=== PATIENT | female | born 1930 | race Caucasian/White ===

== ENCOUNTER 2016-08-20 15:05 | Inpatient (IN) | payer OTHER, MEDICARE ==
[~2016-08-20] VITALS: Ht 152.4 cm; Wt 55.0 kg
[2016-08-20 15:06] VITALS: BP 141/74; PULSE 90; RESP 14; TEMP 98.4; O2SAT 95
--- NOTE | 2016-08-20 15:59 | PD ---
HPI . Dementia with behavioral disturbance Chief Complaint: Psychiatric Symptoms Time Seen by Provider: 15:53 Travel History International Travel<30 days: No Contact w/Intl Traveler<30days: No Traveled to known affect area: No History of Present Illness HPI The history is obtained entirely from the [id number]-[id number]-ccz because of both dementia and language barrier. The [id number] states that the patient has been physically well. However, she has been becoming progressively more aggressive. She is starting to physically fight with family members. She is claiming that she is going to take all of her money out of the bank and go back to [place]. The bdtmdlyr-bs-eky that the patient is not safe at home. PFSH Social History Tobacco Use: No Allergies-Medications (Allergen,Severity, Reaction): Coded Allergies: No Known Allergies (Unverified , 08/20/16) Reported Meds & Prescriptions Reported Meds & Active Scripts Active Reported Quetiapine (Quetiapine Fumarate) 25 Mg Tab 25 Mg PO DAILY Isosorbide Mononitrate ER (Isosorbide Mononitrate) 60 Mg Tab 60 Mg PO DAILY Lisinopril 2.5 Mg Tab 2.5 Mg PO DAILY Atenolol 25 Mg Tab 12.5 Mg PO DAILY Atorvastatin (Atorvastatin Calcium) 40 Mg Tab 40 Mg PO HS Sertraline (Sertraline HCl) 25 Mg Tab 25 Mg PO DAILY Donepezil 10 Mg Tab 10 Mg PO HS Namenda (Memantine) 10 Mg Tab 10 Mg PO BID Warfarin 3 Mg Tab 3 Mg PO DAILY Aspirin 81 Mg Chew 81 Mg CHEW DAILY Review of Systems ROS Limitations: Language Barrier, Poor Historian Physical Exam Narrative GENERAL: This is an angry appearing elderly woman who is currently sitting calmly in a chair. However, she reportedly just slammed her purse down in triage. SKIN: Warm and dry. HEAD: Atraumatic. Normocephalic. EYES: Pupils equal and round. ENT: No nasal bleeding or discharge. Mucous membranes pink and moist. NECK: Trachea midline. CARDIOVASCULAR: Regular rate and rhythm. RESPIRATORY: No accessory muscle use. GASTROINTESTINAL: Abdomen soft, non-tender, nondistended. MUSCULOSKELETAL: No obvious deformities. No edema. NEUROLOGICAL: Awake and alert. No obvious cranial nerve deficits. Motor grossly within normal limits. PSYCHIATRIC: Patient appears angry. She has reportedly had outbursts. Data Data Last Documented VS Vital Signs Date Time Temp Pulse Resp B/P Pulse Ox O2 Delivery O2 Flow Rate FiO2 08/20/16 15:06 98.4 90 14 141/74 95 Room Air Orders Complete Blood Count With Diff (08/20/16 15:53) Comprehensive Metabolic Panel (08/20/16 15:53) Urinalysis - C+S If Indicated (08/20/16 15:53) Electrocardiogram (08/20/16 15:53) Psych Screen (08/20/16 15:53) Drug Screen, Random Urine (08/20/16 15:53) MDM Medical Decision Making Medical Screen Exam Complete: Yes Emergency Medical Condition: Yes Medical Record Reviewed: Yes (she has no previous records here for review.) Differential Diagnosis Differential diagnosis includes infection, intoxication, psychosis, dementia with behavioral disturbance. Narrative Course Patient presents voluntarily for evaluation of dementia with progressively worsening behavioral disturbance. The [id number]-[id number] states that the police have been involved and he intended to bring her here as a [place] Act in there custody. However, the patient agreed to come voluntarily as long as her came with her. She will be cleared medically. Diagnosis Primary Impression: Dementia with behavioral disturbance Qualified Code: G30.1 - Late onset Alzheimer's disease with behavioral disturbance Condition: Stable Juany Torre MD Aug 20, 2016 15:59
[2016-08-20] MEDS ORDERED: QUET1TAB7 PO (16:05)
[2016-08-20] MEDS ORDERED: DONE10TA7 PO (16:05)
[2016-08-20] MEDS ORDERED: WARF-58 PO ×2 (16:05→23:43)
[2016-08-20] MEDS ORDERED: LISI2.5T3 PO (16:05)
[2016-08-20] MEDS ORDERED: NAME10TA PO (16:05)
[2016-08-20] MEDS ORDERED: ATOR40TA16 PO (16:05)
[2016-08-20] MEDS ORDERED: ATEN25TA PO (16:05)
[2016-08-20] MEDS ORDERED: SERT25TA83 PO (16:05)
[2016-08-20] MEDS ORDERED: ISOS60TA PO (16:05)
[2016-08-20] MEDS ORDERED: ASPI81CH CHEW (16:05)
[2016-08-20 16:45] LABS: AUTOMATED NEUTROPHIL # 4.7 TH/MM3 (1.8-7.7); BASOPHIL % 0.3 % (0.0-2.0); EOSINOPHIL # 0.1 TH/MM3 (0-0.4); EOSINOPHIL % 0.9 % (0.0-4.0); HEMO FLAGS DIFF FINAL; LYMPH % 23.2 % (9.0-44.0); LYMPHOCYTE # 1.6 TH/MM3 (1.0-4.8); MEAN CELL VOLUME 93.9 FL (80.0-100.0); MEAN CORPUSCULAR HGB CONC 34.1 % (32.0-36.0); MONO % 8.2 % (0.0-8.0); NEUT % 67.4 % (16.0-70.0); PLATELET COUNT 180 TH/MM3 (150-450); RED BLOOD COUNT 3.94 MIL/MM3 (4.00-5.30); RED CELL DISTRIBUTION WIDTH 14.8 % (11.6-17.2)
[2016-08-20 17:04] LABS: ALT (GPT) 26 U/L (10-53); ANION GAP 10 MEQ/L (5-15); AST (GOT) 26 U/L (15-37); BICARBONATE 23.2 MEQ/L (21.0-32.0); BLOOD UREA NITROGEN 23 MG/DL (7-18); CHLORIDE 108 MEQ/L (98-107); POTASSIUM 4.2 MEQ/L (3.5-5.1); SODIUM (NA) 141 MEQ/L (136-145)
[2016-08-20 17:08] LABS: ALKALINE PHOSPHATASE 156 U/L (45-117); GLOMERULAR FILTRATION RATE 36 ML/MIN (>89); TOTAL BILIRUBIN ADULT 0.4 MG/DL (0.2-1.0)
[2016-08-20 17:08] LABS: BACTERIA, URINE RARE /hpf; BLOOD, URINE TRACE (NEG); COMMENT (UR) CULT NOT INDICATED; CULTURE IF INDICATED CULT NOT INDICATED; GLUCOSE,URINE NEG (NEG); KETONE, URINE NEG (NEG); NITRITE,URINE NEG (NEG); RENAL EPITHELIAL CELLS <1 /hpf; SQUAMOUS EPITHELIAL CELL URINE 1 /hpf (0-5); URINE COLOR YELLOW (YELLW/STRAW)
[2016-08-20 17:13] LABS: AMPHETAMINE, URINE NEG (NEG); BARBITURATES, URINE NEG (NEG); COCAINE, URINE NEG (NEG)
[2016-08-20 20:00] VITALS: BP 148/87; PULSE 88; RESP 16
[2016-08-20] MEDS ORDERED: WARF-23 PO (23:04)
[2016-08-20] MEDS ORDERED: COUM5TAB PO (23:43)
[2016-08-20] MEDS ORDERED: PILL SPLITTER OTHER PRN (23:45)
[2016-08-21] MEDS: MEMANTINE HCL 5 MG TAB PO SCH ×3 (00:15→21:47)
[2016-08-21] MEDS: DONEPEZIL HCL 5 MG TAB PO SCH ×2 (00:15→21:47)
[2016-08-21] MEDS: ATORVASTATIN 40 MG TAB PO SCH ×2 (00:16→21:47)
[2016-08-21 00:47] VITALS: BP 188/86; PULSE 90; RESP 18; TEMP 97.9; O2SAT 97
[2016-08-21 05:29] VITALS: BP 143/63; PULSE 91; RESP 14; TEMP 98.3; O2SAT 97
[2016-08-21] MEDS ORDERED: cloNIDine HCL 0.1 MG TAB PO PRN (06:00)
[2016-08-21 07:40] LABS: AUTOMATED NEUTROPHIL # 3.2 TH/MM3 (1.8-7.7); BASOPHIL % 0.6 % (0.0-2.0); EOSINOPHIL # 0.1 TH/MM3 (0-0.4); EOSINOPHIL % 1.8 % (0.0-4.0); HEMO FLAGS DIFF FINAL; LYMPH % 25.7 % (9.0-44.0); LYMPHOCYTE # 1.4 TH/MM3 (1.0-4.8); MEAN CELL VOLUME 92.7 FL (80.0-100.0); MEAN CORPUSCULAR HEMOGLOBIN 31.8 PG (27.0-34.0); MEAN CORPUSCULAR HGB CONC 34.3 % (32.0-36.0); MONO % 12.5 % (0.0-8.0); NEUT % 59.4 % (16.0-70.0); PLATELET COUNT 164 TH/MM3 (150-450); RED BLOOD COUNT 3.67 MIL/MM3 (4.00-5.30); RED CELL DISTRIBUTION WIDTH 14.7 % (11.6-17.2); WHITE BLOOD COUNT 5.4 TH/MM3 (4.0-11.0)
[2016-08-21 07:41] LABS: INTERNATIONAL NORMALIZED RATIO 2.2 RATIO; PROTHROMBIN TIME - PATIENT 24.9 SEC (9.8-11.6)
[2016-08-21 08:00] LABS: ANION GAP 10 MEQ/L (5-15); BICARBONATE 23.9 MEQ/L (21.0-32.0); BLOOD UREA NITROGEN 18 MG/DL (7-18); CHLORIDE 110 MEQ/L (98-107); GLOMERULAR FILTRATION RATE 45 ML/MIN (>89); POTASSIUM 3.9 MEQ/L (3.5-5.1); SODIUM (NA) 144 MEQ/L (136-145)
[2016-08-21 08:02] LABS: HDL CHOLESTEROL 63.1 MG/DL (40.0-60.0); LDL CHOLESTEROL 63 MG/DL (0-99)
--- NOTE | 2016-08-21 09:31 | PD.PN.STU ---
Subjective Remarks Patient is an 85 yo female admitted to the hospital last night, who is here due to aggressive and combative behavior as per her family over the last few days. Patient was visited in her room by Dr. Rey De La Rosa, Nurse Christi, and OLIVIA Toledo. She was initally lying in bed, only to sit upright to speak to a tele-head inspector via the computer. She cooperates well and spoke to the head inspector efficiently. She appears to be confused on where she is, and what she is here for, as well as who she lives with. She states she lives with her and has one son. Objective Vitals Vital Signs Date Time Temp Pulse Resp B/P Pulse Ox O2 Delivery O2 Flow Rate FiO2 08/21/16 05:29 98.3 91 14 143/63 97 08/21/16 00:47 97.9 90 18 188/86 97 08/20/16 20:00 88 16 148/87 08/20/16 15:06 98.4 90 14 141/74 95 Room Air I/O 08/20/16 08/20/16 08/20/16 08/21/16 08/21/16 08/21/16 07:00 15:00 23:00 07:00 15:00 23:00 Intake Total 0 ml Balance 0 ml Intake Oral 0 ml Result Diagram: 08/21/16 0654 08/21/16 0654 [place] Child M3 Aug 21, 2016 09:31
--- NOTE | 2016-08-21 09:31 | HHI.HP ---
Provisional Diagnosis Admission Date Aug 20, 2016 at 22:53 Damar I. Dementia with behavioral disturbances F03.91 Certification of Person's Competence To Provide Express and Informed Consent I have personally examined Zarina Garcia , a person being served at [facility] on, Aug 21, 2016 09:16. Express and informed consent means consent voluntarily given in writing, by a competent person, after sufficient explanation and disclosure of the subject matter involved to enable the person to make a knowing and willful decision without any element of force, fraud, deceit, duress, or other form of constraint or coercion. This person is 18 years of age or older, is not now known to be incompetent to consent to treatment with a guardian advocate, and does not have a health care surrogate or proxy currently making medical treatment decisions. I have found this person to be one of the following: [] Competent to provide express and informed consent, as defined above, for voluntary admission to this facility and is competent to provide express and informed consent for treatment. He/she has the consistent capacity to make well reasoned, willful, and knowing decisions concerning his or her medical or mental health treatment. The person fully and consistently understands the purpose of the admission for examination/placement and is fully capable of personally exercising all rights [place] [x] Incompetent to provide express and informed consent to voluntary admission, and this is incompetent to provide express and informed consent to treatment. The person must be transferred to involuntary status and a petition for a guardian advocate filed with the Circuit Court. [] Refusing to provide express and informed consent to voluntary admission but is competent to provide express and informed consent for treatment. The person must be discharged or transferred to involuntary status. Form shall be completed within 24 hours of a person's arrival at the receiving facility and filed in the clinical record of each person: 1. Admitted on a voluntary basis 2. Permitted to provide express and informed consent to his/her own treatment 3. Allowed to transfer from involuntary to voluntary status 4. Prior to permitting a person to consent to his or her own treatment after having been previously found incompetent to consent to treatment. History of Present Illness Capacity: Lacks Capacity HPI Patient is an 85-year-old Samoan female Lao speaking was initially brought to the ED by and Dillon act in the ED by Dr. Nigel regand 20 August at 1600 hrs. stating dementia with behavioral disturbances aggressive towards others threatening to leave the country to an area or no one is available to care for her not eating appropriately despite adequate food availability. Patient seen screened in ED and toxicology negative urinalysis negative. Patient seen in her room with nurse Christi, medical student [place], with an information consultant services through the computer. Patient is somewhat nervous and anxious responding to questions through the monitor. She is disoriented in all 4 spheres though she denies voices or visions stating she lives with her and no one else. Stating that her father is alive and 60 years old. She does denies suicidality homicidality, denies alcohol or drugs , denies any past psychiatric history. She is otherwise continued to be guarded and vigilant. She did deny any physical and/or sexual abuse. She stated she had 2 children. This time the patient does meet criteria for involuntary psychiatric hospitalization under the Dillon act I'll do first opinion requests second opinion I feel she does not have capacity thus I'll ask for healthcare surrogate and a guardian advocate. We do have a hospitalist consult to elicits patient is a history of cardiac issues and has a pacemaker at the present time that he is functioning. We'll call the patient's daughter she'll attempt to meet with us today at about 11 AM she did state to the nurse that she has power of transactional attorney. We will meet with her to further discuss and get details about this lady and discuss possible placement and behaviors and medication Review of Systems ROS Limitations: Other (language difficulties) Constitutional: DENIES: Diaphoretic episodes, Fatigue, Fever, Weight gain, Weight loss, Chills, Dizziness, Change in appetite, Night Sweats Endocrine: DENIES: Abnorml menstrual pattern, Heat/cold intolerance, Polydipsia , Polyuria, Polyphagia Eyes: DENIES: Blurred vision, Diplopia, Eye inflammation, Eye pain, Vision loss , Photosensitivity, Double Vision Ears, nose, mouth, throat: DENIES: Tinnitus, Hearing loss, Vertigo, Nasal discharge, Oral lesions, Throat pain, Hoarseness, Ear Pain, Running Nose, Epistaxis, Sinus Pain, Toothache, Odynophagia Respiratory: DENIES: Apneas, Cough, Snoring, Wheezing, Hemoptysis, Sputum production, Shortness of breath Cardiovascular: DENIES: Chest pain, Palpitations, Syncope, Dyspnea on Exertion , PND, Lower Extremity Edema, Orthopnea, Claudication Gastrointestinal: DENIES: Abdominal pain, Black stools, Bloody stools, Constipation, Diarrhea, Nausea, Vomiting, Difficulty Swallowing, Anorexia Musculoskeletal: DENIES: Joint pain, Muscle aches, Stiffness, Joint Swelling, Back pain, Neck pain Integumentary: DENIES: Abnormal pigmentation, Pruritus, Rash, Nail changes, Breast masses, Breast skin changes, Nipple discharge Hematologic/lymphatic: DENIES: Bruising, Lymphadenopathy Immunologic/allergic: DENIES: Eczema, Urticaria Neurologic: DENIES: Abnormal gait, Headache, Localized weakness, Paresthesias, Seizures, Speech Problems, Tremor, Poor Balance Psychiatric: COMPLAINS OF: Anxiety, Confusion, Agitation (at home) Past Psych History Psychological trauma history Denies Violence risk - others (6 mos) Has been aggressive towards family Violence risk - self (6 mos) Denies Substance Abuse History Drugs/Alcohol past 12 months Denies Past Family Social History Coded Allergies: No Known Allergies (Unverified , 08/20/16) Past Medical History History of pacemaker insertion about 5 years ago Reported Medications Warfarin (Coumadin)5 Mg Tab5 Mg PO DAILY #30 TAB Ref 0 08/20/16 Warfarin 3 Mg Tab3 Mg PO DAILY #30 TAB Ref 0 08/20/16 Quetiapine 25 Mg Tab25 Mg PO DAILY #30 TAB Ref 0 08/20/16 Isosorbide Mononitrate ER 60 Mg Tab60 Mg PO DAILY #30 TAB Ref 0 08/20/16 Lisinopril 2.5 Mg Tab2.5 Mg PO DAILY #30 TAB Ref 0 08/20/16 Atenolol 25 Mg Tab12.5 Mg PO DAILY #30 TAB Ref 0 08/20/16 Atorvastatin 40 Mg Tab40 Mg PO HS #30 TAB Ref 0 08/20/16 Sertraline 25 Mg Tab25 Mg PO DAILY #30 TAB Ref 0 08/20/16 Donepezil 10 Mg Tab10 Mg PO HS #30 TAB Ref 0 08/20/16 Memantine (Namenda)10 Mg Tab10 Mg PO BID #30 TAB Ref 0 08/20/16 Aspirin 81 Mg Chew81 Mg CHEW DAILY Ref 0 08/20/16 Discontinued Reported Medications Warfarin 5 Mg Tab5 Mg PO WEEKLY #30 TAB Ref 0 08/20/16 Warfarin 3 Mg Tab3 Mg PO DAILY #30 TAB Ref 0 08/20/16 Current Medications Medications (Trade) Dose Ordered Sig/Mauricio Route Start Time Stop Time Status Last Admin (Aspirin Chew) 81 mg DAILY PO 08/21/16 09:00 (Namenda) 10 mg BID PO 08/20/16 23:29 08/21/16 00:15 (Aricept) 10 mg HS PO 08/20/16 23:30 08/21/16 00:15 (Zoloft) 25 mg DAILY PO 08/21/16 09:00 (Lipitor) 40 mg HS PO 08/20/16 23:31 08/21/16 00:16 (Tenormin) 12.5 mg DAILY PO 08/21/16 09:00 (Imdur) 60 mg DAILY PO 08/21/16 09:00 (SEROquel) 25 mg DAILY PO 08/21/16 09:00 (Pill Splitter) 1 ea UNSCH PRN OTHER 08/20/16 23:45 Lisinopril 2.5 mg 2.5 mg DAILY PO 08/21/16 09:00 Hold (Coumadin Consult Pharmacy) 0 ml @ 0 mls/hr UNSCH OTHER 08/21/16 06:00 (Catapres) 0.1 mg Q6H PRN PO 08/21/16 06:00 Family History Denies history mental illness and family Social History Patient given confusing history about whom she lives with initially stating she has one child is some that appears her daughter brought her in Patient's Strengths (min. 2) Patient verbal appears cooperative appears to have supportive family Physical Exam Patient seen screened in ED exam reviewed and agreed with the signs blood pressure 143/63 pulse 91 respirations 14 Vital Signs Vital Signs Date Time Temp Pulse Resp B/P Pulse Ox O2 Delivery O2 Flow Rate FiO2 08/21/16 05:29 98.3 91 14 143/63 97 08/20/16 15:06 Room Air Mental Status Examination Alert diffusely disorganized and confused female appears younger than her stated age ready for years. She is guarded in her responses with her significant language difficulties Appearance Fairly clean and neat Speech: Other (patient speaks only Lao that appears to be somewhat confused and disorganized) Orientation: Person (vaguely) Memory: Impaired (describe) Thought Process: Circumstantial Thought Content: Unremarkable Hallucination Type: None Attention and Concentration: Other (fair) Suicidal Ideation: No Previous Suicide Attempts: No Homicidal Ideation: No (though aggressive towards family) Previous Homicide Attempts: No Insight: Poor Judgement: Poor Affect: Other (slight increase range of motion intensity) Mood: Sad, Anxious Motor Activity: Normal gait Assessment & Plan Problem List: (1) Dementia with behavioral disturbance ICD Code: F03.91 Assessment & Plan Estimated LOS 5-7: days this time patient meets criteria for involuntary psychiatric hospitalization of the Dillon act I'll do first opinion requests second opinion. I feel she does not have capacity thus I'll ask for healthcare surrogate and a guardian advocate. We'll meet with patient's family today at about 11 AM to get further information Discharge Planning To be determined Request HC Surrog/Guard Advoc?: Yes Problem Qualifiers (1) Dementia with behavioral disturbance: Qualified Code: G30.1 - Late onset Alzheimer's disease with behavioral disturbance Ruben De La Rosa MD Aug 21, 2016 09:31
[2016-08-21] MEDS ORDERED: MAGNESIUM HYDROXIDE SUSP 30 ML CUP PO PRN (10:00)
[2016-08-21] MEDS: ISOSORBIDE MONONITRATE 60 MG TAB PO SCH (10:25)
[2016-08-21] MEDS: QUEtiapine FUMARATE 25 MG TAB PO SCH (10:25)
[2016-08-21] MEDS: SERTRALINE HCL 50 MG TAB PO SCH (10:27)
[2016-08-21] MEDS: ASPIRIN 81 MG CHEW TAB PO SCH (10:28)
[2016-08-21] MEDS: ATENOLOL 25 MG TAB PO SCH (10:28)
--- NOTE | 2016-08-21 10:55 | PD.CONS ---
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 She is now admitted to inpatient psychiatry unit for further evaluation. Consulted for medical management. Patient seen today. Romanian-speaking. States she is doing well. Confirmed medical history of CABG with mechanical valve on Coumadin and with pacemaker. She cannot remember her medications nor latest INR. States that she is being followed by her primary care doctor. Denies pain and discomfort. Denies SOB/ dyspnea. Denies chest pain, palpitations, headaches, dizziness. Denies fevers, chills, n/v/d. Review of Systems Except as stated in HPI: all other systems reviewed are Neg Past Family Social History Allergies: Coded Allergies: No Known Allergies (Unverified , 08/20/16) Past Medical History CAD - recent stress tests on Imdur HTN HLD Polyps Past Surgical History CABG with AVR mechanical valve 5 years ago - on Coumadin Polyp removal Reported Medications Quetiapine (Quetiapine Fumarate) 25 Mg Tab 25 Mg PO DAILY Isosorbide Mononitrate ER (Isosorbide Mononitrate) 60 Mg Tab 60 Mg PO DAILY Lisinopril 2.5 Mg Tab 2.5 Mg PO DAILY Atenolol 25 Mg Tab 12.5 Mg PO DAILY Atorvastatin (Atorvastatin Calcium) 40 Mg Tab 40 Mg PO HS Sertraline (Sertraline HCl) 25 Mg Tab 25 Mg PO DAILY Donepezil 10 Mg Tab 10 Mg PO HS Namenda (Memantine) 10 Mg Tab 10 Mg PO BID Warfarin 3 Mg Tab 3 Mg PO DAILY Aspirin 81 Mg Chew 81 Mg CHEW DAILY Active Ordered Medications Current Medications Medications (Trade) Dose Ordered Sig/Mauricio Route Start Time Stop Time Status Last Admin (Aspirin Chew) 81 mg DAILY PO 08/21/16 09:00 08/21/16 10:28 (Namenda) 10 mg BID PO 08/20/16 23:29 08/21/16 10:26 (Aricept) 10 mg HS PO 08/20/16 23:30 08/21/16 00:15 (Zoloft) 25 mg DAILY PO 08/21/16 09:00 08/21/16 10:27 (Lipitor) 40 mg HS PO 08/20/16 23:31 08/21/16 00:16 (Tenormin) 12.5 mg DAILY PO 08/21/16 09:00 08/21/16 10:28 (Imdur) 60 mg DAILY PO 08/21/16 09:00 08/21/16 10:25 (SEROquel) 25 mg DAILY PO 08/21/16 09:00 08/21/16 10:25 (Pill Splitter) 1 ea UNSCH PRN OTHER 08/20/16 23:45 Lisinopril 2.5 mg 2.5 mg DAILY PO 08/21/16 09:00 (Coumadin Consult Pharmacy) 0 ml @ 0 mls/hr UNSCH OTHER 08/21/16 06:00 (Catapres) 0.1 mg Q6H PRN PO 08/21/16 06:00 (Tylenol) 650 mg Q4H PRN PO 08/21/16 10:00 (Milk Of Magnesia Liq) 30 ml DAILY PRN PO 08/21/16 10:00 (Mag-Al Plus Susp Liq) 30 ml Q6H PRN PO 08/21/16 10:00 (Coumadin) 3 mg DAILY@1600 PO 08/21/16 16:00 08/21/16 15:50 Family History Mother with hypertension Social History Denies alcohol use Denies tobacco use Denies illicit drug use Physical Exam Vital Signs Vital Signs Date Time Temp Pulse Resp B/P Pulse Ox O2 Delivery O2 Flow Rate FiO2 08/21/16 05:29 98.3 91 14 143/63 97 08/21/16 00:47 97.9 90 18 188/86 97 08/20/16 20:00 88 16 148/87 08/20/16 15:06 98.4 90 14 141/74 95 Room Air Physical Exam GENERAL: This is a well-nourished, well-developed patient, in no apparent distress. SKIN: No rashes, ecchymoses or lesions. Mid sternal scar from previous CABG. HEAD: Atraumatic. Normocephalic. No temporal or scalp tenderness. EYES: Pupils equal round and reactive. Extraocular motions intact. No scleral icterus. No injection or drainage. ENT: Nose without bleeding. Throat without erythema. Uvula midline. Airway patent. NECK: Trachea midline. No JVD or lymphadenopathy. Supple, nontender, no meningeal signs. CARDIOVASCULAR: Regular rate and rhythm, mechanical click heard,no gallops, or rubs. RESPIRATORY: Clear to auscultation. Breath sounds equal bilaterally. No wheezes , rales, or rhonchi. GASTROINTESTINAL: Abdomen soft, non-tender, nondistended. No hepato-splenomegaly , or palpable masses. No guarding. MUSCULOSKELETAL: Extremities without clubbing, cyanosis, or edema. No joint tenderness, effusion, or edema noted. No calf tenderness. Negative Homans sign bilaterally. NEUROLOGICAL: Awake and alert. Motor and sensory grossly within normal limits. Five out of 5 muscle strength in all muscle groups. Normal speech. Laboratory Laboratory Tests Test 08/20/16 08/20/16 08/21/16 16:15 16:40 06:54 White Blood Count 7.0 5.4 Red Blood Count 3.94 3.67 Hemoglobin 12.6 11.7 Hematocrit 37.0 34.0 Mean Corpuscular Volume 93.9 92.7 Mean Corpuscular Hemoglobin 32.0 31.8 Mean Corpuscular Hemoglobin 34.1 34.3 Concent Red Cell Distribution Width 14.8 14.7 Platelet Count 180 164 Mean Platelet Volume 8.8 9.2 Neutrophils (%) (Auto) 67.4 59.4 Lymphocytes (%) (Auto) 23.2 25.7 Monocytes (%) (Auto) 8.2 12.5 Eosinophils (%) (Auto) 0.9 1.8 Basophils (%) (Auto) 0.3 0.6 Neutrophils # (Auto) 4.7 3.2 Lymphocytes # (Auto) 1.6 1.4 Monocytes # (Auto) 0.6 0.7 Eosinophils # (Auto) 0.1 0.1 Basophils # (Auto) 0.0 0.0 CBC Comment DIFF FINAL DIFF FINAL Differential Comment Sodium Level 141 144 Potassium Level 4.2 3.9 Chloride Level 108 110 Carbon Dioxide Level 23.2 23.9 Anion Gap 10 10 Blood Urea Nitrogen 23 18 Creatinine 1.40 1.14 Estimat Glomerular Filtration 36 45 Rate Random Glucose 109 94 Calcium Level 9.4 8.8 Total Bilirubin 0.4 Aspartate Amino Transf 26 (AST/SGOT) Alanine Aminotransferase 26 (ALT/SGPT) Alkaline Phosphatase 156 Total Protein 7.9 Albumin 4.2 Urine Color YELLOW Urine Turbidity CLEAR Urine pH 5.0 Urine Specific [place] 1.013 Urine Protein TRACE Urine Glucose (UA) NEG Urine Ketones NEG Urine Occult Blood TRACE Urine Nitrite NEG Urine Bilirubin NEG Urine Urobilinogen LESS THAN 2.0 Urine Leukocyte Esterase LARGE Urine RBC 3 Urine WBC 4 Urine Squamous Epithelial 1 Cells Urine Renal Epithelial Cells <1 Urine Bacteria RARE Microscopic Urinalysis Comment CULT NOT INDICATED Urine Opiates Screen NEG Urine Barbiturates Screen NEG Urine Amphetamines Screen NEG Urine Benzodiazepines Screen NEG Urine Cocaine Screen NEG Urine Cannabinoids Screen NEG Prothrombin Time 24.9 Prothromb Time International 2.2 Ratio Triglycerides Level 78 Cholesterol Level 142 LDL Cholesterol 63 HDL Cholesterol 63.1 Cholesterol/HDL Ratio 2.25 Result Diagram: 08/21/16 0654 08/21/16 0654 Assessment and Plan Problem List: (1) Dementia with behavioral disturbance ICD Code: F03.91 Status: Acute (2) Hx of CABG ICD Code: Z95.1 Status: Acute (3) HTN (hypertension) ICD Code: I10 Status: Acute (4) CAD (coronary artery disease) ICD Code: I25.10 Status: Acute Assessment and Plan Patient is an 85 year old female with primary medical history of CAD, HTN, 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 She is now admitted to inpatient psychiatry unit for further evaluation. Consulted for medical management. Dementia with aggressive behavior - managed by psychiatry team CAD - recent negative stress test as per daughter - Continue on Imdur, ASA 81mg CABG in the past, AVR mechanical valve - Continue Coumadin, monitor INR - Keep INR 2.5-3.5, pharmacy to dose HTN - continue home meds atenolol 12.5 daily, Imdur 60mg daily, lisinopril 2.5mg - Monitor BP trend Acute kidney injurym possibly on chronic kidney disease - improving - [employer] 1.40 --> 1.14 08/21/16 DVT prop ambulation Thank you for this consultation. We will follow patient with you. Written by Emanuel Dillard, acting as scribe for Dr. Bullard on 08/21/16 at 10: 28. The documentation accurately reflects the work performed [id number] by me on at 19:20. Code Status Full code Discussed Condition With Patient, nursing, daughter Problem Qualifiers (1) Dementia with behavioral disturbance: Qualified Code: G30.1 - Late onset Alzheimer's disease with behavioral disturbance Emanuel Boswell Aug 21, 2016 10:54 Shoaib Bullard MD Aug 21, 2016 19:21
--- NOTE | 2016-08-21 15:47 | PD.CONS ---
Provisional Diagnosis Admission Date Aug 20, 2016 at 22:53 Benton I. 1. Dementia with behavioral disturbance Benton II. Deferred Benton V. GAF is 30 presently History of Present Illness Service Psychiatry Consult Requested By Dr. De La Rosa Reason for Consult Second opinion Primary Care Physician Non-Staff HPI From Dr. De La Rosa's H&P: Patient is an 85-year-old [place] female Syriac speaking was initially brought to the ED by family and Dillon act in the ED by Dr. Manning dated 20 August at 1600 hrs. stating dementia with behavioral disturbances aggressive towards others threatening to leave the country to an area or no one is available to care for her not eating appropriately despite adequate food availability. Patient seen screened in ED and toxicology negative urinalysis negative. Patient seen in her room with nurse Christi, medical student [place], with an furniture removalist's assistant services through the computer. Patient is somewhat nervous and anxious responding to questions through the monitor. She is disoriented in all 4 spheres though she denies voices or visions stating she lives with her and no one else. Stating that her father is alive and 60 years old. She does denies suicidality homicidality, denies alcohol or drugs , denies any past psychiatric history. She is otherwise continued to be guarded and vigilant. She did deny any physical and/or sexual abuse. She stated she had 2 children. This time the patient does meet criteria for involuntary psychiatric hospitalization under the Dillon act I'll do first opinion requests second opinion I feel she does not have capacity thus I'll ask for healthcare surrogate and a guardian advocate. We do have a hospitalist consult to elicits patient is a history of cardiac issues and has a pacemaker at the present time that he is functioning. We'll call the patient's daughter she'll attempt to meet with us today at about 11 AM she did state to the nurse that she has power of criminal defense attorney. We will meet with her to further discuss and get details about this lady and discuss possible placement and behaviors and medication On my examination today: Patient seen and examined with nurse Cerda acting as furniture removalist's assistant. Chart reviewed. On my examination today the patient reports that she is in the hospital because she came to get her who had been hospitalized here for 5 days. She says that when she came to get him "I had to stay because I wasn't feeling good." She says that she has a history of cardiovascular disease. She is disoriented and presently calm although apparently she was agitated at home. She denies any auditory hallucinations but does endorse visual hallucinations saying that she ignores them because she doesn't like to dwell on the negative. She denies any suicidal or homicidal ideation noting that she is a [employer]. Psychiatric interview is limited because of her degree of cognitive impairment. I am unable to obtain any past psychiatric, family, chemical dependency or social history from this patient due to her cognitive impairment. She is able to tell me that she is originally in [place] and in fact believes that we are still there now. Review of Systems ROS Limitations: Poor Historian Other No somatic complaints today Past Family Social History Coded Allergies: No Known Allergies (Unverified , 08/20/16) Past Medical History See electronic medical record Reported Medications Warfarin (Coumadin)5 Mg Tab5 Mg PO DAILY #30 TAB Ref 0 08/20/16 Warfarin 3 Mg Tab3 Mg PO DAILY #30 TAB Ref 0 08/20/16 Quetiapine 25 Mg Tab25 Mg PO DAILY #30 TAB Ref 0 08/20/16 Isosorbide Mononitrate ER 60 Mg Tab60 Mg PO DAILY #30 TAB Ref 0 08/20/16 Lisinopril 2.5 Mg Tab2.5 Mg PO DAILY #30 TAB Ref 0 08/20/16 Atenolol 25 Mg Tab12.5 Mg PO DAILY #30 TAB Ref 0 08/20/16 Atorvastatin 40 Mg Tab40 Mg PO HS #30 TAB Ref 0 08/20/16 Sertraline 25 Mg Tab25 Mg PO DAILY #30 TAB Ref 0 08/20/16 Donepezil 10 Mg Tab10 Mg PO HS #30 TAB Ref 0 08/20/16 Memantine (Namenda)10 Mg Tab10 Mg PO BID #30 TAB Ref 0 08/20/16 Aspirin 81 Mg Chew81 Mg CHEW DAILY Ref 0 08/20/16 Discontinued Reported Medications Warfarin 5 Mg Tab5 Mg PO WEEKLY #30 TAB Ref 0 08/20/16 Warfarin 3 Mg Tab3 Mg PO DAILY #30 TAB Ref 0 08/20/16 Current Medications Medications (Trade) Dose Ordered Sig/Mauricio Route Start Time Stop Time Status Last Admin (Aspirin Chew) 81 mg DAILY PO 08/21/16 09:00 08/21/16 10:28 (Namenda) 10 mg BID PO 08/20/16 23:29 08/21/16 10:26 (Aricept) 10 mg HS PO 08/20/16 23:30 08/21/16 00:15 (Zoloft) 25 mg DAILY PO 08/21/16 09:00 08/21/16 10:27 (Lipitor) 40 mg HS PO 08/20/16 23:31 08/21/16 00:16 (Tenormin) 12.5 mg DAILY PO 08/21/16 09:00 08/21/16 10:28 (Imdur) 60 mg DAILY PO 08/21/16 09:00 08/21/16 10:25 (SEROquel) 25 mg DAILY PO 08/21/16 09:00 08/21/16 10:25 (Pill Splitter) 1 ea UNSCH PRN OTHER 08/20/16 23:45 Lisinopril 2.5 mg 2.5 mg DAILY PO 08/21/16 09:00 (Coumadin Consult Pharmacy) 0 ml @ 0 mls/hr UNSCH OTHER 08/21/16 06:00 (Catapres) 0.1 mg Q6H PRN PO 08/21/16 06:00 (Tylenol) 650 mg Q4H PRN PO 08/21/16 10:00 (Milk Of Magnesia Liq) 30 ml DAILY PRN PO 08/21/16 10:00 (Mag-Al Plus Susp Liq) 30 ml Q6H PRN PO 08/21/16 10:00 (Coumadin) 3 mg DAILY@1600 PO 08/21/16 16:00 Patient's Strengths (min. 2) In a monitored setting. Verbally fluent. Physical Exam Physical examination completed by ED provider. On my examination today, patient appears to be a well-nourished and well-developed female in no acute physical distress. No abnormal motor movements noted. Labs and vital signs reviewed. Vital Signs Vital Signs Date Time Temp Pulse Resp B/P Pulse Ox O2 Delivery O2 Flow Rate FiO2 08/21/16 05:29 98.3 91 14 143/63 97 08/20/16 15:06 Room Air Lab Results Item Value Date Time White Blood Count 5.4 TH/MM3 08/21/16 0654 Hemoglobin 11.7 GM/DL 08/21/16 0654 Platelet Count 164 TH/MM3 08/21/16 0654 Sodium Level 144 MEQ/L 08/21/16 0654 Potassium Level 3.9 MEQ/L 08/21/16 0654 Chloride Level 110 MEQ/L H 08/21/16 0654 Carbon Dioxide Level 23.9 MEQ/L 08/21/16 0654 Blood Urea Nitrogen 18 MG/DL 08/21/16 0654 Creatinine 1.14 MG/DL H 08/21/16 0654 Random Glucose 94 MG/DL 08/21/16 0654 Hemoglobin A1c 5.9 % 08/21/16 0654 Aspartate Amino Transf (AST/SGOT) 26 U/L 08/20/16 1615 Alanine Aminotransferase (ALT/SGPT) 26 U/L 08/20/16 1615 Alkaline Phosphatase 156 U/L H 08/20/16 1615 Toxicology negative. Urinalysis results reviewed. Mental Status Examination Patient is in hospital gown. She is somewhat disheveled but appears to be maintaining basic hygiene. She is awake and alert and oriented to person and hospital but believes that we are in [place]. She is unsure of the date. No motoric abnormalities noted. Speech is within normal limits for rate, tone and volume. Mood is fair and affect is blunted. Thought process somewhat disorganized consistent with a cognitive impairment. Associations are somewhat loose. No yoshi delusional material. Denies auditory but does endorse some visual phenomena. Denies suicidal or homicidal ideation. Insight and judgment are likely poor. Assessment & Plan Problem List: (1) Dementia with behavioral disturbance ICD Code: F03.91 Assessment & Plan Given the circumstances of the patient's presentation here and her presentation on my examination today, I concur with Dr. De La Rosa that the patient meets criteria for involuntary psychiatric hospitalization under the Dillon act. I have completed the second opinion paperwork. Further care as per Dr. De La Rosa. Thank you very much for this consultation. Signing off. Discharge Planning Per Dr. 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
[2016-08-21] MEDS: WARFARIN SOD 3 MG TAB PO SCH (15:50)
[2016-08-21 15:55] LABS: HEMOGLOBIN A1b 1.7 %
--- NOTE | 2016-08-21 18:23 | EKG ---
Date Performed: 08/20/2016 Time Performed: 16:38:03 PTAGE: 85 years EKG: NORMAL Sinus rhythm WITH VENTRICULAR PACING NO PRIOR TRACING TO COMPARE. ABNORMAL RHYTHM ECG NO PREVIOUS TRACING DOCTOR: [place] Arana Interpretating Date/Time 08/21/2016 18:21:26
[2016-08-21 20:25] VITALS: BP 153/78; PULSE 69; RESP 15; TEMP 98.9; O2SAT 100
[2016-08-22 05:32] VITALS: BP 141/66; PULSE 64; RESP 16; TEMP 97.9; O2SAT 100
[2016-08-22] MEDS: ASPIRIN 81 MG CHEW TAB PO SCH (08:56)
[2016-08-22] MEDS: QUEtiapine FUMARATE 25 MG TAB PO SCH ×3 (08:56→17:45)
[2016-08-22] MEDS: ISOSORBIDE MONONITRATE 60 MG TAB PO SCH (08:56)
[2016-08-22] MEDS: MEMANTINE HCL 5 MG TAB PO SCH ×2 (08:57→21:20)
[2016-08-22] MEDS: SERTRALINE HCL 50 MG TAB PO SCH (09:00)
[2016-08-22] MEDS: LISINOPRIL 5 MG TAB PO SCH (09:00)
[2016-08-22] MEDS: ATENOLOL 25 MG TAB PO SCH (09:00)
[2016-08-22 09:13] LABS: PROTHROMBIN TIME - PATIENT 22.2 SEC (9.8-11.6)
--- NOTE | 2016-08-22 14:20 | HHI.PYPN ---
Subjective Remarks Patient seen in her room with nurse Christi, patient napping, but arousable to alert continues of language difficulty. Able to recognize me. Appears to respond denying voices. Staff states patient had a good visit with her family today, patient compliant medications will be increasing Seroquel to 3 times a day Review of Systems Except as stated in HPI: all other systems reviewed are Neg Objective Alert: Yes [place]: Person Mood: Anxious, Calm Affect: Restricted Memory Intact: Comment Hallucinations: Other (very poor eye) Delusions: Yes Delusion Type: Paranoid (mildly to vigilant) Suicidal: Ideation (denies) Homicidal: Ideation (denies) Insight/Judgement Very poor Labs Test 08/22/16 08:17 Prothrombin Time 22.2 SEC Prothromb Time International 2.0 RATIO Ratio Vitals/IOs Vital Signs Date Time Temp Pulse Resp B/P Pulse Ox O2 Delivery O2 Flow Rate FiO2 08/22/16 05:32 97.9 64 16 141/66 100 08/20/16 15:06 Room Air Intake and Output 08/21/16 08/21/16 08/22/16 08:00 16:00 00:00 Intake Total 840 ml 240 ml Balance 840 ml 240 ml Assessment & Plan Problem List: (1) Dementia with behavioral disturbance ICD Code: F03.91 Assessment & Plan Estimated LOS: days patient continues demented confuse the no behavior problems at this time. Had good visit with family today. For now continue treatment Justification for Cont. Inpt. At this time patient would decompensate if placed in lower level of care Discharge Planning To be determined Request HC Surrog/Guard Advoc?: Yes Problem Qualifiers (1) Dementia with behavioral disturbance: Qualified Code: G30.1 - Late onset Alzheimer's disease with behavioral disturbance Ruben De La Rosa MD Aug 22, 2016 14:20
[2016-08-22] MEDS: WARFARIN SOD 3 MG TAB PO SCH (15:03)
[2016-08-22] MEDS: ENOXAPARIN SODIUM 60 MG/0.6 ML SYRINGE SQ SCH (15:03)
--- NOTE | 2016-08-22 15:05 | HHI.PR ---
Objective Vitals Vital Signs Date Time Temp Pulse Resp B/P Pulse Ox O2 Delivery O2 Flow Rate FiO2 08/22/16 05:32 97.9 64 16 141/66 100 08/21/16 20:25 98.9 69 15 153/78 100 I/O 08/21/16 08/21/16 08/21/16 08/22/16 08/22/16 08/22/16 07:00 15:00 23:00 07:00 15:00 23:00 Intake Total 360 ml 720 ml 480 ml 0 ml Balance 360 ml 720 ml 480 ml 0 ml Intake Oral 360 ml 720 ml 480 ml 0 ml # Voids 3 3 # Bowel Movements 0 Result Diagram: 08/21/16 0654 08/21/16 0654 A/P Problem List: (1) Dementia with behavioral disturbance ICD Code: F03.91 Status: Acute (2) Hx of CABG ICD Code: Z95.1 Status: Acute (3) HTN (hypertension) ICD Code: I10 Status: Acute (4) CAD (coronary artery disease) ICD Code: I25.10 Status: Acute Problem Qualifiers (1) Dementia with behavioral disturbance: Qualified Code: G30.1 - Late onset Alzheimer's disease with behavioral disturbance Shoaib Bullard MD Aug 22, 2016 15:05
--- NOTE | 2016-08-22 17:56 | HHI.PR ---
Subjective Remarks Follow-up AVR. I was called by nurse secondary to INR 2. Lovenox started to bridge with Coumadin to keep INR between 2.5-3.5 history of AVR. Patient has no complaints no chest pain, shortness of breath, headache, dizziness, numbness and focal weakness. Objective Vitals Vital Signs Date Time Temp Pulse Resp B/P Pulse Ox O2 Delivery O2 Flow Rate FiO2 08/22/16 05:32 97.9 64 16 141/66 100 08/21/16 20:25 98.9 69 15 153/78 100 I/O 08/21/16 08/21/16 08/21/16 08/22/16 08/22/16 08/22/16 07:00 15:00 23:00 07:00 15:00 23:00 Intake Total 360 ml 720 ml 480 ml 0 ml Balance 360 ml 720 ml 480 ml 0 ml Intake Oral 360 ml 720 ml 480 ml 0 ml # Voids 3 3 # Bowel Movements 0 Result Diagram: 08/21/16 0654 08/21/16 0654 Objective Remarks GENERAL: This is a well-nourished, well-developed patient, in no apparent distress. SKIN: No rashes, ecchymoses or lesions. Mid sternal scar from previous CABG. HEAD: Atraumatic. Normocephalic. No temporal or scalp tenderness. EYES: Pupils equal round and reactive. Extraocular motions intact. No scleral icterus. No injection or drainage. ENT: Nose without bleeding. Throat without erythema. Uvula midline. Airway patent. NECK: Trachea midline. No JVD or lymphadenopathy. Supple, nontender, no meningeal signs. CARDIOVASCULAR: Regular rate and rhythm, mechanical click heard,no gallops, or rubs. RESPIRATORY: Clear to auscultation. Breath sounds equal bilaterally. No wheezes , rales, or rhonchi. GASTROINTESTINAL: Abdomen soft, non-tender, nondistended. No guarding. MUSCULOSKELETAL: Extremities without clubbing, cyanosis, or edema. No joint tenderness, effusion, or edema noted. No calf tenderness. Negative Homans sign bilaterally. NEUROLOGICAL: Awake and alert. Motor and sensory grossly within normal limits. Five out of 5 muscle strength in all muscle groups. Normal speech. 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 She is now admitted to inpatient psychiatry unit for further evaluation. Consulted for medical management. Dementia with aggressive behavior - managed by psychiatry team CAD - recent negative stress test as per daughter - Continue on Imdur, ASA 81mg CABG in the past, AVR mechanical valve - Continue Coumadin, monitor INR - Keep INR 2.5-3.5, pharmacy to dose. Start Lovenox 50 mg every 12 hours to bridge until INR therapeutic HTN - continue home meds atenolol 12.5 daily, Imdur 60mg daily, lisinopril 2.5mg - Monitor BP trend Acute kidney injurym possibly on chronic kidney disease - improving - ANALOG CIRCUIT DESIGNER 1.40 --> 1.14 08/21/16. Repeat BMP and magnesium in the morning DVT prop ambulation Problem Qualifiers (1) Dementia with behavioral disturbance: Qualified Code: G30.1 - Late onset Alzheimer's disease with behavioral disturbance Shoaib Bullard MD Aug 22, 2016 17:56
[2016-08-22 18:00] VITALS: BP 144/70; PULSE 70; RESP 16; TEMP 97.9; O2SAT 98
[2016-08-22] MEDS: ATORVASTATIN 40 MG TAB PO SCH (21:20)
[2016-08-22] MEDS: DONEPEZIL HCL 5 MG TAB PO SCH (21:20)
--- NOTE | 2016-08-22 23:07 | EKG ---
Date Performed: 08/21/2016 Time Performed: 14:14:52 PTAGE: 85 years EKG: ELECTRONIC VENTRICULAR PACEMAKER ABNORMAL RHYTHM ECG PREVIOUS TRACING : 08/20/2016 16.38 DOCTOR: Misa Mustafa Interpretating Date/Time 08/22/2016 23:00:17
[2016-08-23] MEDS: ENOXAPARIN SODIUM 60 MG/0.6 ML SYRINGE SQ SCH ×3 (01:00→21:11)
[2016-08-23 06:00] VITALS: BP 156/70; PULSE 76; RESP 16; TEMP 97.8; O2SAT 93
[2016-08-23 08:24] LABS: INTERNATIONAL NORMALIZED RATIO 2.1 RATIO; PROTHROMBIN TIME - PATIENT 23.4 SEC (9.8-11.6)
[2016-08-23 08:48] LABS: BICARBONATE 26.9 MEQ/L (21.0-32.0); MAGNESIUM 2.3 MG/DL (1.5-2.5); POTASSIUM 4.1 MEQ/L (3.5-5.1)
[2016-08-23] MEDS: QUEtiapine FUMARATE 25 MG TAB PO SCH ×3 (09:31→17:57)
[2016-08-23] MEDS: SERTRALINE HCL 50 MG TAB PO SCH (09:31)
[2016-08-23] MEDS: MEMANTINE HCL 5 MG TAB PO SCH ×2 (09:31→21:10)
[2016-08-23] MEDS: ASPIRIN 81 MG CHEW TAB PO SCH (09:31)
[2016-08-23] MEDS: ISOSORBIDE MONONITRATE 60 MG TAB PO SCH (09:31)
[2016-08-23] MEDS: LISINOPRIL 5 MG TAB PO SCH (09:31)
[2016-08-23] MEDS: ATENOLOL 25 MG TAB PO SCH (09:31)
[2016-08-23] MEDS: ALUMINUM/MAGNESIUM/SIMETH 30 ML CUP PO PRN (09:32)
[2016-08-23] MEDS: ACETAMINOPHEN 325 MG TAB PO PRN ×2 (09:37→21:10)
--- NOTE | 2016-08-23 15:04 | HHI.PYPN ---
Subjective Remarks Patient seen in her room with medical student Paris, chart review, patient somewhat calm and cooperative today though she continues to isolate, she is compliant with medications. Her confusion continues also. For now continue treatment Review of Systems Except as stated in HPI: all other systems reviewed are Neg Objective Alert: Yes [place]: Person Mood: Anxious, Calm Affect: Restricted Memory Intact: Comment Hallucinations: Other (very poor eye) Delusions: Yes Delusion Type: Paranoid (mildly to vigilant) Suicidal: Ideation (denies) Homicidal: Ideation (denies) Insight/Judgement Poor Labs Test 08/23/16 06:38 Prothrombin Time 23.4 SEC Prothromb Time International 2.1 RATIO Ratio Sodium Level 141 MEQ/L Potassium Level 4.1 MEQ/L Chloride Level 107 MEQ/L Carbon Dioxide Level 26.9 MEQ/L Anion Gap 7 MEQ/L Blood Urea Nitrogen 18 MG/DL Creatinine 1.08 MG/DL Estimat Glomerular Filtration 48 ML/MIN Rate Random Glucose 81 MG/DL Calcium Level 9.0 MG/DL Magnesium Level 2.3 MG/DL Vitals/IOs Vital Signs Date Time Temp Pulse Resp B/P Pulse Ox O2 Delivery O2 Flow Rate FiO2 08/23/16 06:00 97.8 76 16 156/70 93 08/20/16 15:06 Room Air Intake and Output 08/22/16 08/22/16 08/23/16 08:00 16:00 00:00 Intake Total 480 ml 480 ml Balance 480 ml 480 ml Assessment & Plan Problem List: (1) Dementia with behavioral disturbance ICD Code: F03.91 Assessment & Plan Estimated LOS: days patient somewhat calmer today, compliant medications, continues confused and disoriented. Compliant medications Justification for Cont. Inpt. At this time patient with significant decompensated placed a lower level of care Discharge Planning To be determined Request HC Surrog/Guard Advoc?: Yes Problem Qualifiers (1) Dementia with behavioral disturbance: Qualified Code: G30.1 - Late onset Alzheimer's disease with behavioral disturbance Ruben De La Rosa MD Aug 23, 2016 15:04
--- NOTE | 2016-08-23 15:22 | HHI.PR ---
Addendum to Inpatient Note Additional Information Coumadin to be followed by pharmacy keep INR between 2.5-3.5. Discontinue Lovenox when INR is over 2.5. We will sign off. Reconsult as needed Shoaib Bullard MD Aug 23, 2016 15:22
[2016-08-23] MEDS: WARFARIN SOD 3 MG TAB PO SCH (16:38)
[2016-08-23 19:42] VITALS: BP 136/62; PULSE 69; RESP 16; TEMP 98.8; O2SAT 94
[2016-08-23] MEDS: DONEPEZIL HCL 5 MG TAB PO SCH (21:08)
[2016-08-23] MEDS: ATORVASTATIN 40 MG TAB PO SCH (21:10)
[2016-08-24 05:53] VITALS: BP 141/62; PULSE 66; RESP 18; TEMP 97.6; O2SAT 100
[2016-08-24 08:45] LABS: INTERNATIONAL NORMALIZED RATIO 2.4 RATIO; PROTHROMBIN TIME - PATIENT 28.1 SEC (9.8-11.6)
[2016-08-24] MEDS: SERTRALINE HCL 50 MG TAB PO SCH (09:00)
[2016-08-24] MEDS: MEMANTINE HCL 5 MG TAB PO SCH ×2 (10:10→21:49)
[2016-08-24] MEDS: ATENOLOL 25 MG TAB PO SCH (10:10)
[2016-08-24] MEDS: ISOSORBIDE MONONITRATE 60 MG TAB PO SCH (10:10)
[2016-08-24] MEDS: ASPIRIN 81 MG CHEW TAB PO SCH (10:10)
[2016-08-24] MEDS: LISINOPRIL 5 MG TAB PO SCH (10:10)
[2016-08-24] MEDS: ENOXAPARIN SODIUM 60 MG/0.6 ML SYRINGE SQ SCH ×2 (10:11→21:48)
[2016-08-24] MEDS: QUEtiapine FUMARATE 25 MG TAB PO SCH ×3 (10:11→18:17)
[2016-08-24] MEDS: ACETAMINOPHEN 325 MG TAB PO PRN ×2 (10:12→21:49)
--- NOTE | 2016-08-24 13:37 | HHI.PYPN ---
Subjective Remarks Patient seen in her room with medical student Paris, patient in bed napping, arousable calm the continue treatment the difficulty with with the language barrier. Though staff also states she has been calm cooperative and pleasant no behavioral issues have been noted. For now continue treatment Review of Systems Except as stated in HPI: all other systems reviewed are Neg Objective Alert: Yes [place]: Person Mood: Anxious, Calm Affect: Restricted Memory Intact: Comment Hallucinations: Other (very poor eye) Delusions: Yes Delusion Type: Paranoid (mildly to vigilant) Suicidal: Ideation (denies) Homicidal: Ideation (denies) Insight/Judgement Poor Labs Test 08/24/16 07:20 Prothrombin Time 28.1 SEC Prothromb Time International 2.4 RATIO Ratio Vitals/IOs Vital Signs Date Time Temp Pulse Resp B/P Pulse Ox O2 Delivery O2 Flow Rate FiO2 08/24/16 05:53 97.6 66 18 141/62 100 08/20/16 15:06 Room Air Intake and Output 08/23/16 08/23/16 08/24/16 08:00 16:00 00:00 Intake Total 0 ml 480 ml Balance 0 ml 480 ml Assessment & Plan Problem List: (1) Dementia with behavioral disturbance ICD Code: F03.91 Assessment & Plan Estimated LOS: days patient remains confused demented, but no behavioral problems. Continues to isolate somewhat with a sad mood. For now continue treatment Justification for Cont. Inpt. At this time patient will decompensate if placed in the lower level of care Discharge Planning To be determined Request HC Surrog/Guard Advoc?: Yes Problem Qualifiers (1) Dementia with behavioral disturbance: Qualified Code: G30.1 - Late onset Alzheimer's disease with behavioral disturbance Ruben De La Rosa MD Aug 24, 2016 13:37
[2016-08-24] MEDS: WARFARIN SOD 3 MG TAB PO SCH (15:48)
--- NOTE | 2016-08-24 15:49 | HHI.PR ---
Subjective Remarks Follow-up AVR. Reconsulted because patient was complaining of abdominal pain. With the use of [place] spanish interpreter/translator, patient denies abdominal pain , nausea, UTI symptoms, constipation and diarrhea. She reports that she had bypass surgery. No chest pain. Discussed with RN, will sign off since patient is stable to continue Lovenox until INR is 2.5 and Coumadin to keep INR between 2.5-3.5 Objective Vitals Vital Signs Date Time Temp Pulse Resp B/P Pulse Ox O2 Delivery O2 Flow Rate FiO2 08/24/16 05:53 97.6 66 18 141/62 100 08/23/16 19:42 98.8 69 16 136/62 94 I/O 08/23/16 08/23/16 08/23/16 08/24/16 08/24/16 08/24/16 07:00 15:00 23:00 07:00 15:00 23:00 Intake Total 0 ml 480 ml 0 ml 240 ml Balance 0 ml 480 ml 0 ml 240 ml Intake Oral 0 ml 480 ml 0 ml 240 ml # Voids 1 1 2 1 2 Result Diagram: 08/21/16 0654 08/23/16 0638 Objective Remarks GENERAL: This is a well-nourished, well-developed patient, in no apparent distress. SKIN: Bruising in the abdominal wall secondary to Lovenox. Mid sternal scar from previous CABG. HEAD: Atraumatic. Normocephalic. No temporal or scalp tenderness. EYES: Pupils equal round and reactive. Extraocular motions intact. No scleral icterus. No injection or drainage. ENT: Nose without bleeding. Throat without erythema. Uvula midline. Airway patent. NECK: Trachea midline. No JVD or lymphadenopathy. Supple, nontender, no meningeal signs. CARDIOVASCULAR: Regular rate and rhythm, mechanical click heard,no gallops, or rubs. RESPIRATORY: Clear to auscultation. Breath sounds equal bilaterally. No wheezes , rales, or rhonchi. GASTROINTESTINAL: Abdomen soft, non-tender, nondistended. No guarding. MUSCULOSKELETAL: Extremities without clubbing, cyanosis, or edema. No joint tenderness, effusion, or edema noted. No calf tenderness. Negative Homans sign bilaterally. NEUROLOGICAL: Awake and alert. Motor and sensory grossly within normal limits. Five out of 5 muscle strength in all muscle groups. Normal speech. 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 She is now admitted to inpatient psychiatry unit for further evaluation. Consulted for medical management. Dementia with aggressive behavior - managed by psychiatry team CAD - recent negative stress test as per daughter - Continue on Imdur, ASA 81mg CABG in the past, AVR mechanical valve - Continue Coumadin, monitor INR - Keep INR 2.5-3.5, pharmacy to dose. Continue Lovenox 50 mg every 12 hours to bridge until INR therapeutic. INR 2.4 today HTN - continue home meds atenolol 12.5 daily, Imdur 60mg daily, lisinopril 2.5mg - Monitor BP trend Acute kidney injury possibly on chronic kidney disease - improving - METHODOLOGIST 1.40 --> 1.14 08/21/16. Repeat BMP and magnesium in the morning Abdominal wall bruising secondary to Lovenox. Denies abdominal pain and tenderness. Monitor. DVT prop with anticoagulation and ambulation Discharge Planning Patient is medically stable. We'll sign off. Reconsult as needed Problem Qualifiers (1) Dementia with behavioral disturbance: Qualified Code: G30.1 - Late onset Alzheimer's disease with behavioral disturbance Shoaib Bullard MD Aug 24, 2016 15:49
[2016-08-24 18:04] VITALS: BP 121/64; PULSE 63; RESP 18; TEMP 98.3; O2SAT 100
[2016-08-24] MEDS: DONEPEZIL HCL 5 MG TAB PO SCH (21:49)
[2016-08-24] MEDS: ATORVASTATIN 40 MG TAB PO SCH (21:49)
[2016-08-25 06:00] VITALS: BP 163/79; PULSE 81; RESP 16; TEMP 97.2; O2SAT 94
[2016-08-25 08:06] LABS: INTERNATIONAL NORMALIZED RATIO 2.9 RATIO; PROTHROMBIN TIME - PATIENT 33.5 SEC (9.8-11.6)
[2016-08-25] MEDS: SERTRALINE HCL 50 MG TAB PO SCH (09:00)
[2016-08-25] MEDS: QUEtiapine FUMARATE 25 MG TAB PO SCH ×3 (09:05→17:41)
[2016-08-25] MEDS: MEMANTINE HCL 5 MG TAB PO SCH ×2 (09:05→22:13)
[2016-08-25] MEDS: ASPIRIN 81 MG CHEW TAB PO SCH (09:05)
[2016-08-25] MEDS: ATENOLOL 25 MG TAB PO SCH (09:06)
[2016-08-25] MEDS: ENOXAPARIN SODIUM 60 MG/0.6 ML SYRINGE SQ SCH (09:08)
[2016-08-25] MEDS: LISINOPRIL 5 MG TAB PO SCH (09:08)
[2016-08-25] MEDS: ISOSORBIDE MONONITRATE 60 MG TAB PO SCH (09:13)
[2016-08-25] MEDS: WARFARIN SOD 3 MG TAB PO SCH (16:00)
[2016-08-25] MEDS: ACETAMINOPHEN 325 MG TAB PO PRN (17:16)
--- NOTE | 2016-08-25 17:28 | HHI.PYPN ---
Subjective Remarks Pt seen and discussed with staff. RN interpreted for pt. Pt reports that mood is okay. She denies medication side effects. No agitation or aggression. She c/ o of abdominal pain and extensive bruising is noted on abdomen (receiving lovenox injections). Pt reports that she had two episodes of diarrhea today. She was seen yesterday by hospitalist for abdominal pain.( note reviewed). Objective Alert: Yes [place]: Person Mood: Calm Affect: Restricted Memory Intact: Comment Hallucinations: Other (very poor eye) Delusions: Yes Delusion Type: Paranoid (mildly to vigilant) Suicidal: Ideation (denies) Homicidal: Ideation (denies) Insight/Judgement limited Remarks Abdomen: extensive bruising noted on lower abdomen, no TTP, no distension. no rebound/guard Labs Test 08/25/16 07:36 Prothrombin Time 33.5 SEC Prothromb Time International 2.9 RATIO Ratio Vitals/IOs Vital Signs Date Time Temp Pulse Resp B/P Pulse Ox O2 Delivery O2 Flow Rate FiO2 08/25/16 06:00 97.2 81 16 163/79 94 Intake and Output 08/24/16 08/24/16 08/25/16 08:00 16:00 00:00 Intake Total 0 ml 240 ml 120 ml Balance 0 ml 240 ml 120 ml Assessment & Plan Problem List: (1) Dementia with behavioral disturbance ICD Code: F03.91 Assessment & Plan Continue current tx plan. Will order stool sample and check platelets. Monitor closely. Estimated LOS: days Justification for Cont. Inpt. complicating condition. Request HC Surrog/Guard Advoc?: Yes Problem Qualifiers (1) Dementia with behavioral disturbance: Qualified Code: G30.1 - Late onset Alzheimer's disease with behavioral disturbance Nidia Barr MD Aug 25, 2016 17:28
[2016-08-25 18:45] LABS: MEAN CELL VOLUME 94.5 FL (80.0-100.0); MEAN CORPUSCULAR HEMOGLOBIN 31.6 PG (27.0-34.0); MEAN CORPUSCULAR HGB CONC 33.4 % (32.0-36.0); PLATELET COUNT 183 TH/MM3 (150-450); RED BLOOD COUNT 3.28 MIL/MM3 (4.00-5.30); RED CELL DISTRIBUTION WIDTH 14.9 % (11.6-17.2); REVIEW FLAG FINAL; WHITE BLOOD COUNT 7.3 TH/MM3 (4.0-11.0)
[2016-08-25] MEDS: ATORVASTATIN 40 MG TAB PO SCH (22:13)
[2016-08-25] MEDS: DONEPEZIL HCL 5 MG TAB PO SCH (22:13)
[2016-08-26 05:08] VITALS: BP 112/66; PULSE 80; RESP 16; TEMP 98.2; O2SAT 99
[2016-08-26] MEDS: ALUMINUM/MAGNESIUM/SIMETH 30 ML CUP PO PRN (05:52)
[2016-08-26 07:54] LABS: INTERNATIONAL NORMALIZED RATIO 2.9 RATIO; PROTHROMBIN TIME - PATIENT 33.9 SEC (9.8-11.6)
[2016-08-26] MEDS: ATENOLOL 25 MG TAB PO SCH (08:49)
[2016-08-26] MEDS: MEMANTINE HCL 5 MG TAB PO SCH ×2 (08:50→20:58)
[2016-08-26] MEDS: QUEtiapine FUMARATE 25 MG TAB PO SCH ×3 (08:50→16:45)
[2016-08-26] MEDS: LISINOPRIL 5 MG TAB PO SCH (08:51)
[2016-08-26] MEDS: ISOSORBIDE MONONITRATE 60 MG TAB PO SCH (08:51)
[2016-08-26] MEDS: ASPIRIN 81 MG CHEW TAB PO SCH (08:52)
[2016-08-26] MEDS: ACETAMINOPHEN 325 MG TAB PO PRN ×2 (09:00→14:04)
[2016-08-26] MEDS: SERTRALINE HCL 50 MG TAB PO SCH (09:15)
[2016-08-26 12:05] VITALS: BP 117/56; PULSE 71; RESP 20
[2016-08-26 13:05] VITALS: BP 97/55; PULSE 81; RESP 20
[2016-08-26] MEDS: WARFARIN SOD 3 MG TAB PO SCH (16:45)
[2016-08-26 17:05] VITALS: BP 90/60; PULSE 62; RESP 20
--- NOTE | 2016-08-26 18:31 | HHI.PR ---
Subjective Remarks We were reconsulted for anemia and abdominal pain Per RN, patient is therapeutic today, fall. Also complaining of abdominal pain which is chronic. History done by a services manager via Status. Patient not very cooperative. She denies abdominal pain, no nausea or vomiting. No diarrhea. No bleeding. Objective Vitals Vital Signs Date Time Temp Pulse Resp B/P Pulse Ox O2 Delivery O2 Flow Rate FiO2 08/26/16 17:05 62 20 90/60 08/26/16 13:05 81 20 97/55 08/26/16 12:05 71 20 117/56 08/26/16 05:08 98.2 80 16 112/66 99 I/O 08/25/16 08/25/16 08/25/16 08/26/16 08/26/16 08/26/16 07:00 15:00 23:00 07:00 15:00 23:00 Intake Total 0 ml 360 ml 240 ml 0 ml 240 ml 840 ml Balance 0 ml 360 ml 240 ml 0 ml 240 ml 840 ml Intake Oral 0 ml 360 ml 240 ml 0 ml 240 ml 840 ml # Voids 1 1 1 Result Diagram: 08/25/16 1833 08/23/16 0638 Objective Remarks GENERAL: Not in distress. SKIN: Bruising in the abdominal wall secondary to Lovenox. Mid sternal scar from previous CABG. HEAD: Atraumatic. Normocephalic. No temporal or scalp tenderness. CARDIOVASCULAR: Regular rate and rhythm, mechanical click heard,no gallops, or rubs. RESPIRATORY: Clear to auscultation. Breath sounds equal bilaterally. No wheezes , rales, or rhonchi. GASTROINTESTINAL: Abdomen soft, non-tender, nondistended. MUSCULOSKELETAL: Extremities without clubbing, cyanosis, or edema. NEUROLOGICAL: Awake and alert. Moves extremities. Sleepy but easily arousable Procedures none A/P Problem List: (1) Dementia with behavioral disturbance ICD Code: F03.91 Status: Acute (2) Hx of CABG ICD Code: Z95.1 Status: Acute (3) HTN (hypertension) ICD Code: I10 Status: Acute (4) CAD (coronary artery disease) ICD Code: I25.10 Status: Acute Assessment and Plan Patient is an 85 year old female with primary medical history of CAD, HTN, 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 She is now admitted to inpatient psychiatry unit for further evaluation. Consulted for medical management. Dementia with aggressive behavior - managed by psychiatry team CAD - recent negative stress test as per daughter - Continue on Imdur, ASA 81mg CABG in the past, AVR mechanical valve - Continue Coumadin, monitor INR, INR therapeutic. HTN - continue home meds atenolol 12.5 daily, Imdur 60mg daily, lisinopril 2.5mg - Monitor BP trend Acute kidney injury possibly on chronic kidney disease - improving - TOWEL HEMMER 1.40 --> 1.14 08/21/16. Recheck BMP tomorrow. Abdominal pain likely secondary to Abdominal wall bruising secondary to Lovenox - per patient, no abdominal pain, check abdominal x-ray, check lipase and LFTs tomorrow. Check BMP Anemia-denies blood work, check iron panel, folic acid and CBC tomorrow. DVT prop with anticoagulation and ambulation Problem Qualifiers (1) Dementia with behavioral disturbance: Qualified Code: G30.1 - Late onset Alzheimer's disease with behavioral disturbance Nas Marley MD Aug 26, 2016 18:31
--- NOTE | 2016-08-26 18:58 | HHI.PYPN ---
Subjective Remarks Pt seen and discussed with staff. Pt had a witnessed fall(stumbled) Staff were able to reach pt in time to assist to floor and no injury was sustained. Staff report that pt is eating very little and pt states that she does not have an appetite. She has been isolative to room. No medication side effects. Objective Alert: Yes [place]: Person Mood: Calm Affect: Restricted Memory Intact: Comment (impaired) Hallucinations: Other (very poor eye) Delusions: Yes Delusion Type: Paranoid (mildly to vigilant) Suicidal: Ideation (denies) Homicidal: Ideation (denies) Insight/Judgement poor Labs Test 08/26/16 06:20 Prothrombin Time 33.9 SEC Prothromb Time International 2.9 RATIO Ratio Vitals/IOs Vital Signs Date Time Temp Pulse Resp B/P Pulse Ox O2 Delivery O2 Flow Rate FiO2 08/26/16 17:05 62 20 90/60 08/26/16 05:08 98.2 99 Intake and Output 08/25/16 08/25/16 08/26/16 08:00 16:00 00:00 Intake Total 0 ml 360 ml 240 ml Balance 0 ml 360 ml 240 ml Assessment & Plan Problem List: (1) Dementia with behavioral disturbance ICD Code: F03.91 Assessment & Plan Estimated LOS: days Justification for Cont. Inpt. impairments in self care Request HC Surrog/Guard Advoc?: Yes Problem Qualifiers (1) Dementia with behavioral disturbance: Qualified Code: G30.1 - Late onset Alzheimer's disease with behavioral disturbance Nidia Barr MD Aug 26, 2016 18:58
[2016-08-26 20:31] VITALS: BP 116/55; PULSE 84; RESP 19; TEMP 97.8; O2SAT 98
[2016-08-26] MEDS: ATORVASTATIN 40 MG TAB PO SCH (20:58)
[2016-08-26] MEDS: DONEPEZIL HCL 5 MG TAB PO SCH (20:59)
--- NOTE | 2016-08-27 01:03 | RADRPT ---
EXAM DATE/TIME: 08/27/2016 00:48 [facility] COMPARISON: No previous studies available for comparison. INDICATIONS : Abdominal pain. MEDICAL HISTORY : Unobtainable. SURGICAL HISTORY : Unobtainable. ENCOUNTER: Initial ACUITY: 1 day PAIN SCORE: Non-responsive. LOCATION: abdomen, all quadrants. FINDINGS: Supine view of the abdomen was performed. Bowel anastomosis sutures are seen in the right lateral ab domen. Clips are seen in the right inguinal region. There is a pacemaker in place and sternal wires p resent. The abdominal bowel gas pattern is normal. No abnormal masses, calcifications, or organomega ly is seen. Degenerative changes seen in the lower lumbar spine. CONCLUSION: No acute disease. Ruben García MD on August 27, 2016 at 1:01 Board Certified Radiologist. This report was verified electronically.
[2016-08-27 05:36] VITALS: BP 114/63; PULSE 66; RESP 16; TEMP 97.9; O2SAT 99
[2016-08-27 07:14] LABS: AUTOMATED NEUTROPHIL # 6.1 TH/MM3 (1.8-7.7); BASOPHIL % 0.2 % (0.0-2.0); EOSINOPHIL # 0.1 TH/MM3 (0-0.4); EOSINOPHIL % 0.6 % (0.0-4.0); HEMATOCRIT 25.4 % (35.0-46.0); HEMO FLAGS DIFF FINAL; LYMPHOCYTE # 1.7 TH/MM3 (1.0-4.8); MEAN CELL VOLUME 93.4 FL (80.0-100.0); MEAN CORPUSCULAR HEMOGLOBIN 33.2 PG (27.0-34.0); MEAN CORPUSCULAR HGB CONC 35.6 % (32.0-36.0); MONO % 10.2 % (0.0-8.0); PLATELET COUNT 172 TH/MM3 (150-450); RED BLOOD COUNT 2.72 MIL/MM3 (4.00-5.30); RED CELL DISTRIBUTION WIDTH 15.1 % (11.6-17.2); WHITE BLOOD COUNT 8.7 TH/MM3 (4.0-11.0)
[2016-08-27 07:18] LABS: INTERNATIONAL NORMALIZED RATIO 3.7 RATIO; PROTHROMBIN TIME - PATIENT 43.3 SEC (9.8-11.6)
[2016-08-27 07:39] LABS: ALKALINE PHOSPHATASE 114 U/L (45-117); ALT (GPT) 27 U/L (10-53); ANION GAP 8 MEQ/L (5-15); AST (GOT) 36 U/L (15-37); BICARBONATE 26.3 MEQ/L (21.0-32.0); BLOOD UREA NITROGEN 44 MG/DL (7-18); CHLORIDE 107 MEQ/L (98-107); FERRITIN 39 NG/ML (8-252); GLOMERULAR FILTRATION RATE 19 ML/MIN (>89); INDIRECT BILIRUBIN 0.3 MG/DL (0.0-0.8); POTASSIUM 4.3 MEQ/L (3.5-5.1); SODIUM (NA) 141 MEQ/L (136-145); TOTAL BILIRUBIN ADULT 0.4 MG/DL (0.2-1.0); TRANSFERRIN IRON PROFILE 226 MG/DL (200-360)
[2016-08-27] MEDS: ATENOLOL 25 MG TAB PO SCH (09:00)
[2016-08-27] MEDS: LISINOPRIL 5 MG TAB PO SCH (09:00)
[2016-08-27] MEDS: ASPIRIN 81 MG CHEW TAB PO SCH (09:00)
[2016-08-27] MEDS: MEMANTINE HCL 5 MG TAB PO SCH (09:00)
[2016-08-27] MEDS: QUEtiapine FUMARATE 25 MG TAB PO SCH (09:00)
[2016-08-27] MEDS: ISOSORBIDE MONONITRATE 60 MG TAB PO SCH (09:00)
[2016-08-27] MEDS: SERTRALINE HCL 50 MG TAB PO SCH (09:00)
[2016-08-27 09:21] LABS: BLOOD GAS BASE EXCESS -2.7 mmol/L (-2-2); BLOOD GAS CARBOXYHEMOGLOBIN 1.6 % (0-4); BLOOD GAS HCO3 19 mmol/L (22-26); BLOOD GAS O2 HGB SATURATION 98 % (90-100); BLOOD GAS OXYGEN CONTENT 13.6 Vol % (12.0-20.0); BLOOD GAS PCO2 21 mmHg (38-42); BLOOD GAS PO2 396 mmHg (61-120); BLOOD GAS TOTAL HGB 9.2 G/DL (12.0-16.0); TEMP CORR TO 98.6
[2016-08-27 09:22] LABS: CRITICAL VALUE YES; DRAW SITE LT FEMORAL; FIO2 100 %; NUMBER OF ARTERIAL PUNCTURES 1; OXYGEN DEVICE NRB; STAT YES
--- NOTE | 2016-08-27 09:52 | HHI.PR ---
Subjective Remarks F/U AVR. Nurses called STAT for Halicat for patient. As per RN, patient is lethargic, minimally responsive, decreased O2 sat, had a fall last night. Patient has mechanical valve previous CABG with AVR on Coumadin. INR today is 3.7, H&H 9.0/25.4. Patient was seen. On Ventimask. Responsive but appears to be more lethargic than previous visits. [employer]language interpreter service was used to communicate with patient. Patient states she doesn't have any pain nor confirmed that she had a fall last night. Denies any abdominal pain, nausea, vomiting or diarrhea, bleeding. Denies shortness of breath/dyspnea. Breathing was shallow, blood pressure is in the 110s to 120s, pulse is thready, cold and clammy. On further examination abdomen was tender to palpate left upper quadrant. Noted to have hematoma mid abdominal area where she had Lovenox shots. Spoke with RN, stat labs, CT of the head, CT of the abdomen, chest x- ray to be done. We will mtransfer patient to intensive care for closer monitoring. Case discussed with CCM Patient was visited yesterday by Dr. Marley, reconsult it for anemia and abdominal pain. She reports reported to have a fall but denies abdominal pain. [employer]language interpreter was used. Denies any abdominal pain, nausea, vomiting or diarrhea, bleeding. Objective Vitals Vital Signs Date Time Temp Pulse Resp B/P Pulse Ox O2 Delivery O2 Flow Rate FiO2 08/27/16 05:36 97.9 66 16 114/63 99 08/26/16 20:31 97.8 84 19 116/55 98 08/26/16 17:05 62 20 90/60 08/26/16 13:05 81 20 97/55 08/26/16 12:05 71 20 117/56 I/O 08/26/16 08/26/16 08/26/16 08/27/16 08/27/16 08/27/16 07:00 15:00 23:00 07:00 15:00 23:00 Intake Total 0 ml 240 ml 840 ml 0 ml Balance 0 ml 240 ml 840 ml 0 ml Intake Oral 0 ml 240 ml 840 ml 0 ml # Voids 1 1 # Bowel Movements 0 Result Diagram: 08/27/16 0652 08/27/16 0625 Imaging Last Impressions Abdomen X-Ray 08/26/16 0000 Signed Impressions: Service Date/Time: Saturday, August 27, 2016 00:48 - CONCLUSION: No acute disease. Ruben García MD Objective Remarks GENERAL: [place]ralt[place] speaking, lethargic, ill appearing. SKIN: No rash, cold and clammy HEENT: NCAT WILBERTO NECK : No JVD no bruit CARDIOVASCULAR: Regular rate and rhythm, (+) clicking, pulse thready RESPIRATORY: Clear to auscultation. Decreased Breath sounds equal bilaterally. No wheezes, rales, or rhonchi. Rapid breathing GASTROINTESTINAL: Abdomen soft, tender to light palpation LLQ, Hematoma palpable , nondistended. Normal active bowel sounds MUSCULOSKELETAL: Extremities without clubbing, cyanosis, or edema. NEURO: Lethargic. Confused. Moves all ext x4 very weakly. 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 She is now admitted to inpatient psychiatry unit for further evaluation. Consulted for medical management. S/P fall yesterday. Appears to be lethargic today as per RN. Also abdominal tenderness was noted. HALICAT was called for the patient. Patient is on Coumadin secondary to AVR mechanical valve. INR today 3.7. Anemia, Possible GI bleed, hematoma felt left lower quadrant, tenderness to palpation. - stat CT of the abdomen and pelvis without contrast - Follow-up results - Check stat H&H. Pantoprazole IV - Transfer patient to intensive care. Encephalopathy - lethargy - Stat CMP, CT of the head without contrast - Neurochecks, sz precautions - Continue O2 use, monitor saturation ABGs. - STAT Chest x-ray, follow-up results Acute kidney injury, on chronic kidney disease - worsened renal function BUN 44/ creatinine 2.39 - IV fluids as ordered. CAD - recent negative stress test as per daughter -Hold on Imdur, ASA 81mg - Monitor BP trend CABG in the past, AVR mechanical valve - Hold Coumadin, INR 3.7 - Transfuse 2 unit FFP - Possible GI bleed HTN - hold atenolol 12.5 daily, Imdur 60mg daily, lisinopril 2.5mg - Monitor BP trend DVT prop Coumadin, supratherapeutic INR today will hold . SCD Discussed plan with nursing, and grouter helper CRITICAL CARE NOTE: With evaluation of the patient, labs, EKG, receipt of radiologic studies, administration of medications, reevaluation of the patient and discussion of the case with the admitting physician and grouter helper, the total critical care time was [35] minutes. Written by Emanuel Dillard, acting as scribe for Dr. Bullard on 08/27/16 at 10: 25. The documentation accurately reflects the work performed [id number] by me on at 13:09. Problem Qualifiers (1) Dementia with behavioral disturbance: Qualified Code: G30.1 - Late onset Alzheimer's disease with behavioral disturbance Emanuel Boswell Aug 27, 2016 09:52 Shoaib Bullard MD Aug 27, 2016 13:10
[2016-08-27] MEDS ORDERED: PROTAMINE SULFATE 50 MG/5 ML VIAL IV PUSH ONE (10:30)
--- NOTE | 2016-08-27 10:33 | RADRPT ---
EXAM DATE/TIME: 08/27/2016 09:50 [facility] COMPARISON: No previous studies available for comparison. INDICATIONS: Dyspnea. MEDICAL HISTORY: Unobtainable. SURGICAL HISTORY: Unobtainable. ENCOUNTER: Initial ACUITY: 1 day PAIN SCORE: Non-responsive. LOCATION: Bilateral chest FINDINGS: Pacemaker is in good position. Lungs are clear, heart is minimally enlarged, pulmonary vascularity i s normal. Portion of bony skeleton visualized unremarkable. CONCLUSION: 1. Mild compensated cardiomegaly. 2. Pacer. 3. Otherwise negative. Levi Delaney MD FACR on August 27, 2016 at 10:08 Board Certified Radiologist. This report was verified electronically.
--- NOTE | 2016-08-27 13:51 | HHI.DS ---
Psychiatry Discharge Summary Inpatient Psychiatric care?: Yes Advance Directive: No Reason Not Provided: DECLINED Mental Health AdvanceDirective: No Health Care Proxy: Yes Admission Admission Date Aug 20, 2016 at 22:53 Admission Diagnosis: (1) Dementia with behavioral disturbance ICD Code: F03.[address] De La Rosa's H&P: Patient is an 85-year-old Uzbek female Turkmen speaking was initially brought to the ED by family and Dillon act in the ED by Dr. Manning dated 20 August at 1600 hrs. stating dementia with behavioral disturbances aggressive towards others threatening to leave the country to an area or no one is available to care for her not eating appropriately despite adequate food availability. Patient seen screened in ED and toxicology negative urinalysis negative. Patient seen in her room with nurse Christi, medical student [place], with an worship director services through the computer. Patient is somewhat nervous and anxious responding to questions through the monitor. She is disoriented in all 4 spheres though she denies voices or visions stating she lives with her and no one else. Stating that her father is alive and 60 years old. She does denies suicidality homicidality, denies alcohol or drugs , denies any past psychiatric history. She is otherwise continued to be guarded and vigilant. She did deny any physical and/or sexual abuse. She stated she had 2 children. This time the patient does meet criteria for involuntary psychiatric hospitalization under the Dillon act I'll do first opinion requests second opinion I feel she does not have capacity thus I'll ask for healthcare surrogate and a guardian advocate. We do have a hospitalist consult to elicits patient is a history of cardiac issues and has a pacemaker at the present time that he is functioning. We'll call the patient's daughter she'll attempt to meet with us today at about 11 AM she did state to the nurse that she has power of divorce attorney. We will meet with her to further discuss and get details about this lady and discuss possible placement and behaviors and medication On my examination today: Patient seen and examined with nurse Cerda acting as worship director. Chart reviewed. On my examination today the patient reports that she is in the hospital because she came to get her who had been hospitalized here for 5 days. She says that when she came to get him "I had to stay because I wasn't feeling good." She says that she has a history of cardiovascular disease. She is disoriented and presently calm although apparently she was agitated at home. She denies any auditory hallucinations but does endorse visual hallucinations saying that she ignores them because she doesn't like to dwell on the negative. She denies any suicidal or homicidal ideation noting that she is a Spiritism. Psychiatric interview is limited because of her degree of cognitive impairment. I am unable to obtain any past psychiatric, family, chemical dependency or social history from this patient due to her cognitive impairment. She is able to tell me that she is originally in [place] and in fact believes that we are still there now. Tobacco Use In Past 30 Days: No Tobacco Past 30 Days Alcohol Use: Never Hospital Course On 08/27 staff and noted patient's mental status had deteriorated she responsive only initially to physical stimulus the rest she was tremulous with altered mental status. I have a cat was called. He was determined patient should be transferred to the medical service for further care and attention also noted that there appeared to be a fairly large hematoma noted on the left side of her abdomen. Thus well patient's dementia has persisted. This also mental status needs to be further investigated on the medical side. Thus patient was discharged HPC admitted to [facility] medical services for further care and attention Results Blood Pressure 114 / 63 Vital Signs Date Time Temp Pulse Resp B/P Pulse Ox O2 Delivery O2 Flow Rate FiO2 08/27/16 05:36 97.9 66 16 114/63 99 Laboratory Tests Test 08/25/16 08/25/16 08/26/16 08/27/16 07:36 18:33 06:20 06:25 Prothrombin Time 33.5 SEC 33.9 SEC 43.3 SEC (9.8-11.6) (9.8-11.6) (9.8-11.6) Red Blood Count 3.28 MIL/MM3 (4.00-5.30) Hemoglobin 10.4 GM/DL (11.6-15.3) Hematocrit 31.0 % (35.0-46.0) Blood Urea Nitrogen 44 MG/DL (7-18) Creatinine 2.39 MG/DL (0.50-1.00) Estimat Glomerular Filtration 19 ML/MIN (>89) Rate Iron Level 37 MCG/DL (50-170) Percent Iron Saturation 11.7 % (20-50) Albumin 3.3 GM/DL (3.4-5.0) Test 08/27/16 08/27/16 06:52 09:15 Red Blood Count 2.72 MIL/MM3 (4.00-5.30) Hemoglobin 9.0 GM/DL (11.6-15.3) Hematocrit 25.4 % (35.0-46.0) Monocytes (%) (Auto) 10.2 % (0.0-8.0) Blood Gas HCO3 19 mmol/L (22-26) Blood Gas Base Excess -2.7 mmol/L (-2-2) Arterial Blood pH 7.57 (7.380-7.420) Arterial Blood Partial 21 mmHg (38-42) Pressure CO2 Arterial Blood Partial 396 mmHg Pressure O2 (61-120) Blood Gas Hemoglobin 9.2 G/DL (12.0-16.0) Summary of Procedures See [facility] Assessment Imaging Last Impressions Abdomen X-Ray 08/26/16 0000 Signed Impressions: Service Date/Time: Saturday, August 27, 2016 00:48 - CONCLUSION: No acute disease. Ruben García MD Pending results at discharge: No Medications # of Antipsychotic meds at D/C: 1 Approp Antipsych med options 1 - Minimum of three failed multiple trials of monotherapy. 2 - Documented plan to taper to monotherapy due to previous use of multiple meds OR cross-taper in progress at D/C. 3 - Documentation of augmentation of Clozapine. 4 - Justification other than those listed in allowable values 1-3, document here : Discharge Discharge Date: Aug 27, 2016 Discharge Diagnosis: (1) Dementia with behavioral disturbance Diagnosis: Principal ICD Code: F03.91 Mental Status Exam at Disch Patient stuporous responding vaguely to questioning after further resuscitation efforts by halicat team, unable to do further mental status assessment at the time of discharge Pt Condition on Discharge: Deteriorating Discharge Disposition: Disch to Another Hospital Discharge Instructions Diet Instructions: As Tolerated, No Restrictions Activities you can perform: Weight Bearing as Jeniffer Scheduled Appointment: transfer [facility] inpatient medical services Discharge Time > 30 minutes Discharge/Advance Care Plan Health Problems: (1) Dementia with behavioral disturbance Goals to promote your health * To prevent worsening of your condition and complications * To maintain your health at the optimal level Directions to meet your goals Take your medications as prescribed Follow your dietary instruction Follow activity as directed Keep your appointments as scheduled Take your immunizations and boosters as scheduled If your symptoms worsen call your PCP, if no PCP go to Urgent Care Center or Emergency Room For 28/01 questions related to your inpatient stay or results of tests pending at discharge, please contact Dr. Ruben De La Rosa at Smoking is Dangerous to Your Health. Avoid second hand smoking Problem Qualifiers (1) Dementia with behavioral disturbance: Qualified Code: G30.1 - Late onset Alzheimer's disease with behavioral disturbance Ruben De La Rosa MD Aug 27, 2016 13:51
--- NOTE | 2016-08-27 14:16 | EKG ---
Date Performed: 08/27/2016 Time Performed: 09:23:14 PTAGE: 85 years EKG: ELECTRONIC VENTRICULAR PACEMAKER ABNORMAL RHYTHM ECG NO PREVIOUS TRACING DOCTOR: Sage Ewing Interpretating Date/Time 08/27/2016 14:13:04
== END 2016-08-27 09:56 | disposition short-term general hospital (02) | DRG 56 ==
LOC: NEPA 15:05 → NEDA 22:53 → H250 08-21 00:30
PROVIDERS: ADMIT Psychiatry & Neurology Psychiatry; ATTEND Psychiatry & Neurology Psychiatry
DX: G30.1 Alzheimer's disease with late onset (principal); G93.40 Encephalopathy, unspecified; N17.9 Acute kidney failure, unspecified; F02.81 Dementia in other diseases classified elsewhere, unspecified severity, with behavioral disturbance; Z95.1 Presence of aortocoronary bypass graft; Z95.0 Presence of cardiac pacemaker; E78.5 Hyperlipidemia, unspecified; I25.10 Atherosclerotic heart disease of native coronary artery without angina pectoris; I12.9 Hypertensive chronic kidney disease with stage 1 through stage 4 chronic kidney disease, or unspecified chronic kidney disease; N18.9 Chronic kidney disease, unspecified; Z95.2 Presence of prosthetic heart valve; Z86.010 Personal history of colon polyps; Z79.01 Long term (current) use of anticoagulants; S30.1XXA Contusion of abdominal wall, initial encounter; W19.XXXA Unspecified fall, initial encounter; Y93.9 Activity, unspecified; Y92.239 Unspecified place in hospital as the place of occurrence of the external cause; R79.1 Abnormal coagulation profile
CPT/HCPCS: 36600; 71010; 74000; 80048; 80053; 80061; 80076; 80307; 81001; 82728; 82805; 83036; 83540; 83550; 83690; 83735; 85025; 85027; 85610; 93005; J1650

== ENCOUNTER 2016-08-27 10:03 | Inpatient (IN) | payer OTHER, MEDICARE ==
[~2016-08-27] VITALS: Ht 157.5 cm; Wt 49.4 kg
[2016-08-27] VITALS (10 sets, daily range): BP systolic 96–127; BP diastolic 49–58; PULSE 68–88; RESP 18–42; TEMP 98.6–100; O2SAT 97–100
[~2016-08-27 10:03] MED LIST: ASPI81CH CHEW; ATEN25TA PO; ATOR40TA16 PO; COUM5TAB PO; DONE10TA7 PO; ISOS60TA PO; LISI2.5T3 PO; NAME10TA PO; QUET1TAB7 PO; SERT25TA83 PO; WARF-58 PO
[2016-08-27] MEDS ORDERED: GLUCAGON 1 MG/ML VIAL OTHER PRN (10:30)
[2016-08-27] MEDS ORDERED: RESP: ALBUTEROL 2.5 MG/IPRATROPIUM 0.5 MG NEB (PRN) INH (10:30)
[2016-08-27] MEDS ORDERED: SENNOSIDES 8.6 MG TAB PO PRN (10:30)
[2016-08-27] MEDS ORDERED: CHLORHEXIDINE GLUCONATE 2 % 1 PACK (2 CLOTHS) TOP PRN (10:30)
[2016-08-27] MEDS ORDERED: ONDANSETRON HCL 4 MG/2 ML VIAL IV PRN (10:30)
[2016-08-27] MEDS ORDERED: SODIUM CHLORIDE 0.9% FLUSH 5 ML FLUSH IV FLUSH PRN (10:30)
[2016-08-27] MEDS ORDERED: DEXTROSE 50% IN WATER 50 ML VIAL(D50) IV PUSH PRN (10:30)
[2016-08-27] MEDS ORDERED: ACETAMINOPHEN 325 MG TAB PO PRN (10:30)
[2016-08-27] MEDS ORDERED: MISCELLANEOUS NURSING INFORMATION XX SCH (10:30)
[2016-08-27] MEDS ORDERED: MORPHINE SULFATE 4 MG/ML INJ IV PRN (10:30)
--- NOTE | 2016-08-27 10:34 | PD.CONS ---
[facility] Service Critical Care Medicine Consult Requested By Dr. Bullard Reason for Consult Critical care management Primary Care Physician Unknown History of Present Illness 85-year-old [place] Mauritian-speaking female. Date of admission 08/27/2016. Past medical history includes dementia, depression, coronary disease status post CABG, history of aVR, hypertension and dyslipidemia. She is originally admitted to inpatient psych on 08/21 for Dillon act/aggressive behavior likely secondary to underlying dementia disorder. During hospitalization she was seen by hospitalist for medical management. On 08/23 was on Lovenox 50 mg subcutaneous twice a day as a bridge since INR is subtherapeutic for history of aVR. She is noted to have a hematoma in her left lower quadrant and hemoglobin is currently 9. Rapid response team called today secondary to tremors/Actonel status. CT head, abdomen and pelvis are currently pending. She is arousable but not following commands. She is tender with obvious bruising in her left lower quadrant. Review of Systems ROS Limitations: Altered Mental Status, Language Barrier Past Family Social History Allergies: Coded Allergies: No Known Allergies (Unverified , 08/20/16) Past Medical History Hypertension Dyslipidemia Coronary artery disease Dementia disorder Depression Past Surgical History History of CABG History of aVR Polypectomy Reported Medications Seroquel 25 mg by mouth daily Imdur 60 mg by mouth daily Lisinopril 2.5 mg by mouth daily Atenolol 12.5 mill grams by mouth daily Atorvastatin 40 mg by mouth daily Sertraline 25 mg by mouth daily Aricept 10 mg by mouth daily Namenda 10 mg by mouth twice a day Aspirin 81 mg by mouth daily Coumadin 3 mg/5 mg dosages daily Active Ordered Medications Reviewed in EMR Family History Mother with hypertension. Social History No documented history of tobacco, alcohol or IV drug use Physical Exam Physical Exam GENERAL: 85-year-old Slovak female resting in bed and appears to moderate distress SKIN: Warm and dry. No hematoma. Umbilical to left lower quadrant HEAD: Atraumatic. Normocephalic. EYES: Pupils equal and round around 3 mm bilaterally and reactive. No scleral icterus. No injection or drainage. ENT: No nasal bleeding or discharge. Mucous membranes pink and moist. NECK: Trachea midline. No JVD. CARDIOVASCULAR: Regular rate and rhythm. Ejection click heard prior to S2 noted RESPIRATORY: Clear to auscultation. Breath sounds equal bilaterally. GASTROINTESTINAL: Abdomen soft, tender to palpation periumbilical to left lower quadrant. Possible rectal sheath hematoma left lower quadrant Obvious ecchymoses noted. No rigidity. MUSCULOSKELETAL: Extremities bilateral lower extremity nonpitting edema. No obvious deformities. NEUROLOGICAL: Awake and alert. Currently not following commands. Mauritian- speaking. Moving all 4 extremity spontaneously. Not purposeful. Laboratory Laboratory Tests Test 08/27/16 11:10 White Blood Count 9.9 TH/MM3 Red Blood Count 2.76 MIL/MM3 Hemoglobin 8.8 GM/DL Hematocrit 26.0 % Mean Corpuscular Volume 94.1 FL Mean Corpuscular Hemoglobin 31.7 PG Mean Corpuscular Hemoglobin 33.7 % Concent Red Cell Distribution Width 15.2 % Platelet Count 177 TH/MM3 Mean Platelet Volume 9.4 FL Prothrombin Time 49.0 SEC Prothromb Time International 4.2 RATIO Ratio Activated Partial 40.1 SEC Thromboplast Time Sodium Level 140 MEQ/L Potassium Level 4.2 MEQ/L Chloride Level 106 MEQ/L Carbon Dioxide Level 25.2 MEQ/L Anion Gap 9 MEQ/L Blood Urea Nitrogen 43 MG/DL Creatinine 2.14 MG/DL Estimat Glomerular Filtration 22 ML/MIN Rate Random Glucose 106 MG/DL Lactic Acid Level 2.0 mmol/L Calcium Level 8.9 MG/DL Phosphorus Level 1.4 MG/DL Magnesium Level 3.1 MG/DL Total Bilirubin 0.5 MG/DL Aspartate Amino Transf 39 U/L (AST/SGOT) Alanine Aminotransferase 31 U/L (ALT/SGPT) Alkaline Phosphatase 122 U/L Total Protein 7.2 GM/DL Albumin 3.6 GM/DL Blood Type O NEGATIVE Blood Bank Comment Imaging Last Impressions Head CT 08/27/16 0000 Signed Impressions: Service Date/Time: Saturday, August 27, 2016 11:42 - CONCLUSION: Atrophy. No acute intracranial process. Wang Marin MD Assessment and Plan Assessment and Plan Neuro/Psych: Dementia disorder Behavioral disturbance NOS CT head ordered stat in light of altered mental status and continues Continue Seroquel 25 mg by mouth daily for anxiety as indicated Continue Namenda 10 mg twice a day and Aricept 10 mg daily for depression Continue sertraline 25 mg by mouth daily for depression Neuro checks Acetaminophen for fever Silex/morphine for pain management CV: History of hypertension History dyslipidemia History of aVR History of coronary disease status post CABG Elevated HDL 2-D echocardiogram is ordered Holding lisinopril 2.5 mg daily light of acute kidney injury Holding atenolol 12.5 mg daily and Imdur 60 mg daily light of possible bleed Holding atorvastatin 40 mg by mouth daily for discontinued. Resume when clinically indicated Holding aspirin 81 mg by mouth daily in light of hematoma Resp: Nasal cannula to maintain saturations greater than or equal to 92% Incentive spirometry while awake Chest x-ray 08/27 revealed no acute cardiopulmonary findings GI: Patient is currently nothing by mouth Protonix 40 iv daily for GI prophylaxis Colace/as needed Senokot for bowel regimen : Spencer if necessary for accurate I's and O's in a critically ill patient UA is pending Endo: Sliding-scale insulin if indicated to maintain euglycemia. Low regimen. Renal: Acute kidney injury Avoid nephrotoxic drugs Lisinopril be held Currently on normal saline at 84 cc an hour Check urine electrolytes/eosinophils and renal ultrasound Accurate I/Os Monitor urine output Heme: Anemia Coumadin use Patient did receive bridging dose of Lovenox 50 mg subcutaneous twice a day for "bridging" while INR subtherapeutic for aVR however currently has abdominal wall hematoma. INR currently 3.7. Received 2 units FFP and 25 mg protamine since factor X levels will take greater than 2 days return at this facility CBC/coags and fibrinogen pending Coumadin will be held ID: Monitor for infection Blood cultures 2, UA are pending FEN: Replace electrolytes as clinically indicated MSK: PT evaluate and treat Access - Utilize peripheral IV. Central line if indicated Prophylaxis - GI - Protonix - DVT - SCD/pharmacological prophylaxis held in light of elevated INR/possible bleeding Critical Care: The total critical care time was 65 minutes. Time to perform other separately billable procedures was not included in the critical care time. Code Status Full code Discussed Condition With Dr. Bullard. Patient. Ermias Portillo at bedside. Care plan discussed and all questions answered. En Ag MD Aug 27, 2016 10:34
[2016-08-27] MEDS ORDERED: ACETAMINOPHEN 325 MG SUPP RECTAL PRN (11:00)
[2016-08-27] MEDS ORDERED: SODIUM CHLOR 0.9% 1000 ML INJ 1,000 ML IV SCH (11:00)
[2016-08-27] MEDS: INSULIN NovoLIN REGULAR SUPPLEMENTAL SCALE SQ SCH ×3 (11:00→20:20)
[2016-08-27 11:37] LABS: MEAN CELL VOLUME 94.1 FL (80.0-100.0); MEAN CORPUSCULAR HEMOGLOBIN 31.7 PG (27.0-34.0); MEAN CORPUSCULAR HGB CONC 33.7 % (32.0-36.0); PLATELET COUNT 177 TH/MM3 (150-450); RED BLOOD COUNT 2.76 MIL/MM3 (4.00-5.30); RED CELL DISTRIBUTION WIDTH 15.2 % (11.6-17.2); REVIEW FLAG FINAL; WHITE BLOOD COUNT 9.9 TH/MM3 (4.0-11.0)
[2016-08-27 11:52] LABS: APTT (PATIENT) 40.1 SEC (24.3-30.1); INTERNATIONAL NORMALIZED RATIO 4.2 RATIO
[2016-08-27 11:54] LABS: ANION GAP 9 MEQ/L (5-15); AST (GOT) 39 U/L (15-37); BICARBONATE 25.2 MEQ/L (21.0-32.0); BLOOD UREA NITROGEN 43 MG/DL (7-18); CHLORIDE 106 MEQ/L (98-107); GLOMERULAR FILTRATION RATE 22 ML/MIN (>89); MAGNESIUM 3.1 MG/DL (1.5-2.5); POTASSIUM 4.2 MEQ/L (3.5-5.1); SODIUM (NA) 140 MEQ/L (136-145)
[2016-08-27 11:57] LABS: ALKALINE PHOSPHATASE 122 U/L (45-117); ALT (GPT) 31 U/L (10-53); TOTAL BILIRUBIN ADULT 0.5 MG/DL (0.2-1.0)
--- NOTE | 2016-08-27 11:58 | RADRPT ---
EXAM DATE/TIME: 08/27/2016 11:42 [facility] COMPARISON: No previous studies available for comparison. INDICATIONS : Altered mental status. RADIATION DOSE: 49.49 CTDIvol (mGy) MEDICAL HISTORY : Dementia. Seizures. Hypertension. SURGICAL HISTORY : None. ENCOUNTER: Initial ACUITY: 1 day PAIN SCALE: 0/10 LOCATION: cranial TECHNIQUE: Multiple contiguous axial images were obtained of the head. Using automated exposure control and adj ustment of the mA and/or kV according to patient size, radiation dose was kept as low as reasonably a chievable to obtain optimal diagnostic quality images. FINDINGS: CEREBRUM: Prominent ventricles and sulci consistent with atrophy. No evidence of midline shift, mass lesion, h emorrhage or acute infarction. No extra-axial fluid collections are seen. POSTERIOR FOSSA: The cerebellum and brainstem are intact. The 4th ventricle is midline. The cerebellopontine angle i s unremarkable. EXTRACRANIAL: The visualized portion of the orbits is intact. SKULL: The calvaria is intact. No evidence of skull fracture. CONCLUSION: Atrophy. No acute intracranial process. Wang Marin MD on August 27, 2016 at 11:55 Board Certified Radiologist. This report was verified electronically.
--- NOTE | 2016-08-27 12:36 | RADRPT ---
EXAM DATE/TIME: 08/27/2016 11:48 [facility] COMPARISON: No previous studies available for comparison. INDICATIONS : Abdomen pain. ORAL CONTRAST: No oral contrast ingested. RADIATION DOSE: 10.77 CTDIvol (mGy) MEDICAL HISTORY : Cardiovascular disease. Diabetes. SURGICAL HISTORY : None. ENCOUNTER: Initial ACUITY: 1 day PAIN SCALE: 5/10 LOCATION: Bilateral abdomen. TECHNIQUE: Volumetric scanning of the abdomen and pelvis was performed. Using automated exposure control and ad justment of the mA and/or kV according to patient size, radiation dose was kept as low as reasonably achievable to obtain optimal diagnostic quality images. FINDINGS: LOWER LUNGS: The visualized lower lungs are clear. LIVER: Homogeneous density without lesion. There is no dilation of the biliary tree. No calcified gallston es. There is a trace area of low density adjacent to the posterior margin of the left lobe of the joss er consistent with fluid. SPLEEN: Normal size without lesion. PANCREAS: Within normal limits. KIDNEYS: Normal in size and shape. There is no mass, stone, or hydronephrosis. Bilateral cortical renal cysts . A 1.3 cm upper pole cyst on the right and a 5.5 cm cyst involving the lower pole of the left. ADRENAL GLANDS: Within normal limits. VASCULAR: There is no aortic aneurysm. The aorta is diffusely calcified. BOWEL/MESENTERY: The stomach, small bowel, and colon demonstrate no acute abnormality. Surgical clips are seen associ ated with the remaining ascending colon. There is no free intraperitoneal air or fluid. Multiple colo nadeen diverticuli. No acute inflammation observed. ABDOMINAL WALL: There is enlargement of the left rectus abdominis muscle consistent with an intramuscular hematoma. T his measures 16.7 x 5.6 x 3.7 cm. There is mild stranding of the fat directly posterior to this. RETROPERITONEUM: There is no lymphadenopathy. BLADDER: No wall thickening or mass. REPRODUCTIVE: Within normal limits. INGUINAL: There is no lymphadenopathy or hernia. MUSCULOSKELETAL: Within normal limits for patient age. CONCLUSION: 1. Left rectus abdominis muscle hematoma. 2. Colonic diverticulosis. 3. Trace amount of fluid suspected adjacent to the left lobe of the liver. 4. Prior ascending colectomy. Tobi Dawkins Jr., MD on August 27, 2016 at 12:23 Board Certified Radiologist. This report was verified electronically.
[2016-08-27] MEDS ORDERED: PHYTONADIONE 5 MG TAB PO ONE (12:45)
[2016-08-27] MEDS ORDERED: SODIUM PHOSPHATE INJ 15 MMOL in SODIUM CHLORIDE 0.9% INJ 150 ML IV ONE (13:00)
[2016-08-27] MEDS: SODIUM CHLOR 0.9% 1000 ML INJ 1,000 ML IV SCH ×2 (13:36→18:59)
[2016-08-27 14:34] LABS: MEAN CELL VOLUME 93.3 FL (80.0-100.0); MEAN CORPUSCULAR HEMOGLOBIN 31.7 PG (27.0-34.0); PLATELET COUNT 162 TH/MM3 (150-450); RED BLOOD COUNT 2.46 MIL/MM3 (4.00-5.30); RED CELL DISTRIBUTION WIDTH 14.9 % (11.6-17.2); REVIEW FLAG FINAL; WHITE BLOOD COUNT 7.8 TH/MM3 (4.0-11.0)
[2016-08-27 14:53] LABS: INTERNATIONAL NORMALIZED RATIO 1.7 RATIO; PROTHROMBIN TIME - PATIENT 19.4 SEC (9.8-11.6)
[2016-08-27] MEDS ORDERED: PROTAMINE SULFATE 50 MG/5 ML VIAL IV PUSH ONE (15:15)
[2016-08-27] MEDS: ACETAMINOPHEN/HYDROcodone 325 MG/5 MG TAB PO PRN (15:17)
[2016-08-27] MEDS: ARTIFICIAL TEARS OPTH SOLN 15 ML BTL EACH EYE SCH ×2 (15:30→19:00)
[2016-08-27] MEDS: SODIUM CHLORIDE 0.9% FLUSH 5 ML FLUSH IV FLUSH SCH (19:58)
[2016-08-27] MEDS: DONEPEZIL HCL 5 MG TAB PO SCH (19:59)
[2016-08-27] MEDS: DOCUSATE SODIUM 100 MG CAP PO SCH (19:59)
[2016-08-27] MEDS: QUEtiapine FUMARATE 25 MG TAB PO SCH (19:59)
[2016-08-27] MEDS: MEMANTINE HCL 10 MG TAB PO SCH (19:59)
[2016-08-27 21:04] LABS: BACTERIA, URINE RARE /hpf; BLOOD, URINE SMALL (NEG); GLUCOSE,URINE NEG (NEG); KETONE, URINE NEG (NEG); MUCUS URINE FEW /lpf (OCC); NITRITE,URINE NEG (NEG); SQUAMOUS EPITHELIAL CELL URINE 1 /hpf (0-5); URINE COLOR YELLOW (YELLW/STRAW)
[2016-08-27 21:07] LABS: COMMENT (UR) CATH-CULT NOT IND; CULTURE IF INDICATED CATH CULTURE NOT IND
[2016-08-27 21:43] LABS: APTT (PATIENT) 32.4 SEC (24.3-30.1)
[2016-08-27 23:22] LABS: CKMB 0.7 NG/ML (0.5-3.6)
[2016-08-28] VITALS (18 sets, daily range): BP systolic 93–141; BP diastolic 49–64; PULSE 66–89; RESP 17–25; TEMP 97.9–99; O2SAT 92–100
[2016-08-28] MEDS: ACETAMINOPHEN/HYDROcodone 325 MG/5 MG TAB PO PRN ×2 (02:15→23:01)
[2016-08-28] MEDS: CHLORHEXIDINE GLUCONATE 2 % 1 PACK (2 CLOTHS) TOP SCH (03:34)
[2016-08-28 04:28] LABS: APTT (PATIENT) 31.8 SEC (24.3-30.1); INTERNATIONAL NORMALIZED RATIO 1.6 RATIO; PROTHROMBIN TIME - PATIENT 18.1 SEC (9.8-11.6)
[2016-08-28 04:31] LABS: AUTOMATED NEUTROPHIL # 3.5 TH/MM3 (1.8-7.7); BASOPHIL % 0.3 % (0.0-2.0); EOSINOPHIL % 0.9 % (0.0-4.0); MEAN CELL VOLUME 94.6 FL (80.0-100.0); MEAN CORPUSCULAR HEMOGLOBIN 31.8 PG (27.0-34.0); MEAN CORPUSCULAR HGB CONC 33.6 % (32.0-36.0); MONO % 10.2 % (0.0-8.0); NEUT % 68.6 % (16.0-70.0); PLATELET COUNT 127 TH/MM3 (150-450); RED BLOOD COUNT 2.16 MIL/MM3 (4.00-5.30); RED CELL DISTRIBUTION WIDTH 15.2 % (11.6-17.2); WHITE BLOOD COUNT 5.2 TH/MM3 (4.0-11.0)
[2016-08-28 04:44] LABS: HEMO FLAGS DIFF FINAL
[2016-08-28 04:47] LABS: HEMATOCRIT 20.4 % (35.0-46.0)
[2016-08-28 05:04] LABS: ALKALINE PHOSPHATASE 97 U/L (45-117); ALT (GPT) 32 U/L (10-53); ANION GAP 8 MEQ/L (5-15); AST (GOT) 36 U/L (15-37); BICARBONATE 25.1 MEQ/L (21.0-32.0); BLOOD UREA NITROGEN 34 MG/DL (7-18); CHLORIDE 115 MEQ/L (98-107); GLOMERULAR FILTRATION RATE 46 ML/MIN (>89); MAGNESIUM 2.5 MG/DL (1.5-2.5); POTASSIUM 3.8 MEQ/L (3.5-5.1); SODIUM (NA) 148 MEQ/L (136-145); TOTAL BILIRUBIN ADULT 0.5 MG/DL (0.2-1.0)
[2016-08-28] MEDS: INSULIN NovoLIN REGULAR SUPPLEMENTAL SCALE SQ SCH ×4 (06:43→21:00)
--- NOTE | 2016-08-28 08:44 | HHI.CCPN ---
Subjective Remarks/Hospital Course 85-year-old Malian Cambodian-speaking female. Date of admission 08/27/2016. Past medical history includes dementia, depression, coronary disease status post CABG, history of aVR, hypertension and dyslipidemia. She is originally admitted to inpatient psych on 08/21 for Dillon act/aggressive behavior likely secondary to underlying dementia disorder. During hospitalization she was seen by hospitalist for medical management. On 08/23 was on Lovenox 50 mg subcutaneous twice a day as a bridge since INR is subtherapeutic for history of aVR. She is noted to have a hematoma in her left lower quadrant and hemoglobin is currently 9. Rapid response team called today secondary to tremors/Actonel status. CT head, abdomen and pelvis are currently pending. She is arousable but not following commands. She is tender with obvious bruising in her left lower quadrant. Subjective 08/28: Currently resting in bed in no distress secondary to abdominal pain. Hematoma size appears of increased. Still making urine. Clinically stable. Receiving 1 unit PRBCs today. Repeat CT abdomen ordered for today. Objective Vital Signs Date Time Temp Pulse Resp B/P Pulse Ox O2 Delivery O2 Flow Rate FiO2 08/28/16 08:22 99 Nasal Cannula 2.00 08/28/16 06:00 98.2 66 20 107/51 Intake and Output 08/27/16 08/27/16 08/28/16 08:00 16:00 00:00 Intake Total 329 ml 815 ml Output Total 800 ml Balance 329 ml 15 ml Result Diagram: 08/28/16 0409 08/28/16 0409 Other Results Date/Time Procedure Status Source Growth 08/27/16 12:06 Aerobic Blood Culture Received Blood Peripheral Pending 08/27/16 12:06 Anaerobic Blood Culture Received Blood Peripheral Pending 08/27/16 12:14 Aerobic Blood Culture Received Blood Peripheral Pending 08/27/16 12:14 Anaerobic Blood Culture Received Blood Peripheral Pending Imaging Last Impressions Head CT 08/27/16 0000 Signed Impressions: Service Date/Time: Saturday, August 27, 2016 11:42 - CONCLUSION: Atrophy. No acute intracranial process. Wang Marin MD Abdomen/Pelvis CT 08/27/16 0000 Signed Impressions: Service Date/Time: Saturday, August 27, 2016 11:48 - CONCLUSION: 1. Left rectus abdominis muscle hematoma. 2. Colonic diverticulosis. 3. Trace amount of fluid suspected adjacent to the left lobe of the liver. 4. Prior ascending colectomy. Tobi Dawkins Jr., MD Objective Remarks GENERAL: 85-year-old Malian female resting in bed and appears to mild abdominal distress SKIN: Warm and dry. No hematoma. Umbilical to left lower quadrant HEAD: Atraumatic. Normocephalic. EYES: Pupils equal and round around 3 mm bilaterally and reactive. No scleral icterus. No injection or drainage. ENT: No nasal bleeding or discharge. Mucous membranes pink and moist. NECK: Trachea midline. No JVD. CARDIOVASCULAR: Regular rate and rhythm. Ejection click heard prior to S2 noted RESPIRATORY: Clear to auscultation. Breath sounds equal bilaterally. GASTROINTESTINAL: Abdomen soft, tender to palpation periumbilical to left lower quadrant. Slightly increasing rectal sheath hematoma left lower quadrant Obvious ecchymoses noted. No rigidity. MUSCULOSKELETAL: Extremities bilateral lower extremity nonpitting edema. No obvious deformities. NEUROLOGICAL: Awake and alert. Early following following commands. Cambodian- speaking. Moving all 4 extremity spontaneously. Urinary Catheter: Yes Assessment to: Continue Spencer insert reason: Prolonged Immobilization Vascular Central Line Catheter: No Assessment to: Continue A/P Assessment and Plan Neuro/Psych: Dementia disorder Behavioral disturbance NOS Continue Seroquel 25 mg by mouth twice daily for anxiety as indicated Continue Namenda 10 mg twice a day and Aricept 10 mg at night for dementia Continue sertraline 25 mg by mouth daily for depression Neuro checks Acetaminophen for fever [place]/morphine for pain management CV: History of hypertension History dyslipidemia History of aVR History of coronary disease status post CABG Elevated HDL 2-D echocardiogram is ordered. Results currently pending Holding lisinopril 2.5 mg daily light of acute kidney injury. Resume when clinically indicated Holding atenolol 12.5 mg daily and Imdur 60 mg daily light of possible bleed. Resume when clinically indicated Holding atorvastatin 40 mg by mouth daily for discontinued. Resume when clinically indicated Holding aspirin 81 mg by mouth daily in light of hematoma Resp: Nasal cannula to maintain saturations greater than or equal to 92% Incentive spirometry while awake Chest x-ray 08/27 revealed no acute cardiopulmonary findings GI: Rectus sheath hematoma Patient is currently nothing by mouth. Start clear liquid diet the past speech evaluation Protonix 40 iv daily for GI prophylaxis Colace/as needed Senokot for bowel regimen CT abdomen/posterior left rectus sheath hematoma. Recheck CT today. If size increasing despite reversal of anticoagulation will consult IR for possible embolization : Spencer if necessary for accurate I's and O's in a critically ill patient UA negative Endo: Sliding-scale insulin if indicated to maintain euglycemia. Low regimen. Renal: Acute kidney injury Avoid nephrotoxic drugs Lisinopril be held Currently on normal saline at 84 cc an hour Switch to half-normal saline with 10 mg KCl at 75 cc an hour Check urine electrolytes/eosinophils and renal ultrasound Accurate I/Os Monitor urine output Heme: Anemia Thrombocytopenia Coumadin use Patient did receive bridging dose of Lovenox 50 mg subcutaneous twice a day for "bridging" while INR subtherapeutic for aVR however currently has abdominal wall hematoma. INR currently 1.6 Received 2 units FFP and 25 mg protamine since factor X levels will take greater than 2 days return at this facility 1 unit PRBCs and 2 FFP given today Coumadin will be held ID: Monitor for infection Blood cultures 2, UA are pending FEN: Hypernatremia Replace electrolytes as clinically indicated MSK: PT evaluate and treat Access - Utilize peripheral IV. Central line if indicated Prophylaxis - GI - Protonix - DVT - SCD/pharmacological prophylaxis held in light of elevated INR/possible bleeding Critical Care: The total care time was 35 minutes. Time to perform other separately billable procedures was not included in the critical care time. Patient is stable from a critical care medicine standpoint. Will assign care to hospitalist in AM 08/29. En Ag MD Aug 28, 2016 08:44
[2016-08-28] MEDS ORDERED: SERTRALINE HCL 50 MG TAB PO SCH (09:00)
[2016-08-28] MEDS: MEMANTINE HCL 10 MG TAB PO SCH ×2 (09:00→21:19)
[2016-08-28] MEDS ORDERED: PANTOPRAZOLE SODIUM 40 MG VIAL IV SCH (09:00)
[2016-08-28] MEDS: SERTRALINE HCL 50 MG TAB PO SCH (09:00)
[2016-08-28] MEDS: ARTIFICIAL TEARS OPTH SOLN 15 ML BTL EACH EYE SCH ×3 (09:00→18:00)
[2016-08-28] MEDS ORDERED: QUEtiapine FUMARATE 25 MG TAB PO SCH (09:00)
[2016-08-28] MEDS: QUEtiapine FUMARATE 25 MG TAB PO SCH ×2 (09:00→21:19)
[2016-08-28] MEDS: DOCUSATE SODIUM 100 MG CAP PO SCH ×2 (09:00→21:19)
[2016-08-28] MEDS ORDERED: DONEPEZIL HCL 5 MG TAB PO SCH (09:00)
[2016-08-28] MEDS: SODIUM CHLORIDE 0.9% FLUSH 5 ML FLUSH IV FLUSH SCH ×2 (09:01→21:19)
[2016-08-28] MEDS ORDERED: FUROSEMIDE 20 MG/2 ML VIAL IV PUSH ONE (10:00)
--- NOTE | 2016-08-28 10:50 | RADRPT ---
EXAM DATE/TIME: 08/28/2016 10:20 [place] COMPARISON: CT ABDOMEN & PELVIS W/O CONTRAST, August 27, 2016, 11:48. INDICATIONS : Re-evaluate rectus sheath hematoma. ORAL CONTRAST: No oral contrast ingested. RADIATION DOSE: 10.03 CTDIvol (mGy) MEDICAL HISTORY : Cardiovascular disease. SURGICAL HISTORY : Pacemaker. ENCOUNTER: Subsequent ACUITY: 2 days PAIN SCALE: Non-responsive LOCATION: Abdomen. TECHNIQUE: Volumetric scanning of the abdomen and pelvis was performed. Using automated exposure control and ad justment of the mA and/or kV according to patient size, radiation dose was kept as low as reasonably achievable to obtain optimal diagnostic quality images. FINDINGS: LOWER LUNGS: The visualized lower lungs are clear. LIVER: Homogeneous density without lesion. There is no dilation of the biliary tree. No calcified gallston es. SPLEEN: Normal size without lesion. PANCREAS: Within normal limits. KIDNEYS: Normal in size and shape. Cyst upper pole right kidney again seen. There is also larger cyst along th e lower pole left kidney unchanged. Subcentimeter isodense lesion along the left mid kidney unchanged . There is no mass, stone, or hydronephrosis. ADRENAL GLANDS: Within normal limits. VASCULAR: There is no aortic aneurysm. BOWEL/MESENTERY: Diverticulosis without diverticulitis. Right hemicolectomy. There is no free intraperitoneal air or f luid. ABDOMINAL WALL: Within normal limits. RETROPERITONEUM: There is no lymphadenopathy. BLADDER: Spencer catheter decompresses urinary bladder. REPRODUCTIVE: Within normal limits. INGUINAL: There is no lymphadenopathy or hernia. MUSCULOSKELETAL: The rectus sheath hematoma on the left appears unchanged. This measures approximately 8.0 x 4.4 cm in feriorly. Craniocaudal dimension is 16.7 cm, unchanged. CONCLUSION: 1. Rectus sheath hematoma the left appears unchanged. 2. Bilateral renal cysts. There is a small subcentimeter indeterminate lesion left mid kidney. Long-t erm followup recommended. 3. Diverticulosis of the colon without diverticulitis. Ray Vizcarra MD on August 28, 2016 at 10:44 Board Certified Radiologist. This report was verified electronically.
--- NOTE | 2016-08-28 14:45 | EC ---
Study Study Date:08/27/2016 STUDY CONCLUSIONS SUMMARY - Left ventricle: The cavity size was normal. Wall thickness was normal. Systolic function was normal. The estimated ejection fraction was in the range of 55% to 60%. Wall motion was normal; there were no regional wall motion abnormalities. - Aortic valve: A bileaflet prosthesis was present. Valve area: 0.98cm^2(VTI). Valve area: 0.96cm^2 (Vmax). - Pulmonary arteries: PA peak pressure: 39mm Hg (S). If LV function is below 40, please consider prescribing an ACEI or ARB or document rationale for non-use. PROCEDURE DATA STUDY STATUS: Elective. Procedure: Transthoracic echocardiography. Image quality was good. Scanning was performed from the parasternal, apical, and subcostal acoustic windows. Study completion: The patient tolerated the procedure well. Transthoracic echocardiography. M-mode, complete 2D, complete spectral Doppler, and color Doppler. Height: Height: 59.8in. Weight: Weight: 114.8lb. Body mass index: BMI: 22.6kg/m^2. Body surface area: BSA: 1.47m^2. Patient status: Inpatient. CARDIAC ANATOMY LEFT VENTRICLE: The cavity size was normal. Wall thickness was normal. Systolic function was normal. The estimated ejection fraction was in the range of 55% to 60%. Wall motion was normal; there were no regional wall motion abnormalities. AORTIC VALVE: Normal thickness leaflets. A bileaflet prosthesis was present. Doppler: Transvalvular velocity was within the normal range. There was no stenosis. No regurgitation. Valve area: 0.98cm^2(VTI). Indexed valve area: 0.67cm^2/m^2 (VTI). Valve area: 0.96cm^2 (Vmax). Indexed valve area: 0.65cm^2/m^2 (Vmax). Mean gradient: 10mm Hg (S). Peak gradient: 27mm Hg (S). AORTA: Aortic root: The aortic root was normal in size. MITRAL VALVE: Structurally normal valve. Doppler: Transvalvular velocity was within the normal range. There was no evidence for stenosis. Trace to mild regurgitation. LEFT ATRIUM: The atrium was normal in size. RIGHT VENTRICLE: The cavity size was normal. Wall thickness was normal. PULMONIC VALVE: Doppler: Transvalvular velocity was within the normal range. There was no evidence for stenosis. No regurgitation. TRICUSPID VALVE: Structurally normal valve. Doppler: Transvalvular velocity was within the normal range. No regurgitation. PULMONARY ARTERY: The main pulmonary artery was normal-sized. Systolic pressure was within the normal range. RIGHT ATRIUM: The atrium was normal in size. PERICARDIUM: There was no pericardial effusion. SYSTEMIC VEINS: Inferior vena cava: The vessel was normal in size. Patient weight: 114.8lb _Ejection fraction:_ 65-75% _Fractional shortening:_ 32% up to 5Kg 5-11.5Kg 11.6-22.9Kg 23-45Kg 45-57Kg Aortic Root 7-13 <17 13-22 17-27 17-27 LA diam 6-13 <23 24-38 33-47 37-40 RVID 10-17 7-15 7-15 7-18 8-17 LVIDd 12-22 <32 24-38 33-47 37-40 LVPW 2-4 3-6 5-7 6-8 7-8 IVS 2-4 3-6 5-7 6-8 7-8 BASIC MEASUREMENTS ADULT NORMAL Left ventricle LV internal dimension, ED, chordal 44 mm 43-52 level, PLAX LV internal dimension, ES, chordal 30.9 mm 23-38 level, PLAX Fractional shortening, chordal level, 30 % >29 PLAX LV posterior wall thickness, ED 8.36 mm IVS/LVPW ratio, ED 1 <1.3 Ventricular septum Septal thickness, ED 8.36 mm Aorta Root diameter, ED 35 mm Left atrium Anterior-posterior dimension 30 mm Anterior-posterior dimension index 2.04 cm/m^2 <2.2 DOPPLER MEASUREMENTS ADULT NORMAL Main pulmonary artery Pressure, S *39 mm Hg =30 Aortic valve Peak velocity, S 209 cm/s Mean velocity, S 146 cm/s VTI, S 36.2 cm Mean gradient, S 10 mm Hg Peak gradient, S 27 mm Hg Valve area, VTI 0.98 cm^2 Valve area index, VTI 0.67 cm^2/m^2 Valve area, Vmax 0.96 cm^2 Valve area index, Vmax 0.65 cm^2/m^2 Mitral valve Peak E-wave velocity 63.2 cm/s Peak A-wave velocity 100 cm/s Deceleration time 190 ms 150-230 Peak E/A ratio 0.6 Tricuspid valve Regurgitant peak velocity 290 cm/s Peak RV-RA gradient, S 34 mm Hg Maximal regurgitant velocity 290 cm/s Systemic veins Estimated CVP 5 mm Hg Right ventricle RV pressure, S *41 mm Hg <30 Pulmonic valve Peak velocity, S 66.2 cm/s LEGEND: Mean values are shown as u=mean value. Asterisk (*) sifuentes values outside specified normal range. Prepared and signed by Sage Ewing [id number]
[2016-08-28] MEDS: POTASSIUM CHLORIDE INJ 10 MEQ in SODIUM CHLOR 0.45% 1000 ML INJ 1,000 ML IV SCH (17:11)
[2016-08-28 19:36] LABS: HEMATOCRIT 25.9 % (35.0-46.0); MEAN CELL VOLUME 91.8 FL (80.0-100.0); MEAN CORPUSCULAR HEMOGLOBIN 31.7 PG (27.0-34.0); MEAN CORPUSCULAR HGB CONC 34.6 % (32.0-36.0); PLATELET COUNT 144 TH/MM3 (150-450); RED BLOOD COUNT 2.82 MIL/MM3 (4.00-5.30); RED CELL DISTRIBUTION WIDTH 15.5 % (11.6-17.2); REVIEW FLAG FINAL; WHITE BLOOD COUNT 6.5 TH/MM3 (4.0-11.0)
[2016-08-28 19:46] LABS: APTT (PATIENT) 28.3 SEC (24.3-30.1); INTERNATIONAL NORMALIZED RATIO 1.6 RATIO; PROTHROMBIN TIME - PATIENT 17.7 SEC (9.8-11.6)
[2016-08-28] MEDS: DONEPEZIL HCL 5 MG TAB PO SCH (21:20)
[2016-08-29] VITALS (13 sets, daily range): BP systolic 133–178; BP diastolic 60–98; PULSE 70–95; RESP 12–24; TEMP 97.6–98.9; O2SAT 97–99
[2016-08-29] MEDS: POTASSIUM CHLORIDE INJ 10 MEQ in SODIUM CHLOR 0.45% 1000 ML INJ 1,000 ML IV SCH (03:38)
[2016-08-29] MEDS: CHLORHEXIDINE GLUCONATE 2 % 1 PACK (2 CLOTHS) TOP SCH (04:00)
[2016-08-29 06:22] LABS: AUTOMATED NEUTROPHIL # 3.9 TH/MM3 (1.8-7.7); BASOPHIL % 0.3 % (0.0-2.0); EOSINOPHIL # 0.2 TH/MM3 (0-0.4); HEMATOCRIT 27.3 % (35.0-46.0); HEMO FLAGS DIFF FINAL; LYMPH % 24.7 % (9.0-44.0); LYMPHOCYTE # 1.5 TH/MM3 (1.0-4.8); MEAN CELL VOLUME 92.3 FL (80.0-100.0); MEAN CORPUSCULAR HEMOGLOBIN 31.4 PG (27.0-34.0); PLATELET COUNT 147 TH/MM3 (150-450); RED BLOOD COUNT 2.96 MIL/MM3 (4.00-5.30); RED CELL DISTRIBUTION WIDTH 15.2 % (11.6-17.2); WHITE BLOOD COUNT 6.2 TH/MM3 (4.0-11.0)
[2016-08-29 06:52] LABS: APTT (PATIENT) 29.4 SEC (24.3-30.1); INTERNATIONAL NORMALIZED RATIO 1.1 RATIO; PROTHROMBIN TIME - PATIENT 12.4 SEC (9.8-11.6)
[2016-08-29 07:07] LABS: BICARBONATE 25.7 MEQ/L (21.0-32.0); MAGNESIUM 2.2 MG/DL (1.5-2.5); POTASSIUM 3.3 MEQ/L (3.5-5.1)
[2016-08-29] MEDS ORDERED: SODIUM PHOSPHATE INJ 30 MMOL in SODIUM CHLOR 0.9% 250 ML INJ 240 ML IV PRN (08:45)
[2016-08-29] MEDS ORDERED: POTASSIUM CHLOR 40 MEQ PREMIX 100 ML IV PRN ×2 (08:45)
[2016-08-29] MEDS ORDERED: POTASSIUM PHOSPHATE MONOBASIC 500 MG TAB PO PRN (08:45)
[2016-08-29] MEDS ORDERED: MAGNESIUM OXIDE 400 MG TAB PO PRN (08:45)
[2016-08-29] MEDS ORDERED: POTASSIUM CHLOR 20 MEQ PREMIX 100 ML IV PRN ×2 (08:45)
[2016-08-29] MEDS ORDERED: POTASSIUM PHOSPHATE INJ 30 MMOL in SODIUM CHLOR 0.9% 250 ML INJ 250 ML IV PRN (08:45)
[2016-08-29] MEDS ORDERED: MAGNESIUM SULFATE INJ 4 GM in SODIUM CHLORIDE 0.9% INJ 92 ML IV PRN (08:45)
[2016-08-29] MEDS ORDERED: cloNIDine HCL 0.1 MG TAB PO PRN (08:45)
[2016-08-29] MEDS ORDERED: hydrALAZINE HCL 20 MG/ML VIAL IV PRN (08:45)
[2016-08-29] MEDS ORDERED: MAGNESIUM SULFATE INJ 2 GM in SODIUM CHLORIDE 0.9% INJ 96 ML IV PRN (08:45)
[2016-08-29] MEDS ORDERED: POTASSIUM PHOSPHATE MONOBASIC 500 MG TAB PO/TUBE PRN (08:45)
[2016-08-29] MEDS ORDERED: POTASSIUM CL 40 MEQ/30 ML LIQ UDC PO/TUBE PRN ×2 (08:45)
[2016-08-29] MEDS: ARTIFICIAL TEARS OPTH SOLN 15 ML BTL EACH EYE SCH ×3 (09:00→18:00)
[2016-08-29] MEDS: DOCUSATE SODIUM 100 MG CAP PO SCH ×2 (09:19→21:04)
[2016-08-29] MEDS: MEMANTINE HCL 10 MG TAB PO SCH ×2 (09:19→21:04)
[2016-08-29] MEDS: SODIUM CHLORIDE 0.9% FLUSH 5 ML FLUSH IV FLUSH SCH ×2 (09:19→21:03)
[2016-08-29] MEDS: SERTRALINE HCL 50 MG TAB PO SCH (09:19)
[2016-08-29] MEDS: QUEtiapine FUMARATE 25 MG TAB PO SCH ×2 (09:19→21:04)
--- NOTE | 2016-08-29 09:24 | HHI.PR ---
Subjective Remarks Consulted by critical care medicine for transfer care medical management. Chart reviewed. Case discussed with hematology, RN and daughter. With the use of drop forge hand thru stratus, patient complains of shortness of breath on 2 L nasal cannula. Improving abdominal pain. Objective Vitals Vital Signs Date Time Temp Pulse Resp B/P Pulse Ox O2 Delivery O2 Flow Rate FiO2 08/29/16 06:00 70 08/29/16 04:00 77 08/29/16 04:00 98.4 77 21 146/68 97 08/29/16 02:00 70 08/29/16 00:00 79 08/29/16 00:00 98.7 79 12 133/60 99 08/28/16 22:00 86 08/28/16 20:00 98.8 89 25 141/64 92 08/28/16 20:00 89 08/28/16 19:52 98 21 08/28/16 18:00 77 08/28/16 16:04 80 08/28/16 16:00 98.3 77 17 117/57 97 08/28/16 15:29 95 21 08/28/16 12:00 77 08/28/16 12:00 98.6 76 17 115/56 100 08/28/16 10:00 80 I/O 08/28/16 08/28/16 08/28/16 08/29/16 08/29/16 08/29/16 07:00 15:00 23:00 07:00 15:00 23:00 Intake Total 580 ml 1245 ml 484 ml 634 ml Output Total 245 ml 2000 ml 750 ml 300 ml Balance 335 ml -755 ml -266 ml 334 ml Intake Oral 150 ml IV Total 580 ml 1245 ml 334 ml 634 ml Output Urine Total 245 ml 2000 ml 750 ml 300 ml # Bowel Movements 0 0 0 0 Result Diagram: 08/29/16 0511 08/29/16 0511 Imaging Last Impressions Chest X-Ray 08/29/16 0000 Signed Impressions: Service Date/Time: Monday, August 29, 2016 10:57 - CONCLUSION: Stable chest appearance with no acute disease Ruben Castro MD Abdomen/Pelvis CT 08/28/16 0000 Signed Impressions: Service Date/Time: Sunday, August 28, 2016 10:20 - CONCLUSION: 1. Rectus sheath hematoma the left appears unchanged. 2. Bilateral renal cysts. There is a small subcentimeter indeterminate lesion left mid kidney. Long-term followup recommended. 3. Diverticulosis of the colon without diverticulitis. Ray Vizcarra MD Head CT 08/27/16 0000 Signed Impressions: Service Date/Time: Saturday, August 27, 2016 11:42 - CONCLUSION: Atrophy. No acute intracranial process. aWng Marin MD Objective Remarks GENERAL: 85-year-old [place] female resting in bed and appears to b e short of breath on nasal cannula SKIN: Warm and dry. No hematoma. Umbilical to left lower quadrant HEAD: Atraumatic. Normocephalic. EYES: Pupils equal and round around 3 mm bilaterally and reactive. No scleral icterus. No injection or drainage. ENT: No nasal bleeding or discharge. Mucous membranes pink and moist. NECK: Trachea midline. No JVD. CARDIOVASCULAR: Regular rate and rhythm. Ejection click heard prior to S2 noted RESPIRATORY: Clear to auscultation. Decreased Breath sounds equal bilaterally. GASTROINTESTINAL: Abdomen soft, tender to palpation periumbilical to left lower quadrant. Obvious ecchymoses noted. No rigidity. MUSCULOSKELETAL: Extremities bilateral lower extremity nonpitting edema. No obvious deformities. NEUROLOGICAL: Awake and alert. She is following commands. Montserratian-speaking. Moving all 4 extremity spontaneously. Procedures none A/P Problem List: (1) Dementia with behavioral disturbance ICD Code: F03.91 Status: Chronic (2) HTN (hypertension) ICD Code: I10 Status: Chronic (3) CAD (coronary artery disease) ICD Code: I25.10 Status: Chronic (4) Rectus sheath hematoma ICD Code: S30.1XXA Status: Acute (5) ALIYAH (acute kidney injury) ICD Code: N17.9 Status: Acute Assessment and Plan Neuro/Psych: Dementia disorder Behavioral disturbance NOS Continue Seroquel 25 mg by mouth twice daily for anxiety as indicated Continue Namenda 10 mg twice a day and Aricept 10 mg at night for dementia Continue sertraline 25 mg by mouth daily for depression Neuro checks Acetaminophen for fever [place]/morphine for pain management CV: History of hypertension History dyslipidemia History of aVR History of coronary disease status post CABG Elevated HDL 2-D echocardiogram is ordered. Results are as expected with AV prosthesis Holding lisinopril 2.5 mg daily light of acute kidney injury. Resume when clinically indicated Holding atenolol 12.5 mg daily and Imdur 60 mg daily light of possible bleed. Resume when clinically indicated Holding atorvastatin 40 mg by mouth daily discontinued. Resume when clinically indicated Holding aspirin 81 mg by mouth daily in light of hematoma Anti-hypertensives as needed. She needs to be back on anticoagulation as soon as possible Resp: Nasal cannula to maintain saturations greater than or equal to 92% Incentive spirometry while awake Chest x-ray 08/27 revealed no acute cardiopulmonary findings Complains of shortness of breath. Repeat chest x-ray and discontinue IV fluids GI: Rectus sheath hematoma Patient to continue regular diet Colace/as needed Senokot for bowel regimen CT abdomen/posterior left rectus sheath hematoma which is stable on repeat CT. Discussed with family and patient, agrees with starting anticoagulation with heparin drip and Coumadin. Benefits outweigh risks at this time since anemia and hematoma stable. Repeat CBC today. Discussed with hematology who will evaluate patient today and decide when to start heparin drip : Discontinue Spencer catheter UA negative Endo: Not diabetic discontinue Sliding-scale insulin Renal: Acute kidney injury Avoid nephrotoxic drugs Lisinopril be held Improved discontinue IV fluids Accurate I/Os Monitor urine output Heme: Anemia Thrombocytopenia Coumadin use Patient did receive bridging dose of Lovenox 50 mg subcutaneous twice a day for "bridging" while INR subtherapeutic for aVR however currently has abdominal wall hematoma. INR currently 1.1 Received 2 units FFP and 25 mg protamine since factor X levels will take greater than 2 days return at this facility 1 unit PRBCs and 2 FFP given Coumadin currently on hold ID: Monitor for infection Blood cultures 2, UA are pending FEN: Hypernatremia Replace electrolytes as clinically indicated MSK: PT evaluate and treat Access - Utilize peripheral IV. Central line if indicated Prophylaxis - GI - Protonix - DVT - SCD/pharmacological prophylaxis held in light of elevated INR/possible bleeding She is critically ill and needs continued ICU monitoring. Time spent 35 minutes Shoaib Bullard MD Aug 29, 2016 09:24
--- NOTE | 2016-08-29 11:45 | RADRPT ---
EXAM DATE/TIME: 08/29/2016 10:57 [facility] COMPARISON: CHEST SINGLE AP, August 27, 2016, 9:50. INDICATIONS : Dyspnea. MEDICAL HISTORY : Dementia. Seizures. Hypertension SURGICAL HISTORY : None. ENCOUNTER: Subsequent ACUITY: 3 days PAIN SCORE: Non-responsive. LOCATION: Bilateral chest FINDINGS: Pacemaker device is noted with control pack over the left chest. The lungs are focally clear. No pleu ral effusion is evident. Cardiomediastinal contours are stable. CONCLUSION: Stable chest appearance with no acute disease Ruben Castro MD on August 29, 2016 at 11:43 Board Certified Radiologist. This report was verified electronically.
[2016-08-29 15:12] LABS: AUTOMATED NEUTROPHIL # 4.6 TH/MM3 (1.8-7.7); BASOPHIL % 0.4 % (0.0-2.0); EOSINOPHIL # 0.1 TH/MM3 (0-0.4); EOSINOPHIL % 2.3 % (0.0-4.0); HEMATOCRIT 29.1 % (35.0-46.0); HEMO FLAGS DIFF FINAL; LYMPH % 17.7 % (9.0-44.0); LYMPHOCYTE # 1.1 TH/MM3 (1.0-4.8); MEAN CELL VOLUME 92.2 FL (80.0-100.0); MEAN CORPUSCULAR HEMOGLOBIN 30.8 PG (27.0-34.0); MEAN CORPUSCULAR HGB CONC 33.5 % (32.0-36.0); MONO % 7.1 % (0.0-8.0); NEUT % 72.5 % (16.0-70.0); PLATELET COUNT 167 TH/MM3 (150-450); RED BLOOD COUNT 3.16 MIL/MM3 (4.00-5.30); RED CELL DISTRIBUTION WIDTH 15.1 % (11.6-17.2); WHITE BLOOD COUNT 6.3 TH/MM3 (4.0-11.0)
--- NOTE | 2016-08-29 15:38 | HHI.PYPN ---
Subjective Remarks Patient was seen today for psychiatric evaluation, patient was poorly cooperative, lethargic, distant, communication in primary language of the patient Georgian, patient stated that she is happy to be in a hospital in [place], she denies that we are in 1968, she reports good mood, denies suicidal or homicidal ideation, denies visual and auditory hallucinations. Nurse in charge doesn't report any agitation, aggressive behavior. Review of Systems Other No somatic complaints Objective Alert: Yes [place]: Person Mood: Calm Affect: Restricted Memory Intact: Immediate Hallucinations: Other Delusions: No Delusion Type: Other (none) Suicidal: Ideation (no SI) Homicidal: Ideation (no SI) Insight/Judgement poor Labs Test 08/28/16 08/28/16 08/29/16 08/29/16 19:25 19:27 05:11 10:08 White Blood Count 6.5 TH/MM3 6.2 TH/MM3 Red Blood Count 2.82 MIL/MM3 2.96 MIL/MM3 Hemoglobin 9.0 GM/DL 9.3 GM/DL Hematocrit 25.9 % 27.3 % Mean Corpuscular Volume 91.8 FL 92.3 FL Mean Corpuscular Hemoglobin 31.7 PG 31.4 PG Mean Corpuscular Hemoglobin 34.6 % 34.0 % Concent Red Cell Distribution Width 15.5 % 15.2 % Platelet Count 144 TH/MM3 147 TH/MM3 Mean Platelet Volume 8.9 FL 9.2 FL Prothrombin Time 17.7 SEC 12.4 SEC Prothromb Time International 1.6 RATIO 1.1 RATIO Ratio Activated Partial 28.3 SEC 29.4 SEC Thromboplast Time Neutrophils (%) (Auto) 62.0 % Lymphocytes (%) (Auto) 24.7 % Monocytes (%) (Auto) 10.0 % Eosinophils (%) (Auto) 3.0 % Basophils (%) (Auto) 0.3 % Neutrophils # (Auto) 3.9 TH/MM3 Lymphocytes # (Auto) 1.5 TH/MM3 Monocytes # (Auto) 0.6 TH/MM3 Eosinophils # (Auto) 0.2 TH/MM3 Basophils # (Auto) 0.0 TH/MM3 CBC Comment DIFF FINAL Differential Comment Sodium Level 142 MEQ/L Potassium Level 3.3 MEQ/L Chloride Level 106 MEQ/L Carbon Dioxide Level 25.7 MEQ/L Anion Gap 10 MEQ/L Blood Urea Nitrogen 20 MG/DL Creatinine 0.91 MG/DL Estimat Glomerular Filtration 59 ML/MIN Rate Random Glucose 98 MG/DL Calcium Level 8.3 MG/DL Phosphorus Level 2.4 MG/DL 1.7 MG/DL Magnesium Level 2.2 MG/DL Test 08/29/16 14:20 White Blood Count 6.3 TH/MM3 Red Blood Count 3.16 MIL/MM3 Hemoglobin 9.8 GM/DL Hematocrit 29.1 % Mean Corpuscular Volume 92.2 FL Mean Corpuscular Hemoglobin 30.8 PG Mean Corpuscular Hemoglobin 33.5 % Concent Red Cell Distribution Width 15.1 % Platelet Count 167 TH/MM3 Mean Platelet Volume 9.1 FL Neutrophils (%) (Auto) 72.5 % Lymphocytes (%) (Auto) 17.7 % Monocytes (%) (Auto) 7.1 % Eosinophils (%) (Auto) 2.3 % Basophils (%) (Auto) 0.4 % Neutrophils # (Auto) 4.6 TH/MM3 Lymphocytes # (Auto) 1.1 TH/MM3 Monocytes # (Auto) 0.4 TH/MM3 Eosinophils # (Auto) 0.1 TH/MM3 Basophils # (Auto) 0.0 TH/MM3 CBC Comment DIFF FINAL Differential Comment Date/Time Procedure Status Source Growth 08/27/16 12:14 Aerobic Blood Culture - Preliminary Resulted Blood Peripheral NO GROWTH IN 2 DAYS 08/27/16 12:14 Anaerobic Blood Culture - Preliminary Resulted Blood Peripheral NO GROWTH IN 2 DAYS Vitals/IOs Vital Signs Date Time Temp Pulse Resp B/P Pulse Ox O2 Delivery O2 Flow Rate FiO2 08/29/16 10:00 71 08/29/16 04:00 98.4 21 146/68 97 08/28/16 19:52 21 08/28/16 08:22 Nasal Cannula 2.00 Intake and Output 08/28/16 08/28/16 08/29/16 08:00 16:00 00:00 Intake Total 496 ml 1245 ml 484 ml Output Total 210 ml 2000 ml 750 ml Balance 286 ml -755 ml -266 ml Assessment & Plan Problem List: (1) Dementia with behavioral disturbance ICD Code: F03.91 Assessment & Plan Estimated LOS: days Justification for Cont. Inpt. Patient needs to be admitted in psychiatry for stabilization was medically clear Meir Samayoa MD Aug 29, 2016 15:38
[2016-08-29] MEDS: DONEPEZIL HCL 5 MG TAB PO SCH (21:04)
[2016-08-30] VITALS (10 sets, daily range): BP systolic 130–168; BP diastolic 65–79; PULSE 71–94; RESP 17–26; TEMP 98.1–99; O2SAT 97–100
[2016-08-30] MEDS: CHLORHEXIDINE GLUCONATE 2 % 1 PACK (2 CLOTHS) TOP SCH (04:00)
--- NOTE | 2016-08-30 05:46 | MB ---
cc: JORDEN HOUSE MD DATE OF CONSULTATION 08/29/2016 DATE OF 1930. The patient is currently admitted to the hospital. REASON FOR CONSULTATION Patient with a history of AVR who was on anticoagulation and developed a rectus sheath hematoma. Consult is for recommendations for anticoagulation. HISTORY OF PRESENT ILLNESS Ms. Narayan is an 85-year-old female who has a history of dementia with behavioral disturbances. She was [place] Acted in the emergency department on August 20, 2016. She has a history of dementia, coronary artery disease status post CABG, history of AVR on anticoagulation which has been stopped now, hypertension and hyperlipidemia. She was started on Lovenox 50 mg subcu twice a day as a bridge. She was subtherapeutic. She developed a hematoma in the left lower quadrant and she had a low hemoglobin of 9. She was on asprin as well. She has undergone imaging with a CT of the abdomen and pelvis; this shows a rectus sheath hematoma on the left. This is a fairly large-size hematoma which measures 16.7 x 5.6 x 3.7 cm. Her anticoagulation was stopped and she was given protamine and vitamin K as well as FFP. She had repeat abdominal CT on the which showed stable hematoma. Her hemoglobin has remained stable and it is 9.8 today. I have been consulted to make further recommendations in this patient with a history of AVR. REVIEW OF SYSTEMS A comprehensive 14-point review of systems was completed which is negative except as described in the HPI. PAST MEDICAL HISTORY 1. History of coronary artery disease status post CABG. 2. History of AVR. 3. Hypertension. 4. Hyperlipidemia 5. Dementia. 6. Depression. PAST SURGICAL HISTORY History of CABG. FAMILY HISTORY Unable to obtain due to the patient's mental status. SOCIAL HISTORY Unable to obtain due to the patient's dementia. MEDICATIONS 1. Magnesium oxide 800 mg p.o. p.r.n. 2. Hydralazine 10 mg IV q.6 hours p.r.n. 3. Clonidine 0.1 mg p.o. q.6 hours p.r.n. 4. Zoloft 25 mg daily. 5. Colace 100 mg p.o. b.i.d. 6. Seroquel 25 mg p.o. b.i.d. 7. Aricept 10 mg p.o. q.h.s. 8. Memantine 10 mg p.o. b.i.d. 9. Mylo 5/325 one tablet p.o. q.4 hours p.r.n. 10. Morphine sulfate 2 mg IV q.2 hours p.r.n. 11. Senna 17.2 mg tablet p.o. q.12 hours. 12. DuoNebs. ALLERGIES No known allergies. PHYSICAL EXAMINATION VITAL SIGNS: Blood pressure is 150/70, pulse is in the 70s, respiratory rate is 18, temperature is 98.9, O2 sats are 99% on room air. GENERAL: Elderly female in no apparent distress. HEENT: Pupils are equal, round, reactive to light. EOMI. No oral thrush. No oral lesion. NECK: Supple. The JVD, no bruits. No lymphadenopathy. CHEST: Clear to auscultation bilaterally. CARDIAC: S1, S2. Regular rate and rhythm. ABDOMEN: Soft. There is tenderness in the left quadrant. There is a large hematoma. EXTREMITIES: No edema, erythema or cyanosis. SKIN: Without any petechiae, lesion or bruises. NEURO: No focal deficits. She has significant dementia. LABORATORY DATA WBC 6.3, hemoglobin is 9.8, MCV is 92.2, platelet count is 167. Serum chemistries show creatinine of 0.91, AST 36, ALT 32, alk phos is 97. IMAGING STUDIES Reviewed and described in the HPI. ASSESSMENT AND PLAN This is an 85-year-old female with a history of dementia with behavioral disturbance, CAD status post CABG, history of AVR, hypertension, hyperlipidemia who was developed a hematoma in the left abdomen after being on Lovenox. I have been consulted to make further recommendations. 1. History of AVR: The patient was started on Lovenox and subsequently she developed a large hematoma. She is at high risk for developing thrombosis but she has multiple comorbidities including significant dementia. Coumadin management in a patient such as her is very difficult. She is at high risk for falls. On the other hand she is also high risk for thrombosis from her AVR. She now has a hematoma. We need to monitor her closely over the next 24 hours to make sure that her hematoma does not increase in size. We will closely monitor her hemoglobin. My recommendation would be to start her on heparin initially and then to monitor closely. If she does not have any further bleeding and her hemoglobin remains stable, we may attempt to start her on Coumadin. I will have a very low threshold to discontinue anticoagulation in this patient who has multiple risk factors including dementia, risk of falls and now with acute bleeding. Thank you for allowing me to participate in the care of this patient. I will continue to follow this patient along. MD EMORY Holley/TOBY /6:20 PM /5:29 AM [facility]
--- NOTE | 2016-08-30 07:46 | HHI.PR ---
Subjective Remarks F/U AVR. Seen with telugu speaking RN. Denies SOB and abd pain. Stooling. Has not voided since perez out. Objective Vitals Vital Signs Date Time Temp Pulse Resp B/P Pulse Ox O2 Delivery O2 Flow Rate FiO2 08/30/16 06:00 91 08/30/16 04:00 99.0 79 24 162/78 98 08/30/16 04:00 86 08/30/16 02:00 86 08/30/16 00:00 90 08/30/16 00:00 98.1 90 26 149/70 97 08/29/16 22:00 87 08/29/16 20:00 97.6 95 24 178/98 99 08/29/16 20:00 95 08/29/16 19:46 98 Nasal Cannula 2.00 08/29/16 18:00 84 08/29/16 16:00 98.9 82 18 150/70 99 08/29/16 16:00 72 08/29/16 14:00 74 08/29/16 12:00 78 08/29/16 12:00 98.8 87 19 147/64 97 08/29/16 10:00 71 08/29/16 08:00 75 08/29/16 08:00 98.5 76 20 151/68 98 I/O 08/29/16 08/29/16 08/29/16 08/30/16 08/30/16 08/30/16 07:00 15:00 23:00 07:00 15:00 23:00 Intake Total 634 ml 256 ml 346 ml 158 ml Output Total 300 ml 400 ml 1300 ml 450 ml Balance 334 ml -144 ml -954 ml -292 ml Intake Oral 120 ml 80 ml IV Total 634 ml 256 ml 226 ml 78 ml Output Urine Total 300 ml 400 ml 1300 ml 450 ml # Bowel Movements 0 0 0 Result Diagram: 08/29/16 1420 08/29/16 0511 Imaging Last Impressions Chest X-Ray 08/29/16 0000 Signed Impressions: Service Date/Time: Monday, August 29, 2016 10:57 - CONCLUSION: Stable chest appearance with no acute disease Ruben Castro MD Abdomen/Pelvis CT 08/28/16 0000 Signed Impressions: Service Date/Time: Sunday, August 28, 2016 10:20 - CONCLUSION: 1. Rectus sheath hematoma the left appears unchanged. 2. Bilateral renal cysts. There is a small subcentimeter indeterminate lesion left mid kidney. Long-term followup recommended. 3. Diverticulosis of the colon without diverticulitis. Ray Vizcarra MD Head CT 08/27/16 0000 Signed Impressions: Service Date/Time: Saturday, August 27, 2016 11:42 - CONCLUSION: Atrophy. No acute intracranial process. Wang Marin MD Objective Remarks GENERAL: 85-year-old Cypriot female resting in bed in no distress SKIN: Warm and dry. Ecchymosis Umbilical to left lower quadrant HEAD: Atraumatic. Normocephalic. EYES: Pupils equal and round around 3 mm bilaterally and reactive. No scleral icterus. No injection or drainage. ENT: No nasal bleeding or discharge. Mucous membranes pink and moist. NECK: Trachea midline. No JVD. CARDIOVASCULAR: Regular rate and rhythm. Ejection click heard prior to S2 noted RESPIRATORY: Clear to auscultation. Decreased Breath sounds equal bilaterally. GASTROINTESTINAL: Abdomen soft, tender to palpation periumbilical to left lower quadrant. Obvious ecchymoses noted. No rigidity. MUSCULOSKELETAL: Extremities bilateral lower extremity nonpitting edema. No obvious deformities. NEUROLOGICAL: Awake and alert. She is following commands. Vietnamese-speaking. Moving all 4 extremity spontaneously. Procedures none A/P Problem List: (1) Dementia with behavioral disturbance ICD Code: F03.91 Status: Chronic (2) HTN (hypertension) ICD Code: I10 Status: Chronic (3) CAD (coronary artery disease) ICD Code: I25.10 Status: Chronic (4) Rectus sheath hematoma ICD Code: S30.1XXA Status: Acute (5) ALIYAH (acute kidney injury) ICD Code: N17.9 Status: Acute Assessment and Plan Neuro/Psych: Dementia disorder Behavioral disturbance NOS Continue Seroquel 25 mg by mouth twice daily for anxiety as indicated Continue Namenda 10 mg twice a day and Aricept 10 mg at night for dementia Continue sertraline 25 mg by mouth daily for depression Neuro checks Acetaminophen for fever [place]/morphine for pain management CV: History of hypertension History dyslipidemia History of aVR History of coronary disease status post CABG Elevated HDL 2-D echocardiogram is ordered. Results are as expected with AV prosthesis Holding lisinopril 2.5 mg daily light of acute kidney injury. Resume when clinically indicated Holding aspirin 81 mg by mouth daily in light of hematoma Anti-hypertensives as needed. Restart atenolol and Imdur with hold parameters. Also restart Lipitor. Anticoagulation with IV heparin to be restarted but hold all with Coumadin per heme recommendations Resp: Nasal cannula to maintain saturations greater than or equal to 92% Incentive spirometry while awake Repeat chest x-ray without acute findings GI: Rectus sheath hematoma. Stable Patient to continue regular diet Colace/as needed Senokot for bowel regimen CT abdomen/posterior left rectus sheath hematoma which is stable on repeat CT. Discussed with family and patient, agrees with starting anticoagulation with heparin drip and Coumadin secondary to increased risk for thrombosis. Benefits outweigh risks at this time since anemia and hematoma stable. Repeat CBC stable discussed with hematology who agrees with heparin drip and monitor closely. Repeat H&H every 12 hours. Hold Coumadin for now : Discontinue Perez catheter UA negative Endo: Not diabetic discontinue Sliding-scale insulin Renal: Acute kidney injury Avoid nephrotoxic drugs Lisinopril be held Improved discontinue IV fluids Accurate I/Os Monitor urine output Heme: Anemia Thrombocytopenia Coumadin use Patient did receive bridging dose of Lovenox 50 mg subcutaneous twice a day for "bridging" while INR subtherapeutic for aVR however currently has abdominal wall hematoma. INR currently 1.1 Received 2 units FFP and 25 mg protamine since factor X levels will take greater than 2 days return at this facility 1 unit PRBCs and 2 FFP given Coumadin currently on hold ID: Monitor for infection Blood cultures 2 negative to date FEN: Hypernatremia Replace electrolytes as clinically indicated MSK: PT evaluate and treat Access - Utilize peripheral IV. Central line if indicated Prophylaxis - GI - Protonix - DVT - SCD/pharmacological prophylaxis Discharge Planning She is stable for transfer to medical floor with telemetry Shoaib Bullard MD Aug 30, 2016 07:45
[2016-08-30 07:58] LABS: AUTOMATED NEUTROPHIL # 4.7 TH/MM3 (1.8-7.7); BASOPHIL % 0.4 % (0.0-2.0); EOSINOPHIL # 0.2 TH/MM3 (0-0.4); EOSINOPHIL % 2.5 % (0.0-4.0); HEMATOCRIT 30.5 % (35.0-46.0); HEMO FLAGS DIFF FINAL; LYMPH % 15.5 % (9.0-44.0); MEAN CELL VOLUME 91.9 FL (80.0-100.0); MEAN CORPUSCULAR HGB CONC 33.8 % (32.0-36.0); NEUT % 74.6 % (16.0-70.0); PLATELET COUNT 183 TH/MM3 (150-450); RED BLOOD COUNT 3.32 MIL/MM3 (4.00-5.30); WHITE BLOOD COUNT 6.3 TH/MM3 (4.0-11.0)
[2016-08-30 08:44] LABS: BICARBONATE 25.7 MEQ/L (21.0-32.0); MAGNESIUM 2.1 MG/DL (1.5-2.5); POTASSIUM 3.6 MEQ/L (3.5-5.1)
[2016-08-30] MEDS: MEMANTINE HCL 10 MG TAB PO SCH ×2 (08:59→20:51)
[2016-08-30] MEDS: DOCUSATE SODIUM 100 MG CAP PO SCH ×2 (08:59→21:00)
[2016-08-30] MEDS: SODIUM CHLORIDE 0.9% FLUSH 5 ML FLUSH IV FLUSH SCH ×2 (08:59→20:51)
[2016-08-30] MEDS: ARTIFICIAL TEARS OPTH SOLN 15 ML BTL EACH EYE SCH ×3 (08:59→18:43)
[2016-08-30] MEDS: QUEtiapine FUMARATE 25 MG TAB PO SCH ×2 (08:59→20:51)
[2016-08-30] MEDS: SERTRALINE HCL 50 MG TAB PO SCH (09:00)
[2016-08-30] MEDS: HEPARIN-D5W INJ 250 ML IV SCH (09:01)
--- NOTE | 2016-08-30 10:00 | PD.ONC.PN ---
Subjective Subjective Remarks Afebrile overnight. No overnight events. Patient resting comfortably. Objective Data Date Time Temp Pulse Resp B/P Pulse Ox O2 Delivery O2 Flow Rate FiO2 08/30/16 08:00 98.3 93 17 168/79 98 08/30/16 08:00 93 08/30/16 06:00 91 08/30/16 04:00 99.0 79 24 162/78 98 08/30/16 04:00 86 08/30/16 02:00 86 08/30/16 00:00 90 08/30/16 00:00 98.1 90 26 149/70 97 08/29/16 22:00 87 08/29/16 20:00 97.6 95 24 178/98 99 08/29/16 20:00 95 08/29/16 19:46 98 Nasal Cannula 2.00 08/29/16 18:00 84 08/29/16 16:00 98.9 82 18 150/70 99 08/29/16 16:00 72 08/29/16 14:00 74 08/29/16 12:00 78 08/29/16 12:00 98.8 87 19 147/64 97 08/29/16 10:00 71 08/30/16 08/30/16 08/30/16 07:00 15:00 23:00 Intake Total 158 ml Output Total 450 ml Balance -292 ml Result Diagram: 08/30/1670508/30/16 07 Laboratory Results Laboratory Tests Test 08/29/16 08/29/16 08/30/16 10:08 14:20 07:06 Phosphorus Level 1.7 MG/DL 2.8 MG/DL White Blood Count 6.3 TH/MM3 6.3 TH/MM3 Red Blood Count 3.16 MIL/MM3 3.32 MIL/MM3 Hemoglobin 9.8 GM/DL 10.3 GM/DL Hematocrit 29.1 % 30.5 % Mean Corpuscular Volume 92.2 FL 91.9 FL Mean Corpuscular Hemoglobin 30.8 PG 31.0 PG Mean Corpuscular Hemoglobin 33.5 % 33.8 % Concent Red Cell Distribution Width 15.1 % 15.0 % Platelet Count 167 TH/MM3 183 TH/MM3 Mean Platelet Volume 9.1 FL 9.0 FL Neutrophils (%) (Auto) 72.5 % 74.6 % Lymphocytes (%) (Auto) 17.7 % 15.5 % Monocytes (%) (Auto) 7.1 % 7.0 % Eosinophils (%) (Auto) 2.3 % 2.5 % Basophils (%) (Auto) 0.4 % 0.4 % Neutrophils # (Auto) 4.6 TH/MM3 4.7 TH/MM3 Lymphocytes # (Auto) 1.1 TH/MM3 1.0 TH/MM3 Monocytes # (Auto) 0.4 TH/MM3 0.4 TH/MM3 Eosinophils # (Auto) 0.1 TH/MM3 0.2 TH/MM3 Basophils # (Auto) 0.0 TH/MM3 0.0 TH/MM3 CBC Comment DIFF FINAL DIFF FINAL Differential Comment Sodium Level 142 MEQ/L Potassium Level 3.6 MEQ/L Chloride Level 108 MEQ/L Carbon Dioxide Level 25.7 MEQ/L Anion Gap 8 MEQ/L Blood Urea Nitrogen 13 MG/DL Creatinine 0.72 MG/DL Estimat Glomerular Filtration 77 ML/MIN Rate Random Glucose 88 MG/DL Calcium Level 8.5 MG/DL Magnesium Level 2.1 MG/DL Culture Results Microbiology Date/Time Procedure Status Source Growth 08/27/16 12:06 Aerobic Blood Culture - Preliminary Resulted Blood Peripheral NO GROWTH IN 2 DAYS 08/27/16 12:06 Anaerobic Blood Culture - Preliminary Resulted Blood Peripheral NO GROWTH IN 2 DAYS 08/27/16 12:14 Aerobic Blood Culture - Preliminary Resulted Blood Peripheral NO GROWTH IN 2 DAYS 08/27/16 12:14 Anaerobic Blood Culture - Preliminary Resulted Blood Peripheral NO GROWTH IN 2 DAYS Administered Medications Medications (Trade) Dose Ordered Sig/Mauricio Route PRN Reason Start Time Stop Time Status Last Admin Dose Admin IV Flush (NS Flush) 2 ml BID IV FLUSH 08/27/16 21:00 08/30/16 08:59 Acetaminophen/ Hydrocodone Bitart ([place] 5-325 Mg) 1 tab Q4H PRN PO PAIN SCALE 1 TO 5 08/27/16 10:30 08/28/16 23:01 Artificial Tears (Tears Naturale Opth Soln) 1 drop TID EACH EYE 08/27/16 13:00 08/30/16 08:59 Docusate Sodium (Colace) 100 mg BID PO 08/27/16 21:00 08/30/16 08:59 Chlorhexidine Gluconate (Chlorhexidine 2% Cloth) 3 pack Taper DAILY@04 TOP 08/28/16 04:00 08/24/17 03:59 08/30/16 04:00 Quetiapine Fumarate (SEROquel) 25 mg BID PO 08/27/16 21:00 08/30/16 08:59 Donepezil HCl (Aricept) 10 mg HS PO 08/27/16 21:00 08/29/16 21:04 Memantine (Namenda) 10 mg BID PO 08/27/16 21:00 08/30/16 08:59 Sertraline HCl (Zoloft) 25 mg DAILY PO 08/28/16 09:00 08/30/16 09:00 Potassium Chloride 40 meq 40 meq UNSCH PRN PO/TUBE For Potassium 3.3 - 3.5 mEq/L 08/29/16 08:45 08/29/16 09:18 Sodium Phosphate 30 mmol/Sodium Chloride 250 ml @ 42 mls/hr UNSCH PRN IV For Phosphorus < 2.5 mg/dL 08/29/16 08:45 08/29/16 15:57 Heparin Sodium/ Dextrose (Heparin-D5W Inj) 250 ml @ 0 mls/hr TITRATE IV 08/30/16 07:45 08/30/16 09:01 Objective Remarks GENERAL: Elderly female, sitting upright in bed in nad. SKIN: Warm and dry. HEAD: Normocephalic. EYES:No injection or drainage. NECK: Supple, trachea midline. CARDIOVASCULAR: +S1/S2, tachycardic. RESPIRATORY: anterior elizondo clear. GASTROINTESTINAL: Abdomen soft, with healing ecchymoses. mildly tender around bruising. EXTREMITIES: No cyanosis, or edema. MUSCULOSKELETAL: Adequate muscle tone. NEUROLOGICAL: awake and alert, normal speech. Assessment/Plan Problem List: (1) Rectus sheath hematoma Status: Acute Plan: --developed while on Lovenox which has been stopped. now on heparin gtt --H/H stable. (2) Aortic valve replaced Status: Acute Plan: --on heparin gtt --monitor H/H closely Assessment 85y/o female with a history of AVR who was on anticoagulation and developed a rectus sheath hematoma. Hematology consulted for recommendations for anticoagulation. h/o dementia with behavioral disturbances. --admitted as BA h/o hypertension and hyperlipidemia and CAD Plan 1. continue heparin gtt 2. monitor H/H Attending Statement The exam, history, and the medical decision-making described in the above note were completed with the assistance of the mid-level provider. I reviewed and agree with the findings presented. I attest that I had a [id number] encounter with the patient on the same day, and personally performed and documented my assessment and findings in the medical record. Carmen Briscoe Aug 30, 2016 10:00 Randal Pompa MD Aug 30, 2016 20:15
[2016-08-30 11:07] LABS: INTERNATIONAL NORMALIZED RATIO 1.1 RATIO; PROTHROMBIN TIME - PATIENT 12.5 SEC (9.8-11.6)
[2016-08-30 11:11] LABS: APTT (PATIENT) 27.6 SEC (24.3-30.1)
[2016-08-30 16:13] LABS: BACTERIA, URINE OCC /hpf; BLOOD, URINE SMALL (NEG); COMMENT (UR) CATH-CULTURE IND; CULTURE IF INDICATED CATH CULTURE IND; GLUCOSE,URINE NEG (NEG); KETONE, URINE NEG (NEG); MUCUS URINE FEW /lpf (OCC); NITRITE,URINE NEG (NEG); PH, URINE 6.5 (5.0-8.5); RENAL EPITHELIAL CELLS <1 /hpf; SQUAMOUS EPITHELIAL CELL URINE 1 /hpf (0-5); TRANSITIONAL EPI CELLS, URINE <1 /hpf; URINE COLOR YELLOW (YELLW/STRAW)
[2016-08-30 17:40] LABS: HEMATOCRIT 29.1 % (35.0-46.0); REVIEW FLAG FINAL
[2016-08-30] MEDS: ATENOLOL 25 MG TAB PO SCH (18:42)
[2016-08-30] MEDS: DONEPEZIL HCL 5 MG TAB PO SCH (20:51)
[2016-08-30] MEDS: ATORVASTATIN 40 MG TAB PO SCH (20:51)
[2016-08-31] VITALS (10 sets, daily range): BP systolic 114–161; BP diastolic 63–74; PULSE 63–85; RESP 16–26; TEMP 98–99.2; O2SAT 98–100
[2016-08-31 02:06] LABS: AUTOMATED NEUTROPHIL # 5.6 TH/MM3 (1.8-7.7); BASOPHIL % 0.1 % (0.0-2.0); EOSINOPHIL # 0.2 TH/MM3 (0-0.4); EOSINOPHIL % 2.6 % (0.0-4.0); HEMATOCRIT 30.6 % (35.0-46.0); HEMO FLAGS DIFF FINAL; LYMPH % 23.1 % (9.0-44.0); LYMPHOCYTE # 1.9 TH/MM3 (1.0-4.8); MEAN CELL VOLUME 92.6 FL (80.0-100.0); MEAN CORPUSCULAR HEMOGLOBIN 31.1 PG (27.0-34.0); MEAN CORPUSCULAR HGB CONC 33.6 % (32.0-36.0); MONO % 7.1 % (0.0-8.0); NEUT % 67.1 % (16.0-70.0); PLATELET COUNT 191 TH/MM3 (150-450); RED BLOOD COUNT 3.31 MIL/MM3 (4.00-5.30); WHITE BLOOD COUNT 8.4 TH/MM3 (4.0-11.0)
[2016-08-31 02:21] LABS: BICARBONATE 23.5 MEQ/L (21.0-32.0); POTASSIUM 3.9 MEQ/L (3.5-5.1)
[2016-08-31] MEDS: CHLORHEXIDINE GLUCONATE 2 % 1 PACK (2 CLOTHS) TOP SCH ×2 (02:47→21:35)
[2016-08-31 03:04] LABS: APTT (PATIENT) 52.5 SEC (24.3-30.1)
[2016-08-31] MEDS: SERTRALINE HCL 50 MG TAB PO SCH (08:59)
[2016-08-31] MEDS: SODIUM CHLORIDE 0.9% FLUSH 5 ML FLUSH IV FLUSH SCH ×2 (08:59→21:34)
[2016-08-31] MEDS: DOCUSATE SODIUM 100 MG CAP PO SCH ×2 (08:59→21:34)
[2016-08-31] MEDS: ARTIFICIAL TEARS OPTH SOLN 15 ML BTL EACH EYE SCH ×3 (08:59→19:25)
[2016-08-31] MEDS: MEMANTINE HCL 10 MG TAB PO SCH ×2 (09:00→21:34)
[2016-08-31] MEDS: QUEtiapine FUMARATE 25 MG TAB PO SCH ×2 (09:00→21:34)
[2016-08-31] MEDS: ISOSORBIDE MONONITRATE 60 MG TAB PO SCH (09:00)
[2016-08-31] MEDS: ATENOLOL 25 MG TAB PO SCH (09:00)
[2016-08-31 09:04] LABS: REVIEW FLAG FINAL
[2016-08-31 09:15] LABS: APTT (PATIENT) 50.4 SEC (24.3-30.1)
--- NOTE | 2016-08-31 09:52 | HHI.PR ---
Subjective Remarks Follow-up rectus sheath hematoma. Patient denies abdominal pain. Tolerating heparin drip. Patient developed urinary retention Spencer catheter reinserted urine culture growing gram-negative yahaira. Patient denies UTI symptoms no back pain. Discussed with RN who assisted with translation Objective Vitals Vital Signs Date Time Temp Pulse Resp B/P Pulse Ox O2 Delivery O2 Flow Rate FiO2 08/31/16 07:56 98 Nasal Cannula 2.00 08/31/16 04:00 98.9 74 26 156/74 100 08/31/16 04:00 68 08/31/16 00:00 98.9 70 20 161/71 100 08/31/16 00:00 70 08/30/16 20:40 100 2.00 08/30/16 20:00 72 08/30/16 20:00 98.5 71 23 146/65 100 08/30/16 16:00 85 08/30/16 16:00 98.2 85 26 146/67 100 08/30/16 12:00 98.4 79 19 130/74 100 08/30/16 12:00 94 08/30/16 10:00 91 I/O 08/30/16 08/30/16 08/30/16 08/31/16 08/31/16 08/31/16 07:00 15:00 23:00 07:00 15:00 23:00 Intake Total 158 ml 227 ml 334 ml 96 ml Output Total 450 ml 350 ml 250 ml Balance -292 ml 227 ml -16 ml -154 ml Intake Oral 80 ml 120 ml 240 ml IV Total 78 ml 107 ml 94 ml 96 ml Output Urine Total 450 ml 350 ml 250 ml # Bowel Movements 0 2 Result Diagram: 08/31/16 0831 08/31/16 0149 Imaging Last Impressions Chest X-Ray 08/29/16 0000 Signed Impressions: Service Date/Time: Monday, August 29, 2016 10:57 - CONCLUSION: Stable chest appearance with no acute disease Ruben Castro MD Abdomen/Pelvis CT 08/28/16 0000 Signed Impressions: Service Date/Time: Sunday, August 28, 2016 10:20 - CONCLUSION: 1. Rectus sheath hematoma the left appears unchanged. 2. Bilateral renal cysts. There is a small subcentimeter indeterminate lesion left mid kidney. Long-term followup recommended. 3. Diverticulosis of the colon without diverticulitis. Ray Vizcarra MD Head CT 08/27/16 0000 Signed Impressions: Service Date/Time: Saturday, August 27, 2016 11:42 - CONCLUSION: Atrophy. No acute intracranial process. Wang Marin MD Objective Remarks GENERAL: 85-year-old [place] female resting in bed in no distress SKIN: Warm and dry. Ecchymosis Umbilical to left lower quadrant HEAD: Atraumatic. Normocephalic. EYES: Pupils equal and round around 3 mm bilaterally and reactive. No scleral icterus. No injection or drainage. ENT: No nasal bleeding or discharge. Mucous membranes pink and moist. NECK: Trachea midline. No JVD. CARDIOVASCULAR: Regular rate and rhythm. Ejection click heard prior to S2 noted RESPIRATORY: Clear to auscultation. Decreased Breath sounds equal bilaterally. GASTROINTESTINAL: Abdomen soft, mildly tender to palpation periumbilical to left lower quadrant. Obvious ecchymoses noted. No rigidity. MUSCULOSKELETAL: Extremities bilateral lower extremity nonpitting edema. No obvious deformities. NEUROLOGICAL: Awake and alert. She is following commands. [place]-speaking. Moving all 4 extremity spontaneously. Procedures none A/P Problem List: (1) Dementia with behavioral disturbance ICD Code: F03.91 Status: Chronic (2) HTN (hypertension) ICD Code: I10 Status: Chronic (3) CAD (coronary artery disease) ICD Code: I25.10 Status: Chronic (4) Rectus sheath hematoma ICD Code: S30.1XXA Status: Acute (5) ALIYAH (acute kidney injury) ICD Code: N17.9 Status: Acute Assessment and Plan Neuro/Psych: Dementia disorder Behavioral disturbance NOS Continue Seroquel 25 mg by mouth twice daily for anxiety as indicated Continue Namenda 10 mg twice a day and Aricept 10 mg at night for dementia Continue sertraline 25 mg by mouth daily for depression Neuro checks Acetaminophen for fever [place]/morphine for pain management Psychiatry has accepted patient once medically clear CV: History of hypertension History dyslipidemia History of aVR History of coronary disease status post CABG Elevated HDL 2-D echocardiogram is ordered. Results are as expected with AV prosthesis Holding lisinopril 2.5 mg daily light of acute kidney injury. Resume when clinically indicated Holding aspirin 81 mg by mouth daily in light of hematoma Anti-hypertensives as needed. Restart atenolol and Imdur with hold parameters. Also restart Lipitor. Anticoagulation with IV heparin to be continued but hold Coumadin per heme recommendations Resp: Nasal cannula to maintain saturations greater than or equal to 92% Incentive spirometry while awake Repeat chest x-ray without acute findings GI: Rectus sheath hematoma. Stable Patient to continue regular diet Colace/as needed Senokot for bowel regimen CT abdomen/posterior left rectus sheath hematoma which is stable on repeat CT. Discussed with family and patient, agrees with starting anticoagulation with heparin drip and Coumadin secondary to increased risk for thrombosis. Benefits outweigh risks at this time since anemia and hematoma stable. Repeat CBC stable discussed with hematology who agrees with heparin drip and monitor closely. Repeat H&H every 12 hours. Hold Coumadin for now : Urinary retention. Spencer catheter reinserted. Spencer care Endo: Not diabetic discontinue Sliding-scale insulin Renal: Acute kidney injury Avoid nephrotoxic drugs Lisinopril be held Improved discontinue IV fluids Accurate I/Os Monitor urine output Heme: Anemia Thrombocytopenia Coumadin use Patient did receive bridging dose of Lovenox 50 mg subcutaneous twice a day for "bridging" while INR subtherapeutic for aVR however currently has abdominal wall hematoma. INR currently 1.1 Received 2 units FFP and 25 mg protamine since factor X levels will take greater than 2 days return at this facility 1 unit PRBCs and 2 FFP given Coumadin currently on hold ID: Gram-negative yahaira UTI. Start Ceftin. Blood cultures 2 negative to date FEN: Hypernatremia. Improved Replace electrolytes as clinically indicated MSK: PT evaluate and treat Access - Utilize peripheral IV. Central line if indicated Prophylaxis - GI - Protonix - DVT - SCD/pharmacological prophylaxis Discharge Planning She is stable for transfer to medical floor with telemetry Shoaib Bullard MD Aug 31, 2016 09:52
--- NOTE | 2016-08-31 10:56 | PD.ONC.PN ---
Subjective Subjective Remarks Afebrile overnight. Pt resting in bed in no distress. Awakens easily. Somewhat confused. Per RN she has had no bleeding. She will be transferred to a tele floor sometime today. Objective Data Date Time Temp Pulse Resp B/P Pulse Ox O2 Delivery O2 Flow Rate FiO2 08/31/16 07:56 98 Nasal Cannula 2.00 08/31/16 04:00 98.9 74 26 156/74 100 08/31/16 04:00 68 08/31/16 00:00 98.9 70 20 161/71 100 08/31/16 00:00 70 08/30/16 20:40 100 2.00 08/30/16 20:00 72 08/30/16 20:00 98.5 71 23 146/65 100 08/30/16 16:00 85 08/30/16 16:00 98.2 85 26 146/67 100 08/30/16 12:00 98.4 79 19 130/74 100 08/30/16 12:00 94 08/31/16 08/31/16 08/31/16 07:00 15:00 23:00 Intake Total 96 ml Output Total 250 ml Balance -154 ml Result Diagram: 08/31/16 0831 08/31/16 0149 Laboratory Results Laboratory Tests Test 08/30/16 08/30/16 08/31/16 08/31/16 15:00 17:28 01:49 02:12 Urine Color YELLOW Urine Turbidity HAZY Urine pH 6.5 Urine Specific [place] 1.017 Urine Protein 30 mg/dL Urine Glucose (UA) NEG mg/dL Urine Ketones NEG mg/dL Urine Occult Blood SMALL Urine Nitrite NEG Urine Bilirubin NEG Urine Urobilinogen LESS THAN 2.0 MG/DL Urine Leukocyte Esterase LARGE Urine RBC 4 /hpf Urine WBC 52 /hpf Urine WBC Clumps FEW Urine Squamous Epithelial 1 /hpf Cells Urine Transitional Epithelial <1 /hpf Cells Urine Renal Epithelial Cells <1 /hpf Urine Bacteria OCC /hpf Urine Mucus FEW /lpf Microscopic Urinalysis Comment CATH-CULTURE IND Hemoglobin 9.9 GM/DL 10.3 GM/DL Hematocrit 29.1 % 30.6 % Activated Partial 44.0 SEC 52.5 SEC Thromboplast Time White Blood Count 8.4 TH/MM3 Red Blood Count 3.31 MIL/MM3 Mean Corpuscular Volume 92.6 FL Mean Corpuscular Hemoglobin 31.1 PG Mean Corpuscular Hemoglobin 33.6 % Concent Red Cell Distribution Width 15.0 % Platelet Count 191 TH/MM3 Mean Platelet Volume 8.8 FL Neutrophils (%) (Auto) 67.1 % Lymphocytes (%) (Auto) 23.1 % Monocytes (%) (Auto) 7.1 % Eosinophils (%) (Auto) 2.6 % Basophils (%) (Auto) 0.1 % Neutrophils # (Auto) 5.6 TH/MM3 Lymphocytes # (Auto) 1.9 TH/MM3 Monocytes # (Auto) 0.6 TH/MM3 Eosinophils # (Auto) 0.2 TH/MM3 Basophils # (Auto) 0.0 TH/MM3 CBC Comment DIFF FINAL Differential Comment Sodium Level 143 MEQ/L Potassium Level 3.9 MEQ/L Chloride Level 111 MEQ/L Carbon Dioxide Level 23.5 MEQ/L Anion Gap 9 MEQ/L Blood Urea Nitrogen 17 MG/DL Creatinine 0.74 MG/DL Estimat Glomerular Filtration 75 ML/MIN Rate Random Glucose 79 MG/DL Calcium Level 8.8 MG/DL Magnesium Level 2.0 MG/DL Test 08/31/16 08:31 Hemoglobin 10.5 GM/DL Hematocrit 31.0 % Activated Partial 50.4 SEC Thromboplast Time Culture Results Microbiology Date/Time Procedure Status Source Growth 08/30/16 10:30 Stool Occult Blood (FLOYD) - Final Complete Stool Stool HEMOCCULT NEGATIVE 08/30/16 15:00 Urine Culture Received Urine Catheterized Urine Pending Administered Medications Medications (Trade) Dose Ordered Sig/Mauricio Route PRN Reason Start Time Stop Time Status Last Admin Dose Admin IV Flush (NS Flush) 2 ml BID IV FLUSH 08/27/16 21:00 08/31/16 08:59 Acetaminophen/ Hydrocodone Bitart ([place] 5-325 Mg) 1 tab Q4H PRN PO PAIN SCALE 1 TO 5 08/27/16 10:30 08/28/16 23:01 Artificial Tears (Tears Naturale Opth Soln) 1 drop TID EACH EYE 08/27/16 13:00 08/31/16 08:59 Docusate Sodium (Colace) 100 mg BID PO 08/27/16 21:00 08/31/16 08:59 Chlorhexidine Gluconate (Chlorhexidine 2% Cloth) 3 pack Taper DAILY@04 TOP 08/28/16 04:00 08/24/17 03:59 08/31/16 02:47 Quetiapine Fumarate (SEROquel) 25 mg BID PO 08/27/16 21:00 08/31/16 09:00 Donepezil HCl (Aricept) 10 mg HS PO 08/27/16 21:00 08/30/16 20:51 Memantine (Namenda) 10 mg BID PO 08/27/16 21:00 08/31/16 09:00 Sertraline HCl 25 mg 25 mg DAILY PO 08/28/16 09:00 08/31/16 08:59 Heparin Sodium/ Dextrose (Heparin-D5W Inj) 250 ml @ 0 mls/hr TITRATE IV 08/30/16 07:45 08/30/16 09:01 Atenolol (Tenormin) 12.5 mg DAILY PO 08/30/16 12:00 08/31/16 09:00 Atorvastatin Calcium (Lipitor) 40 mg HS PO 08/30/16 21:00 08/30/16 20:51 Isosorbide Mononitrate (Imdur) 60 mg DAILY PO 08/31/16 09:00 08/31/16 09:00 Objective Remarks GENERAL: Elderly female, asleep in bed in no distress. SKIN: Warm and dry. HEAD: Normocephalic. EYES:No injection or drainage. NECK: Supple, trachea midline. CARDIOVASCULAR: +S1/S2. RESPIRATORY: Clear anteriorly. GASTROINTESTINAL: Abdomen soft, with healing ecchymoses. EXTREMITIES: No cyanosis, or edema. NEUROLOGICAL: Moving all extremities. Normal speech. Assessment/Plan Problem List: (1) Rectus sheath hematoma Status: Acute Plan: --developed while on Lovenox which has been stopped. now on heparin gtt --H/H stable. (2) Aortic valve replaced Status: Acute Plan: --on heparin gtt --monitor H/H closely Assessment 85y/o female with a history of AVR who was on anticoagulation and developed a rectus sheath hematoma. Hematology consulted for recommendations for anticoagulation. h/o dementia with behavioral disturbances. --admitted as BA h/o hypertension and hyperlipidemia and CAD Plan 1. Monitor hgb. 2. Tolerating heparin. No bleeding. 3. She would likely be a poor candidate for oral anticoagulation. Attending Statement The exam, history, and the medical decision-making described in the above note were completed with the assistance of the mid-level provider. I reviewed and agree with the findings presented. I attest that I had a [id number] encounter with the patient on the same day, and personally performed and documented my assessment and findings in the medical record. Continue heparin for now. monitor Hb. Family not present. Attempted to contact them Hematoma stable. If she has reliable follow-up with PCP--can start coumadin if Hb remains stable and hematoma not getting bigger. Ella Garcia Aug 31, 2016 10:56 Randal Pompa MD Aug 31, 2016 21:37
[2016-08-31] MEDS: CEFUROXIME AXETIL 250 MG TAB PO SCH ×2 (12:34→21:34)
[2016-08-31] MEDS: HEPARIN-D5W INJ 250 ML IV SCH (19:15)
[2016-08-31 19:28] LABS: HEMATOCRIT 26.9 % (35.0-46.0); REVIEW FLAG FINAL
[2016-08-31] MEDS: ATORVASTATIN 40 MG TAB PO SCH (21:00)
[2016-08-31] MEDS: DONEPEZIL HCL 5 MG TAB PO SCH (21:34)
[2016-08-31] MEDS: SODIUM CHLOR 0.9% 1000 ML INJ 1,000 ML IV SCH (21:36)
[2016-09-01] VITALS (10 sets, daily range): BP systolic 95–143; BP diastolic 50–65; PULSE 70–89; RESP 18–24; TEMP 98–99; O2SAT 95–100
[2016-09-01] MEDS: ISOSORBIDE MONONITRATE 60 MG TAB PO SCH (08:22)
[2016-09-01] MEDS: CEFUROXIME AXETIL 250 MG TAB PO SCH ×2 (08:22→20:49)
[2016-09-01] MEDS: DOCUSATE SODIUM 100 MG CAP PO SCH ×2 (08:22→20:49)
[2016-09-01] MEDS: ARTIFICIAL TEARS OPTH SOLN 15 ML BTL EACH EYE SCH ×3 (08:22→17:43)
[2016-09-01] MEDS: SERTRALINE HCL 50 MG TAB PO SCH (08:23)
[2016-09-01] MEDS: MEMANTINE HCL 10 MG TAB PO SCH ×2 (08:23→20:49)
[2016-09-01] MEDS: QUEtiapine FUMARATE 25 MG TAB PO SCH ×2 (08:23→20:49)
[2016-09-01] MEDS: ATENOLOL 25 MG TAB PO SCH (08:24)
--- NOTE | 2016-09-01 08:24 | HHI.PR ---
Subjective Remarks not a good historian. in no acute distress. has some pain to the abdomen. no fever. d/w the RN. Objective Vitals Vital Signs Date Time Temp Pulse Resp B/P Pulse Ox O2 Delivery O2 Flow Rate FiO2 09/01/16 07:56 99 21 09/01/16 06:00 71 09/01/16 04:00 70 09/01/16 04:00 98.8 70 22 143/65 97 09/01/16 02:00 70 09/01/16 00:00 88 09/01/16 00:00 99.0 88 19 137/64 99 08/31/16 22:00 85 08/31/16 20:22 100 08/31/16 20:00 82 25 151/72 100 08/31/16 20:00 82 08/31/16 19:45 99.2 08/31/16 16:00 98.4 73 20 141/64 99 08/31/16 16:00 73 08/31/16 12:00 98.0 73 16 114/63 100 08/31/16 12:00 75 I/O 08/31/16 08/31/16 08/31/16 09/01/16 09/01/16 09/01/16 07:00 15:00 23:00 07:00 15:00 23:00 Intake Total 96 ml 277 ml 936 ml 607 ml Output Total 250 ml 200 ml 625 ml 275 ml Balance -154 ml 77 ml 311 ml 332 ml Intake Oral 180 ml 440 ml 150 ml IV Total 96 ml 97 ml 496 ml 457 ml Output Urine Total 250 ml 200 ml 625 ml 275 ml # Bowel Movements 0 Result Diagram: 08/31/16192108/31/16 0149 Imaging Last Impressions Chest X-Ray 08/29/16 0000 Signed Impressions: Service Date/Time: Monday, August 29, 2016 10:57 - CONCLUSION: Stable chest appearance with no acute disease Ruben Castro MD Abdomen/Pelvis CT 08/28/16 0000 Signed Impressions: Service Date/Time: Sunday, August 28, 2016 10:20 - CONCLUSION: 1. Rectus sheath hematoma the left appears unchanged. 2. Bilateral renal cysts. There is a small subcentimeter indeterminate lesion left mid kidney. Long-term followup recommended. 3. Diverticulosis of the colon without diverticulitis. Ray Vizcarra MD Head CT 08/27/16 0000 Signed Impressions: Service Date/Time: Saturday, August 27, 2016 11:42 - CONCLUSION: Atrophy. No acute intracranial process. Wang Marin MD Objective Remarks GENERAL: This is a well-nourished, well-developed patient, in no apparent distress. CARDIOVASCULAR: Regular rate and regular rhythm without murmurs, gallops, or rubs. RESPIRATORY: Clear to auscultation. Breath sounds equal bilaterally. No wheezes , rales, or rhonchi. GASTROINTESTINAL: Abdomen soft, non-tender, nondistended. Normal, active bowel sounds MUSCULOSKELETAL: Extremities without clubbing, cyanosis, or edema. NEURO: awake but not oriented to time or place Procedures none Medications and IVs Current Medications Sodium Chloride (NS 1000 ml Inj) 1,000 ml @ 84 mls/hr [id number] IV Last administered on 08/27/16 18:59; Start 08/27/16 at 11:00; Stop 08/28/16 at 08:42 ; Status DC IV Flush (NS Flush) 2 ml UNSCH PRN IV FLUSH FLUSH AFTER USING IV ACCESS; Start 08/27/16 at 10:30 IV Flush (NS Flush) 2 ml BID IV FLUSH Last administered on 08/31/16 21:34; Start 08/27/16 at 21:00 Acetaminophen (Tylenol) 650 mg Q6H PRN PO PAIN 1-3, FEVER >101F; Start at 10:30 Acetaminophen/ Hydrocodone Bitart ([place] 5-325 Mg) 1 tab Q4H PRN PO PAIN SCALE 1 TO 5 Last administered on 08/28/16 23:01; Start 08/27/16 at 10:30 Morphine Sulfate (Morphine Inj) 2 mg Q2H PRN IV PAIN SCALE 6 TO 10 Last administered on 09/01/16 01:23; Start 08/27/16 at 10:30 Pantoprazole Sodium (Protonix Inj) 40 mg DAILY IV Last administered on 09:00; Start 08/28/16 at 09:00; Stop 08/29/16 at 08:38; Status DC Artificial Tears (Tears Naturale Opth Soln) 1 drop TID EACH EYE Last administered on 08/31/16 19:25; Start 08/27/16 at 13:00 Ondansetron HCl (Zofran Inj) 4 mg Q6H PRN IV NAUSEA OR VOMITING; Start at 10:30 Docusate Sodium (Colace) 100 mg BID PO Last administered on 08/31/16 21:34; Start 08/27/16 at 21:00 Sennosides (Senokot) 17.2 mg Q12H PRN PO CONSTIPATION; Start 08/27/16 at 10:30 Albuterol/ Ipratropium (Duoneb Neb) 1 ampule Q2HR NEB PRN INH WHEEZING; Start 08/27/16 at 10:30 Miscellaneous Information 1 Q361D XX ; Start 08/27/16 at 10:30 Chlorhexidine Gluconate (Chlorhexidine 2% Cloth) 3 pack Taper DAILY@04 TOP Last administered on 08/31/16 21:35; Start 08/28/16 at 04:00; Stop 08/24/17 at 03:59 Chlorhexidine Gluconate (Chlorhexidine 2% Cloth) 3 pack UNSCH PRN TOP HYGIENIC CARE; Start 08/27/16 at 10:30 Dextrose (D50w (Vial) Inj) 25 ml UNSCH PRN IV PUSH HYPOGLYCEMIA-SEE COMMENTS; Start 08/27/16 at 10:30 Glucagon (Glucagon Inj) 1 mg UNSCH PRN OTHER HYPOGLYCEMIA-SEE COMMENTS; Start 08/27/16 at 10:30 Insulin Human Regular (NovoLIN R SUPPLEMENTAL SCALE) 1 ACHS SLIDING SCALE SQ ; Start 08/27/16 at 11:00; Stop 08/29/16 at 08:38; Status DC Sertraline HCl (Zoloft) 25 mg DAILY PO ; Start 08/28/16 at 09:00; Status UNV Quetiapine Fumarate (SEROquel) 25 mg BID PO Last administered on 08/31/16 21: 34; Start 08/27/16 at 21:00 Donepezil HCl (Aricept) 10 mg DAILY PO ; Start 08/28/16 at 09:00; Stop 08/28/16 at 09:00; Status DC Donepezil HCl (Aricept) 10 mg HS PO Last administered on 08/31/16 21:34; Start 08/27/16 at 21:00 Memantine (Namenda) 10 mg BID PO Last administered on 08/31/16 21:34; Start at 21:00 Quetiapine Fumarate (SEROquel) 25 mg DAILY PO ; Start 08/28/16 at 09:00; Stop at 09:00; Status DC Sertraline HCl 25 mg 25 mg DAILY PO Last administered on 08/31/16 08:59; Start 08/28/16 at 09:00 Sodium Chloride (NS 1000 ml Inj) 1,000 ml @ 70 mls/hr [id number] IV ; Start at 11:00; Stop 08/27/16 at 11:01; Status DC Acetaminophen 325 mg 325 mg Q4H PRN RECTAL Pain 1-3 T > 101 > 101; Start at 11:00 Sodium Phosphate/ Sodium Chloride (Sodium Phosphate Inj/NS Inj) 155 ml @ 38.75 mls/ hr ONCE ONCE IV Last administered on 08/27/16 13:36; Start 08/27/16 at 13:00; Stop 08/27/16 at 16:59; Status DC Phytonadione (Mephyton) 5 mg ONCE ONCE PO Last administered on 08/27/16 12:45 ; Start 08/27/16 at 12:45; Stop 08/27/16 at 12:46; Status DC Protamine Sulfate (Protamine Sulfate Inj) 25 mg ONCE ONCE IV PUSH Last administered on 08/27/16 15:30; Start 08/27/16 at 15:15; Stop 08/27/16 at 15:18 ; Status DC Furosemide 20 mg 20 mg ONCE ONCE IV PUSH Last administered on 08/28/16 11:43 ; Start 08/28/16 at 10:00; Stop 08/28/16 at 10:01; Status DC Potassium Chloride 10 meq/ Sodium Chloride 1,005 ml @ 75 mls/hr [id number] IV Last administered on 08/29/16 03:38; Start 08/28/16 at 11:00; Stop 08/29/16 at 08:38; Status DC Potassium Chloride 100 ml @ 50 mls/hr Q2H PRN IV For Potassium 2.8 - 3.2 mEq/L ; Start 08/29/16 at 08:45; Stop 08/30/16 at 11:48; Status DC Potassium Chloride (KCl 20 Meq Premix Inj) 100 ml @ 50 mls/hr Q2H PRN IV For Potassium 2.8 - 3.2 mEq/L; Start 08/29/16 at 08:45; Stop 08/30/16 at 11:48; Status DC Potassium Chloride 40 meq 40 meq UNSCH PRN PO/TUBE For Potassium 3.3 - 3.5 mEq/ L Last administered on 08/29/16 09:18; Start 08/29/16 at 08:45; Stop 08/30/16 at 11:48; Status DC Potassium Chloride 100 ml @ 25 mls/hr UNSCH PRN IV For Potassium 3.3 - 3.5 mEq /L; Start 08/29/16 at 08:45; Stop 08/30/16 at 11:48; Status DC Potassium Chloride 100 ml @ 50 mls/hr Q2H PRN IV For Potassium 3.3 - 3.5 mEq/L ; Start 08/29/16 at 08:45; Stop 08/30/16 at 11:49; Status DC Magnesium Sulfate/ Sodium Chloride (Magnesium Sulfate Inj/NS Inj) 100 ml @ 50 mls/hr UNSCH PRN IV For Magnesium 0.9 - 1.1 mg/dL; Start 08/29/16 at 08:45; Stop 08/30/16 at 11:49; Status DC Magnesium Oxide 800 mg 800 mg UNSCH PRN PO For Magnesium 1.2 - 1.6 mg/dL; Start 08/29/16 at 08:45; Stop 08/30/16 at 11:49; Status DC Magnesium Sulfate/ Sodium Chloride (Magnesium Sulfate Inj/NS Inj) 100 ml @ 50 mls/hr UNSCH PRN IV For Magnesium 1.2 - 1.6 mg/dL; Start 08/29/16 at 08:45; Stop 08/30/16 at 11:49; Status DC Potassium Phosphate 2000 mg 2,000 mg Q4H PRN PO For Phosphorus < 2.5 mg/dL; Start 08/29/16 at 08:45; Stop 08/30/16 at 11:50; Status DC Sodium Phosphate/ Sodium Chloride (Sodium Phosphate Inj/NS 250 ml Inj) 250 ml @ 42 mls/hr UNSCH PRN IV For Phosphorus < 2.5 mg/dL Last administered on t 15:57; Start 08/29/16 at 08:45; Stop 08/30/16 at 11:50; Status DC Potassium Chloride (KCl 40 Meq/30 ml Liq) 40 meq UNSCH PRN PO/TUBE SEE LABEL COMMENTS; Start 08/29/16 at 08:45; Stop 08/30/16 at 11:50; Status DC Potassium Phosphate 2000 mg 2,000 mg UNSCH PRN PO/TUBE SEE LABEL COMMENTS; Start 08/29/16 at 08:45; Stop 08/30/16 at 11:50; Status DC Potassium Phosphate/Sodium Chloride (Potassium Phosphate Inj/NS 250 ml Inj) 260 ml @ 42 mls/hr UNSCH PRN IV SEE LABEL COMMENTS; Start 08/29/16 at 08:45; Stop 08/30/16 at 11:50; Status DC Hydralazine HCl (Apresoline Inj) 10 mg Q6H PRN IV SBP> OR = 180, DBP> OR = 100 Last administered on 09/01/16 06:21; Start 08/29/16 at 08:45 Clonidine 0.1 mg 0.1 mg Q6H PRN PO SBP> OR = 180, DBP> OR = 100; Start at 08:45 Heparin Sodium/ Dextrose (Heparin-D5W Inj) 250 ml @ 0 mls/hr TITRATE IV Last administered on 08/31/16 19:15; Start 08/30/16 at 07:45 Atenolol (Tenormin) 12.5 mg DAILY PO Last administered on 08/31/16 09:00; Start 08/30/16 at 12:00 Atorvastatin Calcium (Lipitor) 40 mg HS PO Last administered on 08/31/16 21:00 ; Start 08/30/16 at 21:00 Isosorbide Mononitrate (Imdur) 60 mg DAILY PO Last administered on 08/31/16 09 :00; Start 08/31/16 at 09:00 Miscellaneous (Pill Splitter) 1 ea UNSCH PRN OTHER SEE LABEL COMMENTS; Start at 12:00 Cefuroxime Axetil 250 mg 250 mg Q12HR PO Last administered on 08/31/16 21:34; Start 08/31/16 at 09:00; Stop 09/07/16 at 08:59 Sodium Chloride (NS 1000 ml Inj) 1,000 ml @ 60 mls/hr [id number] IV Last administered on 08/31/16t 21:36; Start 08/31/16 at 16:00 A/P Assessment and Plan A/P Dementia disorder Behavioral disturbance NOS Continue Seroquel 25 mg by mouth twice daily for anxiety as indicated Continue Namenda 10 mg twice a day and Aricept 10 mg at night for dementia Continue sertraline 25 mg by mouth daily for depression continue Aricept Neuro checks Acetaminophen for fever [place]/morphine for pain management Psychiatry has accepted patient once medically clear History of hypertension History dyslipidemia History of aVR History of coronary disease status post CABG Elevated HDL 2-D echocardiogram is ordered. Results are as expected with AV prosthesis Holding lisinopril 2.5 mg daily light of acute kidney injury. Resume when clinically indicated Holding aspirin 81 mg by mouth daily in light of hematoma Anti-hypertensives as needed. Restart atenolol and Imdur with hold parameters. Also restart Lipitor. Anticoagulation with IV heparin to be continued but hold Coumadin per heme recommendations Rectus sheath hematoma. Stable Patient to continue regular diet Colace/as needed Senokot for bowel regimen CT abdomen/posterior left rectus sheath hematoma which is stable on repeat CT. previously discussed with family and patient, agrees with starting anticoagulation with heparin drip and Coumadin secondary to increased risk for thrombosis. Benefits outweigh risks at this time since anemia and hematoma stable. Hold Coumadin for now Urinary retention. Spencer catheter reinserted. Spencer care Acute kidney injury Avoid nephrotoxic drugs Lisinopril be held Accurate I/Os Monitor urine output Heme: Anemia Thrombocytopenia Coumadin use Patient did receive bridging dose of Lovenox 50 mg subcutaneous twice a day for "bridging" while INR subtherapeutic for aVR however currently has abdominal wall hematoma. Received 2 units FFP and 25 mg protamine since factor X levels will take greater than 2 days return at this facility 1 unit PRBCs and 2 FFP given Coumadin currently on hold hematology following. Gram-negative yahaira UTI. Started Ceftin. Blood cultures 2 negative to date Hypernatremia. Improved Replace electrolytes as clinically indicated PT evaluate and treat Prophylaxis - GI - Protonix - DVT - SCD/pharmacological prophylaxis/ on heparin drip Mele Ashton MD Sep 01, 2016 08:24
[2016-09-01] MEDS: SODIUM CHLOR 0.9% 1000 ML INJ 1,000 ML IV SCH (08:25)
[2016-09-01] MEDS: SODIUM CHLORIDE 0.9% FLUSH 5 ML FLUSH IV FLUSH SCH ×2 (08:26→20:49)
[2016-09-01 09:14] LABS: AUTOMATED NEUTROPHIL # 5.3 TH/MM3 (1.8-7.7); BASOPHIL % 0.3 % (0.0-2.0); EOSINOPHIL # 0.1 TH/MM3 (0-0.4); EOSINOPHIL % 1.4 % (0.0-4.0); HEMATOCRIT 29.3 % (35.0-46.0); LYMPH % 14.8 % (9.0-44.0); LYMPHOCYTE # 1.1 TH/MM3 (1.0-4.8); MEAN CELL VOLUME 92.6 FL (80.0-100.0); MEAN CORPUSCULAR HEMOGLOBIN 31.2 PG (27.0-34.0); MEAN CORPUSCULAR HGB CONC 33.7 % (32.0-36.0); NEUT % 74.5 % (16.0-70.0); PLATELET COUNT 220 TH/MM3 (150-450); RED BLOOD COUNT 3.16 MIL/MM3 (4.00-5.30); RED CELL DISTRIBUTION WIDTH 14.8 % (11.6-17.2); WHITE BLOOD COUNT 7.1 TH/MM3 (4.0-11.0)
[2016-09-01 09:18] LABS: APTT (PATIENT) 60.9 SEC (24.3-30.1)
[2016-09-01 09:20] LABS: HEMO FLAGS AUTO DIFF
[2016-09-01 09:30] LABS: BICARBONATE 24.5 MEQ/L (21.0-32.0); MAGNESIUM 1.9 MG/DL (1.5-2.5); POTASSIUM 3.2 MEQ/L (3.5-5.1)
[2016-09-01 10:06] LABS: CORRECTED NUCLEATED RBC 1 /100 WBC (0-0); MYELOCYTES 2 % (0-0); NEUTROPHIL # MANUAL DIFF 5.3 TH/MM3 (1.8-7.7); OVALOCYTES 1+ (NORMAL); PLATELET ESTIMATE SMEAR NORMAL (NORMAL); PLATELET MORPHOLOGY NORMAL (NORMAL); POLYS (SEG NEUTROPHILS) 72 % (16-70); SCAN/DIFF FINAL DIFF MANUAL; WBC DIFF SAMPLE 100
[2016-09-01 19:26] LABS: HEMATOCRIT 27.5 % (35.0-46.0); REVIEW FLAG FINAL
[2016-09-01] MEDS: ATORVASTATIN 40 MG TAB PO SCH (20:49)
[2016-09-01] MEDS: DONEPEZIL HCL 5 MG TAB PO SCH (20:49)
[2016-09-02] VITALS (8 sets, daily range): BP systolic 136–162; BP diastolic 63–78; PULSE 60–82; RESP 16–22; TEMP 97.5–100; O2SAT 92–99
[2016-09-02] MEDS: CHLORHEXIDINE GLUCONATE 2 % 1 PACK (2 CLOTHS) TOP SCH (04:00)
[2016-09-02] MEDS: QUEtiapine FUMARATE 25 MG TAB PO SCH ×2 (10:00→21:07)
[2016-09-02] MEDS: SERTRALINE HCL 50 MG TAB PO SCH (10:00)
[2016-09-02] MEDS: ISOSORBIDE MONONITRATE 60 MG TAB PO SCH (10:01)
[2016-09-02] MEDS: CEFUROXIME AXETIL 250 MG TAB PO SCH ×2 (10:01→21:07)
[2016-09-02] MEDS: SODIUM CHLORIDE 0.9% FLUSH 5 ML FLUSH IV FLUSH SCH ×2 (10:01→21:07)
[2016-09-02] MEDS: ARTIFICIAL TEARS OPTH SOLN 15 ML BTL EACH EYE SCH ×3 (10:01→17:02)
[2016-09-02] MEDS: DOCUSATE SODIUM 100 MG CAP PO SCH ×2 (10:01→21:07)
[2016-09-02] MEDS: ATENOLOL 25 MG TAB PO SCH (10:01)
[2016-09-02] MEDS: SODIUM CHLOR 0.9% 1000 ML INJ 1,000 ML IV SCH (10:01)
--- NOTE | 2016-09-02 10:04 | HHI.PR ---
Subjective Remarks resting comfortably with no distress. denies pain. no fever. d/w the RN; at times confused-no other acute issues over night. Objective Vitals Vital Signs Date Time Temp Pulse Resp B/P Pulse Ox O2 Delivery O2 Flow Rate FiO2 09/02/16 08:00 98.4 75 20 158/68 99 09/02/16 04:00 98.2 67 16 142/76 97 09/02/16 00:00 98.1 60 16 136/63 97 09/01/16 20:00 98.5 72 18 124/57 96 09/01/16 20:00 72 09/01/16 16:12 98.6 74 18 136/61 95 09/01/16 13:51 98.3 75 18 122/56 95 09/01/16 12:00 81 09/01/16 12:00 98.0 81 24 95/50 100 I/O 09/01/16 09/01/16 09/01/16 09/02/16 09/02/16 09/02/16 07:00 15:00 23:00 07:00 15:00 23:00 Intake Total 607 ml 750 ml 544 ml Output Total 275 ml 300 ml Balance 332 ml 750 ml 244 ml Intake Oral 150 ml 120 ml IV Total 457 ml 713 ml 361 ml Other 37 ml 63 ml Output Urine Total 275 ml 300 ml # Bowel Movements 0 Result Diagram: 09/01/16 1904 09/01/16 0843 Imaging Last Impressions Chest X-Ray 08/29/16 0000 Signed Impressions: Service Date/Time: Monday, August 29, 2016 10:57 - CONCLUSION: Stable chest appearance with no acute disease Ruben Castro MD Abdomen/Pelvis CT 08/28/16 0000 Signed Impressions: Service Date/Time: Sunday, August 28, 2016 10:20 - CONCLUSION: 1. Rectus sheath hematoma the left appears unchanged. 2. Bilateral renal cysts. There is a small subcentimeter indeterminate lesion left mid kidney. Long-term followup recommended. 3. Diverticulosis of the colon without diverticulitis. Ray Vizcarra MD Head CT 08/27/16 0000 Signed Impressions: Service Date/Time: Saturday, August 27, 2016 11:42 - CONCLUSION: Atrophy. No acute intracranial process. Wang Marin MD Objective Remarks GENERAL: This is a well-nourished, well-developed patient, in no apparent distress. CARDIOVASCULAR: Regular rate and regular rhythm without murmurs, gallops, or rubs. RESPIRATORY: Clear to auscultation. Breath sounds equal bilaterally. No wheezes , rales, or rhonchi. GASTROINTESTINAL: Abdomen soft, non-tender, nondistended. Normal, active bowel sounds MUSCULOSKELETAL: Extremities without clubbing, cyanosis, or edema. NEURO: awake and alert- oriented to person and partly to place Procedures none Medications and IVs Current Medications Sodium Chloride (NS 1000 ml Inj) 1,000 ml @ 84 mls/hr [id number] IV Last administered on 08/27/16 18:59; Start 08/27/16 at 11:00; Stop 08/28/16 at 08:42 ; Status DC IV Flush (NS Flush) 2 ml UNSCH PRN IV FLUSH FLUSH AFTER USING IV ACCESS; Start 08/27/16 at 10:30 IV Flush (NS Flush) 2 ml BID IV FLUSH Last administered on 09/01/16 20:49; Start 08/27/16 at 21:00 Acetaminophen (Tylenol) 650 mg Q6H PRN PO PAIN 1-3, FEVER >101F; Start at 10:30 Acetaminophen/ Hydrocodone Bitart ([place] 5-325 Mg) 1 tab Q4H PRN PO PAIN SCALE 1 TO 5 Last administered on 08/28/16 23:01; Start 08/27/16 at 10:30 Morphine Sulfate (Morphine Inj) 2 mg Q2H PRN IV PAIN SCALE 6 TO 10 Last administered on 09/01/16 01:23; Start 08/27/16 at 10:30 Pantoprazole Sodium (Protonix Inj) 40 mg DAILY IV Last administered on 09:00; Start 08/28/16 at 09:00; Stop 08/29/16 at 08:38; Status DC Artificial Tears (Tears Naturale Opth Soln) 1 drop TID EACH EYE Last administered on 09/01/16 17:43; Start 08/27/16 at 13:00 Ondansetron HCl (Zofran Inj) 4 mg Q6H PRN IV NAUSEA OR VOMITING; Start at 10:30 Docusate Sodium (Colace) 100 mg BID PO Last administered on 09/01/16 20:49; Start 08/27/16 at 21:00 Sennosides (Senokot) 17.2 mg Q12H PRN PO CONSTIPATION; Start 08/27/16 at 10:30 Albuterol/ Ipratropium (Duoneb Neb) 1 ampule Q2HR NEB PRN INH WHEEZING; Start 08/27/16 at 10:30 Miscellaneous Information 1 Q361D XX ; Start 08/27/16 at 10:30 Chlorhexidine Gluconate (Chlorhexidine 2% Cloth) Taper DAILY@04 TOP Last administered on 08/31/16 21:35; Start 08/28/16 at 04:00; Stop 08/24/17 at 03:59 Chlorhexidine Gluconate (Chlorhexidine 2% Cloth) 3 pack UNSCH PRN TOP HYGIENIC CARE; Start 08/27/16 at 10:30 Dextrose (D50w (Vial) Inj) 25 ml UNSCH PRN IV PUSH HYPOGLYCEMIA-SEE COMMENTS; Start 08/27/16 at 10:30 Glucagon (Glucagon Inj) 1 mg UNSCH PRN OTHER HYPOGLYCEMIA-SEE COMMENTS; Start 08/27/16 at 10:30 Insulin Human Regular (NovoLIN R SUPPLEMENTAL SCALE) 1 ACHS SLIDING SCALE SQ ; Start 08/27/16 at 11:00; Stop 08/29/16 at 08:38; Status DC Sertraline HCl (Zoloft) 25 mg DAILY PO ; Start 08/28/16 at 09:00; Status UNV Quetiapine Fumarate (SEROquel) 25 mg BID PO Last administered on 09/01/16 20: 49; Start 08/27/16 at 21:00 Donepezil HCl (Aricept) 10 mg DAILY PO ; Start 08/28/16 at 09:00; Stop 08/28/16 at 09:00; Status DC Donepezil HCl (Aricept) 10 mg HS PO Last administered on 09/01/16 20:49; Start 08/27/16 at 21:00 Memantine (Namenda) 10 mg BID PO Last administered on 09/01/16 20:49; Start at 21:00 Quetiapine Fumarate (SEROquel) 25 mg DAILY PO ; Start 08/28/16 at 09:00; Stop at 09:00; Status DC Sertraline HCl 25 mg 25 mg DAILY PO Last administered on 09/01/16 08:23; Start 08/28/16 at 09:00 Sodium Chloride (NS 1000 ml Inj) 1,000 ml @ 70 mls/hr [id number] IV ; Start at 11:00; Stop 08/27/16 at 11:01; Status DC Acetaminophen 325 mg 325 mg Q4H PRN RECTAL Pain 1-3 T > 101 > 101; Start at 11:00 Sodium Phosphate/ Sodium Chloride (Sodium Phosphate Inj/NS Inj) 155 ml @ 38.75 mls/ hr ONCE ONCE IV Last administered on 08/27/16 13:36; Start 08/27/16 at 13:00; Stop 08/27/16 at 16:59; Status DC Phytonadione (Mephyton) 5 mg ONCE ONCE PO Last administered on 08/27/16 12:45 ; Start 08/27/16 at 12:45; Stop 08/27/16 at 12:46; Status DC Protamine Sulfate (Protamine Sulfate Inj) 25 mg ONCE ONCE IV PUSH Last administered on 08/27/16 15:30; Start 08/27/16 at 15:15; Stop 08/27/16 at 15:18 ; Status DC Furosemide 20 mg 20 mg ONCE ONCE IV PUSH Last administered on 08/28/16 11:43 ; Start 08/28/16 at 10:00; Stop 08/28/16 at 10:01; Status DC Potassium Chloride 10 meq/ Sodium Chloride 1,005 ml @ 75 mls/hr [id number] IV Last administered on 08/29/16 03:38; Start 08/28/16 at 11:00; Stop 08/29/16 at 08:38; Status DC Potassium Chloride 100 ml @ 50 mls/hr Q2H PRN IV For Potassium 2.8 - 3.2 mEq/L ; Start 08/29/16 at 08:45; Stop 08/30/16 at 11:48; Status DC Potassium Chloride (KCl 20 Meq Premix Inj) 100 ml @ 50 mls/hr Q2H PRN IV For Potassium 2.8 - 3.2 mEq/L; Start 08/29/16 at 08:45; Stop 08/30/16 at 11:48; Status DC Potassium Chloride 40 meq 40 meq UNSCH PRN PO/TUBE For Potassium 3.3 - 3.5 mEq/ L Last administered on 08/29/16 09:18; Start 08/29/16 at 08:45; Stop 08/30/16 at 11:48; Status DC Potassium Chloride 100 ml @ 25 mls/hr UNSCH PRN IV For Potassium 3.3 - 3.5 mEq /L; Start 08/29/16 at 08:45; Stop 08/30/16 at 11:48; Status DC Potassium Chloride 100 ml @ 50 mls/hr Q2H PRN IV For Potassium 3.3 - 3.5 mEq/L ; Start 08/29/16 at 08:45; Stop 08/30/16 at 11:49; Status DC Magnesium Sulfate/ Sodium Chloride (Magnesium Sulfate Inj/NS Inj) 100 ml @ 50 mls/hr UNSCH PRN IV For Magnesium 0.9 - 1.1 mg/dL; Start 08/29/16 at 08:45; Stop 08/30/16 at 11:49; Status DC Magnesium Oxide 800 mg 800 mg UNSCH PRN PO For Magnesium 1.2 - 1.6 mg/dL; Start 08/29/16 at 08:45; Stop 08/30/16 at 11:49; Status DC Magnesium Sulfate/ Sodium Chloride (Magnesium Sulfate Inj/NS Inj) 100 ml @ 50 mls/hr UNSCH PRN IV For Magnesium 1.2 - 1.6 mg/dL; Start 08/29/16 at 08:45; Stop 08/30/16 at 11:49; Status DC Potassium Phosphate 2000 mg 2,000 mg Q4H PRN PO For Phosphorus < 2.5 mg/dL; Start 08/29/16 at 08:45; Stop 08/30/16 at 11:50; Status DC Sodium Phosphate/ Sodium Chloride (Sodium Phosphate Inj/NS 250 ml Inj) 250 ml @ 42 mls/hr UNSCH PRN IV For Phosphorus < 2.5 mg/dL Last administered on 15:57; Start 08/29/16 at 08:45; Stop 08/30/16 at 11:50; Status DC Potassium Chloride (KCl 40 Meq/30 ml Liq) 40 meq UNSCH PRN PO/TUBE SEE LABEL COMMENTS; Start 08/29/16 at 08:45; Stop 08/30/16 at 11:50; Status DC Potassium Phosphate 2000 mg 2,000 mg UNSCH PRN PO/TUBE SEE LABEL COMMENTS; Start 08/29/16 at 08:45; Stop 08/30/16 at 11:50; Status DC Potassium Phosphate/Sodium Chloride (Potassium Phosphate Inj/NS 250 ml Inj) 260 ml @ 42 mls/hr UNSCH PRN IV SEE LABEL COMMENTS; Start 08/29/16 at 08:45; Stop 08/30/16 at 11:50; Status DC Hydralazine HCl (Apresoline Inj) 10 mg Q6H PRN IV SBP> OR = 180, DBP> OR = 100 Last administered on 09/01/16 06:21; Start 08/29/16 at 08:45 Clonidine 0.1 mg 0.1 mg Q6H PRN PO SBP> OR = 180, DBP> OR = 100; Start at 08:45 Heparin Sodium/ Dextrose (Heparin-D5W Inj) 250 ml @ 0 mls/hr TITRATE IV Last administered on 08/31/16 19:15; Start 08/30/16 at 07:45 Atenolol (Tenormin) 12.5 mg DAILY PO Last administered on 09/01/16 08:24; Start 08/30/16 at 12:00 Atorvastatin Calcium (Lipitor) 40 mg HS PO Last administered on 09/01/16 20:49 ; Start 08/30/16 at 21:00 Isosorbide Mononitrate (Imdur) 60 mg DAILY PO Last administered on 09/01/16 08 :22; Start 08/31/16 at 09:00 Miscellaneous (Pill Splitter) 1 ea UNSCH PRN OTHER SEE LABEL COMMENTS; Start at 12:00 Cefuroxime Axetil 250 mg 250 mg Q12HR PO Last administered on 09/01/16 20:49; Start 08/31/16 at 09:00; Stop 09/07/16 at 08:59 Sodium Chloride (NS 1000 ml Inj) 1,000 ml @ 40 mls/hr Q24H IV Last administered on 09/01/16 08:25; Start 08/31/16 at 16:00 A/P Assessment and Plan A/P Dementia disorder Behavioral disturbance NOS Continue Seroquel 25 mg by mouth twice daily for anxiety as indicated Continue Namenda 10 mg twice a day and Aricept 10 mg at night for dementia Continue sertraline 25 mg by mouth daily for depression continue Aricept Neuro checks Acetaminophen for fever [place]/morphine for pain management Psychiatry has accepted patient once medically clear History of hypertension History dyslipidemia History of aVR History of coronary disease status post CABG Elevated HDL 2-D echocardiogram is ordered. Results are as expected with AV prosthesis Holding lisinopril 2.5 mg daily light of acute kidney injury. Resume when clinically indicated Holding aspirin 81 mg by mouth daily in light of hematoma Anti-hypertensives as needed. Restart atenolol and Imdur with hold parameters. Also restart Lipitor. Anticoagulation with IV heparin to be continued but hold Coumadin per heme recommendations Rectus sheath hematoma. Stable Patient to continue regular diet Colace/as needed Senokot for bowel regimen CT abdomen/posterior left rectus sheath hematoma which is stable on repeat CT. previously discussed with family and patient, agrees with starting anticoagulation with heparin drip and Coumadin secondary to increased risk for thrombosis. Benefits outweigh risks at this time since anemia and hematoma stable. Hold Coumadin for now Urinary retention. Spencer catheter reinserted. Spencer care Acute kidney injury-improved Avoid nephrotoxic drugs Lisinopril be held Accurate I/Os Monitor urine output Anemia Thrombocytopenia Coumadin use Patient did receive bridging dose of Lovenox 50 mg subcutaneous twice a day for "bridging" while INR subtherapeutic for aVR however currently has abdominal wall hematoma. Received 2 units FFP and 25 mg protamine since factor X levels will take greater than 2 days return at this facility 1 unit PRBCs and 2 FFP given Coumadin currently on hold hematology following. Gram-negative yahaira UTI. Started Ceftin. Blood cultures 2 negative to date Hypernatremia. Improved Replace electrolytes as clinically indicated PT evaluate and treat Prophylaxis - GI - Protonix - DVT - SCD/pharmacological prophylaxis/ on heparin drip Discharge Planning dc to psych unit when off heparin drip and ok with hematology. Mele Ashton MD Sep 02, 2016 10:04
[2016-09-02] MEDS: HEPARIN-D5W INJ 250 ML IV SCH (10:14)
[2016-09-02 10:35] LABS: HEMATOCRIT 25.6 % (35.0-46.0); MEAN CELL VOLUME 91.4 FL (80.0-100.0); MEAN CORPUSCULAR HEMOGLOBIN 31.6 PG (27.0-34.0); MEAN CORPUSCULAR HGB CONC 34.5 % (32.0-36.0); PLATELET COUNT 219 TH/MM3 (150-450); RED CELL DISTRIBUTION WIDTH 14.8 % (11.6-17.2); REVIEW FLAG FINAL; WHITE BLOOD COUNT 5.5 TH/MM3 (4.0-11.0)
[2016-09-02] MEDS: MEMANTINE HCL 10 MG TAB PO SCH ×2 (12:39→21:07)
[2016-09-02 14:20] LABS: APTT (PATIENT) 50.2 SEC (24.3-30.1)
[2016-09-02] MEDS: ATORVASTATIN 40 MG TAB PO SCH (21:00)
[2016-09-02] MEDS: DONEPEZIL HCL 5 MG TAB PO SCH (21:07)
[2016-09-03] VITALS (9 sets, daily range): BP systolic 96–195; BP diastolic 60–84; PULSE 67–103; RESP 18–22; TEMP 97.7–98.6; O2SAT 94–96
[2016-09-03] MEDS: CHLORHEXIDINE GLUCONATE 2 % 1 PACK (2 CLOTHS) TOP SCH (04:00)
[2016-09-03 09:06] LABS: HEMATOCRIT 29.5 % (35.0-46.0)
[2016-09-03 09:14] LABS: APTT (PATIENT) 49.7 SEC (24.3-30.1)
[2016-09-03] MEDS: SERTRALINE HCL 50 MG TAB PO SCH (09:17)
[2016-09-03] MEDS: DOCUSATE SODIUM 100 MG CAP PO SCH ×2 (09:17→21:00)
[2016-09-03] MEDS: CEFUROXIME AXETIL 250 MG TAB PO SCH ×2 (09:17→21:00)
[2016-09-03] MEDS: ATENOLOL 25 MG TAB PO SCH (09:17)
[2016-09-03] MEDS: MEMANTINE HCL 10 MG TAB PO SCH ×2 (09:17→21:00)
[2016-09-03] MEDS: QUEtiapine FUMARATE 25 MG TAB PO SCH ×2 (09:17→21:00)
[2016-09-03] MEDS: ISOSORBIDE MONONITRATE 60 MG TAB PO SCH (09:17)
[2016-09-03] MEDS: SODIUM CHLORIDE 0.9% FLUSH 5 ML FLUSH IV FLUSH SCH ×2 (09:18→21:00)
[2016-09-03] MEDS: ARTIFICIAL TEARS OPTH SOLN 15 ML BTL EACH EYE SCH ×3 (09:20→17:07)
[2016-09-03] MEDS: SODIUM CHLOR 0.9% 1000 ML INJ 1,000 ML IV SCH (09:23)
--- NOTE | 2016-09-03 10:54 | PD.ONC.PN ---
Subjective Subjective Remarks Tmax 100F overnight. patient resting comfortably. No family members at bedside. Objective Data Date Time Temp Pulse Resp B/P Pulse Ox O2 Delivery O2 Flow Rate FiO2 09/03/16 08:27 95 21 09/03/16 08:07 98.5 93 20 164/70 95 09/03/16 04:00 97.7 86 22 96/60 96 09/03/16 00:00 98.2 79 18 156/69 95 09/02/16 20:00 100.0 74 22 162/78 95 09/02/16 20:00 82 09/02/16 16:00 98.9 68 18 161/74 95 09/02/16 12:00 97.5 64 18 139/65 94 09/03/16 09/03/16 09/03/16 07:00 15:00 23:00 Intake Total 382 ml Output Total 300 ml Balance 82 ml Result Diagram: 09/03/16 0813 09/03/16 0813 Laboratory Results Laboratory Tests Test 09/02/16 09/03/16 13:18 08:13 Activated Partial 50.2 SEC 49.7 SEC Thromboplast Time Hemoglobin 10.2 GM/DL Hematocrit 29.5 % Potassium Level 2.9 MEQ/L Administered Medications Medications (Trade) Dose Ordered Sig/Mauricio Route PRN Reason Start Time Stop Time Status Last Admin Dose Admin IV Flush (NS Flush) 2 ml BID IV FLUSH 08/27/16 21:00 09/03/16 09:18 Acetaminophen/ Hydrocodone Bitart ([place] 5-325 Mg) 1 tab Q4H PRN PO PAIN SCALE 1 TO 5 08/27/16 10:30 08/28/16 23:01 Morphine Sulfate (Morphine Inj) 2 mg Q2H PRN IV PAIN SCALE 6 TO 10 08/27/16 10:30 09/01/16 01:23 Artificial Tears (Tears Naturale Opth Soln) 1 drop TID EACH EYE 08/27/16 13:00 09/03/16 09:20 Docusate Sodium (Colace) 100 mg BID PO 08/27/16 21:00 09/03/16 09:17 Chlorhexidine Gluconate (Chlorhexidine 2% Cloth) Taper DAILY@04 TOP 08/28/16 04:00 08/24/17 03:59 08/31/16 21:35 Quetiapine Fumarate (SEROquel) 25 mg BID PO 08/27/16 21:00 09/03/16 09:17 Donepezil HCl (Aricept) 10 mg HS PO 08/27/16 21:00 09/02/16 21:07 Memantine (Namenda) 10 mg BID PO 08/27/16 21:00 09/03/16 09:17 Sertraline HCl (Zoloft) 25 mg DAILY PO 08/28/16 09:00 09/03/16 09:17 Hydralazine HCl 10 mg 10 mg Q6H PRN IV SBP> OR = 180, DBP> OR = 100 08/29/16 08:45 09/01/16 06:21 Heparin Sodium/ Dextrose (Heparin-D5W Inj) 250 ml @ 0 mls/hr TITRATE IV 08/30/16 07:45 09/02/16 10:14 Atenolol (Tenormin) 12.5 mg DAILY PO 08/30/16 12:00 09/03/16 09:17 Atorvastatin Calcium (Lipitor) 40 mg HS PO 08/30/16 21:00 09/02/16 21:00 Isosorbide Mononitrate (Imdur) 60 mg DAILY PO 08/31/16 09:00 09/03/16 09:17 Cefuroxime Axetil 250 mg 250 mg Q12HR PO 08/31/16 09:00 09/07/16 08:59 09/03/16 09:17 Sodium Chloride (NS 1000 ml Inj) 1,000 ml @ 40 mls/hr Q24H IV 08/31/16 16:00 09/03/16 09:23 Objective Remarks GENERAL: Elderly female, sitting up in bed in [facility]. SKIN: Warm and dry. HEAD: Normocephalic. EYES:No injection or drainage. NECK: Supple, trachea midline. CARDIOVASCULAR: +S1/S2 RESPIRATORY: anterior elizondo clear. GASTROINTESTINAL: Abdomen soft, non-tender. fading ecchymoses on lower abdomen. EXTREMITIES: No cyanosis, or edema. MUSCULOSKELETAL: Adequate muscle tone. NEUROLOGICAL: awake and alert. able to move extremities. Assessment/Plan Problem List: (1) Rectus sheath hematoma Status: Acute Plan: --developed while on Lovenox which has been stopped. now on heparin gtt --H/H stable. (2) Aortic valve replaced Status: Acute Plan: --on heparin gtt --monitor H/H closely Assessment 85y/o female with a history of AVR who was on anticoagulation and developed a rectus sheath hematoma. Hematology consulted for recommendations for anticoagulation. h/o dementia with behavioral disturbances. --admitted as BA h/o hypertension and hyperlipidemia and CAD Plan 1. monitor H/H 2. She has conflicting needs: both high risk of developing clot with AVR and a developed rectus sheath hematoma while on Lovenox in the past. case management notes reviewed--patient appears to have good social support. Can consider starting Coumadin slowly with close monitoring of INR by medical team and close follow up with her primary physician in [place] once discharged. Attending Statement The exam, history, and the medical decision-making described in the above note were completed with the assistance of the mid-level provider. I reviewed and agree with the findings presented. I attest that I had a [id number] encounter with the patient on the same day, and personally performed and documented my assessment and findings in the medical record. Discussed with Dr. Ashton. Start Coumadin with Heparin bridging. High risk of thrombo-embolic phenomenon with AVR. Closely monitor Hb and Hematoma. Carmen Briscoe Sep 03, 2016 10:54 Randal Pompa MD Sep 03, 2016 23:03
--- NOTE | 2016-09-03 11:09 | HHI.PR ---
Subjective Remarks in no acute distress. denies pain. d/w the RN and no acute issues over night. 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 Objective Vitals Vital Signs Date Time Temp Pulse Resp B/P Pulse Ox O2 Delivery O2 Flow Rate FiO2 09/03/16 08:27 95 21 09/03/16 08:07 98.5 93 20 164/70 95 09/03/16 04:00 97.7 86 22 96/60 96 09/03/16 00:00 98.2 79 18 156/69 95 09/02/16 20:00 100.0 74 22 162/78 95 09/02/16 20:00 82 09/02/16 16:00 98.9 68 18 161/74 95 09/02/16 12:00 97.5 64 18 139/65 94 I/O 09/02/16 09/02/16 09/02/16 09/03/16 09/03/16 09/03/16 07:00 15:00 23:00 07:00 15:00 23:00 Intake Total 544 ml 0 ml 711 ml 382 ml Output Total 300 ml 550 ml 500 ml 300 ml Balance 244 ml -550 ml 211 ml 82 ml Intake Oral 120 ml 0 ml IV Total 361 ml 614 ml 325 ml Other 63 ml 97 ml 57 ml Output Urine Total 300 ml 550 ml 500 ml 300 ml # Bowel Movements 0 1 0 0 Result Diagram: 09/03/1681209/03/16812 Imaging Last Impressions Chest X-Ray 08/29/16 0000 Signed Impressions: Service Date/Time: Monday, August 29, 2016 10:57 - CONCLUSION: Stable chest appearance with no acute disease Ruben Castro MD Abdomen/Pelvis CT 08/28/16 0000 Signed Impressions: Service Date/Time: Sunday, August 28, 2016 10:20 - CONCLUSION: 1. Rectus sheath hematoma the left appears unchanged. 2. Bilateral renal cysts. There is a small subcentimeter indeterminate lesion left mid kidney. Long-term followup recommended. 3. Diverticulosis of the colon without diverticulitis. Ray Vizcarra MD Head CT 08/27/16 0000 Signed Impressions: Service Date/Time: Saturday, August 27, 2016 11:42 - CONCLUSION: Atrophy. No acute intracranial process. Wang Marin MD Objective Remarks GENERAL: This is a well-nourished, well-developed patient, in no apparent distress. CARDIOVASCULAR: Regular rate and regular rhythm without murmurs, gallops, or rubs. RESPIRATORY: Clear to auscultation. Breath sounds equal bilaterally. No wheezes , rales, or rhonchi. GASTROINTESTINAL: Abdomen soft, non-tender, nondistended. Normal, active bowel sounds MUSCULOSKELETAL: Extremities without clubbing, cyanosis, or edema. NEURO: awake and alert- oriented to person and partly to place Procedures none Medications and IVs Current Medications Sodium Chloride (NS 1000 ml Inj) 1,000 ml @ 84 mls/hr [id number] IV Last administered on 08/27/16 18:59; Start 08/27/16 at 11:00; Stop 08/28/16 at 08:42 ; Status DC IV Flush (NS Flush) 2 ml UNSCH PRN IV FLUSH FLUSH AFTER USING IV ACCESS; Start 08/27/16 at 10:30 IV Flush (NS Flush) 2 ml BID IV FLUSH Last administered on 09/03/16 09:18; Start 08/27/16 at 21:00 Acetaminophen (Tylenol) 650 mg Q6H PRN PO PAIN 1-3, FEVER >101F; Start at 10:30 Acetaminophen/ Hydrocodone Bitart ([place] 5-325 Mg) 1 tab Q4H PRN PO PAIN SCALE 1 TO 5 Last administered on 08/28/16 23:01; Start 08/27/16 at 10:30 Morphine Sulfate (Morphine Inj) 2 mg Q2H PRN IV PAIN SCALE 6 TO 10 Last administered on 09/01/16 01:23; Start 08/27/16 at 10:30 Pantoprazole Sodium (Protonix Inj) 40 mg DAILY IV Last administered on 09:00; Start 08/28/16 at 09:00; Stop 08/29/16 at 08:38; Status DC Artificial Tears (Tears Naturale Opth Soln) 1 drop TID EACH EYE Last administered on 09/03/16 09:20; Start 08/27/16 at 13:00 Ondansetron HCl (Zofran Inj) 4 mg Q6H PRN IV NAUSEA OR VOMITING; Start at 10:30 Docusate Sodium (Colace) 100 mg BID PO Last administered on 09/03/16 09:17; Start 08/27/16 at 21:00 Sennosides (Senokot) 17.2 mg Q12H PRN PO CONSTIPATION; Start 08/27/16 at 10:30 Albuterol/ Ipratropium (Duoneb Neb) 1 ampule Q2HR NEB PRN INH WHEEZING; Start 08/27/16 at 10:30 Miscellaneous Information 1 Q361D XX ; Start 08/27/16 at 10:30 Chlorhexidine Gluconate (Chlorhexidine 2% Cloth) Taper DAILY@04 TOP Last administered on 08/31/16 21:35; Start 08/28/16 at 04:00; Stop 08/24/17 at 03:59 Chlorhexidine Gluconate (Chlorhexidine 2% Cloth) 3 pack UNSCH PRN TOP HYGIENIC CARE; Start 08/27/16 at 10:30 Dextrose (D50w (Vial) Inj) 25 ml UNSCH PRN IV PUSH HYPOGLYCEMIA-SEE COMMENTS; Start 08/27/16 at 10:30 Glucagon (Glucagon Inj) 1 mg UNSCH PRN OTHER HYPOGLYCEMIA-SEE COMMENTS; Start 08/27/16 at 10:30 Insulin Human Regular (NovoLIN R SUPPLEMENTAL SCALE) 1 ACHS SLIDING SCALE SQ ; Start 08/27/16 at 11:00; Stop 08/29/16 at 08:38; Status DC Sertraline HCl (Zoloft) 25 mg DAILY PO ; Start 08/28/16 at 09:00; Status UNV Quetiapine Fumarate (SEROquel) 25 mg BID PO Last administered on 09/03/16 09: 17; Start 08/27/16 at 21:00 Donepezil HCl (Aricept) 10 mg DAILY PO ; Start 08/28/16 at 09:00; Stop 08/28/16 at 09:00; Status DC Donepezil HCl (Aricept) 10 mg HS PO Last administered on 09/02/16 21:07; Start 08/27/16 at 21:00 Memantine (Namenda) 10 mg BID PO Last administered on 09/03/16 09:17; Start at 21:00 Quetiapine Fumarate (SEROquel) 25 mg DAILY PO ; Start 08/28/16 at 09:00; Stop at 09:00; Status DC Sertraline HCl 25 mg 25 mg DAILY PO Last administered on 09/03/16 09:17; Start 08/28/16 at 09:00 Sodium Chloride (NS 1000 ml Inj) 1,000 ml @ 70 mls/hr [id number] IV ; Start at 11:00; Stop 08/27/16 at 11:01; Status DC Acetaminophen 325 mg 325 mg Q4H PRN RECTAL Pain 1-3 T > 101 > 101; Start at 11:00 Sodium Phosphate/ Sodium Chloride (Sodium Phosphate Inj/NS Inj) 155 ml @ 38.75 mls/ hr ONCE ONCE IV Last administered on 08/27/16 13:36; Start 08/27/16 at 13:00; Stop 08/27/16 at 16:59; Status DC Phytonadione (Mephyton) 5 mg ONCE ONCE PO Last administered on 08/27/16 12:45 ; Start 08/27/16 at 12:45; Stop 08/27/16 at 12:46; Status DC Protamine Sulfate (Protamine Sulfate Inj) 25 mg ONCE ONCE IV PUSH Last administered on 08/27/16 15:30; Start 08/27/16 at 15:15; Stop 08/27/16 at 15:18 ; Status DC Furosemide 20 mg 20 mg ONCE ONCE IV PUSH Last administered on 08/28/16 11:43 ; Start 08/28/16 at 10:00; Stop 08/28/16 at 10:01; Status DC Potassium Chloride 10 meq/ Sodium Chloride 1,005 ml @ 75 mls/hr [id number] IV Last administered on 08/29/16 03:38; Start 08/28/16 at 11:00; Stop 08/29/16 at 08:38; Status DC Potassium Chloride 100 ml @ 50 mls/hr Q2H PRN IV For Potassium 2.8 - 3.2 mEq/L ; Start 08/29/16 at 08:45; Stop 08/30/16 at 11:48; Status DC Potassium Chloride (KCl 20 Meq Premix Inj) 100 ml @ 50 mls/hr Q2H PRN IV For Potassium 2.8 - 3.2 mEq/L; Start 08/29/16 at 08:45; Stop 08/30/16 at 11:48; Status DC Potassium Chloride 40 meq 40 meq UNSCH PRN PO/TUBE For Potassium 3.3 - 3.5 mEq/ L Last administered on 08/29/16 09:18; Start 08/29/16 at 08:45; Stop 08/30/16 at 11:48; Status DC Potassium Chloride 100 ml @ 25 mls/hr UNSCH PRN IV For Potassium 3.3 - 3.5 mEq /L; Start 08/29/16 at 08:45; Stop 08/30/16 at 11:48; Status DC Potassium Chloride 100 ml @ 50 mls/hr Q2H PRN IV For Potassium 3.3 - 3.5 mEq/L ; Start 08/29/16 at 08:45; Stop 08/30/16 at 11:49; Status DC Magnesium Sulfate/ Sodium Chloride (Magnesium Sulfate Inj/NS Inj) 100 ml @ 50 mls/hr UNSCH PRN IV For Magnesium 0.9 - 1.1 mg/dL; Start 08/29/16 at 08:45; Stop 08/30/16 at 11:49; Status DC Magnesium Oxide 800 mg 800 mg UNSCH PRN PO For Magnesium 1.2 - 1.6 mg/dL; Start 08/29/16 at 08:45; Stop 08/30/16 at 11:49; Status DC Magnesium Sulfate/ Sodium Chloride (Magnesium Sulfate Inj/NS Inj) 100 ml @ 50 mls/hr UNSCH PRN IV For Magnesium 1.2 - 1.6 mg/dL; Start 08/29/16 at 08:45; Stop 08/30/16 at 11:49; Status DC Potassium Phosphate 2000 mg 2,000 mg Q4H PRN PO For Phosphorus < 2.5 mg/dL; Start 08/29/16 at 08:45; Stop 08/30/16 at 11:50; Status DC Sodium Phosphate/ Sodium Chloride (Sodium Phosphate Inj/NS 250 ml Inj) 250 ml @ 42 mls/hr UNSCH PRN IV For Phosphorus < 2.5 mg/dL Last administered on 15:57; Start 08/29/16 at 08:45; Stop 08/30/16 at 11:50; Status DC Potassium Chloride (KCl 40 Meq/30 ml Liq) 40 meq UNSCH PRN PO/TUBE SEE LABEL COMMENTS; Start 08/29/16 at 08:45; Stop 08/30/16 at 11:50; Status DC Potassium Phosphate 2000 mg 2,000 mg UNSCH PRN PO/TUBE SEE LABEL COMMENTS; Start 08/29/16 at 08:45; Stop 08/30/16 at 11:50; Status DC Potassium Phosphate/Sodium Chloride (Potassium Phosphate Inj/NS 250 ml Inj) 260 ml @ 42 mls/hr UNSCH PRN IV SEE LABEL COMMENTS; Start 08/29/16 at 08:45; Stop 08/30/16 at 11:50; Status DC Hydralazine HCl (Apresoline Inj) 10 mg Q6H PRN IV SBP> OR = 180, DBP> OR = 100 Last administered on 09/01/16 06:21; Start 08/29/16 at 08:45 Clonidine 0.1 mg 0.1 mg Q6H PRN PO SBP> OR = 180, DBP> OR = 100; Start at 08:45 Heparin Sodium/ Dextrose (Heparin-D5W Inj) 250 ml @ 0 mls/hr TITRATE IV Last administered on 09/02/16 10:14; Start 08/30/16 at 07:45 Atenolol (Tenormin) 12.5 mg DAILY PO Last administered on 09/03/16 09:17; Start 08/30/16 at 12:00 Atorvastatin Calcium (Lipitor) 40 mg HS PO Last administered on 09/02/16 21:00 ; Start 08/30/16 at 21:00 Isosorbide Mononitrate (Imdur) 60 mg DAILY PO Last administered on 09/03/16 09 :17; Start 08/31/16 at 09:00 Miscellaneous (Pill Splitter) 1 ea UNSCH PRN OTHER SEE LABEL COMMENTS; Start at 12:00 Cefuroxime Axetil 250 mg 250 mg Q12HR PO Last administered on 09/03/16 09:17; Start 08/31/16 at 09:00; Stop 09/07/16 at 08:59 Sodium Chloride (NS 1000 ml Inj) 1,000 ml @ 40 mls/hr Q24H IV Last administered on 09/03/16 09:23; Start 08/31/16 at 16:00 A/P Assessment and Plan A/P Dementia disorder Behavioral disturbance NOS Continue Seroquel 25 mg by mouth twice daily for anxiety as indicated Continue Namenda 10 mg twice a day and Aricept 10 mg at night for dementia Continue sertraline 25 mg by mouth daily for depression continue Aricept Neuro checks Acetaminophen for fever [place]/morphine for pain management Psychiatry has accepted patient once medically clear History of hypertension History dyslipidemia History of aVR History of coronary disease status post CABG Elevated HDL 2-D echocardiogram is ordered. Results are as expected with AV prosthesis Holding lisinopril 2.5 mg daily light of acute kidney injury. Holding aspirin 81 mg by mouth daily in light of hematoma Anti-hypertensives as needed. Restart atenolol and Imdur with hold parameters. Also restarted Lipitor. Anticoagulation with IV heparin to be continued - will resume coumadin along with bridging- d/w . Rectus sheath hematoma. Stable Patient to continue regular diet Colace/as needed Senokot for bowel regimen CT abdomen/posterior left rectus sheath hematoma which is stable on repeat CT. resume coumadin and monitor closely. Urinary retention. Perez catheter reinserted. will dc perez cath today with voiding trial. Acute kidney injury-improved Avoid nephrotoxic drugs Lisinopril be held Accurate I/Os Monitor urine output Anemia Thrombocytopenia Coumadin use Patient did receive bridging dose of Lovenox 50 mg subcutaneous twice a day for "bridging" while INR subtherapeutic for aVR however currently has abdominal wall hematoma. Received 2 units FFP and 25 mg protamine since factor X levels will take greater than 2 days return at this facility 1 unit PRBCs and 2 FFP given Coumadin currently on hold hematology following. Gram-negative yahaira UTI. Started Ceftin. Blood cultures 2 negative to date Hypernatremia. Improved low grade fever- will monitor for now. hypokalemia; will replace and monitor. Replace electrolytes as clinically indicated PT evaluate and treat Prophylaxis - GI - Protonix - DVT - SCD/pharmacological prophylaxis/ on heparin drip/ coumadin. Discharge Planning dc to psych unit when INR is therapeutic. Mele Ashton MD Sep 03, 2016 11:09 Mele Ashton MD Sep 03, 2016 11:09
[2016-09-03] MEDS ORDERED: POTASSIUM CHLORIDE 10 MEQ CONTROLLED RELEASE TAB PO ONE ×3 (11:15→18:00)
[2016-09-03] MEDS: WARFARIN SOD 5 MG TAB PO SCH (15:15)
[2016-09-03] MEDS: HEPARIN-D5W INJ 250 ML IV SCH (20:55)
[2016-09-03] MEDS: ATORVASTATIN 40 MG TAB PO SCH (21:00)
[2016-09-03] MEDS: DONEPEZIL HCL 5 MG TAB PO SCH (21:00)
[2016-09-03] MEDS ORDERED: HALOPERIDOL LACTATE 5 MG/ML AMP IM ONE (23:45)
[2016-09-04] VITALS (11 sets, daily range): BP systolic 102–174; BP diastolic 52–84; PULSE 56–82; RESP 12–20; TEMP 97–99.1; O2SAT 90–97
[2016-09-04] MEDS: CHLORHEXIDINE GLUCONATE 2 % 1 PACK (2 CLOTHS) TOP SCH (02:24)
[2016-09-04 08:35] LABS: APTT (PATIENT) 26.8 SEC (24.3-30.1); INTERNATIONAL NORMALIZED RATIO 1.1 RATIO; PROTHROMBIN TIME - PATIENT 12.7 SEC (9.8-11.6)
[2016-09-04] MEDS: SODIUM CHLORIDE 0.9% FLUSH 5 ML FLUSH IV FLUSH SCH ×2 (09:00→20:30)
[2016-09-04] MEDS: ISOSORBIDE MONONITRATE 60 MG TAB PO SCH (09:37)
[2016-09-04] MEDS: DOCUSATE SODIUM 100 MG CAP PO SCH ×2 (09:37→20:13)
[2016-09-04] MEDS: QUEtiapine FUMARATE 25 MG TAB PO SCH ×2 (09:37→20:13)
[2016-09-04] MEDS: MEMANTINE HCL 10 MG TAB PO SCH ×2 (09:38→20:13)
[2016-09-04] MEDS: SERTRALINE HCL 50 MG TAB PO SCH (09:39)
[2016-09-04] MEDS: CEFUROXIME AXETIL 250 MG TAB PO SCH ×2 (09:40→20:13)
[2016-09-04] MEDS: ARTIFICIAL TEARS OPTH SOLN 15 ML BTL EACH EYE SCH ×3 (09:42→17:09)
[2016-09-04] MEDS: ATENOLOL 25 MG TAB PO SCH (09:45)
[2016-09-04] MEDS: SODIUM CHLOR 0.9% 1000 ML INJ 1,000 ML IV SCH (09:51)
--- NOTE | 2016-09-04 11:40 | PD.ONC.PN ---
Subjective Subjective Remarks Afebrile overnight. No reported overnight events. Patient resting comfortably. No family members at bedside. Objective Data Date Time Temp Pulse Resp B/P Pulse Ox O2 Delivery O2 Flow Rate FiO2 09/04/16 11:18 97.0 09/04/16 11:12 69 12 102/52 97 09/04/16 10:12 96 09/04/16 10:02 74 09/04/16 09:00 97.2 56 12 174/80 90 09/04/16 07:39 66 09/04/16 07:24 95 21 09/04/16 04:00 97.6 74 18 170/84 95 09/04/16 00:00 99.1 82 18 146/73 92 09/03/16 22:12 96 21 09/03/16 20:30 103 09/03/16 20:00 97.8 86 18 195/84 94 09/03/16 16:06 98.0 67 19 147/67 95 09/03/16 12:38 98.6 81 18 158/73 96 09/04/16 09/04/16 09/04/16 07:00 15:00 23:00 Intake Total 502 ml Balance 502 ml Result Diagram: 09/03/16 0813 09/04/16 0815 Laboratory Results Laboratory Tests Test 09/04/16 08:15 Prothrombin Time 12.7 SEC Prothromb Time International 1.1 RATIO Ratio Activated Partial 26.8 SEC Thromboplast Time Potassium Level 3.6 MEQ/L Administered Medications Medications (Trade) Dose Ordered Sig/Mauricio Route PRN Reason Start Time Stop Time Status Last Admin Dose Admin IV Flush (NS Flush) 2 ml BID IV FLUSH 08/27/16 21:00 09/03/16 21:00 Acetaminophen/ Hydrocodone Bitart ([place] 5-325 Mg) 1 tab Q4H PRN PO PAIN SCALE 1 TO 5 08/27/16 10:30 08/28/16 23:01 Morphine Sulfate (Morphine Inj) 2 mg Q2H PRN IV PAIN SCALE 6 TO 10 08/27/16 10:30 09/01/16 01:23 Artificial Tears (Tears Naturale Opth Soln) 1 drop TID EACH EYE 08/27/16 13:00 09/04/16 09:42 Docusate Sodium (Colace) 100 mg BID PO 08/27/16 21:00 09/04/16 09:37 Chlorhexidine Gluconate (Chlorhexidine 2% Cloth) Taper DAILY@04 TOP 08/28/16 04:00 08/24/17 03:59 08/31/16 21:35 Quetiapine Fumarate (SEROquel) 25 mg BID PO 08/27/16 21:00 09/04/16 09:37 Donepezil HCl (Aricept) 10 mg HS PO 08/27/16 21:00 09/03/16 21:00 Memantine (Namenda) 10 mg BID PO 08/27/16 21:00 09/04/16 09:38 Sertraline HCl (Zoloft) 25 mg DAILY PO 08/28/16 09:00 09/04/16 09:39 Hydralazine HCl 10 mg 10 mg Q6H PRN IV SBP> OR = 180, DBP> OR = 100 08/29/16 08:45 09/01/16 06:21 Heparin Sodium/ Dextrose (Heparin-D5W Inj) 250 ml @ 0 mls/hr TITRATE IV 08/30/16 07:45 09/03/16 20:55 Atenolol (Tenormin) 12.5 mg DAILY PO 08/30/16 12:00 09/04/16 09:45 Atorvastatin Calcium (Lipitor) 40 mg HS PO 08/30/16 21:00 09/03/16 21:00 Isosorbide Mononitrate (Imdur) 60 mg DAILY PO 08/31/16 09:00 09/04/16 09:37 Cefuroxime Axetil 250 mg 250 mg Q12HR PO 08/31/16 09:00 09/07/16 08:59 09/04/16 09:40 Sodium Chloride (NS 1000 ml Inj) 1,000 ml @ 40 mls/hr Q24H IV 08/31/16 16:00 09/04/16 09:51 Warfarin Sodium (Coumadin) 5 mg DAILY@1600 PO 09/03/16 16:00 09/03/16 15:15 Objective Remarks GENERAL: Elderly female, lying supine in bed in [place]. SKIN: Warm and dry. HEAD: Normocephalic. EYES:No injection or drainage. NECK: Supple, trachea midline. CARDIOVASCULAR: +S1/S2 RESPIRATORY: anterior elizondo clear. GASTROINTESTINAL: Abdomen soft, non-tender. 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 NEUROLOGICAL: awake and alert. moving extremities. Assessment/Plan Problem List: (1) Rectus sheath hematoma Status: Acute Plan: --developed while on Lovenox which has been stopped. now on heparin bridge to coumadin. --H/H stable. (2) Aortic valve replaced Status: Acute Plan: --on heparin bridge to coumadin --monitor H/H closely Assessment 85y/o female with a history of AVR who was on anticoagulation and developed a rectus sheath hematoma. Hematology consulted for recommendations for anticoagulation. h/o dementia with behavioral disturbances. --admitted as BA h/o hypertension and hyperlipidemia and CAD Plan 1. monitor H/H--pending for today 2. continue heparin bridge to coumadin Attending Statement The exam, history, and the medical decision-making described in the above note were completed with the assistance of the mid-level provider. I reviewed and agree with the findings presented. I attest that I had a [id number] encounter with the patient on the same day, and personally performed and documented my assessment and findings in the medical record. INR 1.1 today. No bleeding. hematoma stable. Hb stable. Continue Heparin Bridge with coumadin Until INR > 2 for alteast 48 hours before starting heparin. Carmen Briscoe Sep 04, 2016 11:39 Randal Pmopa MD Sep 05, 2016 00:23
--- NOTE | 2016-09-04 12:16 | HHI.PR ---
Subjective Remarks resting comfortably with no distress. d/w the RN; reportedly was agitated last night and received a dose of Haldol last night. otherwise no other acute issues over night. Objective Vitals Vital Signs Date Time Temp Pulse Resp B/P Pulse Ox O2 Delivery O2 Flow Rate FiO2 09/04/16 11:18 97.0 09/04/16 11:12 69 12 102/52 97 09/04/16 10:12 96 09/04/16 10:02 74 09/04/16 09:00 97.2 56 12 174/80 90 09/04/16 07:39 66 09/04/16 07:24 95 21 09/04/16 04:00 97.6 74 18 170/84 95 09/04/16 00:00 99.1 82 18 146/73 92 09/03/16 22:12 96 21 09/03/16 20:30 103 09/03/16 20:00 97.8 86 18 195/84 94 09/03/16 16:06 98.0 67 19 147/67 95 09/03/16 12:38 98.6 81 18 158/73 96 I/O 09/03/16 09/03/16 09/03/16 09/04/16 09/04/16 09/04/16 07:00 15:00 23:00 07:00 15:00 23:00 Intake Total 382 ml 600 ml 570 ml 502 ml Output Total 300 ml 780 ml 500 ml Balance 82 ml -180 ml 70 ml 502 ml Intake Oral 600 ml 240 ml 120 ml IV Total 325 ml 330 ml 382 ml Other 57 ml Output Urine Total 300 ml 780 ml 500 ml # Voids 2 2 # Bowel Movements 0 1 0 0 Result Diagram: 09/03/16 0813 09/04/16 0815 Imaging Last Impressions Chest X-Ray 08/29/16 0000 Signed Impressions: Service Date/Time: Monday, August 29, 2016 10:57 - CONCLUSION: Stable chest appearance with no acute disease Ruben Castro MD Abdomen/Pelvis CT 08/28/16 0000 Signed Impressions: Service Date/Time: Sunday, August 28, 2016 10:20 - CONCLUSION: 1. Rectus sheath hematoma the left appears unchanged. 2. Bilateral renal cysts. There is a small subcentimeter indeterminate lesion left mid kidney. Long-term followup recommended. 3. Diverticulosis of the colon without diverticulitis. Ray Vizcarra MD Head CT 08/27/16 0000 Signed Impressions: Service Date/Time: Saturday, August 27, 2016 11:42 - CONCLUSION: Atrophy. No acute intracranial process. Wang Marin MD Objective Remarks GENERAL: This is a well-nourished, well-developed patient, in no apparent distress. CARDIOVASCULAR: Regular rate and regular rhythm without murmurs, gallops, or rubs. RESPIRATORY: Clear to auscultation. Breath sounds equal bilaterally. No wheezes , rales, or rhonchi. GASTROINTESTINAL: Abdomen soft, non-tender, nondistended. Normal, active bowel sounds MUSCULOSKELETAL: Extremities without clubbing, cyanosis, or edema. NEURO: awake and alert- oriented to person and partly to place Procedures none Medications and IVs Current Medications Sodium Chloride (NS 1000 ml Inj) 1,000 ml @ 84 mls/hr [id number] IV Last administered on 08/27/16 18:59; Start 08/27/16 at 11:00; Stop 08/28/16 at 08:42 ; Status DC IV Flush (NS Flush) 2 ml UNSCH PRN IV FLUSH FLUSH AFTER USING IV ACCESS; Start 08/27/16 at 10:30 IV Flush (NS Flush) 2 ml BID IV FLUSH Last administered on 09/03/16 21:00; Start 08/27/16 at 21:00 Acetaminophen (Tylenol) 650 mg Q6H PRN PO PAIN 1-3, FEVER >101F; Start at 10:30 Acetaminophen/ Hydrocodone Bitart ([place] 5-325 Mg) 1 tab Q4H PRN PO PAIN SCALE 1 TO 5 Last administered on 08/28/16 23:01; Start 08/27/16 at 10:30 Morphine Sulfate (Morphine Inj) 2 mg Q2H PRN IV PAIN SCALE 6 TO 10 Last administered on 09/01/16 01:23; Start 08/27/16 at 10:30 Pantoprazole Sodium (Protonix Inj) 40 mg DAILY IV Last administered on 09:00; Start 08/28/16 at 09:00; Stop 08/29/16 at 08:38; Status DC Artificial Tears (Tears Naturale Opth Soln) 1 drop TID EACH EYE Last administered on 09/04/16 09:42; Start 08/27/16 at 13:00 Ondansetron HCl (Zofran Inj) 4 mg Q6H PRN IV NAUSEA OR VOMITING; Start at 10:30 Docusate Sodium (Colace) 100 mg BID PO Last administered on 09/04/16 09:37; Start 08/27/16 at 21:00 Sennosides (Senokot) 17.2 mg Q12H PRN PO CONSTIPATION; Start 08/27/16 at 10:30 Albuterol/ Ipratropium (Duoneb Neb) 1 ampule Q2HR NEB PRN INH WHEEZING; Start 08/27/16 at 10:30 Miscellaneous Information 1 Q361D XX ; Start 08/27/16 at 10:30 Chlorhexidine Gluconate (Chlorhexidine 2% Cloth) Taper DAILY@04 TOP Last administered on 08/31/16 21:35; Start 08/28/16 at 04:00; Stop 08/24/17 at 03:59 Chlorhexidine Gluconate (Chlorhexidine 2% Cloth) 3 pack UNSCH PRN TOP HYGIENIC CARE; Start 08/27/16 at 10:30 Dextrose (D50w (Vial) Inj) 25 ml UNSCH PRN IV PUSH HYPOGLYCEMIA-SEE COMMENTS; Start 08/27/16 at 10:30 Glucagon (Glucagon Inj) 1 mg UNSCH PRN OTHER HYPOGLYCEMIA-SEE COMMENTS; Start 08/27/16 at 10:30 Insulin Human Regular (NovoLIN R SUPPLEMENTAL SCALE) 1 ACHS SLIDING SCALE SQ ; Start 08/27/16 at 11:00; Stop 08/29/16 at 08:38; Status DC Sertraline HCl (Zoloft) 25 mg DAILY PO ; Start 08/28/16 at 09:00; Status UNV Quetiapine Fumarate (SEROquel) 25 mg BID PO Last administered on 09/04/16 09: 37; Start 08/27/16 at 21:00 Donepezil HCl (Aricept) 10 mg DAILY PO ; Start 08/28/16 at 09:00; Stop 08/28/16 at 09:00; Status DC Donepezil HCl (Aricept) 10 mg HS PO Last administered on 09/03/16 21:00; Start 08/27/16 at 21:00 Memantine (Namenda) 10 mg BID PO Last administered on 09/04/16 09:38; Start at 21:00 Quetiapine Fumarate (SEROquel) 25 mg DAILY PO ; Start 08/28/16 at 09:00; Stop at 09:00; Status DC Sertraline HCl 25 mg 25 mg DAILY PO Last administered on 09/04/16 09:39; Start 08/28/16 at 09:00 Sodium Chloride (NS 1000 ml Inj) 1,000 ml @ 70 mls/hr [id number] IV ; Start at 11:00; Stop 08/27/16 at 11:01; Status DC Acetaminophen 325 mg 325 mg Q4H PRN RECTAL Pain 1-3 T > 101 > 101; Start at 11:00 Sodium Phosphate/ Sodium Chloride (Sodium Phosphate Inj/NS Inj) 155 ml @ 38.75 mls/ hr ONCE ONCE IV Last administered on 08/27/16 13:36; Start 08/27/16 at 13:00; Stop 08/27/16 at 16:59; Status DC Phytonadione (Mephyton) 5 mg ONCE ONCE PO Last administered on 08/27/16 12:45 ; Start 08/27/16 at 12:45; Stop 08/27/16 at 12:46; Status DC Protamine Sulfate (Protamine Sulfate Inj) 25 mg ONCE ONCE IV PUSH Last administered on 08/27/16 15:30; Start 08/27/16 at 15:15; Stop 08/27/16 at 15:18 ; Status DC Furosemide 20 mg 20 mg ONCE ONCE IV PUSH Last administered on 08/28/16 11:43 ; Start 08/28/16 at 10:00; Stop 08/28/16 at 10:01; Status DC Potassium Chloride 10 meq/ Sodium Chloride 1,005 ml @ 75 mls/hr [id number] IV Last administered on 08/29/16 03:38; Start 08/28/16 at 11:00; Stop 08/29/16 at 08:38; Status DC Potassium Chloride 100 ml @ 50 mls/hr Q2H PRN IV For Potassium 2.8 - 3.2 mEq/L ; Start 08/29/16 at 08:45; Stop 08/30/16 at 11:48; Status DC Potassium Chloride (KCl 20 Meq Premix Inj) 100 ml @ 50 mls/hr Q2H PRN IV For Potassium 2.8 - 3.2 mEq/L; Start 08/29/16 at 08:45; Stop 08/30/16 at 11:48; Status DC Potassium Chloride 40 meq 40 meq UNSCH PRN PO/TUBE For Potassium 3.3 - 3.5 mEq/ L Last administered on 08/29/16t 09:18; Start 08/29/16 at 08:45; Stop 08/30/16 at 11:48; Status DC Potassium Chloride 100 ml @ 25 mls/hr UNSCH PRN IV For Potassium 3.3 - 3.5 mEq /L; Start 08/29/16 at 08:45; Stop 08/30/16 at 11:48; Status DC Potassium Chloride 100 ml @ 50 mls/hr Q2H PRN IV For Potassium 3.3 - 3.5 mEq/L ; Start 08/29/16 at 08:45; Stop 08/30/16 at 11:49; Status DC Magnesium Sulfate/ Sodium Chloride (Magnesium Sulfate Inj/NS Inj) 100 ml @ 50 mls/hr UNSCH PRN IV For Magnesium 0.9 - 1.1 mg/dL; Start 08/29/16 at 08:45; Stop 08/30/16 at 11:49; Status DC Magnesium Oxide 800 mg 800 mg UNSCH PRN PO For Magnesium 1.2 - 1.6 mg/dL; Start 08/29/16 at 08:45; Stop 08/30/16 at 11:49; Status DC Magnesium Sulfate/ Sodium Chloride (Magnesium Sulfate Inj/NS Inj) 100 ml @ 50 mls/hr UNSCH PRN IV For Magnesium 1.2 - 1.6 mg/dL; Start 08/29/16 at 08:45; Stop 08/30/16 at 11:49; Status DC Potassium Phosphate 2000 mg 2,000 mg Q4H PRN PO For Phosphorus < 2.5 mg/dL; Start 08/29/16 at 08:45; Stop 08/30/16 at 11:50; Status DC Sodium Phosphate/ Sodium Chloride (Sodium Phosphate Inj/NS 250 ml Inj) 250 ml @ 42 mls/hr UNSCH PRN IV For Phosphorus < 2.5 mg/dL Last administered on 15:57; Start 08/29/16 at 08:45; Stop 08/30/16 at 11:50; Status DC Potassium Chloride (KCl 40 Meq/30 ml Liq) 40 meq UNSCH PRN PO/TUBE SEE LABEL COMMENTS; Start 08/29/16 at 08:45; Stop 08/30/16 at 11:50; Status DC Potassium Phosphate 2000 mg 2,000 mg UNSCH PRN PO/TUBE SEE LABEL COMMENTS; Start 08/29/16 at 08:45; Stop 08/30/16 at 11:50; Status DC Potassium Phosphate/Sodium Chloride (Potassium Phosphate Inj/NS 250 ml Inj) 260 ml @ 42 mls/hr UNSCH PRN IV SEE LABEL COMMENTS; Start 08/29/16 at 08:45; Stop 08/30/16 at 11:50; Status DC Hydralazine HCl (Apresoline Inj) 10 mg Q6H PRN IV SBP> OR = 180, DBP> OR = 100 Last administered on 09/01/16 06:21; Start 08/29/16 at 08:45 Clonidine 0.1 mg 0.1 mg Q6H PRN PO SBP> OR = 180, DBP> OR = 100; Start at 08:45 Heparin Sodium/ Dextrose (Heparin-D5W Inj) 250 ml @ 0 mls/hr TITRATE IV Last administered on 09/03/16 20:55; Start 08/30/16 at 07:45 Atenolol (Tenormin) 12.5 mg DAILY PO Last administered on 09/04/16 09:45; Start 08/30/16 at 12:00 Atorvastatin Calcium (Lipitor) 40 mg HS PO Last administered on 09/03/16 21:00 ; Start 08/30/16 at 21:00 Isosorbide Mononitrate (Imdur) 60 mg DAILY PO Last administered on 09/04/16 09 :37; Start 08/31/16 at 09:00 Miscellaneous (Pill Splitter) 1 ea UNSCH PRN OTHER SEE LABEL COMMENTS; Start at 12:00 Cefuroxime Axetil 250 mg 250 mg Q12HR PO Last administered on 09/04/16 09:40; Start 08/31/16 at 09:00; Stop 09/07/16 at 08:59 Sodium Chloride (NS 1000 ml Inj) 1,000 ml @ 40 mls/hr Q24H IV Last administered on 09/04/16 09:51; Start 08/31/16 at 16:00 Potassium Chloride (KCl) 30 meq ONCE ONCE PO Last administered on 09/03/16 11 :36; Start 09/03/16 at 11:15; Stop 09/03/16 at 11:16; Status DC Potassium Chloride (KCl) 30 meq ONCE ONCE PO Last administered on 09/03/16 13 :06; Start 09/03/16 at 14:00; Stop 09/03/16 at 14:01; Status DC Potassium Chloride (KCl) 40 meq ONCE ONCE PO Last administered on 09/03/16 17 :04; Start 09/03/16 at 18:00; Stop 09/03/16 at 18:01; Status DC Warfarin Sodium (Coumadin) 5 mg DAILY@1600 PO Last administered on 09/03/16 15 :15; Start 09/03/16 at 16:00 Patient Medication Teaching (Coumadin Booklet) 1 ONCE ONCE XX Last administered on 09/03/16 15:24; Start 09/03/16 at 16:00; Stop 09/03/16 at 16:01 ; Status DC Haloperidol Lactate (Haldol Inj) 2 mg ONCE ONCE IM Last administered on 23:45; Start 09/03/16 at 23:45; Stop 09/03/16 at 23:46; Status DC A/P Assessment and Plan A/P Dementia disorder Behavioral disturbance NOS Continue Seroquel 25 mg by mouth twice daily for anxiety as indicated Continue Namenda 10 mg twice a day and Aricept 10 mg at night for dementia Continue sertraline 25 mg by mouth daily for depression continue Aricept Neuro checks Acetaminophen for fever Ava/morphine for pain management Psychiatry has accepted patient once medically clear History of hypertension History dyslipidemia History of aVR History of coronary disease status post CABG Elevated HDL 2-D echocardiogram is ordered. Results are as expected with AV prosthesis Holding lisinopril 2.5 mg daily light of acute kidney injury. Holding aspirin 81 mg by mouth daily in light of hematoma Anti-hypertensives as needed. Restarted atenolol and Imdur with hold parameters. Also restarted Lipitor. Anticoagulation with IV heparin to be continued - resumed coumadin along with bridging- hematology following. Rectus sheath hematoma. Stable Patient to continue regular diet Colace/as needed Senokot for bowel regimen CT abdomen/posterior left rectus sheath hematoma which is stable on repeat CT. resumed coumadin and will monitor closely. Urinary retention. perez has been removed. Acute kidney injury-improved Avoid nephrotoxic drugs Lisinopril be held Accurate I/Os Monitor urine output Anemia Thrombocytopenia Coumadin use Patient did receive bridging dose of Lovenox 50 mg subcutaneous twice a day for "bridging" while INR subtherapeutic for aVR however currently has abdominal wall hematoma. Received 2 units FFP and 25 mg protamine since factor X levels will take greater than 2 days return at this facility 1 unit PRBCs and 2 FFP given resumed coumadin will monitor H/H hematology following. Gram-negative yahaira UTI. Started Ceftin. Blood cultures 2 negative to date Hypernatremia. Improved low grade fever- resolved. hypokalemia; replaced. PT evaluate and treat Prophylaxis - GI - Protonix - DVT - SCD/pharmacological prophylaxis/ on heparin drip/ coumadin. Discharge Planning dc to psych unit when INR is therapeutic. Mele Ashton MD Sep 04, 2016 12:16
[2016-09-04 12:58] LABS: HEMATOCRIT 25.8 % (35.0-46.0)
[2016-09-04 12:59] LABS: REVIEW FLAG FINAL
[2016-09-04 15:52] LABS: APTT (PATIENT) 27.5 SEC (24.3-30.1)
[2016-09-04] MEDS: WARFARIN SOD 5 MG TAB PO SCH (16:45)
[2016-09-04] MEDS: ATORVASTATIN 40 MG TAB PO SCH (20:13)
[2016-09-04] MEDS: DONEPEZIL HCL 5 MG TAB PO SCH (20:13)
[2016-09-04 22:08] LABS: HEMATOCRIT 28.7 % (35.0-46.0); REVIEW FLAG FINAL
[2016-09-04 22:20] LABS: APTT (PATIENT) 28.8 SEC (24.3-30.1)
[2016-09-05] VITALS (9 sets, daily range): BP systolic 144–192; BP diastolic 70–96; PULSE 69–108; RESP 12–22; TEMP 98–98.5; O2SAT 92–97
[2016-09-05] MEDS: CHLORHEXIDINE GLUCONATE 2 % 1 PACK (2 CLOTHS) TOP SCH (04:00)
[2016-09-05] MEDS: HEPARIN-D5W INJ 250 ML IV SCH (05:46)
[2016-09-05 07:30] LABS: HEMATOCRIT 27.8 % (35.0-46.0); REVIEW FLAG FINAL
[2016-09-05 08:01] LABS: APTT (PATIENT) GREATER THAN 153.4 SEC (24.3-30.1); INTERNATIONAL NORMALIZED RATIO 1.3 RATIO; PROTHROMBIN TIME - PATIENT 14.6 SEC (9.8-11.6)
[2016-09-05] MEDS: SODIUM CHLORIDE 0.9% FLUSH 5 ML FLUSH IV FLUSH SCH ×2 (09:00→19:46)
[2016-09-05] MEDS: DOCUSATE SODIUM 100 MG CAP PO SCH ×2 (09:19→19:44)
[2016-09-05] MEDS: CEFUROXIME AXETIL 250 MG TAB PO SCH ×2 (09:19→19:45)
[2016-09-05] MEDS: ARTIFICIAL TEARS OPTH SOLN 15 ML BTL EACH EYE SCH ×3 (09:21→16:13)
[2016-09-05] MEDS: MEMANTINE HCL 10 MG TAB PO SCH ×2 (09:21→19:44)
[2016-09-05] MEDS: SERTRALINE HCL 50 MG TAB PO SCH (09:21)
[2016-09-05] MEDS: ATENOLOL 25 MG TAB PO SCH (09:21)
[2016-09-05] MEDS: ISOSORBIDE MONONITRATE 60 MG TAB PO SCH (09:21)
[2016-09-05] MEDS: QUEtiapine FUMARATE 25 MG TAB PO SCH ×2 (09:21→19:43)
[2016-09-05] MEDS: SODIUM CHLOR 0.9% 1000 ML INJ 1,000 ML IV SCH (09:25)
[2016-09-05] MEDS: PILL SPLITTER OTHER PRN ×2 (09:26→12:40)
--- NOTE | 2016-09-05 10:40 | HHI.PR ---
Subjective Remarks in no acute distress. d/w the RN and no acute issues over night. on heparin drip. Objective Vitals Vital Signs Date Time Temp Pulse Resp B/P Pulse Ox O2 Delivery O2 Flow Rate FiO2 09/05/16 09:51 98.0 105 14 192/96 95 09/05/16 08:00 98.2 79 16 168/89 93 09/05/16 04:00 98.2 70 22 174/78 97 09/05/16 03:59 75 09/05/16 00:00 98.1 72 22 160/71 93 09/04/16 20:00 97.9 80 20 159/72 94 09/04/16 16:00 97.5 65 18 129/61 93 09/04/16 11:18 97.0 09/04/16 11:12 69 12 102/52 97 I/O 09/04/16 09/04/16 09/04/16 09/05/16 09/05/16 09/05/16 07:00 15:00 23:00 07:00 15:00 23:00 Intake Total 502 ml 410 ml 240 ml Balance 502 ml 410 ml 240 ml Intake Oral 120 ml 120 ml 240 ml IV Total 382 ml 290 ml # Voids 2 1 2 # Bowel Movements 0 0 0 Result Diagram: 09/05/16 0700 09/04/16 0815 Imaging Last Impressions Chest X-Ray 08/29/16 0000 Signed Impressions: Service Date/Time: Monday, August 29, 2016 10:57 - CONCLUSION: Stable chest appearance with no acute disease Ruben Castro MD Abdomen/Pelvis CT 08/28/16 0000 Signed Impressions: Service Date/Time: Sunday, August 28, 2016 10:20 - CONCLUSION: 1. Rectus sheath hematoma the left appears unchanged. 2. Bilateral renal cysts. There is a small subcentimeter indeterminate lesion left mid kidney. Long-term followup recommended. 3. Diverticulosis of the colon without diverticulitis. Ray Vizcarra MD Head CT 08/27/16 0000 Signed Impressions: Service Date/Time: Saturday, August 27, 2016 11:42 - CONCLUSION: Atrophy. No acute intracranial process. Wang Marin MD Objective Remarks GENERAL: This is a well-nourished, well-developed patient, in no apparent distress. CARDIOVASCULAR: Regular rate and regular rhythm without murmurs, gallops, or rubs. RESPIRATORY: Clear to auscultation. Breath sounds equal bilaterally. No wheezes , rales, or rhonchi. GASTROINTESTINAL: Abdomen soft, non-tender, nondistended. Normal, active bowel sounds MUSCULOSKELETAL: Extremities without clubbing, cyanosis, or edema. NEURO: awake and alert- oriented to person and partly to place Procedures none Medications and IVs Current Medications Sodium Chloride (NS 1000 ml Inj) 1,000 ml @ 84 mls/hr [id number] IV Last administered on 08/27/16 18:59; Start 08/27/16 at 11:00; Stop 08/28/16 at 08:42 ; Status DC IV Flush (NS Flush) 2 ml UNSCH PRN IV FLUSH FLUSH AFTER USING IV ACCESS; Start 08/27/16 at 10:30 IV Flush (NS Flush) 2 ml BID IV FLUSH Last administered on 09/03/16 21:00; Start 08/27/16 at 21:00 Acetaminophen (Tylenol) 650 mg Q6H PRN PO PAIN 1-3, FEVER >101F; Start at 10:30 Acetaminophen/ Hydrocodone Bitart ([place] 5-325 Mg) 1 tab Q4H PRN PO PAIN SCALE 1 TO 5 Last administered on 08/28/16 23:01; Start 08/27/16 at 10:30 Morphine Sulfate (Morphine Inj) 2 mg Q2H PRN IV PAIN SCALE 6 TO 10 Last administered on 09/01/16 01:23; Start 08/27/16 at 10:30 Pantoprazole Sodium (Protonix Inj) 40 mg DAILY IV Last administered on 09:00; Start 08/28/16 at 09:00; Stop 08/29/16 at 08:38; Status DC Artificial Tears (Tears Naturale Opth Soln) 1 drop TID EACH EYE Last administered on 09/05/16 09:21; Start 08/27/16 at 13:00 Ondansetron HCl (Zofran Inj) 4 mg Q6H PRN IV NAUSEA OR VOMITING; Start at 10:30 Docusate Sodium (Colace) 100 mg BID PO Last administered on 09/05/16 09:19; Start 08/27/16 at 21:00 Sennosides (Senokot) 17.2 mg Q12H PRN PO CONSTIPATION; Start 08/27/16 at 10:30 Albuterol/ Ipratropium (Duoneb Neb) 1 ampule Q2HR NEB PRN INH WHEEZING; Start 08/27/16 at 10:30 Miscellaneous Information 1 Q361D XX ; Start 08/27/16 at 10:30 Chlorhexidine Gluconate (Chlorhexidine 2% Cloth) Taper DAILY@04 TOP Last administered on 08/31/16 21:35; Start 08/28/16 at 04:00; Stop 08/24/17 at 03:59 Chlorhexidine Gluconate (Chlorhexidine 2% Cloth) 3 pack UNSCH PRN TOP HYGIENIC CARE; Start 08/27/16 at 10:30 Dextrose (D50w (Vial) Inj) 25 ml UNSCH PRN IV PUSH HYPOGLYCEMIA-SEE COMMENTS; Start 08/27/16 at 10:30 Glucagon (Glucagon Inj) 1 mg UNSCH PRN OTHER HYPOGLYCEMIA-SEE COMMENTS; Start 08/27/16 at 10:30 Insulin Human Regular (NovoLIN R SUPPLEMENTAL SCALE) 1 ACHS SLIDING SCALE SQ ; Start 08/27/16 at 11:00; Stop 08/29/16 at 08:38; Status DC Sertraline HCl (Zoloft) 25 mg DAILY PO ; Start 08/28/16 at 09:00; Status UNV Quetiapine Fumarate (SEROquel) 25 mg BID PO Last administered on 09/05/16 09:21 ; Start 08/27/16 at 21:00 Donepezil HCl (Aricept) 10 mg DAILY PO ; Start 08/28/16 at 09:00; Stop 08/28/16 at 09:00; Status DC Donepezil HCl (Aricept) 10 mg HS PO Last administered on 09/04/16 20:13; Start 08/27/16 at 21:00 Memantine (Namenda) 10 mg BID PO Last administered on 09/05/16 09:21; Start at 21:00 Quetiapine Fumarate (SEROquel) 25 mg DAILY PO ; Start 08/28/16 at 09:00; Stop at 09:00; Status DC Sertraline HCl 25 mg 25 mg DAILY PO Last administered on 09/05/16 09:21; Start 08/28/16 at 09:00 Sodium Chloride (NS 1000 ml Inj) 1,000 ml @ 70 mls/hr [id number] IV ; Start at 11:00; Stop 08/27/16 at 11:01; Status DC Acetaminophen 325 mg 325 mg Q4H PRN RECTAL Pain 1-3 T > 101 > 101; Start at 11:00 Sodium Phosphate/ Sodium Chloride (Sodium Phosphate Inj/NS Inj) 155 ml @ 38.75 mls/ hr ONCE ONCE IV Last administered on 08/27/16 13:36; Start 08/27/16 at 13:00; Stop 08/27/16 at 16:59; Status DC Phytonadione (Mephyton) 5 mg ONCE ONCE PO Last administered on 08/27/16 12:45 ; Start 08/27/16 at 12:45; Stop 08/27/16 at 12:46; Status DC Protamine Sulfate (Protamine Sulfate Inj) 25 mg ONCE ONCE IV PUSH Last administered on 08/27/16 15:30; Start 08/27/16 at 15:15; Stop 08/27/16 at 15:18 ; Status DC Furosemide 20 mg 20 mg ONCE ONCE IV PUSH Last administered on 08/28/16 11:43 ; Start 08/28/16 at 10:00; Stop 08/28/16 at 10:01; Status DC Potassium Chloride 10 meq/ Sodium Chloride 1,005 ml @ 75 mls/hr [id number] IV Last administered on 08/29/16 03:38; Start 08/28/16 at 11:00; Stop 08/29/16 at 08:38; Status DC Potassium Chloride 100 ml @ 50 mls/hr Q2H PRN IV For Potassium 2.8 - 3.2 mEq/L ; Start 08/29/16 at 08:45; Stop 08/30/16 at 11:48; Status DC Potassium Chloride (KCl 20 Meq Premix Inj) 100 ml @ 50 mls/hr Q2H PRN IV For Potassium 2.8 - 3.2 mEq/L; Start 08/29/16 at 08:45; Stop 08/30/16 at 11:48; Status DC Potassium Chloride 40 meq 40 meq UNSCH PRN PO/TUBE For Potassium 3.3 - 3.5 mEq/ L Last administered on 08/29/16 09:18; Start 08/29/16 at 08:45; Stop 08/30/16 at 11:48; Status DC Potassium Chloride 100 ml @ 25 mls/hr UNSCH PRN IV For Potassium 3.3 - 3.5 mEq /L; Start 08/29/16 at 08:45; Stop 08/30/16 at 11:48; Status DC Potassium Chloride 100 ml @ 50 mls/hr Q2H PRN IV For Potassium 3.3 - 3.5 mEq/L ; Start 08/29/16 at 08:45; Stop 08/30/16 at 11:49; Status DC Magnesium Sulfate/ Sodium Chloride (Magnesium Sulfate Inj/NS Inj) 100 ml @ 50 mls/hr UNSCH PRN IV For Magnesium 0.9 - 1.1 mg/dL; Start 08/29/16 at 08:45; Stop 08/30/16 at 11:49; Status DC Magnesium Oxide 800 mg 800 mg UNSCH PRN PO For Magnesium 1.2 - 1.6 mg/dL; Start 08/29/16 at 08:45; Stop 08/30/16 at 11:49; Status DC Magnesium Sulfate/ Sodium Chloride (Magnesium Sulfate Inj/NS Inj) 100 ml @ 50 mls/hr UNSCH PRN IV For Magnesium 1.2 - 1.6 mg/dL; Start 08/29/16 at 08:45; Stop 08/30/16 at 11:49; Status DC Potassium Phosphate 2000 mg 2,000 mg Q4H PRN PO For Phosphorus < 2.5 mg/dL; Start 08/29/16 at 08:45; Stop 08/30/16 at 11:50; Status DC Sodium Phosphate/ Sodium Chloride (Sodium Phosphate Inj/NS 250 ml Inj) 250 ml @ 42 mls/hr UNSCH PRN IV For Phosphorus < 2.5 mg/dL Last administered on t 15:57; Start 08/29/16 at 08:45; Stop 08/30/16 at 11:50; Status DC Potassium Chloride (KCl 40 Meq/30 ml Liq) 40 meq UNSCH PRN PO/TUBE SEE LABEL COMMENTS; Start 08/29/16 at 08:45; Stop 08/30/16 at 11:50; Status DC Potassium Phosphate 2000 mg 2,000 mg UNSCH PRN PO/TUBE SEE LABEL COMMENTS; Start 08/29/16 at 08:45; Stop 08/30/16 at 11:50; Status DC Potassium Phosphate/Sodium Chloride (Potassium Phosphate Inj/NS 250 ml Inj) 260 ml @ 42 mls/hr UNSCH PRN IV SEE LABEL COMMENTS; Start 08/29/16 at 08:45; Stop 08/30/16 at 11:50; Status DC Hydralazine HCl (Apresoline Inj) 10 mg Q6H PRN IV SBP> OR = 180, DBP> OR = 100 Last administered on 09/01/16 06:21; Start 08/29/16 at 08:45 Clonidine 0.1 mg 0.1 mg Q6H PRN PO SBP> OR = 180, DBP> OR = 100; Start at 08:45 Heparin Sodium/ Dextrose (Heparin-D5W Inj) 250 ml @ 0 mls/hr TITRATE IV Last administered on 09/05/16 05:46; Start 08/30/16 at 07:45 Atenolol (Tenormin) 12.5 mg DAILY PO Last administered on 09/05/16 09:21; Start 08/30/16 at 12:00 Atorvastatin Calcium (Lipitor) 40 mg HS PO Last administered on 09/04/16 20:13 ; Start 08/30/16 at 21:00 Isosorbide Mononitrate (Imdur) 60 mg DAILY PO Last administered on 09/05/16 09: 21; Start 08/31/16 at 09:00 Miscellaneous (Pill Splitter) 1 ea UNSCH PRN OTHER SEE LABEL COMMENTS Last administered on 09/05/16 09:26; Start 08/30/16 at 12:00 Cefuroxime Axetil 250 mg 250 mg Q12HR PO Last administered on 09/05/16 09:19; Start 08/31/16 at 09:00; Stop 09/07/16 at 08:59 Sodium Chloride (NS 1000 ml Inj) 1,000 ml @ 40 mls/hr Q24H IV Last administered on 09/05/16 09:25; Start 08/31/16 at 16:00 Potassium Chloride (KCl) 30 meq ONCE ONCE PO Last administered on 09/03/16 11 :36; Start 09/03/16 at 11:15; Stop 09/03/16 at 11:16; Status DC Potassium Chloride (KCl) 30 meq ONCE ONCE PO Last administered on 09/03/16 13 :06; Start 09/03/16 at 14:00; Stop 09/03/16 at 14:01; Status DC Potassium Chloride (KCl) 40 meq ONCE ONCE PO Last administered on 09/03/16 17 :04; Start 09/03/16 at 18:00; Stop 09/03/16 at 18:01; Status DC Warfarin Sodium (Coumadin) 5 mg DAILY@1600 PO Last administered on 09/04/16 16 :45; Start 09/03/16 at 16:00 Patient Medication Teaching (Coumadin Booklet) 1 ONCE ONCE XX Last administered on 09/03/16 15:24; Start 09/03/16 at 16:00; Stop 09/03/16 at 16:01 ; Status DC Haloperidol Lactate (Haldol Inj) 2 mg ONCE ONCE IM Last administered on 23:45; Start 09/03/16 at 23:45; Stop 09/03/16 at 23:46; Status DC A/P Assessment and Plan A/P Dementia disorder Behavioral disturbance NOS Continue Seroquel 25 mg by mouth twice daily for anxiety as indicated Continue Namenda 10 mg twice a day and Aricept 10 mg at night for dementia Continue sertraline 25 mg by mouth daily for depression continue Aricept Neuro checks Acetaminophen for fever [place]/morphine for pain management Psychiatry has accepted patient once medically clear History of hypertension History dyslipidemia History of aVR History of coronary disease status post CABG Elevated HDL 2-D echocardiogram is ordered. Results are as expected with AV prosthesis Holding lisinopril 2.5 mg daily light of acute kidney injury. Holding aspirin 81 mg by mouth daily in light of hematoma Anti-hypertensives as needed. Restarted atenolol and Imdur with hold parameters. Also restarted Lipitor. will increase atenolol to 25 mg po daily. Anticoagulation with IV heparin to be continued - resumed coumadin along with bridging- hematology following. Rectus sheath hematoma. Stable Patient to continue regular diet Colace/as needed Senokot for bowel regimen CT abdomen/posterior left rectus sheath hematoma which is stable on repeat CT. resumed coumadin and will monitor closely. Urinary retention. perez has been removed. Acute kidney injury-improved Avoid nephrotoxic drugs Lisinopril be held Accurate I/Os Monitor urine output Anemia Thrombocytopenia Coumadin use Received 2 units FFP and 25 mg protamine along with t PRBCs resumed coumadin will monitor H/H hematology following. Gram-negative yahaira UTI. Started Ceftin. Blood cultures 2 negative to date Hypernatremia. Improved low grade fever- resolved. hypokalemia; replaced. PT evaluate and treat Prophylaxis - GI - Protonix - DVT - SCD/pharmacological prophylaxis/ on heparin drip/ coumadin. Discharge Planning dc to psych unit when INR is therapeutic. Mele Ashton MD Sep 05, 2016 10:40
[2016-09-05] MEDS ORDERED: ATENOLOL 25 MG TAB PO ONE (10:45)
[2016-09-05 11:16] LABS: APTT (PATIENT) 77.4 SEC (24.3-30.1)
[2016-09-05] MEDS: WARFARIN SOD 5 MG TAB PO SCH (16:11)
[2016-09-05 18:50] LABS: APTT (PATIENT) 78.8 SEC (24.3-30.1)
[2016-09-05] MEDS: DONEPEZIL HCL 5 MG TAB PO SCH (19:44)
[2016-09-05] MEDS: ATORVASTATIN 40 MG TAB PO SCH (19:44)
[2016-09-06] VITALS (9 sets, daily range): BP systolic 138–177; BP diastolic 63–87; PULSE 68–89; RESP 16–24; TEMP 97.1–98.9; O2SAT 91–96
[2016-09-06] MEDS: CHLORHEXIDINE GLUCONATE 2 % 1 PACK (2 CLOTHS) TOP SCH (04:00)
[2016-09-06 04:08] LABS: HEMATOCRIT 28.1 % (35.0-46.0); REVIEW FLAG FINAL
[2016-09-06 04:20] LABS: INTERNATIONAL NORMALIZED RATIO 1.5 RATIO; PROTHROMBIN TIME - PATIENT 17.4 SEC (9.8-11.6)
[2016-09-06 04:34] LABS: BICARBONATE 25.4 MEQ/L (21.0-32.0); POTASSIUM 3.2 MEQ/L (3.5-5.1)
[2016-09-06] MEDS: ARTIFICIAL TEARS OPTH SOLN 15 ML BTL EACH EYE SCH ×3 (09:00→16:35)
[2016-09-06] MEDS: ISOSORBIDE MONONITRATE 60 MG TAB PO SCH (09:51)
[2016-09-06] MEDS: ATENOLOL 25 MG TAB PO SCH (09:51)
[2016-09-06] MEDS: QUEtiapine FUMARATE 25 MG TAB PO SCH ×2 (09:51→22:40)
[2016-09-06] MEDS: SERTRALINE HCL 50 MG TAB PO SCH (09:51)
[2016-09-06] MEDS: MEMANTINE HCL 10 MG TAB PO SCH ×2 (09:51→22:40)
[2016-09-06] MEDS: DOCUSATE SODIUM 100 MG CAP PO SCH ×2 (09:51→22:40)
[2016-09-06] MEDS: CEFUROXIME AXETIL 250 MG TAB PO SCH ×2 (09:51→22:40)
[2016-09-06] MEDS: SODIUM CHLORIDE 0.9% FLUSH 5 ML FLUSH IV FLUSH SCH ×2 (09:53→22:41)
[2016-09-06 11:38] LABS: APTT (PATIENT) 49.4 SEC (24.3-30.1)
--- NOTE | 2016-09-06 12:22 | HHI.PR ---
Subjective Remarks in no acute distress. no fever. Objective Vitals Vital Signs Date Time Temp Pulse Resp B/P Pulse Ox O2 Delivery O2 Flow Rate FiO2 09/06/16 08:00 98.9 76 20 169/79 91 09/06/16 04:00 97.1 89 16 162/87 93 09/06/16 03:30 72 09/06/16 00:26 98.5 70 16 162/69 94 09/05/16 20:36 98.3 84 16 155/76 95 09/05/16 16:00 98.4 69 16 164/75 94 I/O 09/05/16 09/05/16 09/05/16 09/06/16 09/06/16 09/06/16 06:59 14:59 22:59 06:59 14:59 22:59 Intake Total 360 ml 350 ml 522 ml Output Total 400 ml 500 ml Balance 360 ml -50 ml 22 ml Intake Oral 360 ml 350 ml 200 ml IV Total 322 ml Output Urine Total 400 ml 500 ml # Voids 2 # Bowel Movements 0 0 Result Diagram: 09/06/16 0345 09/06/16 0345 Imaging Last Impressions Chest X-Ray 08/29/16 0000 Signed Impressions: Service Date/Time: Monday, August 29, 2016 10:57 - CONCLUSION: Stable chest appearance with no acute disease Ruben Castro MD Abdomen/Pelvis CT 08/28/16 0000 Signed Impressions: Service Date/Time: Sunday, August 28, 2016 10:20 - CONCLUSION: 1. Rectus sheath hematoma the left appears unchanged. 2. Bilateral renal cysts. There is a small subcentimeter indeterminate lesion left mid kidney. Long-term followup recommended. 3. Diverticulosis of the colon without diverticulitis. Ray Vizcarra MD Head CT 08/27/16 0000 Signed Impressions: Service Date/Time: Saturday, August 27, 2016 11:42 - CONCLUSION: Atrophy. No acute intracranial process. Wang Marin MD Objective Remarks GENERAL: This is a well-nourished, well-developed patient, in no apparent distress. CARDIOVASCULAR: Regular rate and regular rhythm without murmurs, gallops, or rubs. RESPIRATORY: Clear to auscultation. Breath sounds equal bilaterally. No wheezes , rales, or rhonchi. GASTROINTESTINAL: Abdomen soft, non-tender, nondistended. Normal, active bowel sounds MUSCULOSKELETAL: Extremities without clubbing, cyanosis, or edema. NEURO: awake and alert- oriented to person and partly to place Procedures none Medications and IVs Current Medications Sodium Chloride (NS 1000 ml Inj) 1,000 ml @ 84 mls/hr [id number] IV Last administered on 08/27/16 18:59; Start 08/27/16 at 11:00; Stop 08/28/16 at 08:42 ; Status DC IV Flush (NS Flush) 2 ml UNSCH PRN IV FLUSH FLUSH AFTER USING IV ACCESS; Start 08/27/16 at 10:30 IV Flush (NS Flush) 2 ml BID IV FLUSH Last administered on 09/06/16 09:53; Start 08/27/16 at 21:00 Acetaminophen (Tylenol) 650 mg Q6H PRN PO PAIN 1-3, FEVER >101F; Start at 10:30 Acetaminophen/ Hydrocodone Bitart (Nixa 5-325 Mg) 1 tab Q4H PRN PO PAIN SCALE 1 TO 5 Last administered on 08/28/16 23:01; Start 08/27/16 at 10:30 Morphine Sulfate (Morphine Inj) 2 mg Q2H PRN IV PAIN SCALE 6 TO 10 Last administered on 09/01/16 01:23; Start 08/27/16 at 10:30 Pantoprazole Sodium (Protonix Inj) 40 mg DAILY IV Last administered on 09:00; Start 08/28/16 at 09:00; Stop 08/29/16 at 08:38; Status DC Artificial Tears (Tears Naturale Opth Soln) 1 drop TID EACH EYE Last administered on 09/05/16 16:13; Start 08/27/16 at 13:00 Ondansetron HCl (Zofran Inj) 4 mg Q6H PRN IV NAUSEA OR VOMITING; Start at 10:30 Docusate Sodium (Colace) 100 mg BID PO Last administered on 09/06/16 09:51; Start 08/27/16 at 21:00 Sennosides (Senokot) 17.2 mg Q12H PRN PO CONSTIPATION; Start 08/27/16 at 10:30 Albuterol/ Ipratropium (Duoneb Neb) 1 ampule Q2HR NEB PRN INH WHEEZING; Start 08/27/16 at 10:30 Miscellaneous Information 1 [id number] XX ; Start 08/27/16 at 10:30 Chlorhexidine Gluconate (Chlorhexidine 2% Cloth) Taper DAILY@04 TOP Last administered on 08/31/16 21:35; Start 08/28/16 at 04:00; Stop 08/24/17 at 03:59 Chlorhexidine Gluconate (Chlorhexidine 2% Cloth) 3 pack UNSCH PRN TOP HYGIENIC CARE; Start 08/27/16 at 10:30 Dextrose (D50w (Vial) Inj) 25 ml UNSCH PRN IV PUSH HYPOGLYCEMIA-SEE COMMENTS; Start 08/27/16 at 10:30 Glucagon (Glucagon Inj) 1 mg UNSCH PRN OTHER HYPOGLYCEMIA-SEE COMMENTS; Start 08/27/16 at 10:30 Insulin Human Regular (NovoLIN R SUPPLEMENTAL SCALE) 1 ACHS SLIDING SCALE SQ ; Start 08/27/16 at 11:00; Stop 08/29/16 at 08:38; Status DC Sertraline HCl (Zoloft) 25 mg DAILY PO ; Start 08/28/16 at 09:00; Status UNV Quetiapine Fumarate (SEROquel) 25 mg BID PO Last administered on 09/06/16 09:51 ; Start 08/27/16 at 21:00 Donepezil HCl (Aricept) 10 mg DAILY PO ; Start 08/28/16 at 09:00; Stop 08/28/16 at 09:00; Status DC Donepezil HCl (Aricept) 10 mg HS PO Last administered on 09/05/16 19:44; Start 08/27/16 at 21:00 Memantine (Namenda) 10 mg BID PO Last administered on 09/06/16 09:51; Start at 21:00 Quetiapine Fumarate (SEROquel) 25 mg DAILY PO ; Start 08/28/16 at 09:00; Stop at 09:00; Status DC Sertraline HCl 25 mg 25 mg DAILY PO Last administered on 09/06/16 09:51; Start 08/28/16 at 09:00 Sodium Chloride (NS 1000 ml Inj) 1,000 ml @ 70 mls/hr [id number] IV ; Start at 11:00; Stop 08/27/16 at 11:01; Status DC Acetaminophen 325 mg 325 mg Q4H PRN RECTAL Pain 1-3 T > 101 > 101; Start at 11:00 Sodium Phosphate/ Sodium Chloride (Sodium Phosphate Inj/NS Inj) 155 ml @ 38.75 mls/ hr ONCE ONCE IV Last administered on 08/27/16 13:36; Start 08/27/16 at 13:00; Stop 08/27/16 at 16:59; Status DC Phytonadione (Mephyton) 5 mg ONCE ONCE PO Last administered on 08/27/16 12:45 ; Start 08/27/16 at 12:45; Stop 08/27/16 at 12:46; Status DC Protamine Sulfate (Protamine Sulfate Inj) 25 mg ONCE ONCE IV PUSH Last administered on 08/27/16 15:30; Start 08/27/16 at 15:15; Stop 08/27/16 at 15:18 ; Status DC Furosemide 20 mg 20 mg ONCE ONCE IV PUSH Last administered on 08/28/16 11:43 ; Start 08/28/16 at 10:00; Stop 08/28/16 at 10:01; Status DC Potassium Chloride 10 meq/ Sodium Chloride 1,005 ml @ 75 mls/hr [id number] IV Last administered on 08/29/16 03:38; Start 08/28/16 at 11:00; Stop 08/29/16 at 08:38; Status DC Potassium Chloride 100 ml @ 50 mls/hr Q2H PRN IV For Potassium 2.8 - 3.2 mEq/L ; Start 08/29/16 at 08:45; Stop 08/30/16 at 11:48; Status DC Potassium Chloride (KCl 20 Meq Premix Inj) 100 ml @ 50 mls/hr Q2H PRN IV For Potassium 2.8 - 3.2 mEq/L; Start 08/29/16 at 08:45; Stop 08/30/16 at 11:48; Status DC Potassium Chloride 40 meq 40 meq UNSCH PRN PO/TUBE For Potassium 3.3 - 3.5 mEq/ L Last administered on 08/29/16 09:18; Start 08/29/16 at 08:45; Stop 08/30/16 at 11:48; Status DC Potassium Chloride 100 ml @ 25 mls/hr UNSCH PRN IV For Potassium 3.3 - 3.5 mEq /L; Start 08/29/16 at 08:45; Stop 08/30/16 at 11:48; Status DC Potassium Chloride 100 ml @ 50 mls/hr Q2H PRN IV For Potassium 3.3 - 3.5 mEq/L ; Start 08/29/16 at 08:45; Stop 08/30/16 at 11:49; Status DC Magnesium Sulfate/ Sodium Chloride (Magnesium Sulfate Inj/NS Inj) 100 ml @ 50 mls/hr UNSCH PRN IV For Magnesium 0.9 - 1.1 mg/dL; Start 08/29/16 at 08:45; Stop 08/30/16 at 11:49; Status DC Magnesium Oxide 800 mg 800 mg UNSCH PRN PO For Magnesium 1.2 - 1.6 mg/dL; Start 08/29/16 at 08:45; Stop 08/30/16 at 11:49; Status DC Magnesium Sulfate/ Sodium Chloride (Magnesium Sulfate Inj/NS Inj) 100 ml @ 50 mls/hr UNSCH PRN IV For Magnesium 1.2 - 1.6 mg/dL; Start 08/29/16 at 08:45; Stop 08/30/16 at 11:49; Status DC Potassium Phosphate 2000 mg 2,000 mg Q4H PRN PO For Phosphorus < 2.5 mg/dL; Start 08/29/16 at 08:45; Stop 08/30/16 at 11:50; Status DC Sodium Phosphate/ Sodium Chloride (Sodium Phosphate Inj/NS 250 ml Inj) 250 ml @ 42 mls/hr UNSCH PRN IV For Phosphorus < 2.5 mg/dL Last administered on t 15:57; Start 08/29/16 at 08:45; Stop 08/30/16 at 11:50; Status DC Potassium Chloride (KCl 40 Meq/30 ml Liq) 40 meq UNSCH PRN PO/TUBE SEE LABEL COMMENTS; Start 08/29/16 at 08:45; Stop 08/30/16 at 11:50; Status DC Potassium Phosphate 2000 mg 2,000 mg UNSCH PRN PO/TUBE SEE LABEL COMMENTS; Start 08/29/16 at 08:45; Stop 08/30/16 at 11:50; Status DC Potassium Phosphate/Sodium Chloride (Potassium Phosphate Inj/NS 250 ml Inj) 260 ml @ 42 mls/hr UNSCH PRN IV SEE LABEL COMMENTS; Start 08/29/16 at 08:45; Stop 08/30/16 at 11:50; Status DC Hydralazine HCl (Apresoline Inj) 10 mg Q6H PRN IV SBP> OR = 180, DBP> OR = 100 Last administered on 09/01/16 06:21; Start 08/29/16 at 08:45 Clonidine 0.1 mg 0.1 mg Q6H PRN PO SBP> OR = 180, DBP> OR = 100; Start at 08:45 Heparin Sodium/ Dextrose (Heparin-D5W Inj) 250 ml @ 0 mls/hr TITRATE IV Last administered on 09/05/16 05:46; Start 08/30/16 at 07:45 Atenolol (Tenormin) 12.5 mg DAILY PO Last administered on 09/05/16 09:21; Start 08/30/16 at 12:00; Stop 09/05/16 at 10:38; Status DC Atorvastatin Calcium (Lipitor) 40 mg HS PO Last administered on 09/05/16 19:44 ; Start 08/30/16 at 21:00 Isosorbide Mononitrate (Imdur) 60 mg DAILY PO Last administered on 09/06/16 09: 51; Start 08/31/16 at 09:00 Miscellaneous (Pill Splitter) 1 ea UNSCH PRN OTHER SEE LABEL COMMENTS Last administered on 09/05/16 12:40; Start 08/30/16 at 12:00 Cefuroxime Axetil 250 mg 250 mg Q12HR PO Last administered on 09/06/16 09:51; Start 08/31/16 at 09:00; Stop 09/07/16 at 08:59 Sodium Chloride (NS 1000 ml Inj) 1,000 ml @ 40 mls/hr Q24H IV Last administered on 09/05/16 09:25; Start 08/31/16 at 16:00; Status Hold Potassium Chloride (KCl) 30 meq ONCE ONCE PO Last administered on 09/03/16 11 :36; Start 09/03/16 at 11:15; Stop 09/03/16 at 11:16; Status DC Potassium Chloride (KCl) 30 meq ONCE ONCE PO Last administered on 09/03/16 13 :06; Start 09/03/16 at 14:00; Stop 09/03/16 at 14:01; Status DC Potassium Chloride (KCl) 40 meq ONCE ONCE PO Last administered on 09/03/16 17 :04; Start 09/03/16 at 18:00; Stop 09/03/16 at 18:01; Status DC Warfarin Sodium (Coumadin) 5 mg DAILY@1600 PO Last administered on 09/05/16 16: 11; Start 09/03/16 at 16:00 Patient Medication Teaching (Coumadin Booklet) 1 ONCE ONCE XX Last administered on 09/03/16 15:24; Start 09/03/16 at 16:00; Stop 09/03/16 at 16:01 ; Status DC Haloperidol Lactate (Haldol Inj) 2 mg ONCE ONCE IM Last administered on 23:45; Start 09/03/16 at 23:45; Stop 09/03/16 at 23:46; Status DC Atenolol (Tenormin) 25 mg DAILY PO Last administered on 09/06/16 09:51; Start 09/06/16 at 09:00 Atenolol (Tenormin) 12.5 mg ONCE ONCE PO Last administered on 09/05/16 12:39; Start 09/05/16 at 10:45; Stop 09/05/16 at 10:57; Status DC A/P Assessment and Plan A/P Dementia disorder Behavioral disturbance NOS Continue Seroquel 25 mg by mouth twice daily for anxiety as indicated Continue Namenda 10 mg twice a day and Aricept 10 mg at night for dementia Continue sertraline 25 mg by mouth daily for depression continue Aricept Neuro checks Acetaminophen for fever Nixa/morphine for pain management Psychiatry has accepted patient once medically clear History of hypertension History dyslipidemia History of aVR History of coronary disease status post CABG Elevated HDL 2-D echocardiogram is ordered. Results are as expected with AV prosthesis Holding lisinopril 2.5 mg daily light of acute kidney injury. Holding aspirin 81 mg by mouth daily in light of hematoma Anti-hypertensives as needed. increased atenolol . continue Imdur with hold parameters. Also restarted Lipitor. Anticoagulation with IV heparin to be continued - resumed coumadin along with bridging- hematology following. Rectus sheath hematoma. Stable Patient to continue regular diet Colace/as needed Senokot for bowel regimen CT abdomen/posterior left rectus sheath hematoma which is stable on repeat CT. resumed coumadin and will monitor closely. Acute kidney injury-improved Avoid nephrotoxic drugs Lisinopril be held Accurate I/Os Monitor urine output Anemia Thrombocytopenia Coumadin use Received 2 units FFP and 25 mg protamine along with t PRBCs resumed coumadin will monitor H/H hematology following. Gram-negative yahaira UTI. Started Ceftin. Blood cultures 2 negative to date Hypernatremia. Improved low grade fever- resolved. hypokalemia; will replace as needed. PT evaluate and treat Prophylaxis - GI - Protonix - DVT - SCD/pharmacological prophylaxis/ on heparin drip/ coumadin. Discharge Planning dc to psych unit when INR is therapeutic. Mele Ashton MD Sep 06, 2016 12:19
[2016-09-06] MEDS ORDERED: POTASSIUM CHLORIDE 25 MEQ EFFERVESCENT TAB PO ONE ×2 (13:00→16:00)
[2016-09-06 16:36] LABS: APTT (PATIENT) 36.1 SEC (24.3-30.1)
[2016-09-06] MEDS: WARFARIN SOD 5 MG TAB PO SCH (16:56)
[2016-09-06] MEDS: DONEPEZIL HCL 5 MG TAB PO SCH (22:40)
[2016-09-06] MEDS: ATORVASTATIN 40 MG TAB PO SCH (22:40)
[2016-09-06 23:15] LABS: APTT (PATIENT) 52.7 SEC (24.3-30.1)
[2016-09-07] VITALS (7 sets, daily range): BP systolic 109–153; BP diastolic 59–90; PULSE 65–89; RESP 18–20; TEMP 97.2–98.4; O2SAT 92–100
[2016-09-07] MEDS: CHLORHEXIDINE GLUCONATE 2 % 1 PACK (2 CLOTHS) TOP SCH (04:00)
[2016-09-07] MEDS: HEPARIN-D5W INJ 250 ML IV SCH (04:44)
[2016-09-07 06:13] LABS: HEMATOCRIT 29.3 % (35.0-46.0); REVIEW FLAG FINAL
[2016-09-07 06:29] LABS: APTT (PATIENT) 53.7 SEC (24.3-30.1); INTERNATIONAL NORMALIZED RATIO 1.9 RATIO
--- NOTE | 2016-09-07 09:38 | HHI.PYPN ---
Subjective Remarks Patient is a seen today for psychiatric reevaluation, she is clam, cooperative and pleasant, communication was performed in primary language, [place], patient states she is happy "because I am going home soon", she denies depression, anxiety, danilo and perceptual disturbances. She denies SI/HI.She denies visual and auditory hallucinations. She is pleasantly confused, partially oriented in time and place. NO agitation, mood or behavior dyscontrol observed. Review of Systems Constitutional: DENIES: Diaphoretic episodes, Fatigue, Fever, Weight gain, Weight loss, Chills, Dizziness, Change in appetite, Night Sweats Endocrine: DENIES: Abnorml menstrual pattern, Heat/cold intolerance, Polydipsia , Polyuria, Polyphagia Respiratory: DENIES: Apneas, Cough, Snoring, Wheezing, Hemoptysis, Sputum production, Shortness of breath Musculoskeletal: COMPLAINS OF: Back pain, DENIES: Joint pain, Muscle aches, Stiffness, Joint Swelling, Neck pain Integumentary: DENIES: Abnormal pigmentation, Pruritus, Rash, Nail changes, Breast masses, Breast skin changes, Nipple discharge Hematologic/lymphatic: DENIES: Bruising, Lymphadenopathy Immunologic/allergic: DENIES: Eczema, Urticaria Neurologic: DENIES: Abnormal gait, Headache, Localized weakness, Paresthesias, Seizures, Speech Problems, Tremor, Poor Balance Psychiatric: DENIES: Anxiety, Confusion, Mood changes, Depression, Hallucinations, Agitation, Suicidal Ideation, Homicidal Ideation, Delusions Objective Alert: Yes [place]: Person Mood: Calm Affect: Restricted Memory Intact: Immediate Hallucinations: Other (She denies ) Delusions: No Delusion Type: Other (none) Suicidal: Ideation (no SI) Homicidal: Ideation (no SI) Insight/Judgement Fair Labs Test 09/06/16 09/06/16 09/06/16 09/07/16 10:50 16:17 22:54 05:50 Activated Partial 49.4 SEC 36.1 SEC 52.7 SEC 53.7 SEC Thromboplast Time Hemoglobin 10.2 GM/DL Hematocrit 29.3 % Prothrombin Time 22.0 SEC Prothromb Time International 1.9 RATIO Ratio Potassium Level 3.3 MEQ/L Vitals/IOs Vital Signs Date Time Temp Pulse Resp B/P Pulse Ox O2 Delivery O2 Flow Rate FiO2 09/07/16 08:00 98.1 71 18 149/77 94 09/07/16 04:00 Room Air 09/05/16 10:05 21 Intake and Output 09/06/16 09/06/16 09/07/16 08:00 16:00 00:00 Intake Total 522 ml 480 ml Output Total 500 ml Balance 22 ml 480 ml Assessment & Plan Problem List: (1) Dementia with behavioral disturbance Assessment & Plan: Patient seems to be at baseline at this moment, with visible cognitive impairment which is part of dementia, but not acute depression , anxiety, danilo, agitation, aggressive behavior or psychosis at this time. Continue current psychotropic regiment. ICD Code: F03.91 Assessment & Plan Estimated LOS: days Justification for Cont. Inpt. She does not meet criteria for psychiatric admission at this moment. Dillon act can be lifted. Meir Samayoa MD Sep 07, 2016 09:37
--- NOTE | 2016-09-07 10:11 | HHI.PR ---
Subjective Remarks resting comfortably with no distress. no fever. looks comfortable. Objective Vitals Vital Signs Date Time Temp Pulse Resp B/P Pulse Ox O2 Delivery O2 Flow Rate FiO2 09/07/16 08:00 98.1 71 18 149/77 94 09/07/16 04:00 Room Air 09/07/16 04:00 98.4 68 20 151/71 92 09/07/16 00:00 98.4 74 20 109/67 100 09/07/16 00:00 Room Air 09/06/16 20:04 80 09/06/16 20:00 Room Air 09/06/16 20:00 98.1 72 24 177/81 96 09/06/16 16:00 97.4 71 20 138/63 94 09/06/16 12:39 94 09/06/16 12:00 98.1 68 20 145/67 91 I/O 09/06/16 09/06/16 09/06/16 09/07/16 09/07/16 09/07/16 07:00 15:00 23:00 07:00 15:00 23:00 Intake Total 522 ml 480 ml Output Total 500 ml Balance 22 ml 480 ml Intake Oral 200 ml 480 ml IV Total 322 ml Output Urine Total 500 ml # Voids 1 2 # Bowel Movements 0 1 2 Result Diagram: 09/07/16 0550 09/07/16 0550 Imaging Last Impressions Chest X-Ray 08/29/16 0000 Signed Impressions: Service Date/Time: Monday, August 29, 2016 10:57 - CONCLUSION: Stable chest appearance with no acute disease Ruben Castro MD Abdomen/Pelvis CT 08/28/16 0000 Signed Impressions: Service Date/Time: Sunday, August 28, 2016 10:20 - CONCLUSION: 1. Rectus sheath hematoma the left appears unchanged. 2. Bilateral renal cysts. There is a small subcentimeter indeterminate lesion left mid kidney. Long-term followup recommended. 3. Diverticulosis of the colon without diverticulitis. Ray Vizcarra MD Head CT 08/27/16 0000 Signed Impressions: Service Date/Time: Saturday, August 27, 2016 11:42 - CONCLUSION: Atrophy. No acute intracranial process. Wang Marin MD Objective Remarks GENERAL: This is a well-nourished, well-developed patient, in no apparent distress. CARDIOVASCULAR: Regular rate and regular rhythm without murmurs, gallops, or rubs. RESPIRATORY: Clear to auscultation. Breath sounds equal bilaterally. No wheezes , rales, or rhonchi. GASTROINTESTINAL: Abdomen soft, non-tender, nondistended. Normal, active bowel sounds MUSCULOSKELETAL: Extremities without clubbing, cyanosis, or edema. NEURO: awake and alert- oriented to person and partly to place Procedures none Medications and IVs Current Medications Sodium Chloride (NS 1000 ml Inj) 1,000 ml @ 84 mls/hr [id number] IV Last administered on 08/27/16 18:59; Start 08/27/16 at 11:00; Stop 08/28/16 at 08:42 ; Status DC IV Flush (NS Flush) 2 ml UNSCH PRN IV FLUSH FLUSH AFTER USING IV ACCESS; Start 08/27/16 at 10:30 IV Flush (NS Flush) 2 ml BID IV FLUSH Last administered on 09/06/16 22:41; Start 08/27/16 at 21:00 Acetaminophen (Tylenol) 650 mg Q6H PRN PO PAIN 1-3, FEVER >101F; Start at 10:30 Acetaminophen/ Hydrocodone Bitart ([place] 5-325 Mg) 1 tab Q4H PRN PO PAIN SCALE 1 TO 5 Last administered on 08/28/16 23:01; Start 08/27/16 at 10:30 Morphine Sulfate (Morphine Inj) 2 mg Q2H PRN IV PAIN SCALE 6 TO 10 Last administered on 09/01/16 01:23; Start 08/27/16 at 10:30 Pantoprazole Sodium (Protonix Inj) 40 mg DAILY IV Last administered on 09:00; Start 08/28/16 at 09:00; Stop 08/29/16 at 08:38; Status DC Artificial Tears (Tears Naturale Opth Soln) 1 drop TID EACH EYE Last administered on 09/06/16 16:35; Start 08/27/16 at 13:00 Ondansetron HCl (Zofran Inj) 4 mg Q6H PRN IV NAUSEA OR VOMITING; Start at 10:30 Docusate Sodium (Colace) 100 mg BID PO Last administered on 09/06/16 22:40; Start 08/27/16 at 21:00 Sennosides (Senokot) 17.2 mg Q12H PRN PO CONSTIPATION; Start 08/27/16 at 10:30 Albuterol/ Ipratropium (Duoneb Neb) 1 ampule Q2HR NEB PRN INH WHEEZING; Start 08/27/16 at 10:30 Miscellaneous Information 1 [id number] XX ; Start 08/27/16 at 10:30 Chlorhexidine Gluconate (Chlorhexidine 2% Cloth) Taper DAILY@04 TOP Last administered on 08/31/16 21:35; Start 08/28/16 at 04:00; Stop 08/24/17 at 03:59 Chlorhexidine Gluconate (Chlorhexidine 2% Cloth) 3 pack UNSCH PRN TOP HYGIENIC CARE; Start 08/27/16 at 10:30 Dextrose (D50w (Vial) Inj) 25 ml UNSCH PRN IV PUSH HYPOGLYCEMIA-SEE COMMENTS; Start 08/27/16 at 10:30 Glucagon (Glucagon Inj) 1 mg UNSCH PRN OTHER HYPOGLYCEMIA-SEE COMMENTS; Start 08/27/16 at 10:30 Insulin Human Regular (NovoLIN R SUPPLEMENTAL SCALE) 1 ACHS SLIDING SCALE SQ ; Start 08/27/16 at 11:00; Stop 08/29/16 at 08:38; Status DC Sertraline HCl (Zoloft) 25 mg DAILY PO ; Start 08/28/16 at 09:00; Status UNV Quetiapine Fumarate (SEROquel) 25 mg BID PO Last administered on 09/06/16 22:40 ; Start 08/27/16 at 21:00 Donepezil HCl (Aricept) 10 mg DAILY PO ; Start 08/28/16 at 09:00; Stop 08/28/16 at 09:00; Status DC Donepezil HCl (Aricept) 10 mg HS PO Last administered on 09/06/16 22:40; Start 08/27/16 at 21:00 Memantine (Namenda) 10 mg BID PO Last administered on 09/06/16 22:40; Start at 21:00 Quetiapine Fumarate (SEROquel) 25 mg DAILY PO ; Start 08/28/16 at 09:00; Stop at 09:00; Status DC Sertraline HCl 25 mg 25 mg DAILY PO Last administered on 09/06/16 09:51; Start 08/28/16 at 09:00 Sodium Chloride (NS 1000 ml Inj) 1,000 ml @ 70 mls/hr [id number] IV ; Start at 11:00; Stop 08/27/16 at 11:01; Status DC Acetaminophen 325 mg 325 mg Q4H PRN RECTAL Pain 1-3 T > 101 > 101; Start at 11:00 Sodium Phosphate/ Sodium Chloride (Sodium Phosphate Inj/NS Inj) 155 ml @ 38.75 mls/ hr ONCE ONCE IV Last administered on 08/27/16 13:36; Start 08/27/16 at 13:00; Stop 08/27/16 at 16:59; Status DC Phytonadione (Mephyton) 5 mg ONCE ONCE PO Last administered on 08/27/16 12:45 ; Start 08/27/16 at 12:45; Stop 08/27/16 at 12:46; Status DC Protamine Sulfate (Protamine Sulfate Inj) 25 mg ONCE ONCE IV PUSH Last administered on 08/27/16 15:30; Start 08/27/16 at 15:15; Stop 08/27/16 at 15:18 ; Status DC Furosemide 20 mg 20 mg ONCE ONCE IV PUSH Last administered on 08/28/16 11:43 ; Start 08/28/16 at 10:00; Stop 08/28/16 at 10:01; Status DC Potassium Chloride 10 meq/ Sodium Chloride 1,005 ml @ 75 mls/hr [id number] IV Last administered on 08/29/16 03:38; Start 08/28/16 at 11:00; Stop 08/29/16 at 08:38; Status DC Potassium Chloride 100 ml @ 50 mls/hr Q2H PRN IV For Potassium 2.8 - 3.2 mEq/L ; Start 08/29/16 at 08:45; Stop 08/30/16 at 11:48; Status DC Potassium Chloride (KCl 20 Meq Premix Inj) 100 ml @ 50 mls/hr Q2H PRN IV For Potassium 2.8 - 3.2 mEq/L; Start 08/29/16 at 08:45; Stop 08/30/16 at 11:48; Status DC Potassium Chloride 40 meq 40 meq UNSCH PRN PO/TUBE For Potassium 3.3 - 3.5 mEq/ L Last administered on 08/29/16 09:18; Start 08/29/16 at 08:45; Stop 08/30/16 at 11:48; Status DC Potassium Chloride 100 ml @ 25 mls/hr UNSCH PRN IV For Potassium 3.3 - 3.5 mEq /L; Start 08/29/16 at 08:45; Stop 08/30/16 at 11:48; Status DC Potassium Chloride 100 ml @ 50 mls/hr Q2H PRN IV For Potassium 3.3 - 3.5 mEq/L ; Start 08/29/16 at 08:45; Stop 08/30/16 at 11:49; Status DC Magnesium Sulfate/ Sodium Chloride (Magnesium Sulfate Inj/NS Inj) 100 ml @ 50 mls/hr UNSCH PRN IV For Magnesium 0.9 - 1.1 mg/dL; Start 08/29/16 at 08:45; Stop 08/30/16 at 11:49; Status DC Magnesium Oxide 800 mg 800 mg UNSCH PRN PO For Magnesium 1.2 - 1.6 mg/dL; Start 08/29/16 at 08:45; Stop 08/30/16 at 11:49; Status DC Magnesium Sulfate/ Sodium Chloride (Magnesium Sulfate Inj/NS Inj) 100 ml @ 50 mls/hr UNSCH PRN IV For Magnesium 1.2 - 1.6 mg/dL; Start 08/29/16 at 08:45; Stop 08/30/16 at 11:49; Status DC Potassium Phosphate 2000 mg 2,000 mg Q4H PRN PO For Phosphorus < 2.5 mg/dL; Start 08/29/16 at 08:45; Stop 08/30/16 at 11:50; Status DC Sodium Phosphate/ Sodium Chloride (Sodium Phosphate Inj/NS 250 ml Inj) 250 ml @ 42 mls/hr UNSCH PRN IV For Phosphorus < 2.5 mg/dL Last administered on t 15:57; Start 08/29/16 at 08:45; Stop 08/30/16 at 11:50; Status DC Potassium Chloride (KCl 40 Meq/30 ml Liq) 40 meq UNSCH PRN PO/TUBE SEE LABEL COMMENTS; Start 08/29/16 at 08:45; Stop 08/30/16 at 11:50; Status DC Potassium Phosphate 2000 mg 2,000 mg UNSCH PRN PO/TUBE SEE LABEL COMMENTS; Start 08/29/16 at 08:45; Stop 08/30/16 at 11:50; Status DC Potassium Phosphate/Sodium Chloride (Potassium Phosphate Inj/NS 250 ml Inj) 260 ml @ 42 mls/hr UNSCH PRN IV SEE LABEL COMMENTS; Start 08/29/16 at 08:45; Stop 08/30/16 at 11:50; Status DC Hydralazine HCl (Apresoline Inj) 10 mg Q6H PRN IV SBP> OR = 180, DBP> OR = 100 Last administered on 09/01/16 06:21; Start 08/29/16 at 08:45 Clonidine 0.1 mg 0.1 mg Q6H PRN PO SBP> OR = 180, DBP> OR = 100; Start at 08:45 Heparin Sodium/ Dextrose (Heparin-D5W Inj) 250 ml @ 0 mls/hr TITRATE IV Last administered on 09/07/16 04:44; Start 08/30/16 at 07:45 Atenolol (Tenormin) 12.5 mg DAILY PO Last administered on 09/05/16 09:21; Start 08/30/16 at 12:00; Stop 09/05/16 at 10:38; Status DC Atorvastatin Calcium (Lipitor) 40 mg HS PO Last administered on 09/06/16 22:40 ; Start 08/30/16 at 21:00 Isosorbide Mononitrate (Imdur) 60 mg DAILY PO Last administered on 09/06/16 09: 51; Start 08/31/16 at 09:00 Miscellaneous (Pill Splitter) 1 ea UNSCH PRN OTHER SEE LABEL COMMENTS Last administered on 09/05/16 12:40; Start 08/30/16 at 12:00 Cefuroxime Axetil 250 mg 250 mg Q12HR PO Last administered on 09/06/16 22:40; Start 08/31/16 at 09:00; Stop 09/07/16 at 08:59; Status DC Sodium Chloride (NS 1000 ml Inj) 1,000 ml @ 40 mls/hr Q24H IV Last administered on 09/05/16 09:25; Start 08/31/16 at 16:00; Status Hold Potassium Chloride (KCl) 30 meq ONCE ONCE PO Last administered on 09/03/16 11 :36; Start 09/03/16 at 11:15; Stop 09/03/16 at 11:16; Status DC Potassium Chloride (KCl) 30 meq ONCE ONCE PO Last administered on 09/03/16 13 :06; Start 09/03/16 at 14:00; Stop 09/03/16 at 14:01; Status DC Potassium Chloride (KCl) 40 meq ONCE ONCE PO Last administered on 09/03/16 17 :04; Start 09/03/16 at 18:00; Stop 09/03/16 at 18:01; Status DC Warfarin Sodium (Coumadin) 5 mg DAILY@1600 PO Last administered on 09/06/16 16: 56; Start 09/03/16 at 16:00 Patient Medication Teaching (Coumadin Booklet) 1 ONCE ONCE XX Last administered on 09/03/16 15:24; Start 09/03/16 at 16:00; Stop 09/03/16 at 16:01 ; Status DC Haloperidol Lactate (Haldol Inj) 2 mg ONCE ONCE IM Last administered on 23:45; Start 09/03/16 at 23:45; Stop 09/03/16 at 23:46; Status DC Atenolol (Tenormin) 25 mg DAILY PO Last administered on 09/06/16 09:51; Start 09/06/16 at 09:00 Atenolol (Tenormin) 12.5 mg ONCE ONCE PO Last administered on 09/05/16 12:39; Start 09/05/16 at 10:45; Stop 09/05/16 at 10:57; Status DC Potassium Bicarb/ Potassium Chloride (K-Lyte Cl Eff) 25 meq ONCE ONCE PO Last administered on 09/06/16 13:00; Start 09/06/16 at 13:00; Stop 09/06/16 at 13: 01; Status DC Potassium Bicarb/ Potassium Chloride (K-Lyte Cl Eff) 25 meq ONCE ONCE PO Last administered on 09/06/16 16:58; Start 09/06/16 at 16:00; Stop 09/06/16 at 16: 01; Status DC A/P Assessment and Plan A/P Dementia disorder Behavioral disturbance NOS Continue Seroquel 25 mg by mouth twice daily for anxiety as indicated Continue Namenda 10 mg twice a day and Aricept 10 mg at night for dementia Continue sertraline 25 mg by mouth daily for depression continue Aricept Neuro checks Acetaminophen for fever [place]/morphine for pain management Psychiatry follow-up appreciated; mac act lifted- patient does not meet the criteria for admission to psych. History of hypertension History dyslipidemia History of aVR History of coronary disease status post CABG Elevated HDL 2-D echocardiogram is ordered. Results are as expected with AV prosthesis Holding lisinopril 2.5 mg daily light of acute kidney injury. Holding aspirin 81 mg by mouth daily in light of hematoma Anti-hypertensives as needed. increased atenolol . continue Imdur with hold parameters. Also restarted Lipitor. Anticoagulation with IV heparin to be continued - resumed coumadin along with bridging- hematology following ( spoke with on 09/06) Rectus sheath hematoma. Stable Patient to continue regular diet Colace/as needed Senokot for bowel regimen CT abdomen/posterior left rectus sheath hematoma which is stable on repeat CT. resumed coumadin and will monitor closely. Acute kidney injury-improved Avoid nephrotoxic drugs Lisinopril be held Accurate I/Os Monitor urine output Anemia Thrombocytopenia Coumadin use Received 2 units FFP and 25 mg protamine along with t PRBCs resumed coumadin will monitor H/H hematology following. Gram-negative yahaira UTI. Started Ceftin. Blood cultures 2 negative to date Hypernatremia. Improved low grade fever- resolved. hypokalemia; will replace as needed. PT evaluate and treat Prophylaxis - GI - Protonix - DVT - SCD/pharmacological prophylaxis/ on heparin drip/ coumadin. Discharge Planning case management consulted for dc planning to rehab. Mele Ashton MD Sep 07, 2016 10:11
[2016-09-07] MEDS: DOCUSATE SODIUM 100 MG CAP PO SCH ×2 (10:16→19:32)
[2016-09-07] MEDS: MEMANTINE HCL 10 MG TAB PO SCH ×2 (10:16→19:33)
[2016-09-07] MEDS: ATENOLOL 25 MG TAB PO SCH (10:16)
[2016-09-07] MEDS: ISOSORBIDE MONONITRATE 60 MG TAB PO SCH (10:16)
[2016-09-07] MEDS: QUEtiapine FUMARATE 25 MG TAB PO SCH ×2 (10:16→19:33)
[2016-09-07] MEDS: SERTRALINE HCL 50 MG TAB PO SCH (10:16)
[2016-09-07] MEDS: ARTIFICIAL TEARS OPTH SOLN 15 ML BTL EACH EYE SCH ×3 (10:17→18:06)
[2016-09-07] MEDS: SODIUM CHLORIDE 0.9% FLUSH 5 ML FLUSH IV FLUSH SCH ×2 (10:17→19:33)
[2016-09-07] MEDS ORDERED: POTASSIUM CHLORIDE 25 MEQ EFFERVESCENT TAB PO ONE ×2 (10:30→14:00)
[2016-09-07] MEDS: WARFARIN SOD 5 MG TAB PO SCH (15:17)
[2016-09-07] MEDS: ATORVASTATIN 40 MG TAB PO SCH (19:33)
[2016-09-07] MEDS: DONEPEZIL HCL 5 MG TAB PO SCH (19:33)
[2016-09-08 00:02] VITALS: BP 115/58; PULSE 73; RESP 16; TEMP 98.7; O2SAT 95
[2016-09-08] MEDS: CHLORHEXIDINE GLUCONATE 2 % 1 PACK (2 CLOTHS) TOP SCH (02:27)
[2016-09-08 04:27] VITALS: BP 154/73; PULSE 92; RESP 16; TEMP 98.7; O2SAT 95
[2016-09-08 08:00] VITALS: BP 144/68; PULSE 76; RESP 20; TEMP 98.7; O2SAT 96
[2016-09-08 08:21] LABS: APTT (PATIENT) 54.4 SEC (24.3-30.1); INTERNATIONAL NORMALIZED RATIO 2.8 RATIO; PROTHROMBIN TIME - PATIENT 32.6 SEC (9.8-11.6)
[2016-09-08] MEDS: SERTRALINE HCL 50 MG TAB PO SCH (09:01)
[2016-09-08] MEDS: QUEtiapine FUMARATE 25 MG TAB PO SCH ×2 (09:01→19:55)
[2016-09-08] MEDS: ATENOLOL 25 MG TAB PO SCH (09:01)
[2016-09-08] MEDS: ISOSORBIDE MONONITRATE 60 MG TAB PO SCH (09:01)
[2016-09-08] MEDS: DOCUSATE SODIUM 100 MG CAP PO SCH ×2 (09:01→19:55)
[2016-09-08] MEDS: MEMANTINE HCL 10 MG TAB PO SCH ×2 (09:01→19:55)
[2016-09-08] MEDS: ARTIFICIAL TEARS OPTH SOLN 15 ML BTL EACH EYE SCH ×3 (09:02→17:40)
[2016-09-08] MEDS: SODIUM CHLORIDE 0.9% FLUSH 5 ML FLUSH IV FLUSH SCH ×2 (09:02→19:59)
--- NOTE | 2016-09-08 10:17 | HHI.PR ---
Subjective Remarks resting comfortably with no distress. d/w the RN and no acute issues over night. Objective Vitals Vital Signs Date Time Temp Pulse Resp B/P Pulse Ox O2 Delivery O2 Flow Rate FiO2 09/08/16 08:00 98.7 76 20 144/68 96 09/08/16 04:27 98.7 92 16 154/73 95 09/08/16 00:02 98.7 73 16 115/58 95 09/07/16 20:21 98.3 72 18 153/69 95 09/07/16 20:00 72 09/07/16 20:00 Room Air 09/07/16 16:30 97.2 65 18 146/90 93 09/07/16 12:00 98.3 89 18 114/59 97 I/O 09/07/16 09/07/16 09/07/16 09/08/16 09/08/16 09/08/16 07:00 15:00 23:00 07:00 15:00 23:00 Intake Total 2 ml 500 ml 240 ml Balance 2 ml 500 ml 240 ml Intake Oral 500 ml 240 ml IV Total 2 ml # Voids 2 2 # Bowel Movements 0 Result Diagram: 09/07/16 0550 09/08/16 0733 Imaging Last Impressions Chest X-Ray 08/29/16 0000 Signed Impressions: Service Date/Time: Monday, August 29, 2016 10:57 - CONCLUSION: Stable chest appearance with no acute disease Ruben Castro MD Abdomen/Pelvis CT 08/28/16 0000 Signed Impressions: Service Date/Time: Sunday, August 28, 2016 10:20 - CONCLUSION: 1. Rectus sheath hematoma the left appears unchanged. 2. Bilateral renal cysts. There is a small subcentimeter indeterminate lesion left mid kidney. Long-term followup recommended. 3. Diverticulosis of the colon without diverticulitis. Ray Vizcarra MD Head CT 08/27/16 0000 Signed Impressions: Service Date/Time: Saturday, August 27, 2016 11:42 - CONCLUSION: Atrophy. No acute intracranial process. Wang Marin MD Objective Remarks GENERAL: This is a well-nourished, well-developed patient, in no apparent distress. CARDIOVASCULAR: Regular rate and regular rhythm without murmurs, gallops, or rubs. RESPIRATORY: Clear to auscultation. Breath sounds equal bilaterally. No wheezes , rales, or rhonchi. GASTROINTESTINAL: Abdomen soft, non-tender, nondistended. Normal, active bowel sounds MUSCULOSKELETAL: Extremities without clubbing, cyanosis, or edema. NEURO: awake and alert- oriented to person and partly to place Procedures none Medications and IVs Current Medications Sodium Chloride (NS 1000 ml Inj) 1,000 ml @ 84 mls/hr [id number] IV Last administered on 08/27/16 18:59; Start 08/27/16 at 11:00; Stop 08/28/16 at 08:42 ; Status DC IV Flush (NS Flush) 2 ml UNSCH PRN IV FLUSH FLUSH AFTER USING IV ACCESS; Start 08/27/16 at 10:30 IV Flush (NS Flush) 2 ml BID IV FLUSH Last administered on 09/08/16 09:02; Start 08/27/16 at 21:00 Acetaminophen (Tylenol) 650 mg Q6H PRN PO PAIN 1-3, FEVER >101F; Start at 10:30 Acetaminophen/ Hydrocodone Bitart (Gunter 5-325 Mg) 1 tab Q4H PRN PO PAIN SCALE 1 TO 5 Last administered on 08/28/16 23:01; Start 08/27/16 at 10:30 Morphine Sulfate (Morphine Inj) 2 mg Q2H PRN IV PAIN SCALE 6 TO 10 Last administered on 09/01/16 01:23; Start 08/27/16 at 10:30 Pantoprazole Sodium (Protonix Inj) 40 mg DAILY IV Last administered on 09:00; Start 08/28/16 at 09:00; Stop 08/29/16 at 08:38; Status DC Artificial Tears (Tears Naturale Opth Soln) 1 drop TID EACH EYE Last administered on 09/08/16 09:02; Start 08/27/16 at 13:00 Ondansetron HCl (Zofran Inj) 4 mg Q6H PRN IV NAUSEA OR VOMITING; Start at 10:30 Docusate Sodium (Colace) 100 mg BID PO Last administered on 09/08/16 09:01; Start 08/27/16 at 21:00 Sennosides (Senokot) 17.2 mg Q12H PRN PO CONSTIPATION; Start 08/27/16 at 10:30 Albuterol/ Ipratropium (Duoneb Neb) 1 ampule Q2HR NEB PRN INH WHEEZING; Start 08/27/16 at 10:30 Miscellaneous Information 1 [id number] XX ; Start 08/27/16 at 10:30 Chlorhexidine Gluconate (Chlorhexidine 2% Cloth) Taper DAILY@04 TOP Last administered on 08/31/16 21:35; Start 08/28/16 at 04:00; Stop 08/24/17 at 03:59 Chlorhexidine Gluconate (Chlorhexidine 2% Cloth) 3 pack UNSCH PRN TOP HYGIENIC CARE; Start 08/27/16 at 10:30 Dextrose (D50w (Vial) Inj) 25 ml UNSCH PRN IV PUSH HYPOGLYCEMIA-SEE COMMENTS; Start 08/27/16 at 10:30 Glucagon (Glucagon Inj) 1 mg UNSCH PRN OTHER HYPOGLYCEMIA-SEE COMMENTS; Start 08/27/16 at 10:30 Insulin Human Regular (NovoLIN R SUPPLEMENTAL SCALE) 1 ACHS SLIDING SCALE SQ ; Start 08/27/16 at 11:00; Stop 08/29/16 at 08:38; Status DC Sertraline HCl (Zoloft) 25 mg DAILY PO ; Start 08/28/16 at 09:00; Status UNV Quetiapine Fumarate (SEROquel) 25 mg BID PO Last administered on 09/08/16 09:01 ; Start 08/27/16 at 21:00 Donepezil HCl (Aricept) 10 mg DAILY PO ; Start 08/28/16 at 09:00; Stop 08/28/16 at 09:00; Status DC Donepezil HCl (Aricept) 10 mg HS PO Last administered on 09/07/16 19:33; Start 08/27/16 at 21:00 Memantine (Namenda) 10 mg BID PO Last administered on 09/08/16 09:01; Start at 21:00 Quetiapine Fumarate (SEROquel) 25 mg DAILY PO ; Start 08/28/16 at 09:00; Stop at 09:00; Status DC Sertraline HCl 25 mg 25 mg DAILY PO Last administered on 09/08/16 09:01; Start 08/28/16 at 09:00 Sodium Chloride (NS 1000 ml Inj) 1,000 ml @ 70 mls/hr [id number] IV ; Start at 11:00; Stop 08/27/16 at 11:01; Status DC Acetaminophen 325 mg 325 mg Q4H PRN RECTAL Pain 1-3 T > 101 > 101; Start at 11:00 Sodium Phosphate/ Sodium Chloride (Sodium Phosphate Inj/NS Inj) 155 ml @ 38.75 mls/ hr ONCE ONCE IV Last administered on 08/27/16 13:36; Start 08/27/16 at 13:00; Stop 08/27/16 at 16:59; Status DC Phytonadione (Mephyton) 5 mg ONCE ONCE PO Last administered on 08/27/16 12:45 ; Start 08/27/16 at 12:45; Stop 08/27/16 at 12:46; Status DC Protamine Sulfate (Protamine Sulfate Inj) 25 mg ONCE ONCE IV PUSH Last administered on 08/27/16 15:30; Start 08/27/16 at 15:15; Stop 08/27/16 at 15:18 ; Status DC Furosemide 20 mg 20 mg ONCE ONCE IV PUSH Last administered on 08/28/16 11:43 ; Start 08/28/16 at 10:00; Stop 08/28/16 at 10:01; Status DC Potassium Chloride 10 meq/ Sodium Chloride 1,005 ml @ 75 mls/hr [id number] IV Last administered on 08/29/16 03:38; Start 08/28/16 at 11:00; Stop 08/29/16 at 08:38; Status DC Potassium Chloride 100 ml @ 50 mls/hr Q2H PRN IV For Potassium 2.8 - 3.2 mEq/L ; Start 08/29/16 at 08:45; Stop 08/30/16 at 11:48; Status DC Potassium Chloride (KCl 20 Meq Premix Inj) 100 ml @ 50 mls/hr Q2H PRN IV For Potassium 2.8 - 3.2 mEq/L; Start 08/29/16 at 08:45; Stop 08/30/16 at 11:48; Status DC Potassium Chloride 40 meq 40 meq UNSCH PRN PO/TUBE For Potassium 3.3 - 3.5 mEq/ L Last administered on 2/22/17at 09:18; Start 08/29/16 at 08:45; Stop 08/30/16 at 11:48; Status DC Potassium Chloride 100 ml @ 25 mls/hr UNSCH PRN IV For Potassium 3.3 - 3.5 mEq /L; Start 08/29/16 at 08:45; Stop 08/30/16 at 11:48; Status DC Potassium Chloride 100 ml @ 50 mls/hr Q2H PRN IV For Potassium 3.3 - 3.5 mEq/L ; Start 08/29/16 at 08:45; Stop 08/30/16 at 11:49; Status DC Magnesium Sulfate/ Sodium Chloride (Magnesium Sulfate Inj/NS Inj) 100 ml @ 50 mls/hr UNSCH PRN IV For Magnesium 0.9 - 1.1 mg/dL; Start 08/29/16 at 08:45; Stop 08/30/16 at 11:49; Status DC Magnesium Oxide 800 mg 800 mg UNSCH PRN PO For Magnesium 1.2 - 1.6 mg/dL; Start 08/29/16 at 08:45; Stop 08/30/16 at 11:49; Status DC Magnesium Sulfate/ Sodium Chloride (Magnesium Sulfate Inj/NS Inj) 100 ml @ 50 mls/hr UNSCH PRN IV For Magnesium 1.2 - 1.6 mg/dL; Start 08/29/16 at 08:45; Stop 08/30/16 at 11:49; Status DC Potassium Phosphate 2000 mg 2,000 mg Q4H PRN PO For Phosphorus < 2.5 mg/dL; Start 08/29/16 at 08:45; Stop 08/30/16 at 11:50; Status DC Sodium Phosphate/ Sodium Chloride (Sodium Phosphate Inj/NS 250 ml Inj) 250 ml @ 42 mls/hr UNSCH PRN IV For Phosphorus < 2.5 mg/dL Last administered on t 15:57; Start 08/29/16 at 08:45; Stop 08/30/16 at 11:50; Status DC Potassium Chloride (KCl 40 Meq/30 ml Liq) 40 meq UNSCH PRN PO/TUBE SEE LABEL COMMENTS; Start 08/29/16 at 08:45; Stop 08/30/16 at 11:50; Status DC Potassium Phosphate 2000 mg 2,000 mg UNSCH PRN PO/TUBE SEE LABEL COMMENTS; Start 08/29/16 at 08:45; Stop 08/30/16 at 11:50; Status DC Potassium Phosphate/Sodium Chloride (Potassium Phosphate Inj/NS 250 ml Inj) 260 ml @ 42 mls/hr UNSCH PRN IV SEE LABEL COMMENTS; Start 08/29/16 at 08:45; Stop 08/30/16 at 11:50; Status DC Hydralazine HCl (Apresoline Inj) 10 mg Q6H PRN IV SBP> OR = 180, DBP> OR = 100 Last administered on 09/01/16 06:21; Start 08/29/16 at 08:45 Clonidine 0.1 mg 0.1 mg Q6H PRN PO SBP> OR = 180, DBP> OR = 100; Start at 08:45 Heparin Sodium/ Dextrose (Heparin-D5W Inj) 250 ml @ 0 mls/hr TITRATE IV Last administered on 09/07/16 04:44; Start 08/30/16 at 07:45 Atenolol (Tenormin) 12.5 mg DAILY PO Last administered on 09/05/16 09:21; Start 08/30/16 at 12:00; Stop 09/05/16 at 10:38; Status DC Atorvastatin Calcium (Lipitor) 40 mg HS PO Last administered on 09/07/16 19:33 ; Start 08/30/16 at 21:00 Isosorbide Mononitrate (Imdur) 60 mg DAILY PO Last administered on 09/08/16 09: 01; Start 08/31/16 at 09:00 Miscellaneous (Pill Splitter) 1 ea UNSCH PRN OTHER SEE LABEL COMMENTS Last administered on 09/05/16 12:40; Start 08/30/16 at 12:00 Cefuroxime Axetil 250 mg 250 mg Q12HR PO Last administered on 09/06/16 22:40; Start 08/31/16 at 09:00; Stop 09/07/16 at 08:59; Status DC Sodium Chloride (NS 1000 ml Inj) 1,000 ml @ 40 mls/hr Q24H IV Last administered on 09/05/16 09:25; Start 08/31/16 at 16:00; Status Hold Potassium Chloride (KCl) 30 meq ONCE ONCE PO Last administered on 09/03/16 11 :36; Start 09/03/16 at 11:15; Stop 09/03/16 at 11:16; Status DC Potassium Chloride (KCl) 30 meq ONCE ONCE PO Last administered on 09/03/16 13 :06; Start 09/03/16 at 14:00; Stop 09/03/16 at 14:01; Status DC Potassium Chloride (KCl) 40 meq ONCE ONCE PO Last administered on 09/03/16 17 :04; Start 09/03/16 at 18:00; Stop 09/03/16 at 18:01; Status DC Warfarin Sodium (Coumadin) 5 mg DAILY@1600 PO Last administered on 09/07/16 15: 17; Start 09/03/16 at 16:00 Patient Medication Teaching (Coumadin Booklet) 1 ONCE ONCE XX Last administered on 09/03/16 15:24; Start 09/03/16 at 16:00; Stop 09/03/16 at 16:01 ; Status DC Haloperidol Lactate (Haldol Inj) 2 mg ONCE ONCE IM Last administered on 23:45; Start 09/03/16 at 23:45; Stop 09/03/16 at 23:46; Status DC Atenolol (Tenormin) 25 mg DAILY PO Last administered on 09/08/16 09:01; Start 09/06/16 at 09:00 Atenolol (Tenormin) 12.5 mg ONCE ONCE PO Last administered on 09/05/16 12:39; Start 09/05/16 at 10:45; Stop 09/05/16 at 10:57; Status DC Potassium Bicarb/ Potassium Chloride (K-Lyte Cl Eff) 25 meq ONCE ONCE PO Last administered on 09/06/16 13:00; Start 09/06/16 at 13:00; Stop 09/06/16 at 13: 01; Status DC Potassium Bicarb/ Potassium Chloride (K-Lyte Cl Eff) 25 meq ONCE ONCE PO Last administered on 09/06/16 16:58; Start 09/06/16 at 16:00; Stop 09/06/16 at 16: 01; Status DC Potassium Bicarb/ Potassium Chloride (K-Lyte Cl Eff) 25 meq ONCE ONCE PO Last administered on 09/07/16 12:21; Start 09/07/16 at 10:30; Stop 09/07/16 at 10: 31; Status DC Potassium Bicarb/ Potassium Chloride (K-Lyte Cl Eff) 25 meq ONCE ONCE PO Last administered on 09/07/16t 15:18; Start 09/07/16 at 14:00; Stop 09/07/16 at 14: 01; Status DC A/P Assessment and Plan A/P Dementia disorder Behavioral disturbance NOS Continue Seroquel ,Sertraline Namenda , Aricept Psychiatry follow-up appreciated; mac act lifted- patient does not meet the criteria for admission to psych. History of hypertension History dyslipidemia History of aVR History of coronary disease status post CABG Elevated HDL echocardiogram with AV prosthesis Holding lisinopril 2.5 mg daily light of acute kidney injury. Holding aspirin 81 mg by mouth daily in light of hematoma Anti-hypertensives as needed. continue atenolol . continue Imdur with hold parameters. Also restarted Lipitor. INR is therapeutic; will dc heparin and continue coumadin; pharmacy will be consulted for coumadin dosing. Rectus sheath hematoma. Stable Patient to continue regular diet Colace/as needed Senokot for bowel regimen CT abdomen/posterior left rectus sheath hematoma which is stable on repeat CT. resumed coumadin and will monitor closely. Acute kidney injury-improved Avoid nephrotoxic drugs Lisinopril be held Accurate I/Os Monitor urine output Anemia Thrombocytopenia Coumadin use Received 2 units FFP and 25 mg protamine along with t PRBCs resumed coumadin will monitor H/H Gram-negative yahaira UTI. treated. Hypernatremia. Improved low grade fever- resolved. hypokalemia; replaced. PT evaluate and treat Prophylaxis - GI - Protonix - DVT - SCD/pharmacological prophylaxis/ coumadin. Discharge Planning case management consulted for dc planning to rehab. Mele Ashton MD Sep 08, 2016 10:17
[2016-09-08 12:00] VITALS: BP 115/58; PULSE 75; RESP 18; TEMP 97.5; O2SAT 97
[2016-09-08 16:00] VITALS: BP 138/69; PULSE 62; RESP 18; TEMP 98.3; O2SAT 97
[2016-09-08] MEDS: ATORVASTATIN 40 MG TAB PO SCH (19:55)
[2016-09-08] MEDS: DONEPEZIL HCL 5 MG TAB PO SCH (19:55)
[2016-09-08 20:00] VITALS: BP 156/75; PULSE 71; RESP 18; TEMP 98; O2SAT 94
[2016-09-09] VITALS (7 sets, daily range): BP systolic 131–162; BP diastolic 63–80; PULSE 65–84; RESP 16–20; TEMP 97.9–98.9; O2SAT 91–94
[2016-09-09] MEDS: CHLORHEXIDINE GLUCONATE 2 % 1 PACK (2 CLOTHS) TOP SCH (04:00)
[2016-09-09 09:04] LABS: APTT (PATIENT) 28.3 SEC (24.3-30.1); INTERNATIONAL NORMALIZED RATIO 1.1 RATIO; PROTHROMBIN TIME - PATIENT 12.5 SEC (9.8-11.6)
[2016-09-09] MEDS: SERTRALINE HCL 50 MG TAB PO SCH (10:04)
[2016-09-09] MEDS: MEMANTINE HCL 10 MG TAB PO SCH ×2 (10:04→20:11)
[2016-09-09] MEDS: DOCUSATE SODIUM 100 MG CAP PO SCH ×2 (10:04→20:11)
[2016-09-09] MEDS: QUEtiapine FUMARATE 25 MG TAB PO SCH ×2 (10:04→20:11)
[2016-09-09] MEDS: ATENOLOL 25 MG TAB PO SCH (10:04)
[2016-09-09] MEDS: ISOSORBIDE MONONITRATE 60 MG TAB PO SCH (10:04)
[2016-09-09] MEDS: ARTIFICIAL TEARS OPTH SOLN 15 ML BTL EACH EYE SCH ×3 (10:07→16:24)
[2016-09-09] MEDS: SODIUM CHLORIDE 0.9% FLUSH 5 ML FLUSH IV FLUSH SCH ×2 (10:07→21:00)
--- NOTE | 2016-09-09 10:49 | HHI.PR ---
Subjective Remarks sitting on the chair with no distress. d/w the RN and no acute issues over night. Objective Vitals Vital Signs Date Time Temp Pulse Resp B/P Pulse Ox O2 Delivery O2 Flow Rate FiO2 09/09/16 08:00 98.4 84 18 162/80 91 09/09/16 04:00 97.9 65 20 153/70 94 09/09/16 03:38 69 09/08/16 20:00 98.0 71 18 156/75 94 09/08/16 19:50 Room Air 09/08/16 16:00 98.3 62 18 138/69 97 09/08/16 12:00 97.5 75 18 115/58 97 09/08/16 11:29 95 Room Air I/O 09/08/16 09/08/16 09/08/16 09/09/16 09/09/16 09/09/16 07:00 15:00 23:00 07:00 15:00 23:00 Intake Total 240 ml 360 ml Output Total 100 ml Balance 240 ml 260 ml Intake Oral 240 ml 360 ml Output Urine Total 100 ml # Voids 2 2 2 1 # Bowel Movements 0 2 Result Diagram: 09/07/16 0550 09/08/16 0733 Imaging Last Impressions Chest X-Ray 08/29/16 0000 Signed Impressions: Service Date/Time: Monday, August 29, 2016 10:57 - CONCLUSION: Stable chest appearance with no acute disease Ruben Castro MD Abdomen/Pelvis CT 08/28/16 0000 Signed Impressions: Service Date/Time: Sunday, August 28, 2016 10:20 - CONCLUSION: 1. Rectus sheath hematoma the left appears unchanged. 2. Bilateral renal cysts. There is a small subcentimeter indeterminate lesion left mid kidney. Long-term followup recommended. 3. Diverticulosis of the colon without diverticulitis. Ray Vizcarra MD Head CT 08/27/16 0000 Signed Impressions: Service Date/Time: Saturday, August 27, 2016 11:42 - CONCLUSION: Atrophy. No acute intracranial process. Wang Marin MD Objective Remarks GENERAL: This is a well-nourished, well-developed patient, in no apparent distress. CARDIOVASCULAR: Regular rate and regular rhythm without murmurs, gallops, or rubs. RESPIRATORY: Clear to auscultation. Breath sounds equal bilaterally. No wheezes , rales, or rhonchi. GASTROINTESTINAL: Abdomen soft, non-tender, nondistended. Normal, active bowel sounds MUSCULOSKELETAL: Extremities without clubbing, cyanosis, or edema. NEURO: awake and alert- Procedures none Medications and IVs Current Medications Sodium Chloride (NS 1000 ml Inj) 1,000 ml @ 84 mls/hr [id number] IV Last administered on 08/27/16 18:59; Start 08/27/16 at 11:00; Stop 08/28/16 at 08:42 ; Status DC IV Flush (NS Flush) 2 ml UNSCH PRN IV FLUSH FLUSH AFTER USING IV ACCESS; Start 08/27/16 at 10:30 IV Flush (NS Flush) 2 ml BID IV FLUSH Last administered on 09/09/16 10:07; Start 08/27/16 at 21:00 Acetaminophen (Tylenol) 650 mg Q6H PRN PO PAIN 1-3, FEVER >101F; Start at 10:30 Acetaminophen/ Hydrocodone Bitart ([place] 5-325 Mg) 1 tab Q4H PRN PO PAIN SCALE 1 TO 5 Last administered on 08/28/16 23:01; Start 08/27/16 at 10:30 Morphine Sulfate (Morphine Inj) 2 mg Q2H PRN IV PAIN SCALE 6 TO 10 Last administered on 09/01/16 01:23; Start 08/27/16 at 10:30 Pantoprazole Sodium (Protonix Inj) 40 mg DAILY IV Last administered on 09:00; Start 08/28/16 at 09:00; Stop 08/29/16 at 08:38; Status DC Artificial Tears (Tears Naturale Opth Soln) 1 drop TID EACH EYE Last administered on 09/09/16 10:07; Start 08/27/16 at 13:00 Ondansetron HCl (Zofran Inj) 4 mg Q6H PRN IV NAUSEA OR VOMITING; Start at 10:30 Docusate Sodium (Colace) 100 mg BID PO Last administered on 09/09/16 10:04; Start 08/27/16 at 21:00 Sennosides (Senokot) 17.2 mg Q12H PRN PO CONSTIPATION; Start 08/27/16 at 10:30 Albuterol/ Ipratropium (Duoneb Neb) 1 ampule Q2HR NEB PRN INH WHEEZING; Start 08/27/16 at 10:30 Miscellaneous Information 1 [id number] XX ; Start 08/27/16 at 10:30 Chlorhexidine Gluconate (Chlorhexidine 2% Cloth) Taper DAILY@04 TOP Last administered on 08/31/16 21:35; Start 08/28/16 at 04:00; Stop 08/24/17 at 03:59 Chlorhexidine Gluconate (Chlorhexidine 2% Cloth) 3 pack UNSCH PRN TOP HYGIENIC CARE; Start 08/27/16 at 10:30 Dextrose (D50w (Vial) Inj) 25 ml UNSCH PRN IV PUSH HYPOGLYCEMIA-SEE COMMENTS; Start 08/27/16 at 10:30 Glucagon (Glucagon Inj) 1 mg UNSCH PRN OTHER HYPOGLYCEMIA-SEE COMMENTS; Start 08/27/16 at 10:30 Insulin Human Regular (NovoLIN R SUPPLEMENTAL SCALE) 1 ACHS SLIDING SCALE SQ ; Start 08/27/16 at 11:00; Stop 08/29/16 at 08:38; Status DC Sertraline HCl (Zoloft) 25 mg DAILY PO ; Start 08/28/16 at 09:00; Status UNV Quetiapine Fumarate (SEROquel) 25 mg BID PO Last administered on 09/09/16 10:04 ; Start 08/27/16 at 21:00 Donepezil HCl (Aricept) 10 mg DAILY PO ; Start 08/28/16 at 09:00; Stop 08/28/16 at 09:00; Status DC Donepezil HCl (Aricept) 10 mg HS PO Last administered on 09/08/16 19:55; Start 08/27/16 at 21:00 Memantine (Namenda) 10 mg BID PO Last administered on 09/09/16 10:04; Start at 21:00 Quetiapine Fumarate (SEROquel) 25 mg DAILY PO ; Start 08/28/16 at 09:00; Stop at 09:00; Status DC Sertraline HCl 25 mg 25 mg DAILY PO Last administered on 09/09/16 10:04; Start 08/28/16 at 09:00 Sodium Chloride (NS 1000 ml Inj) 1,000 ml @ 70 mls/hr [id number] IV ; Start at 11:00; Stop 08/27/16 at 11:01; Status DC Acetaminophen 325 mg 325 mg Q4H PRN RECTAL Pain 1-3 T > 101 > 101; Start at 11:00 Sodium Phosphate/ Sodium Chloride (Sodium Phosphate Inj/NS Inj) 155 ml @ 38.75 mls/ hr ONCE ONCE IV Last administered on 08/27/16 13:36; Start 08/27/16 at 13:00; Stop 08/27/16 at 16:59; Status DC Phytonadione (Mephyton) 5 mg ONCE ONCE PO Last administered on 08/27/16 12:45 ; Start 08/27/16 at 12:45; Stop 08/27/16 at 12:46; Status DC Protamine Sulfate (Protamine Sulfate Inj) 25 mg ONCE ONCE IV PUSH Last administered on 08/27/16 15:30; Start 08/27/16 at 15:15; Stop 08/27/16 at 15:18 ; Status DC Furosemide 20 mg 20 mg ONCE ONCE IV PUSH Last administered on 08/28/16 11:43 ; Start 08/28/16 at 10:00; Stop 08/28/16 at 10:01; Status DC Potassium Chloride 10 meq/ Sodium Chloride 1,005 ml @ 75 mls/hr [id number] IV Last administered on 08/29/16 03:38; Start 08/28/16 at 11:00; Stop 08/29/16 at 08:38; Status DC Potassium Chloride 100 ml @ 50 mls/hr Q2H PRN IV For Potassium 2.8 - 3.2 mEq/L ; Start 08/29/16 at 08:45; Stop 08/30/16 at 11:48; Status DC Potassium Chloride (KCl 20 Meq Premix Inj) 100 ml @ 50 mls/hr Q2H PRN IV For Potassium 2.8 - 3.2 mEq/L; Start 08/29/16 at 08:45; Stop 08/30/16 at 11:48; Status DC Potassium Chloride 40 meq 40 meq UNSCH PRN PO/TUBE For Potassium 3.3 - 3.5 mEq/ L Last administered on 08/29/16 09:18; Start 08/29/16 at 08:45; Stop 08/30/16 at 11:48; Status DC Potassium Chloride 100 ml @ 25 mls/hr UNSCH PRN IV For Potassium 3.3 - 3.5 mEq /L; Start 08/29/16 at 08:45; Stop 08/30/16 at 11:48; Status DC Potassium Chloride 100 ml @ 50 mls/hr Q2H PRN IV For Potassium 3.3 - 3.5 mEq/L ; Start 08/29/16 at 08:45; Stop 08/30/16 at 11:49; Status DC Magnesium Sulfate/ Sodium Chloride (Magnesium Sulfate Inj/NS Inj) 100 ml @ 50 mls/hr UNSCH PRN IV For Magnesium 0.9 - 1.1 mg/dL; Start 08/29/16 at 08:45; Stop 08/30/16 at 11:49; Status DC Magnesium Oxide 800 mg 800 mg UNSCH PRN PO For Magnesium 1.2 - 1.6 mg/dL; Start 08/29/16 at 08:45; Stop 08/30/16 at 11:49; Status DC Magnesium Sulfate/ Sodium Chloride (Magnesium Sulfate Inj/NS Inj) 100 ml @ 50 mls/hr UNSCH PRN IV For Magnesium 1.2 - 1.6 mg/dL; Start 08/29/16 at 08:45; Stop 08/30/16 at 11:49; Status DC Potassium Phosphate 2000 mg 2,000 mg Q4H PRN PO For Phosphorus < 2.5 mg/dL; Start 08/29/16 at 08:45; Stop 08/30/16 at 11:50; Status DC Sodium Phosphate/ Sodium Chloride (Sodium Phosphate Inj/NS 250 ml Inj) 250 ml @ 42 mls/hr UNSCH PRN IV For Phosphorus < 2.5 mg/dL Last administered on t 15:57; Start 08/29/16 at 08:45; Stop 08/30/16 at 11:50; Status DC Potassium Chloride (KCl 40 Meq/30 ml Liq) 40 meq UNSCH PRN PO/TUBE SEE LABEL COMMENTS; Start 08/29/16 at 08:45; Stop 08/30/16 at 11:50; Status DC Potassium Phosphate 2000 mg 2,000 mg UNSCH PRN PO/TUBE SEE LABEL COMMENTS; Start 08/29/16 at 08:45; Stop 08/30/16 at 11:50; Status DC Potassium Phosphate/Sodium Chloride (Potassium Phosphate Inj/NS 250 ml Inj) 260 ml @ 42 mls/hr UNSCH PRN IV SEE LABEL COMMENTS; Start 08/29/16 at 08:45; Stop 08/30/16 at 11:50; Status DC Hydralazine HCl (Apresoline Inj) 10 mg Q6H PRN IV SBP> OR = 180, DBP> OR = 100 Last administered on 09/01/16 06:21; Start 08/29/16 at 08:45 Clonidine 0.1 mg 0.1 mg Q6H PRN PO SBP> OR = 180, DBP> OR = 100; Start at 08:45 Heparin Sodium/ Dextrose (Heparin-D5W Inj) 250 ml @ 0 mls/hr TITRATE IV Last administered on 09/07/16 04:44; Start 08/30/16 at 07:45; Stop 09/08/16 at 10:08; Status DC Atenolol (Tenormin) 12.5 mg DAILY PO Last administered on 09/05/16 09:21; Start 08/30/16 at 12:00; Stop 09/05/16 at 10:38; Status DC Atorvastatin Calcium (Lipitor) 40 mg HS PO Last administered on 09/08/16 19:55 ; Start 08/30/16 at 21:00 Isosorbide Mononitrate (Imdur) 60 mg DAILY PO Last administered on 09/09/16 10: 04; Start 08/31/16 at 09:00 Miscellaneous (Pill Splitter) 1 ea UNSCH PRN OTHER SEE LABEL COMMENTS Last administered on 09/05/16 12:40; Start 08/30/16 at 12:00 Cefuroxime Axetil 250 mg 250 mg Q12HR PO Last administered on 09/06/16 22:40; Start 08/31/16 at 09:00; Stop 09/07/16 at 08:59; Status DC Sodium Chloride (NS 1000 ml Inj) 1,000 ml @ 40 mls/hr Q24H IV Last administered on 09/05/16 09:25; Start 08/31/16 at 16:00; Status Hold Potassium Chloride (KCl) 30 meq ONCE ONCE PO Last administered on 09/03/16 11 :36; Start 09/03/16 at 11:15; Stop 09/03/16 at 11:16; Status DC Potassium Chloride (KCl) 30 meq ONCE ONCE PO Last administered on 09/03/16 13 :06; Start 09/03/16 at 14:00; Stop 09/03/16 at 14:01; Status DC Potassium Chloride (KCl) 40 meq ONCE ONCE PO Last administered on 09/03/16 17 :04; Start 09/03/16 at 18:00; Stop 09/03/16 at 18:01; Status DC Warfarin Sodium (Coumadin) 5 mg DAILY@1600 PO Last administered on 09/07/16 15: 17; Start 09/03/16 at 16:00; Stop 09/09/16 at 10:31; Status DC Patient Medication Teaching (Coumadin Booklet) 1 ONCE ONCE XX Last administered on 09/03/16 15:24; Start 09/03/16 at 16:00; Stop 09/03/16 at 16:01 ; Status DC Haloperidol Lactate (Haldol Inj) 2 mg ONCE ONCE IM Last administered on 23:45; Start 09/03/16 at 23:45; Stop 09/03/16 at 23:46; Status DC Atenolol (Tenormin) 25 mg DAILY PO Last administered on 09/09/16 10:04; Start 09/06/16 at 09:00 Atenolol (Tenormin) 12.5 mg ONCE ONCE PO Last administered on 09/05/16 12:39; Start 09/05/16 at 10:45; Stop 09/05/16 at 10:57; Status DC Potassium Bicarb/ Potassium Chloride (K-Lyte Cl Eff) 25 meq ONCE ONCE PO Last administered on 09/06/16 13:00; Start 09/06/16 at 13:00; Stop 09/06/16 at 13: 01; Status DC Potassium Bicarb/ Potassium Chloride (K-Lyte Cl Eff) 25 meq ONCE ONCE PO Last administered on 09/06/16 16:58; Start 09/06/16 at 16:00; Stop 09/06/16 at 16: 01; Status DC Potassium Bicarb/ Potassium Chloride (K-Lyte Cl Eff) 25 meq ONCE ONCE PO Last administered on 3/3/17at 12:21; Start 09/07/16 at 10:30; Stop 09/07/16 at 10: 31; Status DC Potassium Bicarb/ Potassium Chloride 25 meq 25 meq ONCE ONCE PO Last administered on 09/07/16t 15:18; Start 09/07/16 at 14:00; Stop 09/07/16 at 14:01; Status DC Pharmacy Profile Note (Coumadin Consult Pharmacy) 0 ml @ 0 mls/hr UNSCH OTHER ; Start 09/08/16 at 10:30 Warfarin Sodium (Coumadin) 4 mg DAILY@1600 PO ; Start 09/09/16 at 16:00 A/P Assessment and Plan A/P Dementia disorder Behavioral disturbance NOS Continue Seroquel ,Sertraline Namenda , Aricept Psychiatry follow-up appreciated; mac act lifted- patient does not meet the criteria for admission to psych. History of hypertension History dyslipidemia History of aVR History of coronary disease status post CABG Elevated HDL echocardiogram with AV prosthesis Holding lisinopril in light of acute kidney injury. Holding aspirin 81 mg by mouth daily in light of hematoma Anti-hypertensives as needed. continue atenolol . continue Imdur with hold parameters. Also restarted Lipitor. INR is subtherapeutic today- lab error??- INR dropped to 1.1 today from 2.8 yesterday- repeat the INR today; consulted pharmacy for coumadin dosing. Rectus sheath hematoma. Stable Patient to continue regular diet Colace/as needed Senokot for bowel regimen CT abdomen/posterior left rectus sheath hematoma which is stable on repeat CT. resumed coumadin and will monitor closely. Acute kidney injury-improved Avoid nephrotoxic drugs Lisinopril be held Accurate I/Os Monitor urine output Anemia Thrombocytopenia Coumadin use Received 2 units FFP and protamine along with PRBCs resumed coumadin will monitor H/H periodically. Gram-negative yahaira UTI. treated. Hypernatremia. Improved low grade fever- resolved. hypokalemia; replaced. PT evaluate and treat Prophylaxis - GI - Protonix - DVT - SCD/pharmacological prophylaxis/ coumadin. Discharge Planning case management consulted for dc planning to rehab. Mele Ashton MD Sep 09, 2016 10:49
[2016-09-09 11:22] LABS: PROTHROMBIN TIME - PATIENT 35.3 SEC (9.8-11.6)
[2016-09-09] MEDS ORDERED: WARFARIN SOD 4 MG TAB PO SCH (16:00)
[2016-09-09] MEDS: ATORVASTATIN 40 MG TAB PO SCH (20:11)
[2016-09-09] MEDS: DONEPEZIL HCL 5 MG TAB PO SCH (20:11)
[2016-09-10] VITALS (9 sets, daily range): BP systolic 109–148; BP diastolic 63–88; PULSE 62–83; RESP 16–20; TEMP 97.2–98.3; O2SAT 91–98
[2016-09-10] MEDS: CHLORHEXIDINE GLUCONATE 2 % 1 PACK (2 CLOTHS) TOP SCH (04:00)
[2016-09-10 08:10] LABS: APTT (PATIENT) 36.1 SEC (24.3-30.1); INTERNATIONAL NORMALIZED RATIO 3.2 RATIO; PROTHROMBIN TIME - PATIENT 37.1 SEC (9.8-11.6)
[2016-09-10] MEDS: ATENOLOL 25 MG TAB PO SCH (08:44)
[2016-09-10] MEDS: DOCUSATE SODIUM 100 MG CAP PO SCH ×2 (08:44→20:45)
[2016-09-10] MEDS: ISOSORBIDE MONONITRATE 60 MG TAB PO SCH (08:44)
[2016-09-10] MEDS: QUEtiapine FUMARATE 25 MG TAB PO SCH ×2 (08:45→20:45)
[2016-09-10] MEDS: SODIUM CHLORIDE 0.9% FLUSH 5 ML FLUSH IV FLUSH SCH ×2 (08:45→20:46)
[2016-09-10] MEDS: SERTRALINE HCL 50 MG TAB PO SCH (08:45)
[2016-09-10] MEDS: MEMANTINE HCL 10 MG TAB PO SCH ×2 (08:45→20:45)
[2016-09-10] MEDS: ARTIFICIAL TEARS OPTH SOLN 15 ML BTL EACH EYE SCH ×3 (08:47→18:00)
--- NOTE | 2016-09-10 12:30 | HHI.PR ---
Subjective Remarks in no acute distress. looks comfortable. Objective Vitals Vital Signs Date Time Temp Pulse Resp B/P Pulse Ox O2 Delivery O2 Flow Rate FiO2 09/10/16 08:00 98.3 71 20 140/74 92 09/10/16 04:00 97.6 67 20 148/88 98 09/10/16 03:37 83 09/10/16 00:46 98.0 68 16 109/63 93 09/09/16 21:39 98.3 78 16 142/63 93 09/09/16 20:00 Room Air 09/09/16 16:00 98.2 66 18 131/71 92 I/O 09/09/16 09/09/16 09/09/16 09/10/16 09/10/16 09/10/16 07:00 15:00 23:00 07:00 15:00 23:00 Intake Total 720 ml Balance 720 ml Intake Oral 720 ml # Voids 1 2 1 # Bowel Movements 1 0 Result Diagram: 09/07/16 0550 09/08/16 0733 Imaging Last Impressions Chest X-Ray 08/29/16 0000 Signed Impressions: Service Date/Time: Monday, August 29, 2016 10:57 - CONCLUSION: Stable chest appearance with no acute disease Ruben Castro MD Abdomen/Pelvis CT 08/28/16 0000 Signed Impressions: Service Date/Time: Sunday, August 28, 2016 10:20 - CONCLUSION: 1. Rectus sheath hematoma the left appears unchanged. 2. Bilateral renal cysts. There is a small subcentimeter indeterminate lesion left mid kidney. Long-term followup recommended. 3. Diverticulosis of the colon without diverticulitis. Ray Vizcarra MD Head CT 08/27/16 0000 Signed Impressions: Service Date/Time: Saturday, August 27, 2016 11:42 - CONCLUSION: Atrophy. No acute intracranial process. Wang Marin MD Objective Remarks GENERAL: This is a well-nourished, well-developed patient, in no apparent distress. CARDIOVASCULAR: Regular rate and regular rhythm without murmurs, gallops, or rubs. RESPIRATORY: Clear to auscultation. Breath sounds equal bilaterally. No wheezes , rales, or rhonchi. GASTROINTESTINAL: Abdomen soft, non-tender, nondistended. Normal, active bowel sounds MUSCULOSKELETAL: Extremities without clubbing, cyanosis, or edema. NEURO: awake and alert- Procedures none Medications and IVs Current Medications Sodium Chloride (NS 1000 ml Inj) 1,000 ml @ 84 mls/hr [id number] IV Last administered on 08/27/16 18:59; Start 08/27/16 at 11:00; Stop 08/28/16 at 08:42 ; Status DC IV Flush (NS Flush) 2 ml UNSCH PRN IV FLUSH FLUSH AFTER USING IV ACCESS; Start 08/27/16 at 10:30 IV Flush (NS Flush) 2 ml BID IV FLUSH Last administered on 09/10/16 08:45; Start 08/27/16 at 21:00 Acetaminophen (Tylenol) 650 mg Q6H PRN PO PAIN 1-3, FEVER >101F; Start at 10:30 Acetaminophen/ Hydrocodone Bitart ([place] 5-325 Mg) 1 tab Q4H PRN PO PAIN SCALE 1 TO 5 Last administered on 08/28/16 23:01; Start 08/27/16 at 10:30 Morphine Sulfate (Morphine Inj) 2 mg Q2H PRN IV PAIN SCALE 6 TO 10 Last administered on 09/01/16 01:23; Start 08/27/16 at 10:30 Pantoprazole Sodium (Protonix Inj) 40 mg DAILY IV Last administered on 09:00; Start 08/28/16 at 09:00; Stop 08/29/16 at 08:38; Status DC Artificial Tears (Tears Naturale Opth Soln) 1 drop TID EACH EYE Last administered on 09/10/16 08:47; Start 08/27/16 at 13:00 Ondansetron HCl (Zofran Inj) 4 mg Q6H PRN IV NAUSEA OR VOMITING; Start at 10:30 Docusate Sodium (Colace) 100 mg BID PO Last administered on 09/10/16 08:44; Start 08/27/16 at 21:00 Sennosides (Senokot) 17.2 mg Q12H PRN PO CONSTIPATION; Start 08/27/16 at 10:30 Albuterol/ Ipratropium (Duoneb Neb) 1 ampule Q2HR NEB PRN INH WHEEZING; Start 08/27/16 at 10:30 Miscellaneous Information 1 Q361D XX ; Start 08/27/16 at 10:30 Chlorhexidine Gluconate (Chlorhexidine 2% Cloth) Taper DAILY@04 TOP Last administered on 08/31/16 21:35; Start 08/28/16 at 04:00; Stop 08/24/17 at 03:59 Chlorhexidine Gluconate (Chlorhexidine 2% Cloth) 3 pack UNSCH PRN TOP HYGIENIC CARE; Start 08/27/16 at 10:30 Dextrose (D50w (Vial) Inj) 25 ml UNSCH PRN IV PUSH HYPOGLYCEMIA-SEE COMMENTS; Start 08/27/16 at 10:30 Glucagon (Glucagon Inj) 1 mg UNSCH PRN OTHER HYPOGLYCEMIA-SEE COMMENTS; Start 08/27/16 at 10:30 Insulin Human Regular (NovoLIN R SUPPLEMENTAL SCALE) 1 ACHS SLIDING SCALE SQ ; Start 08/27/16 at 11:00; Stop 08/29/16 at 08:38; Status DC Sertraline HCl (Zoloft) 25 mg DAILY PO ; Start 08/28/16 at 09:00; Status UNV Quetiapine Fumarate (SEROquel) 25 mg BID PO Last administered on 09/10/16 08:45 ; Start 08/27/16 at 21:00 Donepezil HCl (Aricept) 10 mg DAILY PO ; Start 08/28/16 at 09:00; Stop 08/28/16 at 09:00; Status DC Donepezil HCl (Aricept) 10 mg HS PO Last administered on 09/09/16 20:11; Start 08/27/16 at 21:00 Memantine (Namenda) 10 mg BID PO Last administered on 09/10/16 08:45; Start at 21:00 Quetiapine Fumarate (SEROquel) 25 mg DAILY PO ; Start 08/28/16 at 09:00; Stop at 09:00; Status DC Sertraline HCl 25 mg 25 mg DAILY PO Last administered on 09/10/16 08:45; Start 08/28/16 at 09:00 Sodium Chloride (NS 1000 ml Inj) 1,000 ml @ 70 mls/hr [id number] IV ; Start at 11:00; Stop 08/27/16 at 11:01; Status DC Acetaminophen 325 mg 325 mg Q4H PRN RECTAL Pain 1-3 T > 101 > 101; Start at 11:00 Sodium Phosphate/ Sodium Chloride (Sodium Phosphate Inj/NS Inj) 155 ml @ 38.75 mls/ hr ONCE ONCE IV Last administered on 08/27/16 13:36; Start 08/27/16 at 13:00; Stop 08/27/16 at 16:59; Status DC Phytonadione (Mephyton) 5 mg ONCE ONCE PO Last administered on 08/27/16 12:45 ; Start 08/27/16 at 12:45; Stop 08/27/16 at 12:46; Status DC Protamine Sulfate (Protamine Sulfate Inj) 25 mg ONCE ONCE IV PUSH Last administered on 08/27/16 15:30; Start 08/27/16 at 15:15; Stop 08/27/16 at 15:18 ; Status DC Furosemide 20 mg 20 mg ONCE ONCE IV PUSH Last administered on 08/28/16 11:43 ; Start 08/28/16 at 10:00; Stop 08/28/16 at 10:01; Status DC Potassium Chloride 10 meq/ Sodium Chloride 1,005 ml @ 75 mls/hr [id number] IV Last administered on 08/29/16 03:38; Start 08/28/16 at 11:00; Stop 08/29/16 at 08:38; Status DC Potassium Chloride 100 ml @ 50 mls/hr Q2H PRN IV For Potassium 2.8 - 3.2 mEq/L ; Start 08/29/16 at 08:45; Stop 08/30/16 at 11:48; Status DC Potassium Chloride (KCl 20 Meq Premix Inj) 100 ml @ 50 mls/hr Q2H PRN IV For Potassium 2.8 - 3.2 mEq/L; Start 08/29/16 at 08:45; Stop 08/30/16 at 11:48; Status DC Potassium Chloride 40 meq 40 meq UNSCH PRN PO/TUBE For Potassium 3.3 - 3.5 mEq/ L Last administered on 08/29/16 09:18; Start 08/29/16 at 08:45; Stop 08/30/16 at 11:48; Status DC Potassium Chloride 100 ml @ 25 mls/hr UNSCH PRN IV For Potassium 3.3 - 3.5 mEq /L; Start 08/29/16 at 08:45; Stop 08/30/16 at 11:48; Status DC Potassium Chloride 100 ml @ 50 mls/hr Q2H PRN IV For Potassium 3.3 - 3.5 mEq/L ; Start 08/29/16 at 08:45; Stop 08/30/16 at 11:49; Status DC Magnesium Sulfate/ Sodium Chloride (Magnesium Sulfate Inj/NS Inj) 100 ml @ 50 mls/hr UNSCH PRN IV For Magnesium 0.9 - 1.1 mg/dL; Start 08/29/16 at 08:45; Stop 08/30/16 at 11:49; Status DC Magnesium Oxide 800 mg 800 mg UNSCH PRN PO For Magnesium 1.2 - 1.6 mg/dL; Start 08/29/16 at 08:45; Stop 08/30/16 at 11:49; Status DC Magnesium Sulfate/ Sodium Chloride (Magnesium Sulfate Inj/NS Inj) 100 ml @ 50 mls/hr UNSCH PRN IV For Magnesium 1.2 - 1.6 mg/dL; Start 08/29/16 at 08:45; Stop 08/30/16 at 11:49; Status DC Potassium Phosphate 2000 mg 2,000 mg Q4H PRN PO For Phosphorus < 2.5 mg/dL; Start 08/29/16 at 08:45; Stop 08/30/16 at 11:50; Status DC Sodium Phosphate/ Sodium Chloride (Sodium Phosphate Inj/NS 250 ml Inj) 250 ml @ 42 mls/hr UNSCH PRN IV For Phosphorus < 2.5 mg/dL Last administered on t 15:57; Start 08/29/16 at 08:45; Stop 08/30/16 at 11:50; Status DC Potassium Chloride (KCl 40 Meq/30 ml Liq) 40 meq UNSCH PRN PO/TUBE SEE LABEL COMMENTS; Start 08/29/16 at 08:45; Stop 08/30/16 at 11:50; Status DC Potassium Phosphate 2000 mg 2,000 mg UNSCH PRN PO/TUBE SEE LABEL COMMENTS; Start 08/29/16 at 08:45; Stop 08/30/16 at 11:50; Status DC Potassium Phosphate/Sodium Chloride (Potassium Phosphate Inj/NS 250 ml Inj) 260 ml @ 42 mls/hr UNSCH PRN IV SEE LABEL COMMENTS; Start 08/29/16 at 08:45; Stop 08/30/16 at 11:50; Status DC Hydralazine HCl (Apresoline Inj) 10 mg Q6H PRN IV SBP> OR = 180, DBP> OR = 100 Last administered on 09/01/16 06:21; Start 08/29/16 at 08:45 Clonidine 0.1 mg 0.1 mg Q6H PRN PO SBP> OR = 180, DBP> OR = 100; Start at 08:45 Heparin Sodium/ Dextrose (Heparin-D5W Inj) 250 ml @ 0 mls/hr TITRATE IV Last administered on 09/07/16 04:44; Start 08/30/16 at 07:45; Stop 09/08/16 at 10:08; Status DC Atenolol (Tenormin) 12.5 mg DAILY PO Last administered on 09/05/16 09:21; Start 08/30/16 at 12:00; Stop 09/05/16 at 10:38; Status DC Atorvastatin Calcium (Lipitor) 40 mg HS PO Last administered on 09/09/16 20:11 ; Start 08/30/16 at 21:00 Isosorbide Mononitrate (Imdur) 60 mg DAILY PO Last administered on 09/10/16 08: 44; Start 08/31/16 at 09:00 Miscellaneous (Pill Splitter) 1 ea UNSCH PRN OTHER SEE LABEL COMMENTS Last administered on 09/05/16 12:40; Start 08/30/16 at 12:00 Cefuroxime Axetil 250 mg 250 mg Q12HR PO Last administered on 09/06/16 22:40; Start 08/31/16 at 09:00; Stop 09/07/16 at 08:59; Status DC Sodium Chloride (NS 1000 ml Inj) 1,000 ml @ 40 mls/hr Q24H IV Last administered on 09/05/16 09:25; Start 08/31/16 at 16:00; Status Hold Potassium Chloride (KCl) 30 meq ONCE ONCE PO Last administered on 09/03/16 11 :36; Start 09/03/16 at 11:15; Stop 09/03/16 at 11:16; Status DC Potassium Chloride (KCl) 30 meq ONCE ONCE PO Last administered on 09/03/16 13 :06; Start 09/03/16 at 14:00; Stop 09/03/16 at 14:01; Status DC Potassium Chloride (KCl) 40 meq ONCE ONCE PO Last administered on 09/03/16 17 :04; Start 09/03/16 at 18:00; Stop 09/03/16 at 18:01; Status DC Warfarin Sodium (Coumadin) 5 mg DAILY@1600 PO Last administered on 09/07/16 15: 17; Start 09/03/16 at 16:00; Stop 09/09/16 at 10:31; Status DC Patient Medication Teaching (Coumadin Booklet) 1 ONCE ONCE XX Last administered on 09/03/16 15:24; Start 09/03/16 at 16:00; Stop 09/03/16 at 16:01 ; Status DC Haloperidol Lactate (Haldol Inj) 2 mg ONCE ONCE IM Last administered on 23:45; Start 09/03/16 at 23:45; Stop 09/03/16 at 23:46; Status DC Atenolol (Tenormin) 25 mg DAILY PO Last administered on 09/10/16 08:44; Start 09/06/16 at 09:00 Atenolol (Tenormin) 12.5 mg ONCE ONCE PO Last administered on 09/05/16 12:39; Start 09/05/16 at 10:45; Stop 09/05/16 at 10:57; Status DC Potassium Bicarb/ Potassium Chloride (K-Lyte Cl Eff) 25 meq ONCE ONCE PO Last administered on 09/06/16 13:00; Start 09/06/16 at 13:00; Stop 09/06/16 at 13: 01; Status DC Potassium Bicarb/ Potassium Chloride (K-Lyte Cl Eff) 25 meq ONCE ONCE PO Last administered on 09/06/16 16:58; Start 09/06/16 at 16:00; Stop 09/06/16 at 16: 01; Status DC Potassium Bicarb/ Potassium Chloride (K-Lyte Cl Eff) 25 meq ONCE ONCE PO Last administered on 09/07/16 12:21; Start 09/07/16 at 10:30; Stop 09/07/16 at 10: 31; Status DC Potassium Bicarb/ Potassium Chloride 25 meq 25 meq ONCE ONCE PO Last administered on 09/07/16 15:18; Start 09/07/16 at 14:00; Stop 09/07/16 at 14:01; Status DC Pharmacy Profile Note (Coumadin Consult Pharmacy) 0 ml @ 0 mls/hr UNSCH OTHER ; Start 09/08/16 at 10:30 Warfarin Sodium (Coumadin) 4 mg DAILY@1600 PO Last administered on 09/09/16 16: 24; Start 09/09/16 at 16:00; Status Hold A/P Assessment and Plan A/P Dementia disorder Behavioral disturbance NOS Continue Seroquel ,Sertraline Namenda , Aricept Psychiatry follow-up appreciated; mac act lifted- patient does not meet the criteria for admission to psych. History of hypertension History dyslipidemia History of aVR History of coronary disease status post CABG Elevated HDL echocardiogram with AV prosthesis Holding lisinopril in light of acute kidney injury. Holding aspirin 81 mg by mouth daily in light of hematoma Anti-hypertensives as needed. continue atenolol . continue Imdur with hold parameters. Also restarted Lipitor. INR supratherpaeutic today- hold coumadin today- consulted pharmacy for coumadin dosing. Rectus sheath hematoma. Stable CTabdomen/posterior left rectus sheath hematoma which is stable on repeat CT. resumed coumadin and will monitor closely. evaluated by hematology. Acute kidney injury-improved Avoid nephrotoxic drugs Lisinopril be held Accurate I/Os Monitor urine output Anemia Thrombocytopenia Coumadin use Received FFP and protamine along with PRBCs resumed coumadin will monitor H/H periodically. Gram-negative yahaira UTI. treated. Hypernatremia. Improved low grade fever- resolved. hypokalemia; replaced. PT evaluate and treat Prophylaxis - GI - Protonix - DVT - SCD/ coumadin. Discharge Planning case management consulted for dc planning to rehab. d/w the case management. Mele Ashton MD Sep 10, 2016 12:30 Mele Ashton MD Sep 10, 2016 12:30
[2016-09-10] MEDS: ATORVASTATIN 40 MG TAB PO SCH (20:45)
[2016-09-10] MEDS: DONEPEZIL HCL 5 MG TAB PO SCH (20:45)
[2016-09-11] MEDS: CHLORHEXIDINE GLUCONATE 2 % 1 PACK (2 CLOTHS) TOP SCH (04:00)
[2016-09-11] MEDS: DOCUSATE SODIUM 100 MG CAP PO SCH ×2 (07:34→20:38)
[2016-09-11] MEDS: ISOSORBIDE MONONITRATE 60 MG TAB PO SCH (07:35)
[2016-09-11] MEDS: MEMANTINE HCL 10 MG TAB PO SCH ×2 (07:35→20:38)
[2016-09-11] MEDS: SERTRALINE HCL 50 MG TAB PO SCH (07:35)
[2016-09-11] MEDS: ATENOLOL 25 MG TAB PO SCH (07:35)
[2016-09-11] MEDS: QUEtiapine FUMARATE 25 MG TAB PO SCH ×2 (07:35→20:38)
[2016-09-11] MEDS: SODIUM CHLORIDE 0.9% FLUSH 5 ML FLUSH IV FLUSH SCH ×2 (07:38→20:38)
[2016-09-11] MEDS: ARTIFICIAL TEARS OPTH SOLN 15 ML BTL EACH EYE SCH ×3 (07:38→17:03)
[2016-09-11 08:00] VITALS: BP 153/77; PULSE 74; RESP 17; TEMP 97.5; O2SAT 92
[2016-09-11 08:03] LABS: APTT (PATIENT) 36.6 SEC (24.3-30.1); INTERNATIONAL NORMALIZED RATIO 2.6 RATIO; PROTHROMBIN TIME - PATIENT 29.6 SEC (9.8-11.6)
--- NOTE | 2016-09-11 10:36 | HHI.PR ---
Subjective Remarks Patient was transferred from [facility] to [place] last night. Patient initially presented to ED on 08/20 with dementia with behavioral disturbance. She was admitted to psychiatry, but on 08/27 had acutely altered mental status and [facility] Critical care evaluated the patient. The patient's hemoglobin was 6.9 on 08/28 and she was found to have a left lower abdominal hematoma. The patient had been receiving Lovenox twice daily as a bridge due to subtherapeutic INR with history of aortic valve replacement. Hematology evaluated the patient. Patient was restarted on Coumadin. The patient is Hungarian speaking. I as well as Rima RN spoke in Hungarian to the patient. The patient admits to feeling a little tired. She denies being hungry although RN states she ate well this morning. She denies having pain anywhere. States she is ambulatory. Objective Vitals Vital Signs Date Time Temp Pulse Resp B/P Pulse Ox O2 Delivery O2 Flow Rate FiO2 09/11/16 08:00 97.5 74 17 153/77 92 09/11/16 07:10 97 Room Air 09/10/16 20:00 97.8 62 16 122/79 98 09/10/16 20:00 98 Room Air 09/10/16 17:15 97.2 69 20 141/69 95 09/10/16 16:26 62 09/10/16 13:26 63 09/10/16 12:00 97.4 67 20 112/65 91 I/O 09/10/16 09/10/16 09/10/16 09/11/16 09/11/16 09/11/16 07:00 15:00 23:00 07:00 15:00 23:00 Intake Total 120 ml 80 ml Balance 120 ml 80 ml Intake Oral 120 ml 80 ml # Voids 1 0 0 # Bowel Movements 0 0 0 Result Diagram: 09/07/16 0550 09/08/16 0733 Objective Remarks GENERAL: Well-developed, well-nourished patient in no apparent distress. CARDIOVASCULAR: Regular rate and rhythm. RESPIRATORY: No accessory muscle use. Clear to auscultation. Breath sounds equal bilaterally. GASTROINTESTINAL: Abdomen soft, non-tender, nondistended. NEUROLOGICAL: Awake and alert. Motor grossly within normal limits. Normal speech. Procedures none Urinary Catheter: No Vascular Central Line Catheter: No A/P Problem List: (1) Dementia with behavioral disturbance ICD Code: F03.91 Status: Chronic (2) HTN (hypertension) ICD Code: I10 Status: Chronic (3) CAD (coronary artery disease) ICD Code: I25.10 Status: Chronic (4) Rectus sheath hematoma ICD Code: S30.1XXA Status: Acute (5) ALIYAH (acute kidney injury) ICD Code: N17.9 Status: Acute Assessment and Plan Dementia with behavioral disturbance -Continue Seroquel ,Sertraline Namenda , Aricept -Psychiatry follow-up appreciated; mac act lifted- patient does not meet the criteria for admission to psych. History of hypertension/dyslipidemia/aVR/CAD -Echocardiogram with AV prosthesis -Continue atenolol and Imdur with hold parameters. Clonidine and hydralazine as needed. -Lipitor restarted. -Continue Coumadin. INR goal 2.5-3.0. Pharmacy dosing. Rectus sheath hematoma: Stable -CTabdomen/posterior left rectus sheath hematoma which is stable on repeat CT. -Evaluated by hematology. -Resumed coumadin and will monitor closely. Acute kidney injury: Resolved. -Avoid nephrotoxic drugs -Accurate I/Os -Monitor urine output Anemia/Thrombocytopenia/Coumadin use: -Evaluated by hematology -Received FFP and protamine along with pRBCs -Resumed coumadin -Monitor H/H periodically. Hemoglobin stable at 10.2. Gram-negative yahaira UTI: treated Hypernatremia: Repeat am BMP. Hypokalemia: Improved. -Monitor and replete as needed. PT evaluate and treat GI PPx: Protonix DVT PPx: SCDs, coumadin. Discharge Planning Per PT, return to rehab. CM to follow. Bebe Stinson Sep 11, 2016 10:36
[2016-09-11] MEDS: WARFARIN SOD 2.5 MG TAB PO SCH (17:02)
[2016-09-11 20:00] VITALS: BP 110/63; PULSE 76; RESP 16; TEMP 98.1; O2SAT 96
[2016-09-11] MEDS: DONEPEZIL HCL 5 MG TAB PO SCH (20:38)
[2016-09-11] MEDS: ATORVASTATIN 40 MG TAB PO SCH (20:38)
[2016-09-12] MEDS: CHLORHEXIDINE GLUCONATE 2 % 1 PACK (2 CLOTHS) TOP SCH (04:00)
[2016-09-12] MEDS: QUEtiapine FUMARATE 25 MG TAB PO SCH ×2 (07:46→20:48)
[2016-09-12] MEDS: SERTRALINE HCL 50 MG TAB PO SCH (07:46)
[2016-09-12] MEDS: ISOSORBIDE MONONITRATE 60 MG TAB PO SCH (07:46)
[2016-09-12] MEDS: MEMANTINE HCL 10 MG TAB PO SCH ×2 (07:46→20:48)
[2016-09-12] MEDS: DOCUSATE SODIUM 100 MG CAP PO SCH ×2 (07:47→20:48)
[2016-09-12] MEDS: ATENOLOL 25 MG TAB PO SCH (07:47)
[2016-09-12] MEDS: ARTIFICIAL TEARS OPTH SOLN 15 ML BTL EACH EYE SCH ×3 (07:48→16:48)
[2016-09-12] MEDS: SODIUM CHLORIDE 0.9% FLUSH 5 ML FLUSH IV FLUSH SCH ×2 (07:51→20:47)
[2016-09-12 08:00] VITALS: BP 122/85; PULSE 76; RESP 16; TEMP 97.4; O2SAT 96
[2016-09-12 08:14] LABS: POTASSIUM 3.5 MEQ/L (3.5-5.1)
[2016-09-12 08:18] LABS: BICARBONATE 26.5 MEQ/L (21.0-32.0)
[2016-09-12 08:19] LABS: APTT (PATIENT) 34.5 SEC (24.3-30.1); INTERNATIONAL NORMALIZED RATIO 2.3 RATIO; PROTHROMBIN TIME - PATIENT 26.4 SEC (9.8-11.6)
--- NOTE | 2016-09-12 10:31 | HHI.PR ---
Subjective Remarks Follow-up for dementia. Patient is Italian-speaking and I spoke to the patient in Italian. Patient denies having any complaints. She is tired and hungry. She denies pain anywhere. Objective Vitals Vital Signs Date Time Temp Pulse Resp B/P Pulse Ox O2 Delivery O2 Flow Rate FiO2 09/12/16 08:00 97.4 76 16 122/85 96 09/11/16 20:00 98.1 76 16 110/63 96 09/11/16 20:00 96 Room Air I/O 09/11/16 09/11/16 09/11/16 09/12/16 09/12/16 09/12/16 07:00 15:00 23:00 07:00 15:00 23:00 Intake Total 80 ml 720 ml 24 ml 0 ml Balance 80 ml 720 ml 24 ml 0 ml Intake Oral 80 ml 720 ml 24 ml 0 ml # Voids 0 0 0 # Bowel Movements 0 0 0 Result Diagram: 09/12/16 0735 Objective Remarks GENERAL: Well-developed, well-nourished patient in no apparent distress sitting in recliner. CARDIOVASCULAR: Regular rate and rhythm. RESPIRATORY: No accessory muscle use. Clear to auscultation. Breath sounds equal bilaterally. NEUROLOGICAL: Awake and alert. Motor grossly within normal limits. Witnessed to be ambulating with walker. Normal speech. Procedures none Urinary Catheter: No Vascular Central Line Catheter: No A/P Problem List: (1) Dementia with behavioral disturbance ICD Code: F03.91 Status: Chronic (2) HTN (hypertension) ICD Code: I10 Status: Chronic (3) CAD (coronary artery disease) ICD Code: I25.10 Status: Chronic (4) Rectus sheath hematoma ICD Code: S30.1XXA Status: Acute (5) ALIYAH (acute kidney injury) ICD Code: N17.9 Status: Acute Assessment and Plan Dementia with behavioral disturbance -Continue Seroquel, Sertraline, Namenda, Aricept -Psychiatry follow-up appreciated; Dillon Act lifted; patient does not meet the criteria for admission to psych. History of hypertension/dyslipidemia/aVR/CAD -Echocardiogram with AV prosthesis -Continue atenolol and Imdur with hold parameters. Clonidine and hydralazine as needed. -Lipitor restarted. -Continue Coumadin. INR goal 2.5-3.0. INR 2.3 today. Pharmacy dosing. Rectus sheath hematoma: Stable -CTabdomen/posterior left rectus sheath hematoma which is stable on repeat CT. -Evaluated by hematology. -Resumed coumadin and will monitor closely. Acute kidney injury: Resolved. -Avoid nephrotoxic drugs -Accurate I/Os -Monitor urine output Anemia/Thrombocytopenia/Coumadin use: -Evaluated by hematology -Received FFP and protamine along with pRBCs -Resumed coumadin -Monitor H/H periodically. Hemoglobin stable at 10.2. Gram-negative yahaira UTI: treated Hypernatremia: BMP today reviewed. Na 143. Resolved. Hypokalemia: Resolved. K+ 3.5 today. -Monitor periodically and replete as needed. PT evaluate and treat GI PPx: Protonix DVT PPx: SCDs, Coumadin. Discharge Planning Per PT, return to rehab. CM following. [facility] evaluating. Bebe Stinson Sep 12, 2016 10:31
[2016-09-12] MEDS: WARFARIN SOD 2.5 MG TAB PO SCH (16:47)
[2016-09-12 20:00] VITALS: BP 111/81; PULSE 72; RESP 16; TEMP 95.9; O2SAT 98
[2016-09-12] MEDS: DONEPEZIL HCL 5 MG TAB PO SCH (20:47)
[2016-09-12] MEDS: ATORVASTATIN 40 MG TAB PO SCH (20:48)
[2016-09-13] MEDS: CHLORHEXIDINE GLUCONATE 2 % 1 PACK (2 CLOTHS) TOP SCH (03:44)
[2016-09-13 07:15] VITALS: BP 156/85; PULSE 61; RESP 20; TEMP 97.4; O2SAT 94
[2016-09-13 08:52] LABS: APTT (PATIENT) 35.3 SEC (24.3-30.1); INTERNATIONAL NORMALIZED RATIO 2.3 RATIO; PROTHROMBIN TIME - PATIENT 26.5 SEC (9.8-11.6)
[2016-09-13] MEDS: SODIUM CHLORIDE 0.9% FLUSH 5 ML FLUSH IV FLUSH SCH ×2 (09:00→21:42)
--- NOTE | 2016-09-13 10:41 | HHI.PR ---
Subjective Remarks Follow-up for dementia. Patient is Upper Sorbian-speaking and I spoke to the patient in Upper Sorbian. She denies any acute complaints. Denies any pain. Objective Vitals Vital Signs Date Time Temp Pulse Resp B/P Pulse Ox O2 Delivery O2 Flow Rate FiO2 09/13/16 07:15 97.4 61 20 156/85 94 09/12/16 20:00 95.9 72 16 111/81 98 I/O 09/12/16 09/12/16 09/12/16 09/13/16 09/13/16 09/13/16 07:00 15:00 23:00 07:00 15:00 23:00 Intake Total 0 ml 360 ml 550 ml 50 ml Balance 0 ml 360 ml 550 ml 50 ml Intake Oral 0 ml 360 ml 550 ml 50 ml # Voids 0 2 2 1 # Bowel Movements 0 0 Result Diagram: 09/12/16 0735 Objective Remarks GENERAL: Well-developed, well-nourished patient in no apparent distress sitting in recliner. CARDIOVASCULAR: Regular rate and rhythm. RESPIRATORY: No accessory muscle use. Clear to auscultation. Breath sounds equal bilaterally. GASTROINTESTINAL: Abdomen soft, nontender, nondistended. NEUROLOGICAL: Awake and alert. Motor grossly within normal limits. Normal speech. Procedures none Urinary Catheter: No Vascular Central Line Catheter: No A/P Problem List: (1) Dementia with behavioral disturbance ICD Code: F03.91 Status: Chronic (2) HTN (hypertension) ICD Code: I10 Status: Chronic (3) CAD (coronary artery disease) ICD Code: I25.10 Status: Chronic (4) Rectus sheath hematoma ICD Code: S30.1XXA Status: Acute (5) ALIYAH (acute kidney injury) ICD Code: N17.9 Status: Acute Assessment and Plan Dementia with behavioral disturbance -Continue Seroquel, Sertraline, Namenda, Aricept -Psychiatry follow-up appreciated; Dillon Act lifted; patient does not meet the criteria for admission to psych. History of hypertension/dyslipidemia/aVR/CAD -Echocardiogram with AV prosthesis -Continue atenolol and Imdur with hold parameters. Clonidine and hydralazine as needed. -Lipitor restarted. -Continue Coumadin. INR goal 2.5-3.0. INR 2.3 today. Pharmacy dosing. Rectus sheath hematoma: Stable -CTabdomen/posterior left rectus sheath hematoma which is stable on repeat CT. -Evaluated by hematology. -Resumed coumadin and will monitor closely. Acute kidney injury: Resolved. -Avoid nephrotoxic drugs -Accurate I/Os -Monitor urine output Anemia/Thrombocytopenia/Coumadin use: -Evaluated by hematology -Received FFP and protamine along with pRBCs -Resumed coumadin -Monitor H/H periodically. Hemoglobin stable at 10.2. Gram-negative yahaira UTI: treated Hypernatremia: Resolved. Hypokalemia: Resolved. -Monitor periodically and replete as needed. PT evaluate and treat GI PPx: Protonix DVT PPx: SCDs, Coumadin. Discharge Planning Per PT, return to rehab. CM following. [facility] evaluating. Bebe Stinson Sep 13, 2016 10:41
[2016-09-13] MEDS: ATENOLOL 25 MG TAB PO SCH (10:42)
[2016-09-13] MEDS: QUEtiapine FUMARATE 25 MG TAB PO SCH ×2 (10:42→20:42)
[2016-09-13] MEDS: DOCUSATE SODIUM 100 MG CAP PO SCH ×2 (10:42→20:41)
[2016-09-13] MEDS: ARTIFICIAL TEARS OPTH SOLN 15 ML BTL EACH EYE SCH ×3 (10:42→17:41)
[2016-09-13] MEDS: MEMANTINE HCL 10 MG TAB PO SCH ×2 (10:42→20:41)
[2016-09-13] MEDS: SERTRALINE HCL 50 MG TAB PO SCH (10:42)
[2016-09-13] MEDS: ISOSORBIDE MONONITRATE 60 MG TAB PO SCH (10:42)
[2016-09-13] MEDS: WARFARIN SOD 2.5 MG TAB PO SCH (17:40)
[2016-09-13 20:00] VITALS: BP 125/59; PULSE 71; RESP 18; TEMP 98.4; O2SAT 95
[2016-09-13] MEDS: ATORVASTATIN 40 MG TAB PO SCH (20:41)
[2016-09-13] MEDS: DONEPEZIL HCL 5 MG TAB PO SCH (20:42)
[2016-09-14] MEDS: CHLORHEXIDINE GLUCONATE 2 % 1 PACK (2 CLOTHS) TOP SCH (04:00)
[2016-09-14 07:53] LABS: APTT (PATIENT) 34.9 SEC (24.3-30.1); INTERNATIONAL NORMALIZED RATIO 2.2 RATIO; PROTHROMBIN TIME - PATIENT 25.5 SEC (9.8-11.6)
[2016-09-14 08:00] VITALS: BP 114/64; PULSE 57; RESP 19; TEMP 96.2; O2SAT 95
[2016-09-14] MEDS: ATENOLOL 25 MG TAB PO SCH (09:00)
[2016-09-14] MEDS: MEMANTINE HCL 10 MG TAB PO SCH ×2 (09:15→20:48)
[2016-09-14] MEDS: DOCUSATE SODIUM 100 MG CAP PO SCH ×2 (09:15→20:48)
[2016-09-14] MEDS: ISOSORBIDE MONONITRATE 60 MG TAB PO SCH (09:15)
[2016-09-14] MEDS: QUEtiapine FUMARATE 25 MG TAB PO SCH ×2 (09:15→20:47)
[2016-09-14] MEDS: SODIUM CHLORIDE 0.9% FLUSH 5 ML FLUSH IV FLUSH SCH ×2 (09:15→20:48)
[2016-09-14] MEDS: SERTRALINE HCL 50 MG TAB PO SCH (09:15)
[2016-09-14] MEDS: ARTIFICIAL TEARS OPTH SOLN 15 ML BTL EACH EYE SCH ×3 (09:17→18:01)
--- NOTE | 2016-09-14 12:13 | HHI.PR ---
Subjective Remarks Patient denies any pain. She states "I'm good". Atenolol was held due to bradycardia. Objective Vitals Vital Signs Date Time Temp Pulse Resp B/P Pulse Ox O2 Delivery O2 Flow Rate FiO2 09/14/16 08:00 96.2 57 19 114/64 95 09/13/16 20:00 98.4 71 18 125/59 95 I/O 09/13/16 09/13/16 09/13/16 09/14/16 09/14/16 09/14/16 07:00 15:00 23:00 07:00 15:00 23:00 Intake Total 50 ml 800 ml 240 ml 240 ml Balance 50 ml 800 ml 240 ml 240 ml Intake Oral 50 ml 800 ml 240 ml 240 ml # Voids 1 4 1 1 # Bowel Movements 0 1 0 Result Diagram: 09/12/16 0735 Objective Remarks GENERAL: Well-developed, well-nourished patient in no apparent distress sitting in bed. CARDIOVASCULAR: Regular rate and rhythm. RESPIRATORY: No accessory muscle use. Clear to auscultation. Breath sounds equal bilaterally. GASTROINTESTINAL: Abdomen soft, nontender, nondistended. NEUROLOGICAL: Awake and alert. Motor grossly within normal limits. Normal speech. Procedures none Urinary Catheter: No Vascular Central Line Catheter: No A/P Problem List: (1) Dementia with behavioral disturbance ICD Code: F03.91 Status: Chronic (2) HTN (hypertension) ICD Code: I10 Status: Chronic (3) CAD (coronary artery disease) ICD Code: I25.10 Status: Chronic (4) Rectus sheath hematoma ICD Code: S30.1XXA Status: Acute (5) ALIYAH (acute kidney injury) ICD Code: N17.9 Status: Acute Assessment and Plan Dementia with behavioral disturbance -Continue Seroquel, Sertraline, Namenda, Aricept -Psychiatry follow-up appreciated; Dillon Act lifted; patient does not meet the criteria for admission to psych. History of hypertension/dyslipidemia/aVR/CAD -Echocardiogram with AV prosthesis -Continue atenolol and Imdur with hold parameters. Clonidine and hydralazine as needed. -Lipitor restarted. -Continue Coumadin. INR goal 2.5-3.0. INR 2.2 today. Pharmacy dosing. Rectus sheath hematoma: Stable -CT abdomen/posterior left rectus sheath hematoma which is stable on repeat CT. -Evaluated by hematology. -Resumed coumadin and will monitor closely. Acute kidney injury: Resolved. -Avoid nephrotoxic drugs -Accurate I/Os -Monitor urine output Anemia/Thrombocytopenia/Coumadin use: -Evaluated by hematology -Received FFP and protamine along with pRBCs -Resumed coumadin -Monitor H/H periodically. Hemoglobin stable at 10.2. Gram-negative yahaira UTI: treated Hypernatremia: Resolved. Hypokalemia: Resolved. -Monitor periodically and replete as needed. PT evaluate and treat GI PPx: Protonix DVT PPx: SCDs, Coumadin. Discharge Planning Per PT, return to rehab. CM following. [facility] evaluating. Bebe Stinson Sep 14, 2016 12:13
[2016-09-14] MEDS: WARFARIN SOD 2.5 MG TAB PO SCH (16:29)
[2016-09-14 20:00] VITALS: BP 136/58; PULSE 71; RESP 18; TEMP 97.5; O2SAT 96
[2016-09-14] MEDS: ATORVASTATIN 40 MG TAB PO SCH (20:47)
[2016-09-14] MEDS: DONEPEZIL HCL 5 MG TAB PO SCH (20:48)
[2016-09-15] MEDS: CHLORHEXIDINE GLUCONATE 2 % 1 PACK (2 CLOTHS) TOP SCH (04:00)
[2016-09-15 08:00] VITALS: BP 128/79; PULSE 82; RESP 18; TEMP 97.8; O2SAT 94
[2016-09-15 08:32] LABS: APTT (PATIENT) 33.8 SEC (24.3-30.1); INTERNATIONAL NORMALIZED RATIO 2.3 RATIO
[2016-09-15] MEDS: MEMANTINE HCL 10 MG TAB PO SCH ×2 (08:39→20:31)
[2016-09-15] MEDS: ATENOLOL 25 MG TAB PO SCH (08:39)
[2016-09-15] MEDS: SERTRALINE HCL 50 MG TAB PO SCH (08:39)
[2016-09-15] MEDS: ISOSORBIDE MONONITRATE 60 MG TAB PO SCH (08:39)
[2016-09-15] MEDS: DOCUSATE SODIUM 100 MG CAP PO SCH ×2 (08:39→20:33)
[2016-09-15] MEDS: QUEtiapine FUMARATE 25 MG TAB PO SCH ×2 (08:39→20:31)
[2016-09-15] MEDS: SODIUM CHLORIDE 0.9% FLUSH 5 ML FLUSH IV FLUSH SCH ×2 (08:39→20:33)
[2016-09-15] MEDS: ARTIFICIAL TEARS OPTH SOLN 15 ML BTL EACH EYE SCH ×3 (08:39→18:20)
--- NOTE | 2016-09-15 11:37 | HHI.PR ---
Subjective Remarks The nurse states the patient mentioned something about heart surgery this morning. Patient is [place]-speaking only. Official call center rn was utilized. The patient tells us she has had cardiac surgery in the past. She denies any chest pain or shortness of breath earlier. She states she is tired but admits to sleeping. Denies any pain. Objective Vitals Vital Signs Date Time Temp Pulse Resp B/P Pulse Ox O2 Delivery O2 Flow Rate FiO2 09/15/16 08:00 97.8 82 18 128/79 94 09/14/16 20:00 97.5 71 18 136/58 96 I/O 09/14/16 09/14/16 09/14/16 09/15/16 09/15/16 09/15/16 07:00 15:00 23:00 07:00 15:00 23:00 Intake Total 240 ml 360 ml 220 ml 120 ml Output Total 2 ml Balance 240 ml 358 ml 220 ml 120 ml Intake Oral 240 ml 360 ml 220 ml 120 ml Output Urine Total 2 ml # Voids 1 2 1 # Bowel Movements 0 1 0 0 Result Diagram: 09/12/16 0735 Objective Remarks GENERAL: Well-developed, well-nourished patient in no apparent distress sitting in bed. Appears tired. CARDIOVASCULAR: Regular rate and rhythm. RESPIRATORY: No accessory muscle use. Clear to auscultation. Breath sounds equal bilaterally. GASTROINTESTINAL: Abdomen soft, nontender, nondistended. NEUROLOGICAL: Awake and alert, but disoriented. The patient knows she is at the hospital, but does not know the city, month, or year. Motor grossly within normal limits. Normal speech. Procedures none Urinary Catheter: No Vascular Central Line Catheter: No A/P Problem List: (1) Dementia with behavioral disturbance ICD Code: F03.91 Status: Chronic (2) HTN (hypertension) ICD Code: I10 Status: Chronic (3) CAD (coronary artery disease) ICD Code: I25.10 Status: Chronic (4) Rectus sheath hematoma ICD Code: S30.1XXA Status: Acute (5) ALIYAH (acute kidney injury) ICD Code: N17.9 Status: Acute Assessment and Plan Dementia with behavioral disturbance -Continue Seroquel, Sertraline, Namenda, Aricept -Psychiatry follow-up appreciated; Dillon Act lifted; patient does not meet the criteria for admission to psych. -Patient currently stable. History of hypertension/dyslipidemia/aVR/CAD -Echocardiogram with AV prosthesis -Continue atenolol and Imdur with hold parameters. Clonidine and hydralazine as needed. -Lipitor restarted. -Continue Coumadin. INR goal 2.5-3.0. INR 2.3 today. Pharmacy dosing. Rectus sheath hematoma: Stable -CT abdomen/posterior left rectus sheath hematoma which is stable on repeat CT. -Evaluated by hematology. -Resumed coumadin and will monitor closely. Acute kidney injury: Resolved. -Avoid nephrotoxic drugs -Accurate I/Os -Monitor urine output Anemia/Thrombocytopenia/Coumadin use: -Evaluated by hematology -Received FFP and protamine along with pRBCs -Resumed coumadin -Monitor H/H periodically. Hemoglobin stable at 10.2. Gram-negative yahaira UTI: treated Hypernatremia: Resolved. Hypokalemia: Resolved. -Monitor periodically and replete as needed. PT evaluate and treat GI PPx: Protonix DVT PPx: SCDs, Coumadin. Discharge Planning CM following. 09/14: [facility] evaluating for placement. Bebe Stinson Sep 15, 2016 11:37
[2016-09-15] MEDS: WARFARIN SOD 2.5 MG TAB PO SCH (16:49)
[2016-09-15 20:00] VITALS: BP 144/70; PULSE 74; RESP 16; TEMP 99.1; O2SAT 96
[2016-09-15] MEDS: ATORVASTATIN 40 MG TAB PO SCH (20:31)
[2016-09-15] MEDS: DONEPEZIL HCL 5 MG TAB PO SCH (20:31)
[2016-09-16] MEDS: CHLORHEXIDINE GLUCONATE 2 % 1 PACK (2 CLOTHS) TOP SCH (04:00)
[2016-09-16 08:00] VITALS: BP 161/85; PULSE 92; RESP 19; TEMP 97.2; O2SAT 98
[2016-09-16] MEDS: QUEtiapine FUMARATE 25 MG TAB PO SCH ×2 (08:36→20:35)
[2016-09-16] MEDS: ARTIFICIAL TEARS OPTH SOLN 15 ML BTL EACH EYE SCH ×3 (08:36→18:13)
[2016-09-16] MEDS: ATENOLOL 25 MG TAB PO SCH (08:37)
[2016-09-16] MEDS: MEMANTINE HCL 10 MG TAB PO SCH ×2 (08:37→20:36)
[2016-09-16] MEDS: SERTRALINE HCL 50 MG TAB PO SCH (08:37)
[2016-09-16] MEDS: ISOSORBIDE MONONITRATE 60 MG TAB PO SCH (08:37)
[2016-09-16] MEDS: DOCUSATE SODIUM 100 MG CAP PO SCH ×2 (08:37→20:35)
[2016-09-16] MEDS: SODIUM CHLORIDE 0.9% FLUSH 5 ML FLUSH IV FLUSH SCH ×2 (08:37→20:36)
[2016-09-16 10:02] LABS: APTT (PATIENT) 33.6 SEC (24.3-30.1); PROTHROMBIN TIME - PATIENT 22.5 SEC (9.8-11.6)
[2016-09-16] MEDS: WARFARIN SOD 2.5 MG TAB PO SCH (16:00)
[2016-09-16 16:54] LABS: INTERNATIONAL NORMALIZED RATIO 5.4 RATIO; PROTHROMBIN TIME - PATIENT 64.1 SEC (9.8-11.6)
--- NOTE | 2016-09-16 17:16 | HHI.PR ---
Subjective Remarks Patient seen and evaluated today in follow-up for dementia and placement. INR greater than 5 today. No active bleeding. Plan discussed with pharmacy Objective Vitals Vital Signs Date Time Temp Pulse Resp B/P Pulse Ox O2 Delivery O2 Flow Rate FiO2 09/16/16 08:00 97.2 92 19 161/85 98 09/15/16 20:00 99.1 74 16 144/70 96 I/O 09/15/16 09/15/16 09/15/16 09/16/16 09/16/16 09/16/16 07:00 15:00 23:00 07:00 15:00 23:00 Intake Total 120 ml 480 ml Balance 120 ml 480 ml Intake Oral 120 ml 480 ml # Voids 1 3 4 2 # Bowel Movements 0 1 0 1 Result Diagram: 09/12/16 0735 Objective Remarks GENERAL: This is a well-nourished, well-developed patient, in no apparent distress. CARDIOVASCULAR: Regular rate and rhythm without murmurs, gallops, or rubs. RESPIRATORY: Clear to auscultation. Breath sounds equal bilaterally. No wheezes , rales, or rhonchi. GASTROINTESTINAL: Abdomen soft, non-tender, nondistended. Normal active bowel sounds MUSCULOSKELETAL: Extremities without clubbing, cyanosis, or edema. NEURO: Alert & Oriented to name, confused Procedures none A/P Assessment and Plan Hospital day #20 1. Dementia with behavioral disturbance, Continue Seroquel, Sertraline, Namenda , Aricept 2. History of hypertension/dyslipidemia/aVR/CAD. atenolol and Imdur with hold parameters. Clonidine and hydralazine as needed. -Lipitor 3. AV prosthesis, Continue Coumadin. INR goal 2.5-3.0. INR 5.4 today. Pharmacy dosing. hold coumadin and recheck in Tanisha Rogers MD Sep 16, 2016 17:16
[2016-09-16] MEDS: DONEPEZIL HCL 5 MG TAB PO SCH (20:36)
[2016-09-16] MEDS: ATORVASTATIN 40 MG TAB PO SCH (20:36)
[2016-09-16 21:52] VITALS: BP 162/86; PULSE 67; RESP 18; TEMP 97.3; O2SAT 96
[2016-09-17] MEDS: CHLORHEXIDINE GLUCONATE 2 % 1 PACK (2 CLOTHS) TOP SCH (04:00)
[2016-09-17 08:00] VITALS: BP 116/79; PULSE 65; RESP 16; TEMP 98; O2SAT 96
[2016-09-17 08:26] LABS: INTERNATIONAL NORMALIZED RATIO 1.9 RATIO; PROTHROMBIN TIME - PATIENT 21.4 SEC (9.8-11.6)
[2016-09-17] MEDS: SODIUM CHLORIDE 0.9% FLUSH 5 ML FLUSH IV FLUSH SCH ×2 (08:59→20:50)
--- NOTE | 2016-09-17 09:34 | HHI.PR ---
Subjective Remarks Follow-up for dementia. Official [employer] was utilized as patient is Mongolian -speaking only. Nurse present. The patient had mentioned something about her cardiac surgery yesterday. Today she states she had pain in center of her chest yesterday and that it comes and goes. Admitted to SOB. She states it was "a little bad" but not strong. She initially stated that she had not had chest pain since her heart surgery but then later stated it is a chronic issue. Also admits to feeling a little anxious. Denies any dizziness. Denies any abdominal pain, nausea, vomiting. INR was noted to be elevated yesterday. Patient denies any hematochezia or melena. Denies any hematuria. Nurse states previous abdominal hematoma is improved. Objective Vitals Vital Signs Date Time Temp Pulse Resp B/P Pulse Ox O2 Delivery O2 Flow Rate FiO2 09/17/16 08:00 98.0 65 16 116/79 96 09/16/16 21:52 97.3 67 18 162/86 96 I/O 09/16/16 09/16/16 09/16/16 09/17/16 09/17/16 09/17/16 07:00 15:00 23:00 07:00 15:00 23:00 Intake Total 360 ml Balance 360 ml Intake Oral 360 ml # Voids 4 2 3 3 # Bowel Movements 0 1 0 0 Objective Remarks GENERAL: Well-developed, well-nourished patient in no apparent distress sitting in recliner in day room. SKIN: Yellowing ecchymosis of the abdomen, no induration. CHEST: No reproducible tenderness over the chest. CARDIOVASCULAR: Regular rate and rhythm. Pacemaker noted. RESPIRATORY: No accessory muscle use. Clear to auscultation. Breath sounds equal bilaterally. GASTROINTESTINAL: Abdomen soft, nontender, nondistended. NEUROLOGICAL: Awake and alert. Normal speech. Procedures none Urinary Catheter: No Vascular Central Line Catheter: No A/P Problem List: (1) Dementia with behavioral disturbance ICD Code: F03.91 Status: Chronic (2) HTN (hypertension) ICD Code: I10 Status: Chronic (3) CAD (coronary artery disease) ICD Code: I25.10 Status: Chronic (4) Rectus sheath hematoma ICD Code: S30.1XXA Status: Acute (5) ALIYAH (acute kidney injury) ICD Code: N17.9 Status: Acute Assessment and Plan Dementia with behavioral disturbance -Continue Seroquel, Sertraline, Namenda, Aricept -Psychiatry follow-up appreciated; [place] Act lifted; patient does not meet the criteria for admission to psych. -Patient currently stable. History of hypertension/dyslipidemia/aVR/CAD -Echocardiogram with AV prosthesis -Continue atenolol and Imdur with hold parameters. Clonidine and hydralazine as needed. -Lipitor restarted. -Continue Coumadin. INR goal 2.5-3.0. INR 1.9 today. Pharmacy dosing. -Patient apparently had some chest pain yesterday but it seems that this may be a chronic issue since her heart surgery and not new. The patient is well currently; I do not believe the patient requires any emergent cardiac workup. Rectus sheath hematoma: Improving -CT abdomen/posterior left rectus sheath hematoma which is stable on repeat CT. -Evaluated by hematology. -Resumed coumadin and will monitor closely. Acute kidney injury: Resolved. -Avoid nephrotoxic drugs -Accurate I/Os -Monitor urine output Anemia/Thrombocytopenia/Coumadin use: -Evaluated by hematology -Received FFP and protamine along with pRBCs -Resumed coumadin -Monitor H/H periodically. Hemoglobin stable at 10.2. Gram-negative yahaira UTI: treated Hypernatremia: Resolved. Hypokalemia: Resolved. -Monitor periodically and replete as needed. PT evaluate and treat GI PPx: Protonix DVT PPx: SCDs, Coumadin. Discharge Planning CM following. 09/14: [facility] evaluating for placement. Bebe Stinson Sep 17, 2016 09:34
[2016-09-17] MEDS: ISOSORBIDE MONONITRATE 60 MG TAB PO SCH (09:55)
[2016-09-17] MEDS: ARTIFICIAL TEARS OPTH SOLN 15 ML BTL EACH EYE SCH ×3 (09:55→17:53)
[2016-09-17] MEDS: ATENOLOL 25 MG TAB PO SCH (09:56)
[2016-09-17] MEDS: SERTRALINE HCL 50 MG TAB PO SCH (09:56)
[2016-09-17] MEDS: DOCUSATE SODIUM 100 MG CAP PO SCH ×2 (09:56→20:49)
[2016-09-17] MEDS: MEMANTINE HCL 10 MG TAB PO SCH ×2 (09:56→20:50)
[2016-09-17] MEDS: QUEtiapine FUMARATE 25 MG TAB PO SCH ×2 (09:56→20:49)
[2016-09-17] MEDS: WARFARIN SOD 2.5 MG TAB PO SCH (16:27)
[2016-09-17 20:00] VITALS: BP 151/91; PULSE 74; RESP 20; TEMP 98.5; O2SAT 95
[2016-09-17] MEDS: DONEPEZIL HCL 5 MG TAB PO SCH (20:49)
[2016-09-17] MEDS: ATORVASTATIN 40 MG TAB PO SCH (20:50)
[2016-09-18] MEDS: CHLORHEXIDINE GLUCONATE 2 % 1 PACK (2 CLOTHS) TOP SCH (04:00)
[2016-09-18 08:00] VITALS: BP 118/69; PULSE 82; RESP 16; TEMP 97.4; O2SAT 98
[2016-09-18] MEDS: ARTIFICIAL TEARS OPTH SOLN 15 ML BTL EACH EYE SCH ×2 (09:00→12:29)
[2016-09-18] MEDS: SERTRALINE HCL 50 MG TAB PO SCH (09:51)
[2016-09-18] MEDS: ATENOLOL 25 MG TAB PO SCH (09:51)
[2016-09-18] MEDS: DOCUSATE SODIUM 100 MG CAP PO SCH ×2 (09:51→20:36)
[2016-09-18] MEDS: QUEtiapine FUMARATE 25 MG TAB PO SCH ×2 (09:51→20:36)
[2016-09-18] MEDS: ISOSORBIDE MONONITRATE 60 MG TAB PO SCH (09:51)
[2016-09-18] MEDS: MEMANTINE HCL 10 MG TAB PO SCH ×2 (09:51→20:36)
[2016-09-18] MEDS: SODIUM CHLORIDE 0.9% FLUSH 5 ML FLUSH IV FLUSH SCH (09:52)
--- NOTE | 2016-09-18 15:13 | HHI.PR ---
Subjective Remarks Patient seen and examined today. Patient denied any chest pain, abdominal pain , swelling, follow up on dementia. Objective Vitals Vital Signs Date Time Temp Pulse Resp B/P Pulse Ox O2 Delivery O2 Flow Rate FiO2 09/18/16 08:00 97.4 82 16 118/69 98 09/17/16 20:00 98.5 74 20 151/91 95 I/O 09/17/16 09/17/16 09/17/16 09/18/16 09/18/16 09/18/16 07:00 15:00 23:00 07:00 15:00 23:00 Intake Total 360 ml 60 ml 60 ml Balance 360 ml 60 ml 60 ml Intake Oral 360 ml 60 ml 60 ml # Voids 3 2 2 1 # Bowel Movements 0 0 0 0 Objective Remarks GENERAL: Well-developed, well-nourished, in no acute distress. alert HEENT: Head is normocephalic without any lesions or masses noted. Facial features are symmetric. Eyes: Extraocular muscles are intact. Conjunctivae were clear. NECK: Supple without any masses. Trachea midline no deviation. No JVD, CARDIAC: Regular rhythm, regular rate. S1/S2 are heard. No murmurs gallops or rubs. Obvious valve click LUNGS: Clear to auscultation bilaterally. No wheeze, rhonchi or rales. No use of accessory muscles on inspiration or expiration. ABDOMEN: Soft, nontender. Nondistended. Bowel sounds heard in all 4 quadrants. No organomegaly or masses. Negative rebound, negative guarding EXTREMITIES: No edema, pulses are equal bilaterally. No cyanosis or clubbing NEUROLOGY: Mood and affect appear appropriate. Cranial nerves II through XII grossly intact. Moving all extremities, speech is clear Procedures none Urinary Catheter: No Vascular Central Line Catheter: No A/P Assessment and Plan Dementia with behavioral disturbance -Continue Seroquel, Sertraline, Namenda, Aricept -Psychiatry follow-up appreciated; [place] Act lifted; patient does not meet the criteria for admission to psych. -Patient currently stable. History of hypertension/dyslipidemia/aVR/CAD -Echocardiogram with AV prosthesis -Continue atenolol and Imdur with hold parameters. Clonidine and hydralazine as needed. -Lipitor restarted. -Continue Coumadin. INR goal 2.5-3.0. INR 1.9 today. Pharmacy dosing. Rectus sheath hematoma: Improving -CT abdomen/posterior left rectus sheath hematoma which is stable on repeat CT. -Evaluated by hematology. -Continue on coumadin and will monitor closely. Acute kidney injury: Resolved. -Avoid nephrotoxic drugs -Accurate I/Os -Monitor urine output Anemia/Thrombocytopenia/Coumadin use: -Evaluated by hematology -Received FFP and protamine along with pRBCs -Resumed coumadin -Monitor H/H periodically. Hemoglobin stable at 10.2. DVT PPx: SCDs, Coumadin. Discharge Planning Case management for discharge planning. Last documented activity is 09/14/16 which case management spoke with daughter and they are evaluating [place] for acceptance. Jeferson Beltran Sep 18, 2016 15:13
[2016-09-18] MEDS ORDERED: ONDANSETRON ODT 4 MG TAB PO PRN (15:15)
[2016-09-18] MEDS: WARFARIN SOD 2.5 MG TAB PO SCH (17:36)
[2016-09-18 20:00] VITALS: BP 105/55; PULSE 72; RESP 21; TEMP 97.8; O2SAT 96
[2016-09-18] MEDS: ATORVASTATIN 40 MG TAB PO SCH (20:36)
[2016-09-18] MEDS: DONEPEZIL HCL 5 MG TAB PO SCH (20:36)
[2016-09-19 07:13] LABS: BASOPHIL # 0.1 TH/MM3 (0-0.2); BASOPHIL % 1.6 % (0.0-2.0); EOSINOPHIL # 0.2 TH/MM3 (0-0.4); EOSINOPHIL % 4.5 % (0.0-4.0); HEMATOCRIT 34.3 % (35.0-46.0); HEMO FLAGS DIFF FINAL; LYMPH % 34.1 % (9.0-44.0); LYMPHOCYTE # 1.4 TH/MM3 (1.0-4.8); MEAN CORPUSCULAR HEMOGLOBIN 30.6 PG (27.0-34.0); MEAN CORPUSCULAR HGB CONC 32.5 % (32.0-36.0); MONO % 9.9 % (0.0-8.0); NEUT % 49.9 % (16.0-70.0); PLATELET COUNT 203 TH/MM3 (150-450); RED BLOOD COUNT 3.65 MIL/MM3 (4.00-5.30); RED CELL DISTRIBUTION WIDTH 15.8 % (11.6-17.2); WHITE BLOOD COUNT 4.1 TH/MM3 (4.0-11.0)
[2016-09-19 07:23] LABS: INTERNATIONAL NORMALIZED RATIO 2.2 RATIO
[2016-09-19 07:52] LABS: POTASSIUM 3.5 MEQ/L (3.5-5.1)
[2016-09-19 07:56] LABS: BICARBONATE 24.7 MEQ/L (21.0-32.0); MAGNESIUM 2.1 MG/DL (1.5-2.5)
[2016-09-19 08:00] VITALS: BP 122/68; PULSE 66; RESP 20; TEMP 96.9; O2SAT 98
[2016-09-19] MEDS: DOCUSATE SODIUM 100 MG CAP PO SCH ×2 (08:56→21:51)
[2016-09-19] MEDS: ATENOLOL 25 MG TAB PO SCH (08:57)
[2016-09-19] MEDS: MEMANTINE HCL 10 MG TAB PO SCH ×2 (08:57→21:51)
[2016-09-19] MEDS: QUEtiapine FUMARATE 25 MG TAB PO SCH ×2 (08:57→21:51)
[2016-09-19] MEDS: SERTRALINE HCL 50 MG TAB PO SCH (08:57)
[2016-09-19] MEDS: ISOSORBIDE MONONITRATE 60 MG TAB PO SCH (08:57)
--- NOTE | 2016-09-19 09:23 | HHI.PR ---
Subjective Remarks Patient seen and examined today. Patient denies any new complaints. No change in clinical status. Objective Vitals Vital Signs Date Time Temp Pulse Resp B/P Pulse Ox O2 Delivery O2 Flow Rate FiO2 09/18/16 20:00 97.8 72 21 105/55 96 I/O 09/18/16 09/18/16 09/18/16 09/19/16 09/19/16 09/19/16 07:00 15:00 23:00 07:00 15:00 23:00 Intake Total 60 ml 360 ml 240 ml 120 ml Balance 60 ml 360 ml 240 ml 120 ml Intake Oral 60 ml 360 ml 240 ml 120 ml # Voids 1 2 1 1 # Bowel Movements 0 0 0 0 Result Diagram: 09/19/1670409/19/16704 Objective Remarks GENERAL: Well-developed, well-nourished, in no acute distress. alert HEENT: Head is normocephalic without any lesions or masses noted. Facial features are symmetric. Eyes: Extraocular muscles are intact. Conjunctivae were clear. NECK: Supple without any masses. Trachea midline no deviation. No JVD, CARDIAC: Regular rhythm, regular rate. S1/S2 are heard. No murmurs gallops or rubs. Obvious valve click LUNGS: Clear to auscultation bilaterally. No wheeze, rhonchi or rales. No use of accessory muscles on inspiration or expiration. ABDOMEN: Soft, nontender. Nondistended. Bowel sounds heard in all 4 quadrants. No organomegaly or masses. Negative rebound, negative guarding EXTREMITIES: No edema, pulses are equal bilaterally. No cyanosis or clubbing NEUROLOGY: Mood and affect appear appropriate. Cranial nerves II through XII grossly intact. Moving all extremities, speech is clear Procedures none Urinary Catheter: No Vascular Central Line Catheter: No A/P Assessment and Plan Dementia with behavioral disturbance -Continue Seroquel, Sertraline, Namenda, Aricept -Psychiatry follow-up appreciated; Dillon Act lifted; patient does not meet the criteria for admission to psych. -Patient currently stable. History of hypertension/dyslipidemia/aVR/CAD -Echocardiogram with AV prosthesis -Continue atenolol and Imdur with hold parameters. Clonidine and hydralazine as needed. -Lipitor restarted. -Continue Coumadin. INR goal 2.5-3.0. INR 2.2 today. Pharmacy dosing. Rectus sheath hematoma: Improving -CT abdomen/posterior left rectus sheath hematoma which is stable on repeat CT. -Evaluated by hematology. -Continue on coumadin and will monitor closely. Acute kidney injury: Resolved. -Avoid nephrotoxic drugs -Accurate I/Os -Monitor urine output Anemia/Thrombocytopenia/Coumadin use: -Evaluated by hematology -Received FFP and protamine along with pRBCs -Resumed coumadin -Monitor H/H periodically. Hemoglobin stable at 10.2. DVT PPx: SCDs, Coumadin. Discharge Planning Case management for discharge planning. Last documented activity is 09/14/16 which case management spoke with daughter and they are evaluating [place] for acceptance. Jeferson Beltran Sep 19, 2016 09:23
[2016-09-19] MEDS: WARFARIN SOD 2.5 MG TAB PO SCH (16:47)
[2016-09-19 20:00] VITALS: BP 137/80; PULSE 92; RESP 20; TEMP 96.9; O2SAT 95
[2016-09-19] MEDS: ATORVASTATIN 40 MG TAB PO SCH (21:51)
[2016-09-19] MEDS: DONEPEZIL HCL 5 MG TAB PO SCH (21:53)
[2016-09-20 08:00] VITALS: BP 151/84; PULSE 69; RESP 20; TEMP 97.2; O2SAT 96
[2016-09-20 08:21] LABS: INTERNATIONAL NORMALIZED RATIO 2.2 RATIO; PROTHROMBIN TIME - PATIENT 24.8 SEC (9.8-11.6)
[2016-09-20] MEDS: MEMANTINE HCL 10 MG TAB PO SCH ×2 (09:14→20:01)
[2016-09-20] MEDS: SERTRALINE HCL 50 MG TAB PO SCH (09:14)
[2016-09-20] MEDS: ISOSORBIDE MONONITRATE 60 MG TAB PO SCH (09:14)
[2016-09-20] MEDS: QUEtiapine FUMARATE 25 MG TAB PO SCH ×2 (09:14→20:01)
[2016-09-20] MEDS: ATENOLOL 25 MG TAB PO SCH (09:14)
[2016-09-20] MEDS: DOCUSATE SODIUM 100 MG CAP PO SCH ×2 (09:15→20:01)
--- NOTE | 2016-09-20 14:12 | HHI.PR ---
Subjective Remarks Patient seen and examined today. Patient denies any pain. No new complaints Objective Vitals Vital Signs Date Time Temp Pulse Resp B/P Pulse Ox O2 Delivery O2 Flow Rate FiO2 09/20/16 08:00 97.2 69 20 151/84 96 09/19/16 20:00 96.9 92 20 137/80 95 I/O 09/19/16 09/19/16 09/19/16 09/20/16 09/20/16 09/20/16 07:00 15:00 23:00 07:00 15:00 23:00 Intake Total 120 ml 600 ml 240 ml 220 ml Balance 120 ml 600 ml 240 ml 220 ml Intake Oral 120 ml 600 ml 240 ml 220 ml IV Total 0 ml # Voids 1 5 1 1 # Bowel Movements 0 0 0 0 Result Diagram: 09/19/1670409/19/16704 Objective Remarks GENERAL: Well-developed, well-nourished, in no acute distress. alert HEENT: Head is normocephalic without any lesions or masses noted. Facial features are symmetric. Eyes: Extraocular muscles are intact. Conjunctivae were clear. NECK: Supple without any masses. Trachea midline no deviation. No JVD, CARDIAC: Regular rhythm, regular rate. S1/S2 are heard. No murmurs gallops or rubs. Obvious valve click LUNGS: Clear to auscultation bilaterally. No wheeze, rhonchi or rales. No use of accessory muscles on inspiration or expiration. ABDOMEN: Soft, nontender. Nondistended. Bowel sounds heard in all 4 quadrants. No organomegaly or masses. Negative rebound, negative guarding EXTREMITIES: No edema, pulses are equal bilaterally. No cyanosis or clubbing NEUROLOGY: Mood and affect appear appropriate. Cranial nerves II through XII grossly intact. Moving all extremities, speech is clear Procedures none Urinary Catheter: No Vascular Central Line Catheter: No A/P Assessment and Plan Dementia with behavioral disturbance -Continue Seroquel, Sertraline, Namenda, Aricept -Psychiatry follow-up appreciated; Dillon Act lifted; patient does not meet the criteria for admission to psych. -Patient currently stable. History of hypertension/dyslipidemia/aVR/CAD -Echocardiogram with AV prosthesis -Continue atenolol and Imdur with hold parameters. Clonidine and hydralazine as needed. -Lipitor restarted. -Continue Coumadin. INR goal 2.5-3.0. INR 2.2 today. Pharmacy dosing. Rectus sheath hematoma: Improving -CT abdomen/posterior left rectus sheath hematoma which is stable on repeat CT. -Evaluated by hematology. -Continue on coumadin and will monitor closely. Acute kidney injury: Resolved. -Avoid nephrotoxic drugs -Accurate I/Os -Monitor urine output Anemia/Thrombocytopenia/Coumadin use: -Evaluated by hematology -Received FFP and protamine along with pRBCs -Resumed coumadin -Monitor H/H periodically. Hemoglobin stable at 10.2. DVT PPx: SCDs, Coumadin. Discharge Planning Case management for discharge planning. Last documented activity is 09/14/16 which case management spoke with daughter and they are evaluating [place] for acceptance. Jeferson Beltran Sep 20, 2016 14:12
[2016-09-20] MEDS: WARFARIN SOD 2.5 MG TAB PO SCH (16:47)
[2016-09-20 20:00] VITALS: BP 119/78; PULSE 65; RESP 18; TEMP 97.4; O2SAT 97
[2016-09-20] MEDS: ATORVASTATIN 40 MG TAB PO SCH (20:01)
[2016-09-20] MEDS: DONEPEZIL HCL 5 MG TAB PO SCH (20:01)
[2016-09-21 05:33] LABS: PROTHROMBIN TIME - PATIENT 22.8 SEC (9.8-11.6)
[2016-09-21 08:00] VITALS: BP 139/81; PULSE 68; RESP 18; TEMP 97.5; O2SAT 97
[2016-09-21] MEDS: ISOSORBIDE MONONITRATE 60 MG TAB PO SCH (09:15)
[2016-09-21] MEDS: SERTRALINE HCL 50 MG TAB PO SCH (09:15)
[2016-09-21] MEDS: ATENOLOL 25 MG TAB PO SCH (09:15)
[2016-09-21] MEDS: DOCUSATE SODIUM 100 MG CAP PO SCH ×2 (09:15→20:45)
[2016-09-21] MEDS: QUEtiapine FUMARATE 25 MG TAB PO SCH ×2 (09:15→20:44)
[2016-09-21] MEDS: MEMANTINE HCL 10 MG TAB PO SCH ×2 (09:15→20:44)
--- NOTE | 2016-09-21 14:00 | HHI.PR ---
Subjective Remarks Patient seen and examined today. Patient denies any new complaints. No change clinical status. Objective Vitals Vital Signs Date Time Temp Pulse Resp B/P Pulse Ox O2 Delivery O2 Flow Rate FiO2 09/21/16 08:00 97.5 68 18 139/81 97 09/20/16 20:00 97.4 65 18 119/78 97 I/O 09/20/16 09/20/16 09/20/16 09/21/16 09/21/16 09/21/16 07:00 15:00 23:00 07:00 15:00 23:00 Intake Total 220 ml 0 ml 240 ml 120 ml Balance 220 ml 0 ml 240 ml 120 ml Intake Oral 220 ml 240 ml 120 ml IV Total 0 ml # Voids 1 0 1 1 # Bowel Movements 0 0 0 Result Diagram: 09/19/1670409/19/16704 Objective Remarks GENERAL: Well-developed, well-nourished, in no acute distress. alert HEENT: Head is normocephalic without any lesions or masses noted. Facial features are symmetric. Eyes: Extraocular muscles are intact. Conjunctivae were clear. NECK: Supple without any masses. Trachea midline no deviation. No JVD, CARDIAC: Regular rhythm, regular rate. S1/S2 are heard. No murmurs gallops or rubs. Obvious valve click LUNGS: Clear to auscultation bilaterally. No wheeze, rhonchi or rales. No use of accessory muscles on inspiration or expiration. ABDOMEN: Soft, nontender. Nondistended. Bowel sounds heard in all 4 quadrants. No organomegaly or masses. Negative rebound, negative guarding EXTREMITIES: No edema, pulses are equal bilaterally. No cyanosis or clubbing NEUROLOGY: Mood and affect appear appropriate. Cranial nerves II through XII grossly intact. Moving all extremities, speech is clear Procedures none Urinary Catheter: No Vascular Central Line Catheter: No A/P Assessment and Plan Dementia with behavioral disturbance -Continue Seroquel, Sertraline, Namenda, Aricept -Psychiatry follow-up appreciated; Dillon Act lifted; patient does not meet the criteria for admission to psych. -Patient currently stable. History of hypertension/dyslipidemia/aVR/CAD -Echocardiogram with AV prosthesis -Continue atenolol and Imdur with hold parameters. Clonidine and hydralazine as needed. -Lipitor restarted. -Continue Coumadin. INR goal 2.5-3.0. INR 2.2 today. Pharmacy dosing. Rectus sheath hematoma: Improving -CT abdomen/posterior left rectus sheath hematoma which is stable on repeat CT. -Evaluated by hematology. -Continue on coumadin and will monitor closely. Acute kidney injury: Resolved. -Avoid nephrotoxic drugs -Accurate I/Os -Monitor urine output Anemia/Thrombocytopenia/Coumadin use: -Evaluated by hematology -Received FFP and protamine along with pRBCs -Resumed coumadin -Monitor H/H periodically. Hemoglobin stable at 10.2. DVT PPx: SCDs, Coumadin. Discharge Planning Case management for discharge planning. Last documented activity is 09/14/16 which case management spoke with daughter and they are evaluating [place] for acceptance. Jeferson Beltran Sep 21, 2016 14:00
[2016-09-21] MEDS: WARFARIN SOD 2.5 MG TAB PO SCH (16:47)
[2016-09-21 20:00] VITALS: BP 124/73; PULSE 66; RESP 20; TEMP 99; O2SAT 98
[2016-09-21] MEDS: ATORVASTATIN 40 MG TAB PO SCH (20:44)
[2016-09-21] MEDS: DONEPEZIL HCL 5 MG TAB PO SCH (20:45)
[2016-09-22 06:06] LABS: INTERNATIONAL NORMALIZED RATIO 2.3 RATIO; PROTHROMBIN TIME - PATIENT 26.9 SEC (9.8-11.6)
[2016-09-22 08:00] VITALS: BP 112/67; PULSE 60; RESP 16; TEMP 96.7; O2SAT 95
[2016-09-22] MEDS: MEMANTINE HCL 10 MG TAB PO SCH ×2 (08:03→20:26)
[2016-09-22] MEDS: SERTRALINE HCL 50 MG TAB PO SCH (08:03)
[2016-09-22] MEDS: DOCUSATE SODIUM 100 MG CAP PO SCH ×2 (08:03→20:26)
[2016-09-22] MEDS: ATENOLOL 25 MG TAB PO SCH (08:03)
[2016-09-22] MEDS: QUEtiapine FUMARATE 25 MG TAB PO SCH ×2 (08:03→20:27)
[2016-09-22] MEDS: ISOSORBIDE MONONITRATE 60 MG TAB PO SCH (08:03)
--- NOTE | 2016-09-22 13:37 | HHI.PR ---
Subjective Remarks Patient seen and examined today. Patient denies any new complaints. No change in clinical status. Objective Vitals Vital Signs Date Time Temp Pulse Resp B/P Pulse Ox O2 Delivery O2 Flow Rate FiO2 09/22/16 08:00 96.7 60 16 112/67 95 09/21/16 20:00 99.0 66 20 124/73 98 I/O 09/21/16 09/21/16 09/21/16 09/22/16 09/22/16 09/22/16 07:00 15:00 23:00 07:00 15:00 23:00 Intake Total 120 ml 120 ml 80 ml Balance 120 ml 120 ml 80 ml Intake Oral 120 ml 120 ml 80 ml # Voids 1 1 6 1 # Bowel Movements 0 0 0 Result Diagram: 09/19/1670409/19/16704 Objective Remarks GENERAL: Well-developed, well-nourished, in no acute distress. alert HEENT: Head is normocephalic without any lesions or masses noted. Facial features are symmetric. Eyes: Extraocular muscles are intact. Conjunctivae were clear. NECK: Supple without any masses. Trachea midline no deviation. No JVD, CARDIAC: Regular rhythm, regular rate. S1/S2 are heard. No murmurs gallops or rubs. Obvious valve click LUNGS: Clear to auscultation bilaterally. No wheeze, rhonchi or rales. No use of accessory muscles on inspiration or expiration. ABDOMEN: Soft, nontender. Nondistended. Bowel sounds heard in all 4 quadrants. No organomegaly or masses. Negative rebound, negative guarding EXTREMITIES: No edema, pulses are equal bilaterally. No cyanosis or clubbing NEUROLOGY: Mood and affect appear appropriate. Cranial nerves II through XII grossly intact. Moving all extremities, speech is clear Procedures none Urinary Catheter: No Vascular Central Line Catheter: No A/P Assessment and Plan Dementia with behavioral disturbance -Continue Seroquel, Sertraline, Namenda, Aricept -Psychiatry follow-up appreciated; Dillon Act lifted; patient does not meet the criteria for admission to psych. -Patient currently stable. History of hypertension/dyslipidemia/aVR/CAD -Echocardiogram with AV prosthesis -Continue atenolol and Imdur with hold parameters. Clonidine and hydralazine as needed. -Lipitor restarted. -Continue Coumadin. INR goal 2.5-3.0. INR 2.2 today. Pharmacy dosing. Rectus sheath hematoma: Improving -CT abdomen/posterior left rectus sheath hematoma which is stable on repeat CT. -Evaluated by hematology. -Continue on coumadin and will monitor closely. Acute kidney injury: Resolved. -Avoid nephrotoxic drugs -Accurate I/Os -Monitor urine output Anemia/Thrombocytopenia/Coumadin use: -Evaluated by hematology -Received FFP and protamine along with pRBCs -Resumed coumadin -Monitor H/H periodically. Hemoglobin stable at 10.2. DVT PPx: SCDs, Coumadin. Discharge Planning Case management for discharge planning. Last documented activity is 09/14/16 which case management spoke with daughter and they are evaluating [place] for acceptance. Jeferson Beltran Sep 22, 2016 13:37
[2016-09-22] MEDS: WARFARIN SOD 2.5 MG TAB PO SCH (17:07)
[2016-09-22 20:00] VITALS: BP 129/69; PULSE 63; RESP 18; TEMP 97.8; O2SAT 96
[2016-09-22] MEDS: ATORVASTATIN 40 MG TAB PO SCH (20:26)
[2016-09-22] MEDS: DONEPEZIL HCL 5 MG TAB PO SCH (20:26)
[2016-09-23 06:04] LABS: INTERNATIONAL NORMALIZED RATIO 2.4 RATIO; PROTHROMBIN TIME - PATIENT 27.3 SEC (9.8-11.6)
[2016-09-23 08:00] VITALS: BP 112/87; PULSE 73; RESP 16; TEMP 98; O2SAT 95
[2016-09-23] MEDS: MEMANTINE HCL 10 MG TAB PO SCH ×2 (09:17→20:55)
[2016-09-23] MEDS: QUEtiapine FUMARATE 25 MG TAB PO SCH ×2 (09:17→20:55)
[2016-09-23] MEDS: ISOSORBIDE MONONITRATE 60 MG TAB PO SCH (09:17)
[2016-09-23] MEDS: DOCUSATE SODIUM 100 MG CAP PO SCH ×2 (09:17→20:55)
[2016-09-23] MEDS: SERTRALINE HCL 50 MG TAB PO SCH (09:17)
[2016-09-23] MEDS: ATENOLOL 25 MG TAB PO SCH (09:17)
--- NOTE | 2016-09-23 09:46 | HHI.PR ---
Subjective Remarks Patient seen and examined today. Patient denies any new complaints. Patient was walking the halls and asking for her Objective Vitals Vital Signs Date Time Temp Pulse Resp B/P Pulse Ox O2 Delivery O2 Flow Rate FiO2 09/23/16 08:00 98.0 73 16 112/87 95 09/22/16 20:00 97.8 63 18 129/69 96 I/O 09/22/16 09/22/16 09/22/16 09/23/16 09/23/16 09/23/16 07:00 15:00 23:00 07:00 15:00 23:00 Intake Total 80 ml 240 ml 360 ml 120 ml Balance 80 ml 240 ml 360 ml 120 ml Intake Oral 80 ml 240 ml 360 ml 120 ml # Voids 1 2 1 1 # Bowel Movements 0 0 0 0 Result Diagram: 09/19/1670409/19/16704 Objective Remarks GENERAL: Well-developed, well-nourished, in no acute distress. alert HEENT: Head is normocephalic without any lesions or masses noted. Facial features are symmetric. Eyes: Extraocular muscles are intact. Conjunctivae were clear. NECK: Supple without any masses. Trachea midline no deviation. No JVD, CARDIAC: Regular rhythm, regular rate. S1/S2 are heard. No murmurs gallops or rubs. Obvious valve click LUNGS: Clear to auscultation bilaterally. No wheeze, rhonchi or rales. No use of accessory muscles on inspiration or expiration. ABDOMEN: Soft, nontender. Nondistended. Bowel sounds heard in all 4 quadrants. No organomegaly or masses. Negative rebound, negative guarding EXTREMITIES: No edema, pulses are equal bilaterally. No cyanosis or clubbing NEUROLOGY: Mood and affect appear appropriate. Cranial nerves II through XII grossly intact. Moving all extremities, speech is clear Procedures none Urinary Catheter: No Vascular Central Line Catheter: No A/P Assessment and Plan Dementia with behavioral disturbance -Continue Seroquel, Sertraline, Namenda, Aricept -Psychiatry follow-up appreciated; [place]ana Act lifted; patient does not meet the criteria for admission to psych. -Patient currently stable. History of hypertension/dyslipidemia/aVR/CAD -Echocardiogram with AV prosthesis -Continue atenolol and Imdur with hold parameters. Clonidine and hydralazine as needed. -Lipitor restarted. -Continue Coumadin. INR goal 2.5-3.0. INR 2.4 today. Pharmacy dosing. Rectus sheath hematoma: Improving -CT abdomen/posterior left rectus sheath hematoma which is stable on repeat CT. -Evaluated by hematology. -Continue on coumadin and will monitor closely. Acute kidney injury: Resolved. -Avoid nephrotoxic drugs -Accurate I/Os -Monitor urine output Anemia/Thrombocytopenia/Coumadin use: -Evaluated by hematology -Received FFP and protamine along with pRBCs -Resumed coumadin -Monitor H/H periodically. Hemoglobin stable at 10.2. DVT PPx: SCDs, Coumadin. Discharge Planning Case management for discharge planning. Last documented activity is 09/14/16 which case management spoke with daughter and they are evaluating [facility] for acceptance. Jeferson Beltran Sep 23, 2016 09:46
[2016-09-23] MEDS: WARFARIN SOD 2.5 MG TAB PO SCH (16:46)
[2016-09-23 19:15] VITALS: BP 133/74; PULSE 69; RESP 16; TEMP 99.8; O2SAT 95
[2016-09-23] MEDS: DONEPEZIL HCL 5 MG TAB PO SCH (20:54)
[2016-09-23] MEDS: ATORVASTATIN 40 MG TAB PO SCH (20:58)
[2016-09-24 07:02] LABS: INTERNATIONAL NORMALIZED RATIO 2.2 RATIO
[2016-09-24 08:00] VITALS: BP 154/74; PULSE 68; RESP 16; TEMP 97; O2SAT 97
[2016-09-24] MEDS: SERTRALINE HCL 50 MG TAB PO SCH (08:36)
[2016-09-24] MEDS: ATENOLOL 25 MG TAB PO SCH (08:36)
[2016-09-24] MEDS: QUEtiapine FUMARATE 25 MG TAB PO SCH ×2 (08:36→20:42)
[2016-09-24] MEDS: DOCUSATE SODIUM 100 MG CAP PO SCH ×2 (08:36→20:42)
[2016-09-24] MEDS: MEMANTINE HCL 10 MG TAB PO SCH ×2 (08:36→20:41)
[2016-09-24] MEDS: ISOSORBIDE MONONITRATE 60 MG TAB PO SCH (08:36)
--- NOTE | 2016-09-24 11:30 | HHI.PR ---
Subjective Remarks Patient seen and examined today. Patient denies any new complaints. No change in clinical status. Objective Vitals Vital Signs Date Time Temp Pulse Resp B/P Pulse Ox O2 Delivery O2 Flow Rate FiO2 09/23/16 19:15 99.8 69 16 133/74 95 I/O 09/23/16 09/23/16 09/23/16 09/24/16 09/24/16 09/24/16 07:00 15:00 23:00 07:00 15:00 23:00 Intake Total 120 ml 240 ml 240 ml 220 ml Balance 120 ml 240 ml 240 ml 220 ml Intake Oral 120 ml 240 ml 240 ml 220 ml # Voids 1 2 1 1 # Bowel Movements 0 0 0 Objective Remarks GENERAL: Well-developed, well-nourished, in no acute distress. alert HEENT: Head is normocephalic without any lesions or masses noted. Facial features are symmetric. Eyes: Extraocular muscles are intact. Conjunctivae were clear. NECK: Supple without any masses. Trachea midline no deviation. No JVD, CARDIAC: Regular rhythm, regular rate. S1/S2 are heard. No murmurs gallops or rubs. Obvious valve click LUNGS: Clear to auscultation bilaterally. No wheeze, rhonchi or rales. No use of accessory muscles on inspiration or expiration. ABDOMEN: Soft, nontender. Nondistended. Bowel sounds heard in all 4 quadrants. No organomegaly or masses. Negative rebound, negative guarding EXTREMITIES: No edema, pulses are equal bilaterally. No cyanosis or clubbing NEUROLOGY: Mood and affect appear appropriate. Cranial nerves II through XII grossly intact. Moving all extremities, speech is clear Procedures none Urinary Catheter: No Vascular Central Line Catheter: No A/P Assessment and Plan Dementia with behavioral disturbance -Continue Seroquel, Sertraline, Namenda, Aricept -Psychiatry follow-up appreciated; [place] Act lifted; patient does not meet the criteria for admission to psych. -Patient currently stable. History of hypertension/dyslipidemia/aVR/CAD -Echocardiogram with AV prosthesis -Continue atenolol and Imdur with hold parameters. Clonidine and hydralazine as needed. -Lipitor restarted. -Continue Coumadin. INR goal 2.5-3.0. INR 2.4 today. Pharmacy dosing. Rectus sheath hematoma: Improving -CT abdomen/posterior left rectus sheath hematoma which is stable on repeat CT. -Evaluated by hematology. -Continue on coumadin and will monitor closely. Acute kidney injury: Resolved. -Avoid nephrotoxic drugs -Accurate I/Os -Monitor urine output Anemia/Thrombocytopenia/Coumadin use: -Evaluated by hematology -Received FFP and protamine along with pRBCs -Resumed coumadin -Monitor H/H periodically. Hemoglobin stable at 10.2. DVT PPx: SCDs, Coumadin. Discharge Planning Case management for discharge planning. Last documented activity is 09/14/16 which case management spoke with daughter and they are evaluating [facility] for acceptance. Jeferson Beltran Sep 24, 2016 11:30
[2016-09-24] MEDS: WARFARIN SOD 2.5 MG TAB PO SCH (16:53)
[2016-09-24 20:00] VITALS: BP 170/82; PULSE 72; RESP 18; TEMP 98; O2SAT 97
[2016-09-24] MEDS: ATORVASTATIN 40 MG TAB PO SCH (20:42)
[2016-09-24] MEDS: DONEPEZIL HCL 5 MG TAB PO SCH (20:42)
[2016-09-25 06:32] LABS: INTERNATIONAL NORMALIZED RATIO 2.3 RATIO; PROTHROMBIN TIME - PATIENT 26.8 SEC (9.8-11.6)
[2016-09-25] MEDS: ATENOLOL 25 MG TAB PO SCH (07:58)
[2016-09-25] MEDS: DOCUSATE SODIUM 100 MG CAP PO SCH ×2 (07:58→21:22)
[2016-09-25] MEDS: QUEtiapine FUMARATE 25 MG TAB PO SCH ×2 (07:58→21:22)
[2016-09-25] MEDS: ISOSORBIDE MONONITRATE 60 MG TAB PO SCH (07:58)
[2016-09-25] MEDS: SERTRALINE HCL 50 MG TAB PO SCH (07:58)
[2016-09-25] MEDS: MEMANTINE HCL 10 MG TAB PO SCH ×2 (07:58→21:22)
[2016-09-25 08:00] VITALS: BP 106/77; PULSE 79; RESP 16; TEMP 96.6; O2SAT 98
--- NOTE | 2016-09-25 13:08 | HHI.PR ---
Subjective Remarks Follow-up for dementia. Patient denies any pain. Objective Vitals Vital Signs Date Time Temp Pulse Resp B/P Pulse Ox O2 Delivery O2 Flow Rate FiO2 09/25/16 08:00 96.6 79 16 106/77 98 09/24/16 20:00 98.0 72 18 170/82 97 I/O 09/24/16 09/24/16 09/24/16 09/25/16 09/25/16 09/25/16 07:00 15:00 23:00 07:00 15:00 23:00 Intake Total 220 ml 840 ml 120 ml Balance 220 ml 840 ml 120 ml Intake Oral 220 ml 840 ml 120 ml # Voids 1 4 1 # Bowel Movements 0 0 Objective Remarks GENERAL: Well-developed, well-nourished patient in no apparent distress. CARDIOVASCULAR: Regular rate and rhythm. RESPIRATORY: No accessory muscle use. Clear to auscultation. Breath sounds equal bilaterally. GASTROINTESTINAL: Abdomen soft, nontender, nondistended. NEUROLOGICAL: Awake and alert. Normal speech. PSYCHIATRIC: Patient is in a happy mood. Normal affect. Appropriate. Procedures none Urinary Catheter: No Vascular Central Line Catheter: No A/P Problem List: (1) Dementia with behavioral disturbance ICD Code: F03.91 Status: Chronic (2) HTN (hypertension) ICD Code: I10 Status: Chronic (3) CAD (coronary artery disease) ICD Code: I25.10 Status: Chronic (4) Rectus sheath hematoma ICD Code: S30.1XXA Status: Acute (5) ALIYAH (acute kidney injury) ICD Code: N17.9 Status: Acute Assessment and Plan Dementia with behavioral disturbance -Continue Seroquel, Sertraline, Namenda, Aricept -Psychiatry follow-up appreciated; [place] Act lifted; patient does not meet the criteria for admission to psych. -Patient currently stable. History of hypertension/dyslipidemia/aVR/CAD -Echocardiogram with AV prosthesis -Continue atenolol and Imdur with hold parameters. Clonidine and hydralazine as needed. -Lipitor restarted. -Continue Coumadin. INR goal 2.5-3.0. INR 2.3 today. Pharmacy dosing. Rectus sheath hematoma: Improving -CT abdomen/posterior left rectus sheath hematoma which is stable on repeat CT. -Evaluated by hematology. -Resumed coumadin and will monitor closely. Acute kidney injury: Resolved. -Avoid nephrotoxic drugs -Accurate I/Os -Monitor urine output Anemia/Thrombocytopenia/Coumadin use: -Evaluated by hematology -Received FFP and protamine along with pRBCs -Resumed coumadin -Monitor H/H periodically. Hemoglobin stable. Gram-negative yahaira UTI: treated Hypernatremia: Resolved. Hypokalemia: Resolved. -Monitor periodically and replete as needed. PT evaluate and treat GI PPx: Protonix DVT PPx: SCDs, Coumadin. Discharge Planning CM following evaluating facilities with dementia units. Bebe Stinson Sep 25, 2016 13:08
[2016-09-25] MEDS: WARFARIN SOD 2.5 MG TAB PO SCH (16:29)
[2016-09-25 20:00] VITALS: BP 143/75; PULSE 71; RESP 16; TEMP 98.8; O2SAT 98
[2016-09-25] MEDS: DONEPEZIL HCL 5 MG TAB PO SCH (21:22)
[2016-09-25] MEDS: ATORVASTATIN 40 MG TAB PO SCH (21:22)
[2016-09-26 07:50] LABS: INTERNATIONAL NORMALIZED RATIO 2.7 RATIO; PROTHROMBIN TIME - PATIENT 31.1 SEC (9.8-11.6)
[2016-09-26 08:00] VITALS: BP 120/79; PULSE 68; RESP 16; TEMP 98.1; O2SAT 97
[2016-09-26] MEDS: ATENOLOL 25 MG TAB PO SCH (08:07)
[2016-09-26] MEDS: QUEtiapine FUMARATE 25 MG TAB PO SCH ×2 (08:07→20:25)
[2016-09-26] MEDS: ISOSORBIDE MONONITRATE 60 MG TAB PO SCH (08:07)
[2016-09-26] MEDS: SERTRALINE HCL 50 MG TAB PO SCH (08:07)
[2016-09-26] MEDS: MEMANTINE HCL 10 MG TAB PO SCH ×2 (08:07→20:25)
[2016-09-26] MEDS: DOCUSATE SODIUM 100 MG CAP PO SCH ×2 (08:07→20:25)
--- NOTE | 2016-09-26 11:41 | HHI.PR ---
Subjective Remarks Follow-up on patient with dementia. Patient seen and examined. Video peel oven tender utilized to communicate with patient. Patient denies any complaints today and states she is feeling well. She has no complaints of chest pain shortness of breath or abdominal pain. Patient reports bowel movement yesterday. Objective Vitals Vital Signs Date Time Temp Pulse Resp B/P Pulse Ox O2 Delivery O2 Flow Rate FiO2 09/26/16 08:00 98.1 68 16 120/79 97 09/25/16 20:00 98.8 71 16 143/75 98 I/O 09/25/16 09/25/16 09/25/16 09/26/16 09/26/16 09/26/16 07:00 15:00 23:00 07:00 15:00 23:00 Intake Total 120 ml 720 ml 320 ml Balance 120 ml 720 ml 320 ml Intake Oral 120 ml 720 ml 320 ml # Voids 1 4 2 # Bowel Movements 0 0 0 Objective Remarks GENERAL: Well-developed, well-nourished patient in no apparent distress. CARDIOVASCULAR: Regular rate and rhythm. RESPIRATORY: No accessory muscle use. Clear to auscultation. Breath sounds equal bilaterally. GASTROINTESTINAL: Abdomen soft, nontender, nondistended. NEUROLOGICAL: Awake and alert. Normal speech. PSYCHIATRIC: Patient is in a happy mood. Normal affect. Appropriate. Procedures none Urinary Catheter: No Vascular Central Line Catheter: No Procedures none Medications and IVs Current Medications Medications (Trade) Dose Ordered Sig/Mauricio Route Start Time Stop Time Status Last Admin (Tylenol) 650 mg Q6H PRN PO 08/27/16 10:30 (Colace) 100 mg BID PO 08/27/16 21:00 09/26/16 08:07 (SEROquel) 25 mg BID PO 08/27/16 21:00 09/26/16 08:07 (Aricept) 10 mg HS PO 08/27/16 21:00 09/25/16 21:22 (Namenda) 10 mg BID PO 08/27/16 21:00 09/26/16 08:07 (Zoloft) 25 mg DAILY PO 08/28/16 09:00 09/26/16 08:07 (Lipitor) 40 mg HS PO 08/30/16 21:00 09/25/16 21:22 (Imdur) 60 mg DAILY PO 08/31/16 09:00 09/26/16 08:07 (Pill Splitter) 1 ea UNSCH PRN OTHER 08/30/16 12:00 09/05/16 12:40 Atenolol 25 mg 25 mg DAILY PO 09/06/16 09:00 09/26/16 08:07 (Coumadin Consult Pharmacy) 0 ml @ 0 mls/hr UNSCH OTHER 09/08/16 10:30 (Coumadin) 2.5 mg DAILY@1600 PO 09/11/16 16:00 09/25/16 16:29 (Zofran Odt) 4 mg Q6H PRN PO 09/18/16 15:15 A/P Problem List: (1) Dementia with behavioral disturbance ICD Code: F03.91 Status: Chronic (2) HTN (hypertension) ICD Code: I10 Status: Chronic (3) CAD (coronary artery disease) ICD Code: I25.10 Status: Chronic (4) Rectus sheath hematoma ICD Code: S30.1XXA Status: Acute (5) ALIYAH (acute kidney injury) ICD Code: N17.9 Status: Acute Assessment and Plan Dementia with behavioral disturbance -Continue Seroquel, Sertraline, Namenda, Aricept -Psychiatry follow-up appreciated; [place] Act lifted; patient does not meet the criteria for admission to psych. -Patient currently stable. History of hypertension/dyslipidemia/aVR/CAD -Echocardiogram with AV prosthesis -Continue atenolol and Imdur with hold parameters. Clonidine and hydralazine as needed. -Lipitor restarted. -Continue Coumadin. INR goal 2.5-3.0. INR 2.7 today. Pharmacy dosing. Rectus sheath hematoma: Improving -CT abdomen/posterior left rectus sheath hematoma which is stable on repeat CT. -Evaluated by hematology. -Resumed coumadin and will monitor closely. Acute kidney injury: Resolved. -Avoid nephrotoxic drugs -Accurate I/Os -Monitor urine output Anemia/Thrombocytopenia/Coumadin use: -Evaluated by hematology -Received FFP and protamine along with pRBCs -Resumed coumadin -Monitor H/H periodically. Hemoglobin stable. Gram-negative yahaira UTI: treated Hypernatremia: Resolved. Hypokalemia: Resolved. -Monitor periodically and replete as needed. PT evaluate and treat GI PPx: Protonix DVT PPx: SCDs, Coumadin. Discharge Planning CM following evaluating facilities with dementia units. Per case management note today, healthcare change requested to initiate [facility] for placement. Jackeline Pappas Sep 26, 2016 11:41
[2016-09-26] MEDS: WARFARIN SOD 2.5 MG TAB PO SCH (18:27)
[2016-09-26 20:00] VITALS: BP 146/72; PULSE 66; RESP 21; TEMP 96.7; O2SAT 97
[2016-09-26] MEDS: DONEPEZIL HCL 5 MG TAB PO SCH (20:25)
[2016-09-26] MEDS: ATORVASTATIN 40 MG TAB PO SCH (20:25)
[2016-09-27 06:41] LABS: INTERNATIONAL NORMALIZED RATIO 2.8 RATIO
[2016-09-27] MEDS: QUEtiapine FUMARATE 25 MG TAB PO SCH ×2 (07:57→20:44)
[2016-09-27] MEDS: ISOSORBIDE MONONITRATE 60 MG TAB PO SCH (07:58)
[2016-09-27] MEDS: ATENOLOL 25 MG TAB PO SCH (07:58)
[2016-09-27] MEDS: DOCUSATE SODIUM 100 MG CAP PO SCH ×2 (07:58→20:44)
[2016-09-27] MEDS: MEMANTINE HCL 10 MG TAB PO SCH ×2 (07:58→20:43)
[2016-09-27] MEDS: SERTRALINE HCL 50 MG TAB PO SCH (07:58)
[2016-09-27 08:00] VITALS: BP 142/74; PULSE 64; RESP 16; TEMP 98.2; O2SAT 97
--- NOTE | 2016-09-27 17:54 | HHI.PR ---
Subjective Remarks Patient seen and examined. Denies any complaints of pain. No acute medical issues at this time. No change in clinical status. Objective Vitals Vital Signs Date Time Temp Pulse Resp B/P Pulse Ox O2 Delivery O2 Flow Rate FiO2 09/27/16 08:00 98.2 64 16 142/74 97 09/26/16 20:00 96.7 66 21 146/72 97 I/O 09/26/16 09/26/16 09/26/16 09/27/16 09/27/16 09/27/16 07:00 15:00 23:00 07:00 15:00 23:00 Intake Total 320 ml 120 ml 360 ml Balance 320 ml 120 ml 360 ml Intake Oral 320 ml 120 ml 360 ml # Voids 2 3 1 1 2 # Bowel Movements 0 0 Objective Remarks GENERAL: Well-developed, well-nourished patient in no apparent distress. CARDIOVASCULAR: Regular rate and rhythm. RESPIRATORY: No accessory muscle use. Clear to auscultation. Breath sounds equal bilaterally. GASTROINTESTINAL: Abdomen soft, nontender, nondistended. NEUROLOGICAL: Awake and alert. Normal speech. PSYCHIATRIC: Patient is in a happy mood. Normal affect. Appropriate. Procedures none Urinary Catheter: No Vascular Central Line Catheter: No Procedures none Medications and IVs Current Medications Medications (Trade) Dose Ordered Sig/Mauricio Route Start Time Stop Time Status Last Admin (Tylenol) 650 mg Q6H PRN PO 08/27/16 10:30 (Colace) 100 mg BID PO 08/27/16 21:00 09/27/16 07:58 (SEROquel) 25 mg BID PO 08/27/16 21:00 09/27/16 07:57 (Aricept) 10 mg HS PO 08/27/16 21:00 09/26/16 20:25 (Namenda) 10 mg BID PO 08/27/16 21:00 09/27/16 07:58 (Zoloft) 25 mg DAILY PO 08/28/16 09:00 09/27/16 07:58 (Lipitor) 40 mg HS PO 08/30/16 21:00 09/26/16 20:25 (Imdur) 60 mg DAILY PO 08/31/16 09:00 09/27/16 07:58 (Pill Splitter) 1 ea UNSCH PRN OTHER 08/30/16 12:00 09/05/16 12:40 Atenolol 25 mg 25 mg DAILY PO 09/06/16 09:00 09/27/16 07:58 (Coumadin Consult Pharmacy) 0 ml @ 0 mls/hr UNSCH OTHER 09/08/16 10:30 (Coumadin) 2.5 mg DAILY@1600 PO 09/11/16 16:00 09/26/16 18:27 (Zofran Odt) 4 mg Q6H PRN PO 09/18/16 15:15 A/P Problem List: (1) Dementia with behavioral disturbance ICD Code: F03.91 Status: Chronic (2) HTN (hypertension) ICD Code: I10 Status: Chronic (3) CAD (coronary artery disease) ICD Code: I25.10 Status: Chronic (4) Rectus sheath hematoma ICD Code: S30.1XXA Status: Acute (5) ALIYAH (acute kidney injury) ICD Code: N17.9 Status: Acute Assessment and Plan Dementia with behavioral disturbance -Continue Seroquel, Sertraline, Namenda, Aricept -Psychiatry follow-up appreciated; [place] Act lifted; patient does not meet the criteria for admission to psych. -Patient remains stable. History of hypertension/dyslipidemia/aVR/CAD -BP with good control -Echocardiogram with AV prosthesis -Continue atenolol and Imdur with hold parameters. Clonidine and hydralazine as needed. -Lipitor restarted. -Continue Coumadin. INR goal 2.5-3.0. INR 2.8 today. Pharmacy dosing. Rectus sheath hematoma: Improving -CT abdomen/posterior left rectus sheath hematoma which is stable on repeat CT. -Evaluated by hematology. -Resumed coumadin and will monitor closely. Acute kidney injury: Resolved. -Avoid nephrotoxic drugs -Accurate I/Os -Monitor urine output Anemia/Thrombocytopenia/Coumadin use: -Evaluated by hematology -Received FFP and protamine along with pRBCs -Resumed coumadin -Monitor H/H periodically. Hemoglobin stable. Gram-negative yahaira UTI: treated Hypernatremia: Resolved. Hypokalemia: Resolved. -Monitor periodically and replete as needed. PT: Ambulated 450 feet but with increased sway on ambulation after first 100'. Continue participation. GI PPx: Protonix DVT PPx: SCDs, Coumadin. Discharge Planning CM following evaluating facilities with dementia units. Per case management note today, healthcare change requested to initiate [facility] for placement. Attending Statement Patient seen. Agree with above. Jackeline Pappas Sep 27, 2016 17:54 Jeferson Dodge MD Sep 28, 2016 07:18
[2016-09-27] MEDS: WARFARIN SOD 2.5 MG TAB PO SCH (18:06)
[2016-09-27 20:00] VITALS: BP 121/60; PULSE 71; RESP 20; TEMP 98.5; O2SAT 95
[2016-09-27] MEDS: ATORVASTATIN 40 MG TAB PO SCH (20:44)
[2016-09-27] MEDS: DONEPEZIL HCL 5 MG TAB PO SCH (20:44)
[2016-09-28 06:56] LABS: INTERNATIONAL NORMALIZED RATIO 2.4 RATIO
[2016-09-28 08:00] VITALS: BP 133/75; PULSE 64; RESP 16; TEMP 97.7; O2SAT 99
[2016-09-28] MEDS: ATENOLOL 25 MG TAB PO SCH (09:11)
[2016-09-28] MEDS: ISOSORBIDE MONONITRATE 60 MG TAB PO SCH (09:11)
[2016-09-28] MEDS: SERTRALINE HCL 50 MG TAB PO SCH (09:11)
[2016-09-28] MEDS: DOCUSATE SODIUM 100 MG CAP PO SCH ×2 (09:11→20:48)
[2016-09-28] MEDS: QUEtiapine FUMARATE 25 MG TAB PO SCH ×2 (09:11→20:48)
[2016-09-28] MEDS: MEMANTINE HCL 10 MG TAB PO SCH ×2 (09:11→20:48)
--- NOTE | 2016-09-28 13:47 | HHI.PR ---
Subjective Remarks Follow-up of patient with dementia. Patient seen and examined today. Video ship harbor pilot utilized to communicate with patient. Patient's only complaint today is that she wants to go home - she does not know where she is her or why she is here. She denies any complaints of chest pain shortness of breath or abdominal pain. No change patient's current clinical status. Objective Vitals Vital Signs Date Time Temp Pulse Resp B/P Pulse Ox O2 Delivery O2 Flow Rate FiO2 09/28/16 08:00 97.7 64 16 133/75 99 09/27/16 20:00 98.5 71 20 121/60 95 I/O 09/27/16 09/27/16 09/27/16 09/28/16 09/28/16 09/28/16 07:00 15:00 23:00 07:00 15:00 23:00 Intake Total 360 ml 240 ml 120 ml 0 ml Balance 360 ml 240 ml 120 ml 0 ml Intake Oral 360 ml 240 ml 120 ml IV Total 0 ml # Voids 1 2 1 1 # Bowel Movements 0 0 0 Objective Remarks GENERAL: Well-developed, well-nourished patient in no apparent distress. Lying in hospital bed. Awake. CARDIOVASCULAR: Regular rate and rhythm. RESPIRATORY: No accessory muscle use. Clear to auscultation. Breath sounds equal bilaterally. GASTROINTESTINAL: Abdomen soft, nontender, nondistended. NEUROLOGICAL: Awake and alert. Normal speech. PSYCHIATRIC: Patient is in a happy mood. Normal affect. Appropriate. Procedures none Urinary Catheter: No Vascular Central Line Catheter: No Procedures none Medications and IVs Current Medications Medications (Trade) Dose Ordered Sig/[facility] Route Start Time Stop Time Status Last Admin (Tylenol) 650 mg Q6H PRN PO 08/27/16 10:30 (Colace) 100 mg BID PO 08/27/16 21:00 09/28/16 09:11 (SEROquel) 25 mg BID PO 08/27/16 21:00 09/28/16 09:11 (Aricept) 10 mg HS PO 08/27/16 21:00 09/27/16 20:44 (Namenda) 10 mg BID PO 08/27/16 21:00 09/28/16 09:11 (Zoloft) 25 mg DAILY PO 08/28/16 09:00 09/28/16 09:11 (Lipitor) 40 mg HS PO 08/30/16 21:00 09/27/16 20:44 (Imdur) 60 mg DAILY PO 08/31/16 09:00 09/28/16 09:11 (Pill Splitter) 1 ea UNSCH PRN OTHER 08/30/16 12:00 09/05/16 12:40 Atenolol 25 mg 25 mg DAILY PO 09/06/16 09:00 09/28/16 09:11 (Coumadin Consult Pharmacy) 0 ml @ 0 mls/hr UNSCH OTHER 09/08/16 10:30 (Coumadin) 2.5 mg DAILY@1600 PO 09/11/16 16:00 09/27/16 18:06 (Zofran Odt) 4 mg Q6H PRN PO 09/18/16 15:15 A/P Problem List: (1) Dementia with behavioral disturbance ICD Code: F03.91 Status: Chronic (2) HTN (hypertension) ICD Code: I10 Status: Chronic (3) CAD (coronary artery disease) ICD Code: I25.10 Status: Chronic (4) Rectus sheath hematoma ICD Code: S30.1XXA Status: Acute (5) ALIYAH (acute kidney injury) ICD Code: N17.9 Status: Acute Assessment and Plan Dementia with behavioral disturbance, stable -Continue Seroquel, Sertraline, Namenda, Aricept -Psychiatry follow-up appreciated; [place] Act lifted; patient does not meet the criteria for admission to psych. -Patient remains stable. History of hypertension/dyslipidemia/aVR/CAD -BP with good control -Echocardiogram with AV prosthesis -Continue atenolol and Imdur with hold parameters. Clonidine and hydralazine as needed. -Lipitor restarted. -Continue Coumadin. INR goal 2.5-3.0. INR 2.4 today. Pharmacy dosing. Rectus sheath hematoma: Improving -CT abdomen/posterior left rectus sheath hematoma which is stable on repeat CT. -Evaluated by hematology. -Resumed coumadin and will monitor closely. Acute kidney injury: Resolved. -Avoid nephrotoxic drugs -Accurate I/Os -Monitor urine output Anemia/Thrombocytopenia/Coumadin use: -Evaluated by hematology -Received FFP and protamine along with pRBCs -Resumed coumadin -Monitor H/H periodically. Hemoglobin stable. Gram-negative yahaira UTI: treated Hypernatremia: Resolved. Hypokalemia: Resolved. -Monitor periodically and replete as needed. PT: Ambulated 450 feet but with increased sway on ambulation after first 100' per PTs note dated yesterday. Continue participation. GI PPx: Protonix DVT PPx: SCDs, Coumadin. Discharge Planning CM following evaluating facilities with dementia units. Per case management note today, healthcare change requested to initiate [facility] for placement. Attending Statement Patient seen. Agree with above. Jackeline Pappas Sep 28, 2016 13:47 Jeferson Dodge MD Sep 28, 2016 18:53
[2016-09-28] MEDS: WARFARIN SOD 2.5 MG TAB PO SCH (16:31)
[2016-09-28 20:00] VITALS: BP 142/76; PULSE 67; RESP 17; TEMP 98.2; O2SAT 97
[2016-09-28] MEDS: ATORVASTATIN 40 MG TAB PO SCH (20:48)
[2016-09-28] MEDS: DONEPEZIL HCL 5 MG TAB PO SCH (20:48)
[2016-09-29 07:15] VITALS: BP 143/85; PULSE 73; RESP 20; TEMP 98; O2SAT 97
[2016-09-29] MEDS: ATENOLOL 25 MG TAB PO SCH (09:01)
[2016-09-29] MEDS: DOCUSATE SODIUM 100 MG CAP PO SCH ×2 (09:01→20:30)
[2016-09-29] MEDS: QUEtiapine FUMARATE 25 MG TAB PO SCH ×2 (09:01→20:29)
[2016-09-29] MEDS: ISOSORBIDE MONONITRATE 60 MG TAB PO SCH (09:01)
[2016-09-29] MEDS: SERTRALINE HCL 50 MG TAB PO SCH (09:01)
[2016-09-29] MEDS: MEMANTINE HCL 10 MG TAB PO SCH ×2 (09:01→20:30)
--- NOTE | 2016-09-29 12:34 | HHI.PR ---
Subjective Remarks Follow-up on patient with dementia. Utilized video retail management trainee service to communicate with patient in the room. Patient remains pleasantly confused. No change in current clinical status. She denies any complaints of chest pain and abdominal pain or shortness of breath. Repeats that she wants to go home. Objective Vitals Vital Signs Date Time Temp Pulse Resp B/P Pulse Ox O2 Delivery O2 Flow Rate FiO2 09/29/16 07:15 98.0 73 20 143/85 97 09/28/16 20:00 98.2 67 17 142/76 97 I/O 09/28/16 09/28/16 09/28/16 09/29/16 09/29/16 09/29/16 07:00 15:00 23:00 07:00 15:00 23:00 Intake Total 120 ml 240 ml 240 ml 220 ml Balance 120 ml 240 ml 240 ml 220 ml Intake Oral 120 ml 240 ml 240 ml 220 ml IV Total 0 ml 0 ml 0 ml # Voids 1 3 1 1 # Bowel Movements 0 0 0 0 Objective Remarks GENERAL: Well-developed, well-nourished patient in no apparent distress. Lying in hospital bed. Asleep but easily arousable. CARDIOVASCULAR: Regular rate and rhythm. RESPIRATORY: No accessory muscle use. Clear to auscultation. Breath sounds equal bilaterally. GASTROINTESTINAL: Abdomen soft, nontender, nondistended. NEUROLOGICAL: Awake and alert. Normal speech. PSYCHIATRIC: Patient is in a happy mood. Normal affect. Appropriate. Procedures none Urinary Catheter: No Vascular Central Line Catheter: No Procedures none Medications and IVs Current Medications Medications (Trade) Dose Ordered Sig/[facility] Route Start Time Stop Time Status Last Admin (Tylenol) 650 mg Q6H PRN PO 08/27/16 10:30 (Colace) 100 mg BID PO 08/27/16 21:00 09/29/16 09:01 (SEROquel) 25 mg BID PO 08/27/16 21:00 09/29/16 09:01 (Aricept) 10 mg HS PO 08/27/16 21:00 09/28/16 20:48 (Namenda) 10 mg BID PO 08/27/16 21:00 09/29/16 09:01 (Zoloft) 25 mg DAILY PO 08/28/16 09:00 09/29/16 09:01 (Lipitor) 40 mg HS PO 08/30/16 21:00 09/28/16 20:48 (Imdur) 60 mg DAILY PO 08/31/16 09:00 09/29/16 09:01 (Pill Splitter) 1 ea UNSCH PRN OTHER 08/30/16 12:00 09/05/16 12:40 Atenolol 25 mg 25 mg DAILY PO 09/06/16 09:00 09/29/16 09:01 (Coumadin Consult Pharmacy) 0 ml @ 0 mls/hr UNSCH OTHER 09/08/16 10:30 (Coumadin) 2.5 mg DAILY@1600 PO 09/11/16 16:00 09/28/16 16:31 (Zofran Odt) 4 mg Q6H PRN PO 09/18/16 15:15 A/P Problem List: (1) Dementia with behavioral disturbance ICD Code: F03.91 Status: Chronic (2) HTN (hypertension) ICD Code: I10 Status: Chronic (3) CAD (coronary artery disease) ICD Code: I25.10 Status: Chronic (4) Rectus sheath hematoma ICD Code: S30.1XXA Status: Acute (5) ALIYAH (acute kidney injury) ICD Code: N17.9 Status: Acute Assessment and Plan Dementia with behavioral disturbance, stable -Continue Seroquel, Sertraline, Namenda, Aricept -Psychiatry follow-up appreciated; Dillon Act lifted; patient does not meet the criteria for admission to psych. -Patient remains stable. No change. History of hypertension/dyslipidemia/aVR/CAD -BP with adequate control -Echocardiogram with AV prosthesis -Continue atenolol and Imdur with hold parameters. Clonidine and hydralazine as needed. -Lipitor restarted. -Continue Coumadin. INR goal 2.5-3.0. INR 2.4 09/28/16. Pharmacy dosing. Rectus sheath hematoma: Improving -CT abdomen/posterior left rectus sheath hematoma which is stable on repeat CT. -Evaluated by hematology. -Resumed coumadin and will monitor closely. No evidence of acute bleed. Acute kidney injury: Resolved. -Avoid nephrotoxic drugs -Accurate I/Os -Monitor urine output Anemia/Thrombocytopenia/Coumadin use: -Evaluated by hematology -Received FFP and protamine along with pRBCs -Resumed coumadin -Monitor H/H periodically. Hemoglobin stable. Gram-negative yahaira UTI: treated Hypernatremia: Resolved. Hypokalemia: Resolved. -Monitor periodically and replete as needed. PT: Ambulated 200 feet unaided and 200 feet with frontwheel walker. Continue with participation GI PPx: Protonix DVT PPx: SCDs, Coumadin. Discharge Planning CM following evaluating facilities with dementia units. Per last case management note, healthcare change requested to initiate [facility] Medicaid for placement. Attending Statement Patient seen. Agree with above. Jackeline Pappas Sep 29, 2016 12:34 Jeferson Dodge MD Sep 29, 2016 12:43
[2016-09-29] MEDS: WARFARIN SOD 2.5 MG TAB PO SCH (14:51)
[2016-09-29 20:00] VITALS: BP 138/77; PULSE 70; RESP 19; TEMP 98; O2SAT 99
[2016-09-29] MEDS: DONEPEZIL HCL 5 MG TAB PO SCH (20:29)
[2016-09-29] MEDS: ATORVASTATIN 40 MG TAB PO SCH (20:30)
[2016-09-30 07:58] VITALS: BP 116/77; PULSE 95; RESP 20; TEMP 98; O2SAT 96
[2016-09-30 08:34] LABS: INTERNATIONAL NORMALIZED RATIO 1.9 RATIO; PROTHROMBIN TIME - PATIENT 21.4 SEC (9.8-11.6)
[2016-09-30] MEDS: MEMANTINE HCL 10 MG TAB PO SCH ×2 (09:00→20:39)
[2016-09-30] MEDS: SERTRALINE HCL 50 MG TAB PO SCH (10:00)
[2016-09-30] MEDS: ATENOLOL 25 MG TAB PO SCH (10:00)
[2016-09-30] MEDS: ISOSORBIDE MONONITRATE 60 MG TAB PO SCH (10:00)
[2016-09-30] MEDS: QUEtiapine FUMARATE 25 MG TAB PO SCH ×2 (10:00→20:38)
[2016-09-30] MEDS: DOCUSATE SODIUM 100 MG CAP PO SCH ×2 (10:00→20:38)
--- NOTE | 2016-09-30 15:22 | HHI.PR ---
Subjective Remarks Follow-up on patient with dementia. Patient seen and examined. Patient states she is feeling well and denies any complaints today. No chest pain or shortness of breath. Objective Vitals Vital Signs Date Time Temp Pulse Resp B/P Pulse Ox O2 Delivery O2 Flow Rate FiO2 09/30/16 07:58 98.0 95 20 116/77 96 09/29/16 20:00 98.0 70 19 138/77 99 I/O 09/29/16 09/29/16 09/29/16 09/30/16 09/30/16 09/30/16 07:00 15:00 23:00 07:00 15:00 23:00 Intake Total 220 ml 450 ml 120 ml 120 ml 580 ml Balance 220 ml 450 ml 120 ml 120 ml 580 ml Intake Oral 220 ml 450 ml 120 ml 120 ml 580 ml IV Total 0 ml # Voids 1 4 1 1 3 # Bowel Movements 0 0 0 Objective Remarks GENERAL: Well-developed, well-nourished patient in no apparent distress. Sitting up in bedside chair. CARDIOVASCULAR: Regular rate and rhythm. RESPIRATORY: No accessory muscle use. Clear to auscultation. Breath sounds equal bilaterally. GASTROINTESTINAL: Abdomen soft, nontender, nondistended. NEUROLOGICAL: Awake and alert. Normal speech. PSYCHIATRIC: Demented. Normal affect. Appropriate. Procedures none Urinary Catheter: No Vascular Central Line Catheter: No Procedures none Medications and IVs Current Medications Medications (Trade) Dose Ordered Sig/[facility] Route Start Time Stop Time Status Last Admin (Tylenol) 650 mg Q6H PRN PO 08/27/16 10:30 (Colace) 100 mg BID PO 08/27/16 21:00 09/30/16 10:00 (SEROquel) 25 mg BID PO 08/27/16 21:00 09/30/16 10:00 (Aricept) 10 mg HS PO 08/27/16 21:00 09/29/16 20:29 (Namenda) 10 mg BID PO 08/27/16 21:00 09/30/16 09:00 (Zoloft) 25 mg DAILY PO 08/28/16 09:00 09/30/16 10:00 (Lipitor) 40 mg HS PO 08/30/16 21:00 09/29/16 20:30 (Imdur) 60 mg DAILY PO 08/31/16 09:00 09/30/16 10:00 (Pill Splitter) 1 ea UNSCH PRN OTHER 08/30/16 12:00 09/05/16 12:40 Atenolol 25 mg 25 mg DAILY PO 09/06/16 09:00 09/30/16 10:00 (Coumadin Consult Pharmacy) 0 ml @ 0 mls/hr UNSCH OTHER 09/08/16 10:30 (Coumadin) 2.5 mg DAILY@1600 PO 09/11/16 16:00 09/29/16 14:51 (Zofran Odt) 4 mg Q6H PRN PO 09/18/16 15:15 A/P Problem List: (1) Dementia with behavioral disturbance ICD Code: F03.91 Status: Chronic (2) HTN (hypertension) ICD Code: I10 Status: Chronic (3) CAD (coronary artery disease) ICD Code: I25.10 Status: Chronic (4) Rectus sheath hematoma ICD Code: S30.1XXA Status: Acute (5) ALIYAH (acute kidney injury) ICD Code: N17.9 Status: Acute Assessment and Plan Dementia with behavioral disturbance, stable -Continue Seroquel, Sertraline, Namenda, Aricept -Psychiatry follow-up appreciated; [place] Act lifted; patient does not meet the criteria for admission to psych. -Patient remains stable. No change. History of hypertension/dyslipidemia/aVR/CAD -BP with adequate control -Echocardiogram with AV prosthesis -Continue atenolol and Imdur with hold parameters. Clonidine and hydralazine as needed. -Lipitor restarted. -Continue Coumadin. INR goal 2.5-3.0. INR 1.9 09/28/16. Pharmacy dosing. Rectus sheath hematoma: Improving -CT abdomen/posterior left rectus sheath hematoma which is stable on repeat CT. -Evaluated by hematology. -Resumed coumadin and will monitor closely. No evidence of acute bleed. Acute kidney injury: Resolved. -Avoid nephrotoxic drugs -Accurate I/Os -Monitor urine output Anemia/Thrombocytopenia/Coumadin use: -Evaluated by hematology -Received FFP and protamine along with pRBCs -Resumed coumadin -Monitor H/H periodically. Hemoglobin stable. Gram-negative yahaira UTI: treated Hypernatremia: Resolved. Hypokalemia: Resolved. -Monitor periodically and replete as needed. PT: Ambulated 200 feet unaided and 200 feet with frontwheel walker. Continue with participation. GI PPx: Protonix DVT PPx: SCDs, Coumadin. Discharge Planning CM following evaluating facilities with dementia units. Per last case management note, healthcare change requested to initiate [facility] Medicaid for placement. Attending Statement Patient seen. Agree with above. Jackeline Pappas Sep 30, 2016 15:21 Jeferson Dodge MD Sep 30, 2016 15:50
[2016-09-30] MEDS: WARFARIN SOD 2.5 MG TAB PO SCH (17:07)
[2016-09-30 20:00] VITALS: BP 120/72; PULSE 65; RESP 20; TEMP 98.2; O2SAT 97
[2016-09-30] MEDS: ATORVASTATIN 40 MG TAB PO SCH (20:38)
[2016-09-30] MEDS: DONEPEZIL HCL 5 MG TAB PO SCH (20:39)
[2016-10-01] MEDS: ISOSORBIDE MONONITRATE 60 MG TAB PO SCH (07:47)
[2016-10-01] MEDS: ATENOLOL 25 MG TAB PO SCH (07:47)
[2016-10-01] MEDS: SERTRALINE HCL 50 MG TAB PO SCH (07:47)
[2016-10-01] MEDS: QUEtiapine FUMARATE 25 MG TAB PO SCH ×2 (07:47→21:03)
[2016-10-01] MEDS: MEMANTINE HCL 10 MG TAB PO SCH ×2 (07:47→21:03)
[2016-10-01] MEDS: DOCUSATE SODIUM 100 MG CAP PO SCH ×2 (07:47→21:03)
[2016-10-01 08:00] VITALS: BP 138/72; PULSE 67; RESP 17; TEMP 97.3; O2SAT 97
--- NOTE | 2016-10-01 12:26 | HHI.PR ---
Subjective Remarks Follow-up on patient with dementia. Discussed with Lorrie HARDWICK - patient reported to her that she is able to make her own medical decisions and decide whether or not she needs to stay in the hospital and that her son should not be allowed to make those decisions for her. She feels as if she is being held here against her will. Video sales promotion manager service utilized to speak with patient in her [place] Slov[place] language. Patient denies any medical complaints including chest pain shortness of breath or abdominal pain. She is oriented to self only. Does state that she wants to go home and she lives not far from here. Objective Vitals Vital Signs Date Time Temp Pulse Resp B/P Pulse Ox O2 Delivery O2 Flow Rate FiO2 10/01/16 08:00 97.3 67 17 138/72 97 09/30/16 20:00 98.2 65 20 120/72 97 I/O 09/30/16 09/30/16 09/30/16 10/01/16 10/01/16 10/01/16 07:00 15:00 23:00 07:00 15:00 23:00 Intake Total 120 ml 580 ml 120 ml 120 ml 100 ml Balance 120 ml 580 ml 120 ml 120 ml 100 ml Intake Oral 120 ml 580 ml 120 ml 120 ml 100 ml # Voids 1 3 1 1 # Bowel Movements 0 Objective Remarks GENERAL: Well-developed, well-nourished patient in no apparent distress. Lying in hospital bed. Awake. CARDIOVASCULAR: Regular rate and rhythm. RESPIRATORY: No accessory muscle use. Clear to auscultation. Breath sounds equal bilaterally. GASTROINTESTINAL: Abdomen soft, nontender, nondistended. NEUROLOGICAL: Awake and alert. Normal speech. PSYCHIATRIC: Confused. Oriented to self only. Normal affect. Appropriate. Procedures none Urinary Catheter: No Vascular Central Line Catheter: No Procedures none Medications and IVs Current Medications Medications (Trade) Dose Ordered Sig/[facility] Route Start Time Stop Time Status Last Admin (Tylenol) 650 mg Q6H PRN PO 08/27/16 10:30 (Colace) 100 mg BID PO 08/27/16 21:00 10/01/16 07:47 (SEROquel) 25 mg BID PO 08/27/16 21:00 10/01/16 07:47 (Aricept) 10 mg HS PO 08/27/16 21:00 09/30/16 20:39 (Namenda) 10 mg BID PO 08/27/16 21:00 10/01/16 07:47 (Zoloft) 25 mg DAILY PO 08/28/16 09:00 10/01/16 07:47 (Lipitor) 40 mg HS PO 08/30/16 21:00 09/30/16 20:38 (Imdur) 60 mg DAILY PO 08/31/16 09:00 10/01/16 07:47 (Pill Splitter) 1 ea UNSCH PRN OTHER 08/30/16 12:00 09/05/16 12:40 Atenolol 25 mg 25 mg DAILY PO 09/06/16 09:00 10/01/16 07:47 (Coumadin Consult Pharmacy) 0 ml @ 0 mls/hr UNSCH OTHER 09/08/16 10:30 (Coumadin) 2.5 mg DAILY@1600 PO 09/11/16 16:00 09/30/16 17:07 (Zofran Odt) 4 mg Q6H PRN PO 09/18/16 15:15 A/P Problem List: (1) Dementia with behavioral disturbance ICD Code: F03.91 Status: Chronic (2) HTN (hypertension) ICD Code: I10 Status: Chronic (3) CAD (coronary artery disease) ICD Code: I25.10 Status: Chronic (4) Rectus sheath hematoma ICD Code: S30.1XXA Status: Acute (5) ALIYAH (acute kidney injury) ICD Code: N17.9 Status: Acute Assessment and Plan Dementia with behavioral disturbance, stable -Continue Seroquel, Sertraline, Namenda, Aricept -Psychiatry follow-up appreciated; [place] Act lifted; patient does not meet the criteria for admission to psych. -Patient remains stable. No change. -Will have psychiatry reevaluate patient to evaluate for competency to make own medical decisions. History of hypertension/dyslipidemia/aVR/CAD -BP with adequate control -Echocardiogram with AV prosthesis -Continue atenolol and Imdur with hold parameters. Clonidine and hydralazine as needed. -Lipitor restarted. -Continue Coumadin. INR goal 2.5-3.0. INR 1.9 09/28/16. Pharmacy dosing. INR for today pending. Rectus sheath hematoma: Improving -CT abdomen/posterior left rectus sheath hematoma which is stable on repeat CT. -Evaluated by hematology. -Resumed coumadin and will monitor closely. No evidence of acute bleed. Acute kidney injury: Resolved. -Avoid nephrotoxic drugs -Accurate I/Os -Monitor urine output Anemia/Thrombocytopenia/Coumadin use: -Evaluated by hematology -Received FFP and protamine along with pRBCs -Resumed coumadin -Monitor H/H periodically. Hemoglobin stable. Gram-negative yahaira UTI: treated Hypernatremia: Resolved. Hypokalemia: Resolved. -Monitor periodically and replete as needed. PT: Ambulated 200 feet unaided and 200 feet with frontwheel walker. Continue with participation. GI PPx: Protonix DVT PPx: SCDs, Coumadin. Written by Jackeline Pappas PA-C acting as scribe for Dr. Dodge on 10/01/16 at 12:25. Discharge Planning CM following evaluating facilities with dementia units. Per last case management note, healthcare change requested to initiate [facility] Medicaid for placement. Attending Statement All or portions of this note were transcribed by scribe Jackeline Pappas PA-C. I, Dr. Jeferson Dodge personally performed the history, physical exam, and medical decision making; and confirmed the accuracy of the information in the transcribed note. Authenticated by Dr. Jeferson Dodge on 10/02/16 at 07:49. Jackeline Pappas Oct 01, 2016 12:26 Jeferson Dodge MD Oct 02, 2016 07:49
[2016-10-01 12:44] LABS: INTERNATIONAL NORMALIZED RATIO 2.4 RATIO; PROTHROMBIN TIME - PATIENT 27.4 SEC (9.8-11.6)
--- NOTE | 2016-10-01 16:14 | HHI.PYPN ---
Subjective Remarks Patient was seen today for psychiatric reevaluation, she was interviewed in her primary language, Anguillan, patient is calm, cooperative and pleasant, she says that she feels much better now and she wants to go back home with her and her kids. However, patient thinks that she is in [facility] in [facility], she doesn't remember the name of her , she doesn't know the reason of her hospitalization, she says that she was brought to the hospital "because I wasn't feeling good", but when she was asked to elaborate about her symptoms she was unable to do it. She is also disoriented in time she thinks that we are in March 1929. She is unable to repeat 3 objects, unable to abstract, unable to recall 3 words in 1 minute. She reports good mood, she denies suicidal or homicidal ideation, she denies visual and auditory hallucinations. Nurse in charge described the patient as an easy patient to do with, pleasant, mostly disoriented, but with some periods of lucidity, no agitation, aggressive behavior, mood dysregulation reported, she has been fully compliant with her medications. Review of Systems Constitutional: DENIES: Diaphoretic episodes, Fatigue, Fever, Weight gain, Weight loss, Chills, Dizziness, Change in appetite, Night Sweats Endocrine: DENIES: Abnorml menstrual pattern, Heat/cold intolerance, Polydipsia , Polyuria, Polyphagia Eyes: DENIES: Blurred vision, Diplopia, Eye inflammation, Eye pain, Vision loss , Photosensitivity, Double Vision Ears, nose, mouth, throat: DENIES: Tinnitus, Hearing loss, Vertigo, Nasal discharge, Oral lesions, Throat pain, Hoarseness, Ear Pain, Running Nose, Epistaxis, Sinus Pain, Toothache, Odynophagia Respiratory: DENIES: Apneas, Cough, Snoring, Wheezing, Hemoptysis, Sputum production, Shortness of breath Cardiovascular: DENIES: Chest pain, Palpitations, Syncope, Dyspnea on Exertion , PND, Lower Extremity Edema, Orthopnea, Claudication Gastrointestinal: DENIES: Abdominal pain, Black stools, Bloody stools, Constipation, Diarrhea, Nausea, Vomiting, Difficulty Swallowing, Anorexia Genitourinary: DENIES: Abnormal vaginal bleeding, Dysmenorrhea, Dyspareunia, Sexual dysfunction, Urinary frequency, Urinary incontinence, Urgency, Hematuria , Dysuria, Nocturia, Vaginal discharge Musculoskeletal: DENIES: Joint pain, Muscle aches, Stiffness, Joint Swelling, Back pain, Neck pain Integumentary: DENIES: Abnormal pigmentation, Pruritus, Rash, Nail changes, Breast masses, Breast skin changes, Nipple discharge Hematologic/lymphatic: DENIES: Bruising, Lymphadenopathy Immunologic/allergic: DENIES: Eczema, Urticaria Psychiatric: DENIES: Anxiety, Confusion, Mood changes, Depression, Hallucinations, Agitation, Suicidal Ideation, Homicidal Ideation, Delusions Objective Alert: Yes [place]: Person Mood: Calm Affect: Restricted Memory Intact: Immediate Hallucinations: Other Delusions: No Delusion Type: Other (none) Suicidal: Ideation (no SI) Homicidal: Ideation (no SI) Insight/Judgement Poor Labs Test 10/01/16 12:25 Prothrombin Time 27.4 SEC Prothromb Time International 2.4 RATIO Ratio Vitals/IOs Vital Signs Date Time Temp Pulse Resp B/P Pulse Ox O2 Delivery O2 Flow Rate FiO2 10/01/16 08:00 97.3 67 17 138/72 97 Intake and Output 09/30/16 09/30/16 09/30/16 07:59 15:59 23:59 Intake Total 120 ml 580 ml 120 ml Balance 120 ml 580 ml 120 ml Assessment & Plan Problem List: (1) Dementia with behavioral disturbance Assessment & Plan: Not acute concerning for significant symptomatology of depression, anxiety or perceptual disturbances reported or observed, patient denies suicidal or homicidal ideation, she denies visual and auditory hallucinations. No agitation, no aggressive behavior, reported. Patient is disoriented, pleasantly confused, detached from reality due to her chronic dementia. No changes in psychotropics. Patient does not have decision-making capacity to leave AMA or to participate in her discharge plan. pantry worker needs to identify healthcare by proxy to make decisions for the patient. Palliative care consult could be helpful in this matter. ICD Code: F03.91 Assessment & Plan Estimated LOS: days Justification for Cont. Inpt. Patient does not meet criteria for psychiatric hospitalization at this moment Meir Samayoa MD Oct 01, 2016 16:14
[2016-10-01] MEDS: WARFARIN SOD 2.5 MG TAB PO SCH (18:13)
[2016-10-01 20:00] VITALS: BP 121/75; PULSE 68; RESP 20; TEMP 97.6; O2SAT 96
[2016-10-01] MEDS: ATORVASTATIN 40 MG TAB PO SCH (21:03)
[2016-10-01] MEDS: DONEPEZIL HCL 5 MG TAB PO SCH (21:03)
[2016-10-02 07:21] LABS: INTERNATIONAL NORMALIZED RATIO 2.5 RATIO; PROTHROMBIN TIME - PATIENT 28.9 SEC (9.8-11.6)
[2016-10-02] MEDS: SERTRALINE HCL 50 MG TAB PO SCH (07:55)
[2016-10-02] MEDS: QUEtiapine FUMARATE 25 MG TAB PO SCH ×2 (07:55→21:35)
[2016-10-02] MEDS: ATENOLOL 25 MG TAB PO SCH (07:55)
[2016-10-02] MEDS: DOCUSATE SODIUM 100 MG CAP PO SCH ×2 (07:55→22:05)
[2016-10-02] MEDS: ISOSORBIDE MONONITRATE 60 MG TAB PO SCH (07:55)
[2016-10-02] MEDS: MEMANTINE HCL 10 MG TAB PO SCH (07:55)
[2016-10-02 08:00] VITALS: BP 111/63; PULSE 67; RESP 16; TEMP 97.2; O2SAT 98
--- NOTE | 2016-10-02 13:55 | HHI.PR ---
Subjective Remarks Follow-up on patient with severe dementia. Patient seen and examined. Retail Loss Prevention Officer utilized to speak with patient and her [place]ian language. Patient states she's feeling well. She has no acute medical issues. No chest pain or shortness of breath. Objective Vitals Vital Signs Date Time Temp Pulse Resp B/P Pulse Ox O2 Delivery O2 Flow Rate FiO2 10/02/16 08:00 97.2 67 16 111/63 98 10/01/16 20:00 97.6 68 20 121/75 96 I/O 10/01/16 10/01/16 10/01/16 10/02/16 10/02/16 10/02/16 07:00 15:00 23:00 07:00 15:00 23:00 Intake Total 120 ml 460 ml 220 ml 60 ml Balance 120 ml 460 ml 220 ml 60 ml Intake Oral 120 ml 460 ml 220 ml 60 ml # Voids 1 2 1 1 # Bowel Movements 0 0 0 Objective Remarks GENERAL: Well-developed, well-nourished patient in no apparent distress. Lying in hospital bed. Asleep but easily arousable. CARDIOVASCULAR: Regular rate and rhythm. RESPIRATORY: No accessory muscle use. Clear to auscultation. Breath sounds equal bilaterally. GASTROINTESTINAL: Abdomen soft, nontender, nondistended. NEUROLOGICAL: Awake and alert. Normal speech. PSYCHIATRIC: Confused. Oriented to self only. Normal affect. Appropriate. Procedures none Urinary Catheter: No Vascular Central Line Catheter: No Procedures none Medications and IVs Current Medications Medications (Trade) Dose Ordered Sig/[facility] Route Start Time Stop Time Status Last Admin (Tylenol) 650 mg Q6H PRN PO 08/27/16 10:30 (Colace) 100 mg BID PO 08/27/16 21:00 10/02/16 07:55 (SEROquel) 25 mg BID PO 08/27/16 21:00 10/02/16 07:55 (Aricept) 10 mg HS PO 08/27/16 21:00 10/01/16 21:03 (Namenda) 10 mg BID PO 08/27/16 21:00 10/02/16 07:55 (Zoloft) 25 mg DAILY PO 08/28/16 09:00 10/02/16 07:55 (Lipitor) 40 mg HS PO 08/30/16 21:00 10/01/16 21:03 (Imdur) 60 mg DAILY PO 08/31/16 09:00 10/02/16 07:55 (Pill Splitter) 1 ea UNSCH PRN OTHER 08/30/16 12:00 09/05/16 12:40 Atenolol 25 mg 25 mg DAILY PO 09/06/16 09:00 10/02/16 07:55 (Coumadin Consult Pharmacy) 0 ml @ 0 mls/hr UNSCH OTHER 09/08/16 10:30 (Coumadin) 2.5 mg DAILY@1600 PO 09/11/16 16:00 10/01/16 18:13 (Zofran Odt) 4 mg Q6H PRN PO 09/18/16 15:15 A/P Problem List: (1) Dementia with behavioral disturbance ICD Code: F03.91 Status: Chronic (2) HTN (hypertension) ICD Code: I10 Status: Chronic (3) CAD (coronary artery disease) ICD Code: I25.10 Status: Chronic (4) Rectus sheath hematoma ICD Code: S30.1XXA Status: Acute (5) ALIYAH (acute kidney injury) ICD Code: N17.9 Status: Acute Assessment and Plan Dementia with behavioral disturbance, stable -Continue Seroquel, Sertraline, Namenda, Aricept -Psychiatry follow-up appreciated; Dillon Act lifted; patient does not meet the criteria for admission to psych. -Patient remains stable. No change. -Patient reevaluated by Dr. Samayoa. Very much appreciate his assistance. Per his assessment, patient does not have decision-making capacity to leave AMA or to participate in her discharge plan. He recommended a social media developer needs to notify healthcare proxy to make decisions for the patient and that palliative care could be helpful in this matter. History of hypertension/dyslipidemia/aVR/CAD -BP with adequate control -Echocardiogram with AV prosthesis -Continue atenolol and Imdur with hold parameters. Clonidine and hydralazine as needed. -Lipitor restarted. -Continue Coumadin. INR goal 2.5-3.0. INR 1.9 09/28/16. Pharmacy dosing. INR for today pending. Rectus sheath hematoma: Improving -CT abdomen/posterior left rectus sheath hematoma which is stable on repeat CT. -Evaluated by hematology. -Resumed coumadin and will monitor closely. No evidence of acute bleed. Acute kidney injury: Resolved. -Avoid nephrotoxic drugs -Accurate I/Os -Monitor urine output Anemia/Thrombocytopenia/Coumadin use: -Evaluated by hematology -Received FFP and protamine along with pRBCs -Resumed coumadin -Monitor H/H periodically. Hemoglobin stable. Gram-negative yahaira UTI: treated Hypernatremia: Resolved. Hypokalemia: Resolved. -Monitor periodically and replete as needed. PT: Ambulated 200 feet unaided and 200 feet with frontwheel walker. Continue with participation. GI PPx: Protonix DVT PPx: SCDs, Coumadin. Discharge Planning CM following evaluating facilities with dementia units. Per last case management note, healthcare change requested to initiate [facility] Medicaid for placement. Attending Statement Patient seen. Agree with above. Jackeline Pappas Oct 02, 2016 13:55 Jeferson Dodge MD Oct 02, 2016 14:53
[2016-10-02] MEDS: WARFARIN SOD 2.5 MG TAB PO SCH (16:55)
[2016-10-02 20:00] VITALS: BP 142/66; PULSE 74; RESP 16; TEMP 97.6; O2SAT 96
[2016-10-02] MEDS: DONEPEZIL HCL 5 MG TAB PO SCH (21:35)
[2016-10-02] MEDS: ATORVASTATIN 40 MG TAB PO SCH (21:35)
[2016-10-02] MEDS ORDERED: MEMANTINE HCL 5 MG TAB PO ONE (22:15)
[2016-10-03 08:00] VITALS: BP 144/79; PULSE 79; RESP 18; TEMP 97.7; O2SAT 99
[2016-10-03 08:06] LABS: INTERNATIONAL NORMALIZED RATIO 2.4 RATIO; PROTHROMBIN TIME - PATIENT 27.5 SEC (9.8-11.6)
[2016-10-03] MEDS: DOCUSATE SODIUM 100 MG CAP PO SCH ×2 (09:11→20:34)
[2016-10-03] MEDS: MEMANTINE HCL 5 MG TAB PO SCH ×2 (09:12→20:35)
[2016-10-03] MEDS: QUEtiapine FUMARATE 25 MG TAB PO SCH ×2 (09:12→20:35)
[2016-10-03] MEDS: ATENOLOL 25 MG TAB PO SCH (09:12)
[2016-10-03] MEDS: SERTRALINE HCL 50 MG TAB PO SCH (09:12)
[2016-10-03] MEDS: ISOSORBIDE MONONITRATE 60 MG TAB PO SCH (09:12)
--- NOTE | 2016-10-03 13:46 | HHI.PR ---
Subjective Remarks Patient seen and examined today. Patient denies any new complaints. No change in clinical status. Objective Vitals Vital Signs Date Time Temp Pulse Resp B/P Pulse Ox O2 Delivery O2 Flow Rate FiO2 10/03/16 08:00 97.7 79 18 144/79 99 10/02/16 20:00 97.6 74 16 142/66 96 I/O 10/02/16 10/02/16 10/02/16 10/03/16 10/03/16 10/03/16 07:00 15:00 23:00 07:00 15:00 23:00 Intake Total 685 ml 360 ml 240 ml Balance 685 ml 360 ml 240 ml Intake Oral 685 ml 360 ml 240 ml # Voids 4 2 1 # Bowel Movements 1 0 0 Objective Remarks GENERAL: Well-developed, well-nourished, in no acute distress. alert HEENT: Head is normocephalic without any lesions or masses noted. Facial features are symmetric. Eyes: Extraocular muscles are intact. Conjunctivae were clear. NECK: Supple without any masses. Trachea midline no deviation. No JVD, CARDIAC: Regular rhythm, regular rate. S1/S2 are heard. No murmurs gallops or rubs. Obvious valve click LUNGS: Clear to auscultation bilaterally. No wheeze, rhonchi or rales. No use of accessory muscles on inspiration or expiration. ABDOMEN: Soft, nontender. Nondistended. Bowel sounds heard in all 4 quadrants. No organomegaly or masses. Negative rebound, negative guarding EXTREMITIES: No edema, pulses are equal bilaterally. No cyanosis or clubbing NEUROLOGY: Mood and affect appear appropriate. Cranial nerves II through XII grossly intact. Moving all extremities, speech is clear Procedures none Urinary Catheter: No Vascular Central Line Catheter: No A/P Assessment and Plan Dementia with behavioral disturbance -Continue Seroquel, Sertraline, Namenda, Aricept -Psychiatry following patient.; [place] Act lifted; patient does not meet the criteria for admission to psych. Indicated that patient does not have decision- making capacity at this time. Is recommended social media campaign manager needs to notify healthcare proxy to make decisions for the patient. -Patient currently stable. History of hypertension/dyslipidemia/aVR/CAD -Echocardiogram with AV prosthesis -Continue atenolol and Imdur with hold parameters. Clonidine and hydralazine as needed. -Lipitor restarted. -Continue Coumadin. INR goal 2.5-3.0. INR 2.4 today. Pharmacy dosing. Rectus sheath hematoma: Improving -CT abdomen/posterior left rectus sheath hematoma which is stable on repeat CT. -Evaluated by hematology. -Continue on coumadin and will monitor closely. Acute kidney injury: Resolved. -Avoid nephrotoxic drugs -Accurate I/Os -Monitor urine output Anemia/Thrombocytopenia/Coumadin use: -Evaluated by hematology -Received FFP and protamine along with pRBCs -Resumed coumadin -Monitor H/H periodically. Hemoglobin stable at 10.2. DVT PPx: SCDs, Coumadin. Discharge Planning Case management for discharge planning. Patient does not have capacity make her own decisions per psychiatry. Recommending case management to evaluate for healthcare proxy. Attending Statement Patient seen. Agree with above. Jeferson Beltran Oct 03, 2016 13:46 Jeferson Dodge MD Oct 03, 2016 16:37
[2016-10-03] MEDS: WARFARIN SOD 2.5 MG TAB PO SCH (16:04)
[2016-10-03 20:00] VITALS: BP 94/54; PULSE 66; RESP 16; TEMP 98; O2SAT 98
[2016-10-03] MEDS: ATORVASTATIN 40 MG TAB PO SCH (20:35)
[2016-10-03] MEDS: DONEPEZIL HCL 5 MG TAB PO SCH (20:35)
[2016-10-04 08:19] LABS: INTERNATIONAL NORMALIZED RATIO 2.3 RATIO; PROTHROMBIN TIME - PATIENT 25.8 SEC (9.8-11.6)
[2016-10-04 08:21] VITALS: BP 116/77; PULSE 91; RESP 18; TEMP 98.6; O2SAT 96
[2016-10-04] MEDS: ATENOLOL 25 MG TAB PO SCH (09:55)
[2016-10-04] MEDS: DOCUSATE SODIUM 100 MG CAP PO SCH ×2 (09:55→20:12)
[2016-10-04] MEDS: QUEtiapine FUMARATE 25 MG TAB PO SCH ×2 (09:55→20:12)
[2016-10-04] MEDS: ISOSORBIDE MONONITRATE 60 MG TAB PO SCH (09:55)
[2016-10-04] MEDS: MEMANTINE HCL 5 MG TAB PO SCH ×2 (09:55→20:11)
[2016-10-04] MEDS: SERTRALINE HCL 50 MG TAB PO SCH (09:55)
[2016-10-04] MEDS: WARFARIN SOD 2.5 MG TAB PO SCH (14:20)
--- NOTE | 2016-10-04 14:51 | HHI.PR ---
Subjective Remarks Patient seen and examined today. Patient denies any new complaints. She states that she wants to go home. Objective Vitals Vital Signs Date Time Temp Pulse Resp B/P Pulse Ox O2 Delivery O2 Flow Rate FiO2 10/04/16 08:21 98.6 91 18 116/77 96 10/03/16 20:00 98.0 66 16 94/54 98 I/O 10/03/16 10/03/16 10/03/16 10/04/16 10/04/16 10/04/16 07:00 15:00 23:00 07:00 15:00 23:00 Intake Total 240 ml 240 ml 220 ml Balance 240 ml 240 ml 220 ml Intake Oral 240 ml 240 ml 220 ml # Voids 1 6 2 # Bowel Movements 0 0 0 Objective Remarks GENERAL: Well-developed, well-nourished, in no acute distress. alert HEENT: Head is normocephalic without any lesions or masses noted. Facial features are symmetric. Eyes: Extraocular muscles are intact. Conjunctivae were clear. NECK: Supple without any masses. Trachea midline no deviation. No JVD, CARDIAC: Regular rhythm, regular rate. S1/S2 are heard. No murmurs gallops or rubs. Obvious valve click LUNGS: Clear to auscultation bilaterally. No wheeze, rhonchi or rales. No use of accessory muscles on inspiration or expiration. ABDOMEN: Soft, nontender. Nondistended. Bowel sounds heard in all 4 quadrants. No organomegaly or masses. Negative rebound, negative guarding EXTREMITIES: No edema, pulses are equal bilaterally. No cyanosis or clubbing NEUROLOGY: Mood and affect appear appropriate. Cranial nerves II through XII grossly intact. Moving all extremities, speech is clear Procedures none Urinary Catheter: No Vascular Central Line Catheter: No A/P Assessment and Plan Dementia with behavioral disturbance -Continue Seroquel, Sertraline, Namenda, Aricept -Psychiatry following patient.; [place] Act lifted; patient does not meet the criteria for admission to psych. Indicated that patient does not have decision- making capacity at this time. Is recommended clinical social work therapist needs to notify healthcare proxy to make decisions for the patient. -Patient currently stable. History of hypertension/dyslipidemia/aVR/CAD -Echocardiogram with AV prosthesis -Continue atenolol and Imdur with hold parameters. Clonidine and hydralazine as needed. -Lipitor restarted. -Continue Coumadin. INR goal 2.5-3.0. INR 2.3 today. Pharmacy dosing. Rectus sheath hematoma: Improving -CT abdomen/posterior left rectus sheath hematoma which is stable on repeat CT. -Evaluated by hematology. -Continue on coumadin and will monitor closely. Acute kidney injury: Resolved. -Avoid nephrotoxic drugs -Accurate I/Os -Monitor urine output Anemia/Thrombocytopenia/Coumadin use: -Evaluated by hematology -Received FFP and protamine along with pRBCs -Resumed coumadin -Monitor H/H periodically. Hemoglobin stable at 10.2. DVT PPx: SCDs, Coumadin. Discharge Planning Case management for discharge planning. Patient does not have capacity make her own decisions per psychiatry. Recommending case management to evaluate for healthcare proxy. Jeferson Beltran Oct 04, 2016 14:51
[2016-10-04 20:00] VITALS: BP 122/81; PULSE 76; RESP 20; TEMP 98.4; O2SAT 96
[2016-10-04] MEDS: ATORVASTATIN 40 MG TAB PO SCH (20:12)
[2016-10-04] MEDS: DONEPEZIL HCL 5 MG TAB PO SCH (20:12)
[2016-10-05 07:06] LABS: INTERNATIONAL NORMALIZED RATIO 2.2 RATIO; PROTHROMBIN TIME - PATIENT 24.8 SEC (9.8-11.6)
[2016-10-05 08:00] VITALS: BP 147/74; PULSE 70; RESP 18; TEMP 97.6; O2SAT 98
[2016-10-05] MEDS: SERTRALINE HCL 50 MG TAB PO SCH (09:13)
[2016-10-05] MEDS: DOCUSATE SODIUM 100 MG CAP PO SCH ×2 (09:13→20:45)
[2016-10-05] MEDS: ISOSORBIDE MONONITRATE 60 MG TAB PO SCH (09:13)
[2016-10-05] MEDS: QUEtiapine FUMARATE 25 MG TAB PO SCH ×2 (09:14→20:46)
[2016-10-05] MEDS: ATENOLOL 25 MG TAB PO SCH (09:14)
[2016-10-05] MEDS: MEMANTINE HCL 5 MG TAB PO SCH ×2 (09:17→20:45)
--- NOTE | 2016-10-05 14:07 | HHI.PR ---
Subjective Remarks Patient seen and examined today. Patient denies any new complaints. No change in clinical status Objective Vitals Vital Signs Date Time Temp Pulse Resp B/P Pulse Ox O2 Delivery O2 Flow Rate FiO2 10/05/16 08:00 97.6 70 18 147/74 98 10/04/16 20:00 98.4 76 20 122/81 96 I/O 10/04/16 10/04/16 10/04/16 10/05/16 10/05/16 10/05/16 07:00 15:00 23:00 07:00 15:00 23:00 Intake Total 220 ml 1343 ml 120 ml Balance 220 ml 1343 ml 120 ml Intake Oral 220 ml 1343 ml 120 ml # Voids 2 7 1 # Bowel Movements 0 1 Objective Remarks GENERAL: Well-developed, well-nourished, in no acute distress. alert HEENT: Head is normocephalic without any lesions or masses noted. Facial features are symmetric. Eyes: Extraocular muscles are intact. Conjunctivae were clear. NECK: Supple without any masses. Trachea midline no deviation. No JVD, CARDIAC: Regular rhythm, regular rate. S1/S2 are heard. No murmurs gallops or rubs. Obvious valve click LUNGS: Clear to auscultation bilaterally. No wheeze, rhonchi or rales. No use of accessory muscles on inspiration or expiration. ABDOMEN: Soft, nontender. Nondistended. Bowel sounds heard in all 4 quadrants. No organomegaly or masses. Negative rebound, negative guarding EXTREMITIES: No edema, pulses are equal bilaterally. No cyanosis or clubbing NEUROLOGY: Mood and affect appear appropriate. Cranial nerves II through XII grossly intact. Moving all extremities, speech is clear Procedures none Urinary Catheter: No Vascular Central Line Catheter: No A/P Assessment and Plan Dementia with behavioral disturbance -Continue Seroquel, Sertraline, Namenda, Aricept -Psychiatry following patient.; [place] Act lifted; patient does not meet the criteria for admission to psych. Indicated that patient does not have decision- making capacity at this time. Is recommended delinquency prevention social worker needs to notify healthcare proxy to make decisions for the patient. -Patient currently stable. History of hypertension/dyslipidemia/aVR/CAD -Echocardiogram with AV prosthesis -Continue atenolol and Imdur with hold parameters. Clonidine and hydralazine as needed. -Lipitor restarted. -Continue Coumadin. INR goal 2.5-3.0. INR 2.2 today. Pharmacy dosing. Rectus sheath hematoma: Improving -CT abdomen/posterior left rectus sheath hematoma which is stable on repeat CT. -Evaluated by hematology. -Continue on coumadin and will monitor closely. Acute kidney injury: Resolved. -Avoid nephrotoxic drugs -Accurate I/Os -Monitor urine output Anemia/Thrombocytopenia/Coumadin use: -Evaluated by hematology -Received FFP and protamine along with pRBCs -Resumed coumadin -Monitor H/H periodically. Hemoglobin stable at 10.2. DVT PPx: SCDs, Coumadin. Discharge Planning Case management for discharge planning. Patient does not have capacity make her own decisions per psychiatry. Recommending case management to evaluate for healthcare proxy. Jeferson Beltran Oct 05, 2016 14:07
[2016-10-05] MEDS: WARFARIN SOD 2.5 MG TAB PO SCH (16:17)
[2016-10-05 20:00] VITALS: BP 136/68; PULSE 68; RESP 20; TEMP 97.2; O2SAT 98
[2016-10-05] MEDS: ATORVASTATIN 40 MG TAB PO SCH (20:46)
[2016-10-05] MEDS: DONEPEZIL HCL 5 MG TAB PO SCH (20:46)
[2016-10-06 06:08] LABS: AUTOMATED NEUTROPHIL # 2.9 TH/MM3 (1.8-7.7); BASOPHIL % 0.5 % (0.0-2.0); EOSINOPHIL # 0.1 TH/MM3 (0-0.4); EOSINOPHIL % 2.5 % (0.0-4.0); HEMO FLAGS DIFF FINAL; LYMPH % 32.9 % (9.0-44.0); LYMPHOCYTE # 1.7 TH/MM3 (1.0-4.8); MEAN CELL VOLUME 94.8 FL (80.0-100.0); MEAN CORPUSCULAR HEMOGLOBIN 30.8 PG (27.0-34.0); MEAN CORPUSCULAR HGB CONC 32.5 % (32.0-36.0); MONO % 8.6 % (0.0-8.0); NEUT % 55.5 % (16.0-70.0); PLATELET COUNT 186 TH/MM3 (150-450); RED BLOOD COUNT 3.58 MIL/MM3 (4.00-5.30); RED CELL DISTRIBUTION WIDTH 15.3 % (11.6-17.2); WHITE BLOOD COUNT 5.1 TH/MM3 (4.0-11.0)
[2016-10-06 06:13] LABS: INTERNATIONAL NORMALIZED RATIO 2.3 RATIO; PROTHROMBIN TIME - PATIENT 25.9 SEC (9.8-11.6)
[2016-10-06 06:14] LABS: POTASSIUM 3.5 MEQ/L (3.5-5.1)
[2016-10-06 06:19] LABS: BICARBONATE 27.3 MEQ/L (21.0-32.0); MAGNESIUM 2.2 MG/DL (1.5-2.5)
[2016-10-06 08:00] VITALS: BP 129/73; PULSE 62; RESP 17; TEMP 98.2; O2SAT 95
[2016-10-06] MEDS: ISOSORBIDE MONONITRATE 60 MG TAB PO SCH (08:38)
[2016-10-06] MEDS: DOCUSATE SODIUM 100 MG CAP PO SCH ×2 (08:38→20:43)
[2016-10-06] MEDS: QUEtiapine FUMARATE 25 MG TAB PO SCH ×2 (08:38→20:46)
[2016-10-06] MEDS: ATENOLOL 25 MG TAB PO SCH (08:38)
[2016-10-06] MEDS: MEMANTINE HCL 5 MG TAB PO SCH ×2 (08:39→20:43)
[2016-10-06] MEDS: SERTRALINE HCL 50 MG TAB PO SCH (08:39)
--- NOTE | 2016-10-06 11:41 | HHI.PR ---
Subjective Remarks Patient seen and examined today. Patient denies any new complaints. No change in clinical status. Objective Vitals Vital Signs Date Time Temp Pulse Resp B/P Pulse Ox O2 Delivery O2 Flow Rate FiO2 10/06/16 08:00 98.2 62 17 129/73 95 10/05/16 20:00 97.2 68 20 136/68 98 I/O 10/05/16 10/05/16 10/05/16 10/06/16 10/06/16 10/06/16 07:00 15:00 23:00 07:00 15:00 23:00 Intake Total 120 ml 750 ml 120 ml 120 ml Balance 120 ml 750 ml 120 ml 120 ml Intake Oral 120 ml 750 ml 120 ml 120 ml # Voids 1 4 1 1 # Bowel Movements 1 Result Diagram: 10/06/16 0530 10/06/16 0530 Objective Remarks GENERAL: Well-developed, well-nourished, in no acute distress. alert HEENT: Head is normocephalic without any lesions or masses noted. Facial features are symmetric. Eyes: Extraocular muscles are intact. Conjunctivae were clear. NECK: Supple without any masses. Trachea midline no deviation. No JVD, CARDIAC: Regular rhythm, regular rate. S1/S2 are heard. No murmurs gallops or rubs. Obvious valve click LUNGS: Clear to auscultation bilaterally. No wheeze, rhonchi or rales. No use of accessory muscles on inspiration or expiration. ABDOMEN: Soft, nontender. Nondistended. Bowel sounds heard in all 4 quadrants. No organomegaly or masses. Negative rebound, negative guarding EXTREMITIES: No edema, pulses are equal bilaterally. No cyanosis or clubbing NEUROLOGY: Mood and affect appear appropriate. Cranial nerves II through XII grossly intact. Moving all extremities, speech is clear Procedures none Urinary Catheter: No Vascular Central Line Catheter: No A/P Assessment and Plan Dementia with behavioral disturbance -Continue Seroquel, Sertraline, Namenda, Aricept -Psychiatry following patient.; [place] Act lifted; patient does not meet the criteria for admission to psych. Indicated that patient does not have decision- making capacity at this time. Is recommended social scientist needs to notify healthcare proxy to make decisions for the patient. -Patient currently stable. History of hypertension/dyslipidemia/aVR/CAD -Echocardiogram with AV prosthesis -Continue atenolol and Imdur with hold parameters. Clonidine and hydralazine as needed. -Lipitor restarted. -Continue Coumadin. INR goal 2.5-3.0. INR 2.3 today. Pharmacy dosing. Rectus sheath hematoma: Improving -CT abdomen/posterior left rectus sheath hematoma which is stable on repeat CT. -Evaluated by hematology. -Continue on coumadin and will monitor closely. Acute kidney injury: Resolved. -Avoid nephrotoxic drugs -Accurate I/Os -Monitor urine output Anemia/Thrombocytopenia/Coumadin use: -Evaluated by hematology -Received FFP and protamine along with pRBCs -Resumed coumadin -Monitor H/H periodically. Hemoglobin stable at 10.2. DVT PPx: SCDs, Coumadin. Discharge Planning Case management for discharge planning. Patient does not have capacity make her own decisions per psychiatry. Recommending case management to evaluate for healthcare proxy. Jeferson Beltran Oct 06, 2016 11:41
[2016-10-06] MEDS: WARFARIN SOD 2.5 MG TAB PO SCH (15:55)
[2016-10-06 20:00] VITALS: BP 110/72; PULSE 71; RESP 16; TEMP 97.4; O2SAT 97
[2016-10-06] MEDS: DONEPEZIL HCL 5 MG TAB PO SCH (20:43)
[2016-10-06] MEDS: ATORVASTATIN 40 MG TAB PO SCH (20:43)
[2016-10-07 06:33] LABS: INTERNATIONAL NORMALIZED RATIO 2.1 RATIO; PROTHROMBIN TIME - PATIENT 24.1 SEC (9.8-11.6)
[2016-10-07 08:00] VITALS: BP 161/93; PULSE 105; RESP 18; TEMP 98.5; O2SAT 96
[2016-10-07] MEDS: ATENOLOL 25 MG TAB PO SCH (08:51)
[2016-10-07] MEDS: MEMANTINE HCL 5 MG TAB PO SCH ×2 (08:51→20:53)
[2016-10-07] MEDS: ISOSORBIDE MONONITRATE 60 MG TAB PO SCH (08:51)
[2016-10-07] MEDS: DOCUSATE SODIUM 100 MG CAP PO SCH ×2 (08:51→20:53)
[2016-10-07] MEDS: QUEtiapine FUMARATE 25 MG TAB PO SCH ×2 (08:51→20:52)
[2016-10-07] MEDS: SERTRALINE HCL 50 MG TAB PO SCH (08:51)
--- NOTE | 2016-10-07 11:38 | HHI.PR ---
Subjective Remarks Patient seen and examined today. Sitting comfortably in recliner chair. No new complaints. Denies pain. Afebrile. BP elevated today, morning medications administered. Objective Vitals Vital Signs Date Time Temp Pulse Resp B/P Pulse Ox O2 Delivery O2 Flow Rate FiO2 10/07/16 08:00 98.5 105 18 161/93 96 10/06/16 20:00 97.4 71 16 110/72 97 I/O 10/06/16 10/06/16 10/06/16 10/07/16 10/07/16 10/07/16 07:00 15:00 23:00 07:00 15:00 23:00 Intake Total 120 ml 240 ml 480 ml 480 ml Balance 120 ml 240 ml 480 ml 480 ml Intake Oral 120 ml 240 ml 480 ml 480 ml # Voids 1 2 2 3 # Bowel Movements 0 0 0 Result Diagram: 10/06/16 0530 10/06/16 0530 Objective Remarks GENERAL: Well-developed, well-nourished, in no acute distress. alert HEENT: Head is normocephalic without any lesions or masses noted. Facial features are symmetric. Eyes: Extraocular muscles are intact. Conjunctivae were clear. NECK: Supple without any masses. Trachea midline no deviation. No JVD, CARDIAC: Regular rhythm, regular rate. S1/S2 are heard. No murmurs gallops or rubs. Obvious valve click LUNGS: Clear to auscultation bilaterally. No wheeze, rhonchi or rales. No use of accessory muscles on inspiration or expiration. ABDOMEN: Soft, nontender. Nondistended. Bowel sounds heard in all 4 quadrants. No organomegaly or masses. Negative rebound, negative guarding EXTREMITIES: No edema, pulses are equal bilaterally. No cyanosis or clubbing NEUROLOGY: Mood and affect appear appropriate. Cranial nerves II through XII grossly intact. Moving all extremities, speech is clear Procedures none Urinary Catheter: No Vascular Central Line Catheter: No A/P Assessment and Plan Dementia with behavioral disturbance -Continue Seroquel, Sertraline, Namenda, Aricept -Psychiatry following patient.; [place] Act lifted; patient does not meet the criteria for admission to psych. Indicated that patient does not have decision- making capacity at this time. Is recommended sr. social media & mobile manager needs to notify healthcare proxy to make decisions for the patient. -Patient currently stable. History of hypertension/dyslipidemia/aVR/CAD -Echocardiogram with AV prosthesis -Continue atenolol and Imdur with hold parameters. Clonidine and hydralazine as needed. -Lipitor restarted. -Continue Coumadin. INR goal 2.5-3.0. INR 2.1 today. Pharmacy dosing. Rectus sheath hematoma: Improving -CT abdomen/posterior left rectus sheath hematoma which is stable on repeat CT. -Evaluated by hematology. -Continue on Coumadin and will monitor closely. Acute kidney injury: Resolved. -Avoid nephrotoxic drugs -Accurate I/Os -Monitor urine output Anemia/Thrombocytopenia/Coumadin use: -Evaluated by hematology -Received FFP and protamine along with pRBCs -Resumed Coumadin -Monitor H/H periodically. Hemoglobin stable at 11. DVT PPx: SCDs, Coumadin. Discharge Planning Case management for discharge planning. Patient does not have capacity make her own decisions per psychiatry. Recommending case management to evaluate for healthcare proxy. Jeferson Beltran Oct 07, 2016 11:38 her own decisions per psychiatry. Recommending case management to evaluate for healthcare proxy. Jeferson Beltran Oct 07, 2016 11:38
[2016-10-07] MEDS: WARFARIN SOD 2.5 MG TAB PO SCH (15:49)
[2016-10-07 20:00] VITALS: BP 106/60; PULSE 73; RESP 16; TEMP 98.2; O2SAT 96
[2016-10-07] MEDS: DONEPEZIL HCL 5 MG TAB PO SCH (20:52)
[2016-10-07] MEDS: ATORVASTATIN 40 MG TAB PO SCH (20:52)
[2016-10-08 06:07] LABS: INTERNATIONAL NORMALIZED RATIO 1.9 RATIO; PROTHROMBIN TIME - PATIENT 21.3 SEC (9.8-11.6)
[2016-10-08 08:00] VITALS: BP 107/80; PULSE 92; RESP 24; TEMP 96.4; O2SAT 98
[2016-10-08] MEDS: DOCUSATE SODIUM 100 MG CAP PO SCH ×2 (08:28→20:34)
[2016-10-08] MEDS: SERTRALINE HCL 50 MG TAB PO SCH (08:28)
[2016-10-08] MEDS: ISOSORBIDE MONONITRATE 60 MG TAB PO SCH (08:28)
[2016-10-08] MEDS: QUEtiapine FUMARATE 25 MG TAB PO SCH ×2 (08:29→20:34)
[2016-10-08] MEDS: MEMANTINE HCL 5 MG TAB PO SCH ×2 (08:29→20:34)
[2016-10-08] MEDS: ATENOLOL 25 MG TAB PO SCH (08:30)
[2016-10-08] MEDS ORDERED: WARFARIN SOD 1 MG TAB PO ONE (09:00)
--- NOTE | 2016-10-08 09:09 | HHI.PR ---
Subjective Remarks Patient seen and examined today. Patient denies any new complaints. Patient still indicates that she wants to go home. Objective Vitals Vital Signs Date Time Temp Pulse Resp B/P Pulse Ox O2 Delivery O2 Flow Rate FiO2 10/07/16 20:00 98.2 73 16 106/60 96 I/O 10/07/16 10/07/16 10/07/16 10/08/16 10/08/16 10/08/16 07:00 15:00 23:00 07:00 15:00 23:00 Intake Total 480 ml 360 ml 480 ml 220 ml Balance 480 ml 360 ml 480 ml 220 ml Intake Oral 480 ml 360 ml 480 ml 220 ml # Voids 3 2 2 2 # Bowel Movements 0 0 0 0 Result Diagram: 10/06/1652910/06/16 05 Objective Remarks GENERAL: Well-developed, well-nourished, in no acute distress. alert HEENT: Head is normocephalic without any lesions or masses noted. Facial features are symmetric. Eyes: Extraocular muscles are intact. Conjunctivae were clear. NECK: Supple without any masses. Trachea midline no deviation. No JVD, CARDIAC: Regular rhythm, regular rate. S1/S2 are heard. No murmurs gallops or rubs. Obvious valve click LUNGS: Clear to auscultation bilaterally. No wheeze, rhonchi or rales. No use of accessory muscles on inspiration or expiration. ABDOMEN: Soft, nontender. Nondistended. Bowel sounds heard in all 4 quadrants. No organomegaly or masses. Negative rebound, negative guarding EXTREMITIES: No edema, pulses are equal bilaterally. No cyanosis or clubbing NEUROLOGY: Mood and affect appear appropriate. Cranial nerves II through XII grossly intact. Moving all extremities, speech is clear Procedures none Urinary Catheter: No Vascular Central Line Catheter: No A/P Assessment and Plan Dementia with behavioral disturbance -Continue Seroquel, Sertraline, Namenda, Aricept -Psychiatry following patient.; [place] Act lifted; patient does not meet the criteria for admission to psych. Indicated that patient does not have decision- making capacity at this time. Is recommended mental health social worker needs to notify healthcare proxy to make decisions for the patient. -Patient currently stable. History of hypertension/dyslipidemia/aVR/CAD -Echocardiogram with AV prosthesis -Continue atenolol and Imdur with hold parameters. Clonidine and hydralazine as needed. -Lipitor restarted. -Continue Coumadin. INR goal 2.5-3.0. INR 1.9 today. Pharmacy dosing. Rectus sheath hematoma: Improving -CT abdomen/posterior left rectus sheath hematoma which is stable on repeat CT. -Evaluated by hematology. -Continue on Coumadin and will monitor closely. Acute kidney injury: Resolved. -Avoid nephrotoxic drugs -Accurate I/Os -Monitor urine output Anemia/Thrombocytopenia/Coumadin use: -Evaluated by hematology -Received FFP and protamine along with pRBCs -Resumed Coumadin -Monitor H/H periodically. Hemoglobin stable at 11. DVT PPx: SCDs, Coumadin. Discharge Planning Case management for discharge planning. Patient does not have capacity make her own decisions per psychiatry. Recommending case management to evaluate for healthcare proxy. Jeferson Beltran Oct 08, 2016 09:09
[2016-10-08] MEDS: WARFARIN SOD 3 MG TAB PO SCH (16:22)
[2016-10-08 20:00] VITALS: BP 148/88; PULSE 86; RESP 20; TEMP 98.2; O2SAT 97
[2016-10-08] MEDS: DONEPEZIL HCL 5 MG TAB PO SCH (20:34)
[2016-10-08] MEDS: ATORVASTATIN 40 MG TAB PO SCH (20:34)
[2016-10-09 06:22] LABS: INTERNATIONAL NORMALIZED RATIO 2.2 RATIO; PROTHROMBIN TIME - PATIENT 24.8 SEC (9.8-11.6)
[2016-10-09 08:00] VITALS: BP 131/82; PULSE 70; RESP 16; TEMP 98; O2SAT 98
[2016-10-09] MEDS: SERTRALINE HCL 50 MG TAB PO SCH (09:18)
[2016-10-09] MEDS: ATENOLOL 25 MG TAB PO SCH (09:18)
[2016-10-09] MEDS: DOCUSATE SODIUM 100 MG CAP PO SCH ×2 (09:18→20:33)
[2016-10-09] MEDS: MEMANTINE HCL 5 MG TAB PO SCH ×2 (09:18→20:33)
[2016-10-09] MEDS: ISOSORBIDE MONONITRATE 60 MG TAB PO SCH (09:19)
[2016-10-09] MEDS: QUEtiapine FUMARATE 25 MG TAB PO SCH ×2 (09:19→20:33)
[2016-10-09] MEDS: WARFARIN SOD 3 MG TAB PO SCH (15:17)
--- NOTE | 2016-10-09 18:16 | HHI.PR ---
Subjective Remarks Follow-up for dementia. Video aircraft designer utilized. Patient denies any acute complaints. Denies any pain. She ate her breakfast and lunch. Objective Vitals Vital Signs Date Time Temp Pulse Resp B/P Pulse Ox O2 Delivery O2 Flow Rate FiO2 10/09/16 08:00 98.0 70 16 131/82 98 10/08/16 20:00 98.2 86 20 148/88 97 I/O 10/08/16 10/08/16 10/08/16 10/09/16 10/09/16 10/09/16 07:00 15:00 23:00 07:00 15:00 23:00 Intake Total 220 ml 1080 ml 480 ml 60 ml 990 ml 420 ml Balance 220 ml 1080 ml 480 ml 60 ml 990 ml 420 ml Intake Oral 220 ml 1080 ml 480 ml 60 ml 990 ml 420 ml # Voids 2 3 2 2 3 1 # Bowel Movements 0 0 0 Result Diagram: 10/06/16 0530 10/06/16 0530 Objective Remarks GENERAL: Well-developed, well-nourished patient in no apparent distress. CARDIOVASCULAR: Regular rate and rhythm. RESPIRATORY: No accessory muscle use. Clear to auscultation. Breath sounds equal bilaterally. GASTROINTESTINAL: Abdomen soft, nontender, nondistended. NEUROLOGICAL: Awake and alert. Normal speech. PSYCHIATRIC: Normal mood and affect. Procedures none Urinary Catheter: No Vascular Central Line Catheter: No A/P Problem List: (1) Dementia with behavioral disturbance ICD Code: F03.91 Status: Chronic (2) HTN (hypertension) ICD Code: I10 Status: Chronic (3) CAD (coronary artery disease) ICD Code: I25.10 Status: Chronic (4) Rectus sheath hematoma ICD Code: S30.1XXA Status: Acute (5) ALIYAH (acute kidney injury) ICD Code: N17.9 Status: Acute Assessment and Plan Dementia with behavioral disturbance -Continue Seroquel, Sertraline, Namenda, Aricept -Psychiatry follow-up appreciated; [place] Act lifted; patient does not meet the criteria for admission to psych. -Patient currently stable. History of hypertension/dyslipidemia/aVR/CAD -Echocardiogram with AV prosthesis -Continue atenolol and Imdur with hold parameters. Clonidine and hydralazine as needed. -Lipitor restarted. -Continue Coumadin. INR goal 2.5-3.0. INR 2.2 today. Pharmacy dosing. Rectus sheath hematoma: Improving -CT abdomen/posterior left rectus sheath hematoma which is stable on repeat CT. -Evaluated by hematology. -Resumed coumadin and will monitor closely. Acute kidney injury: Resolved. -Avoid nephrotoxic drugs -Accurate I/Os -Monitor urine output Anemia/Thrombocytopenia/Coumadin use: -Evaluated by hematology -Received FFP and protamine along with pRBCs -Resumed coumadin -Monitor H/H periodically. Hemoglobin stable. Gram-negative yahaira UTI: treated Hypernatremia: Resolved. Hypokalemia: Resolved. -Monitor periodically and replete as needed. PT evaluate and treat GI PPx: Protonix DVT PPx: SCDs, Coumadin. Discharge Planning CM following. Bebe Stinson Oct 09, 2016 18:16
[2016-10-09 20:00] VITALS: BP 143/70; PULSE 69; RESP 19; TEMP 97.4; O2SAT 100
[2016-10-09] MEDS: ATORVASTATIN 40 MG TAB PO SCH (20:33)
[2016-10-09] MEDS: DONEPEZIL HCL 5 MG TAB PO SCH (20:33)
[2016-10-10 06:57] LABS: INTERNATIONAL NORMALIZED RATIO 2.7 RATIO; PROTHROMBIN TIME - PATIENT 30.6 SEC (9.8-11.6)
[2016-10-10 07:15] VITALS: BP 124/83; PULSE 76; RESP 20; TEMP 97.3; O2SAT 98
[2016-10-10] MEDS: SERTRALINE HCL 50 MG TAB PO SCH (07:56)
[2016-10-10] MEDS: ATENOLOL 25 MG TAB PO SCH (07:56)
[2016-10-10] MEDS: QUEtiapine FUMARATE 25 MG TAB PO SCH ×2 (07:56→22:53)
[2016-10-10] MEDS: DOCUSATE SODIUM 100 MG CAP PO SCH ×2 (07:56→22:53)
[2016-10-10] MEDS: ISOSORBIDE MONONITRATE 60 MG TAB PO SCH (07:56)
[2016-10-10] MEDS: MEMANTINE HCL 5 MG TAB PO SCH ×2 (07:56→22:54)
--- NOTE | 2016-10-10 11:37 | HHI.PR ---
Subjective Remarks Follow-up for dementia. Video auto body repairer is utilized. Patient goes on about how she wants to go home and does not want to go to facility. Tells me again that she had heart surgery. She does not have insight into fact that she has dementia. Objective Vitals Vital Signs Date Time Temp Pulse Resp B/P Pulse Ox O2 Delivery O2 Flow Rate FiO2 10/09/16 20:00 97.4 69 19 143/70 100 I/O 10/09/16 10/09/16 10/09/16 10/10/16 10/10/16 10/10/16 07:00 15:00 23:00 07:00 15:00 23:00 Intake Total 60 ml 990 ml 660 ml 120 ml Balance 60 ml 990 ml 660 ml 120 ml Intake Oral 60 ml 990 ml 660 ml 120 ml # Voids 2 3 2 1 # Bowel Movements 0 Result Diagram: 10/06/1630 10/06/16 0530 Objective Remarks GENERAL: Well-developed, well-nourished patient in no apparent distress. CARDIOVASCULAR: Regular rate and rhythm. RESPIRATORY: No accessory muscle use. Clear to auscultation. Breath sounds equal bilaterally. GASTROINTESTINAL: Abdomen soft, nontender, nondistended. NEUROLOGICAL: Awake and alert. Patient is not oriented to month, year, or president. She believes she is in a hospital in [place]. Normal speech. PSYCHIATRIC: Patient becomes somewhat frustrated as she desires to go home. Procedures none Urinary Catheter: No Vascular Central Line Catheter: No A/P Problem List: (1) Dementia with behavioral disturbance ICD Code: F03.91 Status: Chronic (2) HTN (hypertension) ICD Code: I10 Status: Chronic (3) CAD (coronary artery disease) ICD Code: I25.10 Status: Chronic (4) Rectus sheath hematoma ICD Code: S30.1XXA Status: Acute (5) ALIYAH (acute kidney injury) ICD Code: N17.9 Status: Acute Assessment and Plan Dementia with behavioral disturbance -Continue Seroquel, Sertraline, Namenda, Aricept -Psychiatry follow-up appreciated; Dillon Act lifted; patient does not meet the criteria for admission to psych. -Patient currently stable. History of hypertension/dyslipidemia/aVR/CAD -Echocardiogram with AV prosthesis -Continue atenolol and Imdur with hold parameters. Clonidine and hydralazine as needed. -Lipitor restarted. -Continue Coumadin. INR goal 2.5-3.0. INR 2.7 today. Pharmacy dosing. Rectus sheath hematoma: Improving -CT abdomen/posterior left rectus sheath hematoma which is stable on repeat CT. -Evaluated by hematology. -Resumed coumadin and will monitor closely. Acute kidney injury: Resolved. -Avoid nephrotoxic drugs -Accurate I/Os -Monitor urine output Anemia/Thrombocytopenia/Coumadin use: -Evaluated by hematology -Received FFP and protamine along with pRBCs -Resumed coumadin -Monitor H/H periodically. Hemoglobin stable. Gram-negative yahaira UTI: treated Hypernatremia: Resolved. Hypokalemia: Resolved. -Monitor periodically and replete as needed. PT evaluate and treat GI PPx: Protonix DVT PPx: SCDs, Coumadin. Discharge Planning CM following. Awaiting Medicaid for placement. Bebe Stinson Oct 10, 2016 11:37
[2016-10-10] MEDS: WARFARIN SOD 3 MG TAB PO SCH (16:33)
[2016-10-10 20:00] VITALS: BP 95/56; PULSE 72; RESP 19; TEMP 96.2; O2SAT 98
[2016-10-10] MEDS: DONEPEZIL HCL 5 MG TAB PO SCH (22:53)
[2016-10-10] MEDS: ATORVASTATIN 40 MG TAB PO SCH (22:53)
[2016-10-11 05:51] LABS: INTERNATIONAL NORMALIZED RATIO 2.9 RATIO; PROTHROMBIN TIME - PATIENT 33.4 SEC (9.8-11.6)
[2016-10-11 08:00] VITALS: BP 118/74; PULSE 74; RESP 16; TEMP 97.3; O2SAT 97
[2016-10-11] MEDS: ATENOLOL 25 MG TAB PO SCH (09:08)
[2016-10-11] MEDS: QUEtiapine FUMARATE 25 MG TAB PO SCH ×2 (09:08→20:30)
[2016-10-11] MEDS: DOCUSATE SODIUM 100 MG CAP PO SCH ×2 (09:08→20:30)
[2016-10-11] MEDS: ISOSORBIDE MONONITRATE 60 MG TAB PO SCH (09:08)
[2016-10-11] MEDS: SERTRALINE HCL 50 MG TAB PO SCH (09:08)
[2016-10-11] MEDS: MEMANTINE HCL 5 MG TAB PO SCH ×2 (09:09→20:30)
--- NOTE | 2016-10-11 09:40 | HHI.PR ---
Subjective Remarks No acute complaints. Patient again tells me she had heart surgery in [place]. Denies any pain. Objective Vitals Vital Signs Date Time Temp Pulse Resp B/P Pulse Ox O2 Delivery O2 Flow Rate FiO2 10/10/16 20:00 96.2 72 19 95/56 98 I/O 10/10/16 10/10/16 10/10/16 10/11/16 10/11/16 10/11/16 06:59 14:59 22:59 06:59 14:59 22:59 Intake Total 120 ml 600 ml 120 ml 120 ml Balance 120 ml 600 ml 120 ml 120 ml Intake Oral 120 ml 600 ml 120 ml 120 ml IV Total 0 ml 0 ml # Voids 1 4 1 1 # Bowel Movements 0 Objective Remarks GENERAL: Well-developed, well-nourished patient in no apparent distress. CARDIOVASCULAR: Regular rate and rhythm. RESPIRATORY: No accessory muscle use. Clear to auscultation. Breath sounds equal bilaterally. GASTROINTESTINAL: Abdomen soft, nontender, nondistended. NEUROLOGICAL: Awake and alert. Normal speech. PSYCHIATRIC: Normal mood and affect. Procedures none Urinary Catheter: No Vascular Central Line Catheter: No A/P Problem List: (1) Dementia with behavioral disturbance ICD Code: F03.91 Status: Chronic (2) HTN (hypertension) ICD Code: I10 Status: Chronic (3) CAD (coronary artery disease) ICD Code: I25.10 Status: Chronic (4) Rectus sheath hematoma ICD Code: S30.1XXA Status: Acute (5) ALIYAH (acute kidney injury) ICD Code: N17.9 Status: Acute Assessment and Plan Dementia with behavioral disturbance -Continue Seroquel, Sertraline, Namenda, Aricept -Psychiatry follow-up appreciated; [place] Act lifted; patient does not meet the criteria for admission to psych. -Patient currently stable. History of hypertension/dyslipidemia/aVR/CAD -Echocardiogram with AV prosthesis -Continue atenolol and Imdur with hold parameters. Clonidine and hydralazine as needed. -Lipitor restarted. -Continue Coumadin. INR goal 2.5-3.0. INR 2.9 today. Pharmacy dosing. Rectus sheath hematoma: Improving -CT abdomen/posterior left rectus sheath hematoma which is stable on repeat CT. -Evaluated by hematology. -Resumed coumadin and will monitor closely. Acute kidney injury: Resolved. -Avoid nephrotoxic drugs -Accurate I/Os -Monitor urine output Anemia/Thrombocytopenia/Coumadin use: -Evaluated by hematology -Received FFP and protamine along with pRBCs -Resumed coumadin -Monitor H/H periodically. Hemoglobin stable. Gram-negative yahaira UTI: treated Hypernatremia: Resolved. Hypokalemia: Resolved. -Monitor periodically and replete as needed. PT evaluate and treat GI PPx: Protonix DVT PPx: SCDs, Coumadin. Discharge Planning CM following. Awaiting Medicaid for placement. Bebe Stinson Oct 11, 2016 09:40
[2016-10-11] MEDS: WARFARIN SOD 3 MG TAB PO SCH (16:10)
[2016-10-11 20:00] VITALS: BP 131/71; PULSE 97; RESP 16; TEMP 97; O2SAT 96
[2016-10-11] MEDS: ATORVASTATIN 40 MG TAB PO SCH (20:30)
[2016-10-11] MEDS: DONEPEZIL HCL 5 MG TAB PO SCH (20:30)
[2016-10-12 06:50] LABS: INTERNATIONAL NORMALIZED RATIO 2.8 RATIO; PROTHROMBIN TIME - PATIENT 31.8 SEC (9.8-11.6)
[2016-10-12 08:00] VITALS: BP 135/94; PULSE 93; RESP 18; TEMP 97.9; O2SAT 97
[2016-10-12] MEDS: DOCUSATE SODIUM 100 MG CAP PO SCH ×2 (08:53→20:36)
[2016-10-12] MEDS: ATENOLOL 25 MG TAB PO SCH (08:53)
[2016-10-12] MEDS: ISOSORBIDE MONONITRATE 60 MG TAB PO SCH (08:54)
[2016-10-12] MEDS: MEMANTINE HCL 5 MG TAB PO SCH ×2 (08:54→20:37)
[2016-10-12] MEDS: QUEtiapine FUMARATE 25 MG TAB PO SCH ×2 (08:54→20:37)
[2016-10-12] MEDS: SERTRALINE HCL 50 MG TAB PO SCH (08:54)
--- NOTE | 2016-10-12 10:42 | HHI.PR ---
Subjective Remarks Follow-up for dementia. Patient again states she does not need to be in a nursing facility and desires to go home. Objective Vitals Vital Signs Date Time Temp Pulse Resp B/P Pulse Ox O2 Delivery O2 Flow Rate FiO2 10/12/16 08:00 97.9 93 18 135/94 97 10/11/16 20:00 97.0 97 16 131/71 96 I/O 10/11/16 10/11/16 10/11/16 10/12/16 10/12/16 10/12/16 07:00 15:00 23:00 07:00 15:00 23:00 Intake Total 120 ml 360 ml 480 ml 220 ml Balance 120 ml 360 ml 480 ml 220 ml Intake Oral 120 ml 360 ml 480 ml 220 ml IV Total 0 ml # Voids 1 1 4 2 # Bowel Movements 0 0 Objective Remarks GENERAL: Well-developed, well-nourished patient in no apparent distress. CARDIOVASCULAR: Regular rate and rhythm. RESPIRATORY: No accessory muscle use. Clear to auscultation. Breath sounds equal bilaterally. GASTROINTESTINAL: Abdomen soft, nontender, nondistended. NEUROLOGICAL: Awake and alert. Normal speech. PSYCHIATRIC: Normal mood and affect. Procedures none Urinary Catheter: No Vascular Central Line Catheter: No A/P Problem List: (1) Dementia with behavioral disturbance ICD Code: F03.91 Status: Chronic (2) HTN (hypertension) ICD Code: I10 Status: Chronic (3) CAD (coronary artery disease) ICD Code: I25.10 Status: Chronic (4) Rectus sheath hematoma ICD Code: S30.1XXA Status: Acute (5) ALIYAH (acute kidney injury) ICD Code: N17.9 Status: Acute Assessment and Plan Dementia with behavioral disturbance -Continue Seroquel, Sertraline, Namenda, Aricept -Psychiatry follow-up appreciated; [place] Act lifted; patient does not meet the criteria for admission to psych. -Patient currently stable. History of hypertension/dyslipidemia/aVR/CAD -Echocardiogram with AV prosthesis -Continue atenolol and Imdur with hold parameters. Clonidine and hydralazine as needed. -Lipitor restarted. -Continue Coumadin. INR goal 2.5-3.0. INR 2.8 today. Pharmacy dosing. Rectus sheath hematoma: Improving -CT abdomen/posterior left rectus sheath hematoma which is stable on repeat CT. -Evaluated by hematology. -Resumed coumadin and will monitor closely. Acute kidney injury: Resolved. -Avoid nephrotoxic drugs -Accurate I/Os -Monitor urine output Anemia/Thrombocytopenia/Coumadin use: -Evaluated by hematology -Received FFP and protamine along with pRBCs -Resumed coumadin -Monitor H/H periodically. Hemoglobin stable. Gram-negative yahaira UTI: treated Hypernatremia: Resolved. Hypokalemia: Resolved. -Monitor periodically and replete as needed. PT evaluate and treat GI PPx: Protonix DVT PPx: SCDs, Coumadin. Discharge Planning CM following. Awaiting Medicaid for placement. Bebe Stinson Oct 12, 2016 10:42
[2016-10-12] MEDS: WARFARIN SOD 3 MG TAB PO SCH (16:00)
[2016-10-12 20:00] VITALS: BP 138/72; PULSE 73; RESP 18; TEMP 97.6; O2SAT 96
[2016-10-12] MEDS: ATORVASTATIN 40 MG TAB PO SCH (20:36)
[2016-10-12] MEDS: DONEPEZIL HCL 5 MG TAB PO SCH (20:37)
[2016-10-13 06:34] LABS: INTERNATIONAL NORMALIZED RATIO 2.8 RATIO; PROTHROMBIN TIME - PATIENT 32.8 SEC (9.8-11.6)
[2016-10-13 08:00] VITALS: BP 133/76; PULSE 73; RESP 19; TEMP 97.3; O2SAT 97
[2016-10-13] MEDS: SERTRALINE HCL 50 MG TAB PO SCH (09:11)
[2016-10-13] MEDS: DOCUSATE SODIUM 100 MG CAP PO SCH ×2 (09:11→20:31)
[2016-10-13] MEDS: ISOSORBIDE MONONITRATE 60 MG TAB PO SCH (09:11)
[2016-10-13] MEDS: ATENOLOL 25 MG TAB PO SCH (09:12)
[2016-10-13] MEDS: QUEtiapine FUMARATE 25 MG TAB PO SCH ×2 (09:12→20:31)
[2016-10-13] MEDS: MEMANTINE HCL 5 MG TAB PO SCH ×2 (09:12→20:32)
--- NOTE | 2016-10-13 12:21 | HHI.PR ---
Subjective Remarks No acute complaints. No change in clinical status. Objective Vitals Vital Signs Date Time Temp Pulse Resp B/P Pulse Ox O2 Delivery O2 Flow Rate FiO2 10/13/16 08:00 97.3 73 19 133/76 97 10/12/16 20:00 97.6 73 18 138/72 96 I/O 10/12/16 10/12/16 10/12/16 10/13/16 10/13/16 10/13/16 07:00 15:00 23:00 07:00 15:00 23:00 Intake Total 220 ml 120 ml 480 ml 220 ml Balance 220 ml 120 ml 480 ml 220 ml Intake Oral 220 ml 120 ml 480 ml 220 ml # Voids 2 1 2 2 # Bowel Movements 0 0 0 Objective Remarks GENERAL: Well-developed, well-nourished patient in no apparent distress. CARDIOVASCULAR: Regular rate and rhythm. RESPIRATORY: No accessory muscle use. Clear to auscultation. Breath sounds equal bilaterally. GASTROINTESTINAL: Abdomen soft, nontender, nondistended. NEUROLOGICAL: Awake and alert. Normal speech. PSYCHIATRIC: Normal mood and affect. Procedures none Urinary Catheter: No Vascular Central Line Catheter: No A/P Problem List: (1) Dementia with behavioral disturbance ICD Code: F03.91 Status: Chronic (2) HTN (hypertension) ICD Code: I10 Status: Chronic (3) CAD (coronary artery disease) ICD Code: I25.10 Status: Chronic (4) Rectus sheath hematoma ICD Code: S30.1XXA Status: Acute (5) ALIYAH (acute kidney injury) ICD Code: N17.9 Status: Acute Assessment and Plan Dementia with behavioral disturbance -Continue Seroquel, Sertraline, Namenda, Aricept -Psychiatry follow-up appreciated; Dillon Act lifted; patient does not meet the criteria for admission to psych. -Patient currently stable. History of hypertension/dyslipidemia/aVR/CAD -Echocardiogram with AV prosthesis -Continue atenolol and Imdur with hold parameters. Clonidine and hydralazine as needed. -Lipitor restarted. -Continue Coumadin. INR goal 2.5-3.0. INR 2.8 today. Pharmacy dosing. Rectus sheath hematoma: Improving -CT abdomen/posterior left rectus sheath hematoma which is stable on repeat CT. -Evaluated by hematology. -Resumed coumadin and will monitor closely. Acute kidney injury: Resolved. -Avoid nephrotoxic drugs -Accurate I/Os -Monitor urine output Anemia/Thrombocytopenia/Coumadin use: -Evaluated by hematology -Received FFP and protamine along with pRBCs -Resumed coumadin -Monitor H/H periodically. Hemoglobin stable. Gram-negative yahaira UTI: treated Hypernatremia: Resolved. Hypokalemia: Resolved. -Monitor periodically and replete as needed. PT evaluate and treat GI PPx: Protonix DVT PPx: SCDs, Coumadin. Discharge Planning CM following. Awaiting Medicaid for placement. Bebe Stinson Oct 13, 2016 12:21
[2016-10-13] MEDS: WARFARIN SOD 3 MG TAB PO SCH (16:49)
[2016-10-13 20:00] VITALS: BP 121/66; PULSE 68; RESP 21; TEMP 97.8; O2SAT 97
[2016-10-13] MEDS: DONEPEZIL HCL 5 MG TAB PO SCH (20:31)
[2016-10-13] MEDS: ATORVASTATIN 40 MG TAB PO SCH (20:31)
[2016-10-14 06:54] LABS: INTERNATIONAL NORMALIZED RATIO 2.6 RATIO
[2016-10-14 08:00] VITALS: BP 140/64; PULSE 75; RESP 19; TEMP 97.1; O2SAT 93
[2016-10-14] MEDS: DOCUSATE SODIUM 100 MG CAP PO SCH ×2 (09:29→20:22)
[2016-10-14] MEDS: ISOSORBIDE MONONITRATE 60 MG TAB PO SCH (09:29)
[2016-10-14] MEDS: SERTRALINE HCL 50 MG TAB PO SCH (09:29)
[2016-10-14] MEDS: MEMANTINE HCL 5 MG TAB PO SCH ×2 (09:29→20:28)
[2016-10-14] MEDS: ATENOLOL 25 MG TAB PO SCH (09:29)
[2016-10-14] MEDS: QUEtiapine FUMARATE 25 MG TAB PO SCH ×2 (09:29→20:22)
--- NOTE | 2016-10-14 10:05 | HHI.PR ---
Subjective Remarks Follow up for dementia. Patient dialing a phone number on the tv remote. Objective Vitals Vital Signs Date Time Temp Pulse Resp B/P Pulse Ox O2 Delivery O2 Flow Rate FiO2 10/14/16 08:00 97.1 75 19 140/64 93 10/13/16 20:00 97.8 68 21 121/66 97 I/O 10/13/16 10/13/16 10/13/16 10/14/16 10/14/16 10/14/16 07:00 15:00 23:00 07:00 15:00 23:00 Intake Total 220 ml 480 ml 120 ml 120 ml Balance 220 ml 480 ml 120 ml 120 ml Intake Oral 220 ml 480 ml 120 ml 120 ml # Voids 2 3 1 1 # Bowel Movements 0 0 Objective Remarks GENERAL: Well-developed, well-nourished patient in no apparent distress. CARDIOVASCULAR: Regular rate and rhythm. RESPIRATORY: No accessory muscle use. Clear to auscultation. Breath sounds equal bilaterally. GASTROINTESTINAL: Abdomen soft, nontender, nondistended. NEUROLOGICAL: Awake and alert. Normal speech. PSYCHIATRIC: Normal mood and affect. Procedures none Urinary Catheter: No Vascular Central Line Catheter: No A/P Problem List: (1) Dementia with behavioral disturbance ICD Code: F03.91 Status: Chronic (2) HTN (hypertension) ICD Code: I10 Status: Chronic (3) CAD (coronary artery disease) ICD Code: I25.10 Status: Chronic (4) Rectus sheath hematoma ICD Code: S30.1XXA Status: Acute (5) ALIYAH (acute kidney injury) ICD Code: N17.9 Status: Acute Assessment and Plan Dementia with behavioral disturbance -Continue Seroquel, Sertraline, Namenda, Aricept -Psychiatry follow-up appreciated; [place] Act lifted; patient does not meet the criteria for admission to psych. -Patient currently stable. History of hypertension/dyslipidemia/aVR/CAD -Echocardiogram with AV prosthesis -Continue atenolol and Imdur with hold parameters. Clonidine and hydralazine as needed. -Lipitor restarted. -Continue Coumadin. INR goal 2.5-3.0. INR 2.6 today. Pharmacy dosing. Rectus sheath hematoma: Improving -CT abdomen/posterior left rectus sheath hematoma which is stable on repeat CT. -Evaluated by hematology. -Resumed coumadin and will monitor closely. Acute kidney injury: Resolved. -Avoid nephrotoxic drugs -Accurate I/Os -Monitor urine output Anemia/Thrombocytopenia/Coumadin use: -Evaluated by hematology -Received FFP and protamine along with pRBCs -Resumed coumadin -Monitor H/H periodically. Hemoglobin stable. Gram-negative yahaira UTI: treated Hypernatremia: Resolved. Hypokalemia: Resolved. -Monitor periodically and replete as needed. PT evaluate and treat GI PPx: Protonix DVT PPx: SCDs, Coumadin. Discharge Planning CM following. Awaiting Medicaid for placement. Bebe Stinson Oct 14, 2016 10:05
[2016-10-14] MEDS: WARFARIN SOD 3 MG TAB PO SCH (16:12)
[2016-10-14 20:00] VITALS: BP 116/66; PULSE 70; RESP 19; TEMP 97.8; O2SAT 98
[2016-10-14] MEDS: DONEPEZIL HCL 5 MG TAB PO SCH (20:24)
[2016-10-14] MEDS: ATORVASTATIN 40 MG TAB PO SCH (20:25)
[2016-10-15 05:46] LABS: INTERNATIONAL NORMALIZED RATIO 2.4 RATIO; PROTHROMBIN TIME - PATIENT 27.6 SEC (9.8-11.6)
[2016-10-15 08:00] VITALS: BP 146/87; PULSE 69; RESP 16; TEMP 97.3; O2SAT 96
[2016-10-15] MEDS: DOCUSATE SODIUM 100 MG CAP PO SCH ×2 (09:11→22:57)
[2016-10-15] MEDS: ISOSORBIDE MONONITRATE 60 MG TAB PO SCH (09:12)
[2016-10-15] MEDS: QUEtiapine FUMARATE 25 MG TAB PO SCH ×2 (09:12→22:57)
[2016-10-15] MEDS: ATENOLOL 25 MG TAB PO SCH (09:12)
[2016-10-15] MEDS: SERTRALINE HCL 50 MG TAB PO SCH (09:12)
[2016-10-15] MEDS: MEMANTINE HCL 5 MG TAB PO SCH ×2 (10:33→22:56)
--- NOTE | 2016-10-15 14:43 | HHI.PR ---
Subjective Remarks Patient seen and examined today. Patient denies any new complaints. No change in clinical status. Patient getting depressed because she wants to go home Objective Vitals Vital Signs Date Time Temp Pulse Resp B/P Pulse Ox O2 Delivery O2 Flow Rate FiO2 10/15/16 08:00 97.3 69 16 146/87 96 10/14/16 20:00 97.8 70 19 116/66 98 I/O 10/14/16 10/14/16 10/14/16 10/15/16 10/15/16 10/15/16 07:00 15:00 23:00 07:00 15:00 23:00 Intake Total 120 ml 480 ml 120 ml 120 ml 320 ml Balance 120 ml 480 ml 120 ml 120 ml 320 ml Intake Oral 120 ml 480 ml 120 ml 120 ml 320 ml # Voids 1 3 1 1 # Bowel Movements 1 Objective Remarks GENERAL: Well-developed, well-nourished, in no acute distress. alert HEENT: Head is normocephalic without any lesions or masses noted. Facial features are symmetric. Eyes: Extraocular muscles are intact. Conjunctivae were clear. NECK: Supple without any masses. Trachea midline no deviation. No JVD, CARDIAC: Regular rhythm, regular rate. S1/S2 are heard. No murmurs gallops or rubs. Obvious valve click LUNGS: Clear to auscultation bilaterally. No wheeze, rhonchi or rales. No use of accessory muscles on inspiration or expiration. ABDOMEN: Soft, nontender. Nondistended. Bowel sounds heard in all 4 quadrants. No organomegaly or masses. Negative rebound, negative guarding EXTREMITIES: No edema, pulses are equal bilaterally. No cyanosis or clubbing NEUROLOGY: Mood and affect appear appropriate. Cranial nerves II through XII grossly intact. Moving all extremities, speech is clear Procedures none Urinary Catheter: No Vascular Central Line Catheter: No A/P Assessment and Plan Dementia with behavioral disturbance -Continue Seroquel, Sertraline, Namenda, Aricept -Psychiatry following patient.; [place] Act lifted; patient does not meet the criteria for admission to psych. Indicated that patient does not have decision- making capacity at this time. Is recommended social welfare clerk needs to notify healthcare proxy to make decisions for the patient. -Patient currently stable. History of hypertension/dyslipidemia/aVR/CAD -Echocardiogram with AV prosthesis -Continue atenolol and Imdur with hold parameters. Clonidine and hydralazine as needed. -Lipitor restarted. -Continue Coumadin. INR goal 2.5-3.0. INR 2.4 today. Pharmacy dosing. Rectus sheath hematoma: Improving -CT abdomen/posterior left rectus sheath hematoma which is stable on repeat CT. -Evaluated by hematology. -Continue on Coumadin and will monitor closely. Acute kidney injury: Resolved. -Avoid nephrotoxic drugs -Accurate I/Os -Monitor urine output Anemia/Thrombocytopenia/Coumadin use: -Evaluated by hematology -Received FFP and protamine along with pRBCs -Resumed Coumadin -Monitor H/H periodically. Hemoglobin stable at 11. DVT PPx: SCDs, Coumadin. Discharge Planning Case management for discharge planning. Patient does not have capacity make her own decisions per psychiatry. Recommending case management to evaluate for healthcare proxy. Jeferson Beltran Oct 15, 2016 14:43
[2016-10-15] MEDS: WARFARIN SOD 3 MG TAB PO SCH (16:53)
[2016-10-15 20:00] VITALS: BP 167/94; PULSE 84; RESP 20; TEMP 97.8; O2SAT 98
[2016-10-15] MEDS: DONEPEZIL HCL 5 MG TAB PO SCH (22:56)
[2016-10-15] MEDS: ATORVASTATIN 40 MG TAB PO SCH (22:57)
[2016-10-16 08:00] VITALS: BP 131/76; PULSE 78; RESP 18; TEMP 97.8; O2SAT 95
[2016-10-16 08:51] LABS: INTERNATIONAL NORMALIZED RATIO 2.5 RATIO; PROTHROMBIN TIME - PATIENT 28.8 SEC (9.8-11.6)
[2016-10-16] MEDS: MEMANTINE HCL 5 MG TAB PO SCH ×2 (09:12→21:12)
[2016-10-16] MEDS: ISOSORBIDE MONONITRATE 60 MG TAB PO SCH (09:13)
[2016-10-16] MEDS: ATENOLOL 25 MG TAB PO SCH (09:13)
[2016-10-16] MEDS: QUEtiapine FUMARATE 25 MG TAB PO SCH ×2 (09:13→21:12)
[2016-10-16] MEDS: DOCUSATE SODIUM 100 MG CAP PO SCH ×2 (09:13→21:12)
[2016-10-16] MEDS: SERTRALINE HCL 50 MG TAB PO SCH (09:13)
--- NOTE | 2016-10-16 10:19 | HHI.PR ---
Subjective Remarks Patient seen and examined today. Patient has any new complaints. Patient only wants to go home. Objective Vitals Vital Signs Date Time Temp Pulse Resp B/P Pulse Ox O2 Delivery O2 Flow Rate FiO2 10/16/16 08:00 97.8 78 18 131/76 95 10/15/16 20:00 97.8 84 20 167/94 98 I/O 10/15/16 10/15/16 10/15/16 10/16/16 10/16/16 10/16/16 07:00 15:00 23:00 07:00 15:00 23:00 Intake Total 120 ml 320 ml 120 ml Balance 120 ml 320 ml 120 ml Intake Oral 120 ml 320 ml 120 ml # Voids 1 2 # Bowel Movements 0 Objective Remarks GENERAL: Well-developed, well-nourished, in no acute distress. alert HEENT: Head is normocephalic without any lesions or masses noted. Facial features are symmetric. Eyes: Extraocular muscles are intact. Conjunctivae were clear. NECK: Supple without any masses. Trachea midline no deviation. No JVD, CARDIAC: Regular rhythm, regular rate. S1/S2 are heard. No murmurs gallops or rubs. Obvious valve click LUNGS: Clear to auscultation bilaterally. No wheeze, rhonchi or rales. No use of accessory muscles on inspiration or expiration. ABDOMEN: Soft, nontender. Nondistended. Bowel sounds heard in all 4 quadrants. No organomegaly or masses. Negative rebound, negative guarding EXTREMITIES: No edema, pulses are equal bilaterally. No cyanosis or clubbing NEUROLOGY: Mood and affect appear appropriate. Cranial nerves II through XII grossly intact. Moving all extremities, speech is clear Procedures none Urinary Catheter: No Vascular Central Line Catheter: No A/P Assessment and Plan Dementia with behavioral disturbance -Continue Seroquel, Sertraline, Namenda, Aricept -Psychiatry following patient.; [place] Act lifted; patient does not meet the criteria for admission to psych. Indicated that patient does not have decision- making capacity at this time. It was recommended social media marketing specialist needs to notify healthcare proxy to make decisions for the patient. -Patient currently stable. History of hypertension/dyslipidemia/aVR/CAD -Echocardiogram with AV prosthesis -Continue atenolol and Imdur with hold parameters. Clonidine and hydralazine as needed. -Lipitor restarted. -Continue Coumadin. INR goal 2.5-3.0. INR 2.5 today. Pharmacy dosing. Rectus sheath hematoma: Resolved -CT abdomen/posterior left rectus sheath hematoma which is stable on repeat CT. -Evaluated by hematology. -Continue on Coumadin and will monitor closely. Acute kidney injury: Resolved. -Avoid nephrotoxic drugs -Accurate I/Os -Monitor urine output Anemia/Thrombocytopenia/Coumadin use: -Evaluated by hematology -Received FFP and protamine along with pRBCs -Resumed Coumadin -Monitor H/H periodically. Hemoglobin stable at 11. DVT PPx: SCDs, Coumadin. Discharge Planning Case management for discharge planning. Patient does not have capacity make her own decisions per psychiatry. Recommending case management to evaluate for healthcare proxy. Case management still trying to find rehabilitation facility that'll accept the patient as of 09/26/16 Jeferson Beltran Oct 16, 2016 10:19
[2016-10-16] MEDS: WARFARIN SOD 3 MG TAB PO SCH (16:58)
[2016-10-16 20:00] VITALS: BP 123/74; PULSE 89; RESP 18; TEMP 98.3; O2SAT 95
[2016-10-16] MEDS: ATORVASTATIN 40 MG TAB PO SCH (21:12)
[2016-10-16] MEDS: DONEPEZIL HCL 5 MG TAB PO SCH (21:12)
[2016-10-17 05:51] LABS: INTERNATIONAL NORMALIZED RATIO 2.5 RATIO; PROTHROMBIN TIME - PATIENT 28.7 SEC (9.8-11.6)
[2016-10-17 08:38] VITALS: BP 137/72; PULSE 66; RESP 19; TEMP 97; O2SAT 97
[2016-10-17] MEDS: DOCUSATE SODIUM 100 MG CAP PO SCH ×2 (09:43→20:26)
[2016-10-17] MEDS: ATENOLOL 25 MG TAB PO SCH (09:43)
[2016-10-17] MEDS: QUEtiapine FUMARATE 25 MG TAB PO SCH ×2 (09:43→20:27)
[2016-10-17] MEDS: ISOSORBIDE MONONITRATE 60 MG TAB PO SCH (09:43)
[2016-10-17] MEDS: SERTRALINE HCL 50 MG TAB PO SCH (09:44)
[2016-10-17] MEDS: MEMANTINE HCL 5 MG TAB PO SCH ×2 (09:44→20:27)
--- NOTE | 2016-10-17 10:29 | HHI.PR ---
Subjective Remarks Patient seen and examined today. Patient denies any new complaints. Patient just wants to go home. Objective Vitals Vital Signs Date Time Temp Pulse Resp B/P Pulse Ox O2 Delivery O2 Flow Rate FiO2 10/17/16 08:38 97.0 66 19 137/72 97 10/16/16 20:00 98.3 89 18 123/74 95 I/O 10/16/16 10/16/16 10/16/16 10/17/16 10/17/16 10/17/16 07:00 15:00 23:00 07:00 15:00 23:00 Intake Total 120 ml 480 ml 460 ml Balance 120 ml 480 ml 460 ml Intake Oral 120 ml 480 ml 460 ml # Voids 2 6 2 # Bowel Movements 0 0 Objective Remarks GENERAL: Well-developed, well-nourished, in no acute distress. alert HEENT: Head is normocephalic without any lesions or masses noted. Facial features are symmetric. Eyes: Extraocular muscles are intact. Conjunctivae were clear. NECK: Supple without any masses. Trachea midline no deviation. No JVD, CARDIAC: Regular rhythm, regular rate. S1/S2 are heard. No murmurs gallops or rubs. Obvious valve click LUNGS: Clear to auscultation bilaterally. No wheeze, rhonchi or rales. No use of accessory muscles on inspiration or expiration. ABDOMEN: Soft, nontender. Nondistended. Bowel sounds heard in all 4 quadrants. No organomegaly or masses. Negative rebound, negative guarding EXTREMITIES: No edema, pulses are equal bilaterally. No cyanosis or clubbing NEUROLOGY: Mood and affect appear appropriate. Cranial nerves II through XII grossly intact. Moving all extremities, speech is clear Procedures none Urinary Catheter: No Vascular Central Line Catheter: No A/P Assessment and Plan Dementia with behavioral disturbance -Continue Seroquel, Sertraline, Namenda, Aricept -Psychiatry following patient.; Dillon Act lifted; patient does not meet the criteria for admission to psych. Indicated that patient does not have decision- making capacity at this time. It was recommended social services counselor needs to notify healthcare proxy to make decisions for the patient. -Patient currently stable. History of hypertension/dyslipidemia/aVR/CAD -Echocardiogram with AV prosthesis -Continue atenolol and Imdur with hold parameters. Clonidine and hydralazine as needed. -Lipitor restarted. -Continue Coumadin. INR goal 2.5-3.0. INR 2.5 today. Pharmacy dosing. Rectus sheath hematoma: Resolved -CT abdomen/posterior left rectus sheath hematoma which is stable on repeat CT. -Evaluated by hematology. -Continue on Coumadin and will monitor closely. Acute kidney injury: Resolved. -Avoid nephrotoxic drugs -Accurate I/Os -Monitor urine output Anemia/Thrombocytopenia/Coumadin use: -Evaluated by hematology -Received FFP and protamine along with pRBCs -Resumed Coumadin -Monitor H/H periodically. Hemoglobin stable at 11. DVT PPx: SCDs, Coumadin. Discharge Planning Case management for discharge planning. Patient does not have capacity make her own decisions per psychiatry. Recommending case management to evaluate for healthcare proxy. Case management still trying to find rehabilitation facility that'll accept the patient as of 09/26/16 Jeferson Beltran Oct 17, 2016 10:29
[2016-10-17] MEDS: WARFARIN SOD 3 MG TAB PO SCH (16:44)
[2016-10-17 20:00] VITALS: BP 140/79; PULSE 70; RESP 20; TEMP 97.5; O2SAT 98
[2016-10-17] MEDS: DONEPEZIL HCL 5 MG TAB PO SCH (20:26)
[2016-10-17] MEDS: ATORVASTATIN 40 MG TAB PO SCH (20:26)
[2016-10-18 06:32] LABS: INTERNATIONAL NORMALIZED RATIO 2.7 RATIO; PROTHROMBIN TIME - PATIENT 31.5 SEC (9.8-11.6)
[2016-10-18 08:00] VITALS: BP 130/79; PULSE 78; RESP 20; TEMP 97.9; O2SAT 97
[2016-10-18] MEDS: MEMANTINE HCL 5 MG TAB PO SCH ×2 (08:20→20:31)
[2016-10-18] MEDS: DOCUSATE SODIUM 100 MG CAP PO SCH ×2 (08:20→20:31)
[2016-10-18] MEDS: ISOSORBIDE MONONITRATE 60 MG TAB PO SCH (08:21)
[2016-10-18] MEDS: ATENOLOL 25 MG TAB PO SCH (08:21)
[2016-10-18] MEDS: QUEtiapine FUMARATE 25 MG TAB PO SCH ×2 (08:21→20:32)
[2016-10-18] MEDS: SERTRALINE HCL 50 MG TAB PO SCH (08:21)
--- NOTE | 2016-10-18 15:21 | HHI.PR ---
Subjective Remarks Patient seen and examined today. Patient denies any new complaints. No change in clinical status. Objective Vitals Vital Signs Date Time Temp Pulse Resp B/P Pulse Ox O2 Delivery O2 Flow Rate FiO2 10/18/16 08:00 97.9 78 20 130/79 97 10/17/16 20:00 97.5 70 20 140/79 98 I/O 10/17/16 10/17/16 10/17/16 10/18/16 10/18/16 10/18/16 07:00 15:00 23:00 07:00 15:00 23:00 Intake Total 460 ml 950 ml 480 ml 240 ml 630 ml Balance 460 ml 950 ml 480 ml 240 ml 630 ml Intake Oral 460 ml 950 ml 480 ml 240 ml 630 ml IV Total 0 ml 0 ml # Voids 2 4 2 3 3 # Bowel Movements 0 1 0 0 Objective Remarks GENERAL: Well-developed, well-nourished, in no acute distress. alert HEENT: Head is normocephalic without any lesions or masses noted. Facial features are symmetric. Eyes: Extraocular muscles are intact. Conjunctivae were clear. NECK: Supple without any masses. Trachea midline no deviation. No JVD, CARDIAC: Regular rhythm, regular rate. S1/S2 are heard. No murmurs gallops or rubs. Obvious valve click LUNGS: Clear to auscultation bilaterally. No wheeze, rhonchi or rales. No use of accessory muscles on inspiration or expiration. ABDOMEN: Soft, nontender. Nondistended. Bowel sounds heard in all 4 quadrants. No organomegaly or masses. Negative rebound, negative guarding EXTREMITIES: No edema, pulses are equal bilaterally. No cyanosis or clubbing NEUROLOGY: Mood and affect appear appropriate. Cranial nerves II through XII grossly intact. Moving all extremities, speech is clear Procedures none Urinary Catheter: No Vascular Central Line Catheter: No A/P Assessment and Plan Dementia with behavioral disturbance -Continue Seroquel, Sertraline, Namenda, Aricept -Psychiatry following patient.; Dillon Act lifted; patient does not meet the criteria for admission to psych. Indicated that patient does not have decision- making capacity at this time. It was recommended social media coordinator needs to notify healthcare proxy to make decisions for the patient. -Patient currently stable. History of hypertension/dyslipidemia/aVR/CAD -Echocardiogram with AV prosthesis -Continue atenolol and Imdur with hold parameters. Clonidine and hydralazine as needed. -Lipitor restarted. -Continue Coumadin. INR goal 2.5-3.0. INR 2.7 today. Pharmacy dosing. Rectus sheath hematoma: Resolved -CT abdomen/posterior left rectus sheath hematoma which is stable on repeat CT. -Evaluated by hematology. -Continue on Coumadin and will monitor closely. Acute kidney injury: Resolved. -Avoid nephrotoxic drugs -Accurate I/Os -Monitor urine output Anemia/Thrombocytopenia/Coumadin use: -Evaluated by hematology -Received FFP and protamine along with pRBCs -Resumed Coumadin -Monitor H/H periodically. Hemoglobin stable at 11. DVT PPx: SCDs, Coumadin. Discharge Planning Case management for discharge planning. Patient does not have capacity make her own decisions per psychiatry. Recommending case management to evaluate for healthcare proxy. Case management still trying to find rehabilitation facility that'll accept the patient as of 09/26/16 Jeferson Beltran Oct 18, 2016 15:21 Shoaib Bullard MD Oct 19, 2016 16:43
[2016-10-18] MEDS: WARFARIN SOD 3 MG TAB PO SCH (16:29)
[2016-10-18 20:00] VITALS: BP 110/78; PULSE 78; RESP 18; TEMP 98.1; O2SAT 97
[2016-10-18] MEDS: ATORVASTATIN 40 MG TAB PO SCH (20:31)
[2016-10-18] MEDS: DONEPEZIL HCL 5 MG TAB PO SCH (20:31)
[2016-10-19 06:13] LABS: INTERNATIONAL NORMALIZED RATIO 3.2 RATIO; PROTHROMBIN TIME - PATIENT 37.5 SEC (9.8-11.6)
[2016-10-19 08:13] VITALS: BP 123/78; PULSE 79; RESP 19; TEMP 97.5; O2SAT 96
[2016-10-19] MEDS: DOCUSATE SODIUM 100 MG CAP PO SCH ×2 (08:27→20:29)
[2016-10-19] MEDS: QUEtiapine FUMARATE 25 MG TAB PO SCH ×2 (08:28→20:29)
[2016-10-19] MEDS: ATENOLOL 25 MG TAB PO SCH (08:28)
[2016-10-19] MEDS: ISOSORBIDE MONONITRATE 60 MG TAB PO SCH (08:28)
[2016-10-19] MEDS: MEMANTINE HCL 5 MG TAB PO SCH ×2 (08:28→20:29)
[2016-10-19] MEDS: SERTRALINE HCL 50 MG TAB PO SCH (08:28)
--- NOTE | 2016-10-19 09:33 | HHI.PR ---
Subjective Remarks Patient seen and examined today. She is getting agitated because she cannot go home. Denies any clinical symptoms Objective Vitals Vital Signs Date Time Temp Pulse Resp B/P Pulse Ox O2 Delivery O2 Flow Rate FiO2 10/19/16 08:13 97.5 79 19 123/78 96 10/18/16 20:00 98.1 78 18 110/78 97 I/O 10/18/16 10/18/16 10/18/16 10/19/16 10/19/16 10/19/16 07:00 15:00 23:00 07:00 15:00 23:00 Intake Total 240 ml 630 ml 480 ml Balance 240 ml 630 ml 480 ml Intake Oral 240 ml 630 ml 480 ml IV Total 0 ml # Voids 3 3 4 # Bowel Movements 0 0 Objective Remarks GENERAL: Well-developed, well-nourished, in no acute distress. alert HEENT: Head is normocephalic without any lesions or masses noted. Facial features are symmetric. Eyes: Extraocular muscles are intact. Conjunctivae were clear. NECK: Supple without any masses. Trachea midline no deviation. No JVD, CARDIAC: Regular rhythm, regular rate. S1/S2 are heard. No murmurs gallops or rubs. Obvious valve click LUNGS: Clear to auscultation bilaterally. No wheeze, rhonchi or rales. No use of accessory muscles on inspiration or expiration. ABDOMEN: Soft, nontender. Nondistended. Bowel sounds heard in all 4 quadrants. No organomegaly or masses. Negative rebound, negative guarding EXTREMITIES: No edema, pulses are equal bilaterally. No cyanosis or clubbing NEUROLOGY: Mood and affect appear appropriate. Cranial nerves II through XII grossly intact. Moving all extremities, speech is clear Procedures none Urinary Catheter: No Vascular Central Line Catheter: No A/P Assessment and Plan Dementia with behavioral disturbance -Continue Seroquel, Sertraline, Namenda, Aricept -Psychiatry following patient.; Dillon Act lifted; patient does not meet the criteria for admission to psych. Indicated that patient does not have decision- making capacity at this time. It was recommended social group worker needs to notify healthcare proxy to make decisions for the patient. -Patient currently stable. History of hypertension/dyslipidemia/aVR/CAD -Echocardiogram with AV prosthesis -Continue atenolol and Imdur with hold parameters. Clonidine and hydralazine as needed. -Lipitor restarted. -Continue Coumadin. INR goal 2.5-3.5. INR 3.2 today. Pharmacy dosing. Rectus sheath hematoma: Resolved -CT abdomen/posterior left rectus sheath hematoma which is stable on repeat CT. -Evaluated by hematology. -Continue on Coumadin and will monitor closely. Acute kidney injury: Resolved. -Avoid nephrotoxic drugs -Accurate I/Os -Monitor urine output Anemia/Thrombocytopenia/Coumadin use: -Evaluated by hematology -Received FFP and protamine along with pRBCs -Resumed Coumadin -Monitor H/H periodically. Hemoglobin stable at 11. DVT PPx: SCDs, Coumadin. Discharge Planning Case management for discharge planning. Patient does not have capacity make her own decisions per psychiatry. Recommending case management to evaluate for healthcare proxy. Case management still trying to find rehabilitation facility that'll accept the patient as of 09/26/16 Jeferson Beltran Oct 19, 2016 09:33 Shoaib Bullard MD Oct 19, 2016 16:42
[2016-10-19 14:30] VITALS: BP 98/62; PULSE 84; RESP 30; TEMP 95.7; O2SAT 100
[2016-10-19 14:58] VITALS: BP 102/61; PULSE 76; RESP 24; TEMP 97.7; O2SAT 99
[2016-10-19 16:00] VITALS: BP 94/69; PULSE 73; RESP 28; TEMP 98.1; O2SAT 98
--- NOTE | 2016-10-19 16:40 | HHI.PR ---
Subjective Remarks Follow-up chest complaints. Patient has been more confused today requesting to go home and was found on the second floor two floors down. She reports her chest is bothering her but denies chest pain, shortness of breath, palpitations , nausea and vomiting. She feels tired. No fever, chills, cough, abdominal pain, UTI symptoms, constipation and diarrhea. Objective Vitals Vital Signs Date Time Temp Pulse Resp B/P Pulse Ox O2 Delivery O2 Flow Rate FiO2 10/19/16 14:58 97.7 76 24 102/61 99 10/19/16 14:30 95.7 84 30 98/62 100 10/19/16 08:13 97.5 79 19 123/78 96 10/18/16 20:00 98.1 78 18 110/78 97 I/O 10/18/16 10/18/16 10/18/16 10/19/16 10/19/16 10/19/16 07:00 15:00 23:00 07:00 15:00 23:00 Intake Total 240 ml 630 ml 480 ml 75 ml Balance 240 ml 630 ml 480 ml 75 ml Intake Oral 240 ml 630 ml 480 ml 75 ml IV Total 0 ml # Voids 3 3 4 3 # Bowel Movements 0 0 0 Objective Remarks GENERAL: 85-year-old female resting in bed in no distress SKIN: Warm and dry. HEAD: Atraumatic. Normocephalic. EYES: Pupils equal and round around 3 mm bilaterally and reactive. No scleral icterus. No injection or drainage. ENT: No nasal bleeding or discharge. Mucous membranes pink and moist. NECK: Trachea midline. No JVD. CARDIOVASCULAR: Regular rate and rhythm. Ejection click heard prior to S2 noted. Pacemaker in place. No chest wall tenderness RESPIRATORY: Clear to auscultation. Decreased Breath sounds equal bilaterally. GASTROINTESTINAL: Abdomen soft, nontender MUSCULOSKELETAL: Extremities bilateral lower extremity nonpitting edema. No obvious deformities. NEUROLOGICAL: Awake and alert. She is following commands. Colombian-speaking. Moving all 4 extremity spontaneously. Procedures none A/P Problem List: (1) Dementia with behavioral disturbance ICD Code: F03.91 Status: Chronic (2) HTN (hypertension) ICD Code: I10 Status: Chronic (3) CAD (coronary artery disease) ICD Code: I25.10 Status: Chronic Assessment and Plan I was requested by patient's RN to evaluate patient because of change in status. She is more confused requesting to go home. She has history of dementia. She was also found wandering. She reports being tired and her chest is bothering her. She denies chest pain, palpitations, shortness of breath, nausea and vomiting. History is limited secondary to language barrier but was interpreted by bottom filler. Vital signs are stable. We'll obtain screening labs, trend cardiac enzymes, EKG and chest x-ray. We'll follow-up workup Shoaib Bullard MD Oct 19, 2016 16:40
--- NOTE | 2016-10-19 16:57 | RADHPO ---
EXAM DATE/TIME: 10/19/2016 16:43 [facility] COMPARISON: No previous studies available for comparison. INDICATIONS : Chest pain. MEDICAL HISTORY : Cardiovascular disease. Dementia. Seizures. Hypertension SURGICAL HISTORY : Pacemaker. ENCOUNTER: Initial ACUITY: 1 day PAIN SCORE: 7/10 LOCATION: Bilateral chest FINDINGS: Cardiomegaly, pacer device and sternotomy wires and clips are noted. There is patient rotation to the right which accentuates the cardiac and mediastinal contour. The aorta is tortuous. CONCLUSION: No acute disease. Forrest Coates MD on October 19, 2016 at 16:56 Board Certified Radiologist. This report was verified electronically.
[2016-10-19 16:58] LABS: AUTOMATED NEUTROPHIL # 4.4 TH/MM3 (1.8-7.7); BASOPHIL # 0.1 TH/MM3 (0-0.2); BASOPHIL % 0.8 % (0.0-2.0); EOSINOPHIL # 0.1 TH/MM3 (0-0.4); EOSINOPHIL % 1.3 % (0.0-4.0); HEMATOCRIT 33.5 % (35.0-46.0); HEMO FLAGS DIFF FINAL; LYMPH % 29.7 % (9.0-44.0); LYMPHOCYTE # 2.2 TH/MM3 (1.0-4.8); MEAN CELL VOLUME 92.9 FL (80.0-100.0); MEAN CORPUSCULAR HEMOGLOBIN 31.3 PG (27.0-34.0); MEAN CORPUSCULAR HGB CONC 33.7 % (32.0-36.0); MONO % 7.1 % (0.0-8.0); NEUT % 61.1 % (16.0-70.0); PLATELET COUNT 208 TH/MM3 (150-450); RED BLOOD COUNT 3.61 MIL/MM3 (4.00-5.30); WHITE BLOOD COUNT 7.3 TH/MM3 (4.0-11.0)
[2016-10-19 17:06] LABS: CHLORIDE 109 MEQ/L (98-107); POTASSIUM 3.5 MEQ/L (3.5-5.1); SODIUM (NA) 144 MEQ/L (136-145)
[2016-10-19 17:10] LABS: ANION GAP 15 MEQ/L (5-15); BICARBONATE 19.8 MEQ/L (21.0-32.0); BLOOD UREA NITROGEN 14 MG/DL (7-18); MAGNESIUM 2.1 MG/DL (1.5-2.5)
[2016-10-19 17:13] LABS: ALT (GPT) 15 U/L (10-53); AST (GOT) 18 U/L (15-37); GLOMERULAR FILTRATION RATE 47 ML/MIN (>89)
[2016-10-19 17:14] LABS: TOTAL BILIRUBIN ADULT 0.4 MG/DL (0.2-1.0)
[2016-10-19 17:15] LABS: ALKALINE PHOSPHATASE 124 U/L (45-117)
[2016-10-19 17:27] LABS: CREATINE KINASE 60 U/L (26-192)
[2016-10-19 18:36] LABS: BLOOD, URINE SMALL (NEG); GLUCOSE,URINE NEG (NEG); KETONE, URINE NEG (NEG); PH, URINE 7.5 (5.0-8.5)
[2016-10-19 18:39] LABS: NITRITE,URINE POS (NEG)
[2016-10-19 18:40] LABS: URINE COLOR STRAW (YELLW/STRAW)
[2016-10-19 18:44] LABS: BACTERIA, URINE MANY /hpf
[2016-10-19 18:45] LABS: COMMENT (UR) CULTURE INDICATED; CULTURE IF INDICATED CULTURE INDICATED; SQUAMOUS EPITHELIAL CELL URINE > 8 /hpf (0-5); WBC, URINE 100-200 /hpf (0-5)
[2016-10-19] MEDS: NS + KCL 20 MEQ INJ 1,000 ML IV SCH (19:36)
[2016-10-19 20:00] VITALS: BP 106/52; PULSE 70; RESP 19; TEMP 97.1; O2SAT 98
[2016-10-19] MEDS: ATORVASTATIN 40 MG TAB PO SCH (20:29)
[2016-10-19] MEDS: DONEPEZIL HCL 5 MG TAB PO SCH (20:29)
[2016-10-19 23:06] VITALS: PULSE 68
[2016-10-20] VITALS (9 sets, daily range): BP systolic 106–142; BP diastolic 64–74; PULSE 60–75; RESP 17–30; TEMP 97.4–98.2; O2SAT 93–99
[2016-10-20 07:11] LABS: INTERNATIONAL NORMALIZED RATIO 2.3 RATIO; PROTHROMBIN TIME - PATIENT 26.9 SEC (9.8-11.6)
[2016-10-20 07:39] LABS: POTASSIUM 3.5 MEQ/L (3.5-5.1)
[2016-10-20 07:42] LABS: BICARBONATE 20.4 MEQ/L (21.0-32.0)
[2016-10-20] MEDS: SULFAMETHOXAZOLE-TRIMETHOPRIM DS 800-160 MG TAB PO SCH ×2 (09:12→20:17)
[2016-10-20] MEDS: MEMANTINE HCL 5 MG TAB PO SCH ×2 (09:13→20:18)
[2016-10-20] MEDS: ISOSORBIDE MONONITRATE 60 MG TAB PO SCH (09:13)
[2016-10-20] MEDS: DOCUSATE SODIUM 100 MG CAP PO SCH ×2 (09:13→20:16)
[2016-10-20] MEDS: ATENOLOL 25 MG TAB PO SCH (09:13)
[2016-10-20] MEDS: QUEtiapine FUMARATE 25 MG TAB PO SCH ×2 (09:13→20:17)
[2016-10-20] MEDS: SERTRALINE HCL 50 MG TAB PO SCH (09:14)
--- NOTE | 2016-10-20 12:36 | HHI.PR ---
Subjective Remarks Patient seen and examined today with Dr. Bullard. Use courtesy van driver to speak with patient. She denies any chest pain, abdominal pain, any weakness or fatigue. Patient only wants to go home. Objective Vitals Vital Signs Date Time Temp Pulse Resp B/P Pulse Ox O2 Delivery O2 Flow Rate FiO2 10/20/16 08:00 98.2 68 17 142/74 95 10/20/16 07:18 75 10/19/16 23:06 68 10/19/16 20:00 97.1 70 19 106/52 98 10/19/16 16:00 98.1 73 28 94/69 98 10/19/16 14:58 97.7 76 24 102/61 99 10/19/16 14:30 95.7 84 30 98/62 100 I/O 10/19/16 10/19/16 10/19/16 10/20/16 10/20/16 10/20/16 07:00 15:00 23:00 07:00 15:00 23:00 Intake Total 480 ml 645 ml 120 ml Output Total 3 ml Balance 480 ml 642 ml 120 ml Intake Oral 480 ml 645 ml 120 ml Output Urine Total 3 ml # Voids 4 5 1 # Bowel Movements 0 1 Result Diagram: 10/19/16 1645 10/20/16 0600 Objective Remarks GENERAL: Well-developed, well-nourished, in no acute distress. alert HEENT: Head is normocephalic without any lesions or masses noted. Facial features are symmetric. Eyes: Extraocular muscles are intact. Conjunctivae were clear. NECK: Supple without any masses. Trachea midline no deviation. No JVD, CARDIAC: Regular rhythm, regular rate. S1/S2 are heard. No murmurs gallops or rubs. Obvious valve click LUNGS: Clear to auscultation bilaterally. No wheeze, rhonchi or rales. No use of accessory muscles on inspiration or expiration. ABDOMEN: Soft, nontender. Nondistended. Bowel sounds heard in all 4 quadrants. No organomegaly or masses. Negative rebound, negative guarding EXTREMITIES: No edema, pulses are equal bilaterally. No cyanosis or clubbing NEUROLOGY: Mood and affect appear appropriate. Cranial nerves II through XII grossly intact. Moving all extremities, speech is clear Procedures none Urinary Catheter: No Vascular Central Line Catheter: No A/P Assessment and Plan Increased confusion state, patient wandering, complaining of chest discomfort, patient no longer complaining of any chest discomfort -Serial cardiac enzymes were performed which did not indicate any signs of acute coronary event -Urinalysis performed which did indicate urinary tract infection Urinary tract infection Patient has history of Escherichia coli infection Start Bactrim DS twice daily Dementia with behavioral disturbance -Continue Seroquel, Sertraline, Namenda, Aricept -Psychiatry following patient.; Dillon Act lifted; patient does not meet the criteria for admission to psych. Indicated that patient does not have decision- making capacity at this time. It was recommended social work specialist needs to notify healthcare proxy to make decisions for the patient. -Patient currently stable. History of hypertension/dyslipidemia/aVR/CAD -Echocardiogram with AV prosthesis -Continue atenolol and Imdur with hold parameters. Clonidine and hydralazine as needed. -Lipitor restarted. -Continue Coumadin. INR goal 2.5-3.5. INR 2.3 today. Pharmacy dosing. Rectus sheath hematoma: Resolved -CT abdomen/posterior left rectus sheath hematoma which is stable on repeat CT. -Evaluated by hematology. -Continue on Coumadin and will monitor closely. Acute kidney injury: Resolved. -Avoid nephrotoxic drugs -Accurate I/Os -Monitor urine output Anemia/Thrombocytopenia/Coumadin use: -Evaluated by hematology -Received FFP and protamine along with pRBCs -Resumed Coumadin -Monitor H/H periodically. Hemoglobin stable at 11. DVT PPx: SCDs, Coumadin. Written by Jeferson Beltran, acting as scribe for Dr. Bullard on 10/20/16 at 12: 35. This note was transcribed by scribe Jeferson Beltran,. I, Dr. Shoaib Bullard personally performed the history, physical exam, and medical decision making; and confirmed the accuracy of the information in the transcribed note. Authenticated by Dr. Shoaib Bullard on 10/20/16 at 12:41. Discharge Planning Case management for discharge planning. Patient does not have capacity make her own decisions per psychiatry. Recommending case management to evaluate for healthcare proxy. Case management still trying to find rehabilitation facility that'll accept the patient as of 09/26/16 Jeferson Beltran Oct 20, 2016 12:36 Shoaib Bullard MD Oct 20, 2016 12:41
[2016-10-20] MEDS ORDERED: WARFARIN SOD 2.5 MG TAB PO SCH (16:00)
--- NOTE | 2016-10-20 16:00 | EKG ---
Date Performed: 10/19/2016 Time Performed: 16:38:58 PTAGE: 85 years EKG: A-V sequential pacemaker. Pacemaker rhythm - no further analysis Abnormal ECG PREVIOUS TRACING : 08/27/2016 09.23 Since previous tracing, no significant change noted DOCTOR: Keven Sears Interpretating Date/Time 10/20/2016 15:58:54
--- NOTE | 2016-10-20 16:02 | EKG ---
Date Performed: 10/19/2016 Time Performed: 22:20:54 PTAGE: 85 years EKG: Ventricular pacing. Pacemaker rhythm - no further analysis Abnormal ECG PREVIOUS TRACING 10/19/2016 16.38.58 Since previous tracing, no significant change noted DOCTOR: Keven Sears Interpretating Date/Time 10/20/2016 16:00:23
--- NOTE | 2016-10-20 16:02 | EKG ---
Date Performed: 10/20/2016 Time Performed: 04:15:54 PTAGE: 85 years EKG: Ventricular pacing Pacemaker rhythm - no further analysis Abnormal ECG PREVIOUS TRACING 10/19/2016 22.20.54 Since previous tracing, no significant change noted DOCTOR: Keven Sears Interpretating Date/Time 10/20/2016 16:00:47
[2016-10-20] MEDS: WARFARIN SOD 2 MG TAB PO SCH (17:04)
[2016-10-20] MEDS: NS + KCL 20 MEQ INJ 1,000 ML IV SCH (17:17)
[2016-10-20] MEDS: NITROGLYCERIN 0.4 MG SL 25 TABS/BTL SL PRN ×2 (19:35→19:43)
[2016-10-20] MEDS ORDERED: POTASSIUM CHLORIDE 20 MEQ CONTROLLED RELEASE TAB PO ONE (20:00)
[2016-10-20] MEDS ORDERED: LORazepam 0.5 MG TAB PO ONE (20:15)
[2016-10-20] MEDS: DONEPEZIL HCL 5 MG TAB PO SCH (20:17)
[2016-10-20] MEDS: ATORVASTATIN 40 MG TAB PO SCH (20:18)
[2016-10-21] VITALS: BP 102/41; PULSE 64; RESP 24; TEMP 97.7; O2SAT 97
[2016-10-21 08:00] VITALS: BP 173/86; PULSE 69; RESP 18; TEMP 95.8; O2SAT 99
[2016-10-21] MEDS: MEMANTINE HCL 5 MG TAB PO SCH ×2 (08:23→21:18)
[2016-10-21] MEDS: SERTRALINE HCL 50 MG TAB PO SCH (08:24)
[2016-10-21] MEDS: ISOSORBIDE MONONITRATE 60 MG TAB PO SCH (08:24)
[2016-10-21] MEDS: ATENOLOL 25 MG TAB PO SCH (08:24)
[2016-10-21] MEDS: DOCUSATE SODIUM 100 MG CAP PO SCH ×2 (08:24→21:18)
[2016-10-21] MEDS: QUEtiapine FUMARATE 25 MG TAB PO SCH ×2 (08:24→21:18)
[2016-10-21] MEDS: SULFAMETHOXAZOLE-TRIMETHOPRIM DS 800-160 MG TAB PO SCH ×2 (08:24→21:17)
[2016-10-21 10:19] LABS: INTERNATIONAL NORMALIZED RATIO 3.1 RATIO; PROTHROMBIN TIME - PATIENT 35.5 SEC (9.8-11.6)
--- NOTE | 2016-10-21 12:08 | HHI.PR ---
Subjective Remarks Patient seen and examined today. Patient absolutely does not indicate that she is experiencing any chest pain. Nursing staff indicates that patient is very anxious. She is getting more emotional about going home. They're requesting that we start using sedation on the patient. I will prefer not to use any sedation in a demented patient. Patient needs to have discharge planning done more aggressively since this is a social issue with family. Objective Vitals Vital Signs Date Time Temp Pulse Resp B/P Pulse Ox O2 Delivery O2 Flow Rate FiO2 10/21/16 08:00 95.8 69 18 173/86 99 10/21/16 08:00 69 10/21/16 00:00 97.7 64 24 102/41 97 10/20/16 20:55 98 Nasal Cannula 2.00 10/20/16 20:00 69 10/20/16 19:51 68 30 121/64 93 10/20/16 19:48 72 28 115/65 94 10/20/16 19:30 97.4 75 28 106/67 99 10/20/16 17:05 60 I/O 10/20/16 10/20/16 10/20/16 10/21/16 10/21/16 10/21/16 07:00 15:00 23:00 07:00 15:00 23:00 Intake Total 120 ml 360 ml 240 ml 480 ml Balance 120 ml 360 ml 240 ml 480 ml Intake Oral 120 ml 360 ml 240 ml 480 ml IV Total 0 ml 0 ml # Voids 1 3 1 3 # Bowel Movements 1 0 0 Result Diagram: 10/19/16 1645 10/20/16 0600 Objective Remarks GENERAL: Well-developed, well-nourished, in no acute distress. alert HEENT: Head is normocephalic without any lesions or masses noted. Facial features are symmetric. Eyes: Extraocular muscles are intact. Conjunctivae were clear. NECK: Supple without any masses. Trachea midline no deviation. No JVD, CARDIAC: Regular rhythm, regular rate. S1/S2 are heard. No murmurs gallops or rubs. Obvious valve click LUNGS: Clear to auscultation bilaterally. No wheeze, rhonchi or rales. No use of accessory muscles on inspiration or expiration. ABDOMEN: Soft, nontender. Nondistended. Bowel sounds heard in all 4 quadrants. No organomegaly or masses. Negative rebound, negative guarding EXTREMITIES: No edema, pulses are equal bilaterally. No cyanosis or clubbing NEUROLOGY: Mood and affect appear appropriate. Cranial nerves II through XII grossly intact. Moving all extremities, speech is clear Procedures none Urinary Catheter: No Vascular Central Line Catheter: No A/P Assessment and Plan Increased confusion state, patient wandering, complaining of chest discomfort, patient no longer complaining of any chest discomfort -Serial cardiac enzymes were performed again, which did not indicate any signs of acute coronary event -Urinalysis performed which did indicate urinary tract infection with Escherichia coli Urinary tract infection Patient has history of Escherichia coli infection Continue Bactrim DS twice daily Dementia with behavioral disturbance -Continue Seroquel, Namenda, Aricept -Increased to Zoloft 50 mg daily -Psychiatry following patient.; Dillon Act lifted; patient does not meet the criteria for admission to psych. Indicated that patient does not have decision- making capacity at this time. It was recommended social service worker needs to notify healthcare proxy to make decisions for the patient. -Patient currently stable. History of hypertension/dyslipidemia/aVR/CAD -Echocardiogram with AV prosthesis -Continue atenolol and Imdur with hold parameters. Clonidine and hydralazine as needed. -Lipitor restarted. -Continue Coumadin. INR goal 2.5-3.5. INR 3.1 today. Pharmacy dosing. Rectus sheath hematoma: Resolved -CT abdomen/posterior left rectus sheath hematoma which is stable on repeat CT. -Evaluated by hematology. -Continue on Coumadin and will monitor closely. Acute kidney injury: Resolved. -Avoid nephrotoxic drugs -Accurate I/Os -Monitor urine output Anemia/Thrombocytopenia/Coumadin use: -Evaluated by hematology -Received FFP and protamine along with pRBCs -Resumed Coumadin -Monitor H/H periodically. Hemoglobin stable at 11. DVT PPx: SCDs, Coumadin. Discharge Planning Case management for discharge planning. Patient does not have capacity make her own decisions per psychiatry. Recommending case management to evaluate for healthcare proxy. Case management still trying to find rehabilitation facility that'll accept the patient as of 09/26/16 Jeferson Beltran Oct 21, 2016 12:08
[2016-10-21] MEDS: HALOPERIDOL 1 MG TAB PO PRN (13:13)
--- NOTE | 2016-10-21 16:17 | EKG ---
Date Performed: 10/20/2016 Time Performed: 20:32:10 PTAGE: 85 years EKG: A-V sequential pacemaker. Pacemaker rhythm - no further analysis When compared to previous tracing, no significant change. Abnormal ECG PREVIOUS TRACING : 10/20/2016 04.15 DOCTOR: Keven Sears Interpretating Date/Time 10/21/2016 16:16:26
--- NOTE | 2016-10-21 16:19 | EKG ---
Date Performed: 10/21/2016 Time Performed: 01:27:14 PTAGE: 85 years EKG: Ventricular pacing. Pacemaker rhythm - no further analysis There is atrial sensing and vent ricular pacing on this tracing, When compared to previous tracing, AV pacemaker continues to Sence an d pace properly. Abnormal ECG PREVIOUS TRACING : 10/20/2016 20.32 DOCTOR: Keven Sears Interpretating Date/Time 10/21/2016 16:18:35
--- NOTE | 2016-10-21 16:20 | EKG ---
Date Performed: 10/21/2016 Time Performed: 09:10:58 PTAGE: 85 years EKG: Dual chamber pacemaker with atrial sensing and ventricular Pacing. Pacemaker rhythm - no fu rther analysis When compared to previous tracing, no significant change. Abnormal ECG PREVIOUS TRACING : 10/21/2016 01.27 DOCTOR: Keven Sears Interpretating Date/Time 10/21/2016 16:19:57
[2016-10-21] MEDS: WARFARIN SOD 2 MG TAB PO SCH (16:41)
[2016-10-21 18:48] VITALS: O2SAT 97
[2016-10-21 20:00] VITALS: BP 114/62; PULSE 68; RESP 20; TEMP 98.1; O2SAT 98
[2016-10-21 20:25] VITALS: O2SAT 98
--- NOTE | 2016-10-21 20:31 | HHI.PYPN ---
Subjective Remarks Patient seen for psychiatric reevaluation, interviewed was performed in primary language Turkmen, she is found laying in her bed, calm and cooperative, pleasantly confused and demented, but able to participate in the conversation and answer must of our questions. She reports good mood, she says she has been trying to go home walking "two streets form here making a right in the corner". She says that today is happy because "I am going home". She denies depressive symptoms, she denies anxiety, danilo and perceptual disturbances. She denies SI/ HI/VH/AH. No agitation, no aggressive behavior, restlessness, paranoia, delusions are observed. Nurse in charge describes some episodes of anxiety and what seen to be panic attacks, with sudden shakiness, chest tightness, SOB, impeding doom. She also had episodes of agitation, restlessness and disorganized behavior, at some point she tried to walk out of the hospital. Review of Systems Other No somatic concern at this moment. Objective Alert: Yes [place]: Person Mood: Calm Affect: Restricted Memory Intact: Immediate Hallucinations: Other Delusions: No Delusion Type: Other (none) Suicidal: Ideation (no SI) Homicidal: Ideation (no SI) Insight/Judgment Poor Labs Test 10/20/16 10/21/16 10/21/16 20:35 02:05 09:00 Troponin I 0.02 NG/ML LESS THAN 0.02 0.02 NG/ML NG/ML Prothrombin Time 35.5 SEC Prothromb Time International 3.1 RATIO Ratio Date/Time Procedure Status Source Growth 10/19/16 18:20 Urine Culture - Final Complete Urine Clean Catch Escherichia Coli Vitals/IOs Vital Signs Date Time Temp Pulse Resp B/P Pulse Ox O2 Delivery O2 Flow Rate FiO2 10/21/16 18:48 97 Nasal Cannula 2.00 10/21/16 08:00 95.8 69 18 173/86 Intake and Output 10/20/16 10/20/16 10/21/16 08:00 16:00 00:00 Intake Total 120 ml 360 ml 240 ml Balance 120 ml 360 ml 240 ml Assessment & Plan Problem List: (1) Dementia with behavioral disturbance Assessment & Plan: Will increased Zoloft to 100 mg hs for anxiety, will move morning Seroquel 25 to nighttime, Seroquel 50 hs to help with nighttime agitation. Brief support provided. Continue Haldol 0.5 mg iv Q12h prn severe agitation. ICD Code: F03.91 Assessment & Plan Estimated LOS: days Justification for Cont. Inpt. No admission needed Meir Samayoa MD Oct 21, 2016 20:31
[2016-10-21] MEDS: DONEPEZIL HCL 5 MG TAB PO SCH (21:17)
[2016-10-21] MEDS: ATORVASTATIN 40 MG TAB PO SCH (21:18)
[2016-10-22 06:14] LABS: INTERNATIONAL NORMALIZED RATIO 4.4 RATIO; PROTHROMBIN TIME - PATIENT 52.5 SEC (9.8-11.6)
[2016-10-22] MEDS: SERTRALINE HCL 50 MG TAB PO SCH (09:00)
[2016-10-22] MEDS: SULFAMETHOXAZOLE-TRIMETHOPRIM DS 800-160 MG TAB PO SCH ×2 (09:00→20:10)
[2016-10-22] MEDS: MEMANTINE HCL 5 MG TAB PO SCH ×2 (09:00→20:11)
[2016-10-22] MEDS ORDERED: SERTRALINE HCL 50 MG TAB PO SCH (09:00)
[2016-10-22] MEDS: ISOSORBIDE MONONITRATE 60 MG TAB PO SCH (09:00)
[2016-10-22] MEDS: ATENOLOL 25 MG TAB PO SCH (09:00)
[2016-10-22] MEDS: DOCUSATE SODIUM 100 MG CAP PO SCH ×2 (09:00→20:10)
[2016-10-22 10:32] VITALS: BP 118/70; PULSE 80; RESP 18; TEMP 97.2; O2SAT 47
--- NOTE | 2016-10-22 11:00 | HHI.PR ---
Subjective Remarks Patient seen and examined today in follow-up for dementia and agitation. Denies any chest pain, stomach pain. Patient had evaluation done by psychiatry yesterday and medications were adjusted. Patient appears to be doing well today. Objective Vitals Vital Signs Date Time Temp Pulse Resp B/P Pulse Ox O2 Delivery O2 Flow Rate FiO2 10/22/16 10:32 97.2 80 18 118/70 47 10/21/16 20:25 98 21 10/21/16 20:00 98.1 68 20 114/62 98 10/21/16 18:48 97 Nasal Cannula 2.00 I/O 10/21/16 10/21/16 10/21/16 10/22/16 10/22/16 10/22/16 07:00 15:00 23:00 07:00 15:00 23:00 Intake Total 480 ml 240 ml 240 ml 60 ml Balance 480 ml 240 ml 240 ml 60 ml Intake Oral 480 ml 240 ml 240 ml 60 ml IV Total 0 ml 0 ml 0 ml # Voids 3 1 3 1 # Bowel Movements 0 0 0 0 Result Diagram: 10/19/16 1645 10/20/16 0600 Objective Remarks GENERAL: Well-developed, well-nourished, in no acute distress. alert HEENT: Head is normocephalic without any lesions or masses noted. Facial features are symmetric. Eyes: Extraocular muscles are intact. Conjunctivae were clear. NECK: Supple without any masses. Trachea midline no deviation. No JVD, CARDIAC: Regular rhythm, regular rate. S1/S2 are heard. No murmurs gallops or rubs. Obvious valve click LUNGS: Clear to auscultation bilaterally. No wheeze, rhonchi or rales. No use of accessory muscles on inspiration or expiration. ABDOMEN: Soft, nontender. Nondistended. Bowel sounds heard in all 4 quadrants. No organomegaly or masses. Negative rebound, negative guarding EXTREMITIES: No edema, pulses are equal bilaterally. No cyanosis or clubbing NEUROLOGY: Mood and affect appear appropriate. Cranial nerves II through XII grossly intact. Moving all extremities, speech is clear Procedures none Urinary Catheter: No Vascular Central Line Catheter: No A/P Assessment and Plan Increased confusion state, patient wandering, complaining of chest discomfort, patient no longer complaining of any chest discomfort -Serial cardiac enzymes were performed again, which did not indicate any signs of acute coronary event -Urinalysis performed which did indicate urinary tract infection with Escherichia coli Urinary tract infection Patient has history of Escherichia coli infection Continue Bactrim DS twice daily Dementia with behavioral disturbance -Continue Namenda, Aricept -Increased to Zoloft 100 mg daily -*Code changed to night dose -Psychiatry following patient.; Dillon Act lifted; patient does not meet the criteria for admission to psych. Indicated that patient does not have decision- making capacity at this time. It was recommended long term care social worker needs to notify healthcare proxy to make decisions for the patient. -Psychiatry reevaluated the patient and recommended doses changes to include Zoloft and changed to Seroquel at night. Continue Haldol as needed for psychotic episodes. History of hypertension/dyslipidemia/aVR/CAD -Echocardiogram with AV prosthesis -Continue atenolol and Imdur with hold parameters. Clonidine and hydralazine as needed. -Lipitor restarted. -On Coumadin. INR goal 2.5-3.5. INR 3.4 today hold coumadin. Pharmacy dosing. Rectus sheath hematoma: Resolved -CT abdomen/posterior left rectus sheath hematoma which is stable on repeat CT. -Evaluated by hematology. -Continue on Coumadin and will monitor closely. Acute kidney injury: Resolved. -Avoid nephrotoxic drugs -Accurate I/Os -Monitor urine output Anemia/Thrombocytopenia/Coumadin use: -Evaluated by hematology -Received FFP and protamine along with pRBCs -Resumed Coumadin -Monitor H/H periodically. Hemoglobin stable at 11. DVT PPx: SCDs, Coumadin. Discharge Planning Case management for discharge planning. Patient does not have capacity make her own decisions per psychiatry. Recommending case management to evaluate for healthcare proxy. Case management still trying to find rehabilitation facility that'll accept the patient as of 09/26/16 Jeferson Beltran Oct 22, 2016 11:00 Shoaib Bullard MD Oct 22, 2016 15:41
[2016-10-22] MEDS: HALOPERIDOL 1 MG TAB PO PRN (15:03)
[2016-10-22] MEDS: WARFARIN SOD 2 MG TAB PO SCH ×2 (15:03→15:59)
[2016-10-22] MEDS: ATORVASTATIN 40 MG TAB PO SCH (15:58)
[2016-10-22 20:00] VITALS: BP 120/60; PULSE 64; RESP 20; TEMP 97.7; O2SAT 95
[2016-10-22] MEDS: DONEPEZIL HCL 5 MG TAB PO SCH (20:10)
[2016-10-22] MEDS: QUEtiapine FUMARATE 25 MG TAB PO SCH (20:10)
[2016-10-23 06:35] LABS: INTERNATIONAL NORMALIZED RATIO 5.1 RATIO
[2016-10-23] MEDS: WARFARIN SOD 2 MG TAB PO SCH (07:13)
[2016-10-23] MEDS: ATENOLOL 25 MG TAB PO SCH (07:48)
[2016-10-23] MEDS: SERTRALINE HCL 50 MG TAB PO SCH (07:48)
[2016-10-23] MEDS: ISOSORBIDE MONONITRATE 60 MG TAB PO SCH (07:48)
[2016-10-23] MEDS: DOCUSATE SODIUM 100 MG CAP PO SCH ×2 (07:48→20:13)
[2016-10-23] MEDS: SULFAMETHOXAZOLE-TRIMETHOPRIM DS 800-160 MG TAB PO SCH (07:48)
[2016-10-23] MEDS: MEMANTINE HCL 5 MG TAB PO SCH ×2 (07:49→20:14)
[2016-10-23 08:00] VITALS: BP 120/60; PULSE 96; RESP 18; TEMP 97.7; O2SAT 96
--- NOTE | 2016-10-23 15:35 | HHI.PR ---
Subjective Remarks Follow-up for dementia. Official video customer resolution specialist utilized. Patient complains of some chest discomfort but states it is very little currently and is on and off. She has had cardiac workup already performed regarding this. She denies any shortness of breath. Denies any dizziness. INR was noted to be elevated at 5.1 today. Patient denies any abdominal pain, hematochezia, or melena. Patient currently on Bactrim for UTI. She admits to chills but denies any fevers. Denies any dysuria, increased urgency, or frequency of urination. Objective Vitals Vital Signs Date Time Temp Pulse Resp B/P Pulse Ox O2 Delivery O2 Flow Rate FiO2 10/23/16 08:00 97.7 96 18 120/60 96 10/22/16 20:00 97.7 64 20 120/60 95 I/O 10/22/16 10/22/16 10/22/16 10/23/16 10/23/16 10/23/16 07:00 15:00 23:00 07:00 15:00 23:00 Intake Total 60 ml 100 ml 240 ml 0 ml 100 ml Balance 60 ml 100 ml 240 ml 0 ml 100 ml Intake Oral 60 ml 100 ml 240 ml 100 ml IV Total 0 ml 0 ml 0 ml # Voids 1 1 1 # Bowel Movements 0 0 Result Diagram: 10/19/16 1645 10/20/16 0600 Objective Remarks GENERAL: Well-developed, well-nourished patient in no apparent distress. CARDIOVASCULAR: Regular rate and rhythm. RESPIRATORY: No accessory muscle use. Clear to auscultation. Breath sounds equal bilaterally. GASTROINTESTINAL: Abdomen soft, nontender, nondistended. NEUROLOGICAL: Awake and alert. Normal speech. PSYCHIATRIC: Normal mood and affect. Procedures none Urinary Catheter: No Vascular Central Line Catheter: No A/P Problem List: (1) Dementia with behavioral disturbance ICD Code: F03.91 Status: Chronic (2) HTN (hypertension) ICD Code: I10 Status: Chronic (3) CAD (coronary artery disease) ICD Code: I25.10 Status: Chronic Assessment and Plan Increased confusion state, patient wandering, complaining of chest discomfort -Serial cardiac enzymes were performed repeatedly, which did not indicate any signs of acute coronary event. Multiple EKGs performed with ventricular pacing; no acute changes from August EKG. Again complains of minor "discomfort" today. -Urinalysis performed which did indicate urinary tract infection with Escherichia coli Urinary tract infection E.coli on culture. Patient has completed Bactrim DS twice daily for 3 days. Will discontinue. Dementia with behavioral disturbance -Continue Seroquel, Sertraline, Namenda, Aricept -Psychiatry follow-up appreciated; Dillon Act lifted; patient does not meet the criteria for admission to psych. -Patient currently stable. History of hypertension/dyslipidemia/aVR/CAD -Echocardiogram with AV prosthesis -Continue atenolol and Imdur with hold parameters. Clonidine and hydralazine as needed. -Lipitor restarted. -Continue Coumadin. INR goal 2.5-3.0. INR 5.1 today, likely attributed to interaction with Bactrim. Will again hold warfarin today and d/c Bactrim. Pharmacy following. No indication for Vitamin K. Rectus sheath hematoma: Improving -CT abdomen/posterior left rectus sheath hematoma which is stable on repeat CT. -Evaluated by hematology. -Resumed coumadin and will monitor closely. Acute kidney injury: Resolved. -Avoid nephrotoxic drugs -Accurate I/Os -Monitor urine output Anemia/Thrombocytopenia/Coumadin use: -Evaluated by hematology -Received FFP and protamine along with pRBCs -Resumed coumadin -Monitor H/H periodically. Hemoglobin stable. Gram-negative yahaira UTI: treated Hypernatremia: Resolved. Hypokalemia: Resolved. -Monitor periodically and replete as needed. PT evaluate and treat GI PPx: Protonix DVT PPx: SCDs, Coumadin. Discharge Planning CM following. Awaiting Medicaid for placement. Bebe Stinson Oct 23, 2016 15:35
--- NOTE | 2016-10-23 15:48 | HHI.PYPN ---
Subjective Remarks Patient was seen for reevaluation, she was found sleeping, but arausable, calm, cooperative and pleasant. Interviewed in Malaysian, patient reports good mood, she says she is happy to be here "with all this wonderful people". At a superficial level patient can have a pleasant conversation, but she needs frequent reorientation. She is pleasantly disoriented and confused, denies depression, anxiety, danilo and perceptual disturbances. She denies SI/HI/VH/AH. No more episodes of sudden anxiety, agitation or aggressive behavior reported. Review of Systems Other no somatic complain Objective Alert: Yes [place]: Person Mood: Calm Affect: Restricted Memory Intact: Immediate Hallucinations: Other Delusions: No Delusion Type: Other (none) Suicidal: Ideation (no SI) Homicidal: Ideation (no SI) Insight/Judgment poor Labs Test 10/23/16 04:40 Prothrombin Time 60.0 SEC Prothromb Time International 5.1 RATIO Ratio Date/Time Procedure Status Source Growth 10/19/16 18:20 Urine Culture - Final Complete Urine Clean Catch Escherichia Coli Vitals/IOs Vital Signs Date Time Temp Pulse Resp B/P Pulse Ox O2 Delivery O2 Flow Rate FiO2 10/23/16 08:00 97.7 96 18 120/60 96 10/21/16 20:25 21 10/21/16 18:48 Nasal Cannula 2.00 Intake and Output 10/22/16 10/22/16 10/23/16 08:00 16:00 00:00 Intake Total 60 ml 100 ml 240 ml Balance 60 ml 100 ml 240 ml Assessment & Plan Problem List: (1) Dementia with behavioral disturbance Assessment & Plan: Continue current medication regiment. No immediate psychiatric intervention needed. ICD Code: F03.91 Assessment & Plan Estimated LOS: days Justification for Cont. Inpt. No psychiatric admission indicated Meir Samayoa MD Oct 23, 2016 15:48
[2016-10-23 20:00] VITALS: BP 121/62; PULSE 70; RESP 19; TEMP 97.7; O2SAT 95
[2016-10-23] MEDS: QUEtiapine FUMARATE 25 MG TAB PO SCH (20:13)
[2016-10-23] MEDS: DONEPEZIL HCL 5 MG TAB PO SCH (20:14)
[2016-10-23] MEDS: ATORVASTATIN 40 MG TAB PO SCH (20:14)
[2016-10-24 05:55] LABS: INTERNATIONAL NORMALIZED RATIO 4.2 RATIO; PROTHROMBIN TIME - PATIENT 49.2 SEC (9.8-11.6)
[2016-10-24 08:00] VITALS: BP 138/75; PULSE 70; RESP 18; TEMP 96.9; O2SAT 99
[2016-10-24] MEDS: ISOSORBIDE MONONITRATE 60 MG TAB PO SCH (09:09)
[2016-10-24] MEDS: SERTRALINE HCL 50 MG TAB PO SCH (09:10)
[2016-10-24] MEDS: ATENOLOL 25 MG TAB PO SCH (09:10)
[2016-10-24] MEDS: DOCUSATE SODIUM 100 MG CAP PO SCH ×2 (09:10→20:24)
[2016-10-24] MEDS: MEMANTINE HCL 5 MG TAB PO SCH ×2 (09:10→20:23)
--- NOTE | 2016-10-24 10:38 | HHI.PR ---
Subjective Remarks Follow up for dementia. Official video development expert utilized. Patient again complains of chest discomfort, not pain, but states she has had this ever since she was a child and again repeats to me that she had a pacemaker placed. Objective Vitals Vital Signs Date Time Temp Pulse Resp B/P Pulse Ox O2 Delivery O2 Flow Rate FiO2 10/24/16 08:00 96.9 70 18 138/75 99 10/23/16 20:00 97.7 70 19 121/62 95 I/O 10/23/16 10/23/16 10/23/16 10/24/16 10/24/16 10/24/16 07:00 15:00 23:00 07:00 15:00 23:00 Intake Total 0 ml 100 ml 600 ml 120 ml Balance 0 ml 100 ml 600 ml 120 ml Intake Oral 100 ml 600 ml 120 ml IV Total 0 ml # Voids 1 5 1 Result Diagram: 10/19/16 1645 10/20/16 0600 Objective Remarks GENERAL: Well-developed, well-nourished patient in no apparent distress. CARDIOVASCULAR: Regular rate and rhythm. RESPIRATORY: No accessory muscle use. Clear to auscultation. Breath sounds equal bilaterally. GASTROINTESTINAL: Abdomen soft, nontender, nondistended. NEUROLOGICAL: Awake and alert. Normal speech. PSYCHIATRIC: Normal mood and affect. Procedures none Urinary Catheter: No Vascular Central Line Catheter: No A/P Problem List: (1) Dementia with behavioral disturbance ICD Code: F03.91 Status: Chronic (2) HTN (hypertension) ICD Code: I10 Status: Chronic (3) CAD (coronary artery disease) ICD Code: I25.10 Status: Chronic Assessment and Plan Increased confusion state, patient wandering, complaining of chest discomfort -Serial cardiac enzymes were performed repeatedly, which did not indicate any signs of acute coronary event. Multiple EKGs performed with ventricular pacing; no acute changes from August EKG. Again complains of minor "discomfort" today. -Urinalysis performed which did indicate urinary tract infection with Escherichia coli Urinary tract infection E.coli on culture. Patient has completed Bactrim DS twice daily for 3 days. Will discontinue. Dementia with behavioral disturbance -Continue Seroquel, Sertraline, Namenda, Aricept -Psychiatry follow-up appreciated; Dillon Act lifted; patient does not meet the criteria for admission to psych. -Patient currently stable. History of hypertension/dyslipidemia/aVR/CAD -Echocardiogram with AV prosthesis -Continue atenolol and Imdur with hold parameters. Clonidine and hydralazine as needed. -Lipitor restarted. -Continue Coumadin. INR goal 2.5-3.0. INR still elevated but improved at 4.2 today; elevation attributed to interaction with Bactrim. Pharmacy following for dosing. Rectus sheath hematoma: Improving -CT abdomen/posterior left rectus sheath hematoma which is stable on repeat CT. -Evaluated by hematology. -Resumed coumadin and will monitor closely. Acute kidney injury: Resolved. -Avoid nephrotoxic drugs -Accurate I/Os -Monitor urine output Anemia/Thrombocytopenia/Coumadin use: -Evaluated by hematology -Received FFP and protamine along with pRBCs -Resumed coumadin -Monitor H/H periodically. Hemoglobin stable. Gram-negative yahaira UTI: treated Hypernatremia: Resolved. Hypokalemia: Resolved. -Monitor periodically and replete as needed. PT evaluate and treat GI PPx: Protonix DVT PPx: SCDs, Coumadin. Discharge Planning CM following. Awaiting Medicaid for placement. Bebe Stinson Oct 24, 2016 10:38
[2016-10-24 20:00] VITALS: BP 136/77; PULSE 64; RESP 20; TEMP 98.3; O2SAT 97
[2016-10-24] MEDS: DONEPEZIL HCL 5 MG TAB PO SCH (20:23)
[2016-10-24] MEDS: QUEtiapine FUMARATE 25 MG TAB PO SCH (20:23)
[2016-10-24] MEDS: ATORVASTATIN 40 MG TAB PO SCH (20:24)
[2016-10-25 06:42] LABS: INTERNATIONAL NORMALIZED RATIO 2.5 RATIO; PROTHROMBIN TIME - PATIENT 28.8 SEC (9.8-11.6)
[2016-10-25 08:00] VITALS: BP 128/76; PULSE 71; RESP 16; TEMP 98; O2SAT 96
[2016-10-25] MEDS: DOCUSATE SODIUM 100 MG CAP PO SCH ×2 (09:00→20:09)
[2016-10-25] MEDS: ATENOLOL 25 MG TAB PO SCH (09:00)
--- NOTE | 2016-10-25 11:13 | HHI.PR ---
Subjective Remarks Follow-up for dementia. Official video crew manager utilized. Patient evaluated with Dr. Dodge. Patient denies any pain. States she is eating okay and slept well. She again tells me that she had a pacemaker placed years ago. Patient does not know the date. She knows her date, but did not know today was her birthday until told. Objective Vitals Vital Signs Date Time Temp Pulse Resp B/P Pulse Ox O2 Delivery O2 Flow Rate FiO2 10/25/16 08:00 98.0 71 16 128/76 96 10/24/16 20:00 98.3 64 20 136/77 97 I/O 10/24/16 10/24/16 10/24/16 10/25/16 10/25/16 10/25/16 07:00 15:00 23:00 07:00 15:00 23:00 Intake Total 120 ml 480 ml 120 ml 120 ml Balance 120 ml 480 ml 120 ml 120 ml Intake Oral 120 ml 480 ml 120 ml 120 ml # Voids 1 2 2 1 # Bowel Movements 0 Objective Remarks GENERAL: Well-developed, well-nourished patient in no apparent distress. CARDIOVASCULAR: Regular rate and rhythm. RESPIRATORY: No accessory muscle use. Clear to auscultation. Breath sounds equal bilaterally. GASTROINTESTINAL: Abdomen soft, nontender, nondistended. NEUROLOGICAL: Awake and alert. Disoriented. Normal speech. PSYCHIATRIC: Normal mood and affect. Procedures none Urinary Catheter: No Vascular Central Line Catheter: No A/P Problem List: (1) Dementia with behavioral disturbance ICD Code: F03.91 Status: Chronic (2) HTN (hypertension) ICD Code: I10 Status: Chronic (3) CAD (coronary artery disease) ICD Code: I25.10 Status: Chronic Assessment and Plan Increased confusion state, patient wandering, complaining of chest discomfort -Serial cardiac enzymes were performed repeatedly, which did not indicate any signs of acute coronary event. Multiple EKGs performed with ventricular pacing; no acute changes from August EKG. Complains of minor "discomfort" at times. -Urinalysis performed which did indicate urinary tract infection with Escherichia coli Urinary tract infection E.coli on culture. Patient has completed Bactrim DS twice daily for 3 days. Will discontinue. Dementia with behavioral disturbance -Continue Seroquel, Sertraline, Namenda, Aricept -Psychiatry follow-up appreciated; Dillon Act lifted; patient does not meet the criteria for admission to psych. -Patient currently stable. No agitation. History of hypertension/dyslipidemia/aVR/CAD -Echocardiogram with AV prosthesis -Continue atenolol and Imdur with hold parameters. Clonidine and hydralazine as needed. -Continue Lipitor. -Continue Coumadin. INR goal 2.5-3.0. INR improved at 2.5 after stopping Bactrim. Rectus sheath hematoma: Improving -CT abdomen/posterior left rectus sheath hematoma which is stable on repeat CT. -Evaluated by hematology. -Resumed coumadin and will monitor closely. Acute kidney injury: Resolved. -Avoid nephrotoxic drugs -Accurate I/Os -Monitor urine output Anemia/Thrombocytopenia/Coumadin use: -Evaluated by hematology -Received FFP and protamine along with pRBCs -Resumed coumadin -Monitor H/H periodically. Hemoglobin stable. Gram-negative yahaira UTI: treated Hypernatremia: Resolved. Hypokalemia: Resolved. -Monitor periodically and replete as needed. PT evaluate and treat GI PPx: Protonix DVT PPx: SCDs, Coumadin. Discharge Planning 10/24: [facility] to evaluate for placement. Bebe Stinson Oct 25, 2016 11:13
[2016-10-25] MEDS: SERTRALINE HCL 50 MG TAB PO SCH (11:49)
[2016-10-25] MEDS: MEMANTINE HCL 5 MG TAB PO SCH ×2 (11:50→20:10)
[2016-10-25] MEDS: ISOSORBIDE MONONITRATE 60 MG TAB PO SCH (11:50)
[2016-10-25] MEDS: WARFARIN SOD 2 MG TAB PO SCH (15:57)
[2016-10-25 20:00] VITALS: BP 147/74; PULSE 75; RESP 22; TEMP 98.2; O2SAT 97
[2016-10-25] MEDS: ATORVASTATIN 40 MG TAB PO SCH (20:09)
[2016-10-25] MEDS: DONEPEZIL HCL 5 MG TAB PO SCH (20:09)
[2016-10-25] MEDS: QUEtiapine FUMARATE 25 MG TAB PO SCH (20:10)
[2016-10-26 06:13] LABS: INTERNATIONAL NORMALIZED RATIO 1.6 RATIO; PROTHROMBIN TIME - PATIENT 18.2 SEC (9.8-11.6)
[2016-10-26 08:00] VITALS: BP 118/70; PULSE 80; RESP 16; TEMP 97; O2SAT 95
[2016-10-26] MEDS: DOCUSATE SODIUM 100 MG CAP PO SCH ×2 (08:02→20:41)
[2016-10-26] MEDS: MEMANTINE HCL 5 MG TAB PO SCH ×2 (08:02→20:40)
[2016-10-26] MEDS: ISOSORBIDE MONONITRATE 60 MG TAB PO SCH (08:02)
[2016-10-26] MEDS: ATENOLOL 25 MG TAB PO SCH (08:02)
[2016-10-26] MEDS: SERTRALINE HCL 50 MG TAB PO SCH (08:03)
--- NOTE | 2016-10-26 10:14 | HHI.PR ---
Subjective Remarks Follow-up for dementia. No acute issues. Patient denies any pain. Objective Vitals Vital Signs Date Time Temp Pulse Resp B/P Pulse Ox O2 Delivery O2 Flow Rate FiO2 10/25/16 20:00 98.2 75 22 147/74 97 I/O 10/25/16 10/25/16 10/25/16 10/26/16 10/26/16 10/26/16 07:00 15:00 23:00 07:00 15:00 23:00 Intake Total 120 ml 420 ml 480 ml 220 ml Balance 120 ml 420 ml 480 ml 220 ml Intake Oral 120 ml 420 ml 480 ml 220 ml # Voids 1 3 2 2 # Bowel Movements 1 0 0 Objective Remarks GENERAL: Well-developed, well-nourished patient in no apparent distress. CARDIOVASCULAR: Regular rate and rhythm. RESPIRATORY: No accessory muscle use. Clear to auscultation. Breath sounds equal bilaterally. GASTROINTESTINAL: Abdomen soft, nontender, nondistended. NEUROLOGICAL: Awake and alert. Normal speech. PSYCHIATRIC: Normal mood and affect. Procedures none Urinary Catheter: No Vascular Central Line Catheter: No A/P Problem List: (1) Dementia with behavioral disturbance ICD Code: F03.91 Status: Chronic (2) HTN (hypertension) ICD Code: I10 Status: Chronic (3) CAD (coronary artery disease) ICD Code: I25.10 Status: Chronic Assessment and Plan Increased confusion state, patient wandering, complaining of chest discomfort -Serial cardiac enzymes were performed repeatedly, which did not indicate any signs of acute coronary event. Multiple EKGs performed with ventricular pacing; no acute changes from August EKG. Complains of minor "discomfort" at times. -Urinalysis performed which did indicate urinary tract infection with Escherichia coli Urinary tract infection E.coli on culture. Patient has completed Bactrim DS twice daily for 3 days. Dementia with behavioral disturbance -Continue Seroquel, Sertraline, Namenda, Aricept -Psychiatry follow-up appreciated; Dillon Act lifted; patient does not meet the criteria for admission to psych. -Patient currently stable. No agitation. History of hypertension/dyslipidemia/aVR/CAD -Echocardiogram with AV prosthesis -Continue atenolol and Imdur with hold parameters. Clonidine and hydralazine as needed. -Continue Lipitor. -Continue Coumadin. INR goal 2.5-3.0. INR 1.6. Pharmacy to dose. Rectus sheath hematoma: Improving -CT abdomen/posterior left rectus sheath hematoma which is stable on repeat CT. -Evaluated by hematology. -Resumed coumadin and will monitor closely. Acute kidney injury: Resolved. -Avoid nephrotoxic drugs -Accurate I/Os -Monitor urine output Anemia/Thrombocytopenia/Coumadin use: -Evaluated by hematology -Received FFP and protamine along with pRBCs -Resumed coumadin -Monitor H/H periodically. Hemoglobin stable. Gram-negative yahaira UTI: treated Hypernatremia: Resolved. Hypokalemia: Resolved. -Monitor periodically and replete as needed. PT evaluate and treat GI PPx: Protonix DVT PPx: SCDs, Coumadin. Discharge Planning 10/24: [facility] to evaluate for placement. Bebe Stinson Oct 26, 2016 10:14 Bebe Stinson Oct 26, 2016 10:14
[2016-10-26] MEDS ORDERED: WARFARIN SOD 2.5 MG TAB PO SCH (16:00)
[2016-10-26 20:00] VITALS: BP 121/59; PULSE 71; RESP 20; TEMP 98; O2SAT 96
[2016-10-26] MEDS: ATORVASTATIN 40 MG TAB PO SCH (20:40)
[2016-10-26] MEDS: DONEPEZIL HCL 5 MG TAB PO SCH (20:41)
[2016-10-26] MEDS: QUEtiapine FUMARATE 25 MG TAB PO SCH (20:41)
[2016-10-27] MEDS: DOCUSATE SODIUM 100 MG CAP PO SCH ×2 (07:53→20:32)
[2016-10-27] MEDS: ISOSORBIDE MONONITRATE 60 MG TAB PO SCH (07:53)
[2016-10-27] MEDS: SERTRALINE HCL 50 MG TAB PO SCH (07:54)
[2016-10-27] MEDS: MEMANTINE HCL 5 MG TAB PO SCH ×2 (07:54→20:32)
[2016-10-27] MEDS: ATENOLOL 25 MG TAB PO SCH (07:54)
[2016-10-27 08:00] VITALS: BP 128/88; PULSE 85; PULSE 99; RESP 19; TEMP 97.8; O2SAT 99
[2016-10-27 08:54] LABS: INTERNATIONAL NORMALIZED RATIO 1.3 RATIO
--- NOTE | 2016-10-27 11:55 | HHI.PR ---
Subjective Remarks Follow-up for dementia. Patient seen and examined with Dr. Dodge. Patient has no pain. Again tells us that she has a pacemaker. Objective Vitals Vital Signs Date Time Temp Pulse Resp B/P Pulse Ox O2 Delivery O2 Flow Rate FiO2 10/27/16 08:00 97.8 99 19 128/88 99 10/26/16 20:00 98.0 71 20 121/59 96 I/O 10/26/16 10/26/16 10/26/16 10/27/16 10/27/16 10/27/16 07:00 15:00 23:00 07:00 15:00 23:00 Intake Total 220 ml 0 ml 1080 ml 240 ml Balance 220 ml 0 ml 1080 ml 240 ml Intake Oral 220 ml 1080 ml 240 ml IV Total 0 ml # Voids 2 6 1 # Bowel Movements 0 1 0 Objective Remarks GENERAL: Well-developed, well-nourished patient in no apparent distress. CARDIOVASCULAR: Regular rate and rhythm. RESPIRATORY: No accessory muscle use. Clear to auscultation. Breath sounds equal bilaterally. GASTROINTESTINAL: Abdomen soft, nontender, nondistended. NEUROLOGICAL: Awake and alert. Normal speech. PSYCHIATRIC: Normal mood and affect. Procedures none Urinary Catheter: No Vascular Central Line Catheter: No A/P Problem List: (1) Dementia with behavioral disturbance ICD Code: F03.91 Status: Chronic (2) HTN (hypertension) ICD Code: I10 Status: Chronic (3) CAD (coronary artery disease) ICD Code: I25.10 Status: Chronic Assessment and Plan Increased confusion state, patient wandering, complaining of chest discomfort -Serial cardiac enzymes were performed repeatedly, which did not indicate any signs of acute coronary event. Multiple EKGs performed with ventricular pacing; no acute changes from August EKG. Complains of minor "discomfort" at times. -Urinalysis performed which did indicate urinary tract infection with Escherichia coli. Urinary tract infection E.coli on culture. Patient has completed Bactrim DS twice daily for 3 days. Dementia with behavioral disturbance -Continue Seroquel, Sertraline, Namenda, Aricept -Psychiatry follow-up appreciated; Dillon Act lifted; patient does not meet the criteria for admission to psych. -Patient required Haldol on 10/21 and 10/22. I was informed by the RN later today that the patient packed up all her bags and was wandering and went to the elevator. She then further carried on and required Haldol. She continues to wander. Sitter is ordered. History of hypertension/dyslipidemia/aVR/CAD -Echocardiogram with AV prosthesis -Continue atenolol and Imdur with hold parameters. Clonidine and hydralazine as needed. -Continue Lipitor. -Continue Coumadin. INR goal 2.5-3.0. INR 1.3. Pharmacy to dose. Rectus sheath hematoma: Improving -CT abdomen/posterior left rectus sheath hematoma which is stable on repeat CT. -Evaluated by hematology. -Resumed coumadin and will monitor closely. Acute kidney injury: Resolved. -Avoid nephrotoxic drugs -Accurate I/Os -Monitor urine output Anemia/Thrombocytopenia/Coumadin use: -Evaluated by hematology -Received FFP and protamine along with pRBCs -Resumed coumadin -Monitor H/H periodically. Hemoglobin stable. Gram-negative yahaira UTI: treated Hypernatremia: Resolved. Hypokalemia: Resolved. -Monitor periodically and replete as needed. PT evaluate and treat GI PPx: Protonix DVT PPx: SCDs, Coumadin. Discharge Planning 10/24: [facility] to evaluate for placement. Bebe Stinson Oct 27, 2016 11:55
[2016-10-27] MEDS: WARFARIN SOD 3 MG TAB PO SCH (15:32)
[2016-10-27] MEDS: HALOPERIDOL 1 MG TAB PO PRN (15:50)
[2016-10-27 19:15] VITALS: BP 162/80; PULSE 67; RESP 24; TEMP 97.4; O2SAT 100
[2016-10-27] MEDS: ATORVASTATIN 40 MG TAB PO SCH (20:32)
[2016-10-27] MEDS: QUEtiapine FUMARATE 25 MG TAB PO SCH (20:33)
[2016-10-27] MEDS: DONEPEZIL HCL 5 MG TAB PO SCH (20:33)
[2016-10-28 08:00] VITALS: BP 141/80; PULSE 71; RESP 18; TEMP 97.7; O2SAT 98
[2016-10-28] MEDS: DOCUSATE SODIUM 100 MG CAP PO SCH ×2 (08:39→20:26)
[2016-10-28] MEDS: ISOSORBIDE MONONITRATE 60 MG TAB PO SCH (08:39)
[2016-10-28] MEDS: ATENOLOL 25 MG TAB PO SCH (08:39)
[2016-10-28] MEDS: SERTRALINE HCL 50 MG TAB PO SCH (08:39)
[2016-10-28] MEDS: MEMANTINE HCL 5 MG TAB PO SCH ×2 (08:40→20:26)
[2016-10-28 08:59] LABS: INTERNATIONAL NORMALIZED RATIO 1.3 RATIO
--- NOTE | 2016-10-28 12:00 | HHI.PR ---
Subjective Remarks Follow-up for dementia. 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 Objective Vitals Vital Signs Date Time Temp Pulse Resp B/P Pulse Ox O2 Delivery O2 Flow Rate FiO2 10/28/16 08:00 97.7 71 18 141/80 98 10/27/16 19:15 97.4 67 24 162/80 100 I/O 10/27/16 10/27/16 10/27/16 10/28/16 10/28/16 10/28/16 07:00 15:00 23:00 07:00 15:00 23:00 Intake Total 240 ml 480 ml 360 ml Balance 240 ml 480 ml 360 ml Intake Oral 240 ml 480 ml 360 ml # Voids 1 4 2 # Bowel Movements 0 0 Objective Remarks GENERAL: Elderly well-developed, well-nourished patient in no apparent distress. CARDIOVASCULAR: Regular rate and rhythm. RESPIRATORY: No accessory muscle use. Clear to auscultation. Breath sounds equal bilaterally. GASTROINTESTINAL: Abdomen soft, nontender, nondistended. NEUROLOGICAL: Awake and alert. Normal speech. PSYCHIATRIC: Normal mood and affect. Procedures none Urinary Catheter: No Vascular Central Line Catheter: No A/P Problem List: (1) Dementia with behavioral disturbance ICD Code: F03.91 Status: Chronic (2) HTN (hypertension) ICD Code: I10 Status: Chronic (3) CAD (coronary artery disease) ICD Code: I25.10 Status: Chronic Assessment and Plan Increased confusion state, patient wandering, complaining of chest discomfort -Serial cardiac enzymes were performed repeatedly, which did not indicate any signs of acute coronary event. Multiple EKGs performed with ventricular pacing; no acute changes from August EKG. Complains of minor "discomfort" at times. -Urinalysis performed which did indicate urinary tract infection with Escherichia coli. Urinary tract infection E.coli on culture. Patient has completed Bactrim DS twice daily for 3 days. Dementia with behavioral disturbance -Continue Seroquel, Sertraline, Namenda, Aricept -Psychiatry follow-up appreciated; Dillon Act lifted; patient does not meet the criteria for admission to psych. -Patient has required Haldol recently for agitation. The patient packed up all her bags and was wandering and went to the elevator yesterday trying to leave. Sitter is now present with patient. History of hypertension/dyslipidemia/aVR/CAD -Echocardiogram with AV prosthesis -Continue atenolol and Imdur with hold parameters. Clonidine and hydralazine as needed. -Continue Lipitor. -Continue Coumadin. INR goal 2.5-3.0. INR 1.3. Pharmacy to dose. -Patient's BP elevated last night and this morning likely due to agitation. Monitor. Rectus sheath hematoma: Improving -CT abdomen/posterior left rectus sheath hematoma which is stable on repeat CT. -Evaluated by hematology. -Resumed coumadin and will monitor closely. Acute kidney injury: Resolved. -Avoid nephrotoxic drugs -Accurate I/Os -Monitor urine output Anemia/Thrombocytopenia/Coumadin use: -Evaluated by hematology -Received FFP and protamine along with pRBCs -Resumed coumadin -Monitor H/H periodically. Hemoglobin stable. Gram-negative yahaira UTI: treated Hypernatremia: Resolved. Hypokalemia: Resolved. -Monitor periodically and replete as needed. PT evaluate and treat GI PPx: Protonix DVT PPx: SCDs, Coumadin. Discharge Planning 10/24: [facility] to evaluate for placement. Bebe Stinson Oct 28, 2016 12:00
[2016-10-28] MEDS: WARFARIN SOD 3 MG TAB PO SCH (15:36)
[2016-10-28] MEDS ORDERED: WARFARIN SOD 1 MG TAB PO SCH (16:00)
[2016-10-28 20:08] VITALS: BP 136/70; PULSE 83; RESP 20; TEMP 97.9; O2SAT 95
[2016-10-28] MEDS: ATORVASTATIN 40 MG TAB PO SCH (20:27)
[2016-10-28] MEDS: DONEPEZIL HCL 5 MG TAB PO SCH (20:27)
[2016-10-28] MEDS: QUEtiapine FUMARATE 25 MG TAB PO SCH (20:27)
[2016-10-29 06:43] LABS: INTERNATIONAL NORMALIZED RATIO 1.3 RATIO
--- NOTE | 2016-10-29 10:47 | HHI.PR ---
Subjective Remarks Follow-up for dementia. Patient's family visited her per RN. Patient seen with Dr. Dodge. Official video engraver apprentice decorative was utilized. Patient denies any pain. She is sleeping and eating. She has no questions for us. Objective Vitals Vital Signs Date Time Temp Pulse Resp B/P Pulse Ox O2 Delivery O2 Flow Rate FiO2 10/28/16 20:08 97.9 83 20 136/70 95 I/O 10/28/16 10/28/16 10/28/16 10/29/16 10/29/16 10/29/16 07:00 15:00 23:00 07:00 15:00 23:00 Intake Total 360 ml 720 ml 480 ml Balance 360 ml 720 ml 480 ml Intake Oral 360 ml 720 ml 480 ml # Voids 2 4 1 # Bowel Movements 0 Objective Remarks GENERAL: Elderly well-developed, well-nourished patient in no apparent distress sitting on side of bed. CARDIOVASCULAR: Regular rate and rhythm. RESPIRATORY: No accessory muscle use. Clear to auscultation. Breath sounds equal bilaterally. GASTROINTESTINAL: Abdomen soft, nontender, nondistended. NEUROLOGICAL: Awake and alert. Normal speech. PSYCHIATRIC: Normal mood and affect. Procedures none Urinary Catheter: No Vascular Central Line Catheter: No A/P Problem List: (1) Dementia with behavioral disturbance ICD Code: F03.91 Status: Chronic (2) HTN (hypertension) ICD Code: I10 Status: Chronic (3) CAD (coronary artery disease) ICD Code: I25.10 Status: Chronic Assessment and Plan Increased confusion state, patient wandering, complaining of chest discomfort -Serial cardiac enzymes were performed repeatedly, which did not indicate any signs of acute coronary event. Multiple EKGs performed with ventricular pacing; no acute changes from August EKG. Complains of minor "discomfort" at times. -Urinalysis performed which did indicate urinary tract infection with Escherichia coli. Urinary tract infection E.coli on culture. Patient has completed Bactrim DS twice daily for 3 days. Dementia with behavioral disturbance -Continue Seroquel, Sertraline, Namenda, Aricept -Psychiatry follow-up appreciated; Dillon Act lifted; patient does not meet the criteria for admission to psych. -Patient has required Haldol recently for agitation. The patient packed up all her bags and was wandering and went to the elevator yesterday trying to leave. Sitter is now present with patient. -10/29: Patient's behavior is improved today likely because her family came to visit. History of hypertension/dyslipidemia/aVR/CAD -Echocardiogram with AV prosthesis -Continue atenolol and Imdur with hold parameters. Clonidine and hydralazine as needed. -Continue Lipitor. -Continue Coumadin. INR goal 2.5-3.0. INR 1.3. Pharmacy to dose. Rectus sheath hematoma: Improving -CT abdomen/posterior left rectus sheath hematoma which is stable on repeat CT. -Evaluated by hematology. -Resumed coumadin and will monitor closely. Acute kidney injury: Resolved. -Avoid nephrotoxic drugs -Accurate I/Os -Monitor urine output Anemia/Thrombocytopenia/Coumadin use: -Evaluated by hematology -Received FFP and protamine along with pRBCs -Resumed coumadin -Monitor H/H periodically. Hemoglobin stable. Gram-negative yahaira UTI: treated Hypernatremia: Resolved. Hypokalemia: Resolved. -Monitor periodically and replete as needed. PT evaluate and treat GI PPx: Protonix DVT PPx: SCDs, Coumadin. Discharge Planning 10/29: I spoke with Cheo Arroyo CM who states he is trying to get patient's insurance changed. [facility] evaluated for placement. Apparently patient's is no longer at home with the family and is at a different facility but he has different insurance from the patient. JOSE A states patient needs locked down dementia unit. If patient cannot get into a SNF, JOSE A is advised to stress to family that they must take her home as she cannot stay permanently in the hospital. Bebe Stinson Oct 29, 2016 10:47
[2016-10-29] MEDS: MEMANTINE HCL 5 MG TAB PO SCH ×2 (12:27→21:12)
[2016-10-29] MEDS: SERTRALINE HCL 50 MG TAB PO SCH (12:27)
[2016-10-29] MEDS: DOCUSATE SODIUM 100 MG CAP PO SCH ×2 (12:28→21:12)
[2016-10-29] MEDS: ATENOLOL 25 MG TAB PO SCH (12:28)
[2016-10-29] MEDS: ISOSORBIDE MONONITRATE 60 MG TAB PO SCH (12:28)
[2016-10-29] MEDS ORDERED: WARFARIN SOD 2 MG TAB PO ONE (16:00)
[2016-10-29] MEDS: WARFARIN SOD 3 MG TAB PO SCH (18:00)
[2016-10-29 20:00] VITALS: BP 107/47; PULSE 64; RESP 20; TEMP 98.7; O2SAT 98
[2016-10-29] MEDS: QUEtiapine FUMARATE 25 MG TAB PO SCH (21:11)
[2016-10-29] MEDS: ATORVASTATIN 40 MG TAB PO SCH (21:13)
[2016-10-29] MEDS: DONEPEZIL HCL 5 MG TAB PO SCH (21:13)
[2016-10-30 06:40] LABS: INTERNATIONAL NORMALIZED RATIO 1.4 RATIO; PROTHROMBIN TIME - PATIENT 16.1 SEC (9.8-11.6)
[2016-10-30 08:00] VITALS: BP 174/77; PULSE 73; RESP 17; TEMP 95.6; O2SAT 98
[2016-10-30] MEDS: ATENOLOL 25 MG TAB PO SCH (09:05)
[2016-10-30] MEDS: DOCUSATE SODIUM 100 MG CAP PO SCH ×2 (09:05→21:39)
[2016-10-30] MEDS: MEMANTINE HCL 5 MG TAB PO SCH ×2 (09:05→21:42)
[2016-10-30] MEDS: ISOSORBIDE MONONITRATE 60 MG TAB PO SCH (09:05)
[2016-10-30] MEDS: SERTRALINE HCL 50 MG TAB PO SCH (09:05)
[2016-10-30] MEDS: HALOPERIDOL 1 MG TAB PO PRN (10:36)
[2016-10-30] MEDS ORDERED: WARFARIN SOD 5 MG TAB PO ONE (12:15)
--- NOTE | 2016-10-30 14:48 | HHI.PR ---
Subjective Remarks Patient seen and examined today for follow-up on dementia. Patient denies any new complaints. Still awaiting case management discharge planning. Objective Vitals Vital Signs Date Time Temp Pulse Resp B/P Pulse Ox O2 Delivery O2 Flow Rate FiO2 10/30/16 08:00 95.6 73 17 174/77 98 10/29/16 20:00 98.7 64 20 107/47 98 I/O 10/29/16 10/29/16 10/29/16 10/30/16 10/30/16 10/30/16 07:00 15:00 23:00 07:00 15:00 23:00 Intake Total 480 ml 480 ml 240 ml Balance 480 ml 480 ml 240 ml Intake Oral 480 ml 480 ml 240 ml # Voids 1 2 2 # Bowel Movements 0 0 Objective Remarks GENERAL: Well-developed, well-nourished, in no acute distress. alert HEENT: Head is normocephalic without any lesions or masses noted. Facial features are symmetric. Eyes: Extraocular muscles are intact. Conjunctivae were clear. NECK: Supple without any masses. Trachea midline no deviation. No JVD, CARDIAC: Regular rhythm, regular rate. S1/S2 are heard. No murmurs gallops or rubs. Obvious valve click LUNGS: Clear to auscultation bilaterally. No wheeze, rhonchi or rales. No use of accessory muscles on inspiration or expiration. ABDOMEN: Soft, nontender. Nondistended. Bowel sounds heard in all 4 quadrants. No organomegaly or masses. Negative rebound, negative guarding EXTREMITIES: No edema, pulses are equal bilaterally. No cyanosis or clubbing NEUROLOGY: Mood and affect appear appropriate. Cranial nerves II through XII grossly intact. Moving all extremities, speech is clear Procedures none Urinary Catheter: No Vascular Central Line Catheter: No A/P Assessment and Plan Dementia with behavioral disturbance -Continue Namenda, Aricept -Zoloft 100 mg daily -Seroquel changed to night dose Haldol as needed -Psychiatry following patient.; Dillon Act lifted; patient does not meet the criteria for admission to psych. Indicated that patient does not have decision- making capacity at this time. It was recommended social work msw needs to notify healthcare proxy to make decisions for the patient. -Psychiatry reevaluated the patient and recommended doses changes to include Zoloft and changed to Seroquel at night. Continue Haldol as needed for psychotic episodes. Consider recommended because of patient wandering Urinary tract infection Patient has history of Escherichia coli infection Completed Bactrim DS twice daily History of hypertension/dyslipidemia/aVR/CAD -Echocardiogram with AV prosthesis -Continue atenolol and Imdur with hold parameters. Clonidine and hydralazine as needed. -Lipitor restarted. -Continue Coumadin. INR goal 2.5-3.5. INR 1.4 today. Pharmacy dosing. Rectus sheath hematoma: Resolved -CT abdomen/posterior left rectus sheath hematoma which is stable on repeat CT. -Evaluated by hematology. -Continue on Coumadin and will monitor closely. Acute kidney injury: Resolved. -Avoid nephrotoxic drugs -Accurate I/Os -Monitor urine output Anemia/Thrombocytopenia/Coumadin use: -Evaluated by hematology -Received FFP and protamine along with pRBCs -Resumed Coumadin -Monitor H/H periodically. Hemoglobin stable at 11. DVT PPx: SCDs, Coumadin. Discharge Planning Case management for discharge planning. Patient does not have capacity make her own decisions per psychiatry. Recommending case management to evaluate for healthcare proxy. Case management still trying to find rehabilitation facility that'll accept the patient as of 09/26/16 Jeferson Beltran Oct 30, 2016 14:48
[2016-10-30] MEDS: WARFARIN SOD 3 MG TAB PO SCH (16:03)
[2016-10-30 20:00] VITALS: BP 121/62; PULSE 60; RESP 20; TEMP 97.5; O2SAT 95
[2016-10-30] MEDS: ATORVASTATIN 40 MG TAB PO SCH (21:39)
[2016-10-30] MEDS: QUEtiapine FUMARATE 25 MG TAB PO SCH (21:39)
[2016-10-30] MEDS: DONEPEZIL HCL 5 MG TAB PO SCH (21:39)
[2016-10-31 05:55] LABS: INTERNATIONAL NORMALIZED RATIO 2.2 RATIO; PROTHROMBIN TIME - PATIENT 24.7 SEC (9.8-11.6)
[2016-10-31 07:51] VITALS: BP 150/64; PULSE 65; RESP 20; TEMP 98.2; O2SAT 97
[2016-10-31] MEDS: ATENOLOL 25 MG TAB PO SCH (07:54)
[2016-10-31] MEDS: SERTRALINE HCL 50 MG TAB PO SCH (07:54)
[2016-10-31] MEDS: DOCUSATE SODIUM 100 MG CAP PO SCH ×2 (07:54→20:14)
[2016-10-31] MEDS: ISOSORBIDE MONONITRATE 60 MG TAB PO SCH (07:54)
[2016-10-31] MEDS: MEMANTINE HCL 5 MG TAB PO SCH ×2 (07:57→20:15)
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
[2016-10-31] MEDS: WARFARIN SOD 3 MG TAB PO SCH (16:32)
[2016-10-31 20:00] VITALS: BP 121/60; PULSE 65; RESP 20; TEMP 98.2; O2SAT 94
[2016-10-31] MEDS: DONEPEZIL HCL 5 MG TAB PO SCH (20:14)
[2016-10-31] MEDS: ATORVASTATIN 40 MG TAB PO SCH (20:14)
[2016-10-31] MEDS: QUEtiapine FUMARATE 25 MG TAB PO SCH (21:00)
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
[2016-11-01 04:58] LABS: INTERNATIONAL NORMALIZED RATIO 3.1 RATIO; PROTHROMBIN TIME - PATIENT 36.3 SEC (9.8-11.6)
[2016-11-01 09:49] VITALS: BP 159/113; PULSE 83; RESP 16; TEMP 98.4; O2SAT 98
[2016-11-01] MEDS: ATENOLOL 25 MG TAB PO SCH (10:13)
[2016-11-01] MEDS: DOCUSATE SODIUM 100 MG CAP PO SCH ×2 (10:13→21:56)
[2016-11-01] MEDS: SERTRALINE HCL 50 MG TAB PO SCH (10:13)
[2016-11-01] MEDS: ISOSORBIDE MONONITRATE 60 MG TAB PO SCH (10:14)
[2016-11-01] MEDS: MEMANTINE HCL 5 MG TAB PO SCH ×2 (10:18→21:56)
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
[2016-11-01] MEDS ORDERED: ZOLO50TA PO (14:31)
[2016-11-01] MEDS ORDERED: QUET1TAB7 PO (14:31)
[2016-11-01] MEDS ORDERED: ATEN25TA PO (14:31)
[2016-11-01] MEDS ORDERED: WALKER WHEELS/F1 MIS (14:32)
--- NOTE | 2016-11-01 14:34 | HHI.FF ---
Face to Face Verification Diagnosis: (1) Dementia with behavioral disturbance Home Health Nursing Order: Medical education Signs/symptoms of disease process Nursing assessment with vital signs Instructions: Need PT/INR management at least every other day until INR 2.53.5, for at least 2 weeks while INR stable then weekly for 3 weeks then monthly. I have seen patient Zarina Garcia on 11/01/16. My clinical findings support the need for the requested home health care services because: Limited ability to care for self Impaired cognition/judgement I certify that my clinical findings support that this patient is homebound because: Impaired cognitive ability/safety Unsafe to leave home unassisted Jeferson Beltran Nov 01, 2016 14:34
[2016-11-01] MEDS: WARFARIN SOD 3 MG TAB PO SCH (17:45)
[2016-11-01] MEDS: HALOPERIDOL 1 MG TAB PO PRN (17:57)
[2016-11-01 20:00] VITALS: BP 121/64; PULSE 68; RESP 20; TEMP 98.5; O2SAT 94
[2016-11-01] MEDS: ATORVASTATIN 40 MG TAB PO SCH (21:56)
[2016-11-01] MEDS: DONEPEZIL HCL 5 MG TAB PO SCH (21:56)
[2016-11-01] MEDS: QUEtiapine FUMARATE 25 MG TAB PO SCH (21:57)
[2016-11-02 05:33] LABS: PROTHROMBIN TIME - PATIENT 34.8 SEC (9.8-11.6)
[2016-11-02 08:00] VITALS: BP 123/60; PULSE 64; RESP 18; TEMP 98.9; O2SAT 95
[2016-11-02] MEDS: ISOSORBIDE MONONITRATE 60 MG TAB PO SCH (08:21)
[2016-11-02] MEDS: ATENOLOL 25 MG TAB PO SCH (08:21)
[2016-11-02] MEDS: MEMANTINE HCL 5 MG TAB PO SCH (08:21)
[2016-11-02] MEDS: DOCUSATE SODIUM 100 MG CAP PO SCH (08:21)
[2016-11-02] MEDS: SERTRALINE HCL 50 MG TAB PO SCH (08:22)
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
== END 2016-11-02 13:00 | disposition home health service (06) | DRG 556 ==
LOC: HIMN 10:03 → N04A 09-01 13:10 → PH5A 09-10 16:46
PROVIDERS: ADMIT Hospitalist; ATTEND Hospitalist
PROC: 30233L1 Transfusion of Nonautologous Fresh Plasma into Peripheral Vein, Percutaneous Approach (ICD-10-PCS; principal; 2016-08-27)
PROC: 30233N1 Transfusion of Nonautologous Red Blood Cells into Peripheral Vein, Percutaneous Approach (ICD-10-PCS; 2016-08-28)
PROC: 30233K1 Transfusion of Nonautologous Frozen Plasma into Peripheral Vein, Percutaneous Approach (ICD-10-PCS; 2016-08-28)
DX: M79.81 Nontraumatic hematoma of soft tissue (principal); N17.9 Acute kidney failure, unspecified; E87.0 Hyperosmolality and hypernatremia; N39.0 Urinary tract infection, site not specified; F03.91 Unspecified dementia, unspecified severity, with behavioral disturbance; D64.9 Anemia, unspecified; I10 Essential (primary) hypertension; E78.5 Hyperlipidemia, unspecified; I25.10 Atherosclerotic heart disease of native coronary artery without angina pectoris; R25.1 Tremor, unspecified; D69.6 Thrombocytopenia, unspecified; R50.9 Fever, unspecified; R00.1 Bradycardia, unspecified; E87.6 Hypokalemia; T45.515A Adverse effect of anticoagulants, initial encounter; F32.9 Major depressive disorder, single episode, unspecified; F41.0 Panic disorder [episodic paroxysmal anxiety]; B96.20 Unspecified Escherichia coli [E. coli] as the cause of diseases classified elsewhere; Z79.01 Long term (current) use of anticoagulants; Z91.83 Wandering in diseases classified elsewhere; Z95.0 Presence of cardiac pacemaker; Z95.1 Presence of aortocoronary bypass graft; Z95.2 Presence of prosthetic heart valve
CPT/HCPCS: 36430; 70450; 71010; 74176; 76937; 80048; 80053; 81001; 82272; 82550; 82552; 82948; 83605; 83735; 83880; 84100; 84132; 84484; 85007; 85014; 85018; 85025; 85027; 85260; 85384; 85610; 85730; 86850; 86900; 86901; 86920; 86927; 87040; 87077; 87086; 87186; 87641; 93005; 93306; 94150; C9113; J0360; J1630; J1644; J1940; J2270; J2720; J3480; J7030; J7050; P9016; P9017

== ENCOUNTER 2017-01-13 14:47 | Emergency (ER) | payer MEDICARE, OTHER ==
[~2017-01-13 14:47] MED LIST changes: -ASPI81CH CHEW; -COUM5TAB PO; -LISI2.5T3 PO; -SERT25TA83 PO; +WALKER WHEELS/F1 MIS; +ZOLO50TA PO
[2017-01-13 15:40] VITALS: BP 161/75; PULSE 82; RESP 20; TEMP 98.8
[2017-01-13] MEDS ORDERED: ASPIRIN 81 MG CHEW TAB PO ONE (15:45)
[2017-01-13] MEDS ORDERED: SODIUM CHLORID 0.9% 500 ML INJ 500 ML IV ONE (15:45)
[2017-01-13] MEDS ORDERED: SODIUM CHLORIDE 0.9% FLUSH 10 ML FLUSH IVF PRN (15:45)
--- NOTE | 2017-01-13 15:47 | PD ---
HPI Chief Complaint: complete injury/chest pain Time Seen by Provider: 15:42 Travel History International Travel<30 days: No Contact w/Intl Traveler<30days: No History of Present Illness HPI 86-year-old female with history of dementia is brought in by EMS status post escaping from her local dementia facility. Patient was out about for almost one hour. EMS was called as the patient was diaphoretic, lethargic, and complaining of some chest discomfort. Patient has a pacemaker and EKG did not show significant ST changes for EMS. Patient was given 500 mL's normal saline bolus and cooled down with some improvement of her symptoms. Patient continues to be somewhat lethargic, and complaining of no further chest discomfort. Further History is difficult to obtain. She has no known drug allergies. PFSH Past Medical History Cancer: No (per pt) Cardiovascular Problems: Yes (per pt has a pace maker) Dementia: Yes Diabetes: No (per pt) Headaches: No (per pt) Hypertension: Yes Immune Disorder: No Psychiatric: No (per pt) Respiratory: No Seizures: No (per pt) : 1 Para: 1 Past Surgical History Cardiac Surgery: Yes (PACEMAKER, MECHANICAL HEART VALVE) Other Surgery: Yes (SURGERY R/T COLON CA) Social History Alcohol Use: No Tobacco Use: No Substance Use: No Allergies-Medications (Allergen,Severity, Reaction): Coded Allergies: No Known Allergies (Unverified , 08/20/16) Reported Meds & Prescriptions Reported Meds & Active Scripts Active Walker with Front Wheels (Device) 1 Mis Mis 1 Ea .ROUTE DIRECTED Atenolol 25 Mg Tab 25 Mg PO DAILY 30 Days Quetiapine (Quetiapine Fumarate) 25 Mg Tab 50 Mg PO HS 30 Days Zoloft (Sertraline HCl) 50 Mg Tab 100 Mg PO DAILY 30 Days Reported Warfarin 3 Mg Tab 3 Mg PO DAILY Isosorbide Mononitrate ER (Isosorbide Mononitrate) 60 Mg Tab 60 Mg PO DAILY Atorvastatin (Atorvastatin Calcium) 40 Mg Tab 40 Mg PO HS Donepezil 10 Mg Tab 10 Mg PO HS Namenda (Memantine) 10 Mg Tab 10 Mg PO BID Review of Systems ROS Limitations: Clinical Condition, Poor Historian Except as stated in HPI: all other systems reviewed are Neg General / Constitutional: No: Fever Eyes: No: Visual changes HENT: No: Headaches Cardiovascular: No: Chest Pain or Discomfort Respiratory: No: Shortness of Breath Gastrointestinal: No: Abdominal Pain Genitourinary: No: Dysuria Musculoskeletal: No: Pain Skin: No Rash Neurologic: No: Weakness Psychiatric: No: Depression Endocrine: No: Polydipsia Hematologic/Lymphatic: No: Easy Bruising Physical Exam Narrative GENERAL: Patient is somewhat lethargic and breathing heavy in mild to moderate distress. She states no discomfort. SKIN: Warm and dry. Normal color. Normal turgor. HEAD: Atraumatic. Normocephalic. Nontender. EYES: Pupils equal and round. No scleral icterus. No injection or drainage. ENT: No nasal bleeding or discharge. Mucous membranes pink and moist. Pharynx is clear. Airway is patent. NECK: Trachea midline. No JVD. Supple and nontender. CARDIOVASCULAR: Regular rate and rhythm. No murmurs gallops or rubs. RESPIRATORY: No accessory muscle use. Clear to auscultation. Breath sounds equal bilaterally. GASTROINTESTINAL: Abdomen soft, non-tender, nondistended. Hepatic and splenic margins not palpable. MUSCULOSKELETAL: Extremities without clubbing, cyanosis, or edema. No obvious deformities. NEUROLOGICAL: Awake and alert. No obvious cranial nerve deficits. Motor grossly within normal limits. Five out of 5 muscle strength in the arms and legs. Normal speech. PSYCHIATRIC: Appropriate mood and affect; insight and judgment normal. Data Data Last Documented VS Vital Signs Date Time Temp Pulse Resp B/P Pulse Ox O2 Delivery O2 Flow Rate FiO2 01/13/17 16:39 74 19 161/75 95 Room Air 01/13/17 15:40 98.8 Orders Electrocardiogram (01/13/17 15:39) Ckmb (Isoenzyme) Profile (01/13/17 15:39) Complete Blood Count With Diff (01/13/17 15:39) Comprehensive Metabolic Panel (01/13/17 15:39) Magnesium (Mg) (01/13/17 15:39) Prothrombin Time / Inr (Pt) (01/13/17 15:39) Act Partial Throm Time (Ptt) (01/13/17 15:39) Troponin I (01/13/17 15:39) Chest, Single Ap (01/13/17 15:39) Ecg Monitoring (01/13/17 15:39) Bilateral Bp Monitoring (01/13/17 15:39) Iv Access Insert/Monitor (01/13/17 15:39) Oximetry (01/13/17 15:39) Oxygen Administration (01/13/17 15:39) Aspirin Chew (Aspirin Chew) (01/13/17 15:45) Sodium Chloride 0.9% Flush (Ns Flush) (01/13/17 15:45) Sodium Chlorid 0.9% 500 Ml Inj (Ns 500 M (01/13/17 15:45) Labs Laboratory Tests Test 01/13/17 15:50 White Blood Count 8.1 TH/MM3 Red Blood Count 3.77 MIL/MM3 Hemoglobin 11.4 GM/DL Hematocrit 35.0 % Mean Corpuscular Volume 92.7 FL Mean Corpuscular Hemoglobin 30.1 PG Mean Corpuscular Hemoglobin 32.5 % Concent Red Cell Distribution Width 14.7 % Platelet Count 206 TH/MM3 Mean Platelet Volume 9.3 FL Neutrophils (%) (Auto) 75.2 % Lymphocytes (%) (Auto) 11.4 % Monocytes (%) (Auto) 9.9 % Eosinophils (%) (Auto) 2.9 % Basophils (%) (Auto) 0.6 % Neutrophils # (Auto) 6.1 TH/MM3 Lymphocytes # (Auto) 0.9 TH/MM3 Monocytes # (Auto) 0.8 TH/MM3 Eosinophils # (Auto) 0.2 TH/MM3 Basophils # (Auto) 0.0 TH/MM3 CBC Comment DIFF FINAL Differential Comment Prothrombin Time 24.2 SEC Prothromb Time International 2.1 RATIO Ratio Activated Partial 32.0 SEC Thromboplast Time Sodium Level 140 MEQ/L Potassium Level 3.8 MEQ/L Chloride Level 108 MEQ/L Carbon Dioxide Level 24.8 MEQ/L Anion Gap 7 MEQ/L Blood Urea Nitrogen 19 MG/DL Creatinine 1.08 MG/DL Estimat Glomerular Filtration 48 ML/MIN Rate Random Glucose 102 MG/DL Calcium Level 8.8 MG/DL Magnesium Level 2.0 MG/DL Total Bilirubin 0.4 MG/DL Aspartate Amino Transf 23 U/L (AST/SGOT) Alanine Aminotransferase 18 U/L (ALT/SGPT) Alkaline Phosphatase 132 U/L Total Creatine Kinase 84 U/L Troponin I 0.02 NG/ML Total Protein 7.0 GM/DL Albumin 3.4 GM/DL MDM Medical Decision Making Medical Screen Exam Complete: Yes Emergency Medical Condition: Yes Differential Diagnosis Heat exhaustion. Chest pain. Electrolyte imbalance. Dehydration. Narrative Course Patient appears medically stable at time of exam. EKG shows pacemaker with abnormal rhythm. Labs ordered including CBC, CMP, cardiac panel. Patient is given an additional 500 mg normal saline bolus. Patient is given 324 mg aspirin by mouth. 1620 hrs. the patient was spoken to with the translation services here at the emergency department, and she stated that she had no pain, no nausea, or any symptoms. She states she felt improved from previous. Patient was ambulated to the bathroom to collect urine. Labs are still pending at this time. Chest x-ray shows no acute process compared to previous. CBC shows mild anemia with hemoglobin 11.4. Otherwise no significant findings. Chemistry shows a chloride of 108, BUN of 19, creatinine of 1.08, GFR 48. Alkaline phosphatase is slightly elevated at 132. Troponin is 0.02 and creatinine kinase is 84. Patient has been noted to be ambulatory to the bathroom 4 times since coming into the emergency department. Patient is reviewed with Dr. Sim. Patient is felt to be stable for discharge to the nursing facility. Patient should follow with her primary care physician. Diagnosis Primary Impression: Heat exhaustion Qualified Code: T67.5XXA - Heat exhaustion, initial encounter Referrals: Primary Care Physician Patient Instructions: General Instructions, Heat Exhaustion (ED) Additional Instructions: Patient is felt to be stable for discharge to the nursing facility. Patient should follow with her primary care physician. Med/Other Pt SpecificInfo: No Change to Meds Disposition: 03 DISCHARGE TO SNF Condition: Stable Michael Tavera Jan 13, 2017 15:47
[2017-01-13 16:39] VITALS: BP 161/75; PULSE 74; RESP 19; O2SAT 95
[2017-01-13 16:40] LABS: AUTOMATED NEUTROPHIL # 6.1 TH/MM3 (1.8-7.7); BASOPHIL % 0.6 % (0.0-2.0); EOSINOPHIL # 0.2 TH/MM3 (0-0.4); EOSINOPHIL % 2.9 % (0.0-4.0); HEMO FLAGS DIFF FINAL; LYMPH % 11.4 % (9.0-44.0); LYMPHOCYTE # 0.9 TH/MM3 (1.0-4.8); MEAN CELL VOLUME 92.7 FL (80.0-100.0); MEAN CORPUSCULAR HEMOGLOBIN 30.1 PG (27.0-34.0); MEAN CORPUSCULAR HGB CONC 32.5 % (32.0-36.0); MONO % 9.9 % (0.0-8.0); NEUT % 75.2 % (16.0-70.0); PLATELET COUNT 206 TH/MM3 (150-450); RED BLOOD COUNT 3.77 MIL/MM3 (4.00-5.30); RED CELL DISTRIBUTION WIDTH 14.7 % (11.6-17.2); WHITE BLOOD COUNT 8.1 TH/MM3 (4.0-11.0)
[2017-01-13 16:42] LABS: INTERNATIONAL NORMALIZED RATIO 2.1 RATIO; PROTHROMBIN TIME - PATIENT 24.2 SEC (9.8-11.6)
--- NOTE | 2017-01-13 16:46 | RADRPT ---
EXAM DATE/TIME: 01/13/2017 15:39 [facility] COMPARISON: CHEST SINGLE AP, October 19, 2016, 16:43. INDICATIONS : Patient with altered mental status who walked away from a facility and recieved heat exposure. MEDICAL HISTORY : Cardiovascular disease. Hypertension Seizures Dementia SURGICAL HISTORY : Pacemaker. CABG. ENCOUNTER: Initial ACUITY: 1 day PAIN SCORE: 0/10 LOCATION: Bilateral chest FINDINGS: A single view of the chest demonstrates the lungs to be symmetrically aerated without evidence of mas s, infiltrate or effusion. Minimal atelectatic changes in the region of the left lingula. Heart size remains prominent a well compensated. Left subclavian bipolar pacer is radiographically intact. Prior CABG with intact median sternotomy wires. Osseous structures are intact. CONCLUSION: 1. Compensated cardiomegaly. 2. Minimal atelectatic changes in the left lingula. Otherwise, no confluent infiltrate. John Vernon MD on January 13, 2017 at 16:43 Board Certified Radiologist. This report was verified electronically.
[2017-01-13 16:55] LABS: ALT (GPT) 18 U/L (10-53)
[2017-01-13 16:56] LABS: ANION GAP 7 MEQ/L (5-15); AST (GOT) 23 U/L (15-37); BICARBONATE 24.8 MEQ/L (21.0-32.0); BLOOD UREA NITROGEN 19 MG/DL (7-18); CHLORIDE 108 MEQ/L (98-107); GLOMERULAR FILTRATION RATE 48 ML/MIN (>89); POTASSIUM 3.8 MEQ/L (3.5-5.1); SODIUM (NA) 140 MEQ/L (136-145)
[2017-01-13 16:59] LABS: ALKALINE PHOSPHATASE 132 U/L (45-117); TOTAL BILIRUBIN ADULT 0.4 MG/DL (0.2-1.0)
[2017-01-13 17:10] LABS: CREATINE KINASE 84 U/L (26-192)
[2017-01-13 18:18] VITALS: BP 184/87
--- NOTE | 2017-01-14 13:20 | EKG ---
Date Performed: 01/13/2017 Time Performed: 15:42:04 PTAGE: 86 years EKG: ELECTRONIC VENTRICULAR PACEMAKER ABNORMAL RHYTHM ECG Compared to prior tracing no significa nt change PREVIOUS TRACING : 10/21/2016 09.10 DOCTOR: Niles Lou Interpretating Date/Time 01/14/2017 13:19:01
== END 2017-01-13 18:23 ==
LOC: NEPE 14:47
DX: T67.5XXA Heat exhaustion, unspecified, initial encounter (principal); F03.90 Unspecified dementia, unspecified severity, without behavioral disturbance, psychotic disturbance, mood disturbance, and anxiety; D64.9 Anemia, unspecified; R53.83 Other fatigue; R94.31 Abnormal electrocardiogram [ECG] [EKG]; Z79.899 Other long term (current) drug therapy; Z79.01 Long term (current) use of anticoagulants; Z79.82 Long term (current) use of aspirin; X30.XXXA Exposure to excessive natural heat, initial encounter
CPT/HCPCS: 71010; 80053; 82550; 83735; 84484; 85025; 85610; 85730; 93005; 96360; 99285; J7040

== ENCOUNTER 2017-03-10 14:12 | Inpatient (IN) | payer MEDICARE, MEDICAID ==
[~2017-03-10] VITALS: Ht 149.9 cm; Wt 51.9 kg
[2017-03-10 14:24] VITALS: BP 138/68; PULSE 60; RESP 16; TEMP 98.7; O2SAT 96
[2017-03-10] MEDS ORDERED: SODIUM CHLOR 0.9% 1000 ML INJ 1,000 ML IV ONE (14:30)
[2017-03-10 14:49] LABS: AUTOMATED NEUTROPHIL # 5.6 TH/MM3 (1.8-7.7); BASOPHIL % 0.4 % (0.0-2.0); EOSINOPHIL # 0.3 TH/MM3 (0-0.4); EOSINOPHIL % 3.6 % (0.0-4.0); HEMATOCRIT 34.3 % (35.0-46.0); HEMO FLAGS DIFF FINAL; LYMPH % 18.6 % (9.0-44.0); LYMPHOCYTE # 1.5 TH/MM3 (1.0-4.8); MEAN CELL VOLUME 93.2 FL (80.0-100.0); MEAN CORPUSCULAR HEMOGLOBIN 30.9 PG (27.0-34.0); MEAN CORPUSCULAR HGB CONC 33.2 % (32.0-36.0); MONO % 8.8 % (0.0-8.0); NEUT % 68.6 % (16.0-70.0); PLATELET COUNT 243 TH/MM3 (150-450); RED BLOOD COUNT 3.68 MIL/MM3 (4.00-5.30); RED CELL DISTRIBUTION WIDTH 15.2 % (11.6-17.2); WHITE BLOOD COUNT 8.2 TH/MM3 (4.0-11.0)
[2017-03-10 14:52] LABS: APTT (PATIENT) 25.4 SEC (24.3-30.1); INTERNATIONAL NORMALIZED RATIO 1.3 RATIO; PROTHROMBIN TIME - PATIENT 15.1 SEC (9.8-11.6)
[2017-03-10 14:57] LABS: ALT (GPT) 20 U/L (10-53)
--- NOTE | 2017-03-10 14:57 | PD ---
HPI Chief Complaint: Hip Injury Time Seen by Provider: 14:22 Travel History International Travel<30 days: No Contact w/Intl Traveler<30days: No Traveled to known affect area: No History of Present Illness HPI PATIENT WAS SENT FROM [place] DUE TO LEFT FEMORAL FRACTURE....PATIENT IS CONFUSED/ DEMENTIA HX, BUT IS NORMALLY AMBULATORY WITHOUT ASSISTANCE, BUT HAS NOT BEEN SINCE FALL. NKDA NO PCP EXCEPT FOR [place] PMHX: DEMENTIA, AFIB, PACEMAKER (ON COUMADIN) PFSH Past Medical History Atrial Fibrillation: Yes Anxiety: Yes Depression: Yes Cancer: No (per pt) Cardiovascular Problems: Yes (per pt has a pace maker) Dementia: Yes Diabetes: No (per pt) Headaches: No (per pt) Hypertension: Yes Immune Disorder: No Psychiatric: No (per pt) Respiratory: No Seizures: No (per pt) ?: Not : 1 Para: 1 Past Surgical History Cardiac Surgery: Yes (PACEMAKER, MECHANICAL HEART VALVE) Pacemaker: Yes Other Surgery: Yes (SURGERY R/T COLON CA) Social History Alcohol Use: No Tobacco Use: No Substance Use: No Allergies-Medications (Allergen,Severity, Reaction): Coded Allergies: No Known Allergies (Unverified , 08/20/16) Reported Meds & Prescriptions Reported Meds & Active Scripts Active Atenolol 25 Mg Tab 25 Mg PO DAILY 30 Days Quetiapine (Quetiapine Fumarate) 25 Mg Tab 50 Mg PO HS 30 Days Zoloft (Sertraline HCl) 50 Mg Tab 100 Mg PO DAILY 30 Days Reported Warfarin 3 Mg Tab 3 Mg PO DAILY Isosorbide Mononitrate ER (Isosorbide Mononitrate) 60 Mg Tab 60 Mg PO DAILY Atorvastatin (Atorvastatin Calcium) 40 Mg Tab 40 Mg PO HS Donepezil 10 Mg Tab 10 Mg PO HS Namenda (Memantine) 10 Mg Tab 10 Mg PO BID Review of Systems ROS Limitations: Other: Except as stated in HPI: all other systems reviewed are Neg Musculoskeletal: Positive: Pain (LLE NEAR LEFT HIP AREA) Physical Exam Narrative GENERAL: DIFFICULT TO ASSESS DUE TO DEMENTIA EVEN WHEN QUESTIONING IN [place]...SPEAKS CLEARLY BUT NONSENSICAL SKIN: Warm and dry. HEAD: Atraumatic. Normocephalic. EYES: Pupils equal and round. No scleral icterus. No injection or drainage. ENT: No nasal bleeding or discharge. Mucous membranes pink and moist. NECK: Trachea midline. No JVD. CARDIOVASCULAR: Regular rate and rhythm. CLICKING SOUND RESPIRATORY: No accessory muscle use. Clear to auscultation. Breath sounds equal bilaterally. GASTROINTESTINAL: Abdomen soft, non-tender, nondistended. MUSCULOSKELETAL: Extremities without clubbing, cyanosis, or edema. No obvious deformities BUT PAIN TO LEFT HIP AREA NEUROLOGICAL: Awake and alert. No obvious cranial nerve deficits. Motor grossly within normal limits. Five out of 5 muscle strength in the arms and legs. Normal speech. PSYCHIATRIC: Appropriate mood and affect; insight and judgment normal. Data Data Last Documented VS Vital Signs Date Time Temp Pulse Resp B/P (MAP) Pulse Ox O2 Delivery O2 Flow Rate FiO2 03/10/17 14:24 98.7 60 16 138/68 (91) 96 Orders Orders Complete Blood Count With Diff (03/10/17 14:22) Comprehensive Metabolic Panel (03/10/17 14:22) Prothrombin Time / Inr (Pt) (03/10/17 14:22) Act Partial Throm Time (Ptt) (03/10/17 14:22) Urinalysis - C+S If Indicated (03/10/17 14:22) Chest, Single Ap (03/10/17 14:22) Hip, Uni(Ap&Lat) W Ap Pelvis (03/10/17 14:22) Iv Access Insert/Monitor (03/10/17 14:22) Urinary Catheter Insert/Apply (03/10/17 14:22) Sodium Chlor 0.9% 1000 Ml Inj (Ns 1000 M (03/10/17 14:30) Ct Pulmonary Angiogram (03/10/17 15:18) Morphine Inj (Morphine Inj) (03/10/17 15:30) Ondansetron Inj (Zofran Inj) (03/10/17 15:30) Ct Pelvis W/O Iv Contrast (03/10/17 ) Urine Culture (03/10/17 15:30) Admit Order (Ed Use Only) (03/10/17 16:14) Labs Laboratory Tests Test 03/10/17 14:20 03/10/17 15:30 White Blood Count 8.2 TH/MM3 Red Blood Count 3.68 MIL/MM3 Hemoglobin 11.4 GM/DL Hematocrit 34.3 % Mean Corpuscular Volume 93.2 FL Mean Corpuscular Hemoglobin 30.9 PG Mean Corpuscular Hemoglobin Concent 33.2 % Red Cell Distribution Width 15.2 % Platelet Count 243 TH/MM3 Mean Platelet Volume 8.7 FL Neutrophils (%) (Auto) 68.6 % Lymphocytes (%) (Auto) 18.6 % Monocytes (%) (Auto) 8.8 % Eosinophils (%) (Auto) 3.6 % Basophils (%) (Auto) 0.4 % Neutrophils # (Auto) 5.6 TH/MM3 Lymphocytes # (Auto) 1.5 TH/MM3 Monocytes # (Auto) 0.7 TH/MM3 Eosinophils # (Auto) 0.3 TH/MM3 Basophils # (Auto) 0.0 TH/MM3 CBC Comment DIFF FINAL Differential Comment Prothrombin Time 15.1 SEC Prothromb Time International Ratio 1.3 RATIO Activated Partial Thromboplast Time 25.4 SEC Blood Urea Nitrogen 30 MG/DL Creatinine 1.31 MG/DL Random Glucose 92 MG/DL Total Protein 6.9 GM/DL Albumin 3.1 GM/DL Calcium Level 8.5 MG/DL Alkaline Phosphatase 132 U/L Aspartate Amino Transf (AST/SGOT) 28 U/L Alanine Aminotransferase (ALT/SGPT) 20 U/L Total Bilirubin 0.3 MG/DL Sodium Level 142 MEQ/L Potassium Level 4.4 MEQ/L Chloride Level 110 MEQ/L Carbon Dioxide Level 25.5 MEQ/L Anion Gap 7 MEQ/L Estimat Glomerular Filtration Rate 39 ML/MIN Urine Color YELLOW Urine Turbidity HAZY Urine pH 5.5 Urine Specific Edison 1.019 Urine Protein TRACE mg/dL Urine Glucose (UA) NEG mg/dL Urine Ketones NEG mg/dL Urine Occult Blood MOD Urine Nitrite POS Urine Bilirubin NEG Urine Urobilinogen LESS THAN 2.0 MG/DL Urine Leukocyte Esterase MOD Urine RBC 34 /hpf Urine WBC 29 /hpf Urine Squamous Epithelial Cells <1 /hpf Urine Bacteria MANY /hpf Urine Hyaline Casts 6 /lpf Urine Mucus FEW /lpf Microscopic Urinalysis Comment CATH-CULTURE IND MDM Medical Decision Making Medical Screen Exam Complete: Yes Emergency Medical Condition: Yes Medical Record Reviewed: Yes Differential Diagnosis LEFT HIP FX V DISLOCATION V SUBLUXATION V PELVIC FX Narrative Course PATIENT WAS NOTED TO HAVE FEMORAL NECK FX ON HIP XRAY, CXR NEG FOR PNA OR PULM EDEMA, HOWEVER PT HAS PULSE OX WITH [employer] IN MID 80'S, PER FAMILY PT IS NOT OXYGEN DEPENDANT Diagnosis Primary Impression: LEFT FEMORAL NECK FRACTURE Admitting Information Admitting Physician Requests: Observation Herminio Floyd MD Mar 10, 2017 14:57
[2017-03-10 15:00] LABS: ALKALINE PHOSPHATASE 132 U/L (45-117); TOTAL BILIRUBIN ADULT 0.3 MG/DL (0.2-1.0)
[2017-03-10 15:02] LABS: ANION GAP 7 MEQ/L (5-15); AST (GOT) 28 U/L (15-37); BICARBONATE 25.5 MEQ/L (21.0-32.0); BLOOD UREA NITROGEN 30 MG/DL (7-18); CHLORIDE 110 MEQ/L (98-107); GLOMERULAR FILTRATION RATE 39 ML/MIN (>89); POTASSIUM 4.4 MEQ/L (3.5-5.1); SODIUM (NA) 142 MEQ/L (136-145)
[2017-03-10] MEDS ORDERED: MORPHINE SULFATE 4 MG/ML INJ IV PUSH ONE (15:30)
[2017-03-10] MEDS ORDERED: ONDANSETRON HCL 4 MG/2 ML VIAL IV PUSH ONE (15:30)
--- NOTE | 2017-03-10 15:35 | RADRPT ---
EXAM DATE/TIME: 03/10/2017 14:54 [facility] COMPARISON: CHEST SINGLE AP, January 13, 2017, 15:39. INDICATIONS : Chest pains mid sternal into left lateral chest. MEDICAL HISTORY : Myocardial infarction. Congestive heart failure. SURGICAL HISTORY : Pacemaker. CABG. ENCOUNTER: Initial ACUITY: 2 days PAIN SCORE: 10/10 LOCATION: Bilateral chest FINDINGS: A single view of the chest demonstrates the lungs to be symmetrically aerated without evidence of mas s, infiltrate or effusion. Sternal wires and previous bypass. Mild left ventricle prominence withou t failure. Pacemaker on the left. Osseous structures are intact. CONCLUSION: No acute disease. Levi Delaney MD FACR on March 10, 2017 at 15:33 Board Certified Radiologist. This report was verified electronically.
--- NOTE | 2017-03-10 15:36 | RADRPT ---
EXAM DATE/TIME: 03/10/2017 14:51 [facility] COMPARISON: No previous studies available for comparison. INDICATIONS : Pain left hip, unable to rotate or weight bear x5 days. MEDICAL HISTORY : Myocardial infarction. Congestive heart failure. SURGICAL HISTORY : CABG. Pacemaker. ENCOUNTER: Initial ACUITY: 4 - 6 days PAIN SCORE: 10/10 LOCATION: Left hip FINDINGS: Impacted femoral neck fracture is suspected. CT scan would be of benefit. CONCLUSION: Probable femoral neck fracture. CT scan would be of benefit. Levi Delaney MD FACR on March 10, 2017 at 15:33 Board Certified Radiologist. This report was verified electronically.
[2017-03-10 16:02] LABS: BACTERIA, URINE MANY /hpf; BLOOD, URINE MOD (NEG); COMMENT (UR) CATH-CULTURE IND; CULTURE IF INDICATED CATH CULTURE IND; GLUCOSE,URINE NEG (NEG); HYALINE CAST, URINE 6 /lpf (RARE); KETONE, URINE NEG (NEG); MUCUS URINE FEW /lpf (OCC); NITRITE,URINE POS (NEG); PH, URINE 5.5 (5.0-8.5); SQUAMOUS EPITHELIAL CELL URINE <1 /hpf (0-5); URINE COLOR YELLOW (YELLW/STRAW)
[2017-03-10] MEDS ORDERED: IODIXANOL 320 MG/ML 10 ML VIAL (for Rad CT) IV ONE (16:21)
--- NOTE | 2017-03-10 16:24 | RADRPT ---
EXAM DATE/TIME: 03/10/2017 15:51 [facility] COMPARISON: HIP LEFT (AP&LAT 2/3VWS) W AP PELVIS, March 10, 2017, 14:51. INDICATIONS : Trauma; fall, left pain ORAL CONTRAST: No oral contrast ingested. RADIATION DOSE: 12.13 CTDIvol (mGy) MEDICAL HISTORY : Cardiovascular disease. Dementia. Hypertension. SURGICAL HISTORY : None. ENCOUNTER: Initial ACUITY: 1 day PAIN SCALE: 5/10 LOCATION: Left pelvis TECHNIQUE: Volumetric scanning of the pelvis was performed. Using automated exposure control and adjustment of the mA and/or kV according to patient size, radiation dose was kept as low as reasonably achievable t o obtain optimal diagnostic quality images. DICOM format image data is available electronically for review and comparison. FINDINGS: BOWEL/MESENTERY: The visualized small and large bowel demonstrate no acute abnormality. Multiple diverticuli are prese nt. There is no free fluid. BLADDER: A Spencer catheter is present within the bladder. RETROPERITONEUM: There is no aneurysm or lymphadenopathy. REPRODUCTIVE: Within normal limits. INGUINAL: There is no lymphadenopathy or hernia. MUSCULOSKELETAL: There is diffuse osteopenia. There is a subtle subcapital minimally impacted fracture which is nondis placed. The acetabulum is intact. The intertrochanteric region is intact as well. The pubic rami are within normal limits. The sacrum is unremarkable. Degenerative disc changes are present in the lumbar spine disc space narrowing and mild hypertrophic change. CONCLUSION: 1. Subtle slightly impacted subcapital left hip fracture. 2. Osteopenia and degenerative change in the lumbar spine. 3. Diverticulosis. Ruben Dalton MD on March 10, 2017 at 16:18 Board Certified Radiologist. This report was verified electronically.
--- NOTE | 2017-03-10 16:28 | RADRPT ---
EXAM DATE/TIME: 03/10/2017 15:44 [facility] COMPARISON: CT PELVIS W/O CONTRAST, March 10, 2017, 15:51. INDICATIONS : Shortness of breath. IV CONTRAST: 50 cc Visipaque (iodixanol) IV RADIATION DOSE: 1.31 CTDIvol (mGy) MEDICAL HISTORY : Cardiovascular disease. Hypertension. Dementia. SURGICAL HISTORY : None. ENCOUNTER: Initial ACUITY: 1 day PAIN SCALE: 4/10 LOCATION: Bilateral chest TECHNIQUE: Volumetric scanning of the chest was performed using a pulmonary embolism protocol MIP images were re constructed. Using automated exposure control and adjustment of the mA and/or kV according to patien t size, radiation dose was kept as low as reasonably achievable to obtain optimal diagnostic quality images. DICOM format image data is available electronically for review and comparison. Follow-up recommendations for detected pulmonary nodules are based at a minimum on nodule size and pa tient risk factors according to Fleischner Society Guidelines. FINDINGS: Minimal bibasilar parenchymal changes are evident. There is cardiomegaly with moderate coronary calcifications. There is minimal dilatation of the asce nding aorta, dilated to 4.4 CM. Sternal wires and previous bypass are noted. There is no evidence for central pulmonary emboli There is reflux of contrast into the hepatic veins suggesting pulmonary hypertension. There is no axillary adenopathy. There is no mediastinal adenopathy. Portable liver as identified are free of focal defects. CONCLUSION: Cardiomegaly with reflux into the hepatic veins. There is no central pulmonary emboli. Minimal aneurysmal dilatation descending aorta. Levi Delaney MD FACR on March 10, 2017 at 16:23 Board Certified Radiologist. This report was verified electronically.
[2017-03-10] MEDS ORDERED: SENNOSIDES 8.6 MG TAB PO PRN (16:30)
[2017-03-10] MEDS ORDERED: SODIUM CHLORIDE 0.9% FLUSH 10 ML FLUSH IV FLUSH PRN (16:30)
[2017-03-10] MEDS ORDERED: NALOXONE HCL 0.4 MG/ML AMP IV PRN (16:30)
[2017-03-10] MEDS ORDERED: LACTULOSE SYRUP 20 GM/30 ML CUP PO PRN (16:30)
[2017-03-10] MEDS ORDERED: ACETAMINOPHEN 325 MG TAB PO PRN ×2 (16:30)
[2017-03-10] MEDS ORDERED: PROCHLORPERAZINE 25 MG SUPP RECTAL PRN (16:30)
[2017-03-10] MEDS ORDERED: BISACODYL 10 MG SUPP RECTAL PRN (16:30)
[2017-03-10] MEDS ORDERED: ONDANSETRON HCL 4 MG/2 ML VIAL IVP PRN (16:30)
[2017-03-10] MEDS ORDERED: MAGNESIUM HYDROXIDE SUSP 30 ML CUP PO PRN (16:30)
[2017-03-10 17:18] VITALS: BP 161/70; PULSE 65; RESP 17; O2SAT 95
[2017-03-10] MEDS ORDERED: HEPARIN SODIUM - IV 10,000 UNITS/10 ML VIAL IV ONE (17:45)
--- NOTE | 2017-03-10 17:45 | HHI.HP ---
[facility] Service [facility] Primary Care Physician Rip Martinez MD Admission Diagnosis LEFT FEMORAL NECK FX, PACED RHYTHM Diagnoses: (1) Fracture of femoral neck, left Diagnosis: Principal (2) Mechanical heart valve present Diagnosis: Principal (3) Atrial fibrillation Diagnosis: Secondary (4) Pacemaker Diagnosis: Secondary (5) Aortic valve replaced Diagnosis: Principal (6) Hx of CABG Diagnosis: Secondary (7) Dementia with behavioral disturbance Diagnosis: Secondary (8) HTN (hypertension) Diagnosis: Secondary (9) CAD (coronary artery disease) Diagnosis: Secondary (10) ALIYAH (acute kidney injury) Diagnosis: Secondary Chief Complaint: Hip injury Travel History International Travel<30 Days: No Contact w/Intl Traveler <30 Da: No Traveled to Known Affected Are: No History of Present Illness Patient is a 86-year-old retirement patient. Who presented to the emergency department with pain in the left hip. Patient was found to have a left femoral neck fracture. Patient is confused and demented. Patient is normally similarly somewhat ambulatory without assistance has not been moving for the last 4 days since her fall Patient was brought to the emergency department for evaluation of her left femoral neck fracture will undergo go evaluation with orthopedic surgery and will keep her nothing by mouth in case surgery is tomorrow Patient is supposed to have a mechanical valve. For which she supposed to be on chronic Coumadin but is subtherapeutic at this time will hold this so that she can have surgery as soon as possible We'll started on a heparin drip that can be discontinued once surgery decide when to take her to fix the hip Review of Systems ROS Limitations: Altered Mental Status, Language Barrier Past Family Social History Past Medical History Atrial fibrillation Dementia Chronic pacemaker Chronic aortic valve mechanical/ history of CABG Anxiety depression Hypertension Coronary artery disease Colon cancer per chart review Past Surgical History Pacemaker Mechanical aortic valve Surgery to right colon Reported Medications Reported Meds & Active Scripts Active Atenolol 25 Mg Tab 25 Mg PO DAILY 30 Days Quetiapine (Quetiapine Fumarate) 25 Mg Tab 50 Mg PO HS 30 Days Zoloft (Sertraline HCl) 50 Mg Tab 100 Mg PO DAILY 30 Days Reported Warfarin 3 Mg Tab 3 Mg PO DAILY Isosorbide Mononitrate ER (Isosorbide Mononitrate) 60 Mg Tab 60 Mg PO DAILY Atorvastatin (Atorvastatin Calcium) 40 Mg Tab 40 Mg PO HS Donepezil 10 Mg Tab 10 Mg PO HS Namenda (Memantine) 10 Mg Tab 10 Mg PO BID Allergies: Coded Allergies: No Known Allergies (Unverified , 08/20/16) Active Ordered Medications Current Medications Sodium Chloride 1,000 ml @ 150 mls/hr ONCE ONCE IV Last administered on 15:19; Start 03/10/17 at 14:30; Stop 03/10/17 at 21:09 Morphine Sulfate (Morphine Inj) 2 mg ONCE ONCE IV PUSH Last administered on 15:35; Start 03/10/17 at 15:30; Stop 03/10/17 at 15:31; Status DC Ondansetron HCl (Zofran Inj) 4 mg ONCE ONCE IV PUSH Last administered on 16:21; Start 03/10/17 at 15:30; Stop 03/10/17 at 15:31; Status DC Iodixanol (VISIPAQUE 320 INJ (Rad CT)) 50 ml STK-MED ONCE IV ; Start 03/10/17 at 16:21; Stop 03/10/17 at 16:22; Status DC Sodium Chloride 1,000 ml @ 75 mls/hr [id number] IV ; Start 03/10/17 at 16:20 Sodium Chloride (NS Flush) 2 ml UNSCH PRN IV FLUSH FLUSH AFTER USING IV ACCESS ; Start 03/10/17 at 16:30 Sodium Chloride (NS Flush) 2 ml BID IV FLUSH ; Start 03/10/17 at 21:00 Acetaminophen (Tylenol) 650 mg Q4H PRN PO TEMP > 100.4; Start 03/10/17 at 16:30 Ondansetron HCl (Zofran Inj) 4 mg Q6H PRN IVP NAUSEA OR VOMITING; Start at 16:30 Prochlorperazine (Compazine Supp) 25 mg Q12H PRN RECTAL NAUSEA OR VOMITING; Start 03/10/17 at 16:30 Acetaminophen (Tylenol) 650 mg Q6H PRN PO PAIN SCALE 1 TO 2; Start 03/10/17 at 16:30 Acetaminophen/ Hydrocodone Bitart ([place]mb[place] 5-325 Mg) 1 tab Q4H PRN PO PAIN SCALE 3 TO 5; Start 03/10/17 at 16:30 Acetaminophen/ Hydrocodone Bitart ([place] 10-325 Mg) 1 tab Q4H PRN PO PAIN SCALE 6 TO 10; Start 03/10/17 at 16:30 Morphine Sulfate (Morphine Inj) 2 mg Q3H PRN IV Pain 3-5; if unable to take PO ; Start 03/10/17 at 16:30 Morphine Sulfate (Morphine Inj) 4 mg Q3H PRN IV Pain 6-10;if unable to take PO ; Start 03/10/17 at 16:30 Naloxone HCl (Narcan Inj) 0.4 mg UNSCH PRN IV SEE LABEL COMMENTS; Start at 16:30 Senna/Docusate Sodium (Soila-Colace) 1 tab BID PO ; Start 03/10/17 at 21:00 Magnesium Hydroxide (Milk Of Magnesia Liq) 30 ml Q12H PRN PO MILD - MODERATE CONSTIPATION; Start 03/10/17 at 16:30 Sennosides (Senokot) 17.2 mg Q12H PRN PO MODERATE - SEVERE CONSTIPATION; Start 03/10/17 at 16:30 Bisacodyl (Dulcolax Supp) 10 mg DAILY PRN RECTAL SEVERE CONSITIPATION; Start at 16:30 Lactulose (Lactulose Liq) 30 ml DAILY PRN PO SEVERE CONSITIPATION; Start at 16:30 Ceftriaxone Sodium 1000 mg/ Sodium Chloride 100 ml @ 200 mls/hr Q24H IV ; Start 03/10/17 at 18:00 Atenolol (Tenormin) 25 mg DAILY PO ; Start 03/11/17 at 09:00 Atorvastatin Calcium (Lipitor) 40 mg HS PO ; Start 03/10/17 at 21:00 Donepezil HCl (Aricept) 10 mg HS PO ; Start 03/10/17 at 21:00 Isosorbide Mononitrate (Imdur) 60 mg DAILY@0700 PO ; Start 03/11/17 at 07:00 Memantine (Namenda) 10 mg BID PO ; Start 03/10/17 at 21:00 Quetiapine Fumarate (SEROquel) 50 mg HS PO ; Start 03/10/17 at 21:00 Sertraline HCl (Zoloft) 100 mg DAILY PO ; Start 03/11/17 at 09:00 Family History Hypertension Social History Lives in group home facility at this time due to dementia Does not smoke does not drink denies any illicits Physical Exam Vital Signs Vital Signs Date Time Temp Pulse Resp B/P (MAP) Pulse Ox O2 Delivery O2 Flow Rate FiO2 03/10/17 17:18 65 17 161/70 (100) 95 Nasal Cannula 3.00 03/10/17 14:24 98.7 60 16 138/68 (91) 96 Physical Exam GENERAL: This is a well-nourished, well-developed patient, in no apparent distress.dementia not oriented and not speaking Bengali SKIN: No rashes, ecchymoses or lesions. Cool and dry. HEAD: Atraumatic. Normocephalic. No temporal or scalp tenderness. EYES: Pupils equal round and reactive. Extraocular motions intact. No scleral icterus. No injection or drainage. ENT: Nose without bleeding, purulent drainage or septal hematoma. Throat without erythema, tonsillar hypertrophy or exudate. Uvula midline. Airway patent. NECK: Trachea midline. No JVD or lymphadenopathy. Supple, nontender, no meningeal signs. CARDIOVASCULAR: IRRegular rate and rhythm without murmurs, gallops, or rubs. Paced rate and rhythm S1-S2 no S3 or S4 does have a click RESPIRATORY: Clear to auscultation. Breath sounds equal bilaterally. No wheezes , rales, or rhonchi. GASTROINTESTINAL: Abdomen soft, non-tender, nondistended. No hepato-splenomegaly , or palpable masses. No guarding. MUSCULOSKELETAL: Extremities without clubbing, cyanosis, or edema. No joint tenderness, effusion, or edema noted. No calf tenderness. Negative Homans sign bilaterally. Tender left hip increased range of motion NEUROLOGICAL: Awake and alert but very confused. Cranial nerves II through XII intact. Motor and sensory grossly within normal limits. 4 out of 5 muscle strength in all muscle groups. ABNormal speech. Insight and judgment not able to be measured Patient is actively demented mood and behavior inappropriate Laboratory Laboratory Tests Test 03/10/17 14:20 03/10/17 15:30 White Blood Count 8.2 Red Blood Count 3.68 Hemoglobin 11.4 Hematocrit 34.3 Mean Corpuscular Volume 93.2 Mean Corpuscular Hemoglobin 30.9 Mean Corpuscular Hemoglobin Concent 33.2 Red Cell Distribution Width 15.2 Platelet Count 243 Mean Platelet Volume 8.7 Neutrophils (%) (Auto) 68.6 Lymphocytes (%) (Auto) 18.6 Monocytes (%) (Auto) 8.8 Eosinophils (%) (Auto) 3.6 Basophils (%) (Auto) 0.4 Neutrophils # (Auto) 5.6 Lymphocytes # (Auto) 1.5 Monocytes # (Auto) 0.7 Eosinophils # (Auto) 0.3 Basophils # (Auto) 0.0 CBC Comment DIFF FINAL Differential Comment Prothrombin Time 15.1 Prothromb Time International Ratio 1.3 Activated Partial Thromboplast Time 25.4 Blood Urea Nitrogen 30 Creatinine 1.31 Random Glucose 92 Total Protein 6.9 Albumin 3.1 Calcium Level 8.5 Alkaline Phosphatase 132 Aspartate Amino Transf (AST/SGOT) 28 Alanine Aminotransferase (ALT/SGPT) 20 Total Bilirubin 0.3 Sodium Level 142 Potassium Level 4.4 Chloride Level 110 Carbon Dioxide Level 25.5 Anion Gap 7 Estimat Glomerular Filtration Rate 39 Urine Color YELLOW Urine Turbidity HAZY Urine pH 5.5 Urine Specific [place] 1.019 Urine Protein TRACE Urine Glucose (UA) NEG Urine Ketones NEG Urine Occult Blood MOD Urine Nitrite POS Urine Bilirubin NEG Urine Urobilinogen LESS THAN 2.0 Urine Leukocyte Esterase MOD Urine RBC 34 Urine WBC 29 Urine Squamous Epithelial Cells <1 Urine Bacteria MANY Urine Hyaline Casts 6 Urine Mucus FEW Microscopic Urinalysis Comment CATH-CULTURE IND Date/Time Source Procedure Growth Status 03/10/17 15:30 Urine Catheterized Urine Urine Culture Pending Received Result Diagram: 03/10/17 1420 03/10/17 [address] Angiography 03/10/17 1518 Signed Impressions: Service Date/Time: Friday, March 10, 2017 15:44 - CONCLUSION: Cardiomegaly with reflux into the hepatic veins. There is no central pulmonary emboli. Minimal aneurysmal dilatation descending aorta. Levi Delaney MD FACR Hip and Pelvis X-Ray 03/10/171421 Signed Impressions: Service Date/Time: Friday, March 10, 2017 14:51 - CONCLUSION: Probable femoral neck fracture. CT scan would be of benefit. Levi Delaney MD FACR Chest X-Ray 03/10/171421 Signed Impressions: Service Date/Time: Friday, March 10, 2017 14:54 - CONCLUSION: No acute disease. Levi Delaney MD FACR Pelvis CT 03/10/17 0000 Signed Impressions: Service Date/Time: Friday, March 10, 2017 15:51 - CONCLUSION: 1. Subtle slightly impacted subcapital left hip fracture. 2. Osteopenia and degenerative change in the lumbar spine. 3. Diverticulosis. MD Jaqueline Galaviz VTE Risk Assessment Caprini VTE Risk Assessment: Mod/High Risk (score >= 2) Caprini Risk Assessment Model Point Value = 1 Point Value = 2 Point Value = 3 Point Value = 5 Age 41-60 Minor surgery BMI > 25 kg/m2 Swollen legs Varicose veins or History of unexplained or recurrent spontaneous Oral contraceptives or hormone replacement Sepsis (< 1 month) Serious lung disease, including pneumonia (< 1 month) Abnormal pulmonary function Acute myocardial infarction Congestive heart failure (< 1 month) History of inflammatory bowel disease Medical patient at bed rest Age 61-74 Arthroscopic surgery Major open surgery (> 45 min) Laparoscopic surgery (> 45 min) Malignancy Confined to bed (> 72 hours) Immobilizing plaster cast Central venous access Age >= 75 History of VTE Family history of VTE Factor V Leiden Prothrombin [id number] Lupus anticoagulant Anticardiolipin antibodies Elevated serum homocysteine Heparin-induced thrombocytopenia Other congenital or acquired thrombophilia Stroke (< 1 month) Elective arthroplasty Hip, pelvis, or leg fracture Acute spinal cord injury (< 1 month) Prophylaxis Regimen Total Risk Factor Score Risk Level Prophylaxis Regimen 0-1 Low Early ambulation 2 Moderate Order ONE of the following: *Sequential Compression Device (SCD) *Heparin 5000 units SQ BID 3-4 Higher Order ONE of the following medications: *Heparin 5000 units SQ TID *Enoxaparin/Lovenox 40 mg SQ daily (WT < 150 kg, CrCl > 30 mL/min) *Enoxaparin/Lovenox 30 mg SQ daily (WT < 150 kg, CrCl > 10-29 mL/min) *Enoxaparin/Lovenox 30 mg SQ BID (WT < 150 kg, CrCl > 30 mL/min) AND/OR *Sequential Compression Device (SCD) 5 or more Highest Order ONE of the following medications: *Heparin 5000 units SQ TID (Preferred with Epidurals) *Enoxaparin/Lovenox 40 mg SQ daily (WT < 150 kg, CrCl > 30 mL/min) *Enoxaparin/Lovenox 30 mg SQ daily (WT < 150 kg, CrCl > 10-29 mL/min) *Enoxaparin/Lovenox 30 mg SQ BID (WT < 150 kg, CrCl > 30 mL/min) AND *Sequential Compression Device (SCD) Assessment and Plan Problem List: (1) Mechanical heart valve present ICD Code: Z95.2 - Presence of prosthetic heart valve (2) Hx of CABG ICD Code: Z95.1 - Presence of aortocoronary bypass graft Status: Acute (3) Aortic valve replaced ICD Code: Z95.2 - Presence of prosthetic heart valve Status: Acute (4) Dementia with behavioral disturbance ICD Code: F03.91 - Unspecified dementia with behavioral disturbance Status: Chronic (5) Fracture of femoral neck, left ICD Code: S72.002A - Fracture of unspecified part of neck of left femur, initial encounter for closed fracture (6) Pacemaker ICD Code: Z95.0 - Presence of cardiac pacemaker (7) HTN (hypertension) ICD Code: I10 - Essential (primary) hypertension Status: Chronic (8) CAD (coronary artery disease) ICD Code: I25.10 - Atherosclerotic heart disease of [place] coronary artery without angina pectoris Status: Chronic (9) Atrial fibrillation ICD Code: I48.91 - Unspecified atrial fibrillation Assessment and Plan Patient has left femoral neck fracture Will consult orthopedic surgery. Patient will be moderate risk for surgery due to advancing dementia or coronary disease and history of aortic valve mechanical valve Will need to be started on heparin if no surgery is planned within the next day or so Hypertension Continue on her home medications Dementia continue on all her home medications Anxiety and depression continue on home medications Coronary artery disease history of CABG continue on home medications Heparin for the mechanical aortic valve or nothing surgery planned sooner SCDs and JAD madrid for DVT PPI for GI prophylaxis Physician Certification 2 Midnight Certification Type: Admission for Inpatient Services Order for Inpatient Services The services are ordered in accordance with Medicare regulations or non- Medicare payer requirements, as applicable. In the case of services not specified as inpatient-only, they are appropriately provided as inpatient services in accordance with the 2-midnight benchmark. Estimated LOS (days): 4 4 days is the estimated time the patient will need to remain in the hospital, assuming treatment plan goals are met and no additional complications. Post-Hospital Plan: SNF Levi Francois DO Mar 10, 2017 17:44
[2017-03-10] MEDS: SODIUM CHLOR 0.45% 1000 ML INJ 1,000 ML IV SCH (18:47)
[2017-03-10] MEDS: cefTRIAXone INJ 1,000 MG in SODIUM CHLORIDE 0.9% INJ 100 ML IV SCH (18:48)
[2017-03-10 19:31] VITALS: BP 128/60; PULSE 66; RESP 20; O2SAT 93
[2017-03-10] MEDS: HEPARIN-D5W 25,000 U/250 ML 250 ML IV PRN (19:34)
[2017-03-10 20:48] VITALS: PULSE 66
[2017-03-10] MEDS: MORPHINE SULFATE 4 MG/ML INJ IV PRN (21:32)
[2017-03-10] MEDS: DONEPEZIL HCL 5 MG TAB PO SCH (21:32)
[2017-03-10] MEDS: DOCUSATE SODIUM 50 MG/SENNA 8.6 MG TAB PO SCH (21:32)
[2017-03-10] MEDS: ATORVASTATIN 40 MG TAB PO SCH (21:32)
[2017-03-10] MEDS: SODIUM CHLORIDE 0.9% FLUSH 10 ML FLUSH IV FLUSH SCH (21:32)
[2017-03-10] MEDS: QUEtiapine FUMARATE 25 MG TAB PO SCH (21:32)
[2017-03-10] MEDS: MEMANTINE HCL 10 MG TAB PO SCH (21:32)
[2017-03-10 21:40] VITALS: BP 133/62; PULSE 62; RESP 19; TEMP 99.1; O2SAT 95
[2017-03-11] VITALS (7 sets, daily range): BP systolic 96–161; BP diastolic 46–75; PULSE 60–75; RESP 16–20; TEMP 97.5–99.4; O2SAT 93–96
[2017-03-11] MEDS: MORPHINE SULFATE 4 MG/ML INJ IV PRN (01:29)
[2017-03-11 01:47] LABS: AUTOMATED NEUTROPHIL # 6.5 TH/MM3 (1.8-7.7); BASOPHIL % 0.2 % (0.0-2.0); EOSINOPHIL # 0.1 TH/MM3 (0-0.4); EOSINOPHIL % 1.5 % (0.0-4.0); HEMATOCRIT 30.2 % (35.0-46.0); HEMO FLAGS DIFF FINAL; LYMPH % 9.7 % (9.0-44.0); LYMPHOCYTE # 0.8 TH/MM3 (1.0-4.8); MEAN CELL VOLUME 93.8 FL (80.0-100.0); MEAN CORPUSCULAR HEMOGLOBIN 31.2 PG (27.0-34.0); MEAN CORPUSCULAR HGB CONC 33.2 % (32.0-36.0); MONO % 6.6 % (0.0-8.0); PLATELET COUNT 191 TH/MM3 (150-450); RED BLOOD COUNT 3.22 MIL/MM3 (4.00-5.30); RED CELL DISTRIBUTION WIDTH 15.7 % (11.6-17.2)
[2017-03-11 02:13] LABS: ANION GAP 6 MEQ/L (5-15); AST (GOT) 16 U/L (15-37); BICARBONATE 25.7 MEQ/L (21.0-32.0); BLOOD UREA NITROGEN 21 MG/DL (7-18); CHLORIDE 110 MEQ/L (98-107); GLOMERULAR FILTRATION RATE 53 ML/MIN (>89); MAGNESIUM 1.9 MG/DL (1.5-2.5); POTASSIUM 3.8 MEQ/L (3.5-5.1); SODIUM (NA) 142 MEQ/L (136-145)
[2017-03-11 02:22] LABS: ALKALINE PHOSPHATASE 106 U/L (45-117); ALT (GPT) 15 U/L (10-53); FREE T4 0.88 NG/DL (0.76-1.46); TOTAL BILIRUBIN ADULT 0.3 MG/DL (0.2-1.0)
[2017-03-11 06:11] LABS: APTT (PATIENT) GREATER THAN 277.5 SEC (24.3-30.1)
--- NOTE | 2017-03-11 07:18 | PD.ORT.PN ---
Subjective Subjective Remarks s/p fall at [facility]. apparently 4-5 days ago. patient demented and speaks maori. was placed on heparin drip yesterday Objective Vitals Vital Signs Date Time Temp Pulse Resp B/P (MAP) Pulse Ox O2 Delivery O2 Flow Rate FiO2 03/11/17 04:00 98.5 69 20 96/51 (66) 93 03/11/17 00:00 98.9 62 19 102/46 (64) 94 03/10/17 21:40 99.1 62 19 133/62 (85) 95 03/10/17 20:48 66 03/10/17 20:25 03/10/17 19:31 66 20 128/60 (82) 93 Nasal Cannula 3.00 03/10/17 17:18 65 17 161/70 (100) 95 Nasal Cannula 3.00 03/10/17 14:24 98.7 60 16 138/68 (91) 96 I/O 03/10/17 03/10/17 03/10/17 03/11/17 03/11/17 03/11/17 07:00 15:00 23:00 07:00 15:00 23:00 Intake Total 600 ml 920 ml Output Total 550 ml Balance 600 ml 370 ml Intake Oral 0 ml IV Total 600 ml 920 ml Output Urine Total 550 ml Result Diagram: 03/11/17 0100 03/11/17 0100 Other Results Laboratory Tests Test 03/10/17 14:20 Prothromb Time International Ratio 1.3 RATIO Prothrombin Time 15.1 SEC (9.8-11.6) Imaging Last [address] Angiography 03/10/17 1518 Signed Impressions: Service Date/Time: Friday, March 10, 2017 15:44 - CONCLUSION: Cardiomegaly with reflux into the hepatic veins. There is no central pulmonary emboli. Minimal aneurysmal dilatation descending aorta. Levi Delaney MD FACR Hip and Pelvis X-Ray 03/10/17 142 Signed Impressions: Service Date/Time: Friday, March 10, 2017 14:51 - CONCLUSION: Probable femoral neck fracture. CT scan would be of benefit. Levi Delaney MD FACR Chest X-Ray 03/10/171421 Signed Impressions: Service Date/Time: Friday, March 10, 2017 14:54 - CONCLUSION: No acute disease. Levi Delaney MD FACR Objective Remarks LLE: minimal pain with motion. in restraints. Assessment & Plan Assessment and Plan 1) Left Femoral Neck fx -hold heparin drip -APTT is too high to safely proceed with surgery -will postpone surgery until tomorrow -npo after MN -family for consents -no heparin after 2 AM -surgery tomorrow AM Larry Knight Mar 11, 2017 07:18
[2017-03-11] MEDS ORDERED: GENTAMICIN SULFATE 80 MG/2 ML VIAL ONE (07:19)
[2017-03-11] MEDS ORDERED: VANCOMYCIN HCL 1000 MG VIAL ONE ×2 (07:19→07:33)
[2017-03-11] MEDS ORDERED: ceFAZolin INJ 1,000 MG VIAL ONE (07:19)
[2017-03-11] MEDS ORDERED: LACTATED RINGER'S 1000 ML IV PRN (08:45)
[2017-03-11] MEDS ORDERED: POVIDONE IODINE 5% (ANTISEPSIS KIT) 4 APPLICATIONS EACH NARE PRN (08:45)
[2017-03-11] MEDS ORDERED: SODIUM CHLORID 0.9% 500 ML IV PRN (08:45)
[2017-03-11] MEDS ORDERED: CHLORHEXIDINE GLUCONATE 2 % 1 PACK (2 CLOTHS) TOPICAL PRN (08:45)
[2017-03-11] MEDS ORDERED: INSULIN HUMAN REGULAR 1,000 UNITS/10 ML VIAL SQ PRN (08:45)
[2017-03-11] MEDS ORDERED: METOPROLOL TARTRATE 25 MG TAB PO PRN (08:45)
[2017-03-11] MEDS: SODIUM CHLORIDE 0.9% FLUSH 10 ML FLUSH IV FLUSH SCH ×2 (09:00→21:44)
--- NOTE | 2017-03-11 09:27 | MB ---
cc: MADDENATUL DATE OF CONSULTATION: 03/11/2017 REASON FOR CONSULTATION Left femoral neck fracture. CONSULTING PHYSICIAN Dr. Francois. HISTORY OF PRESENT ILLNESS Zarina is a 86-year-old female who has dementia. She lives in a intermediate. She had a fall approximately 4 days ago. She has had some pain in the hip and difficulty ambulating. She presented to the emergency room where x-rays reveal a left hip intertrochanteric fracture. She is on Coumadin. She has a history of valve replacement surgery. X-rays in the emergency room revealed a valgus impacted femoral neck fracture. She has been admitted for treatment of this injury. She has been started on a heparin drip. She is currently confused on the 4th floor. She was unable to give any other significant history. PAST MEDICAL HISTORY Chart was reviewed for history. The patient was unable to give any significant history. ILLNESSES 1. Atrial fibrillation. 2. Dementia. 3. Hypertension. 4. Coronary artery disease. 5. Colon cancer. PAST SURGICAL HISTORY 1. Pacemaker placement. 2. Mechanical aortic valve replacement. 3. Right colon resection. MEDICATIONS 1. Atenolol. 2. Quetiapine. 3. Zoloft. 4. Coumadin. 5. Isosorbide mononitrate. 6. Atorvastatin. 7. Donepezil. 8. Namenda. ALLERGIES None. SOCIAL HISTORY [facility] No other history is available. FAMILY HISTORY Unobtainable. REVIEW OF SYSTEMS Unobtainable. PHYSICAL EXAMINATION GENERAL: The patient is an 86-year-old female who is awake but confused. She appears well-developed, well-nourished. VITAL SIGNS: Temperature 98.5, pulse 69, respirations 20, blood pressure 96/51, O2 sat 93% on room air. HEAD: The patient is normocephalic. Pupils are equal. NECK: Soft, nontender. Trachea is midline. ABDOMEN: Soft, nontender, nondistended. EXTREMITIES: Examination of bilateral upper extremities reveals no obvious pain or deformity with shoulder, elbow or wrist motion. Skin is intact. She has good cap refill in her fingers. Examination of right leg reveals no obvious pain or deformity with hip, knee or ankle motion. Skin is intact. Sensation appears to be intact. She has good cap refill in her foot. Examination of left leg reveals mild pain with any hip motion. She has no tenderness around her knee, tibia or ankle. Skin is intact. Dorsalis pedis pulses palpable. Sensation is intact. X-RAYS X-rays of the left hip were reviewed. X-rays reveal a left femoral neck fracture. IMPRESSION 1. Osteoporosis. 2. Impacted left femoral neck fracture. 3. Hypertension. 4. Mechanical valve replacement. PLAN At this point treatment options would include left hip pinning versus left hip hemiarthroplasty. Given the patient's overall medical condition and the alignment of her fracture I would recommend left hip pinning. Risks of surgery include bleeding, infection, injuries to arteries, nerves and blood vessels, nonunion, malunion, avascular necrosis, need for hip replacement as well as medical complications including blood clot, stroke, heart attack and . This morning's labs revealed that her APTT is greater than 277. At this point her blood is too thin from her heparin drip. The heparin drip will need to be stopped and modified. I will postpone surgery until tomorrow so this may be corrected. If the patient is cleared tomorrow and her coagulation has returned to closer to normal, I will plan on surgery for left hip pinning. Will attempt to contact family for consents. A mid-level provider in my office, nurse practitioner or PA, may see this patient on a follow-up basis and continue to implement the objective of this plan including: Starting or adjusting medications, injections of muscle, tendon, bursa or joints, cast application, orthotic or brace application, physical therapy, further radiographic studies including x-ray, MRI, CT, ultrasounds or bone scan, vascular studies, neurologic studies, or other specialist consultations, and proceeding with surgical management as appropriate. MD YVETTE Rodriguez/ABY /8:37 AM /9:03 AM
[2017-03-11 11:42] LABS: HEMOGLOBIN A1a 0.9 %; HEMOGLOBIN A1b 1.9 %; HEMOGLOBIN Ao 84.5 %; HEMOGLOBIN LA1C 2.2 %; HEMOGLOBIN P3 5.5 %
[2017-03-11] MEDS: DOCUSATE SODIUM 50 MG/SENNA 8.6 MG TAB PO SCH ×2 (11:43→21:44)
[2017-03-11] MEDS: PANTOPRAZOLE SOD 40 MG DELAYED RELEASE TAB PO SCH (11:43)
[2017-03-11] MEDS: ATENOLOL 25 MG TAB PO SCH (11:43)
[2017-03-11] MEDS: MEMANTINE HCL 10 MG TAB PO SCH ×2 (11:43→21:44)
[2017-03-11] MEDS: SERTRALINE HCL 100 MG TAB PO SCH (11:43)
[2017-03-11] MEDS: ISOSORBIDE MONONITRATE 60 MG TAB PO SCH (11:45)
[2017-03-11] MEDS: SODIUM CHLOR 0.45% 1000 ML INJ 1,000 ML IV SCH ×2 (11:46→21:45)
--- NOTE | 2017-03-11 12:04 | HHI.PR ---
Subjective Remarks Patient is a 86-year-old long term patient. Who presented to the emergency department with pain in the left hip. Patient was found to have a left femoral neck fracture. Patient is confused and demented. Patient is normally similarly somewhat ambulatory without assistance has not been moving for the last 4 days since her fall Patient was brought to the emergency department for evaluation of her left femoral neck fracture will undergo go evaluation with orthopedic surgery and will keep her nothing by mouth in case surgery is tomorrow Patient is supposed to have a mechanical valve. For which she supposed to be on chronic Coumadin but is subtherapeutic at this time will hold this so that she can have surgery as soon as possible We'll started on a heparin drip that can be discontinued once surgery decide when to take her to fix the hip 03-11 surgery decided to perform surgery tomorrow Will hold heparin drip starting at 2 AM tonight A.m. labs No new complaints Will need long-term anticoagulation due to her chronic mechanical valve Objective Vitals Vital Signs Date Time Temp Pulse Resp B/P (MAP) Pulse Ox O2 Delivery O2 Flow Rate FiO2 03/11/17 08:00 98.4 60 20 133/59 (83) 94 03/11/17 04:00 98.5 69 20 96/51 (66) 93 03/11/17 00:00 98.9 62 19 102/46 (64) 94 03/10/17 21:40 99.1 62 19 133/62 (85) 95 03/10/17 20:48 66 03/10/17 20:25 03/10/17 19:31 66 20 128/60 (82) 93 Nasal Cannula 3.00 03/10/17 17:18 65 17 161/70 (100) 95 Nasal Cannula 3.00 03/10/17 14:24 98.7 60 16 138/68 (91) 96 I/O 03/10/17 03/10/17 03/10/17 03/11/17 03/11/17 03/11/17 07:00 15:00 23:00 07:00 15:00 23:00 Intake Total 600 ml 920 ml Output Total 550 ml Balance 600 ml 370 ml Intake Oral 0 ml IV Total 600 ml 920 ml Output Urine Total 550 ml Result Diagram: 03/11/17 0100 03/11/17 0100 Other Results Laboratory Tests Test 03/10/17 14:20 9/3/17 15:30 03/11/17 01:00 03/11/17 05:06 White Blood Count 8.2 TH/MM3 8.0 TH/MM3 Red Blood Count 3.68 MIL/MM3 3.22 MIL/MM3 Hemoglobin 11.4 GM/DL 10.0 GM/DL Hematocrit 34.3 % 30.2 % Mean Corpuscular Volume 93.2 FL 93.8 FL Mean Corpuscular Hemoglobin 30.9 PG 31.2 PG Mean Corpuscular Hemoglobin Concent 33.2 % 33.2 % Red Cell Distribution Width 15.2 % 15.7 % Platelet Count 243 TH/MM3 191 TH/MM3 Mean Platelet Volume 8.7 FL 8.5 FL Neutrophils (%) (Auto) 68.6 % 82.0 % Lymphocytes (%) (Auto) 18.6 % 9.7 % Monocytes (%) (Auto) 8.8 % 6.6 % Eosinophils (%) (Auto) 3.6 % 1.5 % Basophils (%) (Auto) 0.4 % 0.2 % Neutrophils # (Auto) 5.6 TH/MM3 6.5 TH/MM3 Lymphocytes # (Auto) 1.5 TH/MM3 0.8 TH/MM3 Monocytes # (Auto) 0.7 TH/MM3 0.5 TH/MM3 Eosinophils # (Auto) 0.3 TH/MM3 0.1 TH/MM3 Basophils # (Auto) 0.0 TH/MM3 0.0 TH/MM3 CBC Comment DIFF FINAL DIFF FINAL Differential Comment Prothrombin Time 15.1 SEC Prothromb Time International Ratio 1.3 RATIO Activated Partial Thromboplast Time 25.4 SEC GREATER THAN 277.5 SEC Blood Urea Nitrogen 30 MG/DL 21 MG/DL Creatinine 1.31 MG/DL 0.99 MG/DL Random Glucose 92 MG/DL 121 MG/DL Total Protein 6.9 GM/DL 6.3 GM/DL Albumin 3.1 GM/DL 2.9 GM/DL Calcium Level 8.5 MG/DL 7.8 MG/DL Alkaline Phosphatase 132 U/L 106 U/L Aspartate Amino Transf (AST/SGOT) 28 U/L 16 U/L Alanine Aminotransferase (ALT/SGPT) 20 U/L 15 U/L Total Bilirubin 0.3 MG/DL 0.3 MG/DL Sodium Level 142 MEQ/L 142 MEQ/L Potassium Level 4.4 MEQ/L 3.8 MEQ/L Chloride Level 110 MEQ/L 110 MEQ/L Carbon Dioxide Level 25.5 MEQ/L 25.7 MEQ/L Anion Gap 7 MEQ/L 6 MEQ/L Estimat Glomerular Filtration Rate 39 ML/MIN 53 ML/MIN Urine Color YELLOW Urine Turbidity HAZY Urine pH 5.5 Urine Specific [place] 1.019 Urine Protein TRACE mg/dL Urine Glucose (UA) NEG mg/dL Urine Ketones NEG mg/dL Urine Occult Blood MOD Urine Nitrite POS Urine Bilirubin NEG Urine Urobilinogen LESS THAN 2.0 MG/DL Urine Leukocyte Esterase MOD Urine RBC 34 /hpf Urine WBC 29 /hpf Urine Squamous Epithelial Cells <1 /hpf Urine Bacteria MANY /hpf Urine Hyaline Casts 6 /lpf Urine Mucus FEW /lpf Microscopic Urinalysis Comment CATH-CULTURE IND Phosphorus Level 3.9 MG/DL Magnesium Level 1.9 MG/DL Free Thyroxine 0.88 NG/DL Thyroid Stimulating Hormone 3rd Gen 0.508 uIU/ML Test 03/11/17 10:17 Activated Partial Thromboplast Time 48.0 SEC Imaging Last Impressions CT Angiography 03/10/17 1518 Signed Impressions: Service Date/Time: Friday, March 10, 2017 15:44 - CONCLUSION: Cardiomegaly with reflux into the hepatic veins. There is no central pulmonary emboli. Minimal aneurysmal dilatation descending aorta. Levi Delaney MD FACR Hip and Pelvis X-Ray 03/10/171421 Signed Impressions: Service Date/Time: Friday, March 10, 2017 14:51 - CONCLUSION: Probable femoral neck fracture. CT scan would be of benefit. Levi Delaney MD FACR Chest X-Ray 03/10/17 1422 Signed Impressions: Service Date/Time: Friday, March 10, 2017 14:54 - CONCLUSION: No acute disease. Levi Delaney MD FACR Pelvis CT 03/10/17 0000 Signed Impressions: Service Date/Time: Friday, March 10, 2017 15:51 - CONCLUSION: 1. Subtle slightly impacted subcapital left hip fracture. 2. Osteopenia and degenerative change in the lumbar spine. 3. Diverticulosis. Ruben Dalton MD Objective Remarks GENERAL: This is a well-nourished, well-developed patient, in no apparent distress.dementia not oriented and not speaking [place] SKIN: No rashes, ecchymoses or lesions. Cool and dry. HEAD: Atraumatic. Normocephalic. No temporal or scalp tenderness. EYES: Pupils equal round and reactive. Extraocular motions intact. No scleral icterus. No injection or drainage. ENT: Nose without bleeding, purulent drainage or septal hematoma. Throat without erythema, tonsillar hypertrophy or exudate. Uvula midline. Airway patent. NECK: Trachea midline. No JVD or lymphadenopathy. Supple, nontender, no meningeal signs. CARDIOVASCULAR: IRRegular rate and rhythm without murmurs, gallops, or rubs. Paced rate and rhythm S1-S2 no S3 or S4 does have a click RESPIRATORY: Clear to auscultation. Breath sounds equal bilaterally. No wheezes , rales, or rhonchi. GASTROINTESTINAL: Abdomen soft, non-tender, nondistended. No hepato-splenomegaly , or palpable masses. No guarding. MUSCULOSKELETAL: Extremities without clubbing, cyanosis, or edema. No joint tenderness, effusion, or edema noted. No calf tenderness. Negative Homans sign bilaterally. Tender left hip increased range of motion NEUROLOGICAL: Awake and alert but very confused. Cranial nerves II through XII intact. Motor and sensory grossly within normal limits. 4 out of 5 muscle strength in all muscle groups. ABNormal speech. Insight and judgment not able to be measured Patient is actively demented mood and behavior inappropriate Medications and IVs Current Medications Sodium Chloride 1,000 ml @ 150 mls/hr ONCE ONCE IV Last administered on 15:19; Start 03/10/17 at 14:30; Stop 03/10/17 at 21:09; Status DC Morphine Sulfate (Morphine Inj) 2 mg ONCE ONCE IV PUSH Last administered on 15:35; Start 03/10/17 at 15:30; Stop 03/10/17 at 15:31; Status DC Ondansetron HCl (Zofran Inj) 4 mg ONCE ONCE IV PUSH Last administered on 16:21; Start 03/10/17 at 15:30; Stop 03/10/17 at 15:31; Status DC Iodixanol (VISIPAQUE 320 INJ (Rad CT)) 50 ml STK-MED ONCE IV ; Start 03/10/17 at 16:21; Stop 03/10/17 at 16:22; Status DC Sodium Chloride 1,000 ml @ 75 mls/hr [id number] IV Last administered on 03/11/17 11:46; Start 03/10/17 at 16:20 Sodium Chloride (NS Flush) 2 ml UNSCH PRN IV FLUSH FLUSH AFTER USING IV ACCESS ; Start 03/10/17 at 16:30 Sodium Chloride (NS Flush) 2 ml BID IV FLUSH Last administered on 03/10/17 21: 32; Start 03/10/17 at 21:00 Acetaminophen (Tylenol) 650 mg Q4H PRN PO TEMP > 100.4; Start 03/10/17 at 16:30 Ondansetron HCl (Zofran Inj) 4 mg Q6H PRN IVP NAUSEA OR VOMITING; Start at 16:30 Prochlorperazine (Compazine Supp) 25 mg Q12H PRN RECTAL NAUSEA OR VOMITING; Start 03/10/17 at 16:30 Acetaminophen (Tylenol) 650 mg Q6H PRN PO PAIN SCALE 1 TO 2; Start 03/10/17 at 16:30 Acetaminophen/ Hydrocodone Bitart ([place] 5-325 Mg) 1 tab Q4H PRN PO PAIN SCALE 3 TO 5; Start 03/10/17 at 16:30 Acetaminophen/ Hydrocodone Bitart ([place] 10-325 Mg) 1 tab Q4H PRN PO PAIN SCALE 6 TO 10; Start 03/10/17 at 16:30 Morphine Sulfate (Morphine Inj) 2 mg Q3H PRN IV Pain 3-5; if unable to take PO Last administered on 03/11/17 01:29; Start 03/10/17 at 16:30 Morphine Sulfate (Morphine Inj) 4 mg Q3H PRN IV Pain 6-10;if unable to take PO Last administered on 03/10/17 21:32; Start 03/10/17 at 16:30 Naloxone HCl (Narcan Inj) 0.4 mg UNSCH PRN IV SEE LABEL COMMENTS; Start at 16:30 Senna/Docusate Sodium (Soila-Colace) 1 tab BID PO Last administered on 03/11/17 11:43; Start 03/10/17 at 21:00 Magnesium Hydroxide (Milk Of Magnesia Liq) 30 ml Q12H PRN PO MILD - MODERATE CONSTIPATION; Start 03/10/17 at 16:30 Sennosides (Senokot) 17.2 mg Q12H PRN PO MODERATE - SEVERE CONSTIPATION; Start 03/10/17 at 16:30 Bisacodyl (Dulcolax Supp) 10 mg DAILY PRN RECTAL SEVERE CONSITIPATION; Start at 16:30 Lactulose (Lactulose Liq) 30 ml DAILY PRN PO SEVERE CONSITIPATION; Start at 16:30 Ceftriaxone Sodium 1000 mg/ Sodium Chloride 100 ml @ 200 mls/hr Q24H IV Last administered on 03/10/17 18:48; Start 03/10/17 at 18:00 Atenolol (Tenormin) 25 mg DAILY PO Last administered on 03/11/17 11:43; Start 03/11/17 at 09:00 Atorvastatin Calcium (Lipitor) 40 mg HS PO Last administered on 03/10/17 21:32 ; Start 03/10/17 at 21:00 Donepezil HCl (Aricept) 10 mg HS PO Last administered on 03/10/17 21:32; Start 03/10/17 at 21:00 Isosorbide Mononitrate (Imdur) 60 mg DAILY@0700 PO Last administered on 11:45; Start 03/11/17 at 07:00 Memantine (Namenda) 10 mg BID PO Last administered on 03/11/17 11:43; Start 03/10/17 at 21:00 Quetiapine Fumarate (SEROquel) 50 mg HS PO Last administered on 03/10/17 21:32 ; Start 03/10/17 at 21:00 Sertraline HCl (Zoloft) 100 mg DAILY PO Last administered on 03/11/17 11:43; Start 03/11/17 at 09:00 Heparin Sodium (Porcine) (Heparin Inj) 4,000 units ONCE ONCE IV Last administered on 03/10/17 18:46; Start 03/10/17 at 17:45; Stop 03/10/17 at 17:56; Status DC Heparin Sodium/ Dextrose 250 ml @ 9.72 mls/hr TITRATE PRN IV Coagulation management Last administered on 03/10/17 19:34; Start 03/10/17 at 17:45 Pantoprazole Sodium (Protonix) 40 mg DAILY PO Last administered on 03/11/17t 11: 43; Start 03/11/17 at 09:00 Cefazolin Sodium (Ancef Inj) 2,000 mg STK-MED ONCE .ROUTE ; Start 03/11/17 at 07: 19; Stop 03/11/17 at 07:20; Status DC Gentamicin Sulfate (Gentamicin Inj) 240 mg STK-MED ONCE .ROUTE ; Start 03/11/17 at 07:19; Stop 03/11/17 at 07:20; Status DC Vancomycin HCl (Vancomycin Inj) 1,000 mg STK-MED ONCE .ROUTE ; Start 03/11/17 at 07:19; Stop 03/11/17 at 07:20; Status DC Vancomycin HCl (Vancomycin Inj) 2,000 mg STK-MED ONCE .ROUTE ; Start 03/11/17 at 07:33; Stop 03/11/17 at 07:34; Status DC Lactated Ringer's 1,000 ml @ 30 mls/hr Q24H PRN IV SEE LABEL COMMENTS; Start at 08:45; Stop 03/14/17 at 08:44 Sodium Chloride 500 ml @ 30 mls/hr [id number] PRN IV SEE LABEL COMMENTS; Start 03/11/17 at 08:45; Stop 03/14/17 at 08:44 Metoprolol Tartrate (Lopressor) 25 mg [employer] PRN PO SEE LABEL COMMENTS; Start 03/11/17 at 08:45; Stop 03/14/17 at 08:44 Povidone Iodine (Betadine 5% Antisepsis Kit) 1 applic [employer] PRN EACH NARE SEE LABEL COMMENTS; Start 03/11/17 at 08:45; Stop 03/14/17 at 08:44 Chlorhexidine Gluconate (Chlorhexidine 2% Cloth) 3 pack [employer] PRN TOPICAL SEE LABEL COMMENTS; Start 03/11/17 at 08:45; Stop 03/14/17 at 08:44 Insulin Human Regular (NovoLIN R INJ) See Protocol Table ... [employer] PRN SQ SEE PROTOCOL TABLE; Start 03/11/17 at 08:45; Stop 03/14/17 at 08:44 Vascular Central Line Catheter: No A/P Problem List: (1) Mechanical heart valve present ICD Code: Z95.2 - Presence of prosthetic heart valve (2) Hx of CABG ICD Code: Z95.1 - Presence of aortocoronary bypass graft Status: Acute (3) Aortic valve replaced ICD Code: Z95.2 - Presence of prosthetic heart valve Status: Acute (4) Dementia with behavioral disturbance ICD Code: F03.91 - Unspecified dementia with behavioral disturbance Status: Chronic (5) Fracture of femoral neck, left ICD Code: S72.002A - Fracture of unspecified part of neck of left femur, initial encounter for closed fracture (6) Pacemaker ICD Code: Z95.0 - Presence of cardiac pacemaker (7) HTN (hypertension) ICD Code: I10 - Essential (primary) hypertension Status: Chronic (8) CAD (coronary artery disease) ICD Code: I25.10 - Atherosclerotic heart disease of [place] coronary artery without angina pectoris Status: Chronic (9) Atrial fibrillation ICD Code: I48.91 - Unspecified atrial fibrillation Assessment and Plan Patient has left femoral neck fracture Will consult orthopedic surgery. Patient will be moderate risk for surgery due to advancing dementia or coronary disease and history of aortic valve mechanical valve Will need to be started on heparin if no surgery is planned within the next day or so--will hold heparin drip starting at 2 AM to the patient to have surgery tomorrow Hypertension Continue on her home medications Dementia continue on all her home medications Anxiety and depression continue on home medications Coronary artery disease history of CABG continue on home medications Heparin for the mechanical aortic valve or nothing surgery planned sooner hold at 2 AM so patient can have surgery tomorrow SCDs and JAD madrid for DVT PPI for GI prophylaxis Will need to restart Coumadin in the future due to her chronic mechanical valve Levi Francois DO Mar 11, 2017 12:04
[2017-03-11] MEDS: ACETAMINOPHEN/HYDROcodone 325 MG/5 MG TAB PO PRN ×2 (15:16→21:43)
[2017-03-11] MEDS: cefTRIAXone INJ 1,000 MG in SODIUM CHLORIDE 0.9% INJ 100 ML IV SCH (17:08)
[2017-03-11 19:31] LABS: APTT (PATIENT) 57.4 SEC (24.3-30.1)
--- NOTE | 2017-03-11 19:57 | EKG ---
Date Performed: 03/11/2017 Time Performed: 11:17:28 PTAGE: 86 years EKG: ELECTRONIC VENTRICULAR PACEMAKER ABNORMAL RHYTHM ECG PREVIOUS TRACING : 01/13/2017 15.42 DOCTOR: Misa Mustafa Interpretating Date/Time 03/11/2017 19:55:46
[2017-03-11] MEDS: HEPARIN-D5W 25,000 U/250 ML 250 ML IV PRN (21:41)
[2017-03-11] MEDS: DONEPEZIL HCL 5 MG TAB PO SCH (21:43)
[2017-03-11] MEDS: QUEtiapine FUMARATE 25 MG TAB PO SCH (21:44)
[2017-03-11] MEDS: ATORVASTATIN 40 MG TAB PO SCH (21:44)
[2017-03-12] VITALS: BP 102/54; PULSE 60; RESP 16; TEMP 98.4; O2SAT 96
[2017-03-12] MEDS: ACETAMINOPHEN/HYDROcodone 325 MG/5 MG TAB PO PRN (03:16)
[2017-03-12 04:00] VITALS: BP 130/74; PULSE 84; RESP 18; TEMP 97.9; O2SAT 96
[2017-03-12] MEDS: ISOSORBIDE MONONITRATE 60 MG TAB PO SCH (06:34)
--- NOTE | 2017-03-12 07:13 | PD.ORT.PN ---
Subjective Subjective Remarks [facility]/p fall at [facility] apparently 4-5 days ago. patient demented and speaks [place]. was placed on heparin drip yesterday Objective Vitals Vital Signs Date Time Temp Pulse Resp B/P (MAP) Pulse Ox O2 Delivery O2 Flow Rate FiO2 03/12/17 00:00 98.4 60 16 102/54 (70) 96 03/11/17 20:00 97.5 62 16 126/59 (81) 95 03/11/17 20:00 Nasal Cannula 2.00 03/11/17 20:00 61 03/11/17 16:00 Nasal Cannula 2.00 03/11/17 16:00 98.9 75 20 161/75 (103) 96 03/11/17 12:00 99.4 70 20 152/70 (97) 94 03/11/17 12:00 Nasal Cannula 2.00 03/11/17 08:00 Nasal Cannula 2.00 03/11/17 08:00 98.4 60 20 133/59 (83) 94 03/11/17 07:40 67 I/O 03/11/17 03/11/17 03/11/17 03/12/17 03/12/17 03/12/17 07:00 15:00 23:00 07:00 15:00 23:00 Intake Total 920 ml 100 ml 31 ml Output Total 550 ml Balance 370 ml 100 ml 31 ml Intake Oral 0 ml IV Total 920 ml 100 ml 31 ml Output Urine Total 550 ml Result Diagram: 03/11/17 0100 03/11/17 0100 Imaging Last [address] Angiography 03/10/17 1518 Signed Impressions: Service Date/Time: Friday, March 10, 2017 15:44 - CONCLUSION: Cardiomegaly with reflux into the hepatic veins. There is no central pulmonary emboli. Minimal aneurysmal dilatation descending aorta. Levi Delaney MD FACR Hip and Pelvis X-Ray 03/10/17 1422 Signed Impressions: Service Date/Time: Friday, March 10, 2017 14:51 - CONCLUSION: Probable femoral neck fracture. CT scan would be of benefit. Levi Delaney MD FACR Chest X-Ray 03/10/17 1422 Signed Impressions: Service Date/Time: Friday, March 10, 2017 14:54 - CONCLUSION: No acute disease. Levi Delaney MD FACR Objective Remarks LLE: minimal pain with motion. in restraints. Assessment & Plan Assessment and Plan 1) Left Femoral Neck fx -APTT normalized -plan for surgery today Larry Knight Mar 12, 2017 07:13
[2017-03-12] MEDS: SODIUM CHLOR 0.45% 1000 ML INJ 1,000 ML IV SCH (08:20)
[2017-03-12] MEDS ORDERED: SODIUM CHLOR 0.9% 250 ML INJ 250 ML ONE (08:50)
[2017-03-12] MEDS ORDERED: VANCOMYCIN HCL 1000 MG VIAL ONE (08:50)
[2017-03-12] MEDS: PANTOPRAZOLE SOD 40 MG DELAYED RELEASE TAB PO SCH ×2 (09:00→13:01)
[2017-03-12] MEDS: SERTRALINE HCL 100 MG TAB PO SCH ×2 (09:00→13:01)
[2017-03-12] MEDS: DOCUSATE SODIUM 50 MG/SENNA 8.6 MG TAB PO SCH ×2 (09:00→23:13)
[2017-03-12] MEDS: ATENOLOL 25 MG TAB PO SCH ×2 (09:00→13:01)
[2017-03-12] MEDS: SODIUM CHLORIDE 0.9% FLUSH 10 ML FLUSH IV FLUSH SCH ×2 (09:00→23:13)
[2017-03-12] MEDS: MEMANTINE HCL 10 MG TAB PO SCH ×2 (09:00→23:11)
[2017-03-12] MEDS ORDERED: ceFAZolin INJ 1,000 MG VIAL ONE (09:12)
[2017-03-12] MEDS ORDERED: BUPIVACAINE/EPINEPHRINE 0.25% 50 ML VIAL ONE (10:23)
[2017-03-12] MEDS ORDERED: Post-op Orders (for Pharmacy) MISC XX ONE (10:30)
[2017-03-12] MEDS ORDERED: ACETAMINOPHEN/HYDROcodone 325 MG/5 MG TAB PO PRN (10:30)
[2017-03-12] MEDS ORDERED: ERGOCALCIFEROL (VIT D2) 50,000 UNIT CAP PO ONE (10:30)
[2017-03-12] MEDS ORDERED: SODIUM CHLORIDE 0.9% FLUSH 5 ML FLUSH IVF PRN (10:30)
--- NOTE | 2017-03-12 10:32 | PD.OP ---
cc: Anastacio Belle MD Operative Report Date of Surgery: Mar 12, 2017 Preoperative Diagnosis: Impacted left femoral neck fracture Postoperative Diagnosis: Procedure: Left hip pinning Surgeon: Anastacio Belle Subway Operator(s): HERMILA Muse PA-C The surgical procedure was assisted by my physician shipping assistant. My P.A. presence was necessary throughout this case for the manipulation and positioning of the surgical extremity. My P.A. was assisting me throughout the duration of this procedure. The skill set of a physician shipping assistant was medically necessary to complete this procedure. During the surgical case the surgical garment assembly supervisor was working at the back table and the physician shipping assistant was directly assisting me. Operation and Findings: Plan of activity: TTWBx3 weeks, then 50% weightbearing 3 weeks Patient was seen and evaluated preoperatively. The patient has significant hip pain from impacted femoral neck fracture. The risk and benefits of surgery were discussed in depth with the patient to include bleeding infection nonunion malunion, avascular necrosis and need for hip replacement painful hardware as well as medical competitions including but not stroke heart attack and . Informed consent was obtained. Operative site was marked. Patient was brought to the operating room and placed on fracture table. IV sedation was administered by anesthesiologist. Timeout procedure was performed. Hip and leg were prepped with alcohol followed by Hibiclens and draped in the usual sterile fashion. IV antibiotics were given prior to incision. Procedure began with evaluation of fracture under fluoroscopy. Leg was gently manipulated to improve alignment. Excellent reduction was achieved. Fluoroscopy was used to confirm reduction. A three cm incision was along the lateral aspect of the proximal femur . Subcutaneous tissue was dissected bluntly. Three guidepins were placed through the lateral cortex of the proximal femur. Guide pins were placed in an inverted triangle position. Guide pins were advanced across the fracture site into the femoral head. Fluoroscopy confirmed appropriate guidepin placement. The screw lengths were measured. A cannulated drill was placed over each of the guide pins. Appropriate length Synthes 7.3 cannulated screws were placed over the guidepins. Good compression was applied across the fracture. Final fluoroscopy revealed well aligned fracture with well-placed hardware. Incision was closed with 3-0 Vicryl and dolores. Sterile dressings were applied. Patient was awakened and transferred to recovery room. Anastacio Belle MD Mar 12, 2017 10:32
[2017-03-12] MEDS ORDERED: DO NOT ADM ANY ANTICOAGULANT DRUGS PRN (10:58)
[2017-03-12] MEDS ORDERED: *RESP: ALBUTEROL 2.5 MG/3 ML NEB (PRN) PERIprocedural Use ONLY NEB ONE (11:50)
[2017-03-12] MEDS ORDERED: *LABETALOL HCL 100 MG/20 ML VIAL PERIprocedural Use ONLY ONE (11:53)
[2017-03-12] MEDS ORDERED: ONDANSETRON HCL 4 MG/2 ML VIAL IV PUSH ONE (12:00)
[2017-03-12] MEDS ORDERED: PROPOFOL 200 MG/20 ML AMP IV ONE (12:00)
[2017-03-12] MEDS ORDERED: NEOSTIGMINE 3 MG/3 ML SYR IV ONE (12:00)
[2017-03-12] MEDS ORDERED: PHENYLEPH/NS 1000 MCG/10 ML SYR IV ONE (12:00)
[2017-03-12] MEDS ORDERED: NALOXONE HCL 0.4 MG/ML AMP IV ONE (12:00)
[2017-03-12 13:43] VITALS: O2SAT 93
--- NOTE | 2017-03-12 14:03 | HHI.PR ---
Subjective Remarks Patient is a 86-year-old [facility] patient. Who presented to the emergency department with pain in the left hip. Patient was found to have a left femoral neck fracture. Patient is confused and demented. Patient is normally similarly somewhat ambulatory without assistance has not been moving for the last 4 days since her fall Patient was brought to the emergency department for evaluation of her left femoral neck fracture will undergo go evaluation with orthopedic surgery and will keep her nothing by mouth in case surgery is tomorrow Patient is supposed to have a mechanical valve. For which she supposed to be on chronic Coumadin but is subtherapeutic at this time will hold this so that she can have surgery as soon as possible We'll started on a heparin drip that can be discontinued once surgery decide when to take her to fix the hip 9- surgery decided to perform surgery tomorrow Will hold heparin drip starting at 2 AM tonight A.m. labs No new complaints Will need long-term anticoagulation due to her chronic mechanical valve 03-12 HAD SURGERY TODAY Date of Surgery: Mar 12, 2017 Preoperative Diagnosis: Impacted left femoral neck fracture Postoperative Diagnosis: Procedure: Left hip pinning Surgeon: Anastacio Belle SEEN POST OP IN HER ROOM DW PT AND FAMILY NO NEW COMPLAINTS WILL NEED REHAB AFTER DC WILL NEED TO BE RELOADED ON COUMADIN Objective Vitals Vital Signs Date Time Temp Pulse Resp B/P (MAP) Pulse Ox O2 Delivery O2 Flow Rate FiO2 03/12/17 13:43 93 03/12/17 12:15 98.4 75 23 164/72 (102) 98 Nasal Cannula 4 03/12/17 12:00 80 21 175/83 (113) 100 Nasal Cannula 4 03/12/17 11:45 90 21 193/89 (123) 98 Nasal Cannula 4 03/12/17 11:30 90 20 175/80 (111) 96 Simple Mask 10 03/12/17 11:15 98 24 182/81 (114) 92 Simple Mask 10 03/12/17 10:59 97.6 100 24 184/81 (115) 88 Nasal Cannula 4 03/12/17 07:30 Nasal Cannula 2.00 03/12/17 04:00 97.9 84 18 130/74 (92) 96 03/12/17 00:00 98.4 60 16 102/54 (70) 96 03/11/17 20:00 97.5 62 16 126/59 (81) 95 03/11/17 20:00 Nasal Cannula 2.00 03/11/17 20:00 61 03/11/17 16:00 Nasal Cannula 2.00 03/11/17 16:00 98.9 75 20 161/75 (103) 96 I/O 03/11/17 03/11/17 03/11/17 03/12/17 03/12/17 03/12/17 07:00 15:00 23:00 07:00 15:00 23:00 Intake Total 920 ml 100 ml 31 ml 900 ml Output Total 550 ml 450 ml 815 ml Balance 370 ml 100 ml -419 ml 85 ml Intake Oral 0 ml 0 ml IV Total 920 ml 100 ml 31 ml Other 900 ml Output Urine Total 550 ml 450 ml 800 ml Estimated Blood Loss 15 ml # Bowel Movements 0 Result Diagram: 03/11/17 0100 03/11/17 0100 Other Results Laboratory Tests Test 03/10/17 14:20 03/10/17 15:30 03/11/17 01:00 03/11/17 05:06 White Blood Count 8.2 TH/MM3 8.0 TH/MM3 Red Blood Count 3.68 MIL/MM3 3.22 MIL/MM3 Hemoglobin 11.4 GM/DL 10.0 GM/DL Hematocrit 34.3 % 30.2 % Mean Corpuscular Volume 93.2 FL 93.8 FL Mean Corpuscular Hemoglobin 30.9 PG 31.2 PG Mean Corpuscular Hemoglobin Concent 33.2 % 33.2 % Red Cell Distribution Width 15.2 % 15.7 % Platelet Count 243 TH/MM3 191 TH/MM3 Mean Platelet Volume 8.7 FL 8.5 FL Neutrophils (%) (Auto) 68.6 % 82.0 % Lymphocytes (%) (Auto) 18.6 % 9.7 % Monocytes (%) (Auto) 8.8 % 6.6 % Eosinophils (%) (Auto) 3.6 % 1.5 % Basophils (%) (Auto) 0.4 % 0.2 % Neutrophils # (Auto) 5.6 TH/MM3 6.5 TH/MM3 Lymphocytes # (Auto) 1.5 TH/MM3 0.8 TH/MM3 Monocytes # (Auto) 0.7 TH/MM3 0.5 TH/MM3 Eosinophils # (Auto) 0.3 TH/MM3 0.1 TH/MM3 Basophils # (Auto) 0.0 TH/MM3 0.0 TH/MM3 CBC Comment DIFF FINAL DIFF FINAL Differential Comment Prothrombin Time 15.1 SEC Prothromb Time International Ratio 1.3 RATIO Activated Partial Thromboplast Time 25.4 SEC GREATER THAN 277.5 SEC Blood Urea Nitrogen 30 MG/DL 21 MG/DL Creatinine 1.31 MG/DL 0.99 MG/DL Random Glucose 92 MG/DL 121 MG/DL Total Protein 6.9 GM/DL 6.3 GM/DL Albumin 3.1 GM/DL 2.9 GM/DL Calcium Level 8.5 MG/DL 7.8 MG/DL Alkaline Phosphatase 132 U/L 106 U/L Aspartate Amino Transf (AST/SGOT) 28 U/L 16 U/L Alanine Aminotransferase (ALT/SGPT) 20 U/L 15 U/L Total Bilirubin 0.3 MG/DL 0.3 MG/DL Sodium Level 142 MEQ/L 142 MEQ/L Potassium Level 4.4 MEQ/L 3.8 MEQ/L Chloride Level 110 MEQ/L 110 MEQ/L Carbon Dioxide Level 25.5 MEQ/L 25.7 MEQ/L Anion Gap 7 MEQ/L 6 MEQ/L Estimat Glomerular Filtration Rate 39 ML/MIN 53 ML/MIN Urine Color YELLOW Urine Turbidity HAZY Urine pH 5.5 Urine Specific [place] 1.019 Urine Protein TRACE mg/dL Urine Glucose (UA) NEG mg/dL Urine Ketones NEG mg/dL Urine Occult Blood MOD Urine Nitrite POS Urine Bilirubin NEG Urine Urobilinogen LESS THAN 2.0 MG/DL Urine Leukocyte Esterase MOD Urine RBC 34 /hpf Urine WBC 29 /hpf Urine Squamous Epithelial Cells <1 /hpf Urine Bacteria MANY /hpf Urine Hyaline Casts 6 /lpf Urine Mucus FEW /lpf Microscopic Urinalysis Comment CATH-CULTURE IND Phosphorus Level 3.9 MG/DL Magnesium Level 1.9 MG/DL Hemoglobin A1c 5.9 % Free Thyroxine 0.88 NG/DL Thyroid Stimulating Hormone 3rd Gen 0.508 uIU/ML Test 03/11/17 10:17 03/11/17 18:09 Activated Partial Thromboplast Time 48.0 SEC 57.4 SEC Imaging Last Impressions CT Angiography 03/10/17 9478 Signed Impressions: Service Date/Time: Friday, March 10, 2017 15:44 - CONCLUSION: Cardiomegaly with reflux into the hepatic veins. There is no central pulmonary emboli. Minimal aneurysmal dilatation descending aorta. Levi Delaney MD FACR Hip and Pelvis X-Ray 03/10/17 1422 Signed Impressions: Service Date/Time: Friday, March 10, 2017 14:51 - CONCLUSION: Probable femoral neck fracture. CT scan would be of benefit. Levi Delaney MD FACR Chest X-Ray 03/10/17 1422 Signed Impressions: Service Date/Time: Friday, March 10, 2017 14:54 - CONCLUSION: No acute disease. Levi Delaney MD FACR Pelvis CT 03/10/17 0000 Signed Impressions: Service Date/Time: Friday, March 10, 2017 15:51 - CONCLUSION: 1. Subtle slightly impacted subcapital left hip fracture. 2. Osteopenia and degenerative change in the lumbar spine. 3. Diverticulosis. Ruben Dalton MD Objective Remarks GENERAL: This is a well-nourished, well-developed patient, in no apparent distress.dementia not oriented and not speaking [place]ian SKIN: No rashes, ecchymoses or lesions. Cool and dry. HEAD: Atraumatic. Normocephalic. No temporal or scalp tenderness. EYES: Pupils equal round and reactive. Extraocular motions intact. No scleral icterus. No injection or drainage. ENT: Nose without bleeding, purulent drainage or septal hematoma. Throat without erythema, tonsillar hypertrophy or exudate. Uvula midline. Airway patent. NECK: Trachea midline. No JVD or lymphadenopathy. Supple, nontender, no meningeal signs. CARDIOVASCULAR: IRRegular rate and rhythm without murmurs, gallops, or rubs. Paced rate and rhythm S1-S2 no S3 or S4 does have a click RESPIRATORY: Clear to auscultation. Breath sounds equal bilaterally. No wheezes , rales, or rhonchi. GASTROINTESTINAL: Abdomen soft, non-tender, nondistended. No hepato-splenomegaly , or palpable masses. No guarding. MUSCULOSKELETAL: Extremities without clubbing, cyanosis, or edema. No joint tenderness, effusion, or edema noted. No calf tenderness. Negative Homans sign bilaterally. Tender left hip increased range of motion NEUROLOGICAL: Awake and alert but very confused. Cranial nerves II through XII intact. Motor and sensory grossly within normal limits. 4 out of 5 muscle strength in all muscle groups. ABNormal speech. Insight and judgment not able to be measured Patient is actively demented mood and behavior inappropriate Procedures Date of Surgery: Mar 12, 2017 Preoperative Diagnosis: Impacted left femoral neck fracture Postoperative Diagnosis: Procedure: Left hip pinning Surgeon: Anastacio Belle Medications and IVs Current Medications Sodium Chloride 1,000 ml @ 150 mls/hr ONCE ONCE IV Last administered on 15:19; Start 03/10/17 at 14:30; Stop 03/10/17 at 21:09; Status DC Morphine Sulfate (Morphine Inj) 2 mg ONCE ONCE IV PUSH Last administered on 15:35; Start 03/10/17 at 15:30; Stop 03/10/17 at 15:31; Status DC Ondansetron HCl (Zofran Inj) 4 mg ONCE ONCE IV PUSH Last administered on 16:21; Start 03/10/17 at 15:30; Stop 03/10/17 at 15:31; Status DC Iodixanol (VISIPAQUE 320 INJ (Rad CT)) 50 ml STK-MED ONCE IV ; Start 03/10/17 at 16:21; Stop 03/10/17 at 16:22; Status DC Sodium Chloride 1,000 ml @ 75 mls/hr [id number] IV Last administered on 03/11/17 21:45; Start 03/10/17 at 16:20 Sodium Chloride (NS Flush) 2 ml UNSCH PRN IV FLUSH FLUSH AFTER USING IV ACCESS ; Start 03/10/17 at 16:30 Sodium Chloride (NS Flush) 2 ml BID IV FLUSH Last administered on 03/11/17 21: 44; Start 03/10/17 at 21:00 Acetaminophen (Tylenol) 650 mg Q4H PRN PO TEMP > 100.4; Start 03/10/17 at 16:30 Ondansetron HCl (Zofran Inj) 4 mg Q6H PRN IVP NAUSEA OR VOMITING; Start at 16:30 Prochlorperazine (Compazine Supp) 25 mg Q12H PRN RECTAL NAUSEA OR VOMITING; Start 03/10/17 at 16:30 Acetaminophen (Tylenol) 650 mg Q6H PRN PO PAIN SCALE 1 TO 2; Start 03/10/17 at 16:30 Acetaminophen/ Hydrocodone Bitart (Nemacolin 5-325 Mg) 1 tab Q4H PRN PO PAIN SCALE 3 TO 5 Last administered on 03/12/17 03:16; Start 03/10/17 at 16:30 Acetaminophen/ Hydrocodone Bitart ([place]em[place]olin 10-325 Mg) 1 tab Q4H PRN PO PAIN SCALE 6 TO 10; Start 03/10/17 at 16:30 Morphine Sulfate (Morphine Inj) 2 mg Q3H PRN IV Pain 3-5; if unable to take PO Last administered on 03/11/17 01:29; Start 03/10/17 at 16:30 Morphine Sulfate (Morphine Inj) 4 mg Q3H PRN IV Pain 6-10;if unable to take PO Last administered on 03/10/17 21:32; Start 03/10/17 at 16:30 Naloxone HCl (Narcan Inj) 0.4 mg UNSCH PRN IV SEE LABEL COMMENTS; Start at 16:30 Senna/Docusate Sodium (Soila-Colace) 1 tab BID PO Last administered on 03/11/17 21:44; Start 03/10/17 at 21:00 Magnesium Hydroxide (Milk Of Magnesia Liq) 30 ml Q12H PRN PO MILD - MODERATE CONSTIPATION; Start 03/10/17 at 16:30 Sennosides (Senokot) 17.2 mg Q12H PRN PO MODERATE - SEVERE CONSTIPATION; Start 03/10/17 at 16:30 Bisacodyl (Dulcolax Supp) 10 mg DAILY PRN RECTAL SEVERE CONSITIPATION; Start at 16:30 Lactulose (Lactulose Liq) 30 ml DAILY PRN PO SEVERE CONSITIPATION; Start at 16:30 Ceftriaxone Sodium 1000 mg/ Sodium Chloride 100 ml @ 200 mls/hr Q24H IV Last administered on 03/11/17 17:08; Start 03/10/17 at 18:00 Atenolol (Tenormin) 25 mg DAILY PO Last administered on 03/12/17 13:01; Start 03/11/17 at 09:00 Atorvastatin Calcium (Lipitor) 40 mg HS PO Last administered on 03/11/17 21:44 ; Start 03/10/17 at 21:00 Donepezil HCl (Aricept) 10 mg HS PO Last administered on 03/11/17 21:43; Start 03/10/17 at 21:00 Isosorbide Mononitrate (Imdur) 60 mg DAILY@0700 PO Last administered on 06:34; Start 03/11/17 at 07:00 Memantine (Namenda) 10 mg BID PO Last administered on 03/11/17 21:44; Start 03/10/17 at 21:00 Quetiapine Fumarate (SEROquel) 50 mg HS PO Last administered on 03/11/17 21:44 ; Start 03/10/17 at 21:00 Sertraline HCl (Zoloft) 100 mg DAILY PO Last administered on 03/12/17 13:01; Start 03/11/17 at 09:00 Heparin Sodium (Porcine) (Heparin Inj) 4,000 units ONCE ONCE IV Last administered on 03/10/17 18:46; Start 03/10/17 at 17:45; Stop 03/10/17 at 17:56; Status DC Heparin Sodium/ Dextrose 250 ml @ 9.72 mls/hr TITRATE PRN IV Coagulation management Last administered on 03/11/17 21:41; Start 03/10/17 at 17:45 Pantoprazole Sodium (Protonix) 40 mg DAILY PO Last administered on 03/12/17 13: 01; Start 03/11/17 at 09:00 Cefazolin Sodium (Ancef Inj) 2,000 mg STK-MED ONCE .ROUTE ; Start 03/11/17 at 07: 19; Stop 03/11/17 at 07:20; Status DC Gentamicin Sulfate (Gentamicin Inj) 240 mg STK-MED ONCE .ROUTE ; Start 03/11/17 at 07:19; Stop 03/11/17 at 07:20; Status DC Vancomycin HCl (Vancomycin Inj) 1,000 mg STK-MED ONCE .ROUTE ; Start 03/11/17 at 07:19; Stop 03/11/17 at 07:20; Status DC Vancomycin HCl (Vancomycin Inj) 2,000 mg STK-MED ONCE .ROUTE ; Start 03/11/17 at 07:33; Stop 03/11/17 at 07:34; Status DC Lactated Ringer's 1,000 ml @ 30 mls/hr Q24H PRN IV SEE LABEL COMMENTS; Start at 08:45; Stop 03/14/17 at 08:44 Sodium Chloride 500 ml @ 30 mls/hr [id number] PRN IV SEE LABEL COMMENTS; Start 03/11/17 at 08:45; Stop 03/14/17 at 08:44 Metoprolol Tartrate (Lopressor) 25 mg [employer] PRN PO SEE LABEL COMMENTS; Start 03/11/17 at 08:45; Stop 03/14/17 at 08:44 Povidone Iodine (Betadine 5% Antisepsis Kit) 1 applic [employer] PRN EACH NARE SEE LABEL COMMENTS; Start 03/11/17 at 08:45; Stop 03/14/17 at 08:44 Chlorhexidine Gluconate (Chlorhexidine 2% Cloth) 3 pack [employer] PRN TOPICAL SEE LABEL COMMENTS; Start 03/11/17 at 08:45; Stop 03/14/17 at 08:44 Insulin Human Regular (NovoLIN R INJ) See Protocol Table ... [employer] PRN SQ SEE PROTOCOL TABLE; Start 03/11/17 at 08:45; Stop 03/14/17 at 08:44 Vancomycin HCl (Vancomycin Inj) 1,000 mg STK-MED ONCE .ROUTE Last administered on 03/12/17 09:56; Start 03/12/17 at 08:50; Stop 03/12/17 at 08:51; Status DC Sodium Chloride 250 ml @ As Directed STK-MED ONCE .ROUTE ; Start 03/12/17 at 08: 50; Stop 03/12/17 at 08:51; Status DC Cefazolin Sodium (Ancef Inj) 1,000 mg STK-MED ONCE .ROUTE Last administered on 03/12/17 09:57; Start 03/12/17 at 09:12; Stop 03/12/17 at 09:13; Status DC Bupivacaine HCl/ Epinephrine Bitart (Sensorcaine-Epinephrine 0.25% Inj) 50 ml STK-MED ONCE .ROUTE Last administered on 03/12/17 10:00; Start 03/12/17 at 10:23 ; Stop 03/12/17 at 10:24; Status DC IV Flush (NS Flush) 2 ml UNSCH PRN IVF FLUSH AFTER USING IV ACCESS; Start at 10:30; Status UNV IV Flush (NS Flush) 2 ml BID IVF ; Start 03/12/17 at 21:00; Status UNV Miscellaneous Information (Post-op Orders (for Pharmacy)) STAT ONCE XX ; Start 03/12/17 at 10:30; Stop 03/12/17 at 10:31; Status UNV Acetaminophen/ Hydrocodone Bitart (Nemacolin 5-325 Mg) 1 tab Q4H PRN PO PAIN 3<10 ; Start 03/12/17 at 10:30; Status UNV Cefazolin Sodium 1000 mg/Sodium Chloride 100 ml @ 200 mls/hr Q6H IV ; Start 03/12/17 at 10:30; Stop 03/12/17 at 22:59; Status UNV Morphine Sulfate (Morphine Inj) 3 mg Q3H PRN IV PUSH break thru pain; Start 03/12/17 at 10:30; Status UNV Ergocalciferol (Drisdol) 50,000 units ONCE ONCE PO ; Start 03/12/17 at 10:30; Stop 03/12/17 at 10:31; Status UNV Cholecalciferol (Vitamin D3) 5,000 units DAILY PO ; Start 03/13/17 at 09:00; Status UNV Warfarin Sodium (Coumadin) 3 mg DAILY PO ; Start 03/12/17 at 16:00; Status UNV Albuterol Sulfate (*ALBUTEROL NEB PERIprocedure ONLY) 2.5 mg STK-MED ONCE NEB Last administered on 03/12/17 11:51; Start 03/12/17 at 11:50; Stop 03/12/17 at 11: 51; Status DC Fentanyl Citrate (fentaNYL INJ) 100 mcg STK-MED ONCE .ROUTE ; Start 03/12/17 at 11:53; Stop 03/12/17 at 11:54; Status DC Labetalol HCl (*TRANDATE INJ PERIprocedural Use ONLY) 100 mg STK-MED ONCE .ROUTE Last administered on 03/12/17 11:54; Start 03/12/17 at 11:53; Stop at 11:54; Status DC A/P Problem List: (1) Mechanical heart valve present ICD Code: Z95.2 - Presence of prosthetic heart valve (2) Hx of CABG ICD Code: Z95.1 - Presence of aortocoronary bypass graft Status: Acute (3) Aortic valve replaced ICD Code: Z95.2 - Presence of prosthetic heart valve Status: Acute (4) Dementia with behavioral disturbance ICD Code: F03.91 - Unspecified dementia with behavioral disturbance Status: Chronic (5) Fracture of femoral neck, left ICD Code: S72.002A - Fracture of unspecified part of neck of left femur, initial encounter for closed fracture (6) Pacemaker ICD Code: Z95.0 - Presence of cardiac pacemaker (7) HTN (hypertension) ICD Code: I10 - Essential (primary) hypertension Status: Chronic (8) CAD (coronary artery disease) ICD Code: I25.10 - Atherosclerotic heart disease of [place] coronary artery without angina pectoris Status: Chronic (9) Atrial fibrillation ICD Code: I48.91 - Unspecified atrial fibrillation Assessment and Plan Patient has left femoral neck fracture Will consult orthopedic surgery. Patient will be moderate risk for surgery due to advancing dementia or coronary disease and history of aortic valve mechanical valve Will need to be started on heparin if no surgery is planned within the next day or so--will hold heparin drip starting at 2 AM So the patient to have surgery tomorrow Hypertension Continue on her home medications Dementia continue on all her home medications Anxiety and depression continue on home medications Coronary artery disease history of CABG continue on home medications Heparin for the mechanical aortic valve or nothing surgery planned sooner hold at 2 AM so patient can have surgery tomorrow Date of Surgery: Mar 12, 2017 Preoperative Diagnosis: Impacted left femoral neck fracture Postoperative Diagnosis: Procedure: Left hip pinning Surgeon: Anastacio Belle SCDs and JAD madrid for DVT PPI for GI prophylaxis Will need to restart Coumadin in the future due to her chronic mechanical valve DAILY INR Levi Francois DO Mar 12, 2017 14:03
--- NOTE | 2017-03-12 14:25 | RADRPT ---
EXAM DATE/TIME: 03/12/2017 10:21 [facility] COMPARISON: HIP LEFT (AP&LAT 2/3VWS) W AP PELVIS, March 10, 2017, 14:51. INDICATIONS : Left hip pinning. OR. MEDICAL HISTORY : Cardiovascular disease. Hypertension SURGICAL HISTORY : None. ENCOUNTER: Initial ACUITY: 1 day PAIN SCORE: Non-responsive. LOCATION: Left hip FINDINGS: Subcapital fracture of the left femur has been fixed with 3 trochanteric screws. Near-anatomic alignm ent. No new fracture. No subluxation. CONCLUSION: Screw fixation of the left hip subcapital fracture. Near-anatomic alignment. No acute complication de monstrated. Ruben Aguirre MD on March 12, 2017 at 14:22 Board Certified Radiologist. This report was verified electronically.
[2017-03-12 16:00] VITALS: BP 135/67; PULSE 85; RESP 20; TEMP 97; O2SAT 96
[2017-03-12 16:13] LABS: AUTOMATED NEUTROPHIL # 7.1 TH/MM3 (1.8-7.7); BASOPHIL % 0.2 % (0.0-2.0); EOSINOPHIL # 0.1 TH/MM3 (0-0.4); EOSINOPHIL % 1.5 % (0.0-4.0); HEMATOCRIT 27.9 % (35.0-46.0); HEMO FLAGS DIFF FINAL; LYMPHOCYTE # 0.4 TH/MM3 (1.0-4.8); MEAN CELL VOLUME 93.5 FL (80.0-100.0); MEAN CORPUSCULAR HEMOGLOBIN 31.9 PG (27.0-34.0); MEAN CORPUSCULAR HGB CONC 34.1 % (32.0-36.0); MONO % 3.1 % (0.0-8.0); NEUT % 90.2 % (16.0-70.0); PLATELET COUNT 160 TH/MM3 (150-450); RED BLOOD COUNT 2.98 MIL/MM3 (4.00-5.30); RED CELL DISTRIBUTION WIDTH 15.5 % (11.6-17.2); WHITE BLOOD COUNT 7.9 TH/MM3 (4.0-11.0)
[2017-03-12 16:30] LABS: APTT (PATIENT) 40.7 SEC (24.3-30.1)
[2017-03-12 16:49] LABS: INTERNATIONAL NORMALIZED RATIO 1.3 RATIO; PROTHROMBIN TIME - PATIENT 14.7 SEC (9.8-11.6)
[2017-03-12] MEDS: MORPHINE SULFATE 4 MG/ML INJ IV PUSH PRN (16:52)
[2017-03-12] MEDS: WARFARIN SOD 3 MG TAB PO SCH (16:58)
[2017-03-12 17:24] LABS: ALKALINE PHOSPHATASE 108 U/L (45-117); ALT (GPT) 30 U/L (10-53); ANION GAP 7 MEQ/L (5-15); AST (GOT) 28 U/L (15-37); BICARBONATE 24.6 MEQ/L (21.0-32.0); BLOOD UREA NITROGEN 8 MG/DL (7-18); CHLORIDE 110 MEQ/L (98-107); GLOMERULAR FILTRATION RATE 72 ML/MIN (>89); MAGNESIUM 1.9 MG/DL (1.5-2.5); POTASSIUM 3.4 MEQ/L (3.5-5.1); SODIUM (NA) 142 MEQ/L (136-145); TOTAL BILIRUBIN ADULT 0.4 MG/DL (0.2-1.0)
[2017-03-12] MEDS: cefTRIAXone INJ 1,000 MG in SODIUM CHLORIDE 0.9% INJ 100 ML IV SCH (18:12)
[2017-03-12 20:00] VITALS: BP 153/73; PULSE 64; RESP 18; TEMP 99.2; O2SAT 96
[2017-03-12] MEDS: SODIUM CHLORIDE 0.9% FLUSH 5 ML FLUSH IVF SCH (21:00)
[2017-03-12 21:39] LABS: APTT (PATIENT) 57.1 SEC (24.3-30.1)
[2017-03-12] MEDS: ACETAMINOPHEN/HYDROcodone 325 MG/10 MG TAB PO PRN (23:11)
[2017-03-12] MEDS: DONEPEZIL HCL 5 MG TAB PO SCH (23:11)
[2017-03-12] MEDS: QUEtiapine FUMARATE 25 MG TAB PO SCH (23:12)
[2017-03-12] MEDS: ATORVASTATIN 40 MG TAB PO SCH (23:12)
[2017-03-13] VITALS (8 sets, daily range): BP systolic 127–183; BP diastolic 58–81; PULSE 67–77; RESP 18–19; TEMP 97.2–99.1; O2SAT 92–98
[2017-03-13] MEDS: SODIUM CHLOR 0.45% 1000 ML INJ 1,000 ML IV SCH ×3 (00:04→22:02)
[2017-03-13] MEDS: MORPHINE SULFATE 4 MG/ML INJ IV PUSH PRN (02:59)
[2017-03-13] MEDS: ISOSORBIDE MONONITRATE 60 MG TAB PO SCH (06:10)
[2017-03-13 06:16] LABS: AUTOMATED NEUTROPHIL # 5.6 TH/MM3 (1.8-7.7); BASOPHIL % 0.3 % (0.0-2.0); EOSINOPHIL # 0.5 TH/MM3 (0-0.4); EOSINOPHIL % 6.6 % (0.0-4.0); HEMATOCRIT 27.4 % (35.0-46.0); HEMO FLAGS DIFF FINAL; LYMPH % 12.7 % (9.0-44.0); MEAN CELL VOLUME 93.6 FL (80.0-100.0); MEAN CORPUSCULAR HEMOGLOBIN 31.2 PG (27.0-34.0); MEAN CORPUSCULAR HGB CONC 33.3 % (32.0-36.0); MONO % 7.2 % (0.0-8.0); NEUT % 73.2 % (16.0-70.0); PLATELET COUNT 171 TH/MM3 (150-450); RED BLOOD COUNT 2.93 MIL/MM3 (4.00-5.30); RED CELL DISTRIBUTION WIDTH 15.5 % (11.6-17.2); WHITE BLOOD COUNT 7.6 TH/MM3 (4.0-11.0)
[2017-03-13 06:26] LABS: INTERNATIONAL NORMALIZED RATIO 1.4 RATIO; PROTHROMBIN TIME - PATIENT 15.2 SEC (9.8-11.6)
[2017-03-13 06:47] LABS: ALT (GPT) 30 U/L (10-53); ANION GAP 8 MEQ/L (5-15); AST (GOT) 33 U/L (15-37); BICARBONATE 25.8 MEQ/L (21.0-32.0); BLOOD UREA NITROGEN 8 MG/DL (7-18); CHLORIDE 108 MEQ/L (98-107); GLOMERULAR FILTRATION RATE 64 ML/MIN (>89); MAGNESIUM 1.9 MG/DL (1.5-2.5); POTASSIUM 3.1 MEQ/L (3.5-5.1); SODIUM (NA) 142 MEQ/L (136-145)
[2017-03-13 06:49] LABS: ALKALINE PHOSPHATASE 102 U/L (45-117); TOTAL BILIRUBIN ADULT 0.3 MG/DL (0.2-1.0)
--- NOTE | 2017-03-13 06:57 | PD.ORT.PN ---
Subjective Subjective Remarks In restraints and confused Objective Vitals Vital Signs Date Time Temp Pulse Resp B/P (MAP) Pulse Ox O2 Delivery O2 Flow Rate FiO2 03/13/17 00:00 98.5 68 18 127/58 (81) 98 03/12/17 20:00 99.2 64 18 153/73 (99) 96 03/12/17 20:00 Nasal Cannula 2.00 03/12/17 16:00 97.0 85 20 135/67 (89) 96 03/12/17 14:00 98 Room Air 03/12/17 13:43 93 03/12/17 12:15 98.4 75 23 164/72 (102) 98 Nasal Cannula 4 03/12/17 12:00 80 21 175/83 (113) 100 Nasal Cannula 4 03/12/17 11:45 90 21 193/89 (123) 98 Nasal Cannula 4 03/12/17 11:30 90 20 175/80 (111) 96 Simple Mask 10 03/12/17 11:15 98 24 182/81 (114) 92 Simple Mask 10 03/12/17 10:59 97.6 100 24 184/81 (115) 88 Nasal Cannula 4 03/12/17 07:30 Nasal Cannula 2.00 I/O 03/12/17 03/12/17 03/12/17 03/13/17 03/13/17 03/13/17 07:00 15:00 23:00 07:00 15:00 23:00 Intake Total 31 ml 900 ml 560 ml Output Total 450 ml 1415 ml 400 ml Balance -419 ml -515 ml 160 ml Intake Oral 0 ml 0 ml 360 ml IV Total 31 ml 0 ml 200 ml Other 900 ml Output Urine Total 450 ml 1400 ml 400 ml Estimated Blood Loss 15 ml # Bowel Movements 0 0 Result Diagram: 03/13/17 0550 03/13/17 0550 Other Results Laboratory Tests Test 03/12/17 15:25 03/13/17 05:50 Prothromb Time International Ratio 1.3 RATIO 1.4 RATIO Prothrombin Time 14.7 SEC (9.8-11.6) 15.2 SEC (9.8-11.6) Imaging Last [address] Angiography 03/10/17 1518 Signed Impressions: Service Date/Time: Friday, March 10, 2017 15:44 - CONCLUSION: Cardiomegaly with reflux into the hepatic veins. There is no central pulmonary emboli. Minimal aneurysmal dilatation descending aorta. Levi Delaney MD FACR Hip and Pelvis X-Ray 03/10/17 1422 Signed Impressions: Service Date/Time: Friday, March 10, 2017 14:51 - CONCLUSION: Probable femoral neck fracture. CT scan would be of benefit. Levi Delaney MD FACR Chest X-Ray 03/10/17 1422 Signed Impressions: Service Date/Time: Friday, March 10, 2017 14:54 - CONCLUSION: No acute disease. Levi Delaney MD FACR Objective Remarks LLE: clean dry dressings and intact. minimal pain with motion. in restraints. Assessment & Plan Assessment and Plan 1) Left Femoral Neck fx S/P PCP of hip -TTWB L LE - no active quad sets or leg lifts daily dressing changes beginning POD 2 xeroform and primapore CM for rehab placement resume coumadin Follow up with Kristen or IVELISSE in 2 weeks Ruben Guillermo Jr. Mar 13, 2017 06:57
[2017-03-13] MEDS: ACETAMINOPHEN/HYDROcodone 325 MG/10 MG TAB PO PRN ×2 (08:45→22:00)
[2017-03-13] MEDS: CHOLECALCIFEROL (VIT D3) 5000 UNIT CAP PO SCH (08:52)
[2017-03-13] MEDS: DOCUSATE SODIUM 50 MG/SENNA 8.6 MG TAB PO SCH ×2 (08:52→22:00)
[2017-03-13] MEDS: WARFARIN SOD 3 MG TAB PO SCH (08:52)
[2017-03-13] MEDS: PANTOPRAZOLE SOD 40 MG DELAYED RELEASE TAB PO SCH (08:52)
[2017-03-13] MEDS: MEMANTINE HCL 10 MG TAB PO SCH ×2 (08:52→22:02)
[2017-03-13] MEDS: ATENOLOL 25 MG TAB PO SCH (08:52)
[2017-03-13] MEDS: SERTRALINE HCL 100 MG TAB PO SCH (08:52)
[2017-03-13] MEDS: SODIUM CHLORIDE 0.9% FLUSH 5 ML FLUSH IVF SCH ×2 (08:55→21:00)
[2017-03-13] MEDS: SODIUM CHLORIDE 0.9% FLUSH 10 ML FLUSH IV FLUSH SCH ×2 (08:55→22:00)
[2017-03-13] MEDS: MORPHINE SULFATE 4 MG/ML INJ IV PRN (15:17)
--- NOTE | 2017-03-13 16:19 | HHI.PR ---
Subjective Remarks Patient is a 86-year-old alf patient. Who presented to the emergency department with pain in the left hip. Patient was found to have a left femoral neck fracture. Patient is confused and demented. Patient is normally similarly somewhat ambulatory without assistance has not been moving for the last 4 days since her fall Patient was brought to the emergency department for evaluation of her left femoral neck fracture will undergo go evaluation with orthopedic surgery and will keep her nothing by mouth in case surgery is tomorrow Patient is supposed to have a mechanical valve. For which she supposed to be on chronic Coumadin but is subtherapeutic at this time will hold this so that she can have surgery as soon as possible We'll started on a heparin drip that can be discontinued once surgery decide when to take her to fix the hip 03-11 surgery decided to perform surgery tomorrow Will hold heparin drip starting at 2 AM tonight A.m. labs No new complaints Will need long-term anticoagulation due to her chronic mechanical valve 03-12 HAD SURGERY TODAY Date of Surgery: Mar 12, 2017 Preoperative Diagnosis: Impacted left femoral neck fracture Postoperative Diagnosis: Procedure: Left hip pinning Surgeon: Anastacio Belle SEEN POST OP IN HER ROOM DW PT AND FAMILY NO NEW COMPLAINTS WILL NEED REHAB AFTER DC WILL NEED TO BE RELOADED ON COUMADIN 03-13 RELOAD COUMADIN AM LABS CONFUSED BUT IS CHRONICALLY CONFUSED PER FAMILY HAS DEMENTIA RELOAD COUMADIN Objective Vitals Vital Signs Date Time Temp Pulse Resp B/P (MAP) Pulse Ox O2 Delivery O2 Flow Rate FiO2 03/13/17 12:00 97.3 77 18 140/72 (94) 92 03/13/17 09:00 Nasal Cannula 2.00 03/13/17 08:00 97.2 74 19 166/73 (104) 95 03/13/17 04:00 98.2 69 18 152/70 (97) 96 03/13/17 00:00 98.5 68 18 127/58 (81) 98 03/12/17 20:00 99.2 64 18 153/73 (99) 96 03/12/17 20:00 Nasal Cannula 2.00 I/O 03/12/17 03/12/17 03/12/17 03/13/17 03/13/17 03/13/17 07:00 15:00 23:00 07:00 15:00 23:00 Intake Total 31 ml 900 ml 560 ml 240 ml 100 ml Output Total 450 ml 1415 ml 400 ml 1400 ml Balance -419 ml -515 ml 160 ml -1160 ml 100 ml Intake Oral 0 ml 0 ml 360 ml 240 ml IV Total 31 ml 0 ml 200 ml 100 ml Other 900 ml Output Urine Total 450 ml 1400 ml 400 ml 1400 ml Estimated Blood Loss 15 ml # Bowel Movements 0 0 0 Result Diagram: 03/13/17 0550 03/13/17 0550 Other Results Laboratory Tests Test 03/11/17 01:00 03/11/17 05:06 03/11/17 10:17 03/11/17 18:09 White Blood Count 8.0 TH/MM3 Red Blood Count 3.22 MIL/MM3 Hemoglobin 10.0 GM/DL Hematocrit 30.2 % Mean Corpuscular Volume 93.8 FL Mean Corpuscular Hemoglobin 31.2 PG Mean Corpuscular Hemoglobin Concent 33.2 % Red Cell Distribution Width 15.7 % Platelet Count 191 TH/MM3 Mean Platelet Volume 8.5 FL Neutrophils (%) (Auto) 82.0 % Lymphocytes (%) (Auto) 9.7 % Monocytes (%) (Auto) 6.6 % Eosinophils (%) (Auto) 1.5 % Basophils (%) (Auto) 0.2 % Neutrophils # (Auto) 6.5 TH/MM3 Lymphocytes # (Auto) 0.8 TH/MM3 Monocytes # (Auto) 0.5 TH/MM3 Eosinophils # (Auto) 0.1 TH/MM3 Basophils # (Auto) 0.0 TH/MM3 CBC Comment DIFF FINAL Differential Comment Blood Urea Nitrogen 21 MG/DL Creatinine 0.99 MG/DL Random Glucose 121 MG/DL Total Protein 6.3 GM/DL Albumin 2.9 GM/DL Calcium Level 7.8 MG/DL Phosphorus Level 3.9 MG/DL Magnesium Level 1.9 MG/DL Alkaline Phosphatase 106 U/L Aspartate Amino Transf (AST/SGOT) 16 U/L Alanine Aminotransferase (ALT/SGPT) 15 U/L Total Bilirubin 0.3 MG/DL Sodium Level 142 MEQ/L Potassium Level 3.8 MEQ/L Chloride Level 110 MEQ/L Carbon Dioxide Level 25.7 MEQ/L Anion Gap 6 MEQ/L Estimat Glomerular Filtration Rate 53 ML/MIN Hemoglobin A1c 5.9 % Free Thyroxine 0.88 NG/DL Thyroid Stimulating Hormone 3rd Gen 0.508 uIU/ML Activated Partial Thromboplast Time GREATER THAN 277.5 SEC 48.0 SEC 57.4 SEC Test 03/12/17 15:25 03/12/17 15:26 03/12/17 21:05 03/13/17 05:50 White Blood Count 7.9 TH/MM3 7.6 TH/MM3 Red Blood Count 2.98 MIL/MM3 2.93 MIL/MM3 Hemoglobin 9.5 GM/DL 9.1 GM/DL Hematocrit 27.9 % 27.4 % Mean Corpuscular Volume 93.5 FL 93.6 FL Mean Corpuscular Hemoglobin 31.9 PG 31.2 PG Mean Corpuscular Hemoglobin Concent 34.1 % 33.3 % Red Cell Distribution Width 15.5 % 15.5 % Platelet Count 160 TH/MM3 171 TH/MM3 Mean Platelet Volume 9.0 FL 9.0 FL Neutrophils (%) (Auto) 90.2 % 73.2 % Lymphocytes (%) (Auto) 5.0 % 12.7 % Monocytes (%) (Auto) 3.1 % 7.2 % Eosinophils (%) (Auto) 1.5 % 6.6 % Basophils (%) (Auto) 0.2 % 0.3 % Neutrophils # (Auto) 7.1 TH/MM3 5.6 TH/MM3 Lymphocytes # (Auto) 0.4 TH/MM3 1.0 TH/MM3 Monocytes # (Auto) 0.2 TH/MM3 0.5 TH/MM3 Eosinophils # (Auto) 0.1 TH/MM3 0.5 TH/MM3 Basophils # (Auto) 0.0 TH/MM3 0.0 TH/MM3 CBC Comment DIFF FINAL DIFF FINAL Differential Comment Prothrombin Time 14.7 SEC 15.2 SEC Prothromb Time International Ratio 1.3 RATIO 1.4 RATIO Activated Partial Thromboplast Time 40.7 SEC 57.1 SEC 49.0 SEC 25-Hydroxy Vitamin D Total 26.6 ng/ML Blood Urea Nitrogen 8 MG/DL 8 MG/DL Creatinine 0.76 MG/DL 0.84 MG/DL Random Glucose 155 MG/DL 96 MG/DL Total Protein 6.5 GM/DL 6.4 GM/DL Albumin 2.7 GM/DL 2.7 GM/DL Calcium Level 7.8 MG/DL 8.2 MG/DL Phosphorus Level 2.2 MG/DL 1.8 MG/DL Magnesium Level 1.9 MG/DL 1.9 MG/DL Alkaline Phosphatase 108 U/L 102 U/L Aspartate Amino Transf (AST/SGOT) 28 U/L 33 U/L Alanine Aminotransferase (ALT/SGPT) 30 U/L 30 U/L Total Bilirubin 0.4 MG/DL 0.3 MG/DL Sodium Level 142 MEQ/L 142 MEQ/L Potassium Level 3.4 MEQ/L 3.1 MEQ/L Chloride Level 110 MEQ/L 108 MEQ/L Carbon Dioxide Level 24.6 MEQ/L 25.8 MEQ/L Anion Gap 7 MEQ/L 8 MEQ/L Estimat Glomerular Filtration Rate 72 ML/MIN 64 ML/MIN Imaging Last Impressions Hip X-Ray 03/12/17 0000 Signed Impressions: Service Date/Time: Sunday, March 12, 2017 10:21 - CONCLUSION: Screw fixation of the left hip subcapital fracture. Near-anatomic alignment. No acute complication demonstrated. Ruben Aguirre MD CT Angiography 03/10/17 1518 Signed Impressions: Service Date/Time: Friday, March 10, 2017 15:44 - CONCLUSION: Cardiomegaly with reflux into the hepatic veins. There is no central pulmonary emboli. Minimal aneurysmal dilatation descending aorta. Levi Delaney MD FACR Hip and Pelvis X-Ray 03/10/17 1422 Signed Impressions: Service Date/Time: Friday, March 10, 2017 14:51 - CONCLUSION: Probable femoral neck fracture. CT scan would be of benefit. Levi Delaney MD FACR Chest X-Ray 03/10/17 1422 Signed Impressions: Service Date/Time: Friday, March 10, 2017 14:54 - CONCLUSION: No acute disease. Levi Delaney MD FACR Pelvis CT 03/10/17 0000 Signed Impressions: Service Date/Time: Friday, March 10, 2017 15:51 - CONCLUSION: 1. Subtle slightly impacted subcapital left hip fracture. 2. Osteopenia and degenerative change in the lumbar spine. 3. Diverticulosis. Ruben Dalton MD Objective Remarks GENERAL: This is a well-nourished, well-developed patient, in no apparent distress.dementia not oriented and not speaking [place] SKIN: No rashes, ecchymoses or lesions. Cool and dry. HEAD: Atraumatic. Normocephalic. No temporal or scalp tenderness. EYES: Pupils equal round and reactive. Extraocular motions intact. No scleral icterus. No injection or drainage. ENT: Nose without bleeding, purulent drainage or septal hematoma. Throat without erythema, tonsillar hypertrophy or exudate. Uvula midline. Airway patent. NECK: Trachea midline. No JVD or lymphadenopathy. Supple, nontender, no meningeal signs. CARDIOVASCULAR: IRRegular rate and rhythm without murmurs, gallops, or rubs. Paced rate and rhythm S1-S2 no S3 or S4 does have a click RESPIRATORY: Clear to auscultation. Breath sounds equal bilaterally. No wheezes , rales, or rhonchi. GASTROINTESTINAL: Abdomen soft, non-tender, nondistended. No hepato-splenomegaly , or palpable masses. No guarding. MUSCULOSKELETAL: Extremities without clubbing, cyanosis, or edema. No joint tenderness, effusion, or edema noted. No calf tenderness. Negative Homans sign bilaterally. Tender left hip increased range of motion NEUROLOGICAL: Awake and alert but very confused. Cranial nerves II through XII intact. Motor and sensory grossly within normal limits. 4 out of 5 muscle strength in all muscle groups. ABNormal speech. Insight and judgment not able to be measured Patient is actively demented mood and behavior inappropriate Procedures Date of Surgery: Mar 12, 2017 Preoperative Diagnosis: Impacted left femoral neck fracture Postoperative Diagnosis: Procedure: Left hip pinning Surgeon: Anastacio Belle Medications and IVs Current Medications Sodium Chloride 1,000 ml @ 150 mls/hr ONCE ONCE IV Last administered on 15:19; Start 03/10/17 at 14:30; Stop 03/10/17 at 21:09; Status DC Morphine Sulfate (Morphine Inj) 2 mg ONCE ONCE IV PUSH Last administered on 15:35; Start 03/10/17 at 15:30; Stop 03/10/17 at 15:31; Status DC Ondansetron HCl (Zofran Inj) 4 mg ONCE ONCE IV PUSH Last administered on 16:21; Start 03/10/17 at 15:30; Stop 03/10/17 at 15:31; Status DC Iodixanol (VISIPAQUE 320 INJ (Rad CT)) 50 ml STK-MED ONCE IV ; Start 03/10/17 at 16:21; Stop 03/10/17 at 16:22; Status DC Sodium Chloride 1,000 ml @ 75 mls/hr [id number] IV Last administered on 03/13/17 11:00; Start 03/10/17 at 16:20 Sodium Chloride (NS Flush) 2 ml UNSCH PRN IV FLUSH FLUSH AFTER USING IV ACCESS ; Start 03/10/17 at 16:30 Sodium Chloride (NS Flush) 2 ml BID IV FLUSH Last administered on 03/13/17 08: 55; Start 03/10/17 at 21:00 Acetaminophen (Tylenol) 650 mg Q4H PRN PO TEMP > 100.4; Start 03/10/17 at 16:30 Ondansetron HCl (Zofran Inj) 4 mg Q6H PRN IVP NAUSEA OR VOMITING; Start at 16:30 Prochlorperazine (Compazine Supp) 25 mg Q12H PRN RECTAL NAUSEA OR VOMITING; Start 03/10/17 at 16:30 Acetaminophen (Tylenol) 650 mg Q6H PRN PO PAIN SCALE 1 TO 2; Start 03/10/17 at 16:30 Acetaminophen/ Hydrocodone Bitart ([place] 5-325 Mg) 1 tab Q4H PRN PO PAIN SCALE 3 TO 5 Last administered on 03/12/17 03:16; Start 03/10/17 at 16:30 Acetaminophen/ Hydrocodone Bitart ([place] 10-325 Mg) 1 tab Q4H PRN PO PAIN SCALE 6 TO 10 Last administered on 03/13/17 08:45; Start 03/10/17 at 16:30 Morphine Sulfate (Morphine Inj) 2 mg Q3H PRN IV Pain 3-5; if unable to take PO Last administered on 03/11/17 01:29; Start 03/10/17 at 16:30 Morphine Sulfate (Morphine Inj) 4 mg Q3H PRN IV Pain 6-10;if unable to take PO Last administered on 03/13/17 15:17; Start 03/10/17 at 16:30 Naloxone HCl (Narcan Inj) 0.4 mg UNSCH PRN IV SEE LABEL COMMENTS; Start at 16:30 Senna/Docusate Sodium (Soila-Colace) 1 tab BID PO Last administered on 03/13/17 08:52; Start 03/10/17 at 21:00 Magnesium Hydroxide (Milk Of Magnesia Liq) 30 ml Q12H PRN PO MILD - MODERATE CONSTIPATION; Start 03/10/17 at 16:30 Sennosides (Senokot) 17.2 mg Q12H PRN PO MODERATE - SEVERE CONSTIPATION; Start 03/10/17 at 16:30 Bisacodyl (Dulcolax Supp) 10 mg DAILY PRN RECTAL SEVERE CONSITIPATION; Start at 16:30 Lactulose (Lactulose Liq) 30 ml DAILY PRN PO SEVERE CONSITIPATION; Start at 16:30 Ceftriaxone Sodium 1000 mg/ Sodium Chloride 100 ml @ 200 mls/hr Q24H IV Last administered on 03/12/17 18:12; Start 03/10/17 at 18:00 Atenolol (Tenormin) 25 mg DAILY PO Last administered on 03/13/17 08:52; Start 03/11/17 at 09:00 Atorvastatin Calcium (Lipitor) 40 mg HS PO Last administered on 03/12/17 23:12 ; Start 03/10/17 at 21:00 Donepezil HCl (Aricept) 10 mg HS PO Last administered on 03/12/17 23:11; Start 03/10/17 at 21:00 Isosorbide Mononitrate (Imdur) 60 mg DAILY@0700 PO Last administered on 06:10; Start 03/11/17 at 07:00 Memantine (Namenda) 10 mg BID PO Last administered on 03/13/17 08:52; Start 03/10/17 at 21:00 Quetiapine Fumarate (SEROquel) 50 mg HS PO Last administered on 03/12/17 23:12 ; Start 03/10/17 at 21:00 Sertraline HCl (Zoloft) 100 mg DAILY PO Last administered on 03/13/17 08:52; Start 03/11/17 at 09:00 Heparin Sodium (Porcine) (Heparin Inj) 4,000 units ONCE ONCE IV Last administered on 03/10/17 18:46; Start 03/10/17 at 17:45; Stop 03/10/17 at 17:56; Status DC Heparin Sodium/ Dextrose 250 ml @ 9.72 mls/hr TITRATE PRN IV Coagulation management Last administered on 03/11/17t 21:41; Start 03/10/17 at 17:45 Pantoprazole Sodium (Protonix) 40 mg DAILY PO Last administered on 03/13/17t 08: 52; Start 03/11/17 at 09:00 Cefazolin Sodium (Ancef Inj) 2,000 mg STK-MED ONCE .ROUTE ; Start 03/11/17 at 07: 19; Stop 03/11/17 at 07:20; Status DC Gentamicin Sulfate (Gentamicin Inj) 240 mg STK-MED ONCE .ROUTE ; Start 03/11/17 at 07:19; Stop 03/11/17 at 07:20; Status DC Vancomycin HCl (Vancomycin Inj) 1,000 mg STK-MED ONCE .ROUTE ; Start 03/11/17 at 07:19; Stop 03/11/17 at 07:20; Status DC Vancomycin HCl (Vancomycin Inj) 2,000 mg STK-MED ONCE .ROUTE ; Start 03/11/17 at 07:33; Stop 03/11/17 at 07:34; Status DC Lactated Ringer's 1,000 ml @ 30 mls/hr Q24H PRN IV SEE LABEL COMMENTS; Start at 08:45; Stop 03/14/17 at 08:44 Sodium Chloride 500 ml @ 30 mls/hr [id number] PRN IV SEE LABEL COMMENTS; Start 03/11/17 at 08:45; Stop 03/14/17 at 08:44 Metoprolol Tartrate (Lopressor) 25 mg [employer] PRN PO SEE LABEL COMMENTS; Start 03/11/17 at 08:45; Stop 03/14/17 at 08:44 Povidone Iodine (Betadine 5% Antisepsis Kit) 1 applic [employer] PRN EACH NARE SEE LABEL COMMENTS; Start 03/11/17 at 08:45; Stop 03/14/17 at 08:44 Chlorhexidine Gluconate (Chlorhexidine 2% Cloth) 3 pack [employer] PRN TOPICAL SEE LABEL COMMENTS; Start 03/11/17 at 08:45; Stop 03/14/17 at 08:44 Insulin Human Regular (NovoLIN R INJ) See Protocol Table ... [employer] OPERATOR PRN SQ SEE PROTOCOL TABLE; Start 03/11/17 at 08:45; Stop 03/14/17 at 08:44 Vancomycin HCl (Vancomycin Inj) 1,000 mg STK-MED ONCE .ROUTE Last administered on 03/12/17 09:56; Start 03/12/17 at 08:50; Stop 03/12/17 at 08:51; Status DC Sodium Chloride 250 ml @ As Directed STK-MED ONCE .ROUTE ; Start 03/12/17 at 08: 50; Stop 03/12/17 at 08:51; Status DC Cefazolin Sodium (Ancef Inj) 1,000 mg STK-MED ONCE .ROUTE Last administered on 03/12/17 09:57; Start 03/12/17 at 09:12; Stop 03/12/17 at 09:13; Status DC Bupivacaine HCl/ Epinephrine Bitart (Sensorcaine-Epinephrine 0.25% Inj) 50 ml STK-MED ONCE .ROUTE Last administered on 03/12/17 10:00; Start 03/12/17 at 10:23 ; Stop 03/12/17 at 10:24; Status DC IV Flush (NS Flush) 2 ml UNSCH PRN IVF FLUSH AFTER USING IV ACCESS; Start at 10:30 IV Flush (NS Flush) 2 ml BID IVF ; Start 03/12/17 at 21:00 Miscellaneous Information (Post-op Orders (for Pharmacy)) STAT ONCE XX ; Start 03/12/17 at 10:30; Stop 03/12/17 at 15:19; Status DC Acetaminophen/ Hydrocodone Bitart ([place] 5-325 Mg) 1 tab Q4H PRN PO PAIN 3<10 ; Start 03/12/17 at 10:30; Stop 03/12/17 at 16:33; Status DC Cefazolin Sodium 1000 mg/Sodium Chloride 100 ml @ 200 mls/hr Q6H IV Last administered on 03/13/17 04:52; Start 03/12/17 at 16:00; Stop 03/13/17 at 04:29; Status DC Morphine Sulfate (Morphine Inj) 3 mg Q3H PRN IV PUSH break thru pain Last administered on 03/13/17 02:59; Start 03/12/17 at 10:30 Ergocalciferol (Drisdol) 50,000 units ONCE ONCE PO ; Start 03/12/17 at 10:30; Stop 03/12/17 at 15:13; Status DC Cholecalciferol (Vitamin D3) 5,000 units DAILY PO Last administered on 08:52; Start 03/13/17 at 09:00 Warfarin Sodium (Coumadin) 3 mg DAILY PO Last administered on 03/13/17 08:52; Start 03/12/17 at 16:00 Albuterol Sulfate (*ALBUTEROL NEB PERIprocedure ONLY) 2.5 mg STK-MED ONCE NEB Last administered on 03/12/17 11:51; Start 03/12/17 at 11:50; Stop 03/12/17 at 11: 51; Status DC Fentanyl Citrate (fentaNYL INJ) 100 mcg STK-MED ONCE .ROUTE ; Start 03/12/17 at 11:53; Stop 03/12/17 at 11:54; Status DC Labetalol HCl (*TRANDATE INJ PERIprocedural Use ONLY) 100 mg STK-MED ONCE .ROUTE Last administered on 03/12/17 11:54; Start 03/12/17 at 11:53; Stop at 11:54; Status DC Miscellaneous Information ALL NURSING DEPARTME... UNSCH PRN .XX SEE LABEL COMMENTS; Start 03/12/17 at 10:58; Stop 03/13/17 at 10:57; Status DC A/P Problem List: (1) Mechanical heart valve present ICD Code: Z95.2 - Presence of prosthetic heart valve (2) Hx of CABG ICD Code: Z95.1 - Presence of aortocoronary bypass graft Status: Acute (3) Aortic valve replaced ICD Code: Z95.2 - Presence of prosthetic heart valve Status: Acute (4) Dementia with behavioral disturbance ICD Code: F03.91 - Unspecified dementia with behavioral disturbance Status: Chronic (5) Fracture of femoral neck, left ICD Code: S72.002A - Fracture of unspecified part of neck of left femur, initial encounter for closed fracture (6) Pacemaker ICD Code: Z95.0 - Presence of cardiac pacemaker (7) HTN (hypertension) ICD Code: I10 - Essential (primary) hypertension Status: Chronic (8) CAD (coronary artery disease) ICD Code: I25.10 - Atherosclerotic heart disease of [place] coronary artery without angina pectoris Status: Chronic (9) Atrial fibrillation ICD Code: I48.91 - Unspecified atrial fibrillation Assessment and Plan Patient has left femoral neck fracture Will consult orthopedic surgery. Patient will be moderate risk for surgery due to advancing dementia or coronary disease and history of aortic valve mechanical valve Will need to be started on heparin if no surgery is planned within the next day or so--will hold heparin drip starting at 2 AM So the patient to have surgery tomorrow Hypertension Continue on her home medications Dementia continue on all her home medications Anxiety and depression continue on home medications Coronary artery disease history of CABG continue on home medications Heparin for the mechanical aortic valve or nothing surgery planned sooner hold at 2 AM so patient can have surgery tomorrow Date of Surgery: Mar 12, 2017 Preoperative Diagnosis: Impacted left femoral neck fracture Postoperative Diagnosis: Procedure: Left hip pinning Surgeon: Anastacio Belle SCDs and JAD madrid for DVT PPI for GI prophylaxis Will need to restart Coumadin in the future due to her chronic mechanical valve DAILY INR RELOAD COUMADIN- HEPARIN BRIDGE AND COUMADIN HYPOKALEMIA 50MEQ KCL Levi Francois DO Mar 13, 2017 16:19
[2017-03-13] MEDS ORDERED: POTASSIUM CHLORIDE 25 MEQ EFFERVESCENT TAB PO ONE (16:30)
[2017-03-13] MEDS: cefTRIAXone INJ 1,000 MG in SODIUM CHLORIDE 0.9% INJ 100 ML IV SCH (17:12)
[2017-03-13] MEDS: DONEPEZIL HCL 5 MG TAB PO SCH (21:59)
[2017-03-13] MEDS: ATORVASTATIN 40 MG TAB PO SCH (21:59)
[2017-03-13] MEDS: QUEtiapine FUMARATE 25 MG TAB PO SCH (22:00)
[2017-03-14] VITALS (9 sets, daily range): BP systolic 151–193; BP diastolic 69–93; PULSE 59–79; RESP 16–20; TEMP 97.1–99; O2SAT 94–99
[2017-03-14] MEDS: ISOSORBIDE MONONITRATE 60 MG TAB PO SCH (05:57)
[2017-03-14] MEDS: MORPHINE SULFATE 4 MG/ML INJ IV PRN ×3 (05:57→16:46)
--- NOTE | 2017-03-14 07:17 | PD.ORT.PN ---
Subjective Subjective Remarks POD 2 s/p Perc pinning left hip demented. in restraints Objective Vitals Vital Signs Date Time Temp Pulse Resp B/P (MAP) Pulse Ox O2 Delivery O2 Flow Rate FiO2 03/14/17 04:00 98.3 76 20 168/75 (106) 94 03/14/17 00:00 99.0 79 18 163/78 (106) 95 03/13/17 21:00 95 Nasal Cannula 3.00 03/13/17 20:02 99.1 71 18 183/81 (115) 96 03/13/17 20:00 67 03/13/17 17:36 92 21 03/13/17 16:00 97.4 70 18 136/75 (95) 95 03/13/17 12:00 97.3 77 18 140/72 (94) 92 03/13/17 09:00 Nasal Cannula 2.00 03/13/17 08:00 97.2 74 19 166/73 (104) 95 I/O 03/13/17 03/13/17 03/13/17 03/14/17 03/14/17 03/14/17 06:59 14:59 22:59 06:59 14:59 22:59 Intake Total 240 ml 580 ml 2705 ml Output Total 1400 ml Balance -1160 ml 580 ml 2705 ml Intake Oral 240 ml 480 ml 280 ml IV Total 100 ml 2425 ml Output Urine Total 1400 ml # Voids 2 3 # Bowel Movements 0 0 Result Diagram: 03/13/17 0550 03/13/17 0550 Imaging Last [address] Angiography 03/10/17 1518 Signed Impressions: Service Date/Time: Friday, March 10, 2017 15:44 - CONCLUSION: Cardiomegaly with reflux into the hepatic veins. There is no central pulmonary emboli. Minimal aneurysmal dilatation descending aorta. Levi Delaney MD FACR Hip and Pelvis X-Ray 03/10/17 1422 Signed Impressions: Service Date/Time: Friday, March 10, 2017 14:51 - CONCLUSION: Probable femoral neck fracture. CT scan would be of benefit. Levi Delaney MD FACR Chest X-Ray 03/10/17 1422 Signed Impressions: Service Date/Time: Friday, March 10, 2017 14:54 - CONCLUSION: No acute disease. Levi Delaney MD FACR Objective Remarks LLE: clean dry dressings and intact. minimal pain with motion. in restraints. Assessment & Plan Assessment and Plan 1) Left Femoral Neck fx S/P PCP of hip - POD 1 -TTWB L LE - no active quad sets or leg lifts daily dressing changes beginning POD 2 xeroform and prim[place] CM for rehab placement resume coumadin Follow up with Kristen or IVELISSE in 2 weeks Larry Knight Mar 14, 2017 07:17
[2017-03-14 08:30] LABS: AUTOMATED NEUTROPHIL # 5.4 TH/MM3 (1.8-7.7); BASOPHIL % 0.3 % (0.0-2.0); EOSINOPHIL # 0.1 TH/MM3 (0-0.4); EOSINOPHIL % 1.4 % (0.0-4.0); HEMATOCRIT 27.6 % (35.0-46.0); LYMPH % 13.9 % (9.0-44.0); MEAN CELL VOLUME 92.8 FL (80.0-100.0); MEAN CORPUSCULAR HEMOGLOBIN 31.1 PG (27.0-34.0); MEAN CORPUSCULAR HGB CONC 33.5 % (32.0-36.0); MONO % 8.8 % (0.0-8.0); NEUT % 75.6 % (16.0-70.0); PLATELET COUNT 206 TH/MM3 (150-450); RED BLOOD COUNT 2.98 MIL/MM3 (4.00-5.30); RED CELL DISTRIBUTION WIDTH 15.7 % (11.6-17.2); WHITE BLOOD COUNT 7.2 TH/MM3 (4.0-11.0)
[2017-03-14 08:38] LABS: HEMO FLAGS AUTO DIFF
[2017-03-14 08:45] LABS: APTT (PATIENT) 59.5 SEC (24.3-30.1); INTERNATIONAL NORMALIZED RATIO 1.7 RATIO
[2017-03-14] MEDS: DOCUSATE SODIUM 50 MG/SENNA 8.6 MG TAB PO SCH ×2 (09:00→21:05)
[2017-03-14] MEDS: SODIUM CHLORIDE 0.9% FLUSH 10 ML FLUSH IV FLUSH SCH ×2 (09:00→21:00)
[2017-03-14] MEDS: SODIUM CHLORIDE 0.9% FLUSH 5 ML FLUSH IVF SCH ×2 (09:00→21:00)
[2017-03-14 09:16] LABS: ALKALINE PHOSPHATASE 129 U/L (45-117); ALT (GPT) 33 U/L (10-53); ANION GAP 13 MEQ/L (5-15); AST (GOT) 42 U/L (15-37); BLOOD UREA NITROGEN 12 MG/DL (7-18); CHLORIDE 103 MEQ/L (98-107); GLOMERULAR FILTRATION RATE 62 ML/MIN (>89); MAGNESIUM 1.7 MG/DL (1.5-2.5); SODIUM (NA) 141 MEQ/L (136-145); TOTAL BILIRUBIN ADULT 0.6 MG/DL (0.2-1.0)
[2017-03-14 09:30] LABS: POTASSIUM 2.6 MEQ/L (3.5-5.1)
[2017-03-14] MEDS: SERTRALINE HCL 100 MG TAB PO SCH (09:52)
[2017-03-14] MEDS: CHOLECALCIFEROL (VIT D3) 5000 UNIT CAP PO SCH (09:52)
[2017-03-14] MEDS: MEMANTINE HCL 10 MG TAB PO SCH ×2 (09:52→21:06)
[2017-03-14] MEDS: PANTOPRAZOLE SOD 40 MG DELAYED RELEASE TAB PO SCH (09:53)
[2017-03-14] MEDS: WARFARIN SOD 3 MG TAB PO SCH (09:53)
[2017-03-14] MEDS: ATENOLOL 25 MG TAB PO SCH (09:53)
[2017-03-14 10:29] LABS: CORRECTED NUCLEATED RBC 1 /100 WBC (0-0); METAMYELOCYTES 4 % (0-1); MYELOCYTES 1 % (0-0); NEUTROPHIL # MANUAL DIFF 5.8 TH/MM3 (1.8-7.7); POLYS (SEG NEUTROPHILS) 75 % (16-70); WBC DIFF SAMPLE 100
[2017-03-14 10:30] LABS: ACANTHOCYTES OCC (NORMAL); OVALOCYTES 1+ (NORMAL); TEARDROP RBCS 1+ (NORMAL)
[2017-03-14 10:31] LABS: PLATELET ESTIMATE SMEAR NORMAL (NORMAL); PLATELET MORPHOLOGY NORMAL (NORMAL); SCAN/DIFF FINAL DIFF MANUAL
[2017-03-14] MEDS ORDERED: POTASSIUM CHLORIDE 10 MEQ CONTROLLED RELEASE TAB PO ONE ×2 (11:15)
[2017-03-14] MEDS: MAGNESIUM SULFATE 1 GM PREMIX 100 ML IV SCH ×2 (12:11→12:59)
[2017-03-14] MEDS: POTASSIUM PHOSPHATE MONOBASIC 500 MG TAB PO SCH ×2 (12:27→21:05)
--- NOTE | 2017-03-14 12:43 | HHI.PR ---
Subjective Remarks Patient is a 86-year-old halfway patient. Who presented to the emergency department with pain in the left hip. Patient was found to have a left femoral neck fracture. Patient is confused and demented. Patient is normally similarly somewhat ambulatory without assistance has not been moving for the last 4 days since her fall Patient was brought to the emergency department for evaluation of her left femoral neck fracture will undergo go evaluation with orthopedic surgery and will keep her nothing by mouth in case surgery is tomorrow Patient is supposed to have a mechanical valve. For which she supposed to be on chronic Coumadin but is subtherapeutic at this time will hold this so that she can have surgery as soon as possible We'll started on a heparin drip that can be discontinued once surgery decide when to take her to fix the hip 9- surgery decided to perform surgery tomorrow Will hold heparin drip starting at 2 AM tonight A.m. labs No new complaints Will need long-term anticoagulation due to her chronic mechanical valve 03-12 HAD SURGERY TODAY Date of Surgery: Mar 12, 2017 Preoperative Diagnosis: Impacted left femoral neck fracture Postoperative Diagnosis: Procedure: Left hip pinning Surgeon: Anastacio Belle SEEN POST OP IN HER ROOM [facility] PT AND FAMILY NO NEW COMPLAINTS WILL NEED REHAB AFTER DC WILL NEED TO BE RELOADED ON COUMADIN 03-13 RELOAD COUMADIN AM LABS CONFUSED BUT IS CHRONICALLY CONFUSED PER FAMILY HAS DEMENTIA RELOAD COUMADIN 03-14 continue to re-load to Coumadin Replace potassium and magnesium and phosphorus Discussed with patient and RN Monitor labs await SNF acceptance and placement Objective Vitals Vital Signs Date Time Temp Pulse Resp B/P (MAP) Pulse Ox O2 Delivery O2 Flow Rate FiO2 03/14/17 09:54 99 Nasal Cannula 2.00 03/14/17 08:00 2.00 03/14/17 08:00 98.6 65 18 155/69 (97) 97 03/14/17 08:00 59 03/14/17 04:00 98.3 76 20 168/75 (106) 94 03/14/17 00:00 99.0 79 18 163/78 (106) 95 03/13/17 21:00 95 Nasal Cannula 3.00 03/13/17 20:02 99.1 71 18 183/81 (115) 96 03/13/17 20:00 67 03/13/17 17:36 92 21 03/13/17 16:00 97.4 70 18 136/75 (95) 95 I/O 03/13/17 03/13/17 03/13/17 03/14/17 03/14/17 03/14/17 06:59 14:59 22:59 06:59 14:59 22:59 Intake Total 240 ml 580 ml 2705 ml 240 ml 18 ml Output Total 1400 ml Balance -1160 ml 580 ml 2705 ml 240 ml 18 ml Intake Oral 240 ml 480 ml 280 ml 240 ml IV Total 100 ml 2425 ml 18 ml Output Urine Total 1400 ml # Voids 2 3 4 # Bowel Movements 0 0 0 Result Diagram: 03/14/17 0707 03/14/17 0730 Other Results Laboratory Tests Test 03/11/17 18:09 03/12/17 15:25 03/12/17 15:26 03/12/17 21:05 Activated Partial Thromboplast Time 57.4 SEC 40.7 SEC 57.1 SEC White Blood Count 7.9 TH/MM3 Red Blood Count 2.98 MIL/MM3 Hemoglobin 9.5 GM/DL Hematocrit 27.9 % Mean Corpuscular Volume 93.5 FL Mean Corpuscular Hemoglobin 31.9 PG Mean Corpuscular Hemoglobin Concent 34.1 % Red Cell Distribution Width 15.5 % Platelet Count 160 TH/MM3 Mean Platelet Volume 9.0 FL Neutrophils (%) (Auto) 90.2 % Lymphocytes (%) (Auto) 5.0 % Monocytes (%) (Auto) 3.1 % Eosinophils (%) (Auto) 1.5 % Basophils (%) (Auto) 0.2 % Neutrophils # (Auto) 7.1 TH/MM3 Lymphocytes # (Auto) 0.4 TH/MM3 Monocytes # (Auto) 0.2 TH/MM3 Eosinophils # (Auto) 0.1 TH/MM3 Basophils # (Auto) 0.0 TH/MM3 CBC Comment DIFF FINAL Differential Comment Prothrombin Time 14.7 SEC Prothromb Time International Ratio 1.3 RATIO 25-Hydroxy Vitamin D Total 26.6 ng/ML Blood Urea Nitrogen 8 MG/DL Creatinine 0.76 MG/DL Random Glucose 155 MG/DL Total Protein 6.5 GM/DL Albumin 2.7 GM/DL Calcium Level 7.8 MG/DL Phosphorus Level 2.2 MG/DL Magnesium Level 1.9 MG/DL Alkaline Phosphatase 108 U/L Aspartate Amino Transf (AST/SGOT) 28 U/L Alanine Aminotransferase (ALT/SGPT) 30 U/L Total Bilirubin 0.4 MG/DL Sodium Level 142 MEQ/L Potassium Level 3.4 MEQ/L Chloride Level 110 MEQ/L Carbon Dioxide Level 24.6 MEQ/L Anion Gap 7 MEQ/L Estimat Glomerular Filtration Rate 72 ML/MIN Test 03/13/17 05:50 03/14/17 07:07 03/14/17 07:30 White Blood Count 7.6 TH/MM3 7.2 TH/MM3 Red Blood Count 2.93 MIL/MM3 2.98 MIL/MM3 Hemoglobin 9.1 GM/DL 9.3 GM/DL Hematocrit 27.4 % 27.6 % Mean Corpuscular Volume 93.6 FL 92.8 FL Mean Corpuscular Hemoglobin 31.2 PG 31.1 PG Mean Corpuscular Hemoglobin Concent 33.3 % 33.5 % Red Cell Distribution Width 15.5 % 15.7 % Platelet Count 171 TH/MM3 206 TH/MM3 Mean Platelet Volume 9.0 FL 9.3 FL Neutrophils (%) (Auto) 73.2 % 75.6 % Lymphocytes (%) (Auto) 12.7 % 13.9 % Monocytes (%) (Auto) 7.2 % 8.8 % Eosinophils (%) (Auto) 6.6 % 1.4 % Basophils (%) (Auto) 0.3 % 0.3 % Neutrophils # (Auto) 5.6 TH/MM3 5.4 TH/MM3 Lymphocytes # (Auto) 1.0 TH/MM3 1.0 TH/MM3 Monocytes # (Auto) 0.5 TH/MM3 0.6 TH/MM3 Eosinophils # (Auto) 0.5 TH/MM3 0.1 TH/MM3 Basophils # (Auto) 0.0 TH/MM3 0.0 TH/MM3 CBC Comment DIFF FINAL AUTO DIFF Differential Comment FINAL DIFF MANUAL Prothrombin Time 15.2 SEC 19.0 SEC Prothromb Time International Ratio 1.4 RATIO 1.7 RATIO Activated Partial Thromboplast Time 49.0 SEC 59.5 SEC Blood Urea Nitrogen 8 MG/DL 12 MG/DL Creatinine 0.84 MG/DL 0.87 MG/DL Random Glucose 96 MG/DL 101 MG/DL Total Protein 6.4 GM/DL 6.7 GM/DL Albumin 2.7 GM/DL 3.0 GM/DL Calcium Level 8.2 MG/DL 8.2 MG/DL Phosphorus Level 1.8 MG/DL 1.8 MG/DL Magnesium Level 1.9 MG/DL 1.7 MG/DL Alkaline Phosphatase 102 U/L 129 U/L Aspartate Amino Transf (AST/SGOT) 33 U/L 42 U/L Alanine Aminotransferase (ALT/SGPT) 30 U/L 33 U/L Total Bilirubin 0.3 MG/DL 0.6 MG/DL Sodium Level 142 MEQ/L 141 MEQ/L Potassium Level 3.1 MEQ/L 2.6 MEQ/L Chloride Level 108 MEQ/L 103 MEQ/L Carbon Dioxide Level 25.8 MEQ/L 25.0 MEQ/L Anion Gap 8 MEQ/L 13 MEQ/L Estimat Glomerular Filtration Rate 64 ML/MIN 62 ML/MIN Differential Total Cells Counted 100 Neutrophils % (Manual) 75 % Lymphocytes % 16 % Monocytes % 4 % Neutrophils # (Manual) 5.8 TH/MM3 Metamyelocytes 4 % Myelocytes 1 % Nucleated Red Blood Cells 1 /100 WBC Platelet Estimate NORMAL Platelet Morphology Comment NORMAL Tear Drop Cells 1+ Ovalocytes 1+ Acanthocytes OCC Imaging Last Impressions Hip X-Ray 03/12/17 0000 Signed Impressions: Service Date/Time: Sunday, March 12, 2017 10:21 - CONCLUSION: Screw fixation of the left hip subcapital fracture. Near-anatomic alignment. No acute complication demonstrated. Ruben Aguirre MD CT Angiography 03/10/17 1518 Signed Impressions: Service Date/Time: Friday, March 10, 2017 15:44 - CONCLUSION: Cardiomegaly with reflux into the hepatic veins. There is no central pulmonary emboli. Minimal aneurysmal dilatation descending aorta. Levi Delaney MD FACR Hip and Pelvis X-Ray 03/10/17 142 Signed Impressions: Service Date/Time: Friday, March 10, 2017 14:51 - CONCLUSION: Probable femoral neck fracture. CT scan would be of benefit. Levi Delaney MD FACR Chest X-Ray 03/10/17 142 Signed Impressions: Service Date/Time: Friday, March 10, 2017 14:54 - CONCLUSION: No acute disease. Levi Delaney MD FACR Pelvis CT 03/10/17 0000 Signed Impressions: Service Date/Time: Friday, March 10, 2017 15:51 - CONCLUSION: 1. Subtle slightly impacted subcapital left hip fracture. 2. Osteopenia and degenerative change in the lumbar spine. 3. Diverticulosis. Ruben Dalton MD Objective Remarks GENERAL: This is a well-nourished, well-developed patient, in no apparent distress.dementia not oriented and not speaking [place] SKIN: No rashes, ecchymoses or lesions. Cool and dry. HEAD: Atraumatic. Normocephalic. No temporal or scalp tenderness. EYES: Pupils equal round and reactive. Extraocular motions intact. No scleral icterus. No injection or drainage. ENT: Nose without bleeding, purulent drainage or septal hematoma. Throat without erythema, tonsillar hypertrophy or exudate. Uvula midline. Airway patent. NECK: Trachea midline. No JVD or lymphadenopathy. Supple, nontender, no meningeal signs. CARDIOVASCULAR: IRRegular rate and rhythm without murmurs, gallops, or rubs. Paced rate and rhythm S1-S2 no S3 or S4 does have a click RESPIRATORY: Clear to auscultation. Breath sounds equal bilaterally. No wheezes , rales, or rhonchi. GASTROINTESTINAL: Abdomen soft, non-tender, nondistended. No hepato-splenomegaly , or palpable masses. No guarding. MUSCULOSKELETAL: Extremities without clubbing, cyanosis, or edema. No joint tenderness, effusion, or edema noted. No calf tenderness. Negative Homans sign bilaterally. Tender left hip increased range of motion NEUROLOGICAL: Awake and alert but very confused. Cranial nerves II through XII intact. Motor and sensory grossly within normal limits. 4 out of 5 muscle strength in all muscle groups. ABNormal speech. Insight and judgment not able to be measured Patient is actively demented mood and behavior inappropriate Procedures Date of Surgery: Mar 12, 2017 Preoperative Diagnosis: Impacted left femoral neck fracture Postoperative Diagnosis: Procedure: Left hip pinning Surgeon: Anastacio Belle Medications and IVs Current Medications Sodium Chloride 1,000 ml @ 150 mls/hr ONCE ONCE IV Last administered on 15:19; Start 03/10/17 at 14:30; Stop 03/10/17 at 21:09; Status DC Morphine Sulfate (Morphine Inj) 2 mg ONCE ONCE IV PUSH Last administered on 15:35; Start 03/10/17 at 15:30; Stop 03/10/17 at 15:31; Status DC Ondansetron HCl (Zofran Inj) 4 mg ONCE ONCE IV PUSH Last administered on 16:21; Start 03/10/17 at 15:30; Stop 03/10/17 at 15:31; Status DC Iodixanol (VISIPAQUE 320 INJ (Rad CT)) 50 ml STK-MED ONCE IV ; Start 03/10/17 at 16:21; Stop 03/10/17 at 16:22; Status DC Sodium Chloride 1,000 ml @ 75 mls/hr [id number] IV Last administered on 03/13/17 22:02; Start 03/10/17 at 16:20 Sodium Chloride (NS Flush) 2 ml UNSCH PRN IV FLUSH FLUSH AFTER USING IV ACCESS ; Start 03/10/17 at 16:30 Sodium Chloride (NS Flush) 2 ml BID IV FLUSH Last administered on 03/13/17 22: 00; Start 03/10/17 at 21:00 Acetaminophen (Tylenol) 650 mg Q4H PRN PO TEMP > 100.4; Start 03/10/17 at 16:30 Ondansetron HCl (Zofran Inj) 4 mg Q6H PRN IVP NAUSEA OR VOMITING; Start at 16:30 Prochlorperazine (Compazine Supp) 25 mg Q12H PRN RECTAL NAUSEA OR VOMITING; Start 03/10/17 at 16:30 Acetaminophen (Tylenol) 650 mg Q6H PRN PO PAIN SCALE 1 TO 2; Start 03/10/17 at 16:30 Acetaminophen/ Hydrocodone Bitart ([place] 5-325 Mg) 1 tab Q4H PRN PO PAIN SCALE 3 TO 5 Last administered on 03/12/17 03:16; Start 03/10/17 at 16:30 Acetaminophen/ Hydrocodone Bitart ([place] 10-325 Mg) 1 tab Q4H PRN PO PAIN SCALE 6 TO 10 Last administered on 03/13/17 22:00; Start 03/10/17 at 16:30 Morphine Sulfate (Morphine Inj) 2 mg Q3H PRN IV Pain 3-5; if unable to take PO Last administered on 03/14/17 09:54; Start 03/10/17 at 16:30 Morphine Sulfate (Morphine Inj) 4 mg Q3H PRN IV Pain 6-10;if unable to take PO Last administered on 03/14/17 05:57; Start 03/10/17 at 16:30 Naloxone HCl (Narcan Inj) 0.4 mg UNSCH PRN IV SEE LABEL COMMENTS; Start at 16:30 Senna/Docusate Sodium (Soila-Colace) 1 tab BID PO Last administered on 03/14/17 09:00; Start 03/10/17 at 21:00 Magnesium Hydroxide (Milk Of Magnesia Liq) 30 ml Q12H PRN PO MILD - MODERATE CONSTIPATION; Start 03/10/17 at 16:30 Sennosides (Senokot) 17.2 mg Q12H PRN PO MODERATE - SEVERE CONSTIPATION; Start 03/10/17 at 16:30 Bisacodyl (Dulcolax Supp) 10 mg DAILY PRN RECTAL SEVERE CONSITIPATION; Start at 16:30 Lactulose (Lactulose Liq) 30 ml DAILY PRN PO SEVERE CONSITIPATION; Start at 16:30 Ceftriaxone Sodium 1000 mg/ Sodium Chloride 100 ml @ 200 mls/hr Q24H IV Last administered on 03/13/17 17:12; Start 03/10/17 at 18:00 Atenolol (Tenormin) 25 mg DAILY PO Last administered on 03/14/17 09:53; Start 03/11/17 at 09:00 Atorvastatin Calcium (Lipitor) 40 mg HS PO Last administered on 03/13/17 21:59 ; Start 03/10/17 at 21:00 Donepezil HCl (Aricept) 10 mg HS PO Last administered on 03/13/17 21:59; Start 03/10/17 at 21:00 Isosorbide Mononitrate (Imdur) 60 mg DAILY@0700 PO Last administered on 05:57; Start 03/11/17 at 07:00 Memantine (Namenda) 10 mg BID PO Last administered on 03/14/17 09:52; Start 03/10/17 at 21:00 Quetiapine Fumarate (SEROquel) 50 mg HS PO Last administered on 03/13/17 22:00 ; Start 03/10/17 at 21:00 Sertraline HCl (Zoloft) 100 mg DAILY PO Last administered on 03/14/17 09:52; Start 03/11/17 at 09:00 Heparin Sodium (Porcine) (Heparin Inj) 4,000 units ONCE ONCE IV Last administered on 03/10/17 18:46; Start 03/10/17 at 17:45; Stop 03/10/17 at 17:56; Status DC Heparin Sodium/ Dextrose 250 ml @ 9.72 mls/hr TITRATE PRN IV Coagulation management Last administered on 03/11/17 21:41; Start 03/10/17 at 17:45; Stop 03/14/17 at 10:12; Status DC Pantoprazole Sodium (Protonix) 40 mg DAILY PO Last administered on 03/14/17 09: 53; Start 03/11/17 at 09:00 Cefazolin Sodium (Ancef Inj) 2,000 mg STK-MED ONCE .ROUTE ; Start 03/11/17 at 07: 19; Stop 03/11/17 at 07:20; Status DC Gentamicin Sulfate (Gentamicin Inj) 240 mg STK-MED ONCE .ROUTE ; Start 03/11/17 at 07:19; Stop 03/11/17 at 07:20; Status DC Vancomycin HCl (Vancomycin Inj) 1,000 mg STK-MED ONCE .ROUTE ; Start 03/11/17 at 07:19; Stop 03/11/17 at 07:20; Status DC Vancomycin HCl (Vancomycin Inj) 2,000 mg STK-MED ONCE .ROUTE ; Start 03/11/17 at 07:33; Stop 03/11/17 at 07:34; Status DC Lactated Ringer's 1,000 ml @ 30 mls/hr Q24H PRN IV SEE LABEL COMMENTS; Start at 08:45; Stop 03/14/17 at 08:44; Status DC Sodium Chloride 500 ml @ 30 mls/hr [id number] PRN IV SEE LABEL COMMENTS; Start 03/11/17 at 08:45; Stop 03/14/17 at 08:44; Status DC Metoprolol Tartrate (Lopressor) 25 mg LUMBER ESTIMATOR PRN PO SEE LABEL COMMENTS; Start 03/11/17 at 08:45; Stop 03/14/17 at 08:44; Status DC Povidone Iodine (Betadine 5% Antisepsis Kit) 1 applic LUMBER ESTIMATOR PRN EACH NARE SEE LABEL COMMENTS; Start 03/11/17 at 08:45; Stop 03/14/17 at 08:44; Status DC Chlorhexidine Gluconate (Chlorhexidine 2% Cloth) 3 pack LUMBER ESTIMATOR PRN TOPICAL SEE LABEL COMMENTS; Start 03/11/17 at 08:45; Stop 03/14/17 at 08:44; Status DC Insulin Human Regular (NovoLIN R INJ) See Protocol Table ... LUMBER ESTIMATOR PRN SQ SEE PROTOCOL TABLE; Start 03/11/17 at 08:45; Stop 03/14/17 at 08:44; Status DC Vancomycin HCl (Vancomycin Inj) 1,000 mg STK-MED ONCE .ROUTE Last administered on 03/12/17 09:56; Start 03/12/17 at 08:50; Stop 03/12/17 at 08:51; Status DC Sodium Chloride 250 ml @ As Directed STK-MED ONCE .ROUTE ; Start 03/12/17 at 08: 50; Stop 03/12/17 at 08:51; Status DC Cefazolin Sodium (Ancef Inj) 1,000 mg STK-MED ONCE .ROUTE Last administered on 03/12/17 09:57; Start 03/12/17 at 09:12; Stop 03/12/17 at 09:13; Status DC Bupivacaine HCl/ Epinephrine Bitart (Sensorcaine-Epinephrine 0.25% Inj) 50 ml STK-MED ONCE .ROUTE Last administered on 03/12/17 10:00; Start 03/12/17 at 10:23 ; Stop 03/12/17 at 10:24; Status DC IV Flush (NS Flush) 2 ml UNSCH PRN IVF FLUSH AFTER USING IV ACCESS; Start at 10:30 IV Flush (NS Flush) 2 ml BID IVF Last administered on 03/13/17 21:00; Start 03/12/17 at 21:00 Miscellaneous Information (Post-op Orders (for Pharmacy)) STAT ONCE XX ; Start 03/12/17 at 10:30; Stop 03/12/17 at 15:19; Status DC Acetaminophen/ Hydrocodone Bitart ([place] 5-325 Mg) 1 tab Q4H PRN PO PAIN 3<10 ; Start 03/12/17 at 10:30; Stop 03/12/17 at 16:33; Status DC Cefazolin Sodium 1000 mg/Sodium Chloride 100 ml @ 200 mls/hr Q6H IV Last administered on 03/13/17 04:52; Start 03/12/17 at 16:00; Stop 03/13/17 at 04:29; Status DC Morphine Sulfate (Morphine Inj) 3 mg Q3H PRN IV PUSH break thru pain Last administered on 03/13/17 02:59; Start 03/12/17 at 10:30 Ergocalciferol (Drisdol) 50,000 units ONCE ONCE PO ; Start 03/12/17 at 10:30; Stop 03/12/17 at 15:13; Status DC Cholecalciferol (Vitamin D3) 5,000 units DAILY PO Last administered on 09:52; Start 03/13/17 at 09:00 Warfarin Sodium (Coumadin) 3 mg DAILY PO Last administered on 03/14/17 09:53; Start 03/12/17 at 16:00 Albuterol Sulfate (*ALBUTEROL NEB PERIprocedure ONLY) 2.5 mg STK-MED ONCE NEB Last administered on 03/12/17 11:51; Start 03/12/17 at 11:50; Stop 03/12/17 at 11: 51; Status DC Fentanyl Citrate (fentaNYL INJ) 100 mcg STK-MED ONCE .ROUTE ; Start 03/12/17 at 11:53; Stop 03/12/17 at 11:54; Status DC Labetalol HCl (*TRANDATE INJ PERIprocedural Use ONLY) 100 mg STK-MED ONCE .ROUTE Last administered on 03/12/17 11:54; Start 03/12/17 at 11:53; Stop at 11:54; Status DC Miscellaneous Information ALL NURSING DEPARTME... UNSCH PRN .XX SEE LABEL COMMENTS; Start 03/12/17 at 10:58; Stop 03/13/17 at 10:57; Status DC Potassium Bicarb/ Potassium Chloride (K-Lyte Cl Eff) 50 meq ONCE ONCE PO Last administered on 03/13/17 17:12; Start 03/13/17 at 16:30; Stop 03/13/17 at 16: 31; Status DC Magnesium Sulfate/ Dextrose 100 ml @ 100 mls/hr Q1H IV Last administered on 12:11; Start 03/14/17 at 12:00; Stop 03/14/17 at 13:59 Potassium Chloride (KCl) 40 meq ONCE ONCE PO Last administered on 03/14/17 12: 10; Start 03/14/17 at 11:15; Stop 03/14/17 at 11:55; Status DC Potassium Chloride (KCl) 40 meq ONCE ONCE PO Last administered on 03/14/17 12: 10; Start 03/14/17 at 11:15; Stop 03/14/17 at 11:55; Status DC Potassium Phosphate (K-Phos) 1,000 mg Q12HR PO Last administered on 03/14/17 12 :27; Start 03/14/17 at 12:00 Urinary Catheter: No A/P Problem List: (1) Mechanical heart valve present ICD Code: Z95.2 - Presence of prosthetic heart valve (2) Hx of CABG ICD Code: Z95.1 - Presence of aortocoronary bypass graft Status: Acute (3) Aortic valve replaced ICD Code: Z95.2 - Presence of prosthetic heart valve Status: Acute (4) Dementia with behavioral disturbance ICD Code: F03.91 - Unspecified dementia with behavioral disturbance Status: Chronic (5) Fracture of femoral neck, left ICD Code: S72.002A - Fracture of unspecified part of neck of left femur, initial encounter for closed fracture (6) Pacemaker ICD Code: Z95.0 - Presence of cardiac pacemaker (7) HTN (hypertension) ICD Code: I10 - Essential (primary) hypertension Status: Chronic (8) CAD (coronary artery disease) ICD Code: I25.10 - Atherosclerotic heart disease of [place] coronary artery without angina pectoris Status: Chronic (9) Atrial fibrillation ICD Code: I48.91 - Unspecified atrial fibrillation Assessment and Plan Patient has left femoral neck fracture Will consult orthopedic surgery. Patient will be moderate risk for surgery due to advancing dementia or coronary disease and history of aortic valve mechanical valve Will need to be started on heparin if no surgery is planned within the next day or so--will hold heparin drip starting at 2 AM So the patient to have surgery tomorrow Hypertension Continue on her home medications Dementia continue on all her home medications Anxiety and depression continue on home medications Coronary artery disease history of CABG continue on home medications Heparin for the mechanical aortic valve or nothing surgery planned sooner hold at 2 AM so patient can have surgery tomorrow Date of Surgery: Mar 12, 2017 Preoperative Diagnosis: Impacted left femoral neck fracture Postoperative Diagnosis: Procedure: Left hip pinning Surgeon: Anastacio Belle SCDs and JAD madrid for DVT PPI for GI prophylaxis Will need to restart Coumadin in the future due to her chronic mechanical valve DAILY INR RELOAD COUMADIN- HEPARIN BRIDGE AND COUMADIN HYPOKALEMIA 50MEQ KCL Replace potassium and magnesium and phosphorus see orders A.mLevi Baxter DO Mar 14, 2017 12:43
[2017-03-14] MEDS: ACETAMINOPHEN/HYDROcodone 325 MG/10 MG TAB PO PRN ×2 (12:58→21:09)
[2017-03-14] MEDS: cefTRIAXone INJ 1,000 MG in SODIUM CHLORIDE 0.9% INJ 100 ML IV SCH (16:41)
[2017-03-14] MEDS: DONEPEZIL HCL 5 MG TAB PO SCH (21:05)
[2017-03-14] MEDS: QUEtiapine FUMARATE 25 MG TAB PO SCH (21:06)
[2017-03-14] MEDS: ATORVASTATIN 40 MG TAB PO SCH (21:06)
[2017-03-15] VITALS (9 sets, daily range): BP systolic 167–176; BP diastolic 66–85; PULSE 62–84; RESP 16–20; TEMP 97.6–98.6; O2SAT 96–99
[2017-03-15] MEDS: SODIUM CHLOR 0.45% 1000 ML INJ 1,000 ML IV SCH ×2 (03:05→12:46)
[2017-03-15] MEDS: MORPHINE SULFATE 4 MG/ML INJ IV PRN ×3 (05:04→22:25)
[2017-03-15] MEDS: ISOSORBIDE MONONITRATE 60 MG TAB PO SCH (06:06)
[2017-03-15] MEDS: WARFARIN SOD 3 MG TAB PO SCH (08:25)
[2017-03-15] MEDS: ATENOLOL 25 MG TAB PO SCH (08:25)
[2017-03-15] MEDS: DOCUSATE SODIUM 50 MG/SENNA 8.6 MG TAB PO SCH ×2 (08:25→22:24)
[2017-03-15] MEDS: POTASSIUM PHOSPHATE MONOBASIC 500 MG TAB PO SCH ×2 (08:25→22:23)
[2017-03-15] MEDS: PANTOPRAZOLE SOD 40 MG DELAYED RELEASE TAB PO SCH (08:25)
[2017-03-15] MEDS: SERTRALINE HCL 100 MG TAB PO SCH (08:25)
[2017-03-15] MEDS: CHOLECALCIFEROL (VIT D3) 5000 UNIT CAP PO SCH (08:25)
[2017-03-15] MEDS: SODIUM CHLORIDE 0.9% FLUSH 10 ML FLUSH IV FLUSH SCH ×2 (08:26→22:24)
[2017-03-15] MEDS: MEMANTINE HCL 10 MG TAB PO SCH ×2 (08:26→22:24)
[2017-03-15] MEDS: SODIUM CHLORIDE 0.9% FLUSH 5 ML FLUSH IVF SCH (08:26)
[2017-03-15 09:23] LABS: AUTOMATED NEUTROPHIL # 4.9 TH/MM3 (1.8-7.7); BASOPHIL % 0.5 % (0.0-2.0); EOSINOPHIL # 0.5 TH/MM3 (0-0.4); EOSINOPHIL % 6.6 % (0.0-4.0); HEMATOCRIT 28.7 % (35.0-46.0); LYMPH % 17.2 % (9.0-44.0); LYMPHOCYTE # 1.2 TH/MM3 (1.0-4.8); MEAN CELL VOLUME 91.6 FL (80.0-100.0); MEAN CORPUSCULAR HGB CONC 33.8 % (32.0-36.0); MONO % 7.7 % (0.0-8.0); PLATELET COUNT 215 TH/MM3 (150-450); RED BLOOD COUNT 3.13 MIL/MM3 (4.00-5.30); RED CELL DISTRIBUTION WIDTH 15.1 % (11.6-17.2); WHITE BLOOD COUNT 7.2 TH/MM3 (4.0-11.0)
[2017-03-15 09:31] LABS: INTERNATIONAL NORMALIZED RATIO 1.5 RATIO; PROTHROMBIN TIME - PATIENT 17.2 SEC (9.8-11.6)
[2017-03-15 09:33] LABS: HEMO FLAGS AUTO DIFF
[2017-03-15 09:56] LABS: ALKALINE PHOSPHATASE 125 U/L (45-117); ALT (GPT) 31 U/L (10-53); ANION GAP 12 MEQ/L (5-15); AST (GOT) 35 U/L (15-37); BICARBONATE 25.2 MEQ/L (21.0-32.0); BLOOD UREA NITROGEN 7 MG/DL (7-18); CHLORIDE 99 MEQ/L (98-107); GLOMERULAR FILTRATION RATE 76 ML/MIN (>89); MAGNESIUM 2.1 MG/DL (1.5-2.5); SODIUM (NA) 136 MEQ/L (136-145); TOTAL BILIRUBIN ADULT 0.6 MG/DL (0.2-1.0)
[2017-03-15 09:59] LABS: POTASSIUM 2.7 MEQ/L (3.5-5.1)
[2017-03-15] MEDS ORDERED: POTASSIUM CHLORIDE 10 MEQ CONTROLLED RELEASE TAB PO ONE (10:30)
[2017-03-15 10:56] LABS: ACANTHOCYTES OCC (NORMAL); KERATOCYTES OCC (NORMAL); OVALOCYTES 1+ (NORMAL)
[2017-03-15 10:57] LABS: SCAN/DIFF AUTO DIFF CONFIRMED
[2017-03-15] MEDS: POTASSIUM CHLORIDE 10 MEQ CONTROLLED RELEASE TAB PO SCH ×2 (11:31→22:24)
[2017-03-15] MEDS ORDERED: SODIUM PHOSPHATE INJ 30 MMOL in SODIUM CHLOR 0.9% 250 ML INJ 250 ML IV ONE (12:00)
[2017-03-15] MEDS ORDERED: HEPARIN-D5W 25,000 U/250 ML 250 ML IV PRN (12:30)
[2017-03-15] MEDS ORDERED: HEPARIN SODIUM - IV 10,000 UNITS/10 ML VIAL IV ONE (12:30)
--- NOTE | 2017-03-15 12:30 | HHI.PR ---
Subjective Remarks Patient is a 86-year-old assisted patient. Who presented to the emergency department with pain in the left hip. Patient was found to have a left femoral neck fracture. Patient is confused and demented. Patient is normally similarly somewhat ambulatory without assistance has not been moving for the last 4 days since her fall Patient was brought to the emergency department for evaluation of her left femoral neck fracture will undergo go evaluation with orthopedic surgery and will keep her nothing by mouth in case surgery is tomorrow Patient is supposed to have a mechanical valve. For which she supposed to be on chronic Coumadin but is subtherapeutic at this time will hold this so that she can have surgery as soon as possible We'll started on a heparin drip that can be discontinued once surgery decide when to take her to fix the hip 9-4 surgery decided to perform surgery tomorrow Will hold heparin drip starting at 2 AM tonight A.m. labs No new complaints Will need long-term anticoagulation due to her chronic mechanical valve 9-5 HAD SURGERY TODAY Date of Surgery: Mar 12, 2017 Preoperative Diagnosis: Impacted left femoral neck fracture Postoperative Diagnosis: Procedure: Left hip pinning Surgeon: Anastacio Belle SEEN POST OP IN HER ROOM DW PT AND FAMILY NO NEW COMPLAINTS WILL NEED REHAB AFTER DC WILL NEED TO BE RELOADED ON COUMADIN 9-6 RELOAD COUMADIN AM LABS CONFUSED BUT IS CHRONICALLY CONFUSED PER FAMILY HAS DEMENTIA RELOAD COUMADIN 9-7 continue to re-load to Coumadin Replace potassium and magnesium and phosphorus Discussed with patient and RN Monitor labs await SNF acceptance and placement 9-8 NEEDS INR BETWEEN 2.0 AND 3.0 NOT THERE YET INCREASE COUMADIN TO 4MG PO DAILY REPLACE, POTASSIUM, MAGNESIUM HYPOPHOS Objective Vitals Vital Signs Date Time Temp Pulse Resp B/P (MAP) Pulse Ox O2 Delivery O2 Flow Rate FiO2 03/15/17 12:06 97.8 62 20 175/84 (114) 98 03/15/17 08:42 Nasal Cannula 2.00 Humidified 03/15/17 08:03 97.9 78 20 175/81 (112) 96 03/15/17 04:55 97.6 84 16 176/85 (115) 99 03/14/17 23:45 97.1 65 16 151/70 (97) 96 03/14/17 22:15 Nasal Cannula 2.00 Humidified 03/14/17 20:02 97.3 77 16 193/93 (126) 96 03/14/17 18:02 95 21 03/14/17 16:00 97.9 70 16 169/83 (111) 95 I/O 03/14/17 03/14/17 03/14/17 03/15/17 03/15/17 03/15/17 07:00 15:00 23:00 07:00 15:00 23:00 Intake Total 240 ml 118 ml 480 ml 1539 ml Output Total 850 ml Balance 240 ml 118 ml 480 ml 689 ml Intake Oral 240 ml 480 ml 120 ml IV Total 118 ml 1419 ml Output Urine Total 850 ml # Voids 4 4 6 # Bowel Movements 0 0 0 Result Diagram: 03/15/17 0736 03/15/17 0736 Other Results Laboratory Tests Test 03/12/17 15:25 03/12/17 15:26 03/12/17 21:05 03/13/17 05:50 White Blood Count 7.9 TH/MM3 7.6 TH/MM3 Red Blood Count 2.98 MIL/MM3 2.93 MIL/MM3 Hemoglobin 9.5 GM/DL 9.1 GM/DL Hematocrit 27.9 % 27.4 % Mean Corpuscular Volume 93.5 FL 93.6 FL Mean Corpuscular Hemoglobin 31.9 PG 31.2 PG Mean Corpuscular Hemoglobin Concent 34.1 % 33.3 % Red Cell Distribution Width 15.5 % 15.5 % Platelet Count 160 TH/MM3 171 TH/MM3 Mean Platelet Volume 9.0 FL 9.0 FL Neutrophils (%) (Auto) 90.2 % 73.2 % Lymphocytes (%) (Auto) 5.0 % 12.7 % Monocytes (%) (Auto) 3.1 % 7.2 % Eosinophils (%) (Auto) 1.5 % 6.6 % Basophils (%) (Auto) 0.2 % 0.3 % Neutrophils # (Auto) 7.1 TH/MM3 5.6 TH/MM3 Lymphocytes # (Auto) 0.4 TH/MM3 1.0 TH/MM3 Monocytes # (Auto) 0.2 TH/MM3 0.5 TH/MM3 Eosinophils # (Auto) 0.1 TH/MM3 0.5 TH/MM3 Basophils # (Auto) 0.0 TH/MM3 0.0 TH/MM3 CBC Comment DIFF FINAL DIFF FINAL Differential Comment Prothrombin Time 14.7 SEC 15.2 SEC Prothromb Time International Ratio 1.3 RATIO 1.4 RATIO Activated Partial Thromboplast Time 40.7 SEC 57.1 SEC 49.0 SEC 25-Hydroxy Vitamin D Total 26.6 ng/ML Blood Urea Nitrogen 8 MG/DL 8 MG/DL Creatinine 0.76 MG/DL 0.84 MG/DL Random Glucose 155 MG/DL 96 MG/DL Total Protein 6.5 GM/DL 6.4 GM/DL Albumin 2.7 GM/DL 2.7 GM/DL Calcium Level 7.8 MG/DL 8.2 MG/DL Phosphorus Level 2.2 MG/DL 1.8 MG/DL Magnesium Level 1.9 MG/DL 1.9 MG/DL Alkaline Phosphatase 108 U/L 102 U/L Aspartate Amino Transf (AST/SGOT) 28 U/L 33 U/L Alanine Aminotransferase (ALT/SGPT) 30 U/L 30 U/L Total Bilirubin 0.4 MG/DL 0.3 MG/DL Sodium Level 142 MEQ/L 142 MEQ/L Potassium Level 3.4 MEQ/L 3.1 MEQ/L Chloride Level 110 MEQ/L 108 MEQ/L Carbon Dioxide Level 24.6 MEQ/L 25.8 MEQ/L Anion Gap 7 MEQ/L 8 MEQ/L Estimat Glomerular Filtration Rate 72 ML/MIN 64 ML/MIN Test 03/14/17 07:07 03/14/17 07:30 03/15/17 07:36 White Blood Count 7.2 TH/MM3 7.2 TH/MM3 Red Blood Count 2.98 MIL/MM3 3.13 MIL/MM3 Hemoglobin 9.3 GM/DL 9.7 GM/DL Hematocrit 27.6 % 28.7 % Mean Corpuscular Volume 92.8 FL 91.6 FL Mean Corpuscular Hemoglobin 31.1 PG 31.0 PG Mean Corpuscular Hemoglobin Concent 33.5 % 33.8 % Red Cell Distribution Width 15.7 % 15.1 % Platelet Count 206 TH/MM3 215 TH/MM3 Mean Platelet Volume 9.3 FL 9.0 FL Neutrophils (%) (Auto) 75.6 % 68.0 % Lymphocytes (%) (Auto) 13.9 % 17.2 % Monocytes (%) (Auto) 8.8 % 7.7 % Eosinophils (%) (Auto) 1.4 % 6.6 % Basophils (%) (Auto) 0.3 % 0.5 % Neutrophils # (Auto) 5.4 TH/MM3 4.9 TH/MM3 Lymphocytes # (Auto) 1.0 TH/MM3 1.2 TH/MM3 Monocytes # (Auto) 0.6 TH/MM3 0.6 TH/MM3 Eosinophils # (Auto) 0.1 TH/MM3 0.5 TH/MM3 Basophils # (Auto) 0.0 TH/MM3 0.0 TH/MM3 CBC Comment AUTO DIFF AUTO DIFF Differential Total Cells Counted 100 Neutrophils % (Manual) 75 % Lymphocytes % 16 % Monocytes % 4 % Neutrophils # (Manual) 5.8 TH/MM3 Metamyelocytes 4 % Myelocytes 1 % Nucleated Red Blood Cells 1 /100 WBC Differential Comment FINAL DIFF MANUAL AUTO DIFF CONFIRMED Platelet Estimate NORMAL Platelet Morphology Comment NORMAL Tear Drop Cells 1+ Ovalocytes 1+ 1+ Acanthocytes OCC OCC Prothrombin Time 19.0 SEC 17.2 SEC Prothromb Time International Ratio 1.7 RATIO 1.5 RATIO Activated Partial Thromboplast Time 59.5 SEC Blood Urea Nitrogen 12 MG/DL 7 MG/DL Creatinine 0.87 MG/DL 0.73 MG/DL Random Glucose 101 MG/DL 90 MG/DL Total Protein 6.7 GM/DL 6.7 GM/DL Albumin 3.0 GM/DL 3.0 GM/DL Calcium Level 8.2 MG/DL 8.1 MG/DL Phosphorus Level 1.8 MG/DL 1.9 MG/DL Magnesium Level 1.7 MG/DL 2.1 MG/DL Alkaline Phosphatase 129 U/L 125 U/L Aspartate Amino Transf (AST/SGOT) 42 U/L 35 U/L Alanine Aminotransferase (ALT/SGPT) 33 U/L 31 U/L Total Bilirubin 0.6 MG/DL 0.6 MG/DL Sodium Level 141 MEQ/L 136 MEQ/L Potassium Level 2.6 MEQ/L 2.7 MEQ/L Chloride Level 103 MEQ/L 99 MEQ/L Carbon Dioxide Level 25.0 MEQ/L 25.2 MEQ/L Anion Gap 13 MEQ/L 12 MEQ/L Estimat Glomerular Filtration Rate 62 ML/MIN 76 ML/MIN Keratocytes OCC Imaging Last Impressions Hip X-Ray 03/12/17 0000 Signed Impressions: Service Date/Time: Sunday, March 12, 2017 10:21 - CONCLUSION: Screw fixation of the left hip subcapital fracture. Near-anatomic alignment. No acute complication demonstrated. Ruben Aguirre MD CT Angiography 03/10/17 1518 Signed Impressions: Service Date/Time: Friday, March 10, 2017 15:44 - CONCLUSION: Cardiomegaly with reflux into the hepatic veins. There is no central pulmonary emboli. Minimal aneurysmal dilatation descending aorta. Levi Delaney MD FACR Hip and Pelvis X-Ray 03/10/17 1422 Signed Impressions: Service Date/Time: Friday, March 10, 2017 14:51 - CONCLUSION: Probable femoral neck fracture. CT scan would be of benefit. Levi Delaney MD FACR Chest X-Ray 03/10/17 1422 Signed Impressions: Service Date/Time: Friday, March 10, 2017 14:54 - CONCLUSION: No acute disease. Levi Delaney MD FACR Pelvis CT 03/10/17 0000 Signed Impressions: Service Date/Time: Friday, March 10, 2017 15:51 - CONCLUSION: 1. Subtle slightly impacted subcapital left hip fracture. 2. Osteopenia and degenerative change in the lumbar spine. 3. Diverticulosis. uRben Dalton MD Objective Remarks GENERAL: This is a well-nourished, well-developed patient, in no apparent distress.dementia not oriented and not speaking Singaporean SKIN: No rashes, ecchymoses or lesions. Cool and dry. HEAD: Atraumatic. Normocephalic. No temporal or scalp tenderness. EYES: Pupils equal round and reactive. Extraocular motions intact. No scleral icterus. No injection or drainage. ENT: Nose without bleeding, purulent drainage or septal hematoma. Throat without erythema, tonsillar hypertrophy or exudate. Uvula midline. Airway patent. NECK: Trachea midline. No JVD or lymphadenopathy. Supple, nontender, no meningeal signs. CARDIOVASCULAR: IRRegular rate and rhythm without murmurs, gallops, or rubs. Paced rate and rhythm S1-S2 no S3 or S4 does have a click RESPIRATORY: Clear to auscultation. Breath sounds equal bilaterally. No wheezes , rales, or rhonchi. GASTROINTESTINAL: Abdomen soft, non-tender, nondistended. No hepato-splenomegaly , or palpable masses. No guarding. MUSCULOSKELETAL: Extremities without clubbing, cyanosis, or edema. No joint tenderness, effusion, or edema noted. No calf tenderness. Negative Homans sign bilaterally. Tender left hip increased range of motion NEUROLOGICAL: Awake and alert but very confused. Cranial nerves II through XII intact. Motor and sensory grossly within normal limits. 4 out of 5 muscle strength in all muscle groups. ABNormal speech. Insight and judgment not able to be measured Patient is actively demented mood and behavior inappropriate Procedures Date of Surgery: Mar 12, 2017 Preoperative Diagnosis: Impacted left femoral neck fracture Postoperative Diagnosis: Procedure: Left hip pinning Surgeon: Anastacio Belle Medications and IVs Current Medications Sodium Chloride 1,000 ml @ 150 mls/hr ONCE ONCE IV Last administered on 15:19; Start 03/10/17 at 14:30; Stop 03/10/17 at 21:09; Status DC Morphine Sulfate (Morphine Inj) 2 mg ONCE ONCE IV PUSH Last administered on 15:35; Start 03/10/17 at 15:30; Stop 03/10/17 at 15:31; Status DC Ondansetron HCl (Zofran Inj) 4 mg ONCE ONCE IV PUSH Last administered on 16:21; Start 03/10/17 at 15:30; Stop 03/10/17 at 15:31; Status DC Iodixanol (VISIPAQUE 320 INJ (Rad CT)) 50 ml STK-MED ONCE IV ; Start 03/10/17 at 16:21; Stop 03/10/17 at 16:22; Status DC Sodium Chloride 1,000 ml @ 75 mls/hr [id number] IV Last administered on 03/15/17 03:05; Start 03/10/17 at 16:20 Sodium Chloride (NS Flush) 2 ml UNSCH PRN IV FLUSH FLUSH AFTER USING IV ACCESS ; Start 03/10/17 at 16:30 Sodium Chloride (NS Flush) 2 ml BID IV FLUSH Last administered on 03/13/17 22: 00; Start 03/10/17 at 21:00 Acetaminophen (Tylenol) 650 mg Q4H PRN PO TEMP > 100.4; Start 03/10/17 at 16:30 Ondansetron HCl (Zofran Inj) 4 mg Q6H PRN IVP NAUSEA OR VOMITING; Start at 16:30 Prochlorperazine (Compazine Supp) 25 mg Q12H PRN RECTAL NAUSEA OR VOMITING; Start 03/10/17 at 16:30 Acetaminophen (Tylenol) 650 mg Q6H PRN PO PAIN SCALE 1 TO 2; Start 03/10/17 at 16:30 Acetaminophen/ Hydrocodone Bitart ([place] 5-325 Mg) 1 tab Q4H PRN PO PAIN SCALE 3 TO 5 Last administered on 03/12/17 03:16; Start 03/10/17 at 16:30 Acetaminophen/ Hydrocodone Bitart ([place] 10-325 Mg) 1 tab Q4H PRN PO PAIN SCALE 6 TO 10 Last administered on 03/14/17 21:09; Start 03/10/17 at 16:30 Morphine Sulfate (Morphine Inj) 2 mg Q3H PRN IV Pain 3-5; if unable to take PO Last administered on 03/15/17 11:32; Start 03/10/17 at 16:30 Morphine Sulfate (Morphine Inj) 4 mg Q3H PRN IV Pain 6-10;if unable to take PO Last administered on 03/15/17 05:04; Start 03/10/17 at 16:30 Naloxone HCl (Narcan Inj) 0.4 mg UNSCH PRN IV SEE LABEL COMMENTS; Start at 16:30 Senna/Docusate Sodium (Soila-Colace) 1 tab BID PO Last administered on 03/15/17 08:25; Start 03/10/17 at 21:00 Magnesium Hydroxide (Milk Of Magnesia Liq) 30 ml Q12H PRN PO MILD - MODERATE CONSTIPATION; Start 03/10/17 at 16:30 Sennosides (Senokot) 17.2 mg Q12H PRN PO MODERATE - SEVERE CONSTIPATION; Start 03/10/17 at 16:30 Bisacodyl (Dulcolax Supp) 10 mg DAILY PRN RECTAL SEVERE CONSITIPATION; Start at 16:30 Lactulose (Lactulose Liq) 30 ml DAILY PRN PO SEVERE CONSITIPATION; Start at 16:30 Ceftriaxone Sodium 1000 mg/ Sodium Chloride 100 ml @ 200 mls/hr Q24H IV Last administered on 03/14/17 16:41; Start 03/10/17 at 18:00 Atenolol (Tenormin) 25 mg DAILY PO Last administered on 03/15/17 08:25; Start 03/11/17 at 09:00 Atorvastatin Calcium (Lipitor) 40 mg HS PO Last administered on 03/14/17 21:06 ; Start 03/10/17 at 21:00 Donepezil HCl (Aricept) 10 mg HS PO Last administered on 03/14/17 21:05; Start 03/10/17 at 21:00 Isosorbide Mononitrate (Imdur) 60 mg DAILY@0700 PO Last administered on 06:06; Start 03/11/17 at 07:00 Memantine (Namenda) 10 mg BID PO Last administered on 03/15/17 08:26; Start 03/10/17 at 21:00 Quetiapine Fumarate (SEROquel) 50 mg HS PO Last administered on 03/14/17 21:06 ; Start 03/10/17 at 21:00 Sertraline HCl (Zoloft) 100 mg DAILY PO Last administered on 03/15/17 08:25; Start 03/11/17 at 09:00 Heparin Sodium (Porcine) (Heparin Inj) 4,000 units ONCE ONCE IV Last administered on 03/10/17 18:46; Start 03/10/17 at 17:45; Stop 03/10/17 at 17:56; Status DC Heparin Sodium/ Dextrose 250 ml @ 9.72 mls/hr TITRATE PRN IV Coagulation management Last administered on 03/11/17 21:41; Start 03/10/17 at 17:45; Stop 03/14/17 at 10:12; Status DC Pantoprazole Sodium (Protonix) 40 mg DAILY PO Last administered on 03/15/17 08: 25; Start 03/11/17 at 09:00 Cefazolin Sodium (Ancef Inj) 2,000 mg STK-MED ONCE .ROUTE ; Start 03/11/17 at 07: 19; Stop 03/11/17 at 07:20; Status DC Gentamicin Sulfate (Gentamicin Inj) 240 mg STK-MED ONCE .ROUTE ; Start 03/11/17 at 07:19; Stop 03/11/17 at 07:20; Status DC Vancomycin HCl (Vancomycin Inj) 1,000 mg STK-MED ONCE .ROUTE ; Start 03/11/17 at 07:19; Stop 03/11/17 at 07:20; Status DC Vancomycin HCl (Vancomycin Inj) 2,000 mg STK-MED ONCE .ROUTE ; Start 03/11/17 at 07:33; Stop 03/11/17 at 07:34; Status DC Lactated Ringer's 1,000 ml @ 30 mls/hr Q24H PRN IV SEE LABEL COMMENTS; Start at 08:45; Stop 03/14/17 at 08:44; Status DC Sodium Chloride 500 ml @ 30 mls/hr [id number] PRN IV SEE LABEL COMMENTS; Start 03/11/17 at 08:45; Stop 03/14/17 at 08:44; Status DC Metoprolol Tartrate (Lopressor) 25 mg ASPHALT LAYER PRN PO SEE LABEL COMMENTS; Start 03/11/17 at 08:45; Stop 03/14/17 at 08:44; Status DC Povidone Iodine (Betadine 5% Antisepsis Kit) 1 applic ASPHALT LAYER PRN EACH NARE SEE LABEL COMMENTS; Start 03/11/17 at 08:45; Stop 03/14/17 at 08:44; Status DC Chlorhexidine Gluconate (Chlorhexidine 2% Cloth) 3 pack [place]AYER PRN TOPICAL SEE LABEL COMMENTS; Start 03/11/17 at 08:45; Stop 03/14/17 at 08:44; Status DC Insulin Human Regular (NovoLIN R INJ) See Protocol Table ... ASPHALT LAYER PRN SQ SEE PROTOCOL TABLE; Start 03/11/17 at 08:45; Stop 03/14/17 at 08:44; Status DC Vancomycin HCl (Vancomycin Inj) 1,000 mg STK-MED ONCE .ROUTE Last administered on 03/12/17 09:56; Start 03/12/17 at 08:50; Stop 03/12/17 at 08:51; Status DC Sodium Chloride 250 ml @ As Directed STK-MED ONCE .ROUTE ; Start 03/12/17 at 08: 50; Stop 03/12/17 at 08:51; Status DC Cefazolin Sodium (Ancef Inj) 1,000 mg STK-MED ONCE .ROUTE Last administered on 03/12/17 09:57; Start 03/12/17 at 09:12; Stop 03/12/17 at 09:13; Status DC Bupivacaine HCl/ Epinephrine Bitart (Sensorcaine-Epinephrine 0.25% Inj) 50 ml STK-MED ONCE .ROUTE Last administered on 03/12/17 10:00; Start 03/12/17 at 10:23 ; Stop 03/12/17 at 10:24; Status DC IV Flush (NS Flush) 2 ml UNSCH PRN IVF FLUSH AFTER USING IV ACCESS; Start at 10:30 IV Flush (NS Flush) 2 ml BID IVF Last administered on 03/13/17 21:00; Start 03/12/17 at 21:00 Miscellaneous Information (Post-op Orders (for Pharmacy)) STAT ONCE XX ; Start 03/12/17 at 10:30; Stop 03/12/17 at 15:19; Status DC Acetaminophen/ Hydrocodone Bitart ([place] 5-325 Mg) 1 tab Q4H PRN PO PAIN 3<10 ; Start 03/12/17 at 10:30; Stop 03/12/17 at 16:33; Status DC Cefazolin Sodium 1000 mg/Sodium Chloride 100 ml @ 200 mls/hr Q6H IV Last administered on 03/13/17 04:52; Start 03/12/17 at 16:00; Stop 03/13/17 at 04:29; Status DC Morphine Sulfate (Morphine Inj) 3 mg Q3H PRN IV PUSH break thru pain Last administered on 03/13/17 02:59; Start 03/12/17 at 10:30 Ergocalciferol (Drisdol) 50,000 units ONCE ONCE PO ; Start 03/12/17 at 10:30; Stop 03/12/17 at 15:13; Status DC Cholecalciferol (Vitamin D3) 5,000 units DAILY PO Last administered on 08:25; Start 03/13/17 at 09:00 Warfarin Sodium (Coumadin) 3 mg DAILY PO Last administered on 03/15/17 08:25; Start 03/12/17 at 16:00; Stop 03/15/17 at 10:31; Status DC Albuterol Sulfate (*ALBUTEROL NEB PERIprocedure ONLY) 2.5 mg STK-MED ONCE NEB Last administered on 03/12/17 11:51; Start 03/12/17 at 11:50; Stop 03/12/17 at 11: 51; Status DC Fentanyl Citrate (fentaNYL INJ) 100 mcg STK-MED ONCE .ROUTE ; Start 03/12/17 at 11:53; Stop 03/12/17 at 11:54; Status DC Labetalol HCl (*TRANDATE INJ PERIprocedural Use ONLY) 100 mg STK-MED ONCE .ROUTE Last administered on 03/12/17 11:54; Start 03/12/17 at 11:53; Stop at 11:54; Status DC Miscellaneous Information ALL NURSING DEPARTME... UNSCH PRN .XX SEE LABEL COMMENTS; Start 03/12/17 at 10:58; Stop 03/13/17 at 10:57; Status DC Potassium Bicarb/ Potassium Chloride (K-Lyte Cl Eff) 50 meq ONCE ONCE PO Last administered on 03/13/17 17:12; Start 03/13/17 at 16:30; Stop 03/13/17 at 16: 31; Status DC Magnesium Sulfate/ Dextrose 100 ml @ 100 mls/hr Q1H IV Last administered on 12:59; Start 03/14/17 at 12:00; Stop 03/14/17 at 13:59; Status DC Potassium Chloride (KCl) 40 meq ONCE ONCE PO Last administered on 03/14/17 12: 10; Start 03/14/17 at 11:15; Stop 03/14/17 at 11:55; Status DC Potassium Chloride (KCl) 40 meq ONCE ONCE PO Last administered on 03/14/17 12: 10; Start 03/14/17 at 11:15; Stop 03/14/17 at 11:55; Status DC Potassium Phosphate (K-Phos) 1,000 mg Q12HR PO Last administered on 03/15/17 08 :25; Start 03/14/17 at 12:00 Potassium Chloride (KCl) 40 meq Q12HR PO Last administered on 03/15/17 11:31; Start 03/15/17 at 10:30 Potassium Chloride (KCl) 40 meq ONCE ONCE PO Last administered on 03/15/17 11: 43; Start 03/15/17 at 10:30; Stop 03/15/17 at 10:35; Status DC Sodium Phosphate 30 mmol/Sodium Chloride 260 ml @ 43.333 mls/ hr ONCE ONCE IV ; Start 03/15/17 at 12:00; Stop 03/15/17 at 17:59 Warfarin Sodium (Coumadin) 4 mg DAILY@1600 PO ; Start 03/16/17 at 16:00 Patient Medication Teaching (Coumadin Booklet) 1 ONCE ONCE OTHER Last administered on 03/15/17t 10:45; Start 03/15/17 at 10:45; Stop 03/15/17 at 10:46; Status DC Urinary Catheter: No Vascular Central Line Catheter: No A/P Problem List: (1) Mechanical heart valve present ICD Code: Z95.2 - Presence of prosthetic heart valve (2) Hx of CABG ICD Code: Z95.1 - Presence of aortocoronary bypass graft Status: Acute (3) Aortic valve replaced ICD Code: Z95.2 - Presence of prosthetic heart valve Status: Acute (4) Dementia with behavioral disturbance ICD Code: F03.91 - Unspecified dementia with behavioral disturbance Status: Chronic (5) Fracture of femoral neck, left ICD Code: S72.002A - Fracture of unspecified part of neck of left femur, initial encounter for closed fracture (6) Pacemaker ICD Code: Z95.0 - Presence of cardiac pacemaker (7) HTN (hypertension) ICD Code: I10 - Essential (primary) hypertension Status: Chronic (8) CAD (coronary artery disease) ICD Code: I25.10 - Atherosclerotic heart disease of three affiliated coronary artery without angina pectoris Status: Chronic (9) Atrial fibrillation ICD Code: I48.91 - Unspecified atrial fibrillation Assessment and Plan Patient has left femoral neck fracture Will consult orthopedic surgery. Patient will be moderate risk for surgery due to advancing dementia or coronary disease and history of aortic valve mechanical valve Will need to be started on heparin if no surgery is planned within the next day or so--will hold heparin drip starting at 2 AM So the patient to have surgery tomorrow Hypertension Continue on her home medications Dementia continue on all her home medications Anxiety and depression continue on home medications Coronary artery disease history of CABG continue on home medications Heparin for the mechanical aortic valve or nothing surgery planned sooner hold at 2 AM so patient can have surgery tomorrow Date of Surgery: Mar 12, 2017 Preoperative Diagnosis: Impacted left femoral neck fracture Postoperative Diagnosis: Procedure: Left hip pinning Surgeon: Anastacio Belle SCDs and JAD madrid for DVT PPI for GI prophylaxis Will need to restart Coumadin in the future due to her chronic mechanical valve DAILY INR RELOAD COUMADIN- LMW HEPARIN BRIDGE AND COUMADIN --NOT AT GOAL HYPOKALEMIA 50MEQ KCL Replace potassium and magnesium and phosphorus see Levi Bautista A.m., DO Mar 15, 2017 12:30
[2017-03-15] MEDS: ACETAMINOPHEN/HYDROcodone 325 MG/10 MG TAB PO PRN ×2 (13:20→18:34)
[2017-03-15 15:46] LABS: HEMATOCRIT 27.1 % (35.0-46.0); MEAN CORPUSCULAR HGB CONC 34.7 % (32.0-36.0); PLATELET COUNT 204 TH/MM3 (150-450); RED BLOOD COUNT 2.95 MIL/MM3 (4.00-5.30); RED CELL DISTRIBUTION WIDTH 15.3 % (11.6-17.2); REVIEW FLAG FINAL
[2017-03-15 15:59] LABS: INTERNATIONAL NORMALIZED RATIO 1.8 RATIO
[2017-03-15] MEDS: ENOXAPARIN SODIUM 60 MG/0.6 ML SYRINGE SQ SCH (16:07)
[2017-03-15] MEDS ORDERED: WARFARIN SOD 2 MG TAB PO ONE (17:15)
[2017-03-15] MEDS: ALPRAZolam 0.25 MG TAB PO PRN (18:00)
[2017-03-15] MEDS: cefTRIAXone INJ 1,000 MG in SODIUM CHLORIDE 0.9% INJ 100 ML IV SCH (19:18)
[2017-03-15] MEDS: QUEtiapine FUMARATE 25 MG TAB PO SCH (22:23)
[2017-03-15] MEDS: ATORVASTATIN 40 MG TAB PO SCH (22:23)
[2017-03-15] MEDS: DONEPEZIL HCL 5 MG TAB PO SCH (22:24)
[2017-03-16] VITALS: BP 143/68; PULSE 72; RESP 20; TEMP 97.7; O2SAT 97
[2017-03-16 04:00] VITALS: BP 138/65; PULSE 73; RESP 17; TEMP 98.1; O2SAT 93
[2017-03-16] MEDS: ENOXAPARIN SODIUM 60 MG/0.6 ML SYRINGE SQ SCH (04:40)
[2017-03-16] MEDS: SODIUM CHLOR 0.45% 1000 ML INJ 1,000 ML IV SCH (05:17)
[2017-03-16] MEDS: ISOSORBIDE MONONITRATE 60 MG TAB PO SCH (05:17)
[2017-03-16] MEDS: ALPRAZolam 0.25 MG TAB PO PRN ×2 (05:17→14:48)
[2017-03-16] MEDS: ACETAMINOPHEN/HYDROcodone 325 MG/10 MG TAB PO PRN (05:18)
[2017-03-16 07:54] LABS: AUTOMATED NEUTROPHIL # 3.7 TH/MM3 (1.8-7.7); BASOPHIL % 0.8 % (0.0-2.0); EOSINOPHIL # 0.7 TH/MM3 (0-0.4); EOSINOPHIL % 11.2 % (0.0-4.0); HEMATOCRIT 25.6 % (35.0-46.0); HEMO FLAGS DIFF FINAL; LYMPH % 17.9 % (9.0-44.0); LYMPHOCYTE # 1.1 TH/MM3 (1.0-4.8); MEAN CELL VOLUME 91.6 FL (80.0-100.0); MEAN CORPUSCULAR HEMOGLOBIN 31.7 PG (27.0-34.0); MEAN CORPUSCULAR HGB CONC 34.6 % (32.0-36.0); MONO % 8.1 % (0.0-8.0); PLATELET COUNT 176 TH/MM3 (150-450); RED BLOOD COUNT 2.79 MIL/MM3 (4.00-5.30); RED CELL DISTRIBUTION WIDTH 15.5 % (11.6-17.2)
[2017-03-16 07:57] LABS: APTT (PATIENT) 42.7 SEC (24.3-30.1); INTERNATIONAL NORMALIZED RATIO 2.5 RATIO; PROTHROMBIN TIME - PATIENT 28.5 SEC (9.8-11.6)
[2017-03-16 08:00] VITALS: BP 143/69; PULSE 66; RESP 20; TEMP 97.2; O2SAT 97
[2017-03-16 08:21] LABS: BICARBONATE 27.9 MEQ/L (21.0-32.0); CALCIUM-PROTEIN CORRECTED 7.9 MG/DL (8.5-10.1); MAGNESIUM 1.9 MG/DL (1.5-2.5); POTASSIUM 3.6 MEQ/L (3.5-5.1); TOTAL BILIRUBIN ADULT 0.4 MG/DL (0.2-1.0)
[2017-03-16] MEDS: DOCUSATE SODIUM 50 MG/SENNA 8.6 MG TAB PO SCH (09:21)
[2017-03-16] MEDS: CHOLECALCIFEROL (VIT D3) 5000 UNIT CAP PO SCH (09:21)
[2017-03-16] MEDS: POTASSIUM PHOSPHATE MONOBASIC 500 MG TAB PO SCH (09:21)
[2017-03-16] MEDS: ATENOLOL 25 MG TAB PO SCH (09:21)
[2017-03-16] MEDS: PANTOPRAZOLE SOD 40 MG DELAYED RELEASE TAB PO SCH (09:21)
[2017-03-16] MEDS: MEMANTINE HCL 10 MG TAB PO SCH (09:21)
[2017-03-16] MEDS: SERTRALINE HCL 100 MG TAB PO SCH (09:22)
[2017-03-16] MEDS: POTASSIUM CHLORIDE 10 MEQ CONTROLLED RELEASE TAB PO SCH (09:22)
[2017-03-16] MEDS: SODIUM CHLORIDE 0.9% FLUSH 10 ML FLUSH IV FLUSH SCH (09:23)
[2017-03-16 12:00] VITALS: BP 123/58; PULSE 61; RESP 20; TEMP 97.3; O2SAT 98
--- NOTE | 2017-03-16 12:42 | HHI.PR ---
Subjective Remarks Patient is a 86-year-old assisted patient. Who presented to the emergency department with pain in the left hip. Patient was found to have a left femoral neck fracture. Patient is confused and demented. Patient is normally similarly somewhat ambulatory without assistance has not been moving for the last 4 days since her fall Patient was brought to the emergency department for evaluation of her left femoral neck fracture will undergo go evaluation with orthopedic surgery and will keep her nothing by mouth in case surgery is tomorrow Patient is supposed to have a mechanical valve. For which she supposed to be on chronic Coumadin but is subtherapeutic at this time will hold this so that she can have surgery as soon as possible We'll started on a heparin drip that can be discontinued once surgery decide when to take her to fix the hip 9-4 surgery decided to perform surgery tomorrow Will hold heparin drip starting at 2 AM tonight A.m. labs No new complaints Will need long-term anticoagulation due to her chronic mechanical valve 9-5 HAD SURGERY TODAY Date of Surgery: Mar 12, 2017 Preoperative Diagnosis: Impacted left femoral neck fracture Postoperative Diagnosis: Procedure: Left hip pinning Surgeon: Anastacio Belle SEEN POST OP IN HER ROOM DW PT AND FAMILY NO NEW COMPLAINTS WILL NEED REHAB AFTER DC WILL NEED TO BE RELOADED ON COUMADIN 9-6 RELOAD COUMADIN AM LABS CONFUSED BUT IS CHRONICALLY CONFUSED PER FAMILY HAS DEMENTIA RELOAD COUMADIN 9-7 continue to re-load to Coumadin Replace potassium and magnesium and phosphorus Discussed with patient and RN Monitor labs await SNF acceptance and placement 9-8 NEEDS INR BETWEEN 2.0 AND 3.0 NOT THERE YET INCREASE COUMADIN TO 4MG PO DAILY REPLACE, POTASSIUM, MAGNESIUM HYPOPHOS 9-9 HOPEFULLY TO SNF IF CAN GET HER ANTIBIOTICS IF NOT THEN AFTER THE STORM TO SNF IF CAN GET HER ANTIBIOTICS Objective Vitals Vital Signs Date Time Temp Pulse Resp B/P (MAP) Pulse Ox O2 Delivery O2 Flow Rate FiO2 03/16/17 08:00 97.2 66 20 143/69 (93) 97 03/16/17 04:00 98.1 73 17 138/65 (89) 93 03/16/17 00:00 97.7 72 20 143/68 (93) 97 03/15/17 20:00 97.7 68 18 170/66 (100) 97 03/15/17 19:45 78 03/15/17 19:45 97 Nasal Cannula 3.00 03/15/17 17:50 98 Nasal Cannula 2.00 03/15/17 16:03 98.6 80 18 167/73 (104) 98 I/O 03/15/17 03/15/17 03/15/17 03/16/17 03/16/17 03/16/17 06:59 14:59 22:59 06:59 14:59 22:59 Intake Total 1539 ml 720 ml 1240 ml Output Total 850 ml Balance 689 ml 720 ml 1240 ml Intake Oral 120 ml 360 ml 240 ml IV Total 1419 ml 360 ml 1000 ml Output Urine Total 850 ml # Voids 6 3 3 # Bowel Movements 0 0 0 Result Diagram: 03/16/17 0655 03/16/17 0655 Other Results Laboratory Tests Test 03/14/17 07:07 03/14/17 07:30 03/15/17 07:36 03/15/17 15:20 White Blood Count 7.2 TH/MM3 7.2 TH/MM3 7.0 TH/MM3 Red Blood Count 2.98 MIL/MM3 3.13 MIL/MM3 2.95 MIL/MM3 Hemoglobin 9.3 GM/DL 9.7 GM/DL 9.4 GM/DL Hematocrit 27.6 % 28.7 % 27.1 % Mean Corpuscular Volume 92.8 FL 91.6 FL 92.0 FL Mean Corpuscular Hemoglobin 31.1 PG 31.0 PG 32.0 PG Mean Corpuscular Hemoglobin Concent 33.5 % 33.8 % 34.7 % Red Cell Distribution Width 15.7 % 15.1 % 15.3 % Platelet Count 206 TH/MM3 215 TH/MM3 204 TH/MM3 Mean Platelet Volume 9.3 FL 9.0 FL 8.3 FL Neutrophils (%) (Auto) 75.6 % 68.0 % Lymphocytes (%) (Auto) 13.9 % 17.2 % Monocytes (%) (Auto) 8.8 % 7.7 % Eosinophils (%) (Auto) 1.4 % 6.6 % Basophils (%) (Auto) 0.3 % 0.5 % Neutrophils # (Auto) 5.4 TH/MM3 4.9 TH/MM3 Lymphocytes # (Auto) 1.0 TH/MM3 1.2 TH/MM3 Monocytes # (Auto) 0.6 TH/MM3 0.6 TH/MM3 Eosinophils # (Auto) 0.1 TH/MM3 0.5 TH/MM3 Basophils # (Auto) 0.0 TH/MM3 0.0 TH/MM3 CBC Comment AUTO DIFF AUTO DIFF Differential Total Cells Counted 100 Neutrophils % (Manual) 75 % Lymphocytes % 16 % Monocytes % 4 % Neutrophils # (Manual) 5.8 TH/MM3 Metamyelocytes 4 % Myelocytes 1 % Nucleated Red Blood Cells 1 /100 WBC Differential Comment FINAL DIFF MANUAL AUTO DIFF CONFIRMED Platelet Estimate NORMAL Platelet Morphology Comment NORMAL Tear Drop Cells 1+ Ovalocytes 1+ 1+ Acanthocytes OCC OCC Prothrombin Time 19.0 SEC 17.2 SEC 21.0 SEC Prothromb Time International Ratio 1.7 RATIO 1.5 RATIO 1.8 RATIO Activated Partial Thromboplast Time 59.5 SEC 30.0 SEC Blood Urea Nitrogen 12 MG/DL 7 MG/DL Creatinine 0.87 MG/DL 0.73 MG/DL Random Glucose 101 MG/DL 90 MG/DL Total Protein 6.7 GM/DL 6.7 GM/DL Albumin 3.0 GM/DL 3.0 GM/DL Calcium Level 8.2 MG/DL 8.1 MG/DL Phosphorus Level 1.8 MG/DL 1.9 MG/DL Magnesium Level 1.7 MG/DL 2.1 MG/DL Alkaline Phosphatase 129 U/L 125 U/L Aspartate Amino Transf (AST/SGOT) 42 U/L 35 U/L Alanine Aminotransferase (ALT/SGPT) 33 U/L 31 U/L Total Bilirubin 0.6 MG/DL 0.6 MG/DL Sodium Level 141 MEQ/L 136 MEQ/L Potassium Level 2.6 MEQ/L 2.7 MEQ/L Chloride Level 103 MEQ/L 99 MEQ/L Carbon Dioxide Level 25.0 MEQ/L 25.2 MEQ/L Anion Gap 13 MEQ/L 12 MEQ/L Estimat Glomerular Filtration Rate 62 ML/MIN 76 ML/MIN Keratocytes OCC Test 03/16/17 06:55 White Blood Count 6.0 TH/MM3 Red Blood Count 2.79 MIL/MM3 Hemoglobin 8.8 GM/DL Hematocrit 25.6 % Mean Corpuscular Volume 91.6 FL Mean Corpuscular Hemoglobin 31.7 PG Mean Corpuscular Hemoglobin Concent 34.6 % Red Cell Distribution Width 15.5 % Platelet Count 176 TH/MM3 Mean Platelet Volume 8.6 FL Neutrophils (%) (Auto) 62.0 % Lymphocytes (%) (Auto) 17.9 % Monocytes (%) (Auto) 8.1 % Eosinophils (%) (Auto) 11.2 % Basophils (%) (Auto) 0.8 % Neutrophils # (Auto) 3.7 TH/MM3 Lymphocytes # (Auto) 1.1 TH/MM3 Monocytes # (Auto) 0.5 TH/MM3 Eosinophils # (Auto) 0.7 TH/MM3 Basophils # (Auto) 0.0 TH/MM3 CBC Comment DIFF FINAL Differential Comment Prothrombin Time 28.5 SEC Prothromb Time International Ratio 2.5 RATIO Activated Partial Thromboplast Time 42.7 SEC Blood Urea Nitrogen 9 MG/DL Creatinine 0.76 MG/DL Random Glucose 86 MG/DL Total Protein 5.5 GM/DL Albumin 2.3 GM/DL Calcium Level 7.1 MG/DL Phosphorus Level 2.8 MG/DL Magnesium Level 1.9 MG/DL Alkaline Phosphatase 97 U/L Aspartate Amino Transf (AST/SGOT) 22 U/L Alanine Aminotransferase (ALT/SGPT) 22 U/L Total Bilirubin 0.4 MG/DL Sodium Level 140 MEQ/L Potassium Level 3.6 MEQ/L Chloride Level 106 MEQ/L Carbon Dioxide Level 27.9 MEQ/L Anion Gap 6 MEQ/L Estimat Glomerular Filtration Rate 72 ML/MIN Protein Corrected Calcium 7.9 MG/DL Imaging Last Impressions Hip X-Ray 03/12/17 0000 Signed Impressions: Service Date/Time: Sunday, March 12, 2017 10:21 - CONCLUSION: Screw fixation of the left hip subcapital fracture. Near-anatomic alignment. No acute complication demonstrated. Ruben Aguirre MD CT Angiography 03/10/17 1518 Signed Impressions: Service Date/Time: Friday, March 10, 2017 15:44 - CONCLUSION: Cardiomegaly with reflux into the hepatic veins. There is no central pulmonary emboli. Minimal aneurysmal dilatation descending aorta. Levi Delaney MD FACR Hip and Pelvis X-Ray 03/10/17 1420 Signed Impressions: Service Date/Time: Friday, March 10, 2017 14:51 - CONCLUSION: Probable femoral neck fracture. CT scan would be of benefit. Levi Delaney MD FACR Chest X-Ray 03/10/17 0983 Signed Impressions: Service Date/Time: Friday, March 10, 2017 14:54 - CONCLUSION: No acute disease. Levi Delaney MD FACR Pelvis CT 03/10/17 0000 Signed Impressions: Service Date/Time: Friday, March 10, 2017 15:51 - CONCLUSION: 1. Subtle slightly impacted subcapital left hip fracture. 2. Osteopenia and degenerative change in the lumbar spine. 3. Diverticulosis. Ruben Dalton MD Objective Remarks GENERAL: This is a well-nourished, well-developed patient, in no apparent distress.dementia not oriented and not speaking [place] SKIN: No rashes, ecchymoses or lesions. Cool and dry. HEAD: Atraumatic. Normocephalic. No temporal or scalp tenderness. EYES: Pupils equal round and reactive. Extraocular motions intact. No scleral icterus. No injection or drainage. ENT: Nose without bleeding, purulent drainage or septal hematoma. Throat without erythema, tonsillar hypertrophy or exudate. Uvula midline. Airway patent. NECK: Trachea midline. No JVD or lymphadenopathy. Supple, nontender, no meningeal signs. CARDIOVASCULAR: IRRegular rate and rhythm without murmurs, gallops, or rubs. Paced rate and rhythm S1-S2 no S3 or S4 does have a click RESPIRATORY: Clear to auscultation. Breath sounds equal bilaterally. No wheezes , rales, or rhonchi. GASTROINTESTINAL: Abdomen soft, non-tender, nondistended. No hepato-splenomegaly , or palpable masses. No guarding. MUSCULOSKELETAL: Extremities without clubbing, cyanosis, or edema. No joint tenderness, effusion, or edema noted. No calf tenderness. Negative Homans sign bilaterally. Tender left hip increased range of motion NEUROLOGICAL: Awake and alert but very confused. Cranial nerves II through XII intact. Motor and sensory grossly within normal limits. 4 out of 5 muscle strength in all muscle groups. ABNormal speech. Insight and judgment not able to be measured Patient is actively demented mood and behavior inappropriate Procedures Date of Surgery: Mar 12, 2017 Preoperative Diagnosis: Impacted left femoral neck fracture Postoperative Diagnosis: Procedure: Left hip pinning Surgeon: Anastacio Belle Medications and IVs Current Medications Sodium Chloride 1,000 ml @ 150 mls/hr ONCE ONCE IV Last administered on t 15:19; Start 03/10/17 at 14:30; Stop 03/10/17 at 21:09; Status DC Morphine Sulfate (Morphine Inj) 2 mg ONCE ONCE IV PUSH Last administered on 15:35; Start 03/10/17 at 15:30; Stop 03/10/17 at 15:31; Status DC Ondansetron HCl (Zofran Inj) 4 mg ONCE ONCE IV PUSH Last administered on 16:21; Start 03/10/17 at 15:30; Stop 03/10/17 at 15:31; Status DC Iodixanol (VISIPAQUE 320 INJ (Rad CT)) 50 ml STK-MED ONCE IV ; Start 03/10/17 at 16:21; Stop 03/10/17 at 16:22; Status DC Sodium Chloride 1,000 ml @ 75 mls/hr [id number] IV Last administered on 03/16/17 05:17; Start 03/10/17 at 16:20 Sodium Chloride (NS Flush) 2 ml UNSCH PRN IV FLUSH FLUSH AFTER USING IV ACCESS ; Start 03/10/17 at 16:30 Sodium Chloride (NS Flush) 2 ml BID IV FLUSH Last administered on 03/16/17 09: 23; Start 03/10/17 at 21:00 Acetaminophen (Tylenol) 650 mg Q4H PRN PO TEMP > 100.4; Start 03/10/17 at 16:30 Ondansetron HCl (Zofran Inj) 4 mg Q6H PRN IVP NAUSEA OR VOMITING; Start at 16:30 Prochlorperazine (Compazine Supp) 25 mg Q12H PRN RECTAL NAUSEA OR VOMITING; Start 03/10/17 at 16:30 Acetaminophen (Tylenol) 650 mg Q6H PRN PO PAIN SCALE 1 TO 2; Start 03/10/17 at 16:30 Acetaminophen/ Hydrocodone Bitart (Abbott 5-325 Mg) 1 tab Q4H PRN PO PAIN SCALE 3 TO 5 Last administered on 03/12/17 03:16; Start 03/10/17 at 16:30 Acetaminophen/ Hydrocodone Bitart (Abbott 10-325 Mg) 1 tab Q4H PRN PO PAIN SCALE 6 TO 10 Last administered on 03/16/17 05:18; Start 03/10/17 at 16:30 Morphine Sulfate (Morphine Inj) 2 mg Q3H PRN IV Pain 3-5; if po not working Last administered on 03/15/17 22:25; Start 03/10/17 at 16:30 Morphine Sulfate (Morphine Inj) 4 mg Q3H PRN IV Pain 6-10;if unable to take PO Last administered on 03/15/17 05:04; Start 03/10/17 at 16:30; Stop 03/15/17 at 16: 09; Status DC Naloxone HCl (Narcan Inj) 0.4 mg UNSCH PRN IV SEE LABEL COMMENTS; Start at 16:30 Senna/Docusate Sodium (Soila-Colace) 1 tab BID PO Last administered on 03/16/17 09:21; Start 03/10/17 at 21:00 Magnesium Hydroxide (Milk Of Magnesia Liq) 30 ml Q12H PRN PO MILD - MODERATE CONSTIPATION; Start 03/10/17 at 16:30 Sennosides (Senokot) 17.2 mg Q12H PRN PO MODERATE - SEVERE CONSTIPATION; Start 03/10/17 at 16:30 Bisacodyl (Dulcolax Supp) 10 mg DAILY PRN RECTAL SEVERE CONSITIPATION; Start at 16:30 Lactulose (Lactulose Liq) 30 ml DAILY PRN PO SEVERE CONSITIPATION; Start at 16:30 Ceftriaxone Sodium 1000 mg/ Sodium Chloride 100 ml @ 200 mls/hr Q24H IV Last administered on 03/15/17 19:18; Start 03/10/17 at 18:00 Atenolol (Tenormin) 25 mg DAILY PO Last administered on 03/16/17 09:21; Start 03/11/17 at 09:00 Atorvastatin Calcium (Lipitor) 40 mg HS PO Last administered on 03/15/17 22:23 ; Start 03/10/17 at 21:00 Donepezil HCl (Aricept) 10 mg HS PO Last administered on 03/15/17 22:24; Start 03/10/17 at 21:00 Isosorbide Mononitrate (Imdur) 60 mg DAILY@0700 PO Last administered on 05:17; Start 03/11/17 at 07:00 Memantine (Namenda) 10 mg BID PO Last administered on 03/16/17 09:21; Start 03/10/17 at 21:00 Quetiapine Fumarate (SEROquel) 50 mg HS PO Last administered on 03/15/17 22:23 ; Start 03/10/17 at 21:00 Sertraline HCl (Zoloft) 100 mg DAILY PO Last administered on 03/16/17 09:22; Start 03/11/17 at 09:00 Heparin Sodium (Porcine) (Heparin Inj) 4,000 units ONCE ONCE IV Last administered on 03/10/17 18:46; Start 03/10/17 at 17:45; Stop 03/10/17 at 17:56; Status DC Heparin Sodium/ Dextrose 250 ml @ 9.72 mls/hr TITRATE PRN IV Coagulation management Last administered on 03/11/17 21:41; Start 03/10/17 at 17:45; Stop 03/14/17 at 10:12; Status DC Pantoprazole Sodium (Protonix) 40 mg DAILY PO Last administered on 03/16/17 09: 21; Start 03/11/17 at 09:00 Cefazolin Sodium (Ancef Inj) 2,000 mg STK-MED ONCE .ROUTE ; Start 03/11/17 at 07: 19; Stop 03/11/17 at 07:20; Status DC Gentamicin Sulfate (Gentamicin Inj) 240 mg STK-MED ONCE .ROUTE ; Start 03/11/17 at 07:19; Stop 03/11/17 at 07:20; Status DC Vancomycin HCl (Vancomycin Inj) 1,000 mg STK-MED ONCE .ROUTE ; Start 03/11/17 at 07:19; Stop 03/11/17 at 07:20; Status DC Vancomycin HCl (Vancomycin Inj) 2,000 mg STK-MED ONCE .ROUTE ; Start 03/11/17 at 07:33; Stop 03/11/17 at 07:34; Status DC Lactated Ringer's 1,000 ml @ 30 mls/hr Q24H PRN IV SEE LABEL COMMENTS; Start at 08:45; Stop 03/14/17 at 08:44; Status DC Sodium Chloride 500 ml @ 30 mls/hr [id number] PRN IV SEE LABEL COMMENTS; Start 03/11/17 at 08:45; Stop 03/14/17 at 08:44; Status DC Metoprolol Tartrate (Lopressor) 25 mg INTERIOR DESIGN COORDINATOR PRN PO SEE LABEL COMMENTS; Start 03/11/17 at 08:45; Stop 03/14/17 at 08:44; Status DC Povidone Iodine (Betadine 5% Antisepsis Kit) 1 applic INTERIOR DESIGN COORDINATOR PRN EACH NARE SEE LABEL COMMENTS; Start 03/11/17 at 08:45; Stop 03/14/17 at 08:44; Status DC Chlorhexidine Gluconate (Chlorhexidine 2% Cloth) 3 pack INTERIOR DESIGN COORDINATOR PRN TOPICAL SEE LABEL COMMENTS; Start 03/11/17 at 08:45; Stop 03/14/17 at 08:44; Status DC Insulin Human Regular (NovoLIN R INJ) See Protocol Table ... INTERIOR DESIGN COORDINATOR PRN SQ SEE PROTOCOL TABLE; Start 03/11/17 at 08:45; Stop 03/14/17 at 08:44; Status DC Vancomycin HCl (Vancomycin Inj) 1,000 mg STK-MED ONCE .ROUTE Last administered on 03/12/17 09:56; Start 03/12/17 at 08:50; Stop 03/12/17 at 08:51; Status DC Sodium Chloride 250 ml @ As Directed STK-MED ONCE .ROUTE ; Start 03/12/17 at 08: 50; Stop 03/12/17 at 08:51; Status DC Cefazolin Sodium (Ancef Inj) 1,000 mg STK-MED ONCE .ROUTE Last administered on 03/12/17 09:57; Start 03/12/17 at 09:12; Stop 03/12/17 at 09:13; Status DC Bupivacaine HCl/ Epinephrine Bitart (Sensorcaine-Epinephrine 0.25% Inj) 50 ml STK-MED ONCE .ROUTE Last administered on 03/12/17 10:00; Start 03/12/17 at 10:23 ; Stop 03/12/17 at 10:24; Status DC IV Flush (NS Flush) 2 ml UNSCH PRN IVF FLUSH AFTER USING IV ACCESS; Start at 10:30; Stop 03/15/17 at 17:01; Status DC IV Flush (NS Flush) 2 ml BID IVF Last administered on 03/13/17 21:00; Start 03/12/17 at 21:00; Stop 03/15/17 at 17:01; Status DC Miscellaneous Information (Post-op Orders (for Pharmacy)) STAT ONCE XX ; Start 03/12/17 at 10:30; Stop 03/12/17 at 15:19; Status DC Acetaminophen/ Hydrocodone Bitart (Abbott 5-325 Mg) 1 tab Q4H PRN PO PAIN 3<10 ; Start 03/12/17 at 10:30; Stop 03/12/17 at 16:33; Status DC Cefazolin Sodium 1000 mg/Sodium Chloride 100 ml @ 200 mls/hr Q6H IV Last administered on 03/13/17 04:52; Start 03/12/17 at 16:00; Stop 03/13/17 at 04:29; Status DC Morphine Sulfate (Morphine Inj) 3 mg Q3H PRN IV PUSH break thru pain Last administered on 03/13/17 02:59; Start 03/12/17 at 10:30; Stop 03/15/17 at 16:09; Status DC Ergocalciferol (Drisdol) 50,000 units ONCE ONCE PO ; Start 03/12/17 at 10:30; Stop 03/12/17 at 15:13; Status DC Cholecalciferol (Vitamin D3) 5,000 units DAILY PO Last administered on 09:21; Start 03/13/17 at 09:00 Warfarin Sodium (Coumadin) 3 mg DAILY PO Last administered on 03/15/17 08:25; Start 03/12/17 at 16:00; Stop 03/15/17 at 10:31; Status DC Albuterol Sulfate (*ALBUTEROL NEB PERIprocedure ONLY) 2.5 mg STK-MED ONCE NEB Last administered on 03/12/17 11:51; Start 03/12/17 at 11:50; Stop 03/12/17 at 11: 51; Status DC Fentanyl Citrate (fentaNYL INJ) 100 mcg STK-MED ONCE .ROUTE ; Start 03/12/17 at 11:53; Stop 03/12/17 at 11:54; Status DC Labetalol HCl (*TRANDATE INJ PERIprocedural Use ONLY) 100 mg STK-MED ONCE .ROUTE Last administered on 03/12/17 11:54; Start 03/12/17 at 11:53; Stop at 11:54; Status DC Miscellaneous Information ALL NURSING DEPARTME... UNSCH PRN .XX SEE LABEL COMMENTS; Start 03/12/17 at 10:58; Stop 03/13/17 at 10:57; Status DC Potassium Bicarb/ Potassium Chloride (K-Lyte Cl Eff) 50 meq ONCE ONCE PO Last administered on 03/13/17 17:12; Start 03/13/17 at 16:30; Stop 03/13/17 at 16: 31; Status DC Magnesium Sulfate/ Dextrose 100 ml @ 100 mls/hr Q1H IV Last administered on 12:59; Start 03/14/17 at 12:00; Stop 03/14/17 at 13:59; Status DC Potassium Chloride (KCl) 40 meq ONCE ONCE PO Last administered on 03/14/17 12: 10; Start 03/14/17 at 11:15; Stop 03/14/17 at 11:55; Status DC Potassium Chloride (KCl) 40 meq ONCE ONCE PO Last administered on 03/14/17 12: 10; Start 03/14/17 at 11:15; Stop 03/14/17 at 11:55; Status DC Potassium Phosphate (K-Phos) 1,000 mg Q12HR PO Last administered on 03/16/17 09 :21; Start 03/14/17 at 12:00 Potassium Chloride (KCl) 40 meq Q12HR PO Last administered on 03/16/17 09:22; Start 03/15/17 at 10:30 Potassium Chloride (KCl) 40 meq ONCE ONCE PO Last administered on 03/15/17 11: 43; Start 03/15/17 at 10:30; Stop 03/15/17 at 10:35; Status DC Sodium Phosphate 30 mmol/Sodium Chloride 260 ml @ 43.333 mls/ hr ONCE ONCE IV Last administered on 03/15/17 12:20; Start 03/15/17 at 12:00; Stop 03/15/17 at 17:59; Status DC Warfarin Sodium (Coumadin) 4 mg DAILY@1600 PO ; Start 03/16/17 at 16:00 Patient Medication Teaching (Coumadin Booklet) 1 ONCE ONCE OTHER Last administered on 03/15/17 10:45; Start 03/15/17 at 10:45; Stop 03/15/17 at 10:46; Status DC Heparin Sodium (Porcine) (Heparin Inj) 4,160 units ONCE ONCE IV ; Start at 12:30; Stop 03/15/17 at 12:30; Status DC Heparin Sodium/ Dextrose 250 ml @ 9.468 mls/ hr TITRATE PRN IV Coagulation management; Start 03/15/17 at 12:30; Stop 03/15/17 at 12:30; Status DC Enoxaparin Sodium (Lovenox Inj) 50 mg Q12H SQ Last administered on 03/16/17t 04: 40; Start 03/15/17 at 15:00 Alprazolam (Xanax) 0.25 mg Q8H PRN PO anxiety Last administered on 03/16/17 05: 17; Start 03/15/17 at 15:30 Warfarin Sodium (Coumadin) 2 mg ONCE ONCE PO ; Start 03/15/17 at 17:15; Stop 03/15/17 at 17:16; Status DC Urinary Catheter: No Vascular Central Line Catheter: No A/P Problem List: (1) Mechanical heart valve present ICD Code: Z95.2 - Presence of prosthetic heart valve (2) Hx of CABG ICD Code: Z95.1 - Presence of aortocoronary bypass graft Status: Acute (3) Aortic valve replaced ICD Code: Z95.2 - Presence of prosthetic heart valve Status: Acute (4) Dementia with behavioral disturbance ICD Code: F03.91 - Unspecified dementia with behavioral disturbance Status: Chronic (5) Fracture of femoral neck, left ICD Code: S72.002A - Fracture of unspecified part of neck of left femur, initial encounter for closed fracture (6) Pacemaker ICD Code: Z95.0 - Presence of cardiac pacemaker (7) HTN (hypertension) ICD Code: I10 - Essential (primary) hypertension Status: Chronic (8) CAD (coronary artery disease) ICD Code: I25.10 - Atherosclerotic heart disease of [place] coronary artery without angina pectoris Status: Chronic (9) Atrial fibrillation ICD Code: I48.91 - Unspecified atrial fibrillation Assessment and Plan Patient has left femoral neck fracture Will consult orthopedic surgery. Patient will be moderate risk for surgery due to advancing dementia or coronary disease and history of aortic valve mechanical valve Will need to be started on heparin if no surgery is planned within the next day or so--will hold heparin drip starting at 2 AM So the patient to have surgery tomorrow Hypertension Continue on her home medications Dementia continue on all her home medications Anxiety and depression continue on home medications Coronary artery disease history of CABG continue on home medications Heparin for the mechanical aortic valve or nothing surgery planned sooner hold at 2 AM so patient can have surgery tomorrow Date of Surgery: Mar 12, 2017 Preoperative Diagnosis: Impacted left femoral neck fracture Postoperative Diagnosis: Procedure: Left hip pinning Surgeon: Anastacio Belle SCDs and JAD madrid for DVT PPI for GI prophylaxis Will need to restart Coumadin in the future due to her chronic mechanical valve DAILY INR RELOAD COUMADIN- LMW HEPARIN BRIDGE AND COUMADIN --NOT AT GOAL HYPOKALEMIA 50MEQ KCL Replace potassium and magnesium and phosphorus see orders A.m. labs HAS UTI ON ROCEPHIN CAN SWITCH TO CEFTIN OR BACTRIM AT DC IF SNF CAN ACCEPT HER Levi Francois DO Mar 16, 2017 12:42
[2017-03-16] MEDS ORDERED: PANT40TA3 PO (13:20)
[2017-03-16] MEDS ORDERED: ALPR.25 PO (13:20)
[2017-03-16] MEDS ORDERED: SENN1TAB PO (13:20)
[2017-03-16] MEDS ORDERED: CHOL5000 PO (13:20)
[2017-03-16] MEDS ORDERED: BACT800T5 PO (13:23)
--- NOTE | 2017-03-16 13:24 | HHI.DS ---
Discharge Summary Admission Date Mar 10, 2017 at 16:18 Discharge Date: Mar 16, 2017 Admitting Diagnosis LEFT FEMORAL NECK FX, PACED RHYTHM (1) Mechanical heart valve present ICD Code: Z95.2 - Presence of prosthetic heart valve Diagnosis: Principal (2) Hx of CABG ICD Code: Z95.1 - Presence of aortocoronary bypass graft Diagnosis: Principal Status: Acute (3) Aortic valve replaced ICD Code: Z95.2 - Presence of prosthetic heart valve Diagnosis: Secondary Status: Acute (4) Dementia with behavioral disturbance ICD Code: F03.91 - Unspecified dementia with behavioral disturbance Diagnosis: Secondary Status: Chronic (5) Fracture of femoral neck, left ICD Code: S72.002A - Fracture of unspecified part of neck of left femur, initial encounter for closed fracture Diagnosis: Principal (6) Pacemaker ICD Code: Z95.0 - Presence of cardiac pacemaker Diagnosis: Secondary (7) HTN (hypertension) ICD Code: I10 - Essential (primary) hypertension Diagnosis: Secondary Status: Chronic (8) CAD (coronary artery disease) ICD Code: I25.10 - Atherosclerotic heart disease of [place] coronary artery without angina pectoris Diagnosis: Secondary Status: Chronic (9) Atrial fibrillation ICD Code: I48.91 - Unspecified atrial fibrillation Diagnosis: Principal Procedures Date of Surgery: Mar 12, 2017 Preoperative Diagnosis: Impacted left femoral neck fracture Postoperative Diagnosis: Procedure: Left hip pinning Surgeon: Anastacio Peterson Brief History - From Admission Patient is a 86-year-old [facility] patient. Who presented to the emergency department with pain in the left hip. Patient was found to have a left femoral neck fracture. Patient is confused and demented. Patient is normally similarly somewhat ambulatory without assistance has not been moving for the last 4 days since her fall Patient was brought to the emergency department for evaluation of her left femoral neck fracture will undergo go evaluation with orthopedic surgery and will keep her nothing by mouth in case surgery is tomorrow Patient is supposed to have a mechanical valve. For which she supposed to be on chronic Coumadin but is subtherapeutic at this time will hold this so that she can have surgery as soon as possible We'll started on a heparin drip that can be discontinued once surgery decide when to take her to fix the hip CBC/BMP: 03/16/17 0655 03/16/17 0655 Significant Findings Laboratory Tests Test 03/14/17 07:07 03/14/17 07:30 03/15/17 07:36 03/15/17 15:20 Red Blood Count 2.98 MIL/MM3 (4.00-5.30) 3.13 MIL/MM3 (4.00-5.30) 2.95 MIL/MM3 (4.00-5.30) Hemoglobin 9.3 GM/DL (11.6-15.3) 9.7 GM/DL (11.6-15.3) 9.4 GM/DL (11.6-15.3) Hematocrit 27.6 % (35.0-46.0) 28.7 % (35.0-46.0) 27.1 % (35.0-46.0) Neutrophils (%) (Auto) 75.6 % (16.0-70.0) Monocytes (%) (Auto) 8.8 % (0.0-8.0) Neutrophils % (Manual) 75 % (16-70) Metamyelocytes 4 % (0-1) Myelocytes 1 % (0-0) Nucleated Red Blood Cells 1 /100 WBC (0-0) Tear Drop Cells 1+ (NORMAL) Ovalocytes 1+ (NORMAL) 1+ (NORMAL) Acanthocytes OCC (NORMAL) OCC (NORMAL) Prothrombin Time 19.0 SEC (9.8-11.6) 17.2 SEC (9.8-11.6) 21.0 SEC (9.8-11.6) Activated Partial Thromboplast Time 59.5 SEC (24.3-30.1) Albumin 3.0 GM/DL (3.4-5.0) 3.0 GM/DL (3.4-5.0) Calcium Level 8.2 MG/DL (8.5-10.1) 8.1 MG/DL (8.5-10.1) Phosphorus Level 1.8 MG/DL (2.5-4.9) 1.9 MG/DL (2.5-4.9) Alkaline Phosphatase 129 U/L (45-117) 125 U/L (45-117) Aspartate Amino Transf (AST/SGOT) 42 U/L (15-37) Potassium Level 2.6 MEQ/L (3.5-5.1) 2.7 MEQ/L (3.5-5.1) Estimat Glomerular Filtration Rate 62 ML/MIN (>89) 76 ML/MIN (>89) Eosinophils (%) (Auto) 6.6 % (0.0-4.0) Eosinophils # (Auto) 0.5 TH/MM3 (0-0.4) Keratocytes OCC (NORMAL) Test 03/16/17 06:55 Red Blood Count 2.79 MIL/MM3 (4.00-5.30) Hemoglobin 8.8 GM/DL (11.6-15.3) Hematocrit 25.6 % (35.0-46.0) Monocytes (%) (Auto) 8.1 % (0.0-8.0) Eosinophils (%) (Auto) 11.2 % (0.0-4.0) Eosinophils # (Auto) 0.7 TH/MM3 (0-0.4) Prothrombin Time 28.5 SEC (9.8-11.6) Activated Partial Thromboplast Time 42.7 SEC (24.3-30.1) Total Protein 5.5 GM/DL (6.4-8.2) Albumin 2.3 GM/DL (3.4-5.0) Calcium Level 7.1 MG/DL (8.5-10.1) Estimat Glomerular Filtration Rate 72 ML/MIN (>89) Protein Corrected Calcium 7.9 MG/DL (8.5-10.1) Imaging Last Impressions Hip X-Ray 03/12/17 0000 Signed Impressions: Service Date/Time: Sunday, March 12, 2017 10:21 - CONCLUSION: Screw fixation of the left hip subcapital fracture. Near-anatomic alignment. No acute complication demonstrated. Ruben Aguirre MD CT Angiography 03/10/17 1518 Signed Impressions: Service Date/Time: Friday, March 10, 2017 15:44 - CONCLUSION: Cardiomegaly with reflux into the hepatic veins. There is no central pulmonary emboli. Minimal aneurysmal dilatation descending aorta. Levi Delaney MD FACR Hip and Pelvis X-Ray 03/10/17 1422 Signed Impressions: Service Date/Time: Friday, March 10, 2017 14:51 - CONCLUSION: Probable femoral neck fracture. CT scan would be of benefit. Levi Delaney MD FACR Chest X-Ray 03/10/17 1422 Signed Impressions: Service Date/Time: Friday, March 10, 2017 14:54 - CONCLUSION: No acute disease. Levi Delaney MD FACR Pelvis CT 03/10/17 0000 Signed Impressions: Service Date/Time: Friday, March 10, 2017 15:51 - CONCLUSION: 1. Subtle slightly impacted subcapital left hip fracture. 2. Osteopenia and degenerative change in the lumbar spine. 3. Diverticulosis. Ruben Dalton MD PE at Discharge GENERAL: This is a well-nourished, well-developed patient, in no apparent distress.dementia not oriented and not speaking Turkish SKIN: No rashes, ecchymoses or lesions. Cool and dry. HEAD: Atraumatic. Normocephalic. No temporal or scalp tenderness. EYES: Pupils equal round and reactive. Extraocular motions intact. No scleral icterus. No injection or drainage. ENT: Nose without bleeding, purulent drainage or septal hematoma. Throat without erythema, tonsillar hypertrophy or exudate. Uvula midline. Airway patent. NECK: Trachea midline. No JVD or lymphadenopathy. Supple, nontender, no meningeal signs. CARDIOVASCULAR: IRRegular rate and rhythm without murmurs, gallops, or rubs. Paced rate and rhythm S1-S2 no S3 or S4 does have a click RESPIRATORY: Clear to auscultation. Breath sounds equal bilaterally. No wheezes , rales, or rhonchi. GASTROINTESTINAL: Abdomen soft, non-tender, nondistended. No hepato-splenomegaly , or palpable masses. No guarding. MUSCULOSKELETAL: Extremities without clubbing, cyanosis, or edema. No joint tenderness, effusion, or edema noted. No calf tenderness. Negative Homans sign bilaterally. Tender left hip increased range of motion NEUROLOGICAL: Awake and alert but very confused. Cranial nerves II through XII intact. Motor and sensory grossly within normal limits. 4 out of 5 muscle strength in all muscle groups. ABNormal speech. Insight and judgment not able to be measured Patient is actively demented mood and behavior inappropriate Hospital Course Patient is a 86-year-old [facility] patient. Who presented to the emergency department with pain in the left hip. Patient was found to have a left femoral neck fracture. Patient is confused and demented. Patient is normally similarly somewhat ambulatory without assistance has not been moving for the last 4 days since her fall Patient was brought to the emergency department for evaluation of her left femoral neck fracture will undergo go evaluation with orthopedic surgery and will keep her nothing by mouth in case surgery is tomorrow Patient is supposed to have a mechanical valve. For which she supposed to be on chronic Coumadin but is subtherapeutic at this time will hold this so that she can have surgery as soon as possible We'll started on a heparin drip that can be discontinued once surgery decide when to take her to fix the hip 9-4 surgery decided to perform surgery tomorrow Will hold heparin drip starting at 2 AM tonight A.m. labs No new complaints Will need long-term anticoagulation due to her chronic mechanical valve 9-5 HAD SURGERY TODAY Date of Surgery: Mar 12, 2017 Preoperative Diagnosis: Impacted left femoral neck fracture Postoperative Diagnosis: Procedure: Left hip pinning Surgeon: Anastacio Peterson SEEN POST OP IN HER ROOM DW PT AND FAMILY NO NEW COMPLAINTS WILL NEED REHAB AFTER DC WILL NEED TO BE RELOADED ON COUMADIN 9-6 RELOAD COUMADIN AM LABS CONFUSED BUT IS CHRONICALLY CONFUSED PER FAMILY HAS DEMENTIA RELOAD COUMADIN 9-7 continue to re-load to Coumadin Replace potassium and magnesium and phosphorus Discussed with patient and RN Monitor labs await SNF acceptance and placement 9-8 NEEDS INR BETWEEN 2.0 AND 3.0 NOT THERE YET INCREASE COUMADIN TO 4MG PO DAILY REPLACE, POTASSIUM, MAGNESIUM HYPOPHOS 9-9 HOPEFULLY TO SNF IF CAN GET HER ANTIBIOTICS IF NOT THEN AFTER THE STORM TO SNF IF CAN GET HER ANTIBIOTICS Pt Condition on Discharge: Good Discharge Disposition: Discharge to SNF Discharge Time: > 30 minutes Discharge Instructions DIET: Follow Instructions for: Heart Healthy Diet, Coumadin (Warfarin) Diet Activities you can perform: Weight Bearing as Jeniffer Follow up Referrals: Orthopedics - 2 Weeks @ [facility] with Anastacio Peterson MD PCP Follow-up - 2-3 Days with Rip Martinez MD New Medications: Sulfamethoxazole-Trimethoprim (Bactrim DS) 800-160 Mg Tab 1 TAB PO BID for Infection, #14 TAB 0 Refills Alprazolam (Xanax) 0.25 Mg Tab 0.25 MG PO Q8H PRN for anxiety for 30 Days, #90 TAB Cholecalciferol (Vitamin D3) 5,000 Unit Cap 5000 UNITS PO DAILY for Calcium Supplement, #30 CAP Pantoprazole (Pantoprazole) 40 Mg Tab 40 MG PO DAILY for Heartburn Management, #30 TAB Sennosides-Docusate Sodium (Senna Plus 8.6-50 mg) 8.6 Mg-50 Mg Tab 2 TAB PO BID for Constipation, #120 TAB Continued Medications: Atenolol (Atenolol) 25 Mg Tab 25 MG PO DAILY for Blood Pressure Management for 30 Days, TAB Atorvastatin (Atorvastatin) 40 Mg Tab 40 MG PO HS for Cholesterol Management, #30 TAB 0 Refills Donepezil (Donepezil) 10 Mg Tab 10 MG PO HS for Dementia, #30 TAB 0 Refills Isosorbide Mononitrate ER (Isosorbide Mononitrate ER) 60 Mg Tab 60 MG PO DAILY for Prevent Chest Pain, #30 TAB 0 Refills Memantine (Namenda) 10 Mg Tab 10 MG PO BID for Alzheimer Disease, #30 TAB 0 Refills Quetiapine (Quetiapine) 25 Mg Tab 50 MG PO HS for Agitation for 30 Days, TAB Sertraline (Zoloft) 50 Mg Tab 100 MG PO DAILY for Anxiety for 30 Days, TAB Warfarin (Warfarin) 3 Mg Tab 3 MG PO DAILY for Blood Clot Prevention, #30 TAB 0 Refills Levi Francois DO Mar 16, 2017 13:24
[2017-03-16] MEDS ORDERED: PRIL20TA2 PO (14:14)
[2017-03-16] MEDS ORDERED: WARFARIN SOD 3 MG TAB PO SCH (16:00)
[2017-03-16] MEDS ORDERED: WARFARIN SOD 4 MG TAB PO SCH (16:00)
== END 2017-03-16 17:11 | DRG 481 ==
LOC: NEPE 14:12 → NEDA 16:18 → N04A 20:34 → N04B 03-13 18:12
PROVIDERS: ADMIT Hospitalist; ATTEND Hospitalist
PROC: 0QS734Z Reposition Left Upper Femur with Internal Fixation Device, Percutaneous Approach (ICD-10-PCS; principal; 2017-03-12 09:28)
DX: S72.142A Displaced intertrochanteric fracture of left femur, initial encounter for closed fracture (principal); N17.9 Acute kidney failure, unspecified; F03.91 Unspecified dementia, unspecified severity, with behavioral disturbance; E83.39 Other disorders of phosphorus metabolism; N39.0 Urinary tract infection, site not specified; I48.91 Unspecified atrial fibrillation; Z95.1 Presence of aortocoronary bypass graft; I10 Essential (primary) hypertension; Z95.2 Presence of prosthetic heart valve; I25.10 Atherosclerotic heart disease of native coronary artery without angina pectoris; Z79.01 Long term (current) use of anticoagulants; Z95.0 Presence of cardiac pacemaker; F41.8 Other specified anxiety disorders; Z85.038 Personal history of other malignant neoplasm of large intestine; K57.90 Diverticulosis of intestine, part unspecified, without perforation or abscess without bleeding; M85.80 Other specified disorders of bone density and structure, unspecified site; E87.6 Hypokalemia; K21.9 Gastro-esophageal reflux disease without esophagitis; M81.0 Age-related osteoporosis without current pathological fracture; Z78.1 Physical restraint status
CPT/HCPCS: 51702; 71010; 71275; 72192; 73502; 76000; 76937; 80053; 81001; 82306; 83036; 83735; 84100; 84439; 84443; 85007; 85025; 85027; 85610; 85730; 87077; 87086; 87186; 93005; 94664; 96361; 96374; C1713; C1769; J0690; J0696; J1580; J1644; J1650; J2270; J2310; J2370; J2405; J2710; J3010; J3370; J3475; J7030; J7050; J7613; Q9967